=== PATIENT | female | born 1965 | race Asian ===

== ENCOUNTER 2020-03-18 11:39 | Outpatient (REF) | payer OTHER, SELFPAY | END 2020-03-18 11:40 | disposition home or self-care (01) | LOC: HO.LAB 11:39 | PROVIDERS: PCP Internal Medicine; Visit Provider Internal Medicine | DX: Z20.828 Contact with and (suspected) exposure to other viral communicable diseases (principal) | CPT/HCPCS: 87635 ==

== ENCOUNTER 2020-05-28 17:50 | Outpatient (REF) | payer OTHER, SELFPAY | END 2020-05-28 17:51 | disposition home or self-care (01) | LOC: HO.LAB 17:50 | PROVIDERS: Visit Provider Internal Medicine | DX: Z20.828 Contact with and (suspected) exposure to other viral communicable diseases (principal) | CPT/HCPCS: C9803; U0003 ==

== ENCOUNTER → 2020-06-27 08:29 | Outpatient (BNVA) | payer OTHER, SELFPAY | PROVIDERS: PCP Internal Medicine; Visit Provider Nurse Practitioner | DX: Z13.89 Encounter for screening for other disorder (principal) | CPT/HCPCS: Q3014 ==

== ENCOUNTER 2020-09-23 11:42 | Outpatient (REF) | payer OTHER, SELFPAY ==
[2020-09-23 12:28] LABS: MANUAL DIFF FLAG NO
[2020-09-23 12:36] LABS: Basophils Percent Auto 0.6 % (0-2); Eosinophils Absolute Auto 0.2 X10*3/uL (0.0-0.4); Eosinophils Percent Auto 3.4 % (0-4); Hematocrit 44.9 % (37-47); Hemoglobin 14.6 g/dl (12.0-16.0); Imm Gran Abs Auto 0.01 X10*3/uL (0.00-0.03); Imm Gran Pct Auto 0.2 % (0.0-0.4); Lymphocytes Percent Auto 18.4 % (20-40); Mean Corpuscular HGB Conc 32.5 g/dl (31.0-35.0); Mean Corpuscular Hemoglobin 28.2 pg (27.0-33.0); Mean Corpuscular Volume 86.8 fL (80-98); Mean Platelet Volume 10.9 fL (9.4-12.3); Monocytes Absolute Auto 0.4 X10*3/uL (0.1-1.2); Monocytes Percent Auto 6.6 % (2-11); Neutrophils Absolute Auto 3.8 X10*3/uL (2.0-8.3); Neutrophils Percent Auto 70.8 % (45-73); Platelet Count 189 X10*3/uL (160-400); Red Blood Count 5.17 X10*6/uL (4.20-5.50); Red Cell Distribution Width 14.2 % (11.0-16.0); White Blood Count 5.3 X10*3/uL (4.8-10.8)
[2020-09-23 13:28] LABS: Thyroid Stimulating Hormone 1.79 uIU/mL (0.32-4.0)
[2020-09-23 14:08] LABS: Vitamin B12 242 pg/mL (200-900)
== END 2020-09-23 11:43 | disposition home or self-care (01) ==
LOC: HO.LAB 11:42
PROVIDERS: PCP Internal Medicine; Visit Provider Internal Medicine
DX: L65.9 Nonscarring hair loss, unspecified (principal); R53.83 Other fatigue; D64.9 Anemia, unspecified
CPT/HCPCS: 36415; 82607; 82746; 84443; 85025

== ENCOUNTER 2020-09-25 11:13 | Outpatient (REF) | payer OTHER, SELFPAY ==
[2020-09-25 13:47] LABS: Alanine Aminotransferase 19 U/L (0-31); Albumin Level 4.5 g/dL (3.5-5.0); Alkaline Phosphatase 84 U/L (39-117); Anion Gap 16 (12-20); Aspartate Amino Transferase 20 U/L (5-31); Bilirubin Total 0.5 mg/dL (0.0-1.0); Blood Urea Nitrogen 26 mg/dL (9-16); Calcium 10.2 mg/dL (8.4-10.2); Carbon Dioxide 26 mmol/L (22-29); Chloride 105 mmol/L (96-108); Cholesterol 160 mg/dL; Estimated Glomerular Filt Rate 30; Glucose Fasting 127 mg/dL (60-99); HDL Cholesterol 40 mg/dL; LDL Cholesterol Calculated 82 mg/dl; Potassium 4.5 mmol/L (3.3-5.1); Sodium 142 mmol/L (135-145); Total Protein 7.3 g/dL (6.5-8.0); Triglycerides 192 mg/dL
[2020-09-29 13:27] LABS: Vitamin D 25-OH, D2 7 ng/mL; Vitamin D 25-OH, D3 26 ng/mL; Vitamin D 25-OH, Total 33 ng/mL (30-100)
== END 2020-09-25 11:14 | disposition home or self-care (01) ==
LOC: HO.LAB 11:13
PROVIDERS: PCP Internal Medicine; Visit Provider Internal Medicine
DX: E78.5 Hyperlipidemia, unspecified (principal); I10 Essential (primary) hypertension; E55.9 Vitamin D deficiency, unspecified
CPT/HCPCS: 36415; 80053; 80061; 82306

== ENCOUNTER → 2020-10-25 11:02 | Outpatient (BNVA) | payer OTHER, SELFPAY | PROVIDERS: PCP Internal Medicine; Referring Provider Internal Medicine; Visit Provider Internal Medicine Gastroenterology | DX: K86.9 Disease of pancreas, unspecified (principal); Z94.0 Kidney transplant status; Z79.899 Other long term (current) drug therapy | CPT/HCPCS: 99212 ==

== ENCOUNTER 2020-12-09 09:33 | Outpatient (REF) | payer OTHER, SELFPAY ==
--- NOTE | ~2020-12-09 | US_ITS ---
EXAMINATION: US ABDOMEN COMPLETE CLINICAL INFORMATION: History of kidney transplant. Disease of pancreas, unspecified. COMPARISON: CT abdomen and pelvis 11/14/2019. X-ray KUB 11/06/2019. Ultrasound pelvis 10/19/2019. TECHNIQUE: Real-time imaging of the abdominal viscera. FINDINGS: PANCREAS: The pancreas is homogeneous in echotexture. The pancreatic duct measures 0.3 cm. ABDOMINAL AORTA: The proximal, mid, and distal segments are normal in caliber. INFERIOR VENA CAVA: Visualized portions are normal. LIVER: There are multiple anechoic cysts. The largest cyst in the right hepatic lobe measures 1.1 x 1.1 x 1.0 cm. The liver is normal in size. The liver contour is normal. Parenchymal echogenicity is normal. No focal solid mass seen. There is no intrahepatic biliary duct dilatation seen. GALLBLADDER: Gallbladder wall thickness measures 0.1 cm. The gallbladder is physiologically distended without evidence of stones, sludge, polyps, wall thickening or pericholecystic fluid. COMMON BILE DUCT: Normal in caliber measuring 1.0 cm in diameter. RIGHT KIDNEY: There are several anechoic cysts. No hydronephrosis. No renal calculi or focal parenchymal lesions. The kidney measures 21.0 cm in maximum dimension. LEFT KIDNEY: There are several anechoic cysts. No hydronephrosis. No renal calculi or focal parenchymal lesions. The kidney measures 20.2 cm in maximum dimension. SPLEEN: Normal. The spleen measures 11.5 cm in maximum dimension. FREE FLUID: None. GALLBLADDER: There is a transplant kidney in right lower quadrant measuring 10.9 cm. There is an anechoic cyst seen adjacent to the lower pole of right kidney, likely a right adnexal cyst measuring 3.5 x 3.2 x 4.3 cm. US/US abdomen complete IMPRESSION: Bilateral polycystic kidney disease. Transplanted right kidney is unremarkable except for a small cyst visualized. Adjacent to the lower pole of right transplanted kidney in the right adnexa, there is an ovarian cyst measuring 4.3 cm. Multiple hepatic cysts, largest measuring 1.1 cm.
== END 2020-12-09 09:34 | disposition home or self-care (01) ==
LOC: HO.US 09:33
PROVIDERS: Visit Provider Internal Medicine Gastroenterology
DX: K86.9 Disease of pancreas, unspecified (principal); Z94.0 Kidney transplant status
CPT/HCPCS: 76700

== ENCOUNTER 2020-12-25 10:09 | Outpatient (REF) | payer OTHER, SELFPAY ==
--- NOTE | ~2020-12-25 | XR_ITS ---
EXAMINATION: XR ANKLE, BILATERAL CLINICAL INFORMATION: Pain. COMPARISON: 10/22/2015 TECHNIQUE: 3 views of each ankle. FINDINGS: LEFT ANKLE: There is no evidence of acute fracture or dislocation of the left ankle. No significant degenerative changes identified. Ankle mortise intact. Prominent Achilles tendon calcification present. No ankle effusion appreciated. RIGHT ANKLE: Patient status post previous right ankle fracture with sideplate and screws seen within the distal fibula and 2 screws through the medial malleolus. There is loss of the ankle joint space with subchondral cyst formation seen about the talar dome. No effusion appreciated. There is some calcification of the interosseous ligament. XR/XR ankle LT min 3V IMPRESSION: No significant left ankle abnormality appreciated. Severe right ankle degenerative change with hardware in place.
--- NOTE | ~2020-12-25 | XR_ITS ---
EXAMINATION: XR ANKLE, BILATERAL CLINICAL INFORMATION: Pain. COMPARISON: 10/22/2015 TECHNIQUE: 3 views of each ankle. FINDINGS: LEFT ANKLE: There is no evidence of acute fracture or dislocation of the left ankle. No significant degenerative changes identified. Ankle mortise intact. Prominent Achilles tendon calcification present. No ankle effusion appreciated. RIGHT ANKLE: Patient status post previous right ankle fracture with sideplate and screws seen within the distal fibula and 2 screws through the medial malleolus. There is loss of the ankle joint space with subchondral cyst formation seen about the talar dome. No effusion appreciated. There is some calcification of the interosseous ligament. XR/XR ankle RT min 3V IMPRESSION: No significant left ankle abnormality appreciated. Severe right ankle degenerative change with hardware in place.
[2020-12-25 10:58] LABS: MANUAL DIFF FLAG NO
[2020-12-25 11:02] LABS: Basophils Percent Auto 0.4 % (0-2); Eosinophils Absolute Auto 0.2 X10*3/uL (0.0-0.4); Hematocrit 45.5 % (37-47); Hemoglobin 14.8 g/dl (12.0-16.0); Imm Gran Abs Auto 0.01 X10*3/uL (0.00-0.03); Imm Gran Pct Auto 0.2 % (0.0-0.4); Lymphocytes Absolute Auto 0.8 X10*3/uL (1.2-4.9); Lymphocytes Percent Auto 15.3 % (20-40); Mean Corpuscular HGB Conc 32.5 g/dl (31.0-35.0); Mean Corpuscular Hemoglobin 27.7 pg (27.0-33.0); Mean Platelet Volume 10.8 fL (9.4-12.3); Monocytes Absolute Auto 0.4 X10*3/uL (0.1-1.2); Monocytes Percent Auto 6.4 % (2-11); Neutrophils Percent Auto 73.7 % (45-73); Platelet Count 200 X10*3/uL (160-400); Red Blood Count 5.35 X10*6/uL (4.20-5.50); Red Cell Distribution Width 13.5 % (11.0-16.0); White Blood Count 5.5 X10*3/uL (4.8-10.8)
[2020-12-25 11:23] LABS: Alanine Aminotransferase 14 U/L (0-31); Albumin Level 4.3 g/dL (3.5-5.0); Alkaline Phosphatase 86 U/L (39-117); Anion Gap 13 (12-20); Aspartate Amino Transferase 16 U/L (5-31); Bilirubin Total 0.6 mg/dL (0.0-1.0); Blood Urea Nitrogen 22 mg/dL (9-16); Calcium 10.2 mg/dL (8.4-10.2); Carbon Dioxide 28 mmol/L (22-29); Chloride 104 mmol/L (96-108); Cholesterol 165 mg/dL; Estimated Glomerular Filt Rate 34; Glucose Fasting 156 mg/dL (60-99); HDL Cholesterol 40 mg/dL; LDL Cholesterol Calculated 87 mg/dl; Potassium 4.6 mmol/L (3.3-5.1); Sodium 140 mmol/L (135-145); Total Protein 6.9 g/dL (6.5-8.0); Triglycerides 192 mg/dL
[2020-12-29 13:31] LABS: Vitamin D 25-OH, D2 6 ng/mL; Vitamin D 25-OH, D3 23 ng/mL; Vitamin D 25-OH, Total 29 ng/mL (30-100)
== END 2020-12-25 10:10 | disposition home or self-care (01) ==
LOC: HO.XRAY 10:09
PROVIDERS: PCP Internal Medicine; Visit Provider Internal Medicine
DX: M25.571 Pain in right ankle and joints of right foot (principal); M25.572 Pain in left ankle and joints of left foot; D64.9 Anemia, unspecified; E78.5 Hyperlipidemia, unspecified; M54.9 Dorsalgia, unspecified; E55.9 Vitamin D deficiency, unspecified
CPT/HCPCS: 36415; 73610; 80053; 80061; 82306; 85025

== ENCOUNTER → 2021-02-04 10:40 | Outpatient (BNVA) | payer OTHER, SELFPAY | PROVIDERS: PCP Internal Medicine; Visit Provider Internal Medicine Gastroenterology | CPT/HCPCS: Q3014 ==

== ENCOUNTER 2021-03-18 12:08 | Outpatient (REF) | payer OTHER, SELFPAY ==
[2021-03-18 13:02] LABS: Appearance Urine HAZY; Color Urine YELLOW; Glucose Urine UA NEG (NEG); Leukocyte Esterase Urine TRACE (NEG); Nitrite Urine NEG (NEG); Specific Gravity - Urine 1.025 (1.005-1.025); UACC Culture Trigger YES; Urine Blood TRACE (NEG); Urine Ketones NEG (NEG); Urine Protein TRACE MG/DL (NEG-TRACE)
[2021-03-18 13:08] LABS: Bacteria Urine 1+ /LPF; Mucus Urine 1+ /LPF; Renal Epithelial Cells Urine TRACE /LPF; Squamous Epithelial Cell Urine 2+ /LPF; WBC Urine 30-49 /HPF (0-4)
== END 2021-03-18 12:09 | disposition home or self-care (01) ==
LOC: HO.LAB 12:08
PROVIDERS: PCP Internal Medicine; Visit Provider Physician Assistant
DX: R31.9 Hematuria, unspecified (principal)
CPT/HCPCS: 81001; 81003; 87086; 87088; 87186

== ENCOUNTER → 2021-07-14 09:33 | Outpatient (BNVA) | payer MEDICAID, SELFPAY | PROVIDERS: PCP Internal Medicine; Referring Provider Internal Medicine; Visit Provider Internal Medicine Gastroenterology | DX: K59.09 Other constipation (principal) | CPT/HCPCS: 99212 ==

== ENCOUNTER 2021-08-19 12:40 | Outpatient (REF) | payer MEDICAID, SELFPAY ==
--- NOTE | ~2021-08-19 | MM_ITS ---
EXAMINATION: MM SCREENING DIGITAL BREAST TOMOSYNTHESIS, BILATERAL CLINICAL INFORMATION: Screening. Asymptomatic. The lifetime risk of breast cancer based on the Tyrer-Cuzick Model is 6%. COMPARISON: Mammography: December 14, 2018 and studies dating back to January 14, 2015. TECHNIQUE: Digital breast tomosynthesis is performed in both the craniocaudal and mediolateral oblique views along with computer-aided detection (CAD). Synthesized 2D images are generated from the tomosynthesis. Cleavage view also performed. FINDINGS: The breasts are almost entirely fatty (ACR BI-RADS breast composition Category a). There are no significant masses, abnormal calcifications, or other abnormalities. MM/MM tomosynthesis screening BI IMPRESSION: There are no significant changes from prior study. ASSESSMENT: BI-RADS 1: Negative RECOMMENDATION: Routine annual mammography screening. This patient's information was entered into a reminder system with a target due date for their next mammogram.
== END 2021-08-19 12:41 | disposition home or self-care (01) ==
LOC: HO.MAMMO 12:40
PROVIDERS: PCP Internal Medicine; Visit Provider Internal Medicine
DX: Z12.31 Encounter for screening mammogram for malignant neoplasm of breast (principal)
CPT/HCPCS: 77063; 77067

== ENCOUNTER 2021-12-12 07:36 | Outpatient (REF) | payer OTHER, SELFPAY ==
[2021-12-12 08:04] LABS: MANUAL DIFF FLAG NO
[2021-12-12 08:14] LABS: Basophils Percent Auto 0.7 % (0-2); Eosinophils Absolute Auto 0.3 X10*3/uL (0.0-0.4); Hematocrit 43.3 % (37.0-47.0); Hemoglobin 14.2 g/dl (12.0-16.0); Imm Gran Abs Auto 0.01 X10*3/uL (0.00-0.03); Imm Gran Pct Auto 0.2 % (0.0-0.4); Lymphocytes Absolute Auto 1.1 X10*3/uL (1.2-4.9); Lymphocytes Percent Auto 19.5 % (20-40); Mean Corpuscular HGB Conc 32.8 g/dl (31.0-35.0); Mean Corpuscular Hemoglobin 28.2 pg (27.0-33.0); Mean Corpuscular Volume 85.9 fL (80.0-98.0); Mean Platelet Volume 10.6 fL (9.4-12.3); Monocytes Absolute Auto 0.5 X10*3/uL (0.1-1.2); Monocytes Percent Auto 8.6 % (2-11); Neutrophils Absolute Auto 3.6 x10*3/uL (2.0-8.3); Platelet Count 189 X10*3/uL (160-400); Red Blood Count 5.04 X10*6/uL (4.20-5.50); Red Cell Distribution Width 13.3 % (11.0-16.0); White Blood Count 5.4 X10*3/uL (4.8-10.8)
[2021-12-12 09:02] LABS: Alanine Aminotransferase 17 U/L (0-31); Albumin Level 4.5 g/dL (3.5-5.0); Alkaline Phosphatase 90 U/L (39-117); Anion Gap 12 (12-20); Aspartate Amino Transferase 18 U/L (5-31); Bilirubin Total 0.4 mg/dL (0.0-1.0); Blood Urea Nitrogen 19 mg/dL (9-16); Calcium 9.7 mg/dL (8.4-10.2); Carbon Dioxide 26 mmol/L (22-29); Chloride 106 mmol/L (96-108); Cholesterol 194 mg/dL; Estimated Glomerular Filt Rate 34; Glucose Fasting 171 mg/dL (60-99); HDL Cholesterol 36 mg/dL; LDL Cholesterol Calculated 103 mg/dl; Potassium 4.2 mmol/L (3.3-5.1); Sodium 140 mmol/L (135-145); Total Protein 7.3 g/dL (6.5-8.0); Triglycerides 277 mg/dL
[2021-12-12 09:07] LABS: Vitamin D 25-OH Total 26.4 ng/mL (>30)
== END 2021-12-12 07:37 | disposition home or self-care (01) ==
LOC: HO.LAB 07:36
PROVIDERS: PCP Internal Medicine; Visit Provider Internal Medicine
DX: K59.04 Chronic idiopathic constipation (principal); E78.5 Hyperlipidemia, unspecified; E55.9 Vitamin D deficiency, unspecified; I10 Essential (primary) hypertension
CPT/HCPCS: 36415; 80053; 80061; 82306; 85025

== ENCOUNTER 2022-01-26 07:22 | Day surgery (SDC) | payer OTHER, SELFPAY ==
--- NOTE | 2021-10-06 13:24 | HO.ANESPROP2 ---
HPI - Anesthesia Eval Consult details Narrative: 56yo F for Upper Endoscopy s/p renal transplant 2018 [facility] Active Problems Active Problems: All Active Problems (Updated 09/10/21 @ 11:08 by Jessica Dietz MD) Diabetes mellitus (Acute) UTI (urinary tract infection) (Acute) Right ankle pain (Acute) Left ankle pain (Acute) Pedal edema (Acute) Fatigue (Acute) Hair loss (Acute) Back pain (Acute) Pancreatic lesion (Acute) Pneumonia due to COVID-19 virus (Acute) Essential hypertension (Acute) Kidney transplant recipient (Acute) Chronic idiopathic constipation (Acute) Hemorrhoids (Acute) GERD (gastroesophageal reflux disease) (Acute) Irritable bowel syndrome with constipation (Acute) Past Medical History Medical History (Updated 09/10/21 @ 11:08 by Jessica Dietz MD) Back pain Diabetes mellitus Essential hypertension Fatigue Hair loss Left ankle pain Pancreatic lesion Pneumonia due to COVID-19 virus Right ankle pain Family History Family History Father CVD (cardiovascular disease) Prostate cancer Mother No problems noted. Surgical History Surgical History AV fistula History of benign breast tumor History of foot surgery History of lipoma History of tubal ligation Hx of colonoscopy Kidney transplant recipient Kidney transplant status Social History Social History (Updated 09/10/21 @ 10:49 by Jessica Dietz MD) Household Members: Children Housing: Apartment Alcohol intake: never Patient Tobacco Use Status: Former Tobacco user Tobacco use type: Cigarette e-Cigarette/Vaping Use: Never Used Second Hand Smoke Exposure: No service: No Current occupational status: unemployed Cognitive needs: No Hearing needs: No Vision needs: No Meds Allergies Allergy/AdvReac Type Severity Reaction Status Date / Time amlodipine AdvReac Intermediate leg edema Verified 09/10/21 10:44 Home Medications Medication Instructions Recorded Confirmed Last Taken Type dexlansoprazole 60 mg 60 mg PO DAILY 04/01/20 09/10/21 Unknown History capsule,biphase delayed release (Dexilant) docusate sodium 100 mg capsule 100 mg PO DAILY 04/01/20 09/10/21 Unknown History (Colace) lipase 3,000-protease PO 04/01/20 09/10/21 Unknown History 9,500-amylase 15,000 unit capsule, delayed rel (Creon) ferrous sulfate 325 mg (65 mg 325 mg PO DAILY 06/20/20 09/10/21 Unknown History iron) tablet mycophenolate sodium 180 mg 540 mg PO BID tab 06/20/20 09/10/21 Unknown History tablet,delayed release sodium bicarbonate 650 mg tablet 650 mg PO BID 06/20/20 09/10/21 Unknown History polyethylene glycol 3350 17 17 g PO DAILY 06/27/20 09/10/21 Unknown History gram/dose oral powder (Miralax) minoxidil 2 % topical solution 1 ml TOPICAL BID 09/18/20 09/10/21 Unknown History furosemide 40 mg tablet 40 mg PO DAILY 11/19/20 09/10/21 Unknown History atorvastatin 40 mg tablet 40 mg PO BEDTIME 02/04/21 09/10/21 Unknown History calcitriol 0.25 mcg capsule 0.25 mcg PO DAILY 02/04/21 09/10/21 Unknown History labetalol 200 mg tablet 200 mg PO BID 02/04/21 09/10/21 Unknown History nifedipine 90 mg tablet,extended 90 mg PO DAILY 02/04/21 09/10/21 Unknown History release nifedipine 60 mg tablet,extended 60 mg PO DAILY 07/14/21 09/10/21 Unknown History release 24 hr gabapentin 100 mg capsule 100 mg PO BEDTIME 09/10/21 09/10/21 Unknown History Exam Exam Date and Time: October 06, 2021 1324 Pertinent Lab Results Pertinent Lab Results: Laboratory Tests 12/25/20 12/25/20 10:15 10:15 WBC 5.5 Hgb 14.8 Hct 45.5 Plt Count 200 Sodium 140 Potassium 4.6 Chloride 104 Carbon Dioxide 28 BUN 22 H Creatinine 1.58 H Assessment and Plan Assessment Anesthesia Assessment: Chart Reviewed
[2022-01-26 06:51] VITALS: BMI 34.7
[2022-01-26 07:44] VITALS: BP 161/66; PULSE 73; RESP 18; TEMP 36.6; O2SAT 98
[2022-01-26 07:56] LABS: Glucose, Whole Blood 149 mg/dL (60-115)
[2022-01-26] MEDS: Lactated Ringers 1,000 ML 50 ML IVCONT (08:14)
--- NOTE | 2022-01-26 08:48 | MHC.SHP ---
Pre-Procedural Eval Section A Date of Service: 01/26/22 Section B Chief Complaint: epigastric pain Details of Present Illness: also ongoing constipation and small amount of rectal bleeding, blamed on hemorrhoids Relevant Family History (Specify if Yes): No Relevant Social History: None Present Medications: see Short Stay Collaborative assessment Medical History: Significant History (Back pain Essential hypertension Fatigue Hair loss Left ankle pain Pancreatic lesion Pneumonia due to COVID-19 virus Right ankle pain) History of Previous Operations: Relevant previous surgery/procedure and date(s) (AV fistula History of benign breast tumor History of foot surgery History of lipoma History of tubal ligation Hx of colonoscopy Kidney transplant recipient Kidney transplant status) Allergies: Allergies Allergy/AdvReac Type Severity Reaction Status Date / Time amlodipine AdvReac Intermediate leg edema Verified 11/27/21 14:59 Review of Systems Sugical H&P ROS: Negative: Constitution, Cardiovascular, Respiratory, Neurological, Psychiatric, Hem-Onc, Allergic/Immunologic, Gastrointestinal, Genitourinary, Musculoskeletal, Integumentary, Endocrine and Eyes/Ears/Nose/Throat Exam Surgical H&P Exam: Normal: HEENT, Normal: Heart, Normal: Lungs, Normal: Extremities, Normal: Abdomen, Normal: Skin and Normal: Neurological Plan Diagnosis/Plan: Unchanged I have reviewed the history and physical and performed a pertinent physical examination on my patient. No changes have occurred unless specified.
--- NOTE | 2022-01-26 08:58 | HO.ANESPROP2 ---
[facility] Active Problems Active Problems: All Active Problems (Updated 11/27/21 @ 15:07 by HAI Watson) Rash (Acute) Diabetes mellitus (Acute) UTI (urinary tract infection) (Acute) Right ankle pain (Acute) Left ankle pain (Acute) Pedal edema (Acute) Fatigue (Acute) Hair loss (Acute) Back pain (Acute) Pancreatic lesion (Acute) Pneumonia due to COVID-19 virus (Acute) Essential hypertension (Acute) Kidney transplant recipient (Acute) Chronic idiopathic constipation (Acute) Hemorrhoids (Acute) GERD (gastroesophageal reflux disease) (Acute) Irritable bowel syndrome with constipation (Acute) Past Medical History Medical History Back pain Diabetes mellitus Essential hypertension Fatigue Hair loss Left ankle pain Pancreatic lesion Pneumonia due to COVID-19 virus Right ankle pain Family History Family History Father CVD (cardiovascular disease) Prostate cancer Mother No problems noted. Family history of problems with anesthesia: No Surgical History Surgical History AV fistula History of benign breast tumor History of foot surgery History of lipoma History of tubal ligation Hx of colonoscopy Kidney transplant recipient Kidney transplant status History of Problems with Anesthesia: No Social History Social History Household Members: Children Housing: Apartment Alcohol intake: never Patient Tobacco Use Status: Former Tobacco user Tobacco use type: Cigarette e-Cigarette/Vaping Use: Never Used Second Hand Smoke Exposure: No Are you DNR?: No Advance Directives: No Advance Directives Information Provided: Yes service: No Current occupational status: unemployed Cognitive needs: No Hearing needs: No Vision needs: No Meds Allergies Allergy/AdvReac Type Severity Reaction Status Date / Time amlodipine AdvReac Intermediate leg edema Verified 11/27/21 14:59 Active Medications: Current Medications Lactated Ringer's (Lr) 1,000 mls @ 50 mls/hr IVCONT .Q20H ELIDA Last Admin: 01/26/22 08:14 Dose: 50 mls/hr Home Medications Medication Instructions Recorded Confirmed Last Taken Type dexlansoprazole 60 mg 60 mg PO DAILY 04/01/20 11/27/21 Unknown History capsule,biphase delayed release (Dexilant) lipase 3,000-protease PO 04/01/20 11/27/21 Unknown History 9,500-amylase 15,000 unit capsule, delayed rel (Creon) ferrous sulfate 325 mg (65 mg 325 mg PO DAILY 06/20/20 11/27/21 Unknown History iron) tablet mycophenolate sodium 180 mg 540 mg PO BID 06/20/20 11/27/21 Unknown History tablet,delayed release sodium bicarbonate 650 mg tablet 650 mg PO BID 06/20/20 11/27/21 Unknown History minoxidil 2 % topical solution 1 ml topical BID 09/18/20 11/27/21 Unknown History furosemide 40 mg tablet 40 mg PO DAILY 11/19/20 11/27/21 Unknown History atorvastatin 40 mg tablet 40 mg PO BEDTIME 02/04/21 11/27/21 Unknown History labetalol 200 mg tablet 200 mg PO BID 02/04/21 11/27/21 Unknown History nifedipine 90 mg tablet,extended 90 mg PO DAILY 02/04/21 11/27/21 01/26/22 History release gabapentin 100 mg capsule 100 mg PO BEDTIME neuropathic pain 09/10/21 11/27/21 Unknown History dapagliflozin 5 mg tablet (Farxiga) 1 tab PO DAILY 01/26/22 01/26/22 Unknown History Exam Exam Date and Time: January 26, 2022 0858 Height,Weight and Vital Signs: Height 5 ft 1 in Weight 83.461 kg Last Vital Signs Temp 98 F 01/26/22 07:44 Pulse 73 01/26/22 07:44 Resp 18 01/26/22 07:44 BP 161/66 H 01/26/22 07:44 Pulse Ox 98 01/26/22 07:44 O2 Del Method 01/26/22 07:44 Pertinent Lab Results Pertinent Lab Results: Laboratory Tests 01/26/22 07:52 POC Glucose 149 H Airway Mallampati Class: II TM Dist: >3cm Neck ROM: Full Assessment and Plan Assessment Anesthesia Assessment: Anesthesia Plan Discussed and Chart Reviewed Final Anesthetic Review Family History of Problems with Anesthesia: No History of Problems with Anesthesia: No NPO: Yes ASA Class: III Final Preanesthetic Review: No Changes in Pt Med Stat, Meds/Allgs Chart Reviewed, Consent Obtained/Reviewed and Anes Risks/Benef Reviewed Patient Risk: Intermediate Procedure Risk: Low Anesthetic Plan Anesthetic Plan: MAC: Disposition: Standard PACU
--- NOTE | 2022-01-26 09:01 | W.PM.OPN ---
Operative Note Operative Note Date of Service: 01/26/22 Narrative: Procedure Description: EGD Indication: abdominal pain Anesthesia: MAC FLEXIBLE TRANSORAL UPPER GASTROINTESTINAL ENDOSCOPY UPPER ENDOSCOPY Consent: Indications for the procedure and potential complications of bleeding, perforation, reaction to medications and missed diagnosis were discussed with the patient and informed consent was obtained. Instrument: Olympus GIF H 190 J mid size upper endoscope Monitoring: Vital signs and clinical assessment, continuous EKG monitoring, Pulse oximetry, Carbon Dioxide monitoring and blood pressure monitoring were done throughout the procedure. Procedure: The patient was placed in the left lateral decubitis position and pre-procedure medications were administered and a bite block was placed. The endoscope was inserted into the mouth and advanced under direct vision to the third part of duodenum. A careful inspection was made as the upper endoscope was withdrawn including a retroflexed examination of the proximal stomach; Findings and interventions are described below. Findings: Larynx:normal Esophagus: GE junction at 38 cm, diaphragm hiatus at 38 cm, mild inflammation at GEJ bx taken Stomach: Patchy gastric erythema farhana fundus and proximal stomach with granular appearance. Biopsies were obtained. Grade 2 flap valve on retroflexed examination of the cardia. Duodenum: Mild bulbar erythema, normal descending duodenum, bx taken Intervention: Biopsies as noted above Impression/Findings: gastritis duodenitis mild esophagitis PLAN: await bx, if h pylori pos then treat check compliance with PPI give her dose of lactulose and MOM before d/c see if helps her constipation, may need colonoscopy in near future
[2022-01-26 09:31] VITALS: BP 100/41; PULSE 66; RESP 15; TEMP 36.6; O2SAT 97
[2022-01-26 09:46] VITALS: BP 111/59; PULSE 69; RESP 16; TEMP 36.6; O2SAT 99
[2022-01-26] MEDS: Lactulose 20 GM/30 ML SOLUTION PO (09:50)
[2022-01-26] MEDS: Milk of Magnesia 30 ML ORAL.SUSP 15 ML PO (09:51)
== END 2022-01-26 11:00 | disposition home or self-care (01) ==
PROVIDERS: PCP Internal Medicine; Visit Provider Internal Medicine Gastroenterology
PROC: 0DJ08ZZ Inspection of Upper Intestinal Tract, Via Natural or Artificial Opening Endoscopic (ICD-10-PCS; CPT 43235; principal; 2022-01-26 09:20)
DX: K29.80 Duodenitis without bleeding (principal); K29.50 Unspecified chronic gastritis without bleeding; B96.81 Helicobacter pylori [H. pylori] as the cause of diseases classified elsewhere; K20.80 Other esophagitis without bleeding; K44.9 Diaphragmatic hernia without obstruction or gangrene; K59.00 Constipation, unspecified; I10 Essential (primary) hypertension; E11.9 Type 2 diabetes mellitus without complications; K86.9 Disease of pancreas, unspecified; K58.1 Irritable bowel syndrome with constipation; L65.9 Nonscarring hair loss, unspecified; R53.83 Other fatigue; Z86.16 Personal history of COVID-19; Z87.01 Personal history of pneumonia (recurrent); Z94.0 Kidney transplant status; Z79.899 Other long term (current) drug therapy; Z88.8 Allergy status to other drugs, medicaments and biological substances; Z87.891 Personal history of nicotine dependence
CPT/HCPCS: 43239; 82947; 88305; 88342

== ENCOUNTER 2022-03-23 08:33 | Outpatient (REF) | payer OTHER, SELFPAY ==
--- NOTE | ~2022-03-23 | XR_ITS ---
EXAMINATION: XR SHOULDER, LEFT CLINICAL INFORMATION: Pain COMPARISON: None TECHNIQUE: AP external rotation, Grashey, scapular Y, and axillary views of the left shoulder. FINDINGS: Bone alignment is normal. No fracture or dislocation. Normal glenohumeral joint. Mild arthritis at the acromioclavicular joint. Surgical clips adjacent to the proximal lateral humeral shaft. XR/XR shoulder LT min 2V IMPRESSION: Mild arthritis at the acromioclavicular joint. Mild arthritis at the acromioclavicular joint.
[2022-03-23 08:42] LABS: MANUAL DIFF FLAG NO
[2022-03-23 08:58] LABS: INTERNATIONAL NORM RATIO 0.9 (0.9-1.1); Prothrombin Time 10.5 SEC (10.0-13.1)
[2022-03-23 09:00] LABS: Basophils Percent Auto 0.3 % (0-2); Eosinophils Absolute Auto 0.2 X10*3/uL (0.0-0.4); Eosinophils Percent Auto 2.6 % (0-4); Hematocrit 44.3 % (37.0-47.0); Hemoglobin 14.4 g/dl (12.0-16.0); Imm Gran Abs Auto 0.02 X10*3/uL (0.00-0.03); Imm Gran Pct Auto 0.3 % (0.0-0.4); Lymphocytes Absolute Auto 0.9 X10*3/uL (1.2-4.9); Mean Corpuscular HGB Conc 32.5 g/dl (31.0-35.0); Mean Corpuscular Hemoglobin 27.8 pg (27.0-33.0); Mean Corpuscular Volume 85.5 fL (80.0-98.0); Mean Platelet Volume 10.6 fL (9.4-12.3); Monocytes Absolute Auto 0.5 X10*3/uL (0.1-1.2); Monocytes Percent Auto 7.5 % (2-11); Neutrophils Percent Auto 75.3 % (45-73); Platelet Count 184 X10*3/uL (160-400); Red Blood Count 5.18 X10*6/uL (4.20-5.50); Red Cell Distribution Width 13.4 % (11.0-16.0); White Blood Count 6.6 X10*3/uL (4.8-10.8)
[2022-03-23 09:04] LABS: Estimated Average Glucose 137 mg/dL; Hemoglobin A1c % 6.4 %
[2022-03-23 09:23] LABS: Alanine Aminotransferase 16 U/L (0-31); Albumin Level 4.5 g/dL (3.5-5.0); Alkaline Phosphatase 83 U/L (39-117); Anion Gap 17 (12-20); Aspartate Amino Transferase 18 U/L (5-31); Bilirubin Total 0.4 mg/dL (0.0-1.0); Blood Urea Nitrogen 25 mg/dL (9-16); Calcium 10.1 mg/dL (8.4-10.2); Carbon Dioxide 25 mmol/L (22-29); Chloride 105 mmol/L (96-108); Cholesterol 168 mg/dL; Estimated Glomerular Filt Rate 36; Glucose Fasting 150 mg/dL (60-99); HDL Cholesterol 34 mg/dL; LDL Cholesterol Calculated 74 mg/dl; Potassium 4.7 mmol/L (3.3-5.1); Sodium 142 mmol/L (135-145); Total Protein 7.1 g/dL (6.5-8.0); Triglycerides 301 mg/dL
[2022-03-23 09:44] LABS: Vitamin D 25-OH Total 33.3 ng/mL (>30)
[2022-03-23 11:00] LABS: Creatinine Urine 125.72 mg/dL
[2022-03-23 13:53] LABS: Folate 14.7 ng/mL (> or = 4.0); Vitamin B12 312 pg/mL (200-900)
== END 2022-03-23 08:34 | disposition home or self-care (01) ==
LOC: HO.XRAY 08:33
PROVIDERS: PCP Internal Medicine; Visit Provider Nurse Practitioner Family
DX: M25.512 Pain in left shoulder (principal); E11.9 Type 2 diabetes mellitus without complications; R58 Hemorrhage, not elsewhere classified; I10 Essential (primary) hypertension
CPT/HCPCS: 36415; 73030; 80053; 80061; 82043; 82306; 82607; 82746; 83036; 85025; 85610

== ENCOUNTER → 2022-05-04 14:12 | Outpatient (BNVA) | payer OTHER, SELFPAY | PROVIDERS: PCP Internal Medicine; Referring Provider Internal Medicine; Visit Provider Internal Medicine Gastroenterology | DX: K58.1 Irritable bowel syndrome with constipation (principal); K92.1 Melena; K29.70 Gastritis, unspecified, without bleeding; B96.81 Helicobacter pylori [H. pylori] as the cause of diseases classified elsewhere; Z98.890 Other specified postprocedural states; Z94.0 Kidney transplant status | CPT/HCPCS: 99212 ==

== ENCOUNTER 2022-07-16 08:44 | Outpatient (REF) | payer OTHER, SELFPAY ==
[2022-07-16 09:57] LABS: Alanine Aminotransferase 17 U/L (0-31); Albumin Level 4.6 g/dL (3.5-5.0); Alkaline Phosphatase 85 U/L (39-117); Anion Gap 15 (12-20); Aspartate Amino Transferase 17 U/L (5-31); Bilirubin Total 0.6 mg/dL (0.0-1.0); Blood Urea Nitrogen 22 mg/dL (9-16); Calcium 10.2 mg/dL (8.4-10.2); Carbon Dioxide 26 mmol/L (22-29); Chloride 109 mmol/L (96-108); Cholesterol 170 mg/dL; Estimated Glomerular Filt Rate 34; Glucose Fasting 153 mg/dL (60-99); HDL Cholesterol 45 mg/dL; LDL Cholesterol Calculated 93 mg/dl; Potassium 4.8 mmol/L (3.3-5.1); Sodium 145 mmol/L (135-145); Triglycerides 160 mg/dL
[2022-07-16 10:14] LABS: Vitamin D 25-OH Total 33.6 ng/mL (>30)
[2022-07-16 12:45] LABS: Microalbum/Creatinine Ratio Ur 52.9 ug/mg cr
== END 2022-07-16 08:45 | disposition home or self-care (01) ==
LOC: HO.LAB 08:44
PROVIDERS: PCP Internal Medicine; Visit Provider Internal Medicine
DX: E11.9 Type 2 diabetes mellitus without complications (principal); E78.5 Hyperlipidemia, unspecified; E55.9 Vitamin D deficiency, unspecified
CPT/HCPCS: 36415; 80053; 80061; 82043; 82306

== ENCOUNTER 2022-08-06 12:46 | Outpatient (REF) | payer OTHER, SELFPAY ==
[2022-08-06 13:53] LABS: Influenza A PCR NEGATIVE (Negative); Influenza B PCR NEGATIVE (Negative); Resp Syncy Virus RNA Qual PCR NEGATIVE (Negative); SARS COV2 PCR INHOUSE NEGATIVE (Negative)
== END 2022-08-06 12:47 | disposition home or self-care (01) ==
LOC: HO.LNP 12:46
PROVIDERS: Visit Provider Nurse Practitioner Family
DX: R09.89 Other specified symptoms and signs involving the circulatory and respiratory systems (principal); J02.9 Acute pharyngitis, unspecified; Z20.822 Contact with and (suspected) exposure to COVID-19
CPT/HCPCS: 0241U

== ENCOUNTER 2022-09-01 13:36 | Outpatient (REF) | payer OTHER, SELFPAY ==
--- NOTE | ~2022-09-01 | MM_ITS ---
EXAMINATION: MM SCREENING DIGITAL BREAST TOMOSYNTHESIS, BILATERAL CLINICAL INFORMATION: Screening. Asymptomatic. The lifetime risk of breast cancer based on the Tyrer-Cuzick Model is 5%. COMPARISON: Mammography: 08/19/2021, 12/14/2018, 06/08/2018, 11/08/2017, 05/10/2017, 10/16/2016 TECHNIQUE: Digital breast tomosynthesis is performed in both the craniocaudal and mediolateral oblique views along with computer-aided detection (CAD). Synthesized 2D images are generated from the tomosynthesis. FINDINGS: The breasts are almost entirely fatty (ACR BI-RADS breast composition Category a). There are no significant masses, abnormal calcifications, or other abnormalities. Parenchymal pattern is similar to prior studies. There is no developing density or architectural abnormality. The axilla and skin contours are unremarkable. No significant changes. MM/MM tomosynthesis screening BI IMPRESSION: No mammographic evidence of malignancy. ASSESSMENT: BI-RADS 1: Negative RECOMMENDATION: Routine annual mammography screening. This patient's information was entered into a reminder system with a target due date for their next mammogram.
== END 2022-09-01 13:37 | disposition home or self-care (01) ==
LOC: HO.MAMMO 13:36
PROVIDERS: PCP Internal Medicine; Visit Provider Internal Medicine
DX: Z12.31 Encounter for screening mammogram for malignant neoplasm of breast (principal)
CPT/HCPCS: 77063; 77067

== ENCOUNTER 2022-09-08 11:59 | Emergency (ER) | payer OTHER, SELFPAY ==
[2022-09-08 12:06] VITALS: BP 160/64; PULSE 73; RESP 18; TEMP 36.9; O2SAT 98; BMI 33.2
--- NOTE | 2022-09-08 12:06 | ED_ITS ---
HPI - Eye Problem General Chief complaint: Eye Problems <JANINE Darby - Last Filed: 09/08/22 12:16> Stated complaint: L eye infection sent by walkin <JANINE Darby - Last Filed: 09/08/22 12:16> Time Seen by Provider: 09/08/22 12:20 <JANINE Darby - Last Filed: 09/08/22 12:16> History of Present Illness HPI Narrative: Patient complains of itchiness scratchiness and blurriness in the left eye accompanied by copious yellow discharge which crusted her I close this morning, she went to urgent care and they wrote a note expressing concern about orbital cellulitis Patient denies any significant eye pain, no vision loss no vision change no fevers no headaches <JANINE Shine - Last Filed: 09/08/22 14:05> Related Data Home medications: Home Medications Medication Instructions Recorded Confirmed mycophenolate sodium 180 mg 540 mg PO BID 06/20/20 08/06/22 tablet,delayed release atorvastatin 40 mg tablet 40 mg PO BEDTIME 02/04/21 08/06/22 nifedipine 60 mg tablet,extended 60 mg PO DAILY 05/04/22 08/06/22 release 24 hr tacrolimus 1 mg capsule, 0 mg PO 05/04/22 08/06/22 immediate-release dapagliflozin 10 mg tablet 10 mg PO 07/16/22 08/06/22 (Farxiga) Previous Rx's Medication Instructions Recorded blood-glucose meter (FreeStyle #1 ea 09/10/21 Lite Meter kit) blood sugar diagnostic (FreeStyle #100 ea 03/09/22 Lite Strips) lancets 28 gauge (FreeStyle #100 ea 03/09/22 Lancets) lubiprostone 24 mcg capsule 24 mcg PO BID #60 caps 05/04/22 (Amitiza) cholecalciferol (vitamin D3) 25 25 mcg PO DAILY 90 days #90 caps 07/16/22 mcg (1,000 unit) capsule labetalol 200 mg tablet 200 mg PO BID 90 days #180 tabs 07/16/22 doxycycline monohydrate 100 mg 100 mg PO BID 7 days #14 caps 08/06/22 capsule oxycodone 5 mg tablet 5 mg PO BID PRN pain 28 days #56 08/24/22 tabs erythromycin 5 mg/gram (0.5 %) eye 0.5 inch ophthalmic (eye) TID 5 09/08/22 ointment days #3.5 grams <JANINE Darby - Last Filed: 09/08/22 12:16> Allergies/adverse reactions: Allergies Allergy/AdvReac Type Severity Reaction Status Date / Time amlodipine AdvReac Intermediate leg edema Verified 09/08/22 10:54 morphine AdvReac Mild Rash Verified 09/08/22 10:54 <JANINE Darby - Last Filed: 09/08/22 12:16> [facility] Past Medical History Source: nursing notes reviewed <JANINE Shine - Last Filed: 09/08/22 14:05> Medical History: Medical History Back pain Diabetes mellitus Essential hypertension Fatigue Hair loss Left ankle pain Pancreatic lesion Pneumonia due to COVID-19 virus Right ankle pain <JANINE Darby - Last Filed: 09/08/22 12:16> Surgical History: Surgical History AV fistula History of benign breast tumor History of esophagogastroduodenoscopy (EGD) History of foot surgery History of lipoma History of tubal ligation Hx of colonoscopy Kidney transplant recipient Kidney transplant status <JANINE Darby - Last Filed: 09/08/22 12:16> Family History Family History: Family History Father CVD (cardiovascular disease) Prostate cancer Mother No problems noted. <JANINE Darby - Last Filed: 09/08/22 12:16> Social History Social History: Social History Household Members: Children Housing: Apartment Alcohol intake: never Patient Tobacco Use Status: Former Tobacco user Tobacco use type: Cigarette e-Cigarette/Vaping Use: Never Used Second Hand Smoke Exposure: No Advance Directives: No Advance Directives Information Provided: Yes service: No Current occupational status: unemployed Cognitive needs: No Hearing needs: No Vision needs: No <JANINE Darby - Last Filed: 09/08/22 12:16> Physical Exam Vital Signs: Vital Signs: Last Vital Signs Temp 98.5 F 09/08/22 12:06 Pulse 73 09/08/22 12:06 Resp 18 09/08/22 12:06 BP 160/64 H 09/08/22 12:06 Pulse Ox 98 09/08/22 12:06 O2 Del Method Room Air 09/08/22 12:06 BMI result Body Mass Index 33.2 <JANINE Darby - Last Filed: 09/08/22 12:16> Vital Signs: Last Vital Signs Temp 98.5 F 09/08/22 12:06 Pulse 73 09/08/22 12:06 Resp 18 09/08/22 12:06 BP 160/64 H 09/08/22 12:06 Pulse Ox 98 09/08/22 12:06 O2 Del Method Room Air 09/08/22 12:06 BMI result Body Mass Index 33.2 <JANINE Shine Last Filed: 09/08/22 14:05> General appearance is no acute distress comfortable and cooperative Eye exam visual acuity was 20 30 bilateral, it was symmetric this was done with her glasses on The eye exam pupils equal round reactive to light, extraocular motions were intact and full and painless The exam of the conjunctiva on the left eye there was erythema of the conjunctiva and a small quantity of discharge The eye was not bulging, there is no surrounding erythema in the periorbital area Fluorescein staining did not reveal any abrasion or ulceration, no dye uptake The pharynx was clear Neck is supple Respiratory no distress Skin no rashes <JANINE Shine - Last Filed: 09/08/22 14:05> Course Course Course Narrative: RME--57-year-old female with a past medical history diabetes, hypertension, presenting to ED complaining of left eye pain, erythema, yellow discharge, and foreign body sensation s/p walking dog yesterday. Suspect may have got dogs fur in her eye. Sent in from walk in clinic for r/o orbital cellulitis. Mild periorbital erythema noted with eyelid crusting/discharge. EOM intact without entrapment or pain Concern for bacterial conjunctivitis vs corneal abrasion. Low suspicion for orbital cellulitis/periorbital cellulitis <JANINE Darby - Last Filed: 09/08/22 12:16> RME--57-year-old female with a past medical history diabetes, hypertension, presenting to ED complaining of left eye pain, erythema, yellow discharge, and foreign body sensation s/p walking dog yesterday. Suspect may have got dogs fur in her eye. Sent in from walk in clinic for r/o orbital cellulitis. Mild periorbital erythema noted with eyelid crusting/discharge. EOM intact without entrapment or pain Concern for bacterial conjunctivitis vs corneal abrasion. Low suspicion for orbital cellulitis/periorbital cellulitis Patient with pink eye with no vision loss no eye pain no problem with extraocular movements no discomfort with extraocular movements, no bulging eye, very well-appearing, no evidence of periorbital or orbital cellulitis is treated for conjunctivitis <JANINE Shine - Last Filed: 09/08/22 14:05> Medications Administered Discontinued Medications Generic Name Dose Route Start Last Admin Trade Name Freq PRN Reason Stop Dose Admin Erythromycin 1 cm 09/08/22 13:21 09/08/22 13:32 Erythromycin Base 0.5% Oph Oin 1 Gm Tube EYE-LEFT 09/08/22 13:22 1 cm ONCE ONE Administration Fluorescein Sodium 1 strip 09/08/22 12:07 09/08/22 13:32 Fluorescein Sodium Strip EYE-LEFT 09/08/22 12:08 1 strip ONCE ONE Administration Tetracaine HCl 3 drop 09/08/22 12:07 09/08/22 13:32 Tetracaine Hcl/Pf 0.5% Oph Karin 4 Ml Drops EYE-LEFT 09/08/22 12:08 3 drop ONCE ONE Administration <JANINE Darby - Last Filed: 09/08/22 12:16> Medications Administered Discontinued Medications Generic Name Dose Route Start Last Admin Trade Name Freq PRN Reason Stop Dose Admin Erythromycin 1 cm 09/08/22 13:21 09/08/22 13:32 Erythromycin Base 0.5% Oph Oin 1 Gm Tube EYE-LEFT 09/08/22 13:22 1 cm ONCE ONE Administration Fluorescein Sodium 1 strip 09/08/22 12:07 09/08/22 13:32 Fluorescein Sodium Strip EYE-LEFT 09/08/22 12:08 1 strip ONCE ONE Administration Tetracaine HCl 3 drop 09/08/22 12:07 09/08/22 13:32 Tetracaine Hcl/Pf 0.5% Oph Karin 4 Ml Drops EYE-LEFT 09/08/22 12:08 3 drop ONCE ONE Administration <JANINE Shine - Last Filed: 09/08/22 14:05> Discharge Plan Discharge Clinical Impression: Conjunctivitis <JANINE Darby - Last Filed: 09/08/22 12:16> Patient Disposition: Home, Self-Care <JANINE Darby - Last Filed: 09/08/22 12:16> Additional Instructions: use eye ointment 3 times a day for 5 days as directed Return any time for vision loss eye pain any worse condition If not better in 2 or 3 days follow with eye doctor or your doctor <JANINE Darby - Last Filed: 09/08/22 12:16> Prescriptions: New erythromycin 5 mg/gram (0.5 %) ointment 0.5 inch ophthalmic (eye) TID 5 Days Qty: 3.5 0RF No Action (DME) blood-glucose meter [FreeStyle Lite Meter] Kit See Rx Instructions .Route Qty: 1 0RF Rx Instructions: As directed (DME) FreeStyle Lite Strips Strip See Rx Instructions .Route Qty: 100 2RF Rx Instructions: Use 1 test strip once a day (DME) lancets [FreeStyle Lancets] 28 gauge misc See Rx Instructions .Route Qty: 100 2RF Rx Instructions: Use 1 lancet once a day oxycodone 5 mg tablet 5 mg PO BID PRN (Reason: pain) 28 Days Qty: 56 0RF Rx Instructions: Partial Fill upon patient request. mycophenolate sodium 180 mg tablet,delayed release (DR/EC) 540 mg PO BID Rx Instructions: 3 tabs at am and 2 tabs at pm Farxiga 10 mg tablet 10 mg PO cholecalciferol (vitamin D3) 25 mcg (1,000 unit) capsule 25 mcg PO DAILY 90 Days Qty: 90 1RF labetalol 200 mg tablet 200 mg PO BID 90 Days Qty: 180 1RF doxycycline monohydrate 100 mg capsule 100 mg PO BID 7 Days Qty: 14 0RF atorvastatin 40 mg tablet 40 mg PO BEDTIME tacrolimus 1 mg capsule 0 mg PO nifedipine 60 mg tablet extended release 24hr 60 mg PO DAILY lubiprostone [Amitiza] 24 mcg capsule 24 mcg PO BID Qty: 60 3RF <JANINE Darby - Last Filed: 09/08/22 12:16> Referrals: Quinn Mathias [Physician] - <JANINE Darby - Last Filed: 09/08/22 12:16>
[2022-09-08] MEDS: Erythromycin Base 0.5% Oph Oin 1 GM TUBE 1 CM EYE-LEFT (13:32)
[2022-09-08] MEDS: Fluorescein Sodium STRIP 1 STRIP EYE-LEFT (13:32)
[2022-09-08] MEDS: Tetracaine HCl/PF 0.5% Oph Sol 4 ML DROPS 3 DROP EYE-LEFT (13:32)
== END 2022-09-08 13:59 | disposition home or self-care (01) ==
PROVIDERS: Emergency Provider Emergency Medicine; PCP Internal Medicine
DX: H10.32 Unspecified acute conjunctivitis, left eye (principal); H53.8 Other visual disturbances; Z79.899 Other long term (current) drug therapy; Z87.891 Personal history of nicotine dependence
CPT/HCPCS: 99282; 99283

== ENCOUNTER 2022-09-16 08:42 | Day surgery (SDC) | payer OTHER, SELFPAY ==
[2022-06-25 12:20] VITALS: BMI 34.0
--- NOTE | 2022-09-15 14:10 | HO.ANESPROP2 ---
Documented by User: Margarita Salcedo NP 09/15/22 14:15 HPI - Anesthesia Eval Consult details Narrative: 57yo F for Colonoscopy hx renal transplant d/t polycystic kidney disease. Baseline creat 1.4-1.6 per 04/2022 renal office visit s/p EGD 12/2021 with [facility] Active Problems Active Problems: All Active Problems (Updated 06/25/22 @ 12:12 by Kary Ryan RN) URI (upper respiratory infection) (Acute) Hyperlipidemia LDL goal <70 (Acute) Irritable bowel syndrome with constipation (Acute) GERD (gastroesophageal reflux disease) (Acute) Hemorrhoids (Acute) Chronic idiopathic constipation (Acute) Pedal edema (Acute) UTI (urinary tract infection) (Acute) Rash (Acute) Left shoulder pain (Acute) Ecchymosis (Acute) Adult general medical exam (Acute) Diabetes mellitus (Acute) Right ankle pain (Acute) Left ankle pain (Acute) Fatigue (Acute) Hair loss (Acute) Back pain (Acute) Pancreatic lesion (Acute) Pneumonia due to COVID-19 virus (Acute) Essential hypertension (Acute) Kidney transplant recipient (Acute) Past Medical History Medical History Back pain Diabetes mellitus Essential hypertension Fatigue Hair loss Left ankle pain Pancreatic lesion Pneumonia due to COVID-19 virus Right ankle pain Family History Family History Father CVD (cardiovascular disease) Prostate cancer Mother No problems noted. Family history of problems with anesthesia: No Surgical History Surgical History AV fistula History of benign breast tumor History of esophagogastroduodenoscopy (EGD) History of foot surgery History of lipoma History of tubal ligation Hx of colonoscopy Kidney transplant recipient Kidney transplant status History of Problems with Anesthesia: No Social History Social History Household Members: Children Housing: Apartment Alcohol intake: never Patient Tobacco Use Status: Former Tobacco user Tobacco use type: Cigarette e-Cigarette/Vaping Use: Never Used Second Hand Smoke Exposure: No Advance Directives: No Advance Directives Information Provided: Yes service: No Current occupational status: unemployed Cognitive needs: No Hearing needs: No Vision needs: No Meds Allergies Allergy/AdvReac Type Severity Reaction Status Date / Time amlodipine AdvReac Intermediate leg edema Verified 09/08/22 10:54 morphine AdvReac Mild Rash Verified 09/08/22 10:54 Home Medications Medication Instructions Recorded Confirmed Last Taken Type mycophenolate sodium 180 mg 540 mg PO BID 06/20/20 09/11/22 Unknown History tablet,delayed release atorvastatin 40 mg tablet 40 mg PO BEDTIME 02/04/21 09/11/22 Unknown History nifedipine 60 mg tablet,extended 60 mg PO DAILY 05/04/22 09/11/22 Unknown History release 24 hr tacrolimus 1 mg capsule, 0 mg PO 05/04/22 08/06/22 Unknown History immediate-release dapagliflozin 10 mg tablet 10 mg PO 07/16/22 08/06/22 Unknown History ([facility]) Exam Exam Date and Time: September 15, 2022 1410 Height,Weight and Vital Signs: Height 5 ft 1 in Weight 81.647 kg Pertinent Lab Results Pertinent Lab Results: Laboratory Tests 03/23/22 07/16/22 08:40 09:04 WBC 6.6 Hgb 14.4 Hct 44.3 Plt Count 184 Sodium 145 Potassium 4.8 Chloride 109 H Carbon Dioxide 26 BUN 22 H Creatinine 1.57 H Assessment and Plan Assessment Anesthesia Assessment: Chart Reviewed Final Anesthetic Review Family History of Problems with Anesthesia: No History of Problems with Anesthesia: No Documented by User: Renate Peoples MD 09/16/22 09:15 PMFSH Past Medical History Medical History Back pain Diabetes mellitus Essential hypertension Fatigue Hair loss Left ankle pain Pancreatic lesion Pneumonia due to COVID-19 virus Right ankle pain Family History Family History Father CVD (cardiovascular disease) Prostate cancer Mother No problems noted. Surgical History Surgical History AV fistula History of benign breast tumor History of esophagogastroduodenoscopy (EGD) History of foot surgery History of lipoma History of tubal ligation Hx of colonoscopy Kidney transplant recipient Kidney transplant status Social History Social History Household Members: Children Housing: Apartment Alcohol intake: never Patient Tobacco Use Status: Former Tobacco user Tobacco use type: Cigarette e-Cigarette/Vaping Use: Never Used Second Hand Smoke Exposure: No Advance Directives: No Advance Directives Information Provided: Yes service: No Current occupational status: unemployed Cognitive needs: No Hearing needs: No Vision needs: No Meds Allergies Allergy/AdvReac Type Severity Reaction Status Date / Time amlodipine AdvReac Intermediate leg edema Verified 09/08/22 10:54 morphine AdvReac Mild Rash Verified 09/08/22 10:54 Home Medications Medication Instructions Recorded Confirmed Last Taken Type mycophenolate sodium 180 mg 540 mg PO BID 06/20/20 09/11/22 Unknown History tablet,delayed release atorvastatin 40 mg tablet 40 mg PO BEDTIME 02/04/21 09/11/22 Unknown History nifedipine 60 mg tablet,extended 60 mg PO DAILY 05/04/22 09/11/22 Unknown History release 24 hr tacrolimus 1 mg capsule, 0 mg PO 05/04/22 08/06/22 Unknown History immediate-release dapagliflozin 10 mg tablet 10 mg PO 07/16/22 08/06/22 Unknown History ([facility]) Exam Airway Mallampati Class: II TM Dist: >3cm Neck ROM: Full Heart: rrr Lungs: cta Assessment and Plan Assessment Anesthesia Assessment: Anesthesia Plan Discussed Final Anesthetic Review NPO: Yes ASA Class: III Final Preanesthetic Review: No Changes in Pt Med Stat, Meds/Allgs Chart Reviewed, Consent Obtained/Reviewed and Anes Risks/Benef Reviewed Patient Risk: Intermediate Procedure Risk: Low Anesthetic Plan Anesthetic Plan: MAC: Disposition: Standard PACU
[2022-09-16 09:17] VITALS: BP 132/62; PULSE 72; RESP 16; TEMP 36.2; O2SAT 95
[2022-09-16] MEDS: 0.9 % Sodium Chloride 1,000 ML 50 ML IVCONT (09:36)
[2022-09-16 09:41] LABS: Glucose, Whole Blood 143 mg/dL (60-115)
--- NOTE | 2022-09-16 09:44 | MHC.SHP ---
Pre-Procedural Eval Section A Date of Service: 09/16/22 Section B Chief Complaint: Change in bowel habit,rectal bleeding Relevant Family History (Specify if Yes): No Relevant Social History: None Present Medications: see Short Stay Collaborative assessment Medical History: Significant History (Back pain Diabetes mellitus Essential hypertension Fatigue Hair loss Left ankle pain Pancreatic lesion Pneumonia due to COVID-19 virus Right ankle pain) History of Previous Operations: Relevant previous surgery/procedure and date(s) (AV fistula History of benign breast tumor History of esophagogastroduodenoscopy (EGD) History of foot surgery History of lipoma History of tubal ligation Hx of colonoscopy Kidney transplant recipient Kidney transplant status) Allergies: Allergies Allergy/AdvReac Type Severity Reaction Status Date / Time amlodipine AdvReac Intermediate leg edema Verified 09/08/22 10:54 morphine AdvReac Mild Rash Verified 09/08/22 10:54 Review of Systems Sugical H&P ROS: Negative: Constitution, Cardiovascular, Respiratory, Neurological, Psychiatric, Hem-Onc, Allergic/Immunologic, Gastrointestinal, Genitourinary, Musculoskeletal, Integumentary, Endocrine and Eyes/Ears/Nose/Throat Exam Surgical H&P Exam: Normal: HEENT, Normal: Heart, Normal: Lungs, Normal: Extremities, Normal: Abdomen, Normal: Skin and Normal: Neurological Plan Diagnosis/Plan: Unchanged I have reviewed the history and physical and performed a pertinent physical examination on my patient. No changes have occurred unless specified. Time Spent With Patient Time: Total time managing care of this patient today ____ minutes.
--- NOTE | 2022-09-16 10:30 | W.PM.OPN ---
Operative Note Operative Note Date of Service: 09/16/22 Narrative: Operative Information Procedure Description: Colonoscopy Indication: altered bowel habit, rectal bleeding Anesthesia: MAC COLONOSCOPY Instrument: Olympus variable stiffness pediatric scope 190L Colonoscopy Monitoring: Vital signs and clinical assessment, continuous EKG monitoring, Pulse oximetry, Carbon Dioxide monitoring and blood pressure monitoring were done throughout the procedure. Colon withdrawal time was 12 minutes. Procedure: The patient was placed in the left lateral decubitis position and pre-procedure medications were administered. After a digital rectal examination of the ano-rectum, the video colonoscope was inserted into the rectum and advanced through the colon to the cecum/TI. The colonoscope was slowly withdrawn in a retrograde panoramic fashion and the colon mucosa was carefully examined including a retroflexed view of the rectum. Findings and interventions are described below. Procedure Difficulty: moderate due to tortuous colon Findings: Terminal Ileum-normal, random bx taken Random colon bx taken Cecum: 3-4 mm sessile polyp removed with cold forceps Ascending Colon: 6-8 mm sessile polyp removed with cold snare Transverse Colon -normal Descending Colon: 4-7 mm sessile polyp removed with cold snare, not retrieved Sigmoid Colon: normal Rectum: Retroflexion with small protuberant internal hemorrhoids, grade I Anorectum - normal Colon preparation: Zimmerman Bowel Preparation Scale Right colon; 2 Transverse colon: 2 Left colon; 2 (0 = Unprepared colon segment with mucosa not seen due to solid stool that cannot be cleared. 1 = Portion of mucosa of the colon segment seen, but other areas of the colon segment not well seen due to staining, residual stool and/or opaque liquid. 2 = Minor amount of residual staining, small fragments of stool and/or opaque liquid, but mucosa of colon segment seen well. 3 = Entire mucosa of colon segment seen well with no residual staining, small fragments of stool or opaque liquid) Impression and Post Procedure Diagnosis: polyps internal hemorrhoids Plan: High fiber diet leaflet Avoid straining at stool, epsom salts and sitz bath, anusol supps or cream Repeat Colonoscopy in 3-5 years due to polyps or earlier if clinically indicated Her bleeding is probably from hemorrhoids, and the tortuous colon maybe responsible for her bowel habits, fiber should help with healthy fluid intake Above findings were reviewed with the patient and relevant handouts were provided if indicated.
[2022-09-16 10:40] VITALS: BP 108/54; PULSE 60; RESP 20; TEMP 37.4; O2SAT 97
[2022-09-16 10:55] VITALS: BP 112/59; PULSE 68; RESP 18; TEMP 36.6; O2SAT 98
== END 2022-09-16 11:20 | disposition home or self-care (01) ==
PROVIDERS: PCP Internal Medicine; Visit Provider Internal Medicine Gastroenterology
PROC: 0DJD8ZZ Inspection of Lower Intestinal Tract, Via Natural or Artificial Opening Endoscopic (ICD-10-PCS; CPT 45378; principal; 2022-09-16 10:20)
DX: R19.4 Change in bowel habit (principal); K62.5 Hemorrhage of anus and rectum; D12.0 Benign neoplasm of cecum; K63.5 Polyp of colon; K46.0 Unspecified abdominal hernia with obstruction, without gangrene; E11.9 Type 2 diabetes mellitus without complications; I10 Essential (primary) hypertension; R53.83 Other fatigue; K86.9 Disease of pancreas, unspecified; L65.9 Nonscarring hair loss, unspecified; Z94.0 Kidney transplant status; Z79.899 Other long term (current) drug therapy; Z88.8 Allergy status to other drugs, medicaments and biological substances; Z86.16 Personal history of COVID-19; Z87.891 Personal history of nicotine dependence
CPT/HCPCS: 45385; 45380; 82947; 88300; 88305

== ENCOUNTER 2022-09-28 10:53 | Outpatient (REF) | payer OTHER, SELFPAY ==
[2022-09-29 15:28] LABS: H Pylori Breath Test Negative (Negative)
== END 2022-09-28 10:54 | disposition home or self-care (01) ==
LOC: HO.LNP 10:53
PROVIDERS: PCP Internal Medicine; Visit Provider Internal Medicine Gastroenterology
DX: Z11.2 Encounter for screening for other bacterial diseases (principal); R10.9 Unspecified abdominal pain; K59.00 Constipation, unspecified
CPT/HCPCS: 83013; 99212

== ENCOUNTER 2022-12-10 12:36 | Outpatient (AMB) | payer OTHER, SELFPAY ==
[2022-12-10 12:50] VITALS: BP 110/80; BMI 32.5
--- NOTE | 2022-12-10 12:50 | A.OFFPC_ITS ---
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 Accompanied by: Self / Same As Patient Allergies amlodipine Adverse Reaction (Intermediate, Verified 12/10/22 13:07) leg edema morphine Adverse Reaction (Mild, Verified 12/10/22 13:07) Rash Medication List - Last Reconciled 12/10/22 by Jessica Dietz MD atorvastatin 40 mg PO BEDTIME blood sugar diagnostic (FreeStyle Lite Strips) Use 1 test strip once a day blood-glucose meter (FreeStyle Lite Meter kit) As directed cholecalciferol (vitamin D3) 25 mcg PO DAILY 90 days dapagliflozin propanediol (Farxiga) 10 mg PO doxycycline monohydrate 100 mg PO BID 7 days erythromycin 0.5 inches ophthalmic (eye) TID 5 days imiquimod 5% 1 appl topical 5XW labetalol 200 mg PO BID 90 days lancets (FreeStyle Lancets) Use 1 lancet once a day lubiprostone (Amitiza) 24 mcg PO BID mycophenolate sodium 540 mg PO BID nifedipine ER 60 mg PO DAILY 90 days oxycodone 5 mg PO BID PRN 28 days tacrolimus 0 mg PO Tobacco use date assessed: 07/16/22 Dental Screening Dental Screen Date: 12/10/22 Did you have a dental visit in the last 12 months?: Yes Did you have a dental problem in the last 6 months where you did not have access to dental care?: No Was dental information given to patient?: Patient has dentist HPI HPI Comments History of Present Illness Details This is a 57-year-old female with diabetes mellitus type 2, hypertension, hyperlipidemia and history of kidney transplant that comes today for follow-up on her conditions. A1c within goal. Blood pressure stable. Lipid panel will be order and her LDL goal should be less than 70. On medications for her kidney transplant and tolerating it well. Complains of chronic low back pain relieved by opiates and is aware that this medication is as needed. Side effects such as addiction, constipation, respiratory depression and were discussed. [facility] Medical History Back pain Diabetes mellitus Essential hypertension Fatigue Hair loss Left ankle pain Pancreatic lesion Pneumonia due to COVID-19 virus Right ankle pain Surgical History AV fistula History of benign breast tumor History of esophagogastroduodenoscopy (EGD) History of foot surgery History of lipoma History of tubal ligation Hx of colonoscopy Kidney transplant recipient Kidney transplant status Family History Father CVD (cardiovascular disease) Prostate cancer Mother No problems noted. Social History Household Members: Children Housing: Apartment Alcohol intake: never Patient Tobacco Use Status: Former Tobacco user Tobacco use type: Cigarette e-Cigarette/Vaping Use: Never Used Second Hand Smoke Exposure: No service: No Current occupational status: unemployed Cognitive needs: No Hearing needs: No Vision needs: No Questionnaire Thrive Questionnaire Date Thrive assessed: 07/16/22 JONNIE-7 AMB Questionnaire JONNIE-7 Date JONNIE - 7 assessed: 07/16/22 Source: Developed by Drs. Tereso Jones, Marilyn Cedeno, Homer Huston and colleagues, with an educational catrina from [employer]. Review of Systems Const All systems reviewed & are unremarkable except as noted in HPI and below Eyes Reports no additional complaints, Denies change in vision and Denies other visual disturbances Card Denies chest pain at rest, Denies chest pain with activity, Denies edema, Denies irregular heart rhythm, Denies claudication, Denies dyspnea, Denies dyspnea on exertion, Denies orthopnea, Denies paroxysmal nocturnal dyspnea and Denies slow heart rate Resp Denies cough, Denies dyspnea and Denies dyspnea on exertion GI Denies abdominal pain, Denies change in bowel habits, Denies excessive flatus, Denies nausea and Denies vomiting Denies urinary incontinence, Denies urinary hesitancy and Denies urinary urgency Musc Denies abnormal gait, Denies atrophy, Denies deformity and Denies limited range of motion Skin/Breast Denies bleeding lesions, Denies changing lesions and Denies rash Neuro Denies abnormal gait and Denies lack of coordination Physical exam (Primary Care) Vital Signs: Last Vital Signs BP 110/80 12/10/22 12:50 BMI result Body Mass Index 32.5 Tobacco/Smoking Status: Tobacco use Status Tobacco use date assessed 07/16/22 12/10/22 12:57 Patient Tobacco Use Status Former Tobacco user 12/10/22 12:57 Tobacco use type Cigarette 12/10/22 12:57 e-Cigarette/Vaping Use Never Used 12/10/22 12:57 Thrive Assessment: Date of Thrive Assessment Date Thrive assessed 07/16/22 12/10/22 12:57 Eyes General: appearance normal, both eyes and all related structures Eyelids: Yes eyelids normal Conjunctivae: conjunctivae normal Neck Neck: Yes normal visual inspection and Yes supple Resp Effort & Inspection: normal respiratory effort Auscultation: clear to auscultation bilaterally Cardio Jugular venous distension: no JVD Rate: regular rate Rhythm: regular rhythm Heart sounds: S1 normal heart sound present and S2 normal heart sound present Extrem General: Yes full ROM Results AMB Hemoglobin A1c AMB Hemoglobin A1c 6.5 % Last Edit by RENEA Cooper on 12/10/22 12:5 7 Results Reviewed Results Reviewed: Laboratory Last Values Hgb A1c (Clinic) 6.5 % (4.0-6.0) H 12/10/22 12:39 Assessment and Plan Assessment & Plan (1) Diabetes mellitus: Code(s): E11.9 - Type 2 diabetes mellitus without complications Plan: Continue Farxiga. A1c goal is equal or less than 7%. (2) Essential hypertension: Code(s): I10 - Essential (primary) hypertension Plan: Continue nifedipine and labetalol. Blood pressure goal is equal or less than 130/80. (3) Kidney transplant recipient: Code(s): Z94.0 - Kidney transplant status Plan: Continue tacrolimus and mycophenolate. Follow-up with nephrology. (4) Hyperlipidemia LDL goal <70: Code(s): E78.5 - Hyperlipidemia, unspecified Plan: Continue statins. Repeat lipid panel. LDL goal should be less than 70. Orders: Orders Comprehensive [place]. Panel Fast Today E11.9 - Type 2 diabetes mellitus without complications Lipid Panel Today E78.5 - Hyperlipidemia, unspecified Vitamin D 25-OH Total Today E55.9 - Vitamin D deficiency, unspecified Microalbumin, Random (w Creat) Today E11.9 - Type 2 diabetes mellitus without complications AMB Hemoglobin A1c Today E11.9 - Type 2 diabetes mellitus without complications Coding Level of Care Code Est Pt Level 4 (84449) Diagnoses Diabetes mellitus E11.9 Essential hypertension I10 Kidney transplant recipient Z94.0 Hyperlipidemia LDL goal <70 E78.5 Time Spent (min) 22
== END 2022-12-10 13:25 | disposition home or self-care (01) ==
PROVIDERS: PCP Internal Medicine; Visit Provider Internal Medicine
DX: E11.9 Type 2 diabetes mellitus without complications (principal); I10 Essential (primary) hypertension; Z94.0 Kidney transplant status; E78.5 Hyperlipidemia, unspecified
CPT/HCPCS: 83036; 99214

== ENCOUNTER 2022-12-15 08:36 | Outpatient (REF) | payer OTHER, SELFPAY ==
[2022-12-15 09:49] LABS: Alanine Aminotransferase 15 U/L (0-31); Albumin Level 4.4 g/dL (3.5-5.0); Alkaline Phosphatase 89 U/L (39-117); Anion Gap 12 (12-20); Aspartate Amino Transferase 16 U/L (5-31); Bilirubin Total 0.5 mg/dL (0.0-1.0); Blood Urea Nitrogen 27 mg/dL (9-16); Calcium 10.2 mg/dL (8.4-10.2); Carbon Dioxide 27 mmol/L (22-29); Chloride 106 mmol/L (96-108); Cholesterol 160 mg/dL; Estimated Glomerular Filt Rate 36; Glucose Fasting 133 mg/dL (60-99); HDL Cholesterol 37 mg/dL; LDL Cholesterol Calculated 81 mg/dl; Potassium 4.3 mmol/L (3.3-5.1); Sodium 141 mmol/L (135-145); Total Protein 7.4 g/dL (6.5-8.0); Triglycerides 210 mg/dL
[2022-12-15 09:55] LABS: Creatinine Urine 88.68 mg/dL; Microalbum/Creatinine Ratio Ur 47.3 ug/mg cr
[2022-12-15 10:03] LABS: Vitamin D 25-OH Total 40.2 ng/mL (>30)
== END 2022-12-15 08:37 | disposition home or self-care (01) ==
LOC: HO.LAB 08:36
PROVIDERS: PCP Internal Medicine; Visit Provider Internal Medicine
DX: E11.9 Type 2 diabetes mellitus without complications (principal); E55.9 Vitamin D deficiency, unspecified; E78.5 Hyperlipidemia, unspecified
CPT/HCPCS: 36415; 80053; 80061; 82043; 82306

== ENCOUNTER 2023-04-02 10:55 | Outpatient (AMB) | payer OTHER, SELFPAY ==
--- NOTE | 2023-04-02 11:04 | MHC.OFFVIS ---
Intake Vital Signs 04/02/23 11:06 Height 5 ft 1 in Weight 176 lb 5.917 oz BMI 33.3 BP 127/59 L Blood Pressure Location Lt brachial Position Sitting Pulse 79 Intake Visit Reasons: Follow up 6 months Intake Note: Ginette presents in the office as a follow up for 6 months. CC:She was given antibiotics because she was having bronchitis and an ear infection. She is having acid in her stomach. 3 days ago her stomach hurt so much she was vomiting. She would like to be sent some tests to make sure that she does not have a bacteria. She states that she has been also urinating a lot recently. She had some bleeding when she had a BM but she states it was because she was having constipation. 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: Had been seeing August Lambert issues: 1/ IBS-C 2/ GERD 3/constipation--tried linaclotide, amitiza, 2/2 to slow transit, opiates, CCB, and enlarged kidneys, possible pelvic flood dysfucntion 4/ suspected pancreas lesions colonoscopy 2017---diverticulosis, no other lesions I had seen her for left sided abdominal pain and ongoing chronic constipation referred to [facility] for ARM consideration given to gen on days she is taking opiates she has to manually disimpact, can be painful to pass she is on oxycodone for back pain, takes 2-3 times/week the abx I gave her did reduce her bloating and gas US 12/18--polycystic kidneys, hepatic cysts, ovarian cyst 4.3 cm EGD for epigastric pain: 12/2021 gastritis duodenitis esophagitis path: pos H pylori Colonoscopy: 08/2022--- TA, random colo bx neg h pylori breath test was neg on f/u INTERIM: she has ongoing issues with constipation she noted small amount of blood when straining once she had been having nausea and vomiting x 1 time, not now she has been taking lubiprostone prn and it works when she uses it EXAM: GENERAL: The patient is well developed and nontoxic. VITAL SIGNS:see workflow HEENT: Nonicteric sclerae, PERRLA, EOMI. Oropharynx clear. Moist mucous membranes. Conjunctivae appear well perfused. No thyroid mass. CHEST: Chest wall is nontender. HEART: Regular rate and rhythm without murmurs. LUNGS: Clear to auscultation bilaterally. ABDOMEN: Soft, positive bowel sounds, mild tender epigastrium and around transplanted kidney, kidney palpable, no organomegaly.no flank tenderness SKIN: No rash, no excessive bruising, petechiae, or purpura. NEUROLOGIC: Cranial nerves II-XII intact without motor/sensory deficit. a/P; 1/ constipation--on amitiza but not been taking scheduled only prn --also maybe SE of her other meds farhana CCB 2/ H pylori gastritis, cured PLAN: 1/ advised to try amitiza scheduled, M,W, F prevent catch up in term of her constipation 2/ if ongoing sx thenm maybe repeat EGD or GES? ? 3/ check nutrient levels PFSH Medical History Diabetes mellitus Right ankle pain Left ankle pain Fatigue Hair loss Back pain Pancreatic lesion Pneumonia due to COVID-19 virus Essential hypertension Surgical History History of esophagogastroduodenoscopy (EGD) Hx of colonoscopy Kidney transplant recipient AV fistula Kidney transplant status History of tubal ligation History of foot surgery History of lipoma History of benign breast tumor Family History Father CVD (cardiovascular disease) Prostate cancer Mother No problems noted. Social History Household Members: Children Housing: Apartment Alcohol intake: never Patient Tobacco Use Status: Former Tobacco user Tobacco use type: Cigarette e-Cigarette/Vaping Use: Never Used Second Hand Smoke Exposure: No service: No Current occupational status: unemployed Cognitive needs: No Hearing needs: No Vision needs: No Physical Exam Vital Signs: Last Vital Signs Pulse 79 04/02/23 11:06 BP 127/59 L 04/02/23 11:06 BMI result Body Mass Index 33.3 Assessment & Plan Assessment & Plan (1) Chronic idiopathic constipation: Code(s): K59.04 - Chronic idiopathic constipation (2) Malnutrition: Code(s): E46 - Unspecified protein-calorie malnutrition Orders: Orders Complete Blood Count Auto Diff Today E46 - Unspecified protein-calorie malnutrition, K59.04 - Chronic idiopathic constipation Vitamin B1 Today E46 - Unspecified protein-calorie malnutrition, K59.04 - Chronic idiopathic constipation Vitamin A Today E46 - Unspecified protein-calorie malnutrition, K59.04 - Chronic idiopathic constipation Vitamin B12 and Folate Today E46 - Unspecified protein-calorie malnutrition, K59.04 - Chronic idiopathic constipation Vitamin B3 (Niacin) Today E46 - Unspecified protein-calorie malnutrition, K59.04 - Chronic idiopathic constipation Vitamin B6 Today E46 - Unspecified protein-calorie malnutrition, K59.04 - Chronic idiopathic constipation Vitamin D 25-OH Total Today E46 - Unspecified protein-calorie malnutrition, K59.04 - Chronic idiopathic constipation Vitamin K1 Today E46 - Unspecified protein-calorie malnutrition, K59.04 - Chronic idiopathic constipation Comprehensive Met. Panel Today E46 - Unspecified protein-calorie malnutrition, K59.04 - Chronic idiopathic constipation, K75.81 - Nonalcoholic steatohepatitis (LEIGH) Vitamin B5 (Pantothenic Acid) Today E46 - Unspecified protein-calorie malnutrition, K59.04 - Chronic idiopathic constipation Vitamin C Today E46 - Unspecified protein-calorie malnutrition, K59.04 - Chronic idiopathic constipation Vitamin E Today E46 - Unspecified protein-calorie malnutrition, K59.04 - Chronic idiopathic constipation Zinc Today E46 - Unspecified protein-calorie malnutrition, K59.04 - Chronic idiopathic constipation Ferritin Today E46 - Unspecified protein-calorie malnutrition, K59.04 - Chronic idiopathic constipation Coding Level of Care Code Est Pt Level 3 (32659) Diagnoses Chronic idiopathic constipation K59.04 Malnutrition E46
[2023-04-02 11:06] VITALS: BP 127/59; PULSE 79; BMI 33.3
== END 2023-04-02 11:45 | disposition home or self-care (01) ==
PROVIDERS: Visit Provider Internal Medicine Gastroenterology
DX: K59.04 Chronic idiopathic constipation (principal); E46 Unspecified protein-calorie malnutrition
CPT/HCPCS: 99213

== ENCOUNTER 2023-04-02 10:55 | Outpatient (REF) | payer OTHER, SELFPAY ==
[2023-04-02 12:26] LABS: MANUAL DIFF FLAG NO
[2023-04-02 12:38] LABS: Basophils Percent Auto 0.5 % (0-2); Eosinophils Absolute Auto 0.5 X10*3/uL (0.0-0.4); Eosinophils Percent Auto 8.4 % (0-4); Hematocrit 40.6 % (37.0-47.0); Hemoglobin 13.4 g/dl (12.0-16.0); Imm Gran Abs Auto 0.01 X10*3/uL (0.00-0.03); Imm Gran Pct Auto 0.2 % (0.0-0.4); Lymphocytes Percent Auto 17.2 % (20-40); Mean Corpuscular Volume 84.8 fL (80.0-98.0); Mean Platelet Volume 10.5 fL (9.4-12.3); Monocytes Absolute Auto 0.4 X10*3/uL (0.1-1.2); Monocytes Percent Auto 6.6 % (2-11); Neutrophils Percent Auto 67.1 % (45-73); Platelet Count 195 X10*3/uL (160-400); Red Blood Count 4.79 X10*6/uL (4.20-5.50); Red Cell Distribution Width 12.9 % (11.0-16.0); White Blood Count 5.9 X10*3/uL (4.8-10.8)
[2023-04-02 13:13] LABS: Alanine Aminotransferase 13 U/L (0-31); Albumin Level 4.2 g/dL (3.5-5.0); Alkaline Phosphatase 86 U/L (39-117); Anion Gap 13 (12-20); Aspartate Amino Transferase 17 U/L (5-31); Bilirubin Total 0.3 mg/dL (0.0-1.0); Blood Urea Nitrogen 29 mg/dL (9-16); Calcium 9.9 mg/dL (8.4-10.2); Carbon Dioxide 24 mmol/L (22-29); Chloride 108 mmol/L (96-108); Estimated Glomerular Filt Rate 47; Glucose Random 118 mg/dL (60-115); Potassium 4.2 mmol/L (3.3-5.1); Sodium 141 mmol/L (135-145); Total Protein 7.2 g/dL (6.5-8.0)
[2023-04-02 13:27] LABS: Ferritin 125 ng/mL (10-250)
[2023-04-02 13:41] LABS: Folate 10.9 ng/mL (> or = 4.0); Vitamin B12 600 pg/mL (200-900)
[2023-04-06 16:42] LABS: Alpha-Tocopherol 17.7 mg/L (5.7-19.9); Beta-Gamma Tocopherol 1.9 mg/L (<=4.3)
[2023-04-07 11:14] LABS: Vitamin A 81 mcg/dL (38-98)
[2023-04-07 13:08] LABS: Zinc 68 mcg/dL (60-130)
[2023-04-07 13:43] LABS: Vitamin B6 7.1 ng/mL (2.1-21.7)
[2023-04-07 17:49] LABS: Vitamin K1 1150 pg/mL (130-1500)
[2023-04-08 02:08] LABS: Vitamin B5 (Pantothenic Acid) 63 ng/mL (<275)
[2023-04-08 17:23] LABS: Vitamin C 0.6 mg/dL (0.3-2.7)
[2023-04-08 17:38] LABS: Vitamin B1 20 nmol/L (8-30)
[2023-04-08 20:38] LABS: Nicotinamide 28 ng/mL; Vit B3 - Nicotinic Acid <20 ng/mL
== END 2023-04-02 10:56 | disposition home or self-care (01) ==
LOC: HO.LAB 10:55
PROVIDERS: PCP Internal Medicine; Visit Provider Internal Medicine Gastroenterology
DX: K59.04 Chronic idiopathic constipation (principal); K75.81 Nonalcoholic steatohepatitis (NASH); E46 Unspecified protein-calorie malnutrition; J40 Bronchitis, not specified as acute or chronic
CPT/HCPCS: 36415; 80053; 82180; 82607; 82728; 82746; 84207; 84425; 84446; 84590; 84591; 84597; 84630; 85025; 99212

== ENCOUNTER 2023-04-02 18:19 | Emergency (ER) | payer OTHER, SELFPAY ==
--- NOTE | ~2023-04-02 | US_ITS ---
EXAMINATION: ULTRASOUND PELVIC, COMPLETE CLINICAL INFORMATION: Pelvic pain. History of fibroids. COMPARISON: Pelvic ultrasound October 19, 2019 TECHNIQUE: Transvaginal: Used to better visualize pelvic structures Transabdominal: Not adequate for visualization Spectral Doppler and color Doppler exam was utilized. LMP: Postmenopausal FINDINGS: UTERUS: Unremarkable. Uterus measures 6.3 x 3 x 4 cm. The endometrial thickness 0.2 cm. ADNEXA: Ovarian vascularity:Doppler demonstrates both arterial and venous vascular flow in the right and left ovary. No evidence of ovarian torsion. Right Ovary: Anechoic follicle/cyst measuring 1.4 cm. No follow-up imaging recommended. Right ovary measures 2.2 x 1.9 x 2 cm. Volume 4.4 mL Left Ovary: Left ovary measures 2.2 x 0.8 x 0.9 cm. Volume 0.8 mL Cul-de-sac: No Fluid US/US pelvic and transvaginal IMPRESSION: Normal ultrasound of the pelvis.
--- NOTE | 2023-04-02 18:57 | ED.GENADULT ---
HPI - General Adult General Chief complaint: Urogenital-Female Stated complaint: kidney transplant, bladder discomfort Time Seen by Provider: 04/02/23 22:28 Source: patient Mode of arrival: ambulatory Limitations: no limitations History of Present Illness HPI narrative: Patient is post kidney transplant 2017, ovarian cyst in 2020 on doxycycline for bronchitis since 03/25 comes here for lower abdominal discomfort with frequency for last 2-3 weeks patient does urinate a lot not on any diuretic no dysuria or incontinence feels lower abdominal discomfort no fever or chills does have a dry cough Related Data Home Medications Medication Instructions Recorded Confirmed mycophenolate sodium 180 mg 540 mg PO BID 06/20/20 12/10/22 tablet,delayed release atorvastatin 40 mg tablet 40 mg PO BEDTIME 02/04/21 12/10/22 tacrolimus 1 mg capsule, 0 mg PO 05/04/22 12/10/22 immediate-release dapagliflozin propanediol 10 mg 10 mg PO 07/16/22 12/10/22 tablet (Farxiga) imiquimod 5 % topical cream packet 1 appl topical 5XW 12/10/22 12/10/22 albuterol sulfate 90 mcg/actuation inhalation 04/02/23 aerosol inhaler (Ventolin HFA) fluticasone propionate 50 1 spray intranasal BID 04/02/23 mcg/actuation nasal spray,suspension Previous Rx's Medication Instructions Recorded blood-glucose meter (FreeStyle #1 ea 09/10/21 Lite Meter kit) blood sugar diagnostic (FreeStyle #100 ea 03/09/22 Lite Strips) lancets 28 gauge (FreeStyle #100 ea 03/09/22 Lancets) cholecalciferol (vitamin D3) 25 25 mcg PO DAILY 90 days #90 caps 07/16/22 mcg (1,000 unit) capsule erythromycin 5 mg/gram (0.5 %) eye 0.5 inch ophthalmic (eye) TID 5 09/08/22 ointment days #3.5 grams nifedipine 60 mg tablet,extended 60 mg PO DAILY 90 days #90 tabs 10/16/22 release 24 hr lubiprostone 24 mcg capsule 24 mcg PO BID #60 caps 12/15/22 (Amitiza) labetalol 200 mg tablet 200 mg PO BID 90 days #180 tabs 01/07/23 oxycodone 5 mg tablet 5 mg PO BID PRN pain 28 days #56 02/08/23 tabs phenazopyridine 200 mg tablet 200 mg PO TID 2 days #6 tabs 04/03/23 (Pyridium) Allergies Allergy/AdvReac Type Severity Reaction Status Date / Time amlodipine AdvReac Intermediate leg edema Verified 04/02/23 11:06 morphine AdvReac Mild Rash Verified 04/02/23 11:06 Review of Systems Review of Systems: Yes all other systems are reviewed and are negative [facility] Past Medical History Medical History Diabetes mellitus Right ankle pain Left ankle pain Fatigue Hair loss Back pain Pancreatic lesion Pneumonia due to COVID-19 virus Essential hypertension Surgical History History of esophagogastroduodenoscopy (EGD) Hx of colonoscopy Kidney transplant recipient AV fistula Kidney transplant status History of tubal ligation History of foot surgery History of lipoma History of benign breast tumor Family History Family History Father CVD (cardiovascular disease) Prostate cancer Mother No problems noted. Social History Social History Household Members: Children Housing: Apartment Alcohol intake: never Patient Tobacco Use Status: Former Tobacco user Tobacco use type: Cigarette Smoked in Last 30 Days: No e-Cigarette/Vaping Use: Never Used Second Hand Smoke Exposure: No Use of substances other than those prescribed or required for medical reasons: No Advance Directives: No Advance Directives Information Provided: Yes Patient : No service: No Current occupational status: unemployed Cognitive needs: No Hearing needs: No Vision needs: No Physical Exam ED Vital Signs: Vital Signs - 24 hr 04/02/23 18:58 04/02/23 21:48 Temperature 97.6 F 98.0 F Pulse Rate 72 75 Respiratory Rate 17 16 Blood Pressure 144/69 H 132/59 L Pulse Oximetry 97 98 Oxygen Delivery Method Room Air Room Air BMI result Body Mass Index 33.1 Appearance: Alert. Oriented X3. No acute distress. ENT: Pharynx normal. Oral Mucosa moist Neck: Normal inspection. Neck supple. CVS: Normal heart rate and rhythm. Pulses normal. Respiratory: No respiratory distress. Equal air entry bilateral, no wheezing/rales/rhonchi Abdomen: Soft mild suprapubic discomfort Bowel sounds are present, no mass palpable, no CVA tenderness Skin: Skin warm and dry. Normal skin color. Normal skin turgor. Extremities: No lower extremity edema. No calf tenderness Neuro: Oriented X 3. Course Course Course Narrative: This is a rapid medical exam: Additional HPI, ROS, PE not included below will be deferred to primary provider. Patient is a 57-year-old Ukrainian-speaking female with history of DM, HTN, pancreatic lesion, kidney transplant 6 years ago presenting to the ED with 3 weeks of urinary frequency and lower abdominal bloating. Currently taking doxycycline for bronchitis. Reports lower back pain radiating to her lower abdomen as well as nausea and vomiting today. Denies fevers or diarrhea. Denies hematuria. Plan: UA, basic labs as patient saw GI today for a follow up appointment and had labs drawn at that time Medications Administered Discontinued Medications Generic Name Dose Route Start Last Admin Trade Name Freq PRN Reason Stop Dose Admin Phenazopyridine HCl 200 mg 04/03/23 00:24 04/03/23 01:18 Phenazopyridine Hcl 200 Mg Tablet PO 04/03/23 00:25 200 mg ONCE ONE Administration Medical Decision Making Medical Decision Making [facility] Narrative: Patient has suprapubic pain likely dysuria as it is ultrasound was negative for acute Differential Diagnosis Differential Diagnoses: The differential diagnosis associated with the presentation includes UTI/ovarian cyst/diverticular Admission/Observation Consideration of admission/observation: Escalation of care including admission/observation considered Lab Data [facility] Lab Attestation statement: I reviewed the patient's lab results. 04/02/23 20:05 04/02/23 20:05 Labs: Lab Results 04/02/23 04/02/23 Range/Units 19:59 20:05 WBC 6.9 (4.8-10.8) X10*3/uL RBC 4.96 (4.20-5.50) X10*6/uL Hgb 14.0 (12.0-16.0) g/dl Hct 42.0 (37.0-47.0) % MCV 84.7 (80.0-98.0) fL MCH 28.2 (27.0-33.0) pg MCHC 33.3 (31.0-35.0) g/dl RDW 13.0 (11.0-16.0) % Plt Count 197 (160-400) X10*3/uL MPV 10.2 (9.4-12.3) fL Immature Gran % (Auto) 0.1 (0.0-0.4) % Neut % (Auto) 61.8 (45-73) % Lymph % (Auto) 21.9 (20-40) % [place] % (Auto) 5.7 (2-11) % Eos % (Auto) 9.9 H (0-4) % Baso % (Auto) 0.6 (0-2) % Lymph # (Auto) 1.5 (1.2-4.9) X10*3/uL [place] # (Auto) 0.4 (0.1-1.2) X10*3/uL Eos # (Auto) 0.7 H (0.0-0.4) X10*3/uL Baso # (Auto) 0.0 (0.0-0.2) X10*3/uL Abs Immat Gran (auto) 0.01 (0.00-0.03) X10*3/uL Absolute Neuts (auto) 4.2 (2.0-8.3) x10*3/uL Absolute Nucleated RBC 0.000 (0.0-0.012) X10*3/uL Nucleated RBC % (auto) 0.0 (0.0-0.2) /100WBC Sodium 140 (135-145) mmol/L Potassium 4.1 (3.3-5.1) mmol/L Chloride 108 (96-108) mmol/L Carbon Dioxide 22 (22-29) mmol/L Anion Gap 14 (12-20) BUN 30 H (9-16) mg/dL Creatinine 1.08 (0.5-1.4) mg/dL Estim Creat Clear Calc 55.4 Estimated GFR 52 Random Glucose 143 H (60-115) mg/dL Calcium 10.0 (8.4-10.2) mg/dL Total Bilirubin 0.3 (0.0-1.0) mg/dL AST 15 (5-31) U/L ALT 14 (0-31) U/L Alkaline Phosphatase 85 (39-117) U/L Total Protein 7.5 (6.5-8.0) g/dL Albumin 4.3 (3.5-5.0) g/dL Urine Color Yellow Urine Appearance Clear Urine pH 5.5 (5.0-9.0) Ur Specific [place] 1.020 (1.005-1.025) Urine Protein Negative (Neg-Trace) mg/dL Urine Glucose (UA) >=1000 H (Negative) mg/dL Urine Ketones Negative (Negative) mg/dL Urine Blood Trace H (Negative) Urine Nitrite Negative (Negative) Ur Leukocyte Esterase Negative (Negative) Urine RBC 0-2 (0-2) /HPF Urine WBC 0-5 (0-5) /HPF Ur Squamous Epith Cells 0-2 (0-2) /HPF Urine Bacteria None Seen (None Seen) Hyaline Casts 0-2 (0-2) /LPF Independent Interpretation I performed an independent interpretation of an: Ultrasound Radiology Impression Discussion of test interpretation with radiology: I have reviewed the radiologist's reading. Discharge Plan Discharge Clinical Impression: Pelvic pain, Dysuria Patient Disposition: Home, Self-Care Instructions: Dysuria (ED), Pelvic Pain (ED) Additional Instructions: Continue medications Pain medication as prescribed for bladder spasm Follow with PCP Your ultrasound did not show any significant abnormality Prescriptions: New phenazopyridine [Pyridium] 200 mg tablet 200 mg PO TID 2 Days Qty: 6 0RF No Action (DME) blood-glucose meter [FreeStyle Lite Meter] Kit See Rx Instructions .Route Qty: 1 0RF Rx Instructions: As directed (DME) FreeStyle Lite Strips Strip See Rx Instructions .Route Qty: 100 2RF Rx Instructions: Use 1 test strip once a day (DME) lancets [FreeStyle Lancets] 28 gauge misc See Rx Instructions .Route Qty: 100 2RF Rx Instructions: Use 1 lancet once a day nifedipine 60 mg tablet extended release 24hr 60 mg PO DAILY 90 Days Qty: 90 1RF lubiprostone [Amitiza] 24 mcg capsule 24 mcg PO BID Qty: 60 3RF labetalol 200 mg tablet 200 mg PO BID 90 Days Qty: 180 1RF oxycodone 5 mg tablet 5 mg PO BID PRN (Reason: pain) 28 Days Qty: 56 0RF Rx Instructions: Partial Fill upon patient request. erythromycin 5 mg/gram (0.5 %) ointment 0.5 inch ophthalmic (eye) TID 5 Days Qty: 3.5 0RF mycophenolate sodium 180 mg tablet,delayed release (DR/EC) 540 mg PO BID Rx Instructions: 3 tabs at am and 2 tabs at pm Farxiga 10 mg tablet 10 mg PO cholecalciferol (vitamin D3) 25 mcg (1,000 unit) capsule 25 mcg PO DAILY 90 Days Qty: 90 1RF imiquimod 5 % cream in packet 1 appl topical 5XW atorvastatin 40 mg tablet 40 mg PO BEDTIME tacrolimus 1 mg capsule 0 mg PO fluticasone propionate 50 mcg/actuation spray,suspension 1 spray intranasal BID albuterol sulfate [Ventolin HFA] 90 mcg/actuation HFA aerosol inhaler inhalation Interventions: ED Discharge Assessment Last Done: 04/03/23 01:51 Discharge Date/Time: 04/03/23 01:25
[2023-04-02 18:58] VITALS: BP 144/69; PULSE 72; RESP 17; TEMP 36.4; O2SAT 97; BMI 33.1
[2023-04-02 20:13] LABS: MANUAL DIFF FLAG NO
[2023-04-02 20:18] LABS: Basophils Percent Auto 0.6 % (0-2); Eosinophils Absolute Auto 0.7 X10*3/uL (0.0-0.4); Eosinophils Percent Auto 9.9 % (0-4); Imm Gran Abs Auto 0.01 X10*3/uL (0.00-0.03); Imm Gran Pct Auto 0.1 % (0.0-0.4); Lymphocytes Absolute Auto 1.5 X10*3/uL (1.2-4.9); Lymphocytes Percent Auto 21.9 % (20-40); Mean Corpuscular HGB Conc 33.3 g/dl (31.0-35.0); Mean Corpuscular Hemoglobin 28.2 pg (27.0-33.0); Mean Corpuscular Volume 84.7 fL (80.0-98.0); Mean Platelet Volume 10.2 fL (9.4-12.3); Monocytes Absolute Auto 0.4 X10*3/uL (0.1-1.2); Monocytes Percent Auto 5.7 % (2-11); Neutrophils Absolute Auto 4.2 x10*3/uL (2.0-8.3); Neutrophils Percent Auto 61.8 % (45-73); Platelet Count 197 X10*3/uL (160-400); Red Blood Count 4.96 X10*6/uL (4.20-5.50); White Blood Count 6.9 X10*3/uL (4.8-10.8)
[2023-04-02 20:21] LABS: Appearance Urine Clear; Color Urine Yellow; Glucose Urine UA >=1000 mg/dL (Negative); Leukocyte Esterase Urine Negative (Negative); Nitrite Urine Negative (Negative); PH 5.5 (5.0-9.0); UMIC TRIGGER UACC YES; Urine Blood Trace (Negative); Urine Ketones Negative (Negative); Urine Protein Negative (Neg-Trace)
[2023-04-02 20:26] LABS: Bacteria Urine None Seen (None Seen); Hyaline Casts Urine 0-2 /LPF (0-2); RBC Urine 0-2 /HPF (0-2); Squamous Epithelial Cell Urine 0-2 /HPF (0-2); WBC Urine 0-5 /HPF (0-5)
[2023-04-02 20:53] LABS: Alanine Aminotransferase 14 U/L (0-31); Albumin Level 4.3 g/dL (3.5-5.0); Alkaline Phosphatase 85 U/L (39-117); Anion Gap 14 (12-20); Aspartate Amino Transferase 15 U/L (5-31); Bilirubin Total 0.3 mg/dL (0.0-1.0); Blood Urea Nitrogen 30 mg/dL (9-16); Carbon Dioxide 22 mmol/L (22-29); Chloride 108 mmol/L (96-108); Creatinine Clr Calc Pharmacy 55.4; Estimated Glomerular Filt Rate 52; Glucose Random 143 mg/dL (60-115); Potassium 4.1 mmol/L (3.3-5.1); Sodium 140 mmol/L (135-145); Total Protein 7.5 g/dL (6.5-8.0)
[2023-04-02 21:48] VITALS: BP 132/59; PULSE 75; RESP 16; TEMP 36.7; O2SAT 98
[2023-04-03] MEDS: Phenazopyridine HCL 200 MG TABLET PO (01:18)
== END 2023-04-03 01:25 | disposition home or self-care (01) ==
PROVIDERS: Registered Nurse Emergency; Emergency Provider Internal Medicine; PCP Internal Medicine
DX: R39.89 Other symptoms and signs involving the genitourinary system (principal); R10.2 Pelvic and perineal pain; R30.0 Dysuria; R35.0 Frequency of micturition; Z79.899 Other long term (current) drug therapy; Z87.891 Personal history of nicotine dependence
CPT/HCPCS: 36415; 51798; 76830; 76856; 80053; 81001; 85025; 99284

== ENCOUNTER 2023-04-05 14:19 | Outpatient (AMB) | payer OTHER, SELFPAY ==
--- NOTE | 2023-04-05 14:22 | A.OFFPC_ITS ---
Vital Signs 04/05/23 14:28 Height 5 ft 1 in Weight 178 lb BMI 33.6 BP 130/86 Blood Pressure Location Rt brachial Position Sitting Pulse 70 Pulse Source Pulse Oximeter Pulse Oximetry (%) 96 Oxygen Delivery Method Room Air Intake Visit Reasons: PE Intake Note: Pt is here for PE. Eyeglass Lens Generator Required: No Accompanied by: Self / Same As Patient Allergies amlodipine Adverse Reaction (Intermediate, Verified 04/05/23 14:43) leg edema morphine Adverse Reaction (Mild, Verified 04/05/23 14:43) Rash Medication List - Last Reconciled 04/05/23 by Jessica Dietz MD albuterol sulfate 90 mcg/actuation (Ventolin HFA) inhalation atorvastatin 40 mg PO BEDTIME blood sugar diagnostic (FreeStyle Lite Strips) Use 1 test strip once a day blood-glucose meter (FreeStyle Lite Meter kit) As directed cholecalciferol (vitamin D3) 25 mcg PO DAILY 90 days dapagliflozin propanediol (Farxiga) 10 mg PO doxycycline hyclate 100 mg PO BID erythromycin 0.5 inches ophthalmic (eye) TID 5 days fluticasone propionate 50 mcg/actuation 1 spray intranasal BID imiquimod 5% 1 appl topical 5XW labetalol 200 mg PO BID 90 days lancets (FreeStyle Lancets) Use 1 lancet once a day lubiprostone (Amitiza) 24 mcg PO BID mycophenolate sodium 540 mg PO BID nifedipine ER 60 mg PO DAILY 90 days oxycodone 5 mg PO BID PRN 28 days phenazopyridine (Pyridium) 200 mg PO TID 2 days tacrolimus 0 mg PO Tobacco use date assessed: 07/16/22 HPI HPI Comments History of Present Illness Details This is a 57-year-old female with diabetes mellitus type 2 that comes for her physical exam. A1c within goal. Diabetic eye exam as per patient was less than a year ago. Colonoscopy done 2022 showing tubular adenoma. Mammogram done 2022. Pap smear was about 2 years ago at [facility]. No chest pain or shortness of breath. [facility] Medical History (Updated 04/05/23 @ 14:57 by Jessica Dietz MD) Diabetes mellitus Right ankle pain Left ankle pain Fatigue Hair loss Back pain Pancreatic lesion Pneumonia due to COVID-19 virus Essential hypertension Surgical History History of esophagogastroduodenoscopy (EGD) Hx of colonoscopy Kidney transplant recipient AV fistula Kidney transplant status History of tubal ligation History of foot surgery History of lipoma History of benign breast tumor Family History Father CVD (cardiovascular disease) Prostate cancer Mother No problems noted. Social History Household Members: Children Housing: Apartment Alcohol intake: never Patient Tobacco Use Status: Former Tobacco user Tobacco use type: Cigarette e-Cigarette/Vaping Use: Never Used Second Hand Smoke Exposure: No service: No Current occupational status: unemployed Cognitive needs: No Hearing needs: No Vision needs: No Questionnaire Thrive Questionnaire Date Thrive assessed: 07/16/22 JONNIE-7 AMB Questionnaire JONNIE-7 Date JONNIE - 7 assessed: 07/16/22 Source: Developed by Drs. Tereso Jones, Marilyn Cedeno, Homer Huston and colleagues, with an educational catrina from [employer]. Review of Systems Const All systems reviewed & are unremarkable except as noted in HPI and below Eyes Reports no additional complaints, Denies change in vision and Denies other visual disturbances Card Denies chest pain at rest, Denies chest pain with activity, Denies edema, Denies irregular heart rhythm, Denies claudication, Denies dyspnea, Denies dyspnea on exertion, Denies orthopnea, Denies paroxysmal nocturnal dyspnea and Denies slow heart rate Resp Denies cough, Denies dyspnea and Denies dyspnea on exertion GI Denies abdominal pain, Denies change in bowel habits, Denies excessive flatus, Denies nausea and Denies vomiting Denies urinary incontinence, Denies urinary hesitancy and Denies urinary urgency Musc Denies abnormal gait, Denies atrophy, Denies deformity and Denies limited range of motion Skin/Breast Denies bleeding lesions, Denies changing lesions and Denies rash Neuro Denies abnormal gait and Denies lack of coordination Physical exam (Primary Care) Vital Signs: Last Vital Signs Pulse 70 04/05/23 14:28 BP 130/86 04/05/23 14:28 Pulse Ox 96 04/05/23 14:28 Oxygen Delivery Method Room Air 04/05/23 14:28 BMI result Body Mass Index 33.6 Tobacco/Smoking Status: Tobacco use Status Tobacco use date assessed 07/16/22 04/05/23 14:26 Patient Tobacco Use Status Former Tobacco user 04/05/23 14:26 Tobacco use type Cigarette 04/05/23 14:26 e-Cigarette/Vaping Use Never Used 04/05/23 14:26 Thrive Assessment: Date of Thrive Assessment Date Thrive assessed 07/16/22 04/05/23 14:26 Const Orientation/consciousness: patient oriented x3 [facility] Head: Yes normal to inspection, Yes normocephalic and Yes atraumatic Ears: external ears normal Eyes General: appearance normal, both eyes and all related structures Eyelids: Yes eyelids normal Conjunctivae: conjunctivae normal Neck Neck: Yes normal visual inspection and Yes supple Resp Effort & Inspection: normal respiratory effort Auscultation: clear to auscultation bilaterally Cardio Jugular venous distension: no JVD Rate: regular rate Rhythm: regular rhythm Heart sounds: S1 normal heart sound present and S2 normal heart sound present GI Inspection: Yes normal to inspection Palpation (GI): Soft to palpation and nontender Auscultation: normal bowel sounds Skin General skin exam: no rashes or lesions noted Neuro General: patient oriented x3 and no focal motor deficits Extrem General: Yes full ROM Psych Appearance: grossly normal Office Procedures Flu Questionnaire Does the patient have a severe egg allergy?: No Does the patient have severe life threatening allergies?: No Does the patient have a fever or illness today?: No Has the patient ever had Guillain-Gary Syndrome?: No Has the patient ever had any past reaction to a flu shot?: No Results AMB Hemoglobin A1c AMB Hemoglobin A1c 6.2 % Last Edit by ELADIO Mcneal on 04/05/23 14:50 Immunizations flu vacc [id number] 6mos up(PF) 60 mcg(15 mcgx4)/0.5 mL IM syringe Performing Provider: Jessica Dietz MD [facility] Administered by: ELADIO Mcneal on 04/05/23 14:45 Dose Route Admin Location Dispensed Lot Number Expiration Date NDC Shank Cutter 0.5 mL IM Right Deltoid 0.5 mL [id number] 11/28/23 01227-144-42 [employer] VIS Given Date VIS Provided VIS Publication Date 04/05/23 Single Vaccine 21 Eligibility Eligibility Date Funding Source Not [facility] Eligible 04/05/23 Private Assessment and Plan Assessment & Plan (1) Physical exam: Code(s): Z00.00 - Encounter for general adult medical examination without abnormal findings Plan: Repeat in a year (2) Diabetes mellitus: Code(s): E11.9 - Type 2 diabetes mellitus without complications Plan: Continue metformin. A1c goal is equal or less than 7% Orders: Orders Influenza [id number] Immunization Today Z23 - Encounter for immunization Vitamin D 25-OH Total Today E55.9 - Vitamin D deficiency, unspecified Comprehensive [place]. Panel Fast Today K59.04 - Chronic idiopathic constipation SARS-CoV2/FLU/RSV Today R09.89 - Other specified symptoms and signs involving the circulatory and respiratory systems Lipid Panel Today E78.5 - Hyperlipidemia, unspecified AMB Hemoglobin A1c Today E11.9 - Type 2 diabetes mellitus without complications Coding Level of Care Code Est Pt Prev Care 40-64y(75752) Diagnoses Physical exam Z00.00 Diabetes mellitus E11.9 Time Spent (min) 33
[2023-04-05 14:28] VITALS: BP 130/86; PULSE 70; O2SAT 96; BMI 33.6
== END 2023-04-05 14:56 | disposition home or self-care (01) ==
PROVIDERS: Visit Provider Internal Medicine
DX: Z00.00 Encounter for general adult medical examination without abnormal findings (principal); E11.9 Type 2 diabetes mellitus without complications; Z23 Encounter for immunization
CPT/HCPCS: 83036; 90471; 90686; 99396

== ENCOUNTER 2023-04-07 08:10 | Outpatient (REF) | payer OTHER, SELFPAY ==
[2023-04-07 09:23] LABS: Influenza A PCR NEGATIVE (Negative); Influenza B PCR NEGATIVE (Negative); Resp Syncy Virus RNA Qual PCR NEGATIVE (Negative); SARS COV2 PCR INHOUSE NEGATIVE (Negative)
[2023-04-07 09:45] LABS: Alanine Aminotransferase 15 U/L (0-31); Albumin Level 4.2 g/dL (3.5-5.0); Alkaline Phosphatase 79 U/L (39-117); Anion Gap 13 (12-20); Aspartate Amino Transferase 17 U/L (5-31); Bilirubin Total 0.4 mg/dL (0.0-1.0); Blood Urea Nitrogen 22 mg/dL (9-16); Calcium 10.1 mg/dL (8.4-10.2); Carbon Dioxide 29 mmol/L (22-29); Chloride 106 mmol/L (96-108); Cholesterol 169 mg/dL (<200); Estimated Glomerular Filt Rate 42; Glucose Fasting 143 mg/dL (60-99); HDL Cholesterol 39 mg/dL (>40); LDL Cholesterol Calculated 80 mg/dL (<100); Potassium 4.5 mmol/L (3.3-5.1); Sodium 143 mmol/L (135-145); Total Protein 7.1 g/dL (6.5-8.0); Triglycerides 252 mg/dL (<150)
== END 2023-04-07 08:11 | disposition home or self-care (01) ==
LOC: HO.LAB 08:10
PROVIDERS: PCP Internal Medicine; Visit Provider Internal Medicine
DX: E55.9 Vitamin D deficiency, unspecified (principal); R09.89 Other specified symptoms and signs involving the circulatory and respiratory systems; E78.5 Hyperlipidemia, unspecified; K59.04 Chronic idiopathic constipation
CPT/HCPCS: 0241U; 80053; 80061; 82306

== ENCOUNTER 2023-08-06 08:32 | Outpatient (AMB) | payer OTHER, SELFPAY ==
--- NOTE | 2023-08-06 08:43 | A.OFFVIS_ITS ---
Intake Vital Signs 08/06/23 08:44 Height 5 ft 1 in Weight 174 lb 2.643 oz BMI 32.9 BP 132/66 Blood Pressure Location Rt brachial Position Sitting Pulse 60 Intake Visit Reasons: 4 month follow up Intake Note: Ginette presents in the office as a 4 month follow up. CC: She states that she because of the sugars she has pains from the waist down. She states she suffers from depression at times but she has to keep going forward. She states that she has constipation and she has blood when she has a bowel movement. 1 month or so ago it happened and there was not a lot of blood but it still concerned you. 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: Had been seeing Kaye Lambert issues: 1/ IBS-C 2/ GERD 3/constipation--tried linaclotide, amiti za, 2/2 to slow transit, opiates, CCB, and enlarged kidneys, possible pelvic flood dysfucntion 4/ suspected pancreas lesions colonoscopy 2017---diverticulosis, no other lesions I had seen her for left sided abdominal pain and ongoing chronic constipation referred to [facility] for ARM consideration given to gen on days she is taking opiates she has to manually disimpact, can be painful to pass she is on oxycodone for back pain, takes 2-3 times/week the abx I gave her did reduce her bloating and gas US 12/18--polycystic kidneys, hepatic cysts, ovarian cyst 4.3 cm EGD for epigastric pain: 12/2021 gastritis duodenitis esophagitis path: pos H pylori Colonoscopy: 08/2022--- TA, random colo bx neg h pylori breath test was neg on / INTERIM: She has been having constipation she has been taking oxycodone for leg pains from a fall and accident years ago one a day for few years she has noted some blood on wiping she has nausea and occ vomiting no blood she denies abdominal pain, only chronic back pain EXAM: GENERAL: The patient is well developed and nontoxic. VITAL SIGNS:see workflow HEENT: Nonicteric sclerae, PERRLA, EOMI. Oropharynx clear. Moist mucous membranes. Conjunctivae appear well perfused. No thyroid mass. CHEST: Chest wall is nontender. HEART: Regular rate and rhythm without murmurs. LUNGS: Clear to auscultation bilaterally. ABDOMEN: Soft, positive bowel sounds, mild tender epigastrium and around transplanted kidney, kidney palpable, no organomegaly.no flank tenderness SKIN: No rash, no excessive bruising, petechiae, or purpura. NEUROLOGIC: Cranial nerves II-XII intact without motor/sensory deficit. a/P; 1/ constipation--on amitiza but not been taking scheduled only prn --also maybe SE of her other meds farhana CCB 2/ H pylori gastritis, cured PLAN: 1/ taking amitiza scheduled, M,W, F prev ent catch up in term of her constipation, can add one tab on her off day 2/can consider movantik in future [facility] Medical History Diabetes mellitus Right ankle pain Left ankle pain Fatigue Hair loss Back pain Pancreatic lesion Pneumonia due to COVID-19 virus Essential hypertension Surgical History History of esophagogastroduodenoscopy (EGD) Hx of colonoscopy Kidney transplant recipient AV fistula Kidney transplant status History of tubal ligation History of foot surgery History of lipoma History of benign breast tumor Family History Father CVD (cardiovascular disease) Prostate cancer Mother No problems noted. Social History Household Members: Children Housing: Apartment Alcohol intake: never Patient Tobacco Use Status: Former Tobacco user Tobacco use type: Cigarette e-Cigarette/Vaping Use: Never Used Second Hand Smoke Exposure: No service: No Current occupational status: unemployed Cognitive needs: No Hearing needs: No Vision needs: No Physical Exam Vital Signs: Last Vital Signs Pulse 60 08/06/23 08:44 BP 132/66 08/06/23 08:44 BMI result Body Mass Index 32.9 Assessment & Plan Assessment & Plan (1) Irritable bowel syndrome with constipation: Code(s): K58.1 - Irritable bowel syndrome with constipation Plan: see above Medications: Refilled lubiprostone (Amitiza) 24 mcg PO BID 60 caps 3RF Coding Level of Care Code Est Pt Level 3 (41712) Diagnoses Irritable bowel syndrome with constipation K58.1
[2023-08-06 08:44] VITALS: BP 132/66; PULSE 60; BMI 32.9
== END 2023-08-06 09:15 | disposition home or self-care (01) ==
PROVIDERS: PCP Internal Medicine; Visit Provider Internal Medicine Gastroenterology
DX: K58.1 Irritable bowel syndrome with constipation (principal)
CPT/HCPCS: 99213

== ENCOUNTER → 2023-08-06 08:32 | Outpatient (BNVA) | payer OTHER, SELFPAY | PROVIDERS: PCP Internal Medicine; Visit Provider Internal Medicine Gastroenterology | DX: K58.1 Irritable bowel syndrome with constipation (principal) | CPT/HCPCS: 99212 ==

== ENCOUNTER 2023-08-18 11:16 | Outpatient (REF) | payer OTHER, SELFPAY ==
[2023-08-18 11:35] LABS: MANUAL DIFF FLAG NO
[2023-08-18 11:52] LABS: Basophils Percent Auto 0.6 % (0-2); Eosinophils Absolute Auto 0.4 X10*3/uL (0.0-0.4); Eosinophils Percent Auto 5.3 % (0-4); Hematocrit 43.1 % (37.0-47.0); Hemoglobin 14.4 g/dl (12.0-16.0); Imm Gran Abs Auto 0.02 X10*3/uL (0.00-0.03); Imm Gran Pct Auto 0.3 % (0.0-0.4); Lymphocytes Absolute Auto 1.3 X10*3/uL (1.2-4.9); Lymphocytes Percent Auto 19.2 % (20-40); Mean Corpuscular HGB Conc 33.4 g/dl (31.0-35.0); Mean Corpuscular Hemoglobin 28.3 pg (27.0-33.0); Mean Corpuscular Volume 84.8 fL (80.0-98.0); Mean Platelet Volume 10.7 fL (9.4-12.3); Monocytes Absolute Auto 0.4 X10*3/uL (0.1-1.2); Monocytes Percent Auto 5.7 % (2-11); Neutrophils Absolute Auto 4.6 x10*3/uL (2.0-8.3); Neutrophils Percent Auto 68.9 % (45-73); Platelet Count 184 X10*3/uL (160-400); Red Blood Count 5.08 X10*6/uL (4.20-5.50); Red Cell Distribution Width 13.1 % (11.0-16.0); White Blood Count 6.7 X10*3/uL (4.8-10.8)
[2023-08-18 12:39] LABS: Alanine Aminotransferase 19 U/L (0-31); Anion Gap 12 (12-20); Aspartate Amino Transferase 16 U/L (5-31); Blood Urea Nitrogen 23 mg/dL (9-16); Calcium 10.4 mg/dL (8.4-10.2); Carbon Dioxide 27 mmol/L (22-29); Chloride 107 mmol/L (96-108); Estimated Glomerular Filt Rate 36; Potassium 4.5 mmol/L (3.3-5.1); Sodium 141 mmol/L (135-145)
[2023-08-18 13:03] LABS: Appearance Urine Clear; Color Urine Yellow; Glucose Urine UA >=1000 mg/dL (Negative); Leukocyte Esterase Urine Negative (Negative); Nitrite Urine Negative (Negative); PH 5.5 (5.0-9.0); Specific Gravity - Urine >= 1.030 (1.005-1.025); UMIC TRIGGER UACC YES; Urine Blood Negative (Negative); Urine Ketones Negative (Negative); Urine Protein Negative (Neg-Trace)
[2023-08-18 13:08] LABS: Bacteria Urine None Seen (None Seen); Hyaline Casts Urine 0-2 /LPF (0-2); RBC Urine 0-2 /HPF (0-2); Squamous Epithelial Cell Urine 0-2 /HPF (0-2); WBC Urine 0-5 /HPF (0-5)
[2023-08-18 13:23] LABS: Protein/Creatinine Ratio, Ur 0.11 (<0.2); Total Protein Urine Random 12 mg/dL (<12)
== END 2023-08-18 11:17 | disposition home or self-care (01) ==
LOC: HO.LAB 11:16
PROVIDERS: PCP Internal Medicine; Visit Provider Physician Assistant
DX: N18.31 Chronic kidney disease, stage 3a (principal); E11.9 Type 2 diabetes mellitus without complications; E21.1 Secondary hyperparathyroidism, not elsewhere classified; E78.5 Hyperlipidemia, unspecified; Z92.25 Personal history of immunosuppression therapy; Z94.0 Kidney transplant status; Z79.4 Long term (current) use of insulin; Z79.899 Other long term (current) drug therapy
CPT/HCPCS: 36415; 80051; 80197; 81001; 81003; 82310; 82550; 82565; 82570; 84156; 84450; 84460; 84520; 85025

== ENCOUNTER 2023-09-15 12:56 | Outpatient (REF) | payer OTHER, SELFPAY ==
--- NOTE | ~2023-09-15 | MM_ITS ---
EXAMINATION: MM SCREENING DIGITAL BREAST TOMOSYNTHESIS, BILATERAL CLINICAL INFORMATION: Screening. Asymptomatic. The patient is status post benign upper outer quadrant left breast excision the remote past. COMPARISON: Mammography: This study is compared with prior exams dating back to 2019. TECHNIQUE: Digital breast tomosynthesis is performed in both the craniocaudal and mediolateral oblique views along with computer-aided detection (CAD). Synthesized 2D images are generated from the tomosynthesis. FINDINGS: There are scattered areas of fibroglandular density (ACR BI-RADS breast composition Category b). There are no significant masses, abnormal calcifications, or other abnormalities. There are minor architectural changes in the upper outer quadrant of the left breast from prior benign excision. There is a tissue marker in the upper outer quadrant of the right breast from prior benign percutaneous biopsy. MM/MM tomosynthesis screening BI IMPRESSION: No mammographic evidence of malignancy. ASSESSMENT: BI-RADS BI-RADS 2 - Benign Findings RECOMMENDATION: Routine annual mammography screening. 1 year F/U This examination should not preclude the clinical evaluation of a suspicious palpable abnormality. This patient's information was entered into a reminder system with a target due date for their next mammogram.
== END 2023-09-15 12:57 | disposition home or self-care (01) ==
LOC: HO.MAMMO 12:56
PROVIDERS: PCP Internal Medicine; Visit Provider Internal Medicine
DX: Z12.31 Encounter for screening mammogram for malignant neoplasm of breast (principal)
CPT/HCPCS: 77063; 77067

== ENCOUNTER → 2023-09-15 13:15 | Outpatient (BNV) | payer OTHER, SELFPAY | PROVIDERS: PCP Internal Medicine; Visit Provider Radiology Diagnostic Radiology | DX: Z12.31 Encounter for screening mammogram for malignant neoplasm of breast (principal) | CPT/HCPCS: 77063; 77067 ==

== ENCOUNTER 2023-09-20 10:35 | Outpatient (REF) | payer OTHER, SELFPAY ==
[2023-09-20 10:53] LABS: MANUAL DIFF FLAG NO
[2023-09-20 11:14] LABS: Basophils Percent Auto 0.5 % (0-2); Eosinophils Absolute Auto 0.2 X10*3/uL (0.0-0.4); Hematocrit 41.4 % (37.0-47.0); Hemoglobin 13.8 g/dl (12.0-16.0); Imm Gran Abs Auto 0.02 X10*3/uL (0.00-0.03); Imm Gran Pct Auto 0.3 % (0.0-0.4); Lymphocytes Absolute Auto 0.9 X10*3/uL (1.2-4.9); Lymphocytes Percent Auto 15.3 % (20-40); Mean Corpuscular HGB Conc 33.3 g/dl (31.0-35.0); Mean Corpuscular Hemoglobin 28.6 pg (27.0-33.0); Mean Corpuscular Volume 85.7 fL (80.0-98.0); Mean Platelet Volume 10.6 fL (9.4-12.3); Monocytes Absolute Auto 0.3 X10*3/uL (0.1-1.2); Monocytes Percent Auto 5.6 % (2-11); Neutrophils Absolute Auto 4.6 x10*3/uL (2.0-8.3); Neutrophils Percent Auto 75.3 % (45-73); Platelet Count 188 X10*3/uL (160-400); Red Blood Count 4.83 X10*6/uL (4.20-5.50); Red Cell Distribution Width 13.3 % (11.0-16.0); White Blood Count 6.1 X10*3/uL (4.8-10.8)
[2023-09-20 11:14] LABS: Appearance Urine Clear; Color Urine Yellow; Glucose Urine UA >=1000 mg/dL (Negative); Leukocyte Esterase Urine Small (1+) (Negative); Nitrite Urine Negative (Negative); PH 6.5 (5.0-9.0); Specific Gravity - Urine 1.025 (1.005-1.025); UMIC TRIGGER UACC YES; Urine Blood Negative (Negative); Urine Ketones Negative (Negative); Urine Protein Negative (Neg-Trace)
[2023-09-20 11:18] LABS: Bacteria Urine Trace (None Seen); Hyaline Casts Urine 0-2 /LPF (0-2); RBC Urine 0-2 /HPF (0-2); UACC Culture Trigger YES
[2023-09-20 11:26] LABS: Estimated Average Glucose 140 mg/dL; Hemoglobin A1c % 6.5 % (<6.0)
[2023-09-20 11:40] LABS: Creatinine Urine 93.43 mg/dL; Protein/Creatinine Ratio, Ur 0.13 (<0.2); Total Protein Urine Random 12 mg/dL (<12)
[2023-09-20 11:48] LABS: Alanine Aminotransferase 15 U/L (0-31); Anion Gap 11 (12-20); Aspartate Amino Transferase 16 U/L (5-31); Blood Urea Nitrogen 23 mg/dL (9-16); Calcium 10.2 mg/dL (8.4-10.2); Carbon Dioxide 26 mmol/L (22-29); Chloride 108 mmol/L (96-108); Estimated Glomerular Filt Rate 49; Potassium 4.3 mmol/L (3.3-5.1); Sodium 141 mmol/L (135-145)
[2023-09-21 14:34] LABS: Tacrolimus Prograf 7.4 mcg/L
== END 2023-09-20 10:36 | disposition home or self-care (01) ==
LOC: HO.LAB 10:35
PROVIDERS: PCP Internal Medicine; Visit Provider Physician Assistant
DX: E11.9 Type 2 diabetes mellitus without complications (principal); N18.31 Chronic kidney disease, stage 3a; Z92.25 Personal history of immunosuppression therapy; Z94.0 Kidney transplant status
CPT/HCPCS: 36415; 80051; 80197; 81001; 82310; 82550; 82565; 82570; 83036; 84156; 84450; 84460; 84520; 85025; 87086

== ENCOUNTER 2023-10-04 09:47 | Outpatient (AMB) | payer OTHER, SELFPAY ==
--- NOTE | 2023-10-04 09:49 | MHC.PC.OV ---
Vital Signs 10/04/23 09:51 Height 5 ft 1 in Weight 168 lb BMI 31.7 BP 120/82 Blood Pressure Location Lt brachial Position Sitting Intake Visit Reasons: bp Intake Note: Patient here for a follow up BP, DM, c/o abdominal pain, frequent vomiting after eating Overlock Waistline Joiner Required: No Accompanied by: Self / Same As Patient Allergies amlodipine Adverse Reaction (Intermediate, Verified 10/04/23 10:08) leg edema morphine Adverse Reaction (Mild, Verified 10/04/23 10:08) Rash Medication List - Last Reconciled 10/04/23 by Jessica Dietz MD albuterol sulfate 90 mcg/actuation (Ventolin HFA) inhalation alcohol swabs (Alcohol Prep Pads) 1 pad topical BID atorvastatin 40 mg PO BEDTIME 90 days blood sugar diagnostic (FreeStyle Lite Strips) Use 1 test strip once a day blood-glucose meter (FreeStyle Lite Meter kit) As directed cholecalciferol (vitamin D3) 25 mcg PO DAILY 90 days doxycycline hyclate 100 mg PO BID empagliflozin (Jardiance) 10 mg PO DAILY 90 days erythromycin 0.5 inches ophthalmic (eye) TID 5 days fluticasone propionate 50 mcg/actuation 1 spray intranasal BID imiquimod 5% 1 appl topical 5XW labetalol 200 mg PO BID 90 days lancets (FreeStyle Lancets) Use 1 lancet once a day lubiprostone (Amitiza) 24 mcg PO DAILY lubiprostone (Amitiza) 24 mcg PO BID metformin ER 500 mg PO BID 90 days mycophenolate sodium 540 mg PO BID nifedipine ER 60 mg PO DAILY 90 days oxycodone 5 mg PO BID PRN 28 days phenazopyridine (Pyridium) 200 mg PO TID 2 days tacrolimus 0 mg PO trazodone 100 mg PO BEDTIME PRN 90 days Tobacco use date assessed: 10/04/23 Dental Screening Dental Screen Date: 10/04/23 Did you have a dental visit in the last 12 months?: No Did you have a dental problem in the last 6 months where you did not have access to dental care?: No Was dental information given to patient?: Patient has dentist HPI HPI Comments History of Present Illness Details This is a 58-year-old female with hypertension, chronic idiopathic constipation, diabetes mellitus type 2, hyperlipidemia and insomnia that comes today for follow-up on her conditions. Blood pressure stable. Constipation well controlled with Amitiza. Last A1c was within goal but she said her blood glucose can run in the 200s at home. I will increase metformin to 500 mg twice a day. I will replace Farxiga with Jardiance. Lipid panel will be ordered for the next office visit and her LDL goal should be less than 70. Blood pressure follow by Nephrology. On trazodone 50 mg for her insomnia and she still complains. I will increase trazodone to 100 mg. No chest pain or shortness of breath. Complains of abdominal pain more in the epigastrium associated with vomiting that has been present before starting metformin. Will order upper GI series. [facility] Medical History (Updated 10/04/23 @ 10:24 by Jessica Dietz MD) Malnutrition Diabetes mellitus Right ankle pain Left ankle pain Fatigue Hair loss Back pain Pancreatic lesion Pneumonia due to COVID-19 virus Essential hypertension Surgical History History of esophagogastroduodenoscopy (EGD) Hx of colonoscopy Kidney transplant recipient AV fistula Kidney transplant status History of tubal ligation History of foot surgery History of lipoma History of benign breast tumor Family History Father CVD (cardiovascular disease) Prostate cancer Mother No problems noted. Social History Household Members: Children Housing: Apartment Alcohol intake: never Patient Tobacco Use Status: Former Tobacco user Tobacco use type: Cigarette e-Cigarette/Vaping Use: Never Used Second Hand Smoke Exposure: No service: No Current occupational status: unemployed Cognitive needs: No Hearing needs: No Vision needs: Yes Questionnaire PHQ-9 Over the last 2 weeks, how often have you been bothered by any of the following problems? 1. Little interest or pleasure in doing things: not at all 2. Feeling down, depressed, or hopeless: several days 3. Trouble falling or staying asleep, or sleeping too much: several days 4. Feeling tired or having little energy: several days 5. Poor appetite or overeating: several days 6. Feeling bad about yourself - or that you are a failure or have let yourself or your family down: not at all 7. Trouble concentrating on things, such as reading the newspaper or watching television: not at all 8. Moving or speaking so slowly that other people could have noticed. Or the opposite - being so fidgety or restless that you have been moving around a lot more than usual: not at all 9. Thoughts that you would be better off or of hurting yourself in some way: not at all Total score: 4 Depression Screening Interpretation: Positive Depression Screening Follow-up: Existing condition Depression Screening Done: Yes 42104 - PHQ-9 Billing: Yes Source: Developed by Drs. Tereso Jones, Marilyn Cedeno, Homer Huston and colleagues, with an educational catrina from [employer]. Thrive Questionnaire Date Thrive assessed: 10/04/23 I am a: Patient What is your living situation today?: I have a steady place to live Within the past 12 months, did the food you bought not last and you didn't have the money to get more?: Never true Within the past 12 months, did you worry whether your food would run out before you got money to buy more?: Never true Do you have trouble paying for medicines?: No Do you have trouble getting transportation to medical appointments?: No Do you have trouble paying your heating and electricity bill?: No Do you have trouble taking care of your child, family member or friend?: No Do you have trouble with day-to-day activities such as bathing, preparing meals, shopping, managing finances, etc.?: No Are you currently unemployed and looking for a job?: No Are you interested in more education?: No Please select the resources that you would like help with: None Currently or been in a relationship where the following occur: no concerns reported THRIVE Score: 0 AUDIT C Alcohol Use Questionnaire (AUDIT-C) 1. How often do you have a drink containing alcohol?: Never Total Score: 0 Score Reviewed/Action Taken: No JONNIE-7 AMB Questionnaire JONNIE-7 Date JONNIE - 7 assessed: 10/04/23 Feeling nervous, anxious, or on edge: 1 = Several days Not being able to stop or control worryin = Not at all Worrying too much about different things: 1 = Several days Trouble relaxin = Not at all Being so restless that it is hard to sit still: 0 = Not at all Becoming easily annoyed or irritable: 0 = Not at all Feeling afraid as if something awful might happen: 1 = Several days Total JONNIE-7 score (0-4 normal; 5-9 mild; 10-14 moderate; 15-21 severe): 3 Source: Developed by Drs. Tereso Jones, Marilyn Cedeno, Homer Huston and colleagues, with an educational catrina from [employer]. JONNIE-7 Assessment Billing JONNIE-7 Assessment Tool: JONNIE-7 Assessment 43123 Review of Systems Const All systems reviewed & are unremarkable except as noted in HPI and below Eyes Reports no additional complaints, Denies change in vision and Denies other visual disturbances Card Denies chest pain at rest, Denies chest pain with activity, Denies edema, Denies irregular heart rhythm, Denies claudication, Denies dyspnea, Denies dyspnea on exertion, Denies orthopnea, Denies paroxysmal nocturnal dyspnea and Denies slow heart rate Resp Denies cough, Denies dyspnea and Denies dyspnea on exertion GI Reports abdominal pain, Denies change in bowel habits, Denies excessive flatus, Reports nausea and Reports vomiting Denies urinary incontinence, Denies urinary hesitancy and Denies urinary urgency Musc Denies abnormal gait, Denies atrophy, Denies deformity and Denies limited range of motion Skin/Breast Denies bleeding lesions, Denies changing lesions and Denies rash Neuro Denies abnormal gait and Denies lack of coordination Physical exam (Primary Care) Vital Signs: Last Vital Signs BP 120/82 10/04/23 09:51 BMI result Body Mass Index 31.7 Tobacco/Smoking Status: Tobacco use Status Tobacco use date assessed 10/04/23 10/04/23 09:58 Patient Tobacco Use Status Former Tobacco user 10/04/23 09:58 Tobacco use type Cigarette 10/04/23 09:58 e-Cigarette/Vaping Use Never Used 10/04/23 09:58 PHQ-9: PHQ-9 Score PHQ-9: Total score 4 10/04/23 10:01 Depression Screening Interpretation: Positive Depression Screening Follow-up: Existing condition Thrive Assessment: Date of Thrive Assessment Date Thrive assessed 10/04/23 10/04/23 09:58 Currently or been in a relationship where the following occur: no concerns reported Resp Effort & Inspection: normal respiratory effort Auscultation: clear to auscultation bilaterally Cardio Jugular venous distension: no JVD Rate: regular rate Rhythm: regular rhythm Heart sounds: S1 normal heart sound present and S2 normal heart sound present Extrem General: Yes full ROM Assessment and Plan Assessment & Plan (1) Diabetes mellitus: Code(s): E11.9 - Type 2 diabetes mellitus without complications Plan: Increase metformin frequency from 500 mg once a day to twice daily. A1c goal is equal or less than 7%. (2) Essential hypertension: Code(s): I10 - Essential (primary) hypertension Plan: Continue labetalol and nifedipine. Blood pressure goal is equal or less than 130/80. (3) Hyperlipidemia LDL goal <70: Code(s): E78.5 - Hyperlipidemia, unspecified Plan: Continue statins. Repeat lipid panel. LDL goal should be less than 70. (4) Chronic idiopathic constipation: Code(s): K59.04 - Chronic idiopathic constipation Plan: Continue Amitiza. (5) Insomnia: Code(s): G47.00 - Insomnia, unspecified Plan: Increase trazodone to 100 mg. Orders: Orders Vitamin D 25-OH Total 4 Months E55.9 - Vitamin D deficiency, unspecified Microalbumin, Random (w Creat) 4 Months E11.9 - Type 2 diabetes mellitus without complications Comprehensive [place]. Panel Fast 4 Months E11.9 - Type 2 diabetes mellitus without complications [place] upper GI series Today R10.13 - Epigastric pain Lipid Panel 4 Months E78.5 - Hyperlipidemia, unspecified Medications: New empagliflozin (Jardiance) 10 mg PO DAILY 90 tabs 0RF 90 days trazodone 100 mg PO BEDTIME PRN 90 tabs 0RF sleep 90 days metformin ER 500 mg PO BID 180 tabs 1RF 90 days Coding Level of Care Code Est Pt Level 4 (31664) Diagnoses Diabetes mellitus E11.9 Essential hypertension I10 Hyperlipidemia LDL goal <70 E78.5 Chronic idiopathic constipation K59.04 Insomnia G47.00 Additional Codes JONNIE-7 Assessment Billing - JONNIE-7 Assessment Tool: JONNIE-7 Assessment 21328 ([id number]) Time Spent (min) 23
[2023-10-04 09:51] VITALS: BP 120/82; BMI 31.7
== END 2023-10-04 10:21 | disposition home or self-care (01) ==
PROVIDERS: PCP Internal Medicine; Visit Provider Internal Medicine
DX: E11.69 Type 2 diabetes mellitus with other specified complication (principal); I10 Essential (primary) hypertension; E78.5 Hyperlipidemia, unspecified; K59.04 Chronic idiopathic constipation; G47.00 Insomnia, unspecified
CPT/HCPCS: 99214

== ENCOUNTER 2023-10-04 10:33 | Outpatient (REF) | payer OTHER, SELFPAY ==
[2023-10-04 12:22] LABS: Vitamin D 25-OH Total 49.2 ng/mL (>30)
== END 2023-10-04 10:34 | disposition home or self-care (01) ==
LOC: HO.LAB 10:33
PROVIDERS: Internal Medicine Gastroenterology; PCP Internal Medicine; Visit Provider Internal Medicine
DX: K59.04 Chronic idiopathic constipation (principal); E46 Unspecified protein-calorie malnutrition
CPT/HCPCS: 36415; 82306

== ENCOUNTER 2023-10-05 06:58 | Outpatient (REF) | payer OTHER, SELFPAY ==
--- NOTE | ~2023-10-05 | CT_ITS ---
EXAMINATION: CT ABDOMEN AND PELVIS WITHOUT CONTRAST CLINICAL INFORMATION: Right lower quadrant pain. COMPARISON: Pelvic ultrasound 04/02/2023. CT abdomen and pelvis 11/14/2019. TECHNIQUE: Multidetector volumetric imaging was performed from the superior aspect of the liver through the pubic symphysis. Sagittal and coronal reformatted images were obtained on the technologist's workstation. This CT examination was performed using dose optimization techniques as appropriate, variously including the following: *Automated exposure control *Adjustment of mA and/or kV according to patient size (this includes techniques or standardized protocols for targeted exams where dose is matched to indication/reason for exam; i.e. extremities or head) *Use of iterative reconstruction technique DLP: 662 mGy-cm FINDINGS: LUNG BASES: The visualized lung bases are unremarkable. LIVER, GALLBLADDER, AND BILIARY TREE: The liver is normal in size, shape, and attenuation. There is a 1 cm cyst in the subcapsular position in the right lobe of the liver (3:14). No concerning solid focal hepatic lesion or biliary ductal dilatation is present. The gallbladder is unremarkable with no evidence of radiopaque gallstones, gallbladder wall thickening, or obvious pericholecystic inflammatory changes. PANCREAS: Unremarkable. SPLEEN: Unremarkable. ADRENAL GLANDS: Unremarkable. KIDNEYS AND URETERS: The [place] kidneys show extensive changes of autosomal dominant polycystic kidney disease with multiple benign cysts of varying density, some with calcification. No hydronephrosis. A transplant kidney is seen in the right iliac fossa. Extensive vascular calcifications are seen in the transplant main renal artery. No transplant renal masses, pelvocaliectasis or calculi are seen. The ureters are not dilated. BLADDER: Unremarkable. GASTROINTESTINAL TRACT: The small and large bowel are unremarkable. The appendix is unremarkable. ABDOMINAL WALL: No significant hernia is appreciated. LYMPH NODES: Normal. VASCULAR: Unremarkable. PELVIC VISCERA: The uterus and adnexa are unremarkable. OSSEOUS STRUCTURES: Mild degenerative changes are present in the spine. No bony destructive lesions. CT/CT abdomen pelvis wo IV con IMPRESSION: 1. A cause for the patient's right lower quadrant pain has not been found. The appendix is normal. 2. Incidental note made of autosomal dominant polycystic kidney disease with right iliac fossa transplant kidney. Fleischner guidelines were followed.
[2023-10-05] MEDS: Barium Sulfate Oral (Mocha) 450 ML ORAL.SUSP 900 ML PO (09:56)
== END 2023-10-05 06:59 | disposition home or self-care (01) ==
LOC: HO.CT 06:58
PROVIDERS: PCP Internal Medicine; Visit Provider Physician Assistant
DX: R10.31 Right lower quadrant pain (principal); Z94.0 Kidney transplant status
CPT/HCPCS: 74176

== ENCOUNTER 2023-11-18 09:33 | Emergency (ER) | payer OTHER, SELFPAY ==
[2023-11-18] VITALS (7 sets, daily range): BP systolic 102–140; BP diastolic 56–71; PULSE 70–88; RESP 12–18; TEMP -17.7–37; O2SAT 97–99; BMI 33.4
--- NOTE | ~2023-11-18 | CT_ITS ---
EXAMINATION: CT ABDOMEN AND PELVIS WITHOUT CONTRAST CLINICAL INFORMATION: Right flank pain with history of transplant kidney COMPARISON: CT abdomen pelvis 10/05/2023 TECHNIQUE: Multidetector volumetric imaging was performed from the superior aspect of the liver through the pubic symphysis. Sagittal and coronal reformatted images were obtained on the technologist's workstation. This CT examination was performed using dose optimization techniques as appropriate, variously including the following: *Automated exposure control *Adjustment of mA and/or kV according to patient size (this includes techniques or standardized protocols for targeted exams where dose is matched to indication/reason for exam; i.e. extremities or head) *Use of iterative reconstruction technique DLP: 695 is mGy-cm FINDINGS: LUNG BASES: Trace bilateral pleural effusions are present, right greater than left The visualized lung bases are otherwise unremarkable. LIVER, GALLBLADDER, AND BILIARY TREE: The liver is normal in size, shape, and attenuation. A few benign hepatic cysts are present with no suspicious solid focal hepatic lesion or biliary ductal dilatation is present. The gallbladder is unremarkable with no evidence of radiopaque gallstones, gallbladder wall thickening, or obvious pericholecystic inflammatory changes. PANCREAS: Unremarkable. SPLEEN: Unremarkable. ADRENAL GLANDS: Unremarkable. KIDNEYS AND URETERS: [place] kidneys are enlarged with typical features of autosomal dominant polycystic kidneys with multiple Bosniak class I and Bosniak class II cysts. No hydronephrosis or lithiasis seen in the [place] kidneys there is a transplant kidney seen in the right iliac fossa without hydronephrosis, renal masses, nephrolithiasis or peritransplant fluid collections. BLADDER: Unremarkable. GASTROINTESTINAL TRACT: The small and large bowel are unremarkable aside from sigmoid diverticulosis without diverticulitis. The appendix is unremarkable. ABDOMINAL WALL: No significant hernia is appreciated. LYMPH NODES: Normal. VASCULAR: Unremarkable. PELVIC VISCERA: Unremarkable. OSSEOUS STRUCTURES: Unremarkable. CT/CT abdomen pelvis wo IV con IMPRESSION: 1. A cause for the patient's right flank pain has not been found. 2. There is autosomal dominant polycystic kidney disease with right iliac fossa transplant kidney without hydronephrosis, nephrolithiasis or peritransplant fluid collections. 3. Incidental note made of trace bilateral pleural effusions, sigmoid diverticulosis without diverticulitis and benign hepatic cysts. Fleischner guidelines were followed.
--- NOTE | 2023-11-18 10:19 | PC.NURSE ---
Pt presents c/o lower bilat abd pain x2 days. States she has pain with urination and noted and odor and different colors in her urine. She also c/o nausea without vomiting. Pt is A&Ox3 with a steady gait. She is calm, cooperative and pleasant. Pt in process of providing urine spec, will send to testing when ready and blood labs to be drawn. Awaiting further plan of care.
[2023-11-18 10:35] LABS: MANUAL DIFF FLAG NO
[2023-11-18 10:38] LABS: Appearance Urine Cloudy; Basophils Percent Auto 0.4 % (0-2); Color Urine Yellow; Eosinophils Absolute Auto 0.1 X10*3/uL (0.0-0.4); Eosinophils Percent Auto 1.2 % (0-4); Glucose Urine UA >=1000 mg/dL (Negative); Hematocrit 42.8 % (37.0-47.0); Hemoglobin 14.3 g/dl (12.0-16.0); Imm Gran Abs Auto 0.03 X10*3/uL (0.00-0.03); Imm Gran Pct Auto 0.4 % (0.0-0.4); Leukocyte Esterase Urine Small (1+) (Negative); Lymphocytes Absolute Auto 0.8 X10*3/uL (1.2-4.9); Lymphocytes Percent Auto 10.6 % (20-40); Mean Corpuscular HGB Conc 33.4 g/dl (31.0-35.0); Mean Corpuscular Hemoglobin 28.8 pg (27.0-33.0); Mean Corpuscular Volume 86.1 fL (80.0-98.0); Mean Platelet Volume 10.7 fL (9.4-12.3); Monocytes Absolute Auto 0.5 X10*3/uL (0.1-1.2); Monocytes Percent Auto 6.3 % (2-11); Neutrophils Percent Auto 81.1 % (45-73); Nitrite Urine Negative (Negative); PH 5.5 (5.0-9.0); Platelet Count 175 X10*3/uL (160-400); Red Blood Count 4.97 X10*6/uL (4.20-5.50); Specific Gravity - Urine >= 1.030 (1.005-1.025); UMIC TRIGGER UACC YES; Urine Blood Large (3+) (Negative); Urine Ketones Negative (Negative); Urine Protein 30 (1+) mg/dL (Neg-Trace); White Blood Count 7.4 X10*3/uL (4.8-10.8)
[2023-11-18 10:48] LABS: Bacteria Urine None Seen (None Seen); Hyaline Casts Urine 0-2 /LPF (0-2); RBC Urine >20 /HPF (0-2); Squamous Epithelial Cell Urine 0-2 /HPF (0-2); UACC Culture Trigger YES; WBC Clumps Urine Present; WBC Urine >50 /HPF (0-5)
[2023-11-18 10:52] LABS: Alanine Aminotransferase 13 U/L (0-31); Albumin Level 4.4 g/dL (3.5-5.0); Alkaline Phosphatase 82 U/L (39-117); Anion Gap 13 (12-20); Aspartate Amino Transferase 17 U/L (5-31); Bilirubin Total 0.6 mg/dL (0.0-1.0); Blood Urea Nitrogen 22 mg/dL (9-16); Calcium 10.3 mg/dL (8.4-10.2); Carbon Dioxide 25 mmol/L (22-29); Chloride 107 mmol/L (96-108); Creatinine Clr Calc Pharmacy 39.7; Estimated Glomerular Filt Rate 38; Glucose Random 116 mg/dL (60-115); Potassium 3.9 mmol/L (3.3-5.1); Sodium 141 mmol/L (135-145); Total Protein 7.4 g/dL (6.5-8.0)
--- NOTE | 2023-11-18 11:08 | MHC.EDTECH ---
pt has fistula in left arm, no blood pressure/venipuncture left side, sign placed in room
--- NOTE | 2023-11-18 13:17 | ED_ITS ---
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 Patient states that over the last 2 days she has had dysuria, increased frequency and blood in her urine. Patient denies any fevers, chills, chest pain, shortness breath, abdominal pain, nausea, vomiting or diarrhea. MD elicited complaint: dysuria and UTI Onset (ago): day(s) Severity: moderate Consistency: constant Vaginal discharge: none Vaginal bleeding: none Urinary symptoms: Dysuria, Urgency, Frequency and Hematuria Exacerbating factors: none Relieving factors: none Associated symptoms: denies other symptoms Treatment prior to arrival: none Sexual activity: No Related Data Home Medications ?Medication ?Instructions ?Recorded ?Confirmed mycophenolate sodium 180 mg 540 mg PO BID 06/20/20 10/04/23 tablet,delayed release tacrolimus 1 mg capsule, 0 mg PO 05/04/22 10/04/23 immediate-release imiquimod 5 % topical cream packet 1 appl topical 5XW 12/10/22 10/04/23 albuterol sulfate 90 mcg/actuation inhalation 04/02/23 10/04/23 aerosol inhaler (Ventolin HFA) fluticasone propionate 50 1 spray intranasal BID 04/02/23 10/04/23 mcg/actuation nasal spray,suspension doxycycline hyclate 100 mg tablet 100 mg PO BID 04/05/23 10/04/23 lubiprostone 24 mcg capsule 24 mcg PO DAILY 10/04/23 10/04/23 (Amitiza) Previous Rx's ?Medication ?Instructions ?Recorded blood-glucose meter (FreeStyle #1 ea 09/10/21 Lite Meter kit) cholecalciferol (vitamin D3) 25 25 mcg PO DAILY 90 days #90 caps 07/16/22 mcg (1,000 unit) capsule erythromycin 5 mg/gram (0.5 %) eye 0.5 inch ophthalmic (eye) TID 5 09/08/22 ointment days #3.5 grams phenazopyridine 200 mg tablet 200 mg PO TID 2 days #6 tabs 04/03/23 (Pyridium) labetalol 200 mg tablet 200 mg PO BID 90 days #180 tabs 07/05/23 alcohol swabs (Alcohol Prep Pads) 1 pad topical BID #200 ea 07/23/23 lancets 28 gauge (FreeStyle #100 ea 07/23/23 Lancets) blood sugar diagnostic (FreeStyle #100 ea 08/30/23 Lite Strips) oxycodone 5 mg tablet 5 mg PO BID PRN pain 28 days #56 08/30/23 tabs lubiprostone 24 mcg capsule 24 mcg PO BID #60 caps 09/27/23 (Amitiza) empagliflozin 10 mg tablet 10 mg PO DAILY 90 days #90 tabs 10/04/23 (Jardiance) metformin 500 mg tablet,extended 500 mg PO BID 90 days #180 tabs 10/04/23 release 24 hr trazodone 100 mg tablet 100 mg PO BEDTIME PRN sleep 90 10/04/23 days #90 tabs atorvastatin 40 mg tablet 40 mg PO BEDTIME 90 days #90 tabs 10/11/23 nifedipine 60 mg tablet,extended 60 mg PO DAILY 90 days #90 tabs 10/18/23 release 24 hr cefuroxime axetil 250 mg tablet 250 mg PO BID 7 days #13 tabs 11/18/23 Allergies Allergy/AdvReac Type Severity Reaction Status Date / Time amlodipine AdvReac Intermediate leg edema Verified 11/18/23 09:48 morphine AdvReac Mild Rash Verified 11/18/23 09:48 Review of Systems 2 Review of Systems: Yes all other systems are reviewed and are negative Constitutional: Constitutional: Reports as per [facility] Past Medical History Attestation statement: The following information was validated with the patient. Medical History Malnutrition Diabetes mellitus Right ankle pain Left ankle pain Fatigue Hair loss Back pain Pancreatic lesion Pneumonia due to COVID-19 virus Essential hypertension Surgical History History of esophagogastroduodenoscopy (EGD) Hx of colonoscopy Kidney transplant recipient AV fistula Kidney transplant status History of tubal ligation History of foot surgery History of lipoma History of benign breast tumor Family History Family History Father CVD (cardiovascular disease) Prostate cancer Mother No problems noted. Social History Social History Household Members: Children Housing: Apartment Alcohol intake: never Patient Tobacco Use Status: Former Tobacco user Tobacco use type: Cigarette Smoked in Last 30 Days: No e-Cigarette/Vaping Use: Never Used Second Hand Smoke Exposure: No Use of substances other than those prescribed or required for medical reasons: No Advance Directives: No Advance Directives Information Provided: Yes Patient : No service: No Current occupational status: unemployed Cognitive needs: No Hearing needs: No Vision needs: Yes Physical Exam 2 Vital Signs: Vital Signs: Last Vital Signs Temp 98.6 F 11/18/23 16:30 Pulse 86 11/18/23 16:30 Resp 12 11/18/23 16:30 BP 102/62 11/18/23 16:30 Pulse Ox 97 11/18/23 16:30 O2 Del Method Room Air 11/18/23 16:30 BMI result Body Mass Index 33.4 Const: General: cooperative, comfortable and no acute distress O rientation/consciousness: patient oriented x3 Limitations: no limitations HEENT: Head: Yes normal to inspection, Yes normocephalic and Yes atraumatic Ears: hearing grossly normal bilaterally General nose exam: Normal external nose present Face and sinus: Yes normal facial exam Mouth: Normal oral and palatal mucosa present, oropharynx normal and moist mucous membranes Throat: Yes posterior oropharynx normal Eyes: General: appearance normal, both eyes and all related structures E yelids: Yes eyelids normal Conjunctivae: conjunctivae normal Sclerae: s clerae normal Pupils: Equal, round and reactive pupils present EOM: EOMs intact bilaterally Neck: Neck: Yes normal visual inspection, Yes full ROM and Yes no lymphadenopathy Lymphatic: no lymphadenopathy noted Chest: Chest palpation & inspection: normal inspection of the chest Resp: Effort & Inspection: normal respiratory effort and able to speak in complete sentences Auscultation: clear to auscultation bilaterally, no crackles, no rales, no rhonchi and no wheezes Cardio: Rate: regular rate Rhythm: regular rhythm Heart sounds: S1 normal heart sound present and S2 normal heart sound present GI: Other: Tenderness palpation in the suprapubic region, no rebound or guarding. Normoactive bowel sounds present in all 4 quadrants Inspection: Yes normal to inspection Skin: General skin exam: no rashes or lesions noted Trauma: no lacerations or abrasions Wounds: no wounds Neuro: General: patient oriented x3 and moves all extremities Cranial nerves: Yes Equal, round and reactive pupils present Extrem: General: Yes normal to inspection Right upper extremity: normal to inspection Left upper extremity: normal to inspection Right lower extremity: normal to inspection Left lower extremity: normal to inspection Course Reevaluation(s) Reevaluation #1: Blood work returns, patient has slight SAM with a creatinine of 1.44, she has had this level in the past however of recent has had lower creatinine. Will give 1 L of IV fluids as well as 1st dose of antibiotic as she appears to have a urinary tract infection. CT abdomen and pelvis does not show any abnormalities to suggest her pain. No hydronephrosis or obstructive pathology. Patient remains comfortable, speaking in full sentences, and under no acute distress. She has had urinary frequency throughout the visit she has had. I discussed possible treatment with Pyridium however given creatinine clearance and estimated GFR, this is contraindicated. I discussed this with patient who understands and agrees with this plan. 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 Will administer the 1 L fluids, antibiotic. She was given return precautions. Time: 16:27 Medications Administered Generic Name Dose Route Start Last Admin Trade Name Freq PRN Reason Stop Dose Admin Sodium Chloride 1,000 mls @ 999 mls/hr 11/18/23 16:17 11/18/23 16:52 Ns IV 11/18/23 17:17 999 mls/hr .Q1H1M ONE Administration Discontinued Medications Generic Name Dose Route Start Last Admin Trade Name Freq PRN Reason Stop Dose Admin Cefuroxime Axetil 250 mg 11/18/23 16:18 11/18/23 16:53 Cefuroxime Axetil 250 Mg Tablet PO 11/18/23 16:19 250 mg ONCE ONE Administration Medical Decision Making Medical Decision Making [facility] Narrative: This is a 58-year-old Macedonian-speaking female, with a history of a right kidney transplant in 2017 performed by [facility], who presents emergency department with complaints of 2 days of dysuria, hematuria, urinary frequency and urgency. On arrival, vital signs within normal limits. She is nontoxic appearing speaking full sentences. She is afebrile. On examination, she does have suprapubic tenderness on exam, no rebound or guarding. Differential diagnoses include pyelonephritis, hydronephrosis, obstructive uropathy, UTI, SAM. Given history of kidney transplant, will obtain CT to ensure no obstructive pathology. Plan: UA, CT abdomen and pelvis, blood work Differential Diagnosis Differential Diagnoses: The differential diagnosis associated with the presentation includes See above Admission/Observation Consideration of admission/observation: Escalation of care including admission/observation considered Escalation of care including admission/observation considered however given workup today not warranted at this time. Lab Data MDM Lab Attestation statement: I reviewed the patient's lab results. No leukocytosis, stable H&H, creatinine elevated at 1.44 with an elevated BUN. Slight SAM, however patient has had similar creatinine levels in the past. Urine with small leuk esterases, rbc's, wbc's. 11/18/23 10:29 11/18/23 10:29 Labs: Lab Results 11/18/23 Range/Units 10:29 WBC 7.4 (4.8-10.8) X10*3/uL RBC 4.97 (4.20-5.50) X10*6/uL Hgb 14.3 (12.0-16.0) g/dl Hct 42.8 (37.0-47.0) % MCV 86.1 (80.0-98.0) fL MCH 28.8 (27.0-33.0) pg MCHC 33.4 (31.0-35.0) g/dl RDW 13.0 (11.0-16.0) % Plt Count 175 (160-400) X10*3/uL MPV 10.7 (9.4-12.3) fL Immature Gran % (Auto) 0.4 (0.0-0.4) % Neut % (Auto) 81.1 H (45-73) % Lymph % (Auto) 10.6 L (20-40) % [place] % (Auto) 6.3 (2-11) % Eos % (Auto) 1.2 (0-4) % Baso % (Auto) 0.4 (0-2) % Lymph # (Auto) 0.8 L (1.2-4.9) X10*3/uL [place] # (Auto) 0.5 (0.1-1.2) X10*3/uL Eos # (Auto) 0.1 (0.0-0.4) X10*3/uL Baso # (Auto) 0.0 (0.0-0.2) X10*3/uL Abs Immat Gran (auto) 0.03 (0.00-0.03) X10*3/uL Absolute Neuts (auto) 6.0 (2.0-8.3) x10*3/uL Absolute Nucleated RBC 0.000 (0.0-0.012) X10*3/uL Nucleated RBC % (auto) 0.0 (0.0-0.2) /100WBC Sodium 141 (135-145) mmol/L Potassium 3.9 (3.3-5.1) mmol/L Chloride 107 (96-108) mmol/L Carbon Dioxide 25 (22-29) mmol/L Anion Gap 13 (12-20) BUN 22 H (9-16) mg/dL Creatinine 1.44 H (0.5-1.4) mg/dL Estim Creat Clear Calc 39.7 Estimated GFR 38 Random Glucose 116 H (60-115) mg/dL Calcium 10.3 H (8.4-10.2) mg/dL Total Bilirubin 0.6 (0.0-1.0) mg/dL AST 17 (5-31) U/L ALT 13 (0-31) U/L Alkaline Phosphatase 82 (39-117) U/L Total Protein 7.4 (6.5-8.0) g/dL Albumin 4.4 (3.5-5.0) g/dL Urine Color Yellow Urine Appearance Cloudy Urine pH 5.5 (5.0-9.0) Ur Specific [place] >= 1.030 H (1.005-1.025) Urine Protein 30 (1+) H (Neg-Trace) mg/dL Urine Glucose (UA) >=1000 H (Negative) mg/dL Urine Ketones Negative (Negative) mg/dL Urine Blood Large (3+) H (Negative) Urine Nitrite Negative (Negative) Ur Leukocyte Esterase Small (1+) H (Negative) Urine RBC >20 H (0-2) /HPF Urine WBC >50 H (0-5) /HPF Urine WBC Clumps Present Ur Squamous Epith Cells 0-2 (0-2) /HPF Urine Bacteria None Seen (None Seen) Hyaline Casts 0-2 (0-2) /LPF Radiology Impression Discussion of test interpretation with radiology: I have reviewed the radiologist's reading. Radiologist Impression: CT/CT abdomen pelvis wo IV con IMPRESSION: 1. A cause for the patient's right flank pain has not been found. 2. There is autosomal dominant polycystic kidney disease with right iliac fossa transplant kidney without hydronephrosis, nephrolithiasis or peritransplant fluid collections. 3. Incidental note made of trace bilateral pleural effusions, sigmoid diverticulosis without diverticulitis and benign hepatic cysts. Fleischner guidelines were followed. Dictated By: Calos Guillory MD Discharge Plan Discharge Clinical Impression: Urinary tract infection Qualifiers: Urinary tract infection type: acute cystitis Hematuria presence: with hematuria Qualified Code(s): N30.01 - Acute cystitis with hematuria Patient Disposition: Home, Self-Care Instructions: Urinary Tract Infection in Women (ED) Additional Instructions: You were seen in the emergency department due to pain with urination, and urinary frequency. You have a urinary tract infection. Please take prescribed antibiotic as directed. Drink plenty of fluids get plenty of rest. 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 We will call you if we need to switch your antibiotic. If any new or worsening symptoms occur including but not limited to fevers, chills, worsening pain, chest pain, or shortness of breath, please return for re-evaluation. Prescriptions: New cefuroxime axetil 250 mg tablet 250 mg PO BID 7 Days Qty: 13 0RF Rx Instructions: first dose taken in ER at 1700 on 11/18/2023 No Action (DME) blood-glucose meter [FreeStyle Lite Meter] Kit See Rx Instructions .Route Qty: 1 0RF Rx Instructions: As directed labetalol 200 mg tablet 200 mg PO BID 90 Days Qty: 180 1RF (DME) lancets [FreeStyle Lancets] 28 gauge misc See Rx Instructions .Route Qty: 100 2RF Rx Instructions: Use 1 lancet once a day alcohol swabs [Alcohol Prep Pads] Pads, Medicated 1 pad topical BID Qty: 200 0RF (DME) FreeStyle Lite Strips Strip See Rx Instructions .Route Qty: 100 2RF Rx Instructions: Use 1 test strip once a day oxycodone 5 mg tablet 5 mg PO BID PRN (Reason: pain) 28 Days Qty: 56 0RF Rx Instructions: Partial Fill upon patient request. lubiprostone [Amitiza] 24 mcg capsule 24 mcg PO BID Qty: 60 3RF atorvastatin 40 mg tablet 40 mg PO BEDTIME 90 Days Qty: 90 1RF nifedipine 60 mg tablet extended release 24hr 60 mg PO DAILY 90 Days Qty: 90 1RF phenazopyridine [Pyridium] 200 mg tablet 200 mg PO TID 2 Days Qty: 6 0RF erythromycin 5 mg/gram (0.5 %) ointment 0.5 inch ophthalmic (eye) TID 5 Days Qty: 3.5 0RF mycophenolate sodium 180 mg tablet,delayed release (DR/EC) 540 mg PO BID Rx Instructions: 3 tabs at am and 2 tabs at pm cholecalciferol (vitamin D3) 25 mcg (1,000 unit) capsule 25 mcg PO DAILY 90 Days Qty: 90 1RF imiquimod 5 % cream in packet 1 appl topical 5XW metformin 500 mg tablet extended release 24 hr 500 mg PO BID 90 Days Qty: 180 1RF Jardiance 10 mg tablet 10 mg PO DAILY 90 Days Qty: 90 0RF trazodone 100 mg tablet 100 mg PO BEDTIME PRN (Reason: sleep) 90 Days Qty: 90 0RF lubiprostone [Amitiza] 24 mcg capsule 24 mcg PO DAILY doxycycline hyclate 100 mg tablet 100 mg PO BID tacrolimus 1 mg capsule 0 mg PO fluticasone propionate 50 mcg/actuation spray,suspension 1 spray intranasal BID albuterol sulfate [Ventolin HFA] 90 mcg/actuation HFA aerosol inhaler inhalation Print Language: Macedonian
[2023-11-18] MEDS: 0.9 % Sodium Chloride 1,000 ML 999 ML IV (16:52)
[2023-11-18] MEDS: cefuroxime axetiL 250 MG TABLET PO (16:53)
== END 2023-11-18 18:35 | disposition home or self-care (01) ==
PROVIDERS: Emergency Provider Emergency Medicine; PCP Internal Medicine
DX: N30.01 Acute cystitis with hematuria (principal); R30.0 Dysuria; E11.9 Type 2 diabetes mellitus without complications; I10 Essential (primary) hypertension; E78.5 Hyperlipidemia, unspecified; Z94.0 Kidney transplant status; Z79.02 Long term (current) use of antithrombotics/antiplatelets; Z79.84 Long term (current) use of oral hypoglycemic drugs; Z87.891 Personal history of nicotine dependence
CPT/HCPCS: 36415; 74176; 80053; 81001; 85025; 87086; 87088; 87186; 96360; 96361; 99284; 99285

== ENCOUNTER 2023-11-29 08:54 | Outpatient (REF) | payer OTHER, SELFPAY ==
--- NOTE | ~2023-11-29 | FL_ITS ---
EXAMINATION: XR FLUOROSCOPY UPPER GI WITH AIR CLINICAL INFORMATION: Epigastric pain COMPARISON: None TECHNIQUE: Fluoroscopic air contrast upper GI examination was performed utilizing standard techniques with thin and thick barium and effervescent granules. Numerous spot images were obtained. FINDINGS: Dual and single contrast images of the esophagus demonstrate normal caliber, contour, and mucosal pattern. No evidence of stricture, mass, or ulcerations identified. Esophageal peristalsis was normal. A small type I hiatal hernia is present. A small amount gas esophageal reflux is seen in the midesophagus. Dual contrast and single contrast images of the stomach demonstrated normal contour and mucosal pattern without evidence of mass, ulceration, or other abnormality. Contrast freely passed into the gastric antrum and duodenal bulb without delay. Single and air-contrast images of the duodenal bulb demonstrate no abnormality. The duodenal sweep has a normal appearance, course, and mucosal fold appearance. There is a very tiny diverticulum in the second portion the duodenum. The imaged proximal jejunum has a normal fold pattern and caliber. FLUOROSCOPY TIME: 3 minutes 21 second Number of Spot Images: 7 Number of Cine: 19 DOSE AREA PRODUCT: 2630 uGy-m2 (microgray-meter squared) FL/FL upper GI series IMPRESSION: 1. Small type I hiatal hernia. 2. Mild gastroesophageal reflux 3. Very small diverticulum in the second portion of duodenum. This procedure was performed by Oleg Pierson PA-C, and supervised by Dr. Cooper
== END 2023-11-29 08:55 | disposition home or self-care (01) ==
LOC: HO.XRAY 08:54
PROVIDERS: PCP Internal Medicine; Visit Provider Internal Medicine
DX: R10.13 Epigastric pain (principal)
CPT/HCPCS: 74240

== ENCOUNTER → 2023-11-29 08:55 | Outpatient (BNV) | payer OTHER, SELFPAY | PROVIDERS: PCP Internal Medicine; Visit Provider Physician Assistant Surgical | DX: R10.13 Epigastric pain (principal) | CPT/HCPCS: 74246 ==

== ENCOUNTER 2024-02-11 09:42 | Outpatient (AMB) | payer OTHER, SELFPAY ==
--- NOTE | 2024-02-11 09:43 | MHC.OFFVIS ---
Vital Signs 02/11/24 09:47 Weight 165 lb 5.547 oz BP 123/60 Blood Pressure Location Rt brachial Position Sitting Pulse 69 Intake Visit Reasons: 6 month follow up Intake Note: Ginette presents in the office as a 6 month follow up. CC: She states that she was having stomach pains the other day and she states that she has both constipation. She does not have any blood when she has a BM. She had diarrhea a month ago but she feels like it was something that she ate at the time and she feels like she has constipation due to the medication she takes. When she eats she gets the pains in her stomach. New Car Inspector Required: Yes New Car Inspector Name: Brijesh [id number] Allergies amlodipine Adverse Reaction (Intermediate, Verified 11/18/23 09:48) leg edema morphine Adverse Reaction (Mild, Verified 11/18/23 09:48) Rash HPI HPI 6 month follow up: Details: 58 yr old f with hx of renal transplant 2/2 PCKD (on tacrolimus and mycophenolate) being?seen for / park interpreter used RECAP: Had been seeing Kaye Lambert issues: 1/ IBS-C 2/ GERD 3/constipation--tried linaclotide, amitiza, 2/2 to slow transit, opiates, CCB, and enlarged kidneys, possible pelvic flood dysfucntion colonoscopy 2017---diverticulosis, no other lesions 4/ suspected pancreas lesions I had seen her for left sided abdominal pain and ongoing chronic constipation referred to [facility] for ARM consideration given to gen on days she is taking opiates she has to manually disimpact, can be painful to pass she is on oxycodone for back pain, takes 2-3 times/week the abx I gave her did reduce her bloating and gas US 12/18--polycystic kidneys, hepatic cysts, ovarian cyst 4.3 cm EGD for epigastric pain: 12/2021 gastritis duodenitis esophagitis path: pos H pylori Colonoscopy: 08/2022--- TA, random colo bx neg h pylori breath test was neg on / INTERIM: she is still having issues with constipation not taking amitizia as recommended ie scheduled M,W F, she lost 3 family members, feeling stressed and depressed she had one episode of chills and diarrhea, thinks she ate something bad, but this resolved she still takes oxycodone everyday for sciatic pain she has some mild epigastric pain, she thinks passing stool helps it although delayed effect EXAM: GENERAL: The patient is well developed and nontoxic. VITAL SIGNS:see workflow HEENT: Nonicteric sclerae, PERRLA, EOMI. Oropharynx clear. Moist mucous membranes. Conjunctivae appear well perfused. No thyroid mass. CHEST: Chest wall is nontender. HEART: Regular rate and rhythm without murmurs. LUNGS: Clear to auscultation bilaterally. ABDOMEN: Soft, positive bowel sounds, mild tender epigastrium and around transplanted kidney, kidney palpable, no organomegaly.no flank tenderness SKIN: No rash, no excessive bruising, petechiae, or purpura. NEUROLOGIC: Cranial nerves II-XII intact without motor/sensory deficit. a/P; 1/ constipation- --also maybe SE of her other meds farhana CCB and oxycodone 2/ H pylori gastritis, cured PLAN: 1/ commence movantik,can still take amitizia as I told her before M,W,F 2/ if sx persist and has ongoing epigastric tenderness then EGD [facility] Medical History Malnutrition Diabetes mellitus Right ankle pain Left ankle pain Fatigue Hair loss Back pain Pancreatic lesion Pneumonia due to COVID-19 virus Essential hypertension Surgical History History of esophagogastroduodenoscopy (EGD) Hx of colonoscopy Kidney transplant recipient AV fistula Kidney transplant status History of tubal ligation History of foot surgery History of lipoma History of benign breast tumor Family History Father CVD (cardiovascular disease) Prostate cancer Mother No problems noted. Social History Household Members: Children Housing: Apartment Alcohol intake: never Patient Tobacco Use Status: Former Tobacco user Tobacco use type: Cigarette e-Cigarette/Vaping Use: Never Used Second Hand Smoke Exposure: No service: No Current occupational status: unemployed Cognitive needs: No Hearing needs: No Vision needs: Yes Physical Exam Vital Signs: Last Vital Signs Pulse 69 02/11/24 09:47 BP 123/60 02/11/24 09:47 Assessment & Plan Assessment & Plan (1) Epigastric pain: Code(s): R10.13 - Epigastric pain Category: Medical Plan: see above Medications: New naloxegol (Movantik) must be taken on empty stomach; no food 1 hr after or 2-3 hrs before dose 12.5 mg PO QAM 30 tabs 1RF Discontinued cefuroxime axetil first dose taken in ER at 1700 on 11/18/2023 Discontinued Reason: Patient Completed Course 250 mg PO BID 7 days 13 tabs 0RF lubiprostone (Amitiza) Discontinued Reason: Doctor's Order 24 mcg PO BID 60 caps 3RF Coding Level of Care Code Est Pt Level 3 (24267) Diagnoses Epigastric pain R10.13
[2024-02-11 09:47] VITALS: BP 123/60; PULSE 69
== END 2024-02-11 10:20 | disposition home or self-care (01) ==
PROVIDERS: PCP Internal Medicine; Visit Provider Internal Medicine Gastroenterology
DX: R10.13 Epigastric pain (principal)
CPT/HCPCS: 99213

== ENCOUNTER 2024-02-11 09:42 | Outpatient (REF) | payer OTHER, SELFPAY ==
[2024-02-11 10:28] LABS: MANUAL DIFF FLAG NO
[2024-02-11 11:09] LABS: Alanine Aminotransferase 15 U/L (0-31); Anion Gap 13 (12-20); Aspartate Amino Transferase 15 U/L (5-31); Blood Urea Nitrogen 22 mg/dL (9-16); Calcium 10.2 mg/dL (8.4-10.2); Carbon Dioxide 25 mmol/L (22-29); Chloride 108 mmol/L (96-108); Estimated Glomerular Filt Rate 34; Potassium 4.5 mmol/L (3.3-5.1); Sodium 141 mmol/L (135-145)
[2024-02-11 11:12] LABS: Appearance Urine Clear; Color Urine Yellow; Glucose Urine UA >=1000 mg/dL (Negative); Leukocyte Esterase Urine Small (1+) (Negative); Nitrite Urine Negative (Negative); PH 5.5 (5.0-9.0); Specific Gravity - Urine >= 1.030 (1.005-1.025); UMIC TRIGGER UACC YES; Urine Blood Negative (Negative); Urine Ketones Negative (Negative); Urine Protein Negative (Neg-Trace)
[2024-02-11 11:20] LABS: Bacteria Urine Trace (None Seen); Hyaline Casts Urine 0-2 /LPF (0-2); RBC Urine 0-2 /HPF (0-2); UACC Culture Trigger YES
[2024-02-11 11:22] LABS: Basophils Percent Auto 0.8 % (0-2); Eosinophils Absolute Auto 0.2 X10*3/uL (0.0-0.4); Eosinophils Percent Auto 4.6 % (0-4); Hematocrit 43.4 % (37.0-47.0); Hemoglobin 14.3 g/dl (12.0-16.0); Imm Gran Abs Auto 0.01 X10*3/uL (0.00-0.03); Imm Gran Pct Auto 0.2 % (0.0-0.4); Lymphocytes Absolute Auto 1.1 X10*3/uL (1.2-4.9); Lymphocytes Percent Auto 22.3 % (20-40); Mean Corpuscular HGB Conc 32.9 g/dl (31.0-35.0); Mean Corpuscular Hemoglobin 28.1 pg (27.0-33.0); Mean Corpuscular Volume 85.4 fL (80.0-98.0); Mean Platelet Volume 11.1 fL (9.4-12.3); Monocytes Absolute Auto 0.3 X10*3/uL (0.1-1.2); Monocytes Percent Auto 6.9 % (2-11); Neutrophils Absolute Auto 3.1 x10*3/uL (2.0-8.3); Neutrophils Percent Auto 65.2 % (45-73); Platelet Count 183 X10*3/uL (160-400); Red Blood Count 5.08 X10*6/uL (4.20-5.50); Red Cell Distribution Width 13.2 % (11.0-16.0); White Blood Count 4.8 X10*3/uL (4.8-10.8)
[2024-02-13 07:59] LABS: Tacrolimus Prograf 7.1 mcg/L
== END 2024-02-11 09:43 | disposition home or self-care (01) ==
LOC: HO.LAB 09:42
PROVIDERS: Dentist Pediatric Dentistry; PCP Internal Medicine; Referring Provider Physician Assistant; Visit Provider Internal Medicine Gastroenterology
DX: K59.00 Constipation, unspecified (principal); R10.13 Epigastric pain; Z94.0 Kidney transplant status; Z79.899 Other long term (current) drug therapy
CPT/HCPCS: 36415; 80051; 80197; 81001; 81003; 82310; 82550; 82565; 84450; 84460; 84520; 85025; 87086; 99212

== ENCOUNTER 2024-02-17 10:29 | Outpatient (AMB) | payer OTHER, SELFPAY ==
[2024-02-17 10:40] VITALS: BP 118/70; BMI 32.4
--- NOTE | 2024-02-17 10:40 | MHC.PC.OV ---
Vital Signs 02/17/24 10:40 Height 5 ft Weight 166 lb BMI 32.4 BP 118/70 Blood Pressure Location Lt brachial Position Sitting Intake Visit Reasons: dm Intake Note: Patient here for a follow up DM Van Helper Required: No Accompanied by: Self / Same As Patient Allergies amlodipine Adverse Reaction (Intermediate, Verified 02/17/24 11:00) leg edema morphine Adverse Reaction (Mild, Verified 02/17/24 11:00) Rash Medication List - Last Reconciled 02/17/24 by Jessica Dietz MD albuterol sulfate 90 mcg/actuation (Ventolin HFA) inhalation alcohol swabs (Alcohol Prep Pads) 1 pad topical BID atorvastatin 40 mg PO BEDTIME 90 days blood sugar diagnostic (FreeStyle Lite Strips) Use 1 test strip once a day blood-glucose meter (FreeStyle Lite Meter kit) As directed calcitriol mcg PO dapagliflozin propanediol (Farxiga) 10 mg PO DAILY fluticasone propionate 50 mcg/actuation 1 spray intranasal BID labetalol 200 mg PO BID 90 days lancets (FreeStyle Lancets) Use 1 lancet once a day lubiprostone (Amitiza) 24 mcg PO DAILY mycophenolate sodium 540 mg PO BID nifedipine ER 60 mg PO DAILY 90 days oxycodone 5 mg PO BID PRN 28 days tacrolimus 7 mg PO Tobacco use date assessed: 10/04/23 Dental Screening Dental Screen Date: 10/04/23 HPI HPI Comments History of Present Illness Details This is a 58-year-old female with diabetes mellitus type 2, hypertension, hyperlipidemia, GERD and chronic kidney disease stage 3 that comes today for follow-up on her conditions. A1c within goal but still says that blood glucose is in the 200s. I will add Tradjenta. Blood pressure stable. Lipid panel will be order and her LDL goal should be less than 70. Upper GI series shows GERD and is on PPIs and follow with Gastroenterology. Last GFR was 34 and her chronic kidney disease is follow by Nephrology. She had a kidney transplant due to adult polycystic kidney disease. No chest pain or shortness on breath. [facility] Medical History (Updated 02/17/24 @ 12:09 by Jessica Dietz MD) Malnutrition Diabetes mellitus Right ankle pain Left ankle pain Fatigue Hair loss Back pain Pancreatic lesion Pneumonia due to COVID-19 virus Essential hypertension Surgical History History of esophagogastroduodenoscopy (EGD) Hx of colonoscopy Kidney transplant recipient AV fistula Kidney transplant status History of tubal ligation History of foot surgery History of lipoma History of benign breast tumor Family History Father CVD (cardiovascular disease) Prostate cancer Mother No problems noted. Social History Household Members: Children Housing: Apartment Alcohol intake: never Patient Tobacco Use Status: Former Tobacco user Tobacco use type: Cigarette e-Cigarette/Vaping Use: Never Used Second Hand Smoke Exposure: No service: No Current occupational status: unemployed Cognitive needs: No Hearing needs: No Vision needs: Yes Questionnaire Thrive Questionnaire Date Thrive assessed: 10/04/23 Are you currently unemployed and looking for a job?: Yes JONNIE-7 AMB Questionnaire JONNIE-7 Date JONNIE - 7 assessed: 10/04/23 Source: Developed by Drs. Tereso Jones, Marilyn Cedeno, Homer Huston and colleagues, with an educational catrina from [employer]. Review of Systems Const All systems reviewed & are unremarkable except as noted in HPI and below Card Denies chest pain at rest, Denies chest pain with activity, Denies edema, Denies irregular heart rhythm, Denies claudication, Denies dyspnea, Denies dyspnea on exertion, Denies orthopnea, Denies paroxysmal nocturnal dyspnea and Denies slow heart rate Resp Denies cough, Denies dyspnea and Denies dyspnea on exertion Physical exam (Primary Care) Vital Signs: Last Vital Signs BP 118/70 02/17/24 10:40 BMI result Body Mass Index 32.4 BMI Assessment/Plan discussion: High BMI High, discussed plan: lifestyle, weight reduction, dietary and physical activity Tobacco/Smoking Status: Tobacco use Status Tobacco use date assessed 10/04/23 02/17/24 10:54 Patient Tobacco Use Status Former Tobacco user 02/17/24 10:54 Tobacco use type Cigarette 02/17/24 10:54 e-Cigarette/Vaping Use Never Used 02/17/24 10:54 Thrive Assessment: Date of Thrive Assessment Date Thrive assessed 10/04/23 02/17/24 10:54 Resp Effort & Inspection: normal respiratory effort Auscultation: clear to auscultation bilaterally Cardio Jugular venous distension: no JVD Rate: regular rate Rhythm: regular rhythm Heart sounds: S1 normal heart sound present and S2 normal heart sound present Extrem General: Yes full ROM Results AMB Hemoglobin A1c AMB Hemoglobin A1c 6.5 % Last Edit by RENEA Cooper on 02/17/24 11:09 Results Reviewed Results Reviewed: Laboratory Last Values Hgb A1c (Clinic) 6.5 % (4.0-6.0) H 02/17/24 11:05 Assessment and Plan Assessment & Plan (1) Diabetes mellitus: Code(s): E11.9 - Type 2 diabetes mellitus without complications Qualifiers: Diabetes mellitus type: type 2 Diabetes mellitus nursing home insulin use: without keno terminal operator use Diabetes mellitus complication status: with hyperglycemia Qualified Code(s): E11.65 - Type 2 diabetes mellitus with hyperglycemia Plan: Continue Farxiga. Start Tradjenta. A1c goal is equal or less than 7%. (2) Essential hypertension: Code(s): I10 - Essential (primary) hypertension Plan: Continue nifedipine. Blood pressure goal is equal or less than 130/80. (3) Hyperlipidemia LDL goal <70: Code(s): E78.5 - Hyperlipidemia, unspecified (4) GERD (gastroesophageal reflux disease): Code(s): K21.9 - Gastro-esophageal reflux disease without esophagitis Plan: Continue PPIs. (5) CKD (chronic kidney disease) stage 3, GFR 30-59 ml/min: Code(s): N18.30 - Chronic kidney disease, stage 3 unspecified Qualifiers: Chronic kidney disease stage 3 subtype: stage 3b (GFR 30-44) Qualified Code(s): N18.32 - Chronic kidney disease, stage 3b Plan: Keep blood pressure less than 130/80. Follow-up with nephrology. Orders: Orders AMB Hemoglobin A1c Today E11.9 - Type 2 diabetes mellitus without complications Lipid Panel Today E78.5 - Hyperlipidemia, unspecified Microalbumin, Random (w Creat) Today R80.9 - Proteinuria, unspecified Vitamin D 25-OH (D2 and D3) Today E55.9 - Vitamin D deficiency, unspecified Lipid Panel 4 Months E78.5 - Hyperlipidemia, unspecified Microalbumin, Random (w Creat) 4 Months R80.9 - Proteinuria, unspecified Comprehensive [place]. Panel Fast 4 Months E11.9 - Type 2 diabetes mellitus without complications Comprehensive [place]. Panel Fast Today N18.30 - Chronic kidney disease, stage 3 unspecified Medications: New linagliptin (Tradjenta) 5 mg PO DAILY 90 days 90 tabs 0RF Coding Level of Care Code Est Pt Level 4 (25202) Complex EM visit Add On G2211 Diagnoses Type 2 diabetes mellitus with hyperglycemia, without long-term current use of insulin E11.65 Diabetes mellitus type: type 2 Diabetes mellitus nursing home insulin use: without nursing home use Diabetes mellitus complication status: with hyperglycemia Essential hypertension I10 Hyperlipidemia LDL goal <70 E78.5 GERD (gastroesophageal reflux disease) K21.9 Stage 3b chronic kidney disease N18.32 Chronic kidney disease stage 3 subtype: stage 3b (GFR 30-44) Time Spent (min) 23
== END 2024-02-17 11:11 | disposition home or self-care (01) ==
PROVIDERS: PCP Internal Medicine; Visit Provider Internal Medicine
DX: I12.9 Hypertensive chronic kidney disease with stage 1 through stage 4 chronic kidney disease, or unspecified chronic kidney disease (principal); E11.65 Type 2 diabetes mellitus with hyperglycemia; N18.32 Chronic kidney disease, stage 3b; E11.22 Type 2 diabetes mellitus with diabetic chronic kidney disease; E78.5 Hyperlipidemia, unspecified; K21.9 Gastro-esophageal reflux disease without esophagitis

== ENCOUNTER → 2024-02-17 10:29 | Outpatient (BNVA) | payer OTHER, SELFPAY | PROVIDERS: PCP Internal Medicine; Visit Provider Internal Medicine | DX: E11.65 Type 2 diabetes mellitus with hyperglycemia (principal); I12.9 Hypertensive chronic kidney disease with stage 1 through stage 4 chronic kidney disease, or unspecified chronic kidney disease; E11.22 Type 2 diabetes mellitus with diabetic chronic kidney disease; N18.32 Chronic kidney disease, stage 3b; E78.5 Hyperlipidemia, unspecified; K21.9 Gastro-esophageal reflux disease without esophagitis; Z79.899 Other long term (current) drug therapy | CPT/HCPCS: 83036; 99212 ==

== ENCOUNTER 2024-04-10 10:07 | Outpatient (AMB) | payer OTHER, SELFPAY ==
--- NOTE | 2024-04-10 10:11 | A.OFFPC_ITS ---
Vital Signs 04/10/24 10:12 Height 5 ft Weight 165 lb BMI 32.2 BP 128/80 Blood Pressure Location Lt brachial Position Sitting Intake Visit Reasons: Annual Exam Intake Note: Patient here for an annual physical exam Director Of Planning Required: No Accompanied by: Self / Same As Patient Allergies amlodipine Adverse Reaction (Intermediate, Verified 04/10/24 10:25) leg edema morphine Adverse Reaction (Mild, Verified 04/10/24 10:25) Rash Medication List - Last Reconciled 04/10/24 by Jessica Dietz MD albuterol sulfate 90 mcg/actuation (Ventolin HFA) inhalation alcohol swabs (Alcohol Prep Pads) 1 pad topical BID atorvastatin 40 mg PO BEDTIME 90 days blood sugar diagnostic (FreeStyle Lite Strips) Use 1 test strip once a day blood-glucose meter (FreeStyle Lite Meter kit) As directed calcitriol mcg PO dapagliflozin propanediol (Farxiga) 10 mg PO DAILY fluticasone propionate 50 mcg/actuation 1 spray intranasal BID labetalol 200 mg PO BID 90 days lancets (FreeStyle Lancets) Use 1 lancet once a day linagliptin (Tradjenta) 5 mg PO DAILY 90 days lubiprostone (Amitiza) 24 mcg PO DAILY mycophenolate sodium 540 mg PO BID nifedipine ER 60 mg PO DAILY 90 days oxycodone 5 mg PO BID PRN 28 days tacrolimus 7 mg PO Tobacco use date assessed: 10/04/23 Dental Screening Dental Screen Date: 04/10/24 Did you have a dental visit in the last 12 months?: No Did you have a dental problem in the last 6 months where you did not have access to dental care?: No Was dental information given to patient?: Patient has dentist HPI HPI Comments History of Present Illness Details This is a 58-year-old female with diabetes mellitus type 2 on chronic kidney disease stage 3 that comes today for her physical exam. Last A1c was within goal. Diabetic eye exam done this year. Mammogram done 2023. Colonoscopy done 2021. Has an appointment with OBGYN for Pap smear this year. No chest pain or shortness on breath. Complains of muscle cramps in legs that started few weeks ago. DEXA scan was order as her last menses was over 2 years ago. [facility] Medical History Malnutrition Diabetes mellitus Right ankle pain Left ankle pain Fatigue Hair loss Back pain Pancreatic lesion Pneumonia due to COVID-19 virus Essential hypertension Surgical History History of esophagogastroduodenoscopy (EGD) Hx of colonoscopy Kidney transplant recipient AV fistula Kidney transplant status History of tubal ligation History of foot surgery History of lipoma History of benign breast tumor Family History Father CVD (cardiovascular disease) Prostate cancer Mother No problems noted. Social History Household Members: Children Housing: Apartment Alcohol intake: never Patient Tobacco Use Status: Former Tobacco user Tobacco use type: Cigarette e-Cigarette/Vaping Use: Never Used Second Hand Smoke Exposure: No service: No Current occupational status: unemployed Cognitive needs: No Hearing needs: No Vision needs: Yes Questionnaire Thrive Questionnaire Date Thrive assessed: 10/04/23 Are you currently unemployed and looking for a job?: Yes JONNIE-7 AMB Questionnaire JONNIE-7 Date JONNIE - 7 assessed: 10/04/23 Source: Developed by Drs. Tereso Jones, Marilyn Cedeno, Homer Huston and colleagues, with an educational catrina from [employer]. Review of Systems Const All systems reviewed & are unremarkable except as noted in HPI and below Card Denies chest pain at rest, Denies chest pain with activity, Denies edema, Denies irregular heart rhythm, Denies claudication, Denies dyspnea, Denies dyspnea on exertion, Denies orthopnea, Denies paroxysmal nocturnal dyspnea and Denies slow heart rate Resp Denies cough, Denies dyspnea and Denies dyspnea on exertion GI Denies abdominal pain, Denies change in bowel habits, Denies excessive flatus, Denies nausea and Denies vomiting Denies urinary incontinence, Denies urinary hesitancy and Denies urinary urgency Musc Denies abnormal gait, Denies atrophy, Denies deformity, Denies limited range of motion and Reports muscle cramps Skin/Breast Denies bleeding lesions, Denies changing lesions and Denies rash Neuro Denies abnormal gait, Denies behavioral changes and Denies lack of coordination Psych Denies behavioral changes Physical exam (Primary Care) Vital Signs: Last Vital Signs BP 128/80 04/10/24 10:12 BMI result Body Mass Index 32.2 BMI Assessment/Plan discussion: High BMI High, discussed plan: lifestyle, weight reduction, dietary and physical activity Tobacco/Smoking Status: Tobacco use Status Tobacco use date assessed 10/04/23 04/10/24 10:14 Patient Tobacco Use Status Former Tobacco user 04/10/24 10:14 Tobacco use type Cigarette 04/10/24 10:14 e-Cigarette/Vaping Use Never Used 04/10/24 10:14 Thrive Assessment: Date of Thrive Assessment Date Thrive assessed 10/04/23 04/10/24 10:14 HENMT Head: Yes normal to inspection, Yes normocephalic and Yes atraumatic Ears: external ears normal Eyes General: appearance normal, both eyes and all related structures Eyelids: Yes eyelids normal Conjunctivae: conjunctivae normal Neck Neck: Yes normal visual inspection and Yes supple Resp Effort & Inspection: normal respiratory effort Auscultation: clear to auscultation bilaterally Cardio Jugular venous distension: no JVD Rate: regular rate Rhythm: regular rhythm Heart sounds: S1 normal heart sound present and S2 normal heart sound present GI Inspection: Yes normal to inspection Palpation (GI): Soft to palpation and nontender Auscultation: normal bowel sounds Skin General skin exam: no rashes or lesions noted Neuro General: no focal motor deficits Extrem General: Yes full ROM Psych Appearance: grossly normal Office Procedures Flu Questionnaire Does the patient have a severe egg allergy?: No Does the patient have severe life threatening allergies?: No Does the patient have a fever or illness today?: No Has the patient ever had Guillain-Claverack Syndrome?: No Has the patient ever had any past reaction to a flu shot?: No Immunizations Fluarix Triv [id number] (PF) 45 mcg (15 mcg x 3)/0.5 mL IM syringe Performing Provider: Jessica Dietz MD Performing [facility] [place] [facility] Administered by: RENEA Cooper on 04/10/24 10:43 Dose Route Admin Location Dispensed Lot Number Expiration Date [facility] Client Service Representative 0.5 mL IM Right Deltoid 0.5 mL [id number] 11/27/24 05729-907-02 Fair Observer VIS Given Date VIS Provided VIS Publication Date 04/10/24 Single Vaccine 21 Eligibility Eligibility Date Funding Source Not [facility] Eligible 04/10/24 Private Coding Level of Care Code Est Pt Level 3 (43900) Est Pt Prev Care 40-64y(77719) Diagnoses Physical exam Z00.00 Stage 3b chronic kidney disease N18.32 Chronic kidney disease stage 3 subtype: stage 3b (GFR 30-44) Type 2 diabetes mellitus with hyperglycemia, without long-term current use of insulin E11.65 Diabetes mellitus complication status: with hyperglycemia Diabetes mellitus terminal gauger supervisor insulin use: without alf use Diabetes mellitus type: type 2 Muscle cramps R25.2 Time Spent (min) 35 Assessment & Plan Assessment & Plan (1) Physical exam: Code(s): Z00.00 - Encounter for general adult medical examination without abnormal findings Category: Medical Plan: Repeat in a year. (2) CKD (chronic kidney disease) stage 3, GFR 30-59 ml/min: Code(s): N18.30 - Chronic kidney disease, stage 3 unspecified Category: Medical Qualifiers: Chronic kidney disease stage 3 subtype: stage 3b (GFR 30-44) Qualified Code(s): N18.32 - Chronic kidney disease, stage 3b Plan: Follow-up with nephrology. Avoid NSAIDs. Keep blood pressure less than 130/80. (3) Diabetes mellitus: Code(s): E11.9 - Type 2 diabetes mellitus without complications Category: Medical Qualifiers: Diabetes mellitus complication status: with hyperglycemia Diabetes mellitus alf insulin use: without terminal gauger supervisor use Diabetes mellitus type: type 2 Qualified Code(s): E11.65 - Type 2 diabetes mellitus with hyperglycemia Plan: Continue Tradjenta. A1c goal is equal or less than 7%. (4) Muscle cramps: Code(s): R25.2 - Cramp and spasm Category: Medical Plan: Magnesium ordered. Orders: Orders XR DEXA axial skeleton Today Z78.0 - Asymptomatic menopausal state Vitamin D 25-OH Total Today E55.9 - Vitamin D deficiency, unspecified Complete Blood Count Auto Diff Today D64.9 - Anemia, unspecified Vitamin B12 and Folate Today E53.8 - Deficiency of other specified B group vitamins Magnesium Today R25.2 - Cramp and spasm Lipid Panel Today E78.5 - Hyperlipidemia, unspecified Microalbumin, Random (w Creat) Today R80.9 - Proteinuria, unspecified Comprehensive [place]. Panel Fast Today N18.32 - Chronic kidney disease, stage 3b IRON PROFILE Today D64.9 - Anemia, unspecified Influenza [id number] Immunization Today Z23 - Encounter for immunization
[2024-04-10 10:12] VITALS: BP 128/80; BMI 32.2
== END 2024-04-10 11:35 | disposition home or self-care (01) ==
PROVIDERS: PCP Internal Medicine; Visit Provider Internal Medicine
DX: Z00.00 Encounter for general adult medical examination without abnormal findings (principal); N18.32 Chronic kidney disease, stage 3b; E11.65 Type 2 diabetes mellitus with hyperglycemia; R25.2 Cramp and spasm

== ENCOUNTER 2024-04-10 10:07 | Outpatient (REF) | payer OTHER, SELFPAY ==
[2024-04-10 11:06] LABS: MANUAL DIFF FLAG NO
[2024-04-10 11:33] LABS: Basophils Percent Auto 0.6 % (0-2); Eosinophils Absolute Auto 0.2 X10*3/uL (0.0-0.4); Eosinophils Percent Auto 4.5 % (0-4); Hematocrit 42.4 % (37.0-47.0); Imm Gran Abs Auto 0.01 X10*3/uL (0.00-0.03); Imm Gran Pct Auto 0.2 % (0.0-0.4); Lymphocytes Absolute Auto 0.7 X10*3/uL (1.2-4.9); Lymphocytes Percent Auto 14.4 % (20-40); Mean Corpuscular Hemoglobin 27.8 pg (27.0-33.0); Mean Corpuscular Volume 84.3 fL (80.0-98.0); Mean Platelet Volume 10.7 fL (9.4-12.3); Monocytes Absolute Auto 0.3 X10*3/uL (0.1-1.2); Monocytes Percent Auto 5.7 % (2-11); Neutrophils Absolute Auto 3.7 x10*3/uL (2.0-8.3); Neutrophils Percent Auto 74.6 % (45-73); Platelet Count 166 X10*3/uL (160-400); Red Blood Count 5.03 X10*6/uL (4.20-5.50); Red Cell Distribution Width 13.1 % (11.0-16.0); White Blood Count 4.9 X10*3/uL (4.8-10.8)
[2024-04-10 11:58] LABS: Alanine Aminotransferase 22 U/L (0-31); Albumin Level 4.5 g/dL (3.5-5.0); Alkaline Phosphatase 70 U/L (39-117); Anion Gap 13 (12-20); Aspartate Amino Transferase 25 U/L (5-31); Bilirubin Total 0.4 mg/dL (0.0-1.0); Blood Urea Nitrogen 19 mg/dL (9-16); Calcium 9.7 mg/dL (8.4-10.2); Carbon Dioxide 24 mmol/L (22-29); Chloride 108 mmol/L (96-108); Cholesterol 151 mg/dL (<200); Estimated Glomerular Filt Rate 42; Glucose Fasting 126 mg/dL (60-99); HDL Cholesterol 38 mg/dL (>40); Iron 49 mcg/dL (30-160); LDL Cholesterol Calculated 70 mg/dL (<100); Magnesium 1.9 mg/dL (1.6-2.6); Percent Iron Saturation 20 % (15-50); Sodium 141 mmol/L (135-145); Total Iron Binding Capacity 250 mcg/dL (228-428); Total Protein 7.5 g/dL (6.5-8.0); Triglycerides 217 mg/dL (<150); Unsaturated Iron Binding 201 ug/dL
[2024-04-10 12:12] LABS: Vitamin D 25-OH Total 42.9 ng/mL (>30)
[2024-04-10 12:21] LABS: Folate 11.6 ng/mL (> or = 4.0); Vitamin B12 453 pg/mL (200-900)
[2024-04-10 12:53] LABS: Creatinine Urine 92.53 mg/dL; Microalbum/Creatinine Ratio Ur 75.6 ug/mg cr (<30)
[2024-04-14 18:18] LABS: Vitamin D 25-OH, D2 <4 ng/mL; Vitamin D 25-OH, D3 42 ng/mL; Vitamin D 25-OH, Total 42 ng/mL (30-100)
== END 2024-04-10 10:08 | disposition home or self-care (01) ==
LOC: HO.LAB 10:07
PROVIDERS: PCP Internal Medicine; Visit Provider Internal Medicine
DX: Z00.00 Encounter for general adult medical examination without abnormal findings (principal); Z23 Encounter for immunization; E11.65 Type 2 diabetes mellitus with hyperglycemia; E11.22 Type 2 diabetes mellitus with diabetic chronic kidney disease; I12.9 Hypertensive chronic kidney disease with stage 1 through stage 4 chronic kidney disease, or unspecified chronic kidney disease; N18.32 Chronic kidney disease, stage 3b; R25.2 Cramp and spasm; E55.9 Vitamin D deficiency, unspecified; D64.9 Anemia, unspecified; E53.8 Deficiency of other specified B group vitamins; E78.5 Hyperlipidemia, unspecified; R80.9 Proteinuria, unspecified; Z78.0 Asymptomatic menopausal state
CPT/HCPCS: 36415; 80053; 80061; 82043; 82306; 82570; 82607; 82746; 83540; 83735; 85025; 90471; 90656; 99212; 99396

== ENCOUNTER 2024-04-28 09:23 | Outpatient (REF) | payer OTHER, SELFPAY ==
[2024-04-28 09:54] LABS: MANUAL DIFF FLAG NO
[2024-04-28 10:23] LABS: Basophils Percent Auto 0.8 % (0-2); Eosinophils Absolute Auto 0.2 X10*3/uL (0.0-0.4); Eosinophils Percent Auto 2.8 % (0-4); Hematocrit 42.3 % (37.0-47.0); Hemoglobin 14.1 g/dl (12.0-16.0); Imm Gran Abs Auto 0.01 X10*3/uL (0.00-0.03); Imm Gran Pct Auto 0.2 % (0.0-0.4); Lymphocytes Absolute Auto 0.8 X10*3/uL (1.2-4.9); Mean Corpuscular HGB Conc 33.3 g/dl (31.0-35.0); Mean Corpuscular Hemoglobin 28.1 pg (27.0-33.0); Mean Corpuscular Volume 84.4 fL (80.0-98.0); Mean Platelet Volume 10.6 fL (9.4-12.3); Monocytes Absolute Auto 0.3 X10*3/uL (0.1-1.2); Monocytes Percent Auto 6.4 % (2-11); Neutrophils Percent Auto 74.8 % (45-73); Platelet Count 168 X10*3/uL (160-400); Red Blood Count 5.01 X10*6/uL (4.20-5.50); Red Cell Distribution Width 13.2 % (11.0-16.0); White Blood Count 5.3 X10*3/uL (4.8-10.8)
[2024-04-28 10:36] LABS: Appearance Urine Clear; Color Urine Yellow; Glucose Urine UA >=1000 mg/dL (Negative); Leukocyte Esterase Urine Small (1+) (Negative); Nitrite Urine Negative (Negative); PH 5.5 (5.0-9.0); Specific Gravity - Urine 1.025 (1.005-1.025); UMIC TRIGGER UACC YES; Urine Blood Negative (Negative); Urine Ketones Negative (Negative); Urine Protein Negative (Neg-Trace)
[2024-04-28 10:38] LABS: Estimated Average Glucose 128 mg/dL; Hemoglobin A1C 152.8811 umol/L; Hemoglobin A1c % 6.1 % (<6.0)
[2024-04-28 10:42] LABS: Bacteria Urine None Seen (None Seen); Hyaline Casts Urine 0-2 /LPF (0-2); RBC Urine 0-2 /HPF (0-2); Squamous Epithelial Cell Urine 0-2 /HPF (0-2); UACC Culture Trigger YES
[2024-04-28 11:06] LABS: Creatinine Urine 143.35 mg/dL; Protein/Creatinine Ratio, Ur 0.07 (<0.2); Total Protein Urine Random 10 mg/dL (<12)
[2024-04-28 12:25] LABS: Anion Gap 14 (12-20)
[2024-04-28 12:29] LABS: Alanine Aminotransferase 20 U/L (0-31); Aspartate Amino Transferase 24 U/L (5-31); Blood Urea Nitrogen 25 mg/dL (9-16); Calcium 9.8 mg/dL (8.4-10.2); Carbon Dioxide 22 mmol/L (22-29); Chloride 109 mmol/L (96-108); Cholesterol 162 mg/dL (<200); Estimated Glomerular Filt Rate 33; HDL Cholesterol 40 mg/dL (>40); Iron 56 mcg/dL (30-160); LDL Cholesterol Calculated 94 mg/dL (<100); Magnesium 1.8 mg/dL (1.6-2.6); Percent Iron Saturation 23 % (15-50); Potassium 4.1 mmol/L (3.3-5.1); Sodium 141 mmol/L (135-145); Total Iron Binding Capacity 245 mcg/dL (228-428); Triglycerides 144 mg/dL (<150); Unsaturated Iron Binding 189 ug/dL
[2024-04-28 12:40] LABS: Uric Acid 4.9 mg/dL (2.4-5.7)
[2024-04-28 12:49] LABS: Ferritin 156 ng/mL (10-250); Free T4 (Free Thyroxine) 0.99 ng/dL (0.71-1.85); Thyroid Stimulating Hormone 2.74 uIU/mL (0.32-4.0); Vitamin D 25-OH Total 40.6 ng/mL (>30)
== END 2024-04-28 09:24 | disposition home or self-care (01) ==
LOC: HO.LAB 09:23
PROVIDERS: PCP Internal Medicine; Visit Provider Physician Assistant
DX: Z94.0 Kidney transplant status (principal); Z92.25 Personal history of immunosuppression therapy; N18.31 Chronic kidney disease, stage 3a; E11.9 Type 2 diabetes mellitus without complications; D50.8 Other iron deficiency anemias; M1A.30X1 Chronic gout due to renal impairment, unspecified site, with tophus (tophi); E83.42 Hypomagnesemia
CPT/HCPCS: 36415; 80051; 80061; 80197; 81001; 82306; 82310; 82550; 82565; 82570; 82728; 83036; 83540; 83735; 83970; 84156; 84439; 84443; 84450; 84460; 84520; 84550; 85025; 87086

== ENCOUNTER 2024-06-16 11:26 | Outpatient (AMB) | payer OTHER, SELFPAY ==
--- NOTE | 2024-06-16 11:31 | MHC.OFFVIS ---
Vital Signs 06/16/24 11:33 Height 5 ft Weight 158 lb 11.725 oz BMI 31.0 BP 121/63 Blood Pressure Location Lt brachial Position Sitting Pulse 75 Intake Visit Reasons: 4 month follow up Intake Note: Ginette presents in the office as a 4 month follow up. CC: She states that she has pains all over her body. She states has the feeling to go to the bathroom but unable to have a BM. Sometimes she has blood in the stool because she has hard BM and she states it could be due to her medications. 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 used RECAP: Had been seeing August Lambert issues: 1/ IBS-C 2/ GERD 3/constipation--tried linaclotide, amitiza, 2/2 to slow transit, opiates, CCB, and enlarged kidneys, possible pelvic flood dysfucntion colonoscopy 2017---diverticulosis, no other lesions 4/ suspected pancreas lesions I had seen her for left sided abdominal pain and ongoing chronic constipation referred to [facility] for ARM consideration given to movantik on days she is taking opiates she has to manually disimpact, can be painful to pass she is on oxycodone for back pain, takes 2-3 times/week the abx I gave her did reduce her bloating and gas US 12/18--polycystic kidneys, hepatic cysts, ovarian cyst 4.3 cm EGD for epigastric pain: 12/2021 gastritis duodenitis esophagitis path: pos H pylori Colonoscopy: 08/2022--- TA, random colo bx neg h pylori breath test was neg on / INTERIM: she is still having issues with constipation she never got the movantik due to insurance issues she has occ rectal bleeding and nausea EXAM: GENERAL: The patient is well developed and nontoxic. VITAL SIGNS:see workflow HEENT: Nonicteric sclerae, PERRLA, EOMI. Oropharynx clear. Moist mucous membranes. Conjunctivae appear well perfused. No thyroid mass. CHEST: Chest wall is nontender. HEART: Regular rate and rhythm without murmurs. LUNGS: Clear to auscultation bilaterally. ABDOMEN: Soft, positive bowel sounds, mild tender epigastrium and around transplanted kidney, kidney palpable, no organomegaly.no flank tenderness SKIN: No rash, no excessive bruising, petechiae, or purpura. NEUROLOGIC: Cranial nerves II-XII intact without motor/sensory deficit. a/P; 1/ constipation- suspected opioid induced constipation--also maybe SE of her other meds farhana CCB and oxycodone , she never got movantik due to insurance issues PLAN: 1/ reapply for movantik,can still take amitizia as I told her before M,W,F 2/ if sx persist maybe repeat colonoscopy and EGD 3/ [facility]ctomed for hemorrhoids [facility] Medical History Malnutrition Diabetes mellitus Right ankle pain Left ankle pain Fatigue Hair loss Back pain Pancreatic lesion Pneumonia due to COVID-19 virus Essential hypertension Surgical History History of esophagogastroduodenoscopy (EGD) Hx of colonoscopy Kidney transplant recipient AV fistula Kidney transplant status History of tubal ligation History of foot surgery History of lipoma History of benign breast tumor Family History Father CVD (cardiovascular disease) Prostate cancer Mother No problems noted. Social History Household Members: Children Housing: Apartment Alcohol intake: never Patient Tobacco Use Status: Former Tobacco user Tobacco use type: Cigarette e-Cigarette/Vaping Use: Never Used Second Hand Smoke Exposure: No service: No Current occupational status: unemployed Cognitive needs: No Hearing needs: No Vision needs: Yes Physical Exam Vital Signs: Last Vital Signs Pulse 75 06/16/24 11:33 BP 121/63 06/16/24 11:33 BMI result Body Mass Index 31.0 Assessment & Plan Assessment & Plan (1) Opioid-induced constipation: Code(s): K59.03 - Drug induced constipation; T40.2X5A - Adverse effect of other opioids, initial encounter Category: Medical Plan: as above Medications: New naloxegol (Movantik) must be taken on empty stomach; no food 1 hr after or 2-3 hrs before dose 25 mg PO QAM 30 tabs 2RF hydrocortisone 2.5% (Procto-Med HC) 1 appl MS BID-QID PRN 30 grams 1RF hemorrhoids Coding Level of Care Code Est Pt Level 3 (18986) Diagnoses Opioid-induced constipation K59.03; T40.2X5A
[2024-06-16 11:33] VITALS: BP 121/63; PULSE 75; BMI 31.0
== END 2024-06-16 12:07 | disposition home or self-care (01) ==
PROVIDERS: PCP Internal Medicine; Visit Provider Internal Medicine Gastroenterology
DX: K59.03 Drug induced constipation (principal); T40.2X5A Adverse effect of other opioids, initial encounter
CPT/HCPCS: 99213

== ENCOUNTER → 2024-06-16 11:26 | Outpatient (BNVA) | payer OTHER, SELFPAY | PROVIDERS: PCP Internal Medicine; Visit Provider Internal Medicine Gastroenterology | DX: K59.03 Drug induced constipation (principal); T40.2X5D Adverse effect of other opioids, subsequent encounter | CPT/HCPCS: 99212 ==

== ENCOUNTER 2024-06-30 11:00 | Outpatient (REF) | payer OTHER, SELFPAY ==
[2024-06-30 11:19] LABS: MANUAL DIFF FLAG NO
[2024-06-30 11:24] LABS: Basophils Percent Auto 0.6 % (0-2); Eosinophils Absolute Auto 0.2 X10*3/uL (0.0-0.4); Eosinophils Percent Auto 3.2 % (0-4); Hemoglobin 14.1 g/dl (12.0-16.0); Imm Gran Abs Auto 0.01 X10*3/uL (0.00-0.03); Imm Gran Pct Auto 0.2 % (0.0-0.4); Lymphocytes Absolute Auto 0.8 X10*3/uL (1.2-4.9); Lymphocytes Percent Auto 15.3 % (20-40); Mean Corpuscular HGB Conc 33.6 g/dl (31.0-35.0); Mean Corpuscular Hemoglobin 28.1 pg (27.0-33.0); Mean Corpuscular Volume 83.7 fL (80.0-98.0); Mean Platelet Volume 10.9 fL (9.4-12.3); Monocytes Absolute Auto 0.4 X10*3/uL (0.1-1.2); Monocytes Percent Auto 7.6 % (2-11); Neutrophils Absolute Auto 3.8 x10*3/uL (2.0-8.3); Neutrophils Percent Auto 73.1 % (45-73); Platelet Count 158 X10*3/uL (160-400); Red Blood Count 5.02 X10*6/uL (4.20-5.50); Red Cell Distribution Width 13.2 % (11.0-16.0); White Blood Count 5.2 X10*3/uL (4.8-10.8)
[2024-06-30 11:40] LABS: Alanine Aminotransferase 17 U/L (0-31); Anion Gap 13 (12-20); Aspartate Amino Transferase 26 U/L (5-31); Blood Urea Nitrogen 24 mg/dL (9-16); Calcium 9.9 mg/dL (8.4-10.2); Carbon Dioxide 23 mmol/L (22-29); Chloride 112 mmol/L (96-108); Estimated Glomerular Filt Rate 46; Potassium 4.6 mmol/L (3.3-5.1); Sodium 143 mmol/L (135-145)
--- OUTSIDE RECORDS SUMMARY | 2024-06-30 11:53 | XMS_ITS | Encounter Summary ---
Author Organization [facility], Address [address] [place] [address] Phone Care Team Providers Care Raw Mill Operator Name Role Phone Jessica Santamaria MD Primary Care Provider [phone] Reason for Visit * Reason Comments Med Refill Encounter Details Date Type Department Care Team (Late st Contact Info) Description 06/02/2024 [facility]ill [facility] [address] [place] [address] Rony Donato PA [address] [place] [address] Social History Tobacco Use Types Packs/Day Years Used Date Smoking Tobacco: Former Cigarettes Q uit: 03/15/2015 Smokeless Tobacco: Never Comments:Smoking History Inf o:Some days Alcohol Use Standard Drinks/Week Comments No 0 (1 standard drink = 0.6 oz pur e alcohol) Comments Unknown Sex and Gender Information Value Date Recorded Sex Assigned at Not on file Legal Sex Female 4:35 PM EST Gender Identity Not on file Sexual Orientation Not on file documented as of this encounter Plan of Treatment Upcoming Encounters Date Type Department Care Team (Late st Contact Info) Description 07/03/2024 4:15 PM EST Office Visit [facility] [address] [place] [address] Shavon Ng FNP-C [address] [place] [address] documented as of this encounter Visit Diagnoses Not on filedocumented in this encounter Care Teams Raw Mill Operator Relationship Specialty Start Date End Date Jessica Santamaria MD [address] [place], [place] PCP - General 04/04/19 documented as of this encounter
--- OUTSIDE RECORDS SUMMARY | 2024-06-30 11:53 | XMS_ITS | Encounter Summary ---
Author Organization [facility], Address [address] [place] [address] Phone Care Team Providers Care Tool Repairer Name Role Phone Jessica Santamaria MD Primary Care Provider [phone] Reason for Visit * Reason Comments Med Refill Encounter Details Date Type Department Care Team (Late st Contact Info) Description 06/11/2021 [facility]ill [facility] [address] [place] [address] Rony Donato PA [address] [place] [address] Social History Tobacco Use Types [...] Office Visit [facility] [address] [place] [address] Shavon Ng FNP-C [address] [place] [address] documented as of this encounter Visit Diagnoses Not on filedocumented in this encounter Care Teams Tool Repairer Relationship Specialty Start Date End Date Jessica Santamaria MD [address] [place], [place] PCP - General 04/04/19 documented as of this encounter
--- OUTSIDE RECORDS SUMMARY | 2024-06-30 11:53 | XMS_ITS | Encounter Summary ---
Author Organization [facility], Address [address] [place] [address] Phone Care Team Providers Care Press Maintainer Name Role Phone Jessica Santamaria MD Primary Care Provider [phone] Encounter Details Date Type Department Care Team (Late st Contact Info) Description 06/02/2024 1:00 PM EST Office Visit [facility] [address] [place] [address] [place] [phone] Zhang Nazario MD [address] [place] [address] [place] [address] Social History Tobacco Use Types Packs/Day Years [...] on file documented as of this encounter Progress Notes * Zhang Nazario MD - 06/02/2024 1:00 PM EST Images from the original note were not included. HISTORY AND PHYSICAL 06/02/24 Interview and exam performed via Singaporean interpretor #[id number] Chief Complaint: Polycystic kidney disease Patient is s/p DDKT 2018 here at our institution, graft continues to function well with creatinine 1.3 - 1.4, making good urine. She has PCKD for and has been referred to our clinic for potential nephrectomy secondary to abdominal pain. On my interview with the patient she endorses a fall for which she injured her back in [place] - she does see a back specialist for which she receives cortisone injections for lower back pain. She has not seen this specialist in some time as she did not have a good result after the last injection. She endorses mostly sciatica type pain, mostly centered around her lower back in the midline with shooting type pain that radiates down both of her legs, mostly at night. She does endorse some abdominal pain that is intermittent. Pertinent History: Pain: The patient complains of abdominal pain. GI symptoms: The patient complains of nausea. Mass: The patient denies a mass. Myocardial infarction the last 6 months: No Stroke in the last 6 months: No Chest pain/angina: No Shortness of breath: No Circulation problems: No History of easy bleeding and/or bruising: No History of deep venous thrombosis or clotting problems: No Currently taking anticoagulant medications: No In addition to reviewing the medical, surgical, social and family histories from the [facility]) common record, I have also reviewed the [facility] Health History Questionnaire (Includes: Personal Health History, Medications, Allergies and Social History/Habits) which was completed today and will be scanned into this patient's electronic medical record. Further, I reviewed the records in Care Everywhere. Physical Exam: There were no vitals filed for this visit. Physical Exam Benign abdominal exam, well healed RLQ Lan incision. Non palpable right manzanita kidney, slightly palpable left manzanita kidney. Impression: 58 y/o F s/p DDKT 2018 due to polycystic kidney disease. She is referred to our clinic for evaluation for potential bilateral nephrectomy due to increased pain. Patient Active Problem List Diagnosis Stage 3b chronic kidney disease (HCC) History of immunosuppressive therapy History of renal transplant Hyperlipidemia Multiple congenital cysts of kidney Essential hypertension Ovarian cyst of right side Finding related to ability to pass urine <Straining to void> Back pain Irritable bowel syndrome Hyperglycemia Secondary hyperparathyroidism (HCC) Abnormal vaginal bleeding Tinea versicolor Lumbar radiculopathy Insomnia Type 2 diabetes mellitus without complication (HCC) Neuropathy Obese class I Stage 3a chronic kidney disease (HCC) Medical records reviewed. Imaging studies reviewed. Pertinent labs reviewed. Different options for management were explained. The multiple risks inherent to the proposed procedure were discussed. These risks included but were not limited to: Anesthesia Bleeding Transfusion Infection Need for futuretesting and/or operations A cable splicer helper was present for our discussion. Plan: On exam and interview patient's pain is most likely related to her lower back injury, as her symptoms do sound musculoskeletal in nature. However, she does endorse vague abdominal symptoms and her left kidney is palpable on exam. Her most recent imaging was >4 years ago, and as such I recommend that she have a repeat non contrast CT scan to evaluate for any growth of her polycystic kidneys. Inthe mean time I recommend she follow up with her back specialist for follow up appointment. Her graft is functioning nicely and I recommend no changes to her medications at this time. We will follow up after the CT images are obtained and discuss next steps. In the mean time recommend conservative m anagement with tylenol. Disposition: To home, follow up non contrast CT documented in this encounter Plan of Treatment Upcoming Encounters Date Type Department Care Team (Late st Contact Info) Description 07/03/2024 4:15 PM EST Office Visit [facility] [address] [place] [phone] Shavon Ng FNP-Tanesha [address] [place] [phone] documented as of this encounter Visit Diagnoses Not on filedocumented in this encounter Care Teams Press Maintainer Relationship Specialty Start Date End Date Jessica Santamaria MD [address] [place], [place] PCP - General 04/04/19 documented as of this encounter
--- OUTSIDE RECORDS SUMMARY | 2024-06-30 11:53 | XMS_ITS | Encounter Summary ---
Author Organization [facility] Address [address] [place] [address] Phone Care Team Providers Care Cattle Trader Name Role Phone Jessica Santamaria MD Primary Care Provider [phone] Encounter Details Date Type Department Care Team (Late Contact Info) Description 09/28/2023 Documentation Only [facility], [address] [place] [address] [place] [address] [place] [address] Social History Tobacco Use Types Packs/Day Years [...] Visit [facility] [address] [place] [address] Shavon Ng FNP-C [address] [place] [address] documented as of this encounter Visit Diagnoses Not on filedocumented in this encounter Care Teams Cattle Trader Relationship Specialty Start Date End Date Jessica Santamaria MD [address] [place], [place] PCP - General 04/04/19 documented as of this encounter
--- OUTSIDE RECORDS SUMMARY | 2024-06-30 11:53 | XMS_ITS | Encounter Summary ---
Author Organization [facility] Address [address] [place] [address] Phone Care Team Providers Care Sanitary Chemist Name Role Phone Jessica Santamaria MD Primary Care Provider Encounter Details Date Type Department Care Team (Late Contact Info) Description 04/28/2024 Documentation Only [facility], [address] [place] [address] [place], [place] [address] [place] [address] Social History Tobacco Use Types [...] Visit [facility] [address] [place] [address] Shavon Ng FNP-C [address] [place] [place] [address] documented as of this encounter Visit Diagnoses Not on filedocumented in this encounter Care Teams Sanitary Chemist Relationship Specialty Start Date End Date Jessica Santamaria MD [address] [place], [place] PCP - General 04/04/19 documented as of this encounter
--- OUTSIDE RECORDS SUMMARY | 2024-06-30 11:53 | XMS_ITS | Clinical Summary ---
Author Organization [facility], Address [address] [place] [address] [place] [address] Phone Care Team Providers Care Ice Grinder Name Role Phone Jessica Santamaria MD Primary Care Provider [phone] Allergies Active Allergy Reactions Criticality Noted Date Comments Adhesive Tape Other (see comments) Low 05/19/2019 Diphenhydramine Other (see comments) 05/19/2019 Hydralazine Other (see comments) 09/02/2018 Latex Itching 05/19/2019 Levofloxacin 08/16/2020 Morphine Rash High 10/29/2023 Medications Amitiza 24 MCG capsule TAKE 1 CAPSULE BY MOUTH TWICE DAILY WITH FOOD AND WATER 0 Active oxyCODONE (ROXICODONE) 5 MG immediate release tablet Take 5 mg by mouth 2 (two) times a day if needed 1 Active NIFEdipine CC (PROCARDIA XL) 60 MG 24 hr tablet Take 1 tablet (60 mg total) by mouth 1 (one) time each day 30 tablet 11 1 Active labetalol (NORMODYNE) 200 MG tablet TAKE 1 TABLET BY MOUTH TWICE DAILY IN THE MORNING AND IN THE EVENING 60 tablet 11 3 Active atorvastatin (LIPITOR) 40 MG tablet Take 1 tablet (40 mg total) by mouth 1 (one) time each day 90 tablet 3 3 Active FREESTYLE LITE test strip 1 each by Other route 1 (one) time each day 4 Active metFORMIN (Fortamet) 500 MG 24 hr tablet Take 1 tablet (500 mg total) by mouth 1 (one) time each day with dinner Do not crush, chew, or split. 30 tablet 11 4 025 Active Jardiance 10 MG tablet Take by mouth 1 (one) time each day 4 Active traZODone (DESYREL) 100 MG tablet Take 100 mg by mouth at night if needed for sleep 4 Active calcitriol (ROCALTROL) 0.25 MCG capsule TAKE 1 CAPSULE BY MOUTH 3 TIMES A WEEK 36 capsule 3 4 Active Farxiga 10 MG tablet TAKE 1 TABLET BY MOUTH EVERY MORNING 90 tablet 3 4 Active tacrolimus (PROGRAF) 1 MG capsule Take 6 capsules (6 mg total) by mouth in the morning and 6 capsules (6 mg total) in the evening. 360 capsule 11 4 025 Active mycophenolate (MYFORTIC) 180 MG EC tablet Take 3 tablets (540 mg total) by mouth in the morning and 3 tablets (540 mg total) in the evening. 180 tablet 11 5 026 Active mycophenolate (MYFORTIC) 180 MG EC tablet Take 3 tablets (540 mg total) by mouth in the morning and 3 tablets (540 mg total) in the evening. 180 tablet 11 4 025 Discontinued Active Problems Problem Noted Date Diagnosed Date Stage 3a chronic kidney disease 06/16/2023 Obese class I 11/12/2022 Neuropathy 12/16/2021 Type 2 diabetes mellitus without complication Lumbar radiculopathy 07/30/2021 Insomnia 07/30/2021 Tinea versicolor 05/14/2021 Abnormal vaginal bleeding 05/01/2020 Finding related to ability t o pass urine <Straining to void> 04/03/2020 Back pain 04/03/2020 Irritable bowel syndrome 04/03/2020 Hyperglycemia 04/03/2020 Ovarian cyst of right side 08/10/2019 Essential hypertension 06/14/2019 Stage 3b chronic kidney disease 05/19/2019 Overview (06/03/2020): Update for Diagnosis Load History of immunosuppressive therapy 05/19/2019 History of renal transplant 05/19/2019 Hyperlipidemia 05/19/2019 Multiple congenital cysts of kidney 05/19/2019 Secondary hyperparathyroidism Encounters Date Type Department Care Team Description 06/02/2024 1:00 PM EST Office Visit [facility] [address] [place] [address] [place] [id number] Zhang Nazario MD 06/02/2024 Refill [facility] [address] [place] [address] Rony Donato PA 06/01/2024 Telephone [facility] [address] [place] [address] [place] [address] Antonia Jackson 05/09/2024 Telephone [facility] [address] [place] [place] [address] Zoe Vásquez RN 05/08/2024 Refill [facility] [address] [place] [address] Rony Donato PA 05/04/2024 Telephone [facility] Access [address] [place] [address] Antonia Jackson 04/28/2024 11:30 AM EST Office Visit [facility] [address] [place] [address] Rony Donato, JANINE History of renal transplant (Primary Dx); History of immunosuppressive therapy; Stage 3a chronic kidney disease (HCC); Autosomal dominant polycystic kidney disease 04/28/2024 Documentation Only [facility] [address] [place] [address] Hiwot Smith MA 04/18/2024 Telephone [facility] [address] [place] [address] Karyn Ross 03/30/2024 Refill [facility] [address] [place] [address] Alvaro Stratton MD from Last 3 Months Immunizations Name Administration Dates Next Due Influenza Split High Dose Preservative Free IM 0 01/29/2015 Influenza, MDCK, Quadrivalent, with preservative 04/08/2020,04/06/2019 Influenza, Unspecified 06/02/2018 Melvina SARS-COV-2 08/21/2020 Moderna SARS-COV-2 05/14/2021 Family History Medical History Relation Comments Cancer Father prostate Diabetes Father Gout Father Heart disease Father Hypertension Father Stroke Father Autosomal Dominant Polycystic Kidney Disease Mot her Diabetes Mother due to renal failure Hypertension Mother Kidney disease Mother Dementia Sibling 1 Kidney disease Sibling 1 Stroke Sibling 1 Kidney disease Sibling 2 Diabetes Sibling 3 Hypertension Sibling 4 Heart disease Sibling 5 Autosomal Dominant Polycystic Kidney Disease Sib ling 6 Dementia Sibling 7 Relation Status Comments Father Mother Sibling 1 Sibling 2 Sibling 3 Sibling 4 Sibling 5 Sibling 6 Sibling 7 Social History Tobacco Use Types Packs/Day Years [...] on file Sexual Orientation Not on file Last Filed Vital Signs Vital Sign Reading Time Taken Comments Blood Pressure 126/72 04/28/2024 11:50 AM EST Pulse 64 10/29/2023 10:44 AM EDT Temperature 36.3 ??C (97.3 ??F) 10/29/2023 10:44 AM E DT Respiratory Rate 16 04/18/2019 12:00 PM EST Oxygen Saturation 97% 10/29/2023 10:44 AM EDT Inhaled Oxygen Concentration - - Weight 75.3 kg (166 lb) 04/28/2024 11:50 AM EST Height 154.9 cm (5' 1 ) 04/28/2024 11:50 AM EST Body Mass Index 31.37 04/28/2024 11:50 AM EST Plan of Treatment Upcoming Encounters Date Type Department Care Team (Late st Contact Info) Description 07/03/2024 4:15 PM EST Office Visit [facility] [address] [place] [place] [address] AldairShavon galindo, TACTICAL DEBRIEFER-C [address] [place] [address] Health Maintenance Due Date Last Done Comments Breast Cancer Screening 1966 Pneumococcal Vaccine: Pediat rics (0 to 5 Years) and At-Risk Patients (6 to 64 Years) (1 of 2 - PCV) 1972 Hepatitis B Vaccine (1 of 3 - 19+ 3-dose series) 1985 Colonoscopy (Post-Transplant Patient) 01/10/2020 Mammogram (Post-Transplant Patient) 01/10/2020 Pelvic Exam (Post-Transplant Patient) 01/10/2020 Diabetes: Ophthalmology Exam 10/01/2021 Diabetes: Pedal Pulse Checked 10/01/2021 Diabetes: Sensory Foot Exam 10/01/2021 Diabetes: Visual Foot Exam 10/01/2021 Diabetes: Hemoglobin A1C 02/13/2023 023, 09/09/2022, 05/13/2022, Additional history exists Influenza Vaccine (#1) 2024 0, 04/06/2019, 06/02/2018, Additional history exists Procedures Procedure Name Priority Date/Time Associated Diagnosis Comments HEMOGLOBIN A1C Routine 11/13/2022 9:47 AM EDT Stage 3b chronic kidney disease (HCC) History of immunosuppressive therapy History of renal transplant Pure hypercholesterolemia, not otherwise specified Other abnormal glucose Secondary hyperparathyroidism (HCC) Type 2 diabetes mellitus without complication (HCC) Iron deficiency anemia, not otherwise specified Vitamin D deficiency, not otherwise specified Idiopathic gout, not otherwise specified from Last 3 Months or Most Recently Relevant to Health Maintenance Results * (ABNORMAL) Hemoglobin A1c (11/13/2022 9:47 AM EDT) Hemoglobin A1C 6.4(H) (4.0-5.6) % [facility] Comment: MONITORING: In known diabetic patients, hemoglobin A1c targets should be discussed with health care provider. DIAGNOSTIC USE: ??The [place] Diabetes Association (ADA) and the World Health Organization (WHO) recommend the use of HbA1c to diagnose diabetes using a threshold of 6.5%. Patients who have an HbA1c between 5.7% and 6.4% are considered at increased risk for developing diabetes in the future. CAUTION: Falsely low HbA1c results may be observed in patients with hemolytic anemia, homozygous forms of abnormal hemoglobin (e.g. SS, CC, SC), , recent blood loss or hemoglobin F greater than 7%. Fructosamine may be used as an alternate test in these cases. REFERENCE: ADA: Standards of Medical Care in Diabetes 2020, The Journal of Clinical and Applied Research and Education Volume 43, Supplement 1 Testing performed or reported by [facility], a Service of [facility], [address] [place] [id number] Tate Pham MD, Conflicts Analyst [facility]# [id number] Blood (Blood, Venous) 11/13/2022 9:47 AM EDT 11/13/2022 9:48 AM EDT us Rony [facility] BLOOD ORDERABLES Final Re sult [facility] from Last 3 Months or Most Recently Relevant to Health Maintenance Insurance [facility] MEDICAID [place] [id number] [place] [id number] Care Teams Ice Grinder Relationship Specialty Start Date End Date Jessica Santamaria MD [address] [place] [address] [address] [facility] [place] PCP - General 04/04/19
--- OUTSIDE RECORDS SUMMARY | 2024-06-30 11:53 | XMS_ITS | Encounter Summary ---
Author Organization [facility] Address [address] [place] [address] Phone Care Team Providers Care Yarn Spinner Name Role Phone Jessica Santamaria MD Primary Care Provider [phone] Encounter Details Date Type Department Care Team (Late Contact Info) Description 09/20/2023 Documentation Only [facility] [place], [address] [place] [address] Hiwot SmithCHEVY [place], [place] [address] [place] [address] Social History Tobacco Use Types [...] Visit [facility] [place] [address] [place] [address] Shavon Ng FNP-C [address] [place] [address] documented as of this encounter Visit Diagnoses Not on filedocumented in this encounter Care Teams Yarn Spinner Relationship Specialty Start Date End Date Jessica Santamaria MD [address] [place], [place] PCP - General 04/04/19 documented as of this encounter
--- OUTSIDE RECORDS SUMMARY | 2024-06-30 11:53 | XMS_ITS | Encounter Summary ---
Author Organization [facility] [place], Address [address] [place] [address] Phone Care Team Providers Care Foreign Legal Consultant Name Role Phone Jessica Santamaria MD Primary Care Provider [phone] Reason for Visit * Reason Comments Med Refill Encounter Details Date Type Department Care Team (Late st Contact Info) Description 07/20/2023 Refill [facility] [address] [place] [address] Rony Donato PA [address] [place] [address] Social History Tobacco Use Types [...] Office Visit [facility] [address] [address] Shavon Ng FNP-C [address] [facility] [address] documented as of this encounter Visit Diagnoses Not on filedocumented in this encounter Care Teams Foreign Legal Consultant Relationship Specialty Start Date End Date Jessica Santamaria MD [address] [place], [place] PCP - General 04/04/19 documented as of this encounter
--- OUTSIDE RECORDS SUMMARY | 2024-06-30 11:53 | XMS_ITS | Encounter Summary ---
Author Organization [facility] Address [address] [place] [address] Phone Care Team Providers Care Mortgage Assistant Name Role Phone Jessica Santamaria MD Primary Care Provider [phone] Encounter Details Date Type Department Care Team (Late Contact Info) Description 11/18/2023 Documentation Only [facility] [place], [address] [place] [address] Hiwot SmithSAN [place]FA[place], [place] [address] [place] [address] Social History Tobacco Use Types [...] Visit [facility] [place] [address] [place] [address] Shavon Ng FNP-C [address] [place] [address] documented as of this encounter Visit Diagnoses Not on filedocumented in this encounter Care Teams Mortgage Assistant Relationship Specialty Start Date End Date Jessica Santamaria MD [address] [place], [place] PCP - General 04/04/19 documented as of this encounter
--- OUTSIDE RECORDS SUMMARY | 2024-06-30 11:53 | XMS_ITS | Encounter Summary ---
Author Organization [facility] Address [address] [place] [address] Phone Care Team Providers Care Pluck Separator Name Role Phone Jessica Santamaria MD Primary Care Provider [phone] Encounter Details Date Type Department Care Team (Late Contact Info) Description 02/16/2024 Documentation Only [facility] [place], [address] [place] [address] Hiwot SmithRANCHO [place], [place] [address] [place] [address] Social History Tobacco Use Types [...] Visit [facility] [place] [address] [place] [address] Shavon Ng FNP-C [address] [place] [address] documented as of this encounter Visit Diagnoses Not on filedocumented in this encounter Care Teams Pluck Separator Relationship Specialty Start Date End Date Jessica Santamaria MD [address] [place], [place] PCP - General 04/04/19 documented as of this encounter
--- OUTSIDE RECORDS SUMMARY | 2024-06-30 11:53 | XMS_ITS | Encounter Summary ---
Author Organization [facility] Address [address] [place] [address] Phone Care Team Providers Care Cd Reactor Operator Head Name Role Phone Jessica Santamaria MD Primary Care Provider [phone] Encounter Details Date Type Department Care Team (Late Contact Info) Description 08/20/2023 Documentation Only [facility] [place], [address] [place] [address] Hi[place]ot [place]HATTI[place], [place] [address] [place] [address] Social History Tobacco Use Types [...] Visit [facility] [place] [address] [place] [address] Shavon Ng FNP-C [address] [place] [address] documented as of this encounter Visit Diagnoses Not on filedocumented in this encounter Care Teams Cd Reactor Operator Head Relationship Specialty Start Date End Date Jessica Santamaria MD [address] [place], [place] PCP - General 04/04/19 documented as of this encounter
--- OUTSIDE RECORDS SUMMARY | 2024-06-30 11:53 | XMS_ITS | Encounter Summary ---
Author Organization [facility] [place], Address [address] [place] [address] Phone Care Team Providers Care Waste Transportation Technician Name Role Phone Jessica Santamaria MD Primary Care Provider [phone] Reason for Visit * Reason Comments Med Refill Encounter Details Date Type Department Care Team (Late st Contact Info) Description 06/23/2021 Refill [facility] [address] [place] [address] Rony Donato PA [address] [place] [address] Social History Tobacco Use Types [...] Office Visit [facility] [address] [address] Shavon Ng FNP-C [address] [place] [address] documented as of this encounter Visit Diagnoses Not on filedocumented in this encounter Care Teams Waste Transportation Technician Relationship Specialty Start Date End Date Jessica Santamaria MD [address] [place], [place] PCP - General 04/04/19 documented as of this encounter
--- OUTSIDE RECORDS SUMMARY | 2024-06-30 11:53 | XMS_ITS | Encounter Summary ---
Author Organization [facility] Address [address] [place] [address] Phone Care Team Providers Care Clinical Data Research Name Role Phone Jessica Santamaria MD Primary Care Provider [phone] Encounter Details Date Type Department Care Team (Late Contact Info) Description 09/20/2023 Documentation Only [facility] [place], [address] [place] [address] Hi[place]ot [place]BRILLI[place], [place] [address] [place] [address] Social History Tobacco Use Types [...] Visit [facility] [place] [address] [place] [address] Shavon Ng FNP-C [address] [place] [address] documented as of this encounter Visit Diagnoses Not on filedocumented in this encounter Care Teams Clinical Data Research Relationship Specialty Start Date End Date Jessica Santamaria MD [address] [place], [place] PCP - General 04/04/19 documented as of this encounter
--- OUTSIDE RECORDS SUMMARY | 2024-06-30 11:53 | XMS_ITS | Encounter Summary ---
Author Organization [facility] [place], Address [address] [place] [address] Phone Care Team Providers Care Paper Cutter Operator Name Role Phone Jessica Santamaria MD Primary Care Provider [phone] Reason for Visit * Reason Comments Med Refill Encounter Details Date Type Department Care Team (Late st Contact Info) Description 06/20/2021 Refill [facility] [address] [place] [address] Rony Donato PA [address] [facility] [place] [address] Social History Tobacco Use Types [...] Office Visit [facility] [address] [address] Shavon Ng FNP-C [address] [facility] [address] documented as of this encounter Visit Diagnoses Not on filedocumented in this encounter Care Teams Paper Cutter Operator Relationship Specialty Start Date End Date Jessica Santamaria MD [address] [place], [place] PCP - General 04/04/19 documented as of this encounter
--- OUTSIDE RECORDS SUMMARY | 2024-06-30 11:53 | XMS_ITS | Encounter Summary ---
Author Organization [facility] Address [address] [place] [address] Phone Care Team Providers Care Ehs Specialist Name Role Phone Jessica Santamaria MD Primary Care Provider [phone] Encounter Details Date Type Department Care Team (Late Contact Info) Description 10/05/2023 Documentation Only [facility] [place], [address] [place] [address] Hiwot SmithOTTOSEN, [place] [address] [place] [address] Social History Tobacco Use Types [...] Visit [facility] [place] [address] [place] [address] Shavon Ng FNP-C [address] [place] [address] documented as of this encounter Visit Diagnoses Not on filedocumented in this encounter Care Teams Ehs Specialist Relationship Specialty Start Date End Date Jessica Santamaria MD [address] [place], [place] PCP - General 04/04/19 documented as of this encounter
--- OUTSIDE RECORDS SUMMARY | 2024-06-30 11:53 | XMS_ITS | Encounter Summary ---
Author Organization [facility] [place], Address [address] [place] [address] Phone Care Team Providers Care Supervisor Ride Assembly Name Role Phone Jessica Santamaria MD Primary Care Provider [phone] Encounter Details Date Type Department Care Team (Late st Contact Info) Description 06/01/2024 Telephone [facility] [place], - [facility] Center [address] [place] [address] [place] [address] Antonia Jackson [address] [place] [address] Social History Tobacco Use Types Packs/Day [...] on file documented as of this encounter Miscellaneous Notes * Telephone Encounter - Antonia Jackson - 06/01/2024 12:07 PM EST OFFICE VISIT REMINDER COMMUNICATION Spoke to Ginette and confirmed office visit scheduled on 06/02/23. documented in this encounter Plan of Treatment Upcoming Encounters Date Type Department Care Team (Late st Contact Info) Description 07/03/2024 4:15 PM EST Office Visit [facility] [address] [place] [address] Shavon Ng, TURN MACHINE OPERATOR-C [address] [place] [address] documented as of this encounter Visit Diagnoses Not on filedocumented in this encounter Care Teams Supervisor Ride Assembly Relationship Specialty Start Date End Date Jessica Santamaria MD [address] [place], [place] PCP - General 04/04/19 documented as of this encounter
--- OUTSIDE RECORDS SUMMARY | 2024-06-30 11:54 | XMS_ITS | Encounter Summary ---
Author Organization [facility] Address [address] [address] Phone Care Team Providers Care J2Ee Android Developer Name Role Phone Jessica Santamaria MD Primary Care Provider [phone] Reason for Visit * Reason Comments Med Refill Encounter Details Date Type Department Care Team (Late st Contact Info) Description 04/12/2023 Refill [facility] [place], [address] [place] [place] [address] Alvaro Stratton MD [address] [facility] [address] [place] [address] Social History Tobacco Use Types Packs/Day Years [...] Office Visit [facility] [address] [place] [address] Shavon Ng FNP-C [address] [place] [address] documented as of this encounter Visit Diagnoses Not on filedocumented in this encounter Care Teams J2Ee Android Developer Relationship Specialty Start Date End Date Jessica Santamaria MD [address] [place], [place] PCP - General 04/04/19 documented as of this encounter
--- OUTSIDE RECORDS SUMMARY | 2024-06-30 11:54 | XMS_ITS | Encounter Summary ---
Author Organization [facility] [place], Address [address] [place] [address] Phone Care Team Providers Care Inspector Optical Instrument Name Role Phone Jessica Santamaria MD Primary Care Provider [phone] Reason for Visit * Reason Comments Med Refill Encounter Details Date Type Department Care Team (Late st Contact Info) Description 08/24/2022 Refill [facility] [address] [place] [address] Rony Donato PA [address] [address] [place] [address] Social History Tobacco Use Types [...] Office Visit [facility] [address] [place] [address] Shavon Ng FNP-C [address] [place] [address] documented as of this encounter Visit Diagnoses Not on filedocumented in this encounter Care Teams Inspector Optical Instrument Relationship Specialty Start Date End Date Jessica Santamaria MD [address] [place], [place] PCP - General 04/04/19 documented as of this encounter
--- OUTSIDE RECORDS SUMMARY | 2024-06-30 11:54 | XMS_ITS | Encounter Summary ---
Author Organization [facility], Address [address] [place] [address] Phone Care Team Providers Care Ballistics Tester Name Role Phone Jessica Santamaria MD Primary Care Provider [phone] Reason for Visit * Reason Comments Med Refill Encounter Details Date Type Department Care Team (Late st Contact Info) Description 04/16/2022 [facility]ill [facility] [address] [place] [address] Rony Donato PA [address] [place] [address] [place] [address] Social History Tobacco Use Types [...] on file Sexual Orientation Not on file COVID-19 Exposure Response Date Recorded In the last 10 days, have yo u been in contact with someone who was confirmed or suspected to have Coronavirus/COVID-19? No / Unsure 03/17/2022 9:45 AM EDT documented as of this encounter Plan of Treatment Upcoming Encounters Date Type Department Care Team (Late st Contact Info) Description 07/03/2024 4:15 PM EST Office [facility] [address] [place] [phone] Shavon Ng FNP-C [address] [place] [address] [place] [address] documented as of this encounter Visit Diagnoses Not on filedocumented in this encounter Care Teams Ballistics Tester Relationship Specialty Start Date End Date Jessica Santamaria MD [address] [place], [place] PCP - General 04/04/19 documented as of this encounter
--- OUTSIDE RECORDS SUMMARY | 2024-06-30 11:54 | XMS_ITS | Encounter Summary ---
Author Organization [facility], Address [address] [address] Phone Care Team Providers Care Timers Inspector Name Role Phone Jessica Santamaria MD Primary Care Provider [phone] Reason for Visit * Reason Comments Med Refill Encounter Details Date Type Department Care Team (Late st Contact Info) Description 07/13/2022 Refill [facility] [address] [place] [address] Alvaro Stratton MD [address] [place] [address] Social History Tobacco Use Types [...] Office Visit [facility] [address] [place] [address] Shavon Ng FNP-C [address] [place] [address] documented as of this encounter Visit Diagnoses Not on filedocumented in this encounter Care Teams Timers Inspector Relationship Specialty Start Date End Date Jessica Santamaria MD [address] [place], [place] PCP - General 04/04/19 documented as of this encounter
--- OUTSIDE RECORDS SUMMARY | 2024-06-30 11:54 | XMS_ITS | Encounter Summary ---
Author Organization [facility], Address [address] [place] [address] Phone Care Team Providers Care Button Tufter Name Role Phone Jessica Santamaria MD Primary Care Provider Reason for Visit * Reason Comments Med Refill Encounter Details Date Type Department Care Team (Late st Contact Info) Description 06/23/2022 [facility]ill [facility] [address] [place] [address] Rony Donato PA [address] [place] [address] Social History Tobacco Use Types [...] Office Visit [facility] [address] [place] [address] Shavon Ng FNP-C [address] [place] [address] documented as of this encounter Visit Diagnoses Not on filedocumented in this encounter Care Teams Button Tufter Relationship Specialty Start Date End Date Jessica Santamaria MD [address] [place], [place] PCP - General 04/04/19 documented as of this encounter
[2024-06-30 12:07] LABS: Appearance Urine Clear; Color Urine Yellow; Glucose Urine UA >=1000 mg/dL (Negative); Leukocyte Esterase Urine Negative (Negative); Nitrite Urine Negative (Negative); Specific Gravity - Urine 1.025 (1.005-1.025); UMIC TRIGGER UACC YES; Urine Blood Negative (Negative); Urine Ketones Negative (Negative); Urine Protein Negative (Neg-Trace)
[2024-06-30 12:20] LABS: Bacteria Urine None Seen (None Seen); Hyaline Casts Urine 0-2 /LPF (0-2); RBC Urine 0-2 /HPF (0-2); Squamous Epithelial Cell Urine 0-2 /HPF (0-2); WBC Urine 0-5 /HPF (0-5)
[2024-06-30 12:52] LABS: Creatinine Urine 98.49 mg/dL; Protein/Creatinine Ratio, Ur 0.11 (<0.2); Total Protein Urine Random 11 mg/dL (<12)
[2024-07-02 11:39] LABS: Tacrolimus Prograf 6.5 mcg/L
[2024-07-04 23:33] LABS: Mycophenolic Acid 8.3 mcg/mL (1.0-3.5)
== END 2024-06-30 11:01 | disposition home or self-care (01) ==
LOC: HO.LAB 11:00
PROVIDERS: Visit Provider Internal Medicine Nephrology
DX: Z94.0 Kidney transplant status (principal); Z92.25 Personal history of immunosuppression therapy; N18.32 Chronic kidney disease, stage 3b; E11.9 Type 2 diabetes mellitus without complications; R80.8 Other proteinuria
CPT/HCPCS: 36415; 80051; 80180; 80197; 81001; 81003; 82310; 82550; 82565; 82570; 84156; 84450; 84460; 84520; 85025

== ENCOUNTER 2024-08-24 10:42 | Outpatient (AMB) | payer OTHER, SELFPAY ==
--- NOTE | 2024-08-24 10:49 | MHC.PC.OV ---
Vital Signs 08/24/24 11:00 Height 5 ft Weight 159 lb BMI 31.0 BP 118/78 Blood Pressure Location Rt brachial Position Sitting Intake Visit Reasons: LT side pain/cough Shower Doors And Panels Fabricator Required: Yes Shower Doors And Panels Fabricator Language: Bottom Stainer Name: Jessica Dietz MD Information Interpreted: non-clinical & clinical Accompanied by: Self / Same As Patient Allergies amlodipine Adverse Reaction (Intermediate, Verified 08/24/24 10:51) leg edema morphine Adverse Reaction (Mild, Verified 08/24/24 10:51) Rash Medication List - Last Reconciled 08/24/24 by Jessica Dietz MD albuterol sulfate 90 mcg/actuation (Ventolin HFA) inhalation alcohol swabs (Alcohol Prep Pads) 1 pad topical BID atorvastatin 40 mg PO BEDTIME 90 days blood sugar diagnostic (FreeStyle Lite Strips) Use 1 test strip once a day blood-glucose meter (FreeStyle Lite Meter kit) As directed calcitriol mcg PO dapagliflozin propanediol (Farxiga) 10 mg PO DAILY fluticasone propionate 50 mcg/actuation 1 spray intranasal BID hydrocortisone 2.5% (Procto-Med HC) 1 appl SC BID-QID PRN labetalol 200 mg PO BID 90 days lancets (FreeStyle Lancets) Use 1 lancet once a day linagliptin (Tradjenta) 5 mg PO DAILY 90 days lubiprostone (Amitiza) 24 mcg PO DAILY mycophenolate sodium 540 mg PO BID naloxegol (Movantik) 25 mg PO QAM nifedipine ER 60 mg PO DAILY 90 days oxycodone 5 mg PO BID PRN 28 days tacrolimus 7 mg PO Tobacco use date assessed: 08/24/24 Dental Screening Dental Screen Date: 08/24/24 Did you have a dental visit in the last 12 months?: No Did you have a dental problem in the last 6 months where you did not have access to dental care?: No Was dental information given to patient?: Patient has dentist HPI HPI Comments History of Present Illness Details The patient is a 59-year-old female presenting with complaints of congestion and left foot pain. The congestion has been ongoing for a week, resistant to her usual use of TeraFlux tea, and involves some ear discomfort. There is no associated headache but a persistent feeling of irritation and congestion remains, impacting her daily activities. She also experiences pain in the left foot, which has been present for nearly a month. She notes that the pain is interfering with her mobility and daily life. She is under medical treatment for hypertension and has undergone a kidney transplant, requiring medication adherence for transplant maintenance and hypertension management, with reported allergies to amlodipine and morphine. She also has chronic kidney disease and diabetes mellitus type 2 with A1c within goal. She is using opiates for occurred. Head is asking for an increase. She also complains of left leg pain an ultrasound will be done to rule out DVT. REPLACED BY [facility] Medical History (Updated 08/24/24 @ 11:17 by Jessica Dietz MD) Malnutrition Diabetes mellitus Right ankle pain Left ankle pain Fatigue Hair loss Back pain Pancreatic lesion Pneumonia due to COVID-19 virus Essential hypertension Surgical History History of esophagogastroduodenoscopy (EGD) Hx of colonoscopy Kidney transplant recipient AV fistula Kidney transplant status History of tubal ligation History of foot surgery History of lipoma History of benign breast tumor Family History Father CVD (cardiovascular disease) Prostate cancer Mother No problems noted. Social History Household Members: Children Housing: Apartment Alcohol intake: never Patient Tobacco Use Status: Former Tobacco user Tobacco use type: Cigarette e-Cigarette/Vaping Use: Never Used Second Hand Smoke Exposure: No service: No Current occupational status: unemployed Cognitive needs: No Hearing needs: No Vision needs: Yes Questionnaire PHQ-9 Over the last 2 weeks, how often have you been bothered by any of the following problems? 1. Little interest or pleasure in doing things: not at all 2. Feeling down, depressed, or hopeless: not at all 3. Trouble falling or staying asleep, or sleeping too much: not at all 4. Feeling tired or having little energy: not at all 5. Poor appetite or overeating: not at all 6. Feeling bad about yourself - or that you are a failure or have let yourself or your family down: not at all 7. Trouble concentrating on things, such as reading the newspaper or watching television: not at all 8. Moving or speaking so slowly that other people could have noticed. Or the opposite - being so fidgety or restless that you have been moving around a lot more than usual: not at all 9. Thoughts that you would be better off or of hurting yourself in some way: not at all Total score: 0 Depression Screening Interpretation: Negative Depression Screening Done: Yes 98958 - PHQ-9 Billing: Yes Source: Developed by Drs. Tereso Jones, Marilyn Cedeno, Homer Huston and colleagues, with an educational catrina from [employer]. Thrive Questionnaire Date Thrive assessed: 08/24/24 I am a: Patient What is your living situation today?: I have a steady place to live Within the past 12 months, did the food you bought not last and you didn't have the money to get more?: Never true Within the past 12 months, did you worry whether your food would run out before you got money to buy more?: Never true Do you have trouble paying for medicines?: No Do you have trouble getting transportation to medical appointments?: No Do you have trouble paying your heating and electricity bill?: No Do you have trouble taking care of your child, family member or friend?: No Do you have trouble with day-to-day activities such as bathing, preparing meals, shopping, managing finances, etc.?: No Are you currently unemployed and looking for a job?: No Are you interested in more education?: No Please select the resources that you would like help with: None Currently or been in a relationship where the following occur: No concerns reported THRIVE Score: 0 AUDIT C Alcohol Use Questionnaire (AUDIT-C) 1. How often do you have a drink containing alcohol?: Never Total Score: 0 JONNIE-7 AMB Questionnaire JONNIE-7 Date JONNIE - 7 assessed: 08/24/24 Feeling nervous, anxious, or on edge: 0 = Not at all Not being able to stop or control worryin = Not at all Worrying too much about different things: 0 = Not at all Trouble relaxin = Not at all Being so restless that it is hard to sit still: 0 = Not at all Becoming easily annoyed or irritable: 0 = Not at all Feeling afraid as if something awful might happen: 0 = Not at all Total JONNIE-7 score (0-4 normal; 5-9 mild; 10-14 moderate; 15-21 severe): 0 Source: Developed by Drs. Tereso Jones, Marilyn Cedeno, Homer Huston and colleagues, with an educational catrina from [employer]. JONNIE-7 Assessment Billing JONNIE-7 Assessment Tool: JONNIE-7 Assessment 49001 Review of Systems Const All systems reviewed & are unremarkable except as noted in HPI and below Card Denies chest pain at rest, Denies chest pain with activity, Denies edema, Denies irregular heart rhythm, Denies claudication, Denies dyspnea, Denies dyspnea on exertion, Denies orthopnea, Denies paroxysmal nocturnal dyspnea and Denies slow heart rate Resp Denies cough, Denies dyspnea and Denies dyspnea on exertion Musc Denies atrophy, Denies deformity and Denies limited range of motion Skin/Breast Denies bleeding lesions, Denies changing lesions and Denies rash Physical exam (Primary Care) Vital Signs: Last Vital Signs BP 118/78 08/24/24 11:00 BMI result Body Mass Index 31.0 BMI Assessment/Plan discussion: High BMI High, discussed plan: lifestyle, weight reduction, dietary and physical activity Tobacco/Smoking Status: Tobacco use Status Tobacco use date assessed 08/24/24 08/24/24 10:53 Patient Tobacco Use Status Former Tobacco user 08/24/24 10:53 Tobacco use type Cigarette 08/24/24 10:53 e-Cigarette/Vaping Use Never Used 08/24/24 10:53 PHQ-9: PHQ-9 Score PHQ-9: Total score 0 08/24/24 11:14 Depression Screening Interpretation: Negative Thrive Assessment: Date of Thrive Assessment Date Thrive assessed 08/24/24 08/24/24 10:53 Currently or been in a relationship where the following occur: No concerns reported Resp Effort & Inspection: normal respiratory effort Auscultation: clear to auscultation bilaterally Cardio Jugular venous distension: no JVD Rate: regular rate Rhythm: regular rhythm Heart sounds: S1 normal heart sound present and S2 normal heart sound present Extrem General: Yes full ROM Results AMB Hemoglobin A1c AMB Hemoglobin A1c 6.0 % Last Edit by RENEA Cooper on 08/24/24 11:03 Results Reviewed Results Reviewed: Laboratory Last Values Hgb A1c (Clinic) 6.0 % (4.0-6.0) 08/24/24 10:49 Coding Level of Care Code Est Pt Level 4 (78425) Complex EM visit Add On G2211 Diagnoses Left leg pain M79.605 Stage 3b chronic kidney disease N18.32 Chronic kidney disease stage 3 subtype: stage 3b (GFR 30-44) Type 2 diabetes mellitus with hyperglycemia, without long-term current use of insulin E11.65 Diabetes mellitus type: type 2 Diabetes mellitus long wall shear operator insulin use: without long wall shear operator use Diabetes mellitus complication status: with hyperglycemia Essential hypertension I10 Kidney transplant recipient Z94.0 Additional Codes JONNIE-7 Assessment Billing - JONNIE-7 Assessment Tool: JONNIE-7 Assessment 59099 ([id number]) PHQ-9 - 67959 - PHQ-9 Billing: Yes ([id number]) Time Spent (min) 22 Assessment & Plan Assessment & Plan (1) Left leg pain: Code(s): M79.605 - Pain in left leg Category: Medical (2) CKD (chronic kidney disease) stage 3, GFR 30-59 ml/min: Code(s): N18.30 - Chronic kidney disease, stage 3 unspecified Category: Medical Qualifiers: Chronic kidney disease stage 3 subtype: stage 3b (GFR 30-44) Qualified Code(s): N18.32 - Chronic kidney disease, stage 3b (3) Diabetes mellitus: Code(s): E11.9 - Type 2 diabetes mellitus without complications Category: Medical Qualifiers: Diabetes mellitus type: type 2 Diabetes mellitus assisted insulin use: without long wall shear operator use Diabetes mellitus complication status: with hyperglycemia Qualified Code(s): E11.65 - Type 2 diabetes mellitus with hyperglycemia (4) Essential hypertension: Code(s): I10 - Essential (primary) hypertension Category: Medical (5) Kidney transplant recipient: Code(s): Z94.0 - Kidney transplant status Category: Surgical Plan The patient's congestion requires comprehensive evaluation, including tests for flu and COVID-19, to plan appropriate management effectively due to prolonged symptoms. An ultrasound of the left foot is advisable to further examine the mass causing pain. Continued monitoring and medication adherence for hypertension post-kidney transplant are crucial, while maintaining hormone balance using calcitriol and other medications to achieve optimal health. Due to existing allergies, careful prescribing practices must be observed. Patient was informed and verbally consented to the use of an ambient scribe for clinic note documentation during this visit. I discussed the chronicity of the patient's symptoms and the necessity for further diagnostic testing, such as flu and COVID-19 tests and an ultrasound for the painful mass in her left foot. The patient understands the importance of these evaluations to guide treatment options adequately. We reviewed her current medication regimen for hypertension management related to her kidney transplant and noted the allergy restrictions that affect her treatment options. Return precautions are emphasized, particularly if symptoms exacerbate or new symptoms emerge. Orders: Orders Lipid Panel Today E78.5 - Hyperlipidemia, unspecified Microalbumin, Random (w Creat) Today R80.9 - Proteinuria, unspecified SARS-CoV2/FLU/RSV Today R09.89 - Other specified symptoms and signs involving the circulatory and respiratory systems US venous duplex LE LT Today M79.605 - Pain in left leg AMB Hemoglobin A1c Today E11.65 - Type 2 diabetes mellitus with hyperglycemia Vitamin D 25-OH Total Today E55.9 - Vitamin D deficiency, unspecified Comprehensive [place]. Panel Fast Today N18.32 - Chronic kidney disease, stage 3b Medications: Changed From oxycodone Partial Fill upon patient request. 5 mg PO BID 28 days PRN 56 tabs 0RF pain To oxycodone Partial Fill upon patient request. 5 mg PO Q8H PRN 84 tabs 0RF pain 28 days Patient Instructions: - Undergo suggested tests for flu and COVID-19. - Schedule an ultrasound for the left foot. - Continue current medication regimen for hypertension. - Practice safety in avoiding allergens such as amlodipine and morphine. - Monitor symptoms and seek immediate care if conditions worsen. - Follow-up as scheduled for further evaluation and treatment adjustments.
[2024-08-24 11:00] VITALS: BP 118/78; BMI 31.0
--- OUTSIDE RECORDS SUMMARY | 2024-08-24 14:01 | XMS_ITS | Clinical Summary ---
Author Organization [facility], Address [address] [place] [address] [place] [address] Phone Care Team Providers Care Gas Truck Driver Name Role Phone Jessica Santamaria MD Primary Care Provider [phone] Allergies Active Allergy Reactions Criticality Noted Date Comments Adhesive Tape Other (see comments) Low 05/19/2019 Diphenhydramine Other (see comments) 05/19/2019 Hydralazine Other (see comments) 09/02/2018 Latex Itching 05/19/2019 Levofloxacin 08/16/2020 Morphine Rash High 10/29/2023 Medications Amitiza 24 MCG capsule TAKE 1 CAPSULE BY MOUTH TWICE DAILY WITH FOOD AND WATER 02/20/2020 Active oxyCODONE (ROXICODONE) 5 MG immediate release tablet Take 5 mg by mouth 2 (two) times a day if needed 09/06/2020 Active NIFEdipine CC (PROCARDIA XL) 60 MG 24 hr tablet Take 1 tablet (60 mg total) by mouth 1 (one) time each day 30 tablet 11 03/12/2021 Active labetalol (NORMODYNE) 200 MG tablet TAKE 1 TABLET BY MOUTH TWICE DAILY IN THE MORNING AND IN THE EVENING 60 tablet 11 07/13/2022 Active atorvastatin (LIPITOR) 40 MG tablet Take 1 tablet (40 mg total) by mouth 1 (one) time each day 90 tablet 3 04/12/2023 Active FREESTYLE LITE test strip 1 each by Other route 1 (one) time each day 08/30/2023 Active metFORMIN (Fortamet) 500 MG 24 hr tablet Take 1 tablet (500 mg total) by mouth 1 (one) time each day with dinner Do not crush, chew, or split. 30 tablet 11 09/21/2023 09/21/19 25 Active Jardiance 10 MG tablet Take by mouth 1 (one) time each day 10/04/2023 Active traZODone (DESYREL) 100 MG tablet Take 100 mg by mouth at night if needed for sleep 10/04/2023 Active calcitriol (ROCALTROL) 0.25 MCG capsule TAKE 1 CAPSULE BY MOUTH 3 TIMES A WEEK 36 capsule 3 01/24/2024 Active Farxiga 10 MG tablet TAKE 1 TABLET BY MOUTH EVERY MORNING 90 tablet 3 03/30/2024 Active tacrolimus (PROGRAF) 1 MG capsule Take 6 capsules (6 mg total) by mouth in the morning and 6 capsules (6 mg total) in the evening. 360 capsule 11 05/09/2024 05/09/20 25 Active mycophenolate (MYFORTIC) 180 MG EC tablet Take 3 tablets (540 mg total) by mouth in the morning and 3 tablets (540 mg total) in the evening. 180 tablet 11 06/02/2024 06/02/19 26 Active Active Problems Problem Noted Date Diagnosed Date [...] Encounters Date Type Department Care Team Description 07/03/2024 4:15 PM EST Office Visit [facility] [address] [place] [address] Shavon Ng FNP-C History of renal transplant (Primary Dx); History of immunosuppressive therapy; Stage 3a chronic kidney disease (HCC) 06/30/2024 Documentation Only [facility] [address] [place] [address] Hiwot Smith MA 06/30/2024 Documentation Only [facility] [address] [place] [address] Hiwot Smith MA 06/02/2024 1:00 PM EST Office Visit [facility] [facility] [address] [place] [address] Zhang Nazario MD 06/02/2024 Refill [facility] [address] [place] [address] Rony Donato PA 06/01/2024 Telephone [facility] [address] [place] [address] Antonia Jackson from Last 3 Months Immunizations Name Administration [...] Sign Reading Time Taken Comments Blood Pressure 129/59 07/03/2024 6:48 PM EST Pulse 77 07/03/2024 6:48 PM EST Temperature 36.3 ??C (97.3 ??F) 10/29/2023 1 0:44 AM EDT Respiratory Rate 16 04/18/2019 12:0 0 PM EST Oxygen Saturation 97% 10/29/2023 10: 44 AM EDT Inhaled Oxygen Concentration - - Weight 72.9 kg (160 lb 12.8 oz) 07/03/2024 6:48 PM EST Height 154.9 cm (5' 1 ) 04/28/2024 11:5 0 AM EST Body Mass Index 30.38 04/28/2024 11:50 AM EST Plan of Treatment Upcoming Encounters Date Type Department Care Team (Late st Contact Info) Description 09/04/2024 3:00 PM EDT Clinical Support [facility] [address] [place] [address] Shavon Ng, REPAIRER EVAPORATOR-C [address] [place] [address] Health Maintenance Due Date Last Done Comments [...] Visual Foot Exam 10/01/2021 Diabetes: Hemoglobin A1C 02/13/202311/13/2 023, 09/09/2022, 05/13/2022, Additional history exists Influenza [...] AM EDT) Hemoglobin A1C 6.4(H) (4.0-5.6) % [facility] Comment: MONITORING: In known diabetic patients, hemoglobin A1c targets should be discussed with health care provider. DIAGNOSTIC USE: ??The [place] Diabetes Association (ADA) and the World Health [...] Supplement 1 Testing performed or reported by [facility], a Service of [facility], [address] [place] [id number] Tate Pham MD, Cisco Network Engineer [facility]# [id number] Blood (Blood, Venous) 11/13/2022 9:47 AM EDT 11/13/2022 9:48 AM EDT Rony [facility] BLOOD ORDERABLES Final Re sult [facility] from Last 3 Months or Most Recently Relevant to Health Maintenance Insurance MICHELLE FUENTES [id number] [facility] MEDICAID MICHELLE FUENTES [id number] MICHELLE FUENTES [id number] Care Teams Gas Truck Driver Relationship Specialty Start Date End Date Jessica Santamaria MD [address] [place] PCP - General 04/04/19
--- OUTSIDE RECORDS SUMMARY | 2024-08-24 14:01 | XMS_ITS | Encounter Summary ---
Author Organization [facility], Address [address] [facility] [address] [place] [address] Phone Care Team Providers Care Interior Design Coordinator Name Role Phone Jessica Santamaria MD Primary Care Provider [phone] Reason for Visit * Reason Comments Med Refill Encounter Details Date Type Department Care Team (Late st Contact Info) Description 06/20/2021 [facility]ill [facility] [address] [place] [address] Rony Donato PA Social History Tobacco Use Types Packs/Day Years [...] Support [facility] [address] [place] [address] Shavon Ng FNP-C [address] [address] documented as of this encounter Visit Diagnoses Not on filedocumented in this encounter Care Teams Interior Design Coordinator Relationship Specialty Start Date End Date Jessica Santamaria MD [address] [place] [address] PCP - General 04/04/19 documented as of this encounter
--- OUTSIDE RECORDS SUMMARY | 2024-08-24 14:01 | XMS_ITS | Encounter Summary ---
Author Organization [facility], Address PO [facility] [address] [place] [address] Phone Care Team Providers Care Application Chemist Name Role Phone Jessica Santamaria MD Primary Care Provider [phone] Reason for Visit * Reason Comments Med Refill Encounter Details Date Type Department Care Team (Late st Contact Info) Description 07/20/2023 Refill [facility] [address] [place] [address] Rony Donato PA Social History Tobacco [...] Support [facility] Of [address] [place] [address] Shavon Ng FNP-C [address] [place] [address] [place] [address] documented as of this encounter Visit Diagnoses Not on filedocumented in this encounter Care Teams Application Chemist Relationship Specialty Start Date End Date Jessica Santamaria MD [address] [place] [address] PCP - General 04/04/19 documented as of this encounter
--- OUTSIDE RECORDS SUMMARY | 2024-08-24 14:01 | XMS_ITS | Encounter Summary ---
Author Organization [facility] Of [facility] Address [address] [place] [address] Phone Care Team Providers Care Oil Field Equipment Mechanic Name Role Phone Jessica Santamaria MD Primary Care Provider [phone] Encounter Details Date Type Department Care Team (Late Contact Info) Description 09/20/2023 Documentation Only [facility] Of [place], [address] [facility] [place] [address] [place]ot [place]UN[place], [place] [address] [place] [address] Social History Tobacco Use Types [...] Support [facility] [place] [address] [facility] [address] Shavon Ng FNP-C [address] [place] [address] documented as of this encounter Visit Diagnoses Not on filedocumented in this encounter Care Teams Oil Field Equipment Mechanic Relationship Specialty Start Date End Date Jessica Santamaria MD [address] [place], [place] PCP - General 04/04/19 documented as of this encounter
--- OUTSIDE RECORDS SUMMARY | 2024-08-24 14:01 | XMS_ITS | Encounter Summary ---
Author Organization [facility], Address PO [facility] [address] [place] [address] Phone Care Team Providers Care Nurse Midwife/Clinical Instructor Name Role Phone Jessica Santamaria MD Primary Care Provider [phone] Reason for Visit * Reason Comments Med Refill Encounter Details Date Type Department Care Team (Late st Contact Info) Description 06/23/2021 Refill [facility] [address] [place] [address] Rony Donato PA Social History Tobacco [...] Support [facility] Of [address] [place] [address] Shavon Ng FNP-C [address] [facility] [place] [address] documented as of this encounter Visit Diagnoses Not on filedocumented in this encounter Care Teams Nurse Midwife/Clinical Instructor Relationship Specialty Start Date End Date Jessica Santamaria MD [address] [place] [address] PCP - General 04/04/19 documented as of this encounter
--- OUTSIDE RECORDS SUMMARY | 2024-08-24 14:01 | XMS_ITS | Encounter Summary ---
Author Organization [facility] Of [facility] Address [address] [place] [address] Phone Care Team Providers Care Loss Control Representative Name Role Phone Jessica Santamaria MD Primary Care Provider [phone] Encounter Details Date Type Department Care Team (Late Contact Info) Description 02/16/2024 Documentation Only [facility] Of [place], [address] [address] Hiwot Smith[place], [place] [address] [place] [address] Social History Tobacco Use Types [...] Support [facility] [place] [address] [address] Shavon Ng FNP-C [address] [place] [address] documented as of this encounter Visit Diagnoses Not on filedocumented in this encounter Care Teams Loss Control Representative Relationship Specialty Start Date End Date Jessica Santamaria MD [address] [place], [place] PCP - General 04/04/19 documented as of this encounter
--- OUTSIDE RECORDS SUMMARY | 2024-08-24 14:01 | XMS_ITS | Encounter Summary ---
Author Organization [facility] Of [facility] Address [address] [place] [address] Phone Care Team Providers Care Instrument Assembler Name Role Phone Jessica Santamaria MD Primary Care Provider Encounter Details Date Type Department Care Team (Late Contact Info) Description 06/30/2024 Documentation Only [facility] Of [place], [address] [facility] [address] [address] [place], [place] [address] [place] [address] Social History Tobacco Use Types [...] Support [facility] [place] [address] [address] Shavon Ng FNP-C [address] [place] [address] documented as of this encounter Visit Diagnoses Not on filedocumented in this encounter Care Teams Instrument Assembler Relationship Specialty Start Date End Date Jessica Santamaria MD [address] [place], [place] PCP - General 04/04/19 documented as of this encounter
--- OUTSIDE RECORDS SUMMARY | 2024-08-24 14:01 | XMS_ITS | Encounter Summary ---
Author Organization [facility], Address PO [facility] [address] [place] [address] Phone Care Team Providers Care Financial Accountant Name Role Phone Jessica Santamaria MD Primary Care Provider [phone] Reason for Visit * Reason Comments Med Refill Encounter Details Date Type Department Care Team (Late st Contact Info) Description 06/11/2021 Refill [facility] [address] [place] [address] Rony Donato PA Social History Tobacco [...] Support [facility] Of [address] [place] [address] Shavon Ng FNP-C [address] [facility] [place] [address] documented as of this encounter Visit Diagnoses Not on filedocumented in this encounter Care Teams Financial Accountant Relationship Specialty Start Date End Date Jessica Santamaria MD [address] [place] [address] PCP - General 04/04/19 documented as of this encounter
--- OUTSIDE RECORDS SUMMARY | 2024-08-24 14:01 | XMS_ITS | Encounter Summary ---
Author Organization [facility] Of [facility] Address [address] [place] [address] Phone Care Team Providers Care Boat Tender Name Role Phone Jessica Santamaria MD Primary Care Provider [phone] Encounter Details Date Type Department Care Team (Late Contact Info) Description 10/05/2023 Documentation Only [facility] Of [place], [address] [place] [address] [place], [place] [address] [place] [address] Social History Tobacco Use Types [...] Support [facility] [place] [address] [place] [address] Shavon Ng FNP-C [address] [place] [address] documented as of this encounter Visit Diagnoses Not on filedocumented in this encounter Care Teams Boat Tender Relationship Specialty Start Date End Date Jessica Santamaria MD [address] [place], [place] PCP - General 04/04/19 documented as of this encounter
--- OUTSIDE RECORDS SUMMARY | 2024-08-24 14:01 | XMS_ITS | Encounter Summary ---
Author Organization [facility] Of [facility] Address [address] [place] [address] Phone Care Team Providers Care Powertrain Control Systems Engineer Name Role Phone Jessica Santamaria MD Primary Care Provider [phone] Encounter Details Date Type Department Care Team (Late Contact Info) Description 11/18/2023 Documentation Only [facility] Of [place], [address] [facility] [place] [address] Hi[place]ot [place]OOK[place], [place] [address] [place] [address] Social History Tobacco Use Types [...] Support [facility] [place] [address] [place] [address] Shavon Ng FNP-C [address] [place] [address] documented as of this encounter Visit Diagnoses Not on filedocumented in this encounter Care Teams Powertrain Control Systems Engineer Relationship Specialty Start Date End Date Jessica Santamaria MD [address] [place], [place] PCP - General 04/04/19 documented as of this encounter
--- OUTSIDE RECORDS SUMMARY | 2024-08-24 14:01 | XMS_ITS | Encounter Summary ---
Author Organization [facility] Of [facility] Address [address] [place] [address] Phone Care Team Providers Care Oncology Physician Name Role Phone Jessica Santamaria MD Primary Care Provider [phone] Encounter Details Date Type Department Care Team (Late Contact Info) Description 09/20/2023 Documentation Only [facility] Of [place], [address] [facility] [address] [address] [place]ot [place], [place] [address] [place] [address] Social History Tobacco Use Types [...] Support [facility] [place] [address] [place] [address] Shavon Ng FNP-C [address] [place] [address] documented as of this encounter Visit Diagnoses Not on filedocumented in this encounter Care Teams Oncology Physician Relationship Specialty Start Date End Date Jessica Santamaria MD [address] [place], [place] PCP - General 04/04/19 documented as of this encounter
--- OUTSIDE RECORDS SUMMARY | 2024-08-24 14:01 | XMS_ITS | Encounter Summary ---
Author Organization [facility] Of [facility] Address [address] [place] [address] Phone Care Team Providers Care Anime Designer Name Role Phone Jessica Santamaria MD Primary Care Provider [phone] Encounter Details Date Type Department Care Team (Late Contact Info) Description 09/28/2023 Documentation Only [facility] Of [place], [address] [facility] [place] [address] [place], [place] [address] [place] [address] Social History Tobacco Use Types [...] Support [facility] [place] [address] [facility] [address] [place] [address] Shavon Ng FNP-C [address] [place] [address] documented as of this encounter Visit Diagnoses Not on filedocumented in this encounter Care Teams Anime Designer Relationship Specialty Start Date End Date Jessica Santamaria MD [address] [place], [place] PCP - General 04/04/19 documented as of this encounter
--- OUTSIDE RECORDS SUMMARY | 2024-08-24 14:01 | XMS_ITS | Encounter Summary ---
Author Organization [facility] Of [facility] Address [address] [place] [address] Phone Care Team Providers Care Employment Consultant Name Role Phone Jessica Santamaria MD Primary Care Provider [phone] Encounter Details Date Type Department Care Team (Late Contact Info) Description 04/28/2024 Documentation Only [facility] [place], [address] [place] [address] [place], [place] [address] [place] [address] Social History Tobacco Use Types [...] Support [facility] [place] [address] [place] [address] Shavon Ng FNP-C [address] [place] [address] documented as of this encounter Visit Diagnoses Not on filedocumented in this encounter Care Teams Employment Consultant Relationship Specialty Start Date End Date Jessica Santamaria MD [address] [place], [place] PCP - General 04/04/19 documented as of this encounter
--- OUTSIDE RECORDS SUMMARY | 2024-08-24 14:01 | XMS_ITS | Encounter Summary ---
Author Organization [facility] Of [facility] Address [address] [place] [address] Phone Care Team Providers Care Paid Search Marketing Analyst Name Role Phone Jessica Santamaria MD Primary Care Provider [phone] Encounter Details Date Type Department Care Team (Late Contact Info) Description 06/30/2024 Documentation Only [facility] [place], [address] [facility] [place] [address] [place], [place] [address] [place] [address] Social History Tobacco Use Types [...] Support [facility] [place] [address] [place] [address] Shavon Ng FNP-C [address] [place] [address] documented as of this encounter Visit Diagnoses Not on filedocumented in this encounter Care Teams Paid Search Marketing Analyst Relationship Specialty Start Date End Date Jessica Santamaria MD [address] [place], [place] PCP - General 04/04/19 documented as of this encounter
--- OUTSIDE RECORDS SUMMARY | 2024-08-24 14:01 | XMS_ITS | Encounter Summary ---
Author Organization [facility] Of [facility] Address [address] [place] [address] Phone Care Team Providers Care Montessori Preschool Teacher Name Role Phone Jessica Santamaria MD Primary Care Provider [phone] Encounter Details Date Type Department Care Team (Late Contact Info) Description 08/20/2023 Documentation Only [facility] Of [place], [address] [place] [address] [place]ot [place], [place] [address] [place] [address] Social History Tobacco Use Types [...] Support [facility] [place] [address] [place] [address] Shavon Ng FNP-C [address] [place] [address] documented as of this encounter Visit Diagnoses Not on filedocumented in this encounter Care Teams Montessori Preschool Teacher Relationship Specialty Start Date End Date Jessica Santamaria MD [address] [place], [place] PCP - General 04/04/19 documented as of this encounter
--- OUTSIDE RECORDS SUMMARY | 2024-08-24 14:01 | XMS_ITS | Encounter Summary ---
Author Organization [facility] Address [address] [address] Phone Care Team Providers Care Interstate Planner Name Role Phone Jessica Santamaria MD Primary Care Provider [phone] Reason for Visit * Reason Comments Med Refill Encounter Details Date Type Department Care Team (Late st Contact Info) Description 04/12/2023 Refill [facility], [address] [place] [address] Alvaro Stratton MD [address] [facility] [address] [place] [address] Social History Tobacco Use Types [...] Clinical Support [facility] [address] [place] [address] Shavon Ng FNP-C [address] [place] [address] documented as of this encounter Visit Diagnoses Not on filedocumented in this encounter Care Teams Interstate Planner Relationship Specialty Start Date End Date Jessica Santamaria MD [address] [place], [place] PCP - General 04/04/19 documented as of this encounter
--- OUTSIDE RECORDS SUMMARY | 2024-08-24 14:02 | XMS_ITS | Encounter Summary ---
Author Organization [facility] Of [place], Address [address] [place] [address] Phone Care Team Providers Care Brick Cleaner Name Role Phone Jessica Santamaria MD Primary Care Provider [phone] Reason for Visit * Reason Comments Med Refill Encounter Details Date Type Department Care Team (Late st Contact Info) Description 04/16/2022 Refill [facility] [address] [place] [address] Rony Donato PA Social History Tobacco [...] Clinical Support [facility] [address] [facility] [address] Shavon Ng FNP-C [address] [facility] [address] documented as of this encounter Visit Diagnoses Not on filedocumented in this encounter Care Teams Brick Cleaner Relationship Specialty Start Date End Date Jessica Santamaria MD [address] [place], [place] PCP - General 04/04/19 documented as of this encounter
--- OUTSIDE RECORDS SUMMARY | 2024-08-24 14:02 | XMS_ITS | Encounter Summary ---
Author Organization [facility], Address PO [facility] [address] [place] [address] Phone Care Team Providers Care Barrel Endshaker Adjuster Name Role Phone Jessica Santamaria MD Primary Care Provider [phone] Reason for Visit * Reason Comments Med Refill Encounter Details Date Type Department Care Team (Late st Contact Info) Description 06/23/2022 Refill [facility] [address] [place] [address] Rony Donato PA Social History Tobacco [...] Support [facility] Of [address] [place] [address] Shavon Ng FNP-C [address] [facility] [address] documented as of this encounter Visit Diagnoses Not on filedocumented in this encounter Care Teams Barrel Endshaker Adjuster Relationship Specialty Start Date End Date Jessica Santamaria MD [address] [place] [address] PCP - General 04/04/19 documented as of this encounter
--- OUTSIDE RECORDS SUMMARY | 2024-08-24 14:02 | XMS_ITS | Encounter Summary ---
Author Organization [facility], Address PO [facility] [address] [place] [address] Phone Care Team Providers Care Station Jailer Name Role Phone Jessica Santamaria MD Primary Care Provider [phone] Reason for Visit * Reason Comments Med Refill Encounter Details Date Type Department Care Team (Late st Contact Info) Description 08/24/2022 Refill [facility] [address] [place] [address] Rony Donato PA Social History Tobacco [...] Support [facility] Of [address] [place] [address] Shavon Ng FNP-C [address] [facility] [place] [address] documented as of this encounter Visit Diagnoses Not on filedocumented in this encounter Care Teams Station Jailer Relationship Specialty Start Date End Date Jessica Santamaria MD [address] [place] [address] PCP - General 04/04/19 documented as of this encounter
--- OUTSIDE RECORDS SUMMARY | 2024-08-24 14:02 | XMS_ITS | Encounter Summary ---
Author Organization [facility] Of [place], Address [address] [address] Phone Care Team Providers Care Hcc Coders Name Role Phone Jessica Santamaria MD Primary Care Provider [phone] Reason for Visit * Reason Comments Med Refill Encounter Details Date Type Department Care Team (Late st Contact Info) Description 07/13/2022 Refill [facility] [address] [place] [address] Alvaro Stratton MD [address] [place] [address] [place] [address] Social History Tobacco Use Types [...] Clinical Support [facility] [address] [facility] [place] [address] Shavon Ng FNP-C [address] [place] [address] documented as of this encounter Visit Diagnoses Not on filedocumented in this encounter Care Teams Hcc Coders Relationship Specialty Start Date End Date Jessica Santamaria MD [address] [place], [place] PCP - General 04/04/19 documented as of this encounter
== END 2024-08-24 11:28 | disposition home or self-care (01) ==
LOC: HO.HMCH 10:43
PROVIDERS: PCP Internal Medicine; Visit Provider Internal Medicine
DX: M79.605 Pain in left leg (principal); N18.32 Chronic kidney disease, stage 3b; E11.65 Type 2 diabetes mellitus with hyperglycemia; I10 Essential (primary) hypertension; Z94.0 Kidney transplant status

== ENCOUNTER → 2024-08-24 10:42 | Outpatient (BNVA) | payer OTHER, SELFPAY | LOC: CF 11:44 | PROVIDERS: PCP Internal Medicine; Visit Provider Internal Medicine | DX: R09.89 Other specified symptoms and signs involving the circulatory and respiratory systems (principal); M79.672 Pain in left foot; I12.9 Hypertensive chronic kidney disease with stage 1 through stage 4 chronic kidney disease, or unspecified chronic kidney disease; E11.22 Type 2 diabetes mellitus with diabetic chronic kidney disease; E11.65 Type 2 diabetes mellitus with hyperglycemia; M79.605 Pain in left leg; N18.32 Chronic kidney disease, stage 3b; E55.9 Vitamin D deficiency, unspecified; R80.9 Proteinuria, unspecified; E78.5 Hyperlipidemia, unspecified; Z94.0 Kidney transplant status; Z79.891 Long term (current) use of opiate analgesic | CPT/HCPCS: 83036; 96127; 99212 ==

== ENCOUNTER 2024-08-24 11:45 | Outpatient (REF) | payer OTHER, SELFPAY ==
--- NOTE | ~2024-08-24 | US_ITS ---
EXAMINATION: US TRIPLEX LOWER EXTREMITY, LEFT CLINICAL INFORMATION: Pain in left leg. COMPARISON: 11/10/2017. TECHNIQUE: Color-flow triplex imaging with spectral analysis and compression Doppler were performed on the left lower extremity. FINDINGS: Respiratory variation, normal compression and augmented flow are noted throughout the left lower extremity. The visualized common femoral vein, superficial femoral vein, profunda femoral vein, popliteal vein and midcalf peroneal and posterior tibial venous segments show no evidence of deep venous thrombosis. There is no Patel's cyst. No abnormality is evident in the left mid to lateral calf in the region of acute pain. US/US venous duplex LE LT IMPRESSION: No evidence of deep venous thrombosis involving the left lower extremity. Electronically signed by: Mack Cooper MD 08/24/2024 12:50 PM EDT
[2024-08-24 12:49] LABS: Influenza A PCR NEGATIVE (Negative); Influenza B PCR NEGATIVE (Negative); Resp Syncy Virus RNA Qual PCR NEGATIVE (Negative); SARS COV2 PCR INHOUSE NEGATIVE (Negative)
== END 2024-08-24 11:46 | disposition home or self-care (01) ==
LOC: HO.US 11:45
PROVIDERS: PCP Internal Medicine; Visit Provider Internal Medicine
DX: M79.605 Pain in left leg (principal); R09.89 Other specified symptoms and signs involving the circulatory and respiratory systems
CPT/HCPCS: 0241U; 93971

== ENCOUNTER → 2024-08-24 12:06 | Outpatient (BNV) | payer OTHER, SELFPAY | PROVIDERS: PCP Internal Medicine; Visit Provider Radiology Diagnostic Radiology | DX: M79.605 Pain in left leg (principal) | CPT/HCPCS: 93971 ==

== ENCOUNTER 2024-08-25 08:49 | Outpatient (REF) | payer OTHER, SELFPAY ==
[2024-08-25 11:34] LABS: Alanine Aminotransferase 22 U/L (0-31); Albumin Level 4.5 g/dL (3.5-5.0); Alkaline Phosphatase 75 U/L (39-117); Anion Gap 11 (12-20); Aspartate Amino Transferase 23 U/L (5-31); Bilirubin Total 0.4 mg/dL (0.0-1.0); Blood Urea Nitrogen 22 mg/dL (9-16); Calcium 10.1 mg/dL (8.4-10.2); Carbon Dioxide 26 mmol/L (22-29); Chloride 110 mmol/L (96-108); Cholesterol 115 mg/dL (<200); Estimated Glomerular Filt Rate 40; Glucose Fasting 117 mg/dL (60-99); HDL Cholesterol 30 mg/dL (>40); LDL Cholesterol Calculated 56 mg/dL (<100); Potassium 4.6 mmol/L (3.3-5.1); Sodium 142 mmol/L (135-145); Total Protein 7.2 g/dL (6.5-8.0); Triglycerides 146 mg/dL (<150); Vitamin D 25-OH Total 42.2 ng/mL (>30)
[2024-08-25 12:03] LABS: Creatinine Urine 200.95 mg/dL; Microalbum/Creatinine Ratio Ur 21.3 ug/mg cr (<30)
== END 2024-08-25 08:50 | disposition home or self-care (01) ==
LOC: HO.LAB 08:49
PROVIDERS: PCP Internal Medicine; Visit Provider Internal Medicine
DX: E11.9 Type 2 diabetes mellitus without complications (principal); E78.5 Hyperlipidemia, unspecified; E55.9 Vitamin D deficiency, unspecified
CPT/HCPCS: 36415; 80053; 80061; 82043; 82306; 82570

== ENCOUNTER 2024-09-18 10:03 | Outpatient (REF) | payer OTHER, SELFPAY ==
--- OUTSIDE RECORDS SUMMARY | 2024-09-18 10:08 | XMS_ITS | Encounter Summary ---
Author Organization [facility] Of [place], Address [address] [place] [address] Phone Care Team Providers Care Commercial Account Manager Name Role Phone Jessica Santamaria MD Primary Care Provider [phone] Encounter Details Date Type Department Care Team (Late st Contact Info) Description 06/30/2024 Documentation Only [facility] [place], [address] [place] [place] [address] [place], [place] [address] [place] [address] Social History Tobacco Use Types [...] as of this encounter Plan of Treatment Not on file documented as of this encounter Visit Diagnoses Not on filedocumented in this encounter Care Teams Commercial Account Manager Relationship Specialty Start Date End Date Jessica Santamaria MD [address] [place], [place] PCP - General 04/04/19 documented as of this encounter
--- OUTSIDE RECORDS SUMMARY | 2024-09-18 10:08 | XMS_ITS | Encounter Summary ---
Author Organization [facility] Of [place], Address [address] [place] [address] Phone Care Team Providers Care Ct Mri Technologist Name Role Phone Jessica Santamaria MD Primary Care Provider [phone] Reason for Visit * Reason Comments Med Refill Encounter Details Date Type Department Care Team (Late st Contact Info) Description 06/11/2021 Refill [facility] [address] [facility] [address] [address] [place] [place] [address] Rony Donato PA Social History Tobacco [...] on filedocumented in this encounter Care Teams Ct Mri Technologist Relationship Specialty Start Date End Date Jessica Santamaria MD [address] [place], [place] PCP - General 04/04/19 documented as of this encounter
--- OUTSIDE RECORDS SUMMARY | 2024-09-18 10:08 | XMS_ITS | Encounter Summary ---
Author Organization [facility] Of [place], Address [address] [place] [address] Phone Care Team Providers Care Cone Chocolate Dipper Name Role Phone Jessica Santamaria MD Primary Care Provider [phone] Encounter Details Date Type Department Care Team (Late st Contact Info) Description 02/16/2024 Documentation Only [facility] [place], [address] [place] [address] [place], [place] [address] [place] [address] Social History Tobacco Use Types [...] on filedocumented in this encounter Care Teams Cone Chocolate Dipper Relationship Specialty Start Date End Date Jessica Santamaria MD [address] [place], [place] PCP - General 04/04/19 documented as of this encounter
--- OUTSIDE RECORDS SUMMARY | 2024-09-18 10:08 | XMS_ITS | Encounter Summary ---
Author Organization [facility] [place], Address [address] [place] [address] Phone Care Team Providers Care Unemployment Claims Adjudicator Name Role Phone Jessica Santamaria MD Primary Care Provider [phone] Reason for Visit * Reason Comments Med Refill Encounter Details Date Type Department Care Team (Late st Contact Info) Description 06/23/2021 Refill [facility] [address] [place] [address] Rony Donato PA Social History [...] on filedocumented in this encounter Care Teams Unemployment Claims Adjudicator Relationship Specialty Start Date End Date Jessica Santamaria MD [address] [place], [place] PCP - General 04/04/19 documented as of this encounter
--- OUTSIDE RECORDS SUMMARY | 2024-09-18 10:08 | XMS_ITS | Encounter Summary ---
Author Organization [facility] [place], Address [address] [place] [address] Phone Care Team Providers Care Donor Services Coordinator Name Role Phone Jessica Santamaria MD Primary Care Provider Encounter Details Date Type Department Care Team (Late st Contact Info) Description 04/28/2024 Documentation Only [facility] [place], [address] [place] [address] [place], [place] [address] [place] [address] Social History Tobacco Use Types [...] on filedocumented in this encounter Care Teams Donor Services Coordinator Relationship Specialty Start Date End Date Jessica Santamaria MD [address] [place], [place] PCP - General 04/04/19 documented as of this encounter
--- OUTSIDE RECORDS SUMMARY | 2024-09-18 10:08 | XMS_ITS | Clinical Summary ---
Author Organization [facility] [place], Address [address] [place] [address] [place] [address] Phone Care Team Providers Care Applied Researcher Name Role Phone Jessica Santamaria MD Primary Care Provider [phone] Allergies Active Allergy Reactions Criticality Noted Date [...] Encounters Date Type Department Care Team Description 09/15/2024 Orders Only [facility] [place] [address] [place] [address] Zoe Vásquez, RN Stage 3b chronic kidney disease (HCC) (Primary Dx); History of renal transplant; History of immunosuppressive therapy; Type 2 diabetes mellitus without complication (HCC); Secondary hyperparathyroidism (HCC); Hyperglycemia, not otherwise specified; Hypomagnesemia; Iron deficiency anemia, not otherwise specified 09/15/2024 Telephone [facility] [address] [place] [address] RossKaryn 07/03/2024 4:15 PM EST Office Visit [facility] [address] [place] [address] Shavon Ng FNP-C History of renal transplant (Primary Dx); History of immunosuppressive therapy; Stage 3a chronic kidney disease (HCC) 06/30/2024 Documentation Only [facility] [address] [place] [address] Hiwot Smith MA 06/30/2024 Documentation Only [facility] [address] [place] [address] Hiwot Smith MA from Last 3 Months Immunizations Immunization Administration Dates Next Due Influenza Split High [...] 04/28/2024 11:50 AM EST Plan of Treatment Health Maintenance Due Date Last Done Comments Breast Cancer Screening 1965 Hepatitis B Vaccine (1 of 3 - 19+ 3-dose series) 1985 Pneumococcal Vaccine: 50+ Ye ars (1 of 2 - PCV) 1985 Colonoscopy (Post-Transplant Patient) 01/10/2020 Mammogram (Post-Transplant Patient) 01/10/2020 Pelvic Exam (Post-Transplant Patient) 01/10/2020 Diabetes: Ophthalmology Exam 10/01/2021 Diabetes: Pedal Pulse Checked 10/01/2021 Diabetes: Sensory Foot Exam 10/01/2021 Diabetes: Visual Foot Exam 10/01/2021 Diabetes: Hemoglobin A1C 02/13/202311/13/2 023, 09/09/2022, 05/13/2022, Additional history exists Influenza Vaccine (Season Ended) 2025 04/08/2020, 04/06/2019, 06/02/2018, Additional history exists Procedures Procedure [...] AM EDT) Hemoglobin A1C 6.4(H) (4.0-5.6) % [facility] Comment: MONITORING: In known diabetic patients, hemoglobin A1c targets should be discussed with health care provider. DIAGNOSTIC USE: ??The [place] Diabetes Association (ADA) and the World Health [...] Supplement 1 Testing performed or reported by [facility], a Service of [facility], [address] [place] [address] Tate Pham MD, Integration Analyst [facility]# [id number] Blood (Blood, Venous) 11/13/2022 9:47 AM EDT 11/13/2022 9:48 AM EDT Rony [facility] BLOOD ORDERABLES Final Re sult [facility] from Last 3 Months or Most Recently Relevant to Health Maintenance Insurance [facility] Medicaid Care Teams Applied Researcher Relationship Specialty Start Date End Date Jessica Santamaria MD [address] [place], [place] PCP - General 04/04/19
--- OUTSIDE RECORDS SUMMARY | 2024-09-18 10:08 | XMS_ITS | Encounter Summary ---
Author Organization [facility] [place], Address [address] [place] [address] Phone Care Team Providers Care Credit Card Analyst Name Role Phone Jessica Santamaria MD Primary Care Provider [phone] Reason for Visit * Reason Comments Med Refill Encounter Details Date Type Department Care Team (Late st Contact Info) Description 06/20/2021 Refill [facility] [address] [place] [address] Rony Donato PA Social History [...] on filedocumented in this encounter Care Teams Credit Card Analyst Relationship Specialty Start Date End Date Jessica Santamaria MD [address] [place], [place] PCP - General 04/04/19 documented as of this encounter
--- OUTSIDE RECORDS SUMMARY | 2024-09-18 10:08 | XMS_ITS | Encounter Summary ---
Author Organization [facility] [place], Address [address] [place] [address] Phone Care Team Providers Care Telephone Service Representative Name Role Phone Jessica Santamaria MD Primary Care Provider [phone] Encounter Details Date Type Department Care Team (Late st Contact Info) Description 06/30/2024 Documentation Only [facility] [place], [address] [place] [place] [address] [place], [place] [address] [place] [address] Social History Tobacco Use Types [...] on filedocumented in this encounter Care Teams Telephone Service Representative Relationship Specialty Start Date End Date Jessica Santamaria MD [address] [place], [place] PCP - General 04/04/19 documented as of this encounter
--- OUTSIDE RECORDS SUMMARY | 2024-09-18 10:08 | XMS_ITS | Encounter Summary ---
Author Organization [facility] [place], Address [address] [place] [address] Phone Care Team Providers Care Subscription Crew Leader Name Role Phone Jessica Santamaria MD Primary Care Provider [phone] Encounter Details Date Type Department Care Team (Late st Contact Info) Description 09/15/2024 Telephone [facility] [place], [address] [place] [address] Karyn Ross [address] [place] [address] Social History Tobacco Use Types Packs/Day [...] encounter Miscellaneous Notes * Telephone Encounter - Karyn Ross - 09/15/2024 1:15 PM EDT Call from [place] to report she's been experiencing nausea, vomiting, diarrhea for the past week andfistula site is very tender and painful. Please return the call [phone] - thank you documented in this encounter Plan of Treatment Not on file documented as of this encounter Visit Diagnoses Not on filedocumented in this encounter Care Teams Subscription Crew Leader Relationship Specialty Start Date End Date Jessica Santamaria MD [address] [place], [place] PCP - General 04/04/19 documented as of this encounter
--- OUTSIDE RECORDS SUMMARY | 2024-09-18 10:08 | XMS_ITS | Encounter Summary ---
Author Organization [facility], Address [address] [place] [address] Phone Care Team Providers Care Medical Record Assistant Name Role Phone Jessica Santamaria MD Primary Care Provider [phone] Encounter Details Date Type Department Care Team (Latest Contact Info) Description 09/15/2024 Orders Only [facility] [address] [place] [address] Zoe Vásquez, ANABELL [address] [place] [address] [place] [address] Stage 3b chronic kidney disease (HCC) (Primary Dx); History of renal transplant; History of immunosuppressive therapy; Type 2 diabetes mellitus without complication (HCC); Secondary hyperparathyroidism (HCC); Hyperglycemia, not otherwise specified; Hypomagnesemia; Iron deficiency anemia, not otherwise specified Social History Tobacco Use Types Packs/Day Years [...] as of this encounter Plan of Treatment Scheduled Orders Name Type Priority Associated Diagnoses Orde r Schedule Tacrolimus, Highly Sensitive, LC/MS/MS Lab Routine Stage 3b chronic kidney disease (HCC) History of renal transplant History of immunosuppressive therapy Type 2 diabetes mellitus without complication (HCC) Secondary hyperparathyroidism (HCC) Hyperglycemia, not otherwise specified Hypomagnesemia Iron deficiency anemia, not otherwise specified Expected: 09/15/2024, Expires: 10/15/2025 Mycophenolic Acid and Metabo. Lab Routine Stage 3b chronic kidney disease (HCC) History of renal transplant History of immunosuppressive therapy Type 2 diabetes mellitus without complication (HCC) Secondary hyperparathyroidism (HCC) Hyperglycemia, not otherwise specified Hypomagnesemia Iron deficiency anemia, not otherwise specified Expected: 09/15/2024, Expires: 10/15/2025 Renal Function Panel Lab Routine Stage 3b chronic kidney disease (HCC) History of renal transplant History of immunosuppressive therapy Type 2 diabetes mellitus without complication (HCC) Secondary hyperparathyroidism (HCC) Hyperglycemia, not otherwise specified Hypomagnesemia Iron deficiency anemia, not otherwise specified Expected: 09/15/2024, Expires: 10/15/2025 CBC and Differential Lab Routine Stage 3b chronic kidney disease (HCC) History of renal transplant History of immunosuppressive therapy Type 2 diabetes mellitus without complication (HCC) Secondary hyperparathyroidism (HCC) Hyperglycemia, not otherwise specified Hypomagnesemia Iron deficiency anemia, not otherwise specified Expected: 09/15/2024, Expires: 10/15/2025 Magnesium Lab Routine Stage 3b chronic kidney disease (HCC) History of renal transplant History of immunosuppressive therapy Type 2 diabetes mellitus without complication (HCC) Secondary hyperparathyroidism (HCC) Hyperglycemia, not otherwise specified Hypomagnesemia Iron deficiency anemia, not otherwise specified Expected: 09/15/2024, Expires: 10/15/2025 Hemoglobin A1c Lab Routine Stage 3b chronic kidney disease (HCC) History of renal transplant History of immunosuppressive therapy Type 2 diabetes mellitus without complication (HCC) Secondary hyperparathyroidism (HCC) Hyperglycemia, not otherwise specified Hypomagnesemia Iron deficiency anemia, not otherwise specified Expected: 09/15/2024, Expires: 10/15/2025 AST Lab Routine Stage 3b chronic kidney disease (HCC) History of renal transplant History of immunosuppressive therapy Type 2 diabetes mellitus without complication (HCC) Secondary hyperparathyroidism (HCC) Hyperglycemia, not otherwise specified Hypomagnesemia Iron deficiency anemia, not otherwise specified Expected: 09/15/2024, Expires: 10/15/2025 ALT Lab Routine Stage 3b chronic kidney disease (HCC) History of renal transplant History of immunosuppressive therapy Type 2 diabetes mellitus without complication (HCC) Secondary hyperparathyroidism (HCC) Hyperglycemia, not otherwise specified Hypomagnesemia Iron deficiency anemia, not otherwise specified Expected: 09/15/2024, Expires: 10/15/2025 CK Lab Routine Stage 3b chronic kidney disease (HCC) History of renal transplant History of immunosuppressive therapy Type 2 diabetes mellitus without complication (HCC) Secondary hyperparathyroidism (HCC) Hyperglycemia, not otherwise specified Hypomagnesemia Iron deficiency anemia, not otherwise specified Expected: 09/15/2024, Expires: 10/15/2025 Ferritin Lab Routine Stage 3b chronic kidney disease (HCC) History of renal transplant History of immunosuppressive therapy Type 2 diabetes mellitus without complication (HCC) Secondary hyperparathyroidism (HCC) Hyperglycemia, not otherwise specified Hypomagnesemia Iron deficiency anemia, not otherwise specified Expected: 09/15/2024, Expires: 10/15/2025 Iron Panel (Fe, TIBC, TSAT) Lab Routine Stage 3b chronic kidney disease (HCC) History of renal transplant History of immunosuppressive therapy Type 2 diabetes mellitus without complication (HCC) Secondary hyperparathyroidism (HCC) Hyperglycemia, not otherwise specified Hypomagnesemia Iron deficiency anemia, not otherwise specified Expected: 09/15/2024, Expires: 10/15/2025 PTH, Intact Lab Routine Stage 3b chronic kidney disease (HCC) History of renal transplant History of immunosuppressive therapy Type 2 diabetes mellitus without complication (HCC) Secondary hyperparathyroidism (HCC) Hyperglycemia, not otherwise specified Hypomagnesemia Iron deficiency anemia, not otherwise specified Expected: 09/15/2024, Expires: 10/15/2025 Urine Albumin / Creatinine Ratio Lab Routine Stage 3b chronic kidney disease (HCC) History of renal transplant History of immunosuppressive therapy Type 2 diabetes mellitus without complication (HCC) Secondary hyperparathyroidism (HCC) Hyperglycemia, not otherwise specified Hypomagnesemia Iron deficiency anemia, not otherwise specified Expected: 09/15/2024, Expires: 10/15/2025 Urinalysis, Complete w/reflex to Culture Lab Routine Stage 3b chronic kidney disease (HCC) History of renal transplant History of immunosuppressive therapy Type 2 diabetes mellitus without complication (HCC) Secondary hyperparathyroidism (HCC) Hyperglycemia, not otherwise specified Hypomagnesemia Iron deficiency anemia, not otherwise specified Expected: 09/15/2024, Expires: 10/15/2025 CMV PCR Quantitative Lab Routine Stage 3b chronic kidney disease (HCC) History of renal transplant History of immunosuppressive therapy Type 2 diabetes mellitus without complication (HCC) Secondary hyperparathyroidism (HCC) Hyperglycemia, not otherwise specified Hypomagnesemia Iron deficiency anemia, not otherwise specified Expected: 09/15/2024, Expires: 10/15/2025 documented as of this encounter Visit Diagnoses Diagnosis Stage 3b chronic kidney disease (HCC)- Primary History of renal transplant History of immunosuppressive therapy Type 2 diabetes mellitus without complication (HCC) Secondary hyperparathyroidism (HCC) Hyperglycemia, not otherwise specified Hypomagnesemia Iron deficiency anemia, not otherwise specified documented in this encounter Care Teams Medical Record Assistant Relationship Specialty Start Date End Date Jessica Santamaria MD [address] [place], [place] PCP - General 04/04/19 documented as of this encounter
--- OUTSIDE RECORDS SUMMARY | 2024-09-18 10:09 | XMS_ITS | Encounter Summary ---
Author Organization [facility] [place], Address [address] [place] [address] Phone Care Team Providers Care Welding Manager Name Role Phone Jessica Santamaria MD Primary Care Provider Encounter Details Date Type Department Care Team (Late st Contact Info) Description 11/18/2023 Documentation Only [facility] [place], [address] [place] [address] [place], [place] [address] [place] [address] Social History Tobacco Use Types [...] on filedocumented in this encounter Care Teams Welding Manager Relationship Specialty Start Date End Date Jessica Santamaria MD [address] [place], [place] PCP - General 04/04/19 documented as of this encounter
--- OUTSIDE RECORDS SUMMARY | 2024-09-18 10:09 | XMS_ITS | Encounter Summary ---
Author Organization [facility] [place], Address [address] [address] Phone Care Team Providers Care Corporate Health Consultant Name Role Phone Jessica Santamaria MD Primary Care Provider [phone] Reason for Visit * Reason Comments Med Refill Encounter Details Date Type Department Care Team (Late st Contact Info) Description 04/12/2023 Refill [facility] [place], [address] [place] [address] Alvaro Stratton MD [address] [place] [address] [place] [address] Social History Tobacco Use Types Packs/Day Years [...] on filedocumented in this encounter Care Teams Corporate Health Consultant Relationship Specialty Start Date End Date Jessica Santamaria MD [address] [place] [address] PCP - General 04/04/19 documented as of this encounter
--- OUTSIDE RECORDS SUMMARY | 2024-09-18 10:09 | XMS_ITS | Encounter Summary ---
Author Organization [facility] [place], Address [address] [place] [address] Phone Care Team Providers Care Fourth Grade Teacher Name Role Phone Jessica Santamaria MD Primary Care Provider [phone] Reason for Visit * Reason Comments Med Refill Encounter Details Date Type Department Care Team (Late st Contact Info) Description 04/16/2022 Refill [facility] [address] [place] [address] Rony Donato PA Social History [...] on filedocumented in this encounter Care Teams Fourth Grade Teacher Relationship Specialty Start Date End Date Jessica Santamaria MD [address] [place], [place] PCP - General 04/04/19 documented as of this encounter
--- OUTSIDE RECORDS SUMMARY | 2024-09-18 10:09 | XMS_ITS | Encounter Summary ---
Author Organization [facility] [place], Address [address] [place] [address] Phone Care Team Providers Care Smoking Pipe Coater Name Role Phone Jessica Santamaria MD Primary Care Provider [phone] Encounter Details Date Type Department Care Team (Late st Contact Info) Description 09/20/2023 Documentation Only [facility] [place], [address] [place] [place] [address] [place], [place] [address] [place] [address] Social History Tobacco Use Types [...] on filedocumented in this encounter Care Teams Smoking Pipe Coater Relationship Specialty Start Date End Date Jessica Santamaria MD [address] [place], [place] PCP - General 04/04/19 documented as of this encounter
--- OUTSIDE RECORDS SUMMARY | 2024-09-18 10:09 | XMS_ITS | Encounter Summary ---
Author Organization [facility] [place], Address [address] [place] [address] Phone Care Team Providers Care Transportation Clerk Name Role Phone Jessica Santamaria MD Primary Care Provider [phone] Encounter Details Date Type Department Care Team (Late st Contact Info) Description 09/20/2023 Documentation Only [facility] [place], [address] [place] [address] [place], [place] [address] [place] [address] Social History Tobacco Use Types [...] on filedocumented in this encounter Care Teams Transportation Clerk Relationship Specialty Start Date End Date Jessica Santamaria MD [address] [place], [place] PCP - General 04/04/19 documented as of this encounter
--- OUTSIDE RECORDS SUMMARY | 2024-09-18 10:09 | XMS_ITS | Encounter Summary ---
Author Organization [facility] [place], Address [address] [place] [address] Phone Care Team Providers Care Wood Tile Installer Name Role Phone Jessica Santamaria MD Primary Care Provider [phone] Reason for Visit * Reason Comments Med Refill Encounter Details Date Type Department Care Team (Late st Contact Info) Description 07/20/2023 Refill [facility] [address] [place] [address] Rony Donato PA Social History [...] on filedocumented in this encounter Care Teams Wood Tile Installer Relationship Specialty Start Date End Date Jessica Santamaria MD [address] [place], [place] PCP - General 04/04/19 documented as of this encounter
--- OUTSIDE RECORDS SUMMARY | 2024-09-18 10:09 | XMS_ITS | Encounter Summary ---
Author Organization [facility] [place], Address [address] [address] Phone Care Team Providers Care Quill Collector Name Role Phone Jessica Santamaria MD Primary Care Provider [phone] Reason for Visit * Reason Comments Med Refill Encounter Details Date Type Department Care Team (Late st Contact Info) Description 07/13/2022 Refill [facility] [address] [place] [address] Alvaro Stratton MD [address] [place] [address] [place] [address] [place] [id number] Social History Tobacco Use Types Packs/Day Years [...] on filedocumented in this encounter Care Teams Quill Collector Relationship Specialty Start Date End Date Jessica Santamaria MD [address] [place] [address] PCP - General 04/04/19 documented as of this encounter
--- OUTSIDE RECORDS SUMMARY | 2024-09-18 10:09 | XMS_ITS | Encounter Summary ---
Author Organization [facility] [place], Address [address] [place] [address] Phone Care Team Providers Care Press Officer Name Role Phone Jessica Santamaria MD Primary Care Provider [phone] Reason for Visit * Reason Comments Med Refill Encounter Details Date Type Department Care Team (Late st Contact Info) Description 06/23/2022 Refill [facility] [address] [place] [address] Rony Donato PA Social History [...] filedocumented in this encounter Care Teams Press Officer Relationship Specialty Start Date End Date Jessica Santamaria MD [address] [place], [place] PCP - General 04/04/19 documented as of this encounter
--- OUTSIDE RECORDS SUMMARY | 2024-09-18 10:09 | XMS_ITS | Encounter Summary ---
Author Organization [facility] [place], Address [address] [place] [address] Phone Care Team Providers Care Driving Teacher Name Role Phone Jessica Santamaria MD Primary Care Provider [phone] Encounter Details Date Type Department Care Team (Late st Contact Info) Description 10/05/2023 Documentation Only [facility] [place], [address] [place] [address] [place], [place] [address] [place] [address] Social History Tobacco Use Types [...] on filedocumented in this encounter Care Teams Driving Teacher Relationship Specialty Start Date End Date Jessica Santamaria MD [address] [place], [place] PCP - General 04/04/19 documented as of this encounter
--- OUTSIDE RECORDS SUMMARY | 2024-09-18 10:09 | XMS_ITS | Encounter Summary ---
Author Organization [facility] [place], Address [address] [place] [address] Phone Care Team Providers Care Labeling Machine Operator Name Role Phone Jessica Santamaria MD Primary Care Provider [phone] Reason for Visit * Reason Comments Med Refill Encounter Details Date Type Department Care Team (Late st Contact Info) Description 08/24/2022 Refill [facility] [address] [place] [address] Rony Donato PA Social History [...] on filedocumented in this encounter Care Teams Labeling Machine Operator Relationship Specialty Start Date End Date Jessica Santamaria MD [address] [place], [place] PCP - General 04/04/19 documented as of this encounter
--- OUTSIDE RECORDS SUMMARY | 2024-09-18 10:09 | XMS_ITS | Encounter Summary ---
Author Organization [facility] [place], Address [address] [place] [address] Phone Care Team Providers Care Applications Development Consultant Name Role Phone Jessica Santamaria MD Primary Care Provider [phone] Encounter Details Date Type Department Care Team (Late st Contact Info) Description 08/20/2023 Documentation Only [facility] [place], [address] [place] [place] [address] [place], [place] [address] [place] [address] Social History Tobacco Use Types [...] on filedocumented in this encounter Care Teams Applications Development Consultant Relationship Specialty Start Date End Date Jessica Santamaria MD [address] [place], [place] PCP - General 04/04/19 documented as of this encounter
--- OUTSIDE RECORDS SUMMARY | 2024-09-18 10:09 | XMS_ITS | Encounter Summary ---
Author Organization [facility] [place], Address [address] [place] [address] Phone Care Team Providers Care Laboratory Technician Name Role Phone Jessica Santamaria MD Primary Care Provider Encounter Details Date Type Department Care Team (Late st Contact Info) Description 09/28/2023 Documentation Only [facility] [place], [address] [place] [address] [place], [place] [address] [place] [address] Social History Tobacco Use Types [...] on filedocumented in this encounter Care Teams Laboratory Technician Relationship Specialty Start Date End Date Jessica Santamaria MD [address] [place], [place] PCP - General 04/04/19 documented as of this encounter
[2024-09-18 10:36] LABS: MANUAL DIFF FLAG NO
[2024-09-18 10:43] LABS: Appearance Urine Clear; Color Urine Yellow; Glucose Urine UA >=1000 mg/dL (Negative); Leukocyte Esterase Urine Negative (Negative); Nitrite Urine Negative (Negative); PH 5.5 (5.0-9.0); Specific Gravity - Urine >= 1.030 (1.005-1.025); UMIC TRIGGER UACC YES; Urine Blood Negative (Negative); Urine Ketones Trace mg/dL (Negative); Urine Protein Negative (Neg-Trace)
[2024-09-18 10:48] LABS: Bacteria Urine None Seen (None Seen); Hyaline Casts Urine 0-2 /LPF (0-2); RBC Urine 0-2 /HPF (0-2); Squamous Epithelial Cell Urine 0-2 /HPF (0-2); WBC Urine 0-5 /HPF (0-5)
[2024-09-18 11:01] LABS: Creatinine Urine 194.17 mg/dL
[2024-09-18 11:02] LABS: Microalbum/Creatinine Ratio Ur 12.3 ug/mg cr (<30)
[2024-09-18 11:06] LABS: Basophils Percent Auto 0.7 % (0-2); Eosinophils Absolute Auto 0.2 X10*3/uL (0.0-0.4); Eosinophils Percent Auto 4.2 % (0-4); Hematocrit 40.6 % (37.0-47.0); Hemoglobin 13.4 g/dl (12.0-16.0); Lymphocytes Absolute Auto 0.8 X10*3/uL (1.2-4.9); Lymphocytes Percent Auto 17.2 % (20-40); Mean Corpuscular Hemoglobin 27.9 pg (27.0-33.0); Mean Corpuscular Volume 84.4 fL (80.0-98.0); Mean Platelet Volume 11.2 fL (9.4-12.3); Monocytes Absolute Auto 0.4 X10*3/uL (0.1-1.2); Monocytes Percent Auto 8.2 % (2-11); Neutrophils Absolute Auto 3.2 x10*3/uL (2.0-8.3); Neutrophils Percent Auto 69.7 % (45-73); Platelet Count 160 X10*3/uL (160-400); Red Blood Count 4.81 X10*6/uL (4.20-5.50); White Blood Count 4.5 X10*3/uL (4.8-10.8)
[2024-09-18 11:36] LABS: Alanine Aminotransferase 20 U/L (0-31); Anion Gap 15 (12-20); Aspartate Amino Transferase 24 U/L (5-31); Blood Urea Nitrogen 20 mg/dL (9-16); Calcium 9.9 mg/dL (8.4-10.2); Carbon Dioxide 22 mmol/L (22-29); Chloride 110 mmol/L (96-108); Estimated Glomerular Filt Rate 44; Iron 58 mcg/dL (30-160); Magnesium 1.6 mg/dL (1.6-2.6); Percent Iron Saturation 25 % (15-50); Potassium 4.6 mmol/L (3.3-5.1); Sodium 142 mmol/L (135-145); Total Iron Binding Capacity 233 mcg/dL (228-428); Unsaturated Iron Binding 175 ug/dL
[2024-09-18 11:37] LABS: Parathyroid Hormone Intact 130.6 pg/mL (8.7-77.1)
[2024-09-18 11:49] LABS: Estimated Average Glucose 120 mg/dL; Hemoglobin A1c % 5.8 % (<6.0); Total Hemoglobin (HGBA1C) 3518.9202 umol/L
[2024-09-18 11:50] LABS: Ferritin 157 ng/mL (10-250)
[2024-09-19 16:18] LABS: Tacrolimus Prograf 6.3 mcg/L
[2024-09-21 09:44] LABS: Mycophenolic Acid 4.6 mcg/mL (1.0-3.5); Mycophenolic Acid Glucuronide 63.4 mcg/mL (35.0-100.0)
[2024-10-03 12:33] LABS: CMV DNA PCR Qn Source PLASMA; CMV DNA Qn PCR NOT DETECTED; CMV DNA Qn Real Time PCR NOT DETECTED
== END 2024-09-18 10:04 | disposition home or self-care (01) ==
LOC: HO.LAB 10:03
PROVIDERS: PCP Internal Medicine; Visit Provider Internal Medicine Nephrology
DX: N18.32 Chronic kidney disease, stage 3b (principal); Z94.0 Kidney transplant status; Z92.25 Personal history of immunosuppression therapy; E11.9 Type 2 diabetes mellitus without complications; D50.9 Iron deficiency anemia, unspecified; E83.42 Hypomagnesemia
CPT/HCPCS: 36415; 80051; 80180; 80197; 81001; 82043; 82310; 82550; 82565; 82570; 82728; 83036; 83540; 83735; 83970; 84450; 84460; 84520; 85025; 87497

== ENCOUNTER 2024-09-20 13:03 | Outpatient (REF) | payer OTHER, SELFPAY ==
--- NOTE | ~2024-09-20 | MM_ITS ---
EXAMINATION: DXA BONE DENSITY AXIAL HISTORY: Z78.0 - Asymptomatic menopausal state TECHNIQUE: [employer] Dual energy absorptiometry (DEXA) of the lumbar spine, total left hip, and femoral neck was performed. COMPARISON: There are no prior studies for comparison. FINDINGS: The bone mineral density of the lumbar spine is 1.080 with a T-score of -0.8, and a Z-score of 0.0. This is indicative of normal bone mineral density. The bone mineral density of the left total hip is 0.984 with a T-score of -0.2, and a Z-score of 0.5. This is indicative of normal bone mineral density. The bone mineral density of the left femoral neck is 0.890 with a T-score of -1.1, and a Z-score of -0.1. This is indicative of osteopenia. FRACTURE RISK: The FRAX index suggests a risk of major osteoporotic fracture of 7.3%, and of hip fracture 0.2%. MM/XR DEXA axial skeleton IMPRESSION: Based on bone mineral density, and according to World Health Organization (WHO) criteria, the diagnosis is consistent with osteopenia. All bone density values are in grams per centimeter squared (g/cm2). Statistically, 68% of repeat scans fall within 1 SD (+/- 0.010 g/cm2 for AP spine L1-L4) and 1 SD (+/- 0.012 g/cm2 for femur total) FRAX is a trademark of the [employer] [facility] Metabolic Bone Disease, a World Health Organization (WHO) Collaborating Center. Electronically signed by: Tereso Emmanuel MD 09/22/2024 07:45 AM EDT
--- OUTSIDE RECORDS SUMMARY | 2024-09-20 15:27 | XMS_ITS | Encounter Summary ---
Author Organization [facility] [place], Address [address] [place] [address] Phone Care Team Providers Care Renal Dialysis Rn Name Role Phone Jessica Santamaria MD Primary Care Provider [phone] Encounter Details Date Type Department Care Team (Late st Contact Info) Description 06/30/2024 Documentation Only [facility] [place], [address] [place] [address] [place], [place] [address] [place] [address] Social History Tobacco Use Types [...] on filedocumented in this encounter Care Teams Renal Dialysis Rn Relationship Specialty Start Date End Date Jessica Santamaria MD [address] [place], [place] PCP - General 04/04/19 documented as of this encounter
--- OUTSIDE RECORDS SUMMARY | 2024-09-20 15:27 | XMS_ITS | Encounter Summary ---
Author Organization [facility] [place], Address [address] [place] [address] Phone Care Team Providers Care Customs Consultant Name Role Phone Jessica Santamaria MD Primary Care Provider [phone] Encounter Details Date Type Department Care Team (Late st Contact Info) Description 06/30/2024 Documentation Only [facility] [place], [address] [place] [address] [place], [place] [address] [place] [address] Social History Tobacco Use Types [...] on filedocumented in this encounter Care Teams Customs Consultant Relationship Specialty Start Date End Date Jessica Santamaria MD [address] [place], [place] PCP - General 04/04/19 documented as of this encounter
--- OUTSIDE RECORDS SUMMARY | 2024-09-20 15:28 | XMS_ITS | Encounter Summary ---
Author Organization [facility] [place], Address [address] [place] [address] Phone Care Team Providers Care Marketing Content Manager Name Role Phone Jessica Santamaria MD Primary Care Provider [phone] Encounter Details Date Type Department Care Team (Late st Contact Info) Description 11/18/2023 Documentation Only [facility] [place], [address] [place] [address] [place], [place] [address] [place] [address] Social History Tobacco Use Types [...] on filedocumented in this encounter Care Teams Marketing Content Manager Relationship Specialty Start Date End Date Jessica Santamaria MD [address] [place], [place] PCP - General 04/04/19 documented as of this encounter
--- OUTSIDE RECORDS SUMMARY | 2024-09-20 15:28 | XMS_ITS | Encounter Summary ---
Author Organization [facility] [place], Address [address] [place] [address] Phone Care Team Providers Care Career Development Counselor Name Role Phone Jessica Santamaria MD Primary Care Provider [phone] Reason for Visit * Reason Comments Med Refill Encounter Details Date Type Department Care Team (Late st Contact Info) Description 06/23/2022 Refill [facility] [address] [place] [place] [address] Rony Donato PA Social History [...] on filedocumented in this encounter Care Teams Career Development Counselor Relationship Specialty Start Date End Date Jessica Santamaria MD [address] [place], [place] PCP - General 04/04/19 documented as of this encounter
--- OUTSIDE RECORDS SUMMARY | 2024-09-20 15:28 | XMS_ITS | Encounter Summary ---
Author Organization [facility] [place], Address [address] [place] [address] Phone Care Team Providers Care Editor Managing Director Name Role Phone Jessica Santamaria MD Primary Care Provider [phone] Encounter Details Date Type Department Care Team (Late st Contact Info) Description 09/20/2023 Documentation Only [facility] [place], [address] [place] [address] [place], [place] [address] [place] [address] Social History Tobacco Use Types [...] on filedocumented in this encounter Care Teams Editor Managing Director Relationship Specialty Start Date End Date Jessica Santamaria MD [address] [place], [place] PCP - General 04/04/19 documented as of this encounter
--- OUTSIDE RECORDS SUMMARY | 2024-09-20 15:28 | XMS_ITS | Encounter Summary ---
Author Organization [facility] [place], Address [address] [place] [address] Phone Care Team Providers Care Onshore Diver Name Role Phone Jessica Santamaria MD Primary Care Provider [phone] Encounter Details Date Type Department Care Team (Late st Contact Info) Description 09/15/2024 Telephone [facility] [place], [address] [place] [address] Karyn Ross [address] [place] [address] Social History Tobacco Use Types Packs/Day [...] tender and painful. Please return the call [phone] - thank you documented in this encounter Plan of Treatment Not on file documented as of this encounter Visit Diagnoses Not on filedocumented in this encounter Care Teams Onshore Diver Relationship Specialty Start Date End Date Jessica Santamaria MD [address] [place], [place] PCP - General 04/04/19 documented as of this encounter
--- OUTSIDE RECORDS SUMMARY | 2024-09-20 15:28 | XMS_ITS | Encounter Summary ---
Author Organization [facility] [place], Address [address] [place] [address] Phone Care Team Providers Care Tire And Lube Technician Name Role Phone Jessica Santamaria MD Primary Care Provider [phone] Reason for Visit * Reason Comments Med Refill Encounter Details Date Type Department Care Team (Late st Contact Info) Description 07/20/2023 Refill [facility] [address] [place] [address] Rony Donato PA Social History [...] on filedocumented in this encounter Care Teams Tire And Lube Technician Relationship Specialty Start Date End Date Jessica Santamaria MD [address] [place], [place] PCP - General 04/04/19 documented as of this encounter
--- OUTSIDE RECORDS SUMMARY | 2024-09-20 15:28 | XMS_ITS | Encounter Summary ---
Author Organization [facility] [place], Address [address] [place] [address] Phone Care Team Providers Care Activities Volunteer Name Role Phone Jessica Santamaria MD Primary Care Provider [phone] Reason for Visit * Reason Comments Med Refill Encounter Details Date Type Department Care Team (Late st Contact Info) Description 06/23/2021 Refill [facility] [address] [place] [address] Rony Donato PA Social History [...] on filedocumented in this encounter Care Teams Activities Volunteer Relationship Specialty Start Date End Date Jessica Santamaria MD [address] [place], [place] PCP - General 04/04/19 documented as of this encounter
--- OUTSIDE RECORDS SUMMARY | 2024-09-20 15:28 | XMS_ITS | Encounter Summary ---
Author Organization [facility] [place], Address [address] [place] [address] Phone Care Team Providers Care Director Specialty Name Role Phone Jessica Santamaria MD Primary Care Provider [phone] Reason for Visit * Reason Comments Med Refill Encounter Details Date Type Department Care Team (Late st Contact Info) Description 06/20/2021 Refill [facility] [address] [place] [address] Rony Donato PA Social History [...] on filedocumented in this encounter Care Teams Director Specialty Relationship Specialty Start Date End Date Jessica Santamaria MD [address] [place], [place] PCP - General 04/04/19 documented as of this encounter
--- OUTSIDE RECORDS SUMMARY | 2024-09-20 15:28 | XMS_ITS | Clinical Summary ---
Author Organization [facility] [place], Address [address] [place] [address] [place] [address] Phone Care Team Providers Care Rotating Equipment Specialist Name Role Phone Jessica Santamaria MD Primary Care Provider [phone] Allergies Active Allergy Reactions Criticality Noted Date [...] chew, or split. 30 tablet 11 09/21/2023 Active Jardiance 10 MG tablet Take by [...] Only [facility] [place] [address] [place] [address] Zoe Vásquez, RN Stage 3b chronic kidney disease (HCC) (Primary Dx); History of renal transplant; History of immunosuppressive therapy; Type 2 diabetes mellitus without complication (HCC); Secondary hyperparathyroidism (HCC); Hyperglycemia, not otherwise specified; Hypomagnesemia; Iron deficiency anemia, not otherwise specified 09/15/2024 Telephone [facility] [address] [place] [address] RossKaryn barrow 07/03/2024 4:15 PM EST Office Visit [facility] [address] [place] [address] Shavon Ng FNP-C History of renal transplant (Primary Dx); History of immunosuppressive therapy; Stage 3a chronic kidney disease (HCC) 06/30/2024 Documentation Only [facility] [address] [place] [address] Hiwot Smith MA 06/30/2024 Documentation Only [facility] [address] [place] [address] Hiwot Smith MA from Last 3 Months [...] AM EDT) Hemoglobin A1C 6.4(H) (4.0-5.6) % [facility] Comment: MONITORING: In known diabetic patients, hemoglobin A1c targets should be discussed with health care provider. DIAGNOSTIC USE: ??The [place] Diabetes Association (ADA) and the World Health [...] Supplement 1 Testing performed or reported by [facility], a Service of [facility], [address] [place] [address] Tate Pham MD, Presser [facility]# [id number] Blood (Blood, Venous) 11/13/2022 9:47 AM EDT 11/13/2022 9:48 AM EDT Rnoy [facility] BLOOD ORDERABLES Final Re sult [facility] from Last 3 Months or Most Recently Relevant to Health Maintenance [place] [address] Medicaid MICHELLE F[place] [id number] [address] [place] [id number] Care Teams Rotating Equipment Specialist Relationship Specialty Start Date End Date Jessica Santamaria MD [address] [place], [place] PCP - General 04/04/19
--- OUTSIDE RECORDS SUMMARY | 2024-09-20 15:28 | XMS_ITS | Encounter Summary ---
Author Organization [facility] [place], Address [address] [address] Phone Care Team Providers Care Waterproofer Helper Name Role Phone Jessica Santamaria MD Primary Care Provider [phone] Reason for Visit * Reason Comments Med Refill Encounter Details Date Type Department Care Team (Late st Contact Info) Description 04/12/2023 Refill [facility] [place], [address] [place] [address] Alvaro Stratton MD [address] [place] [address] [place] [address] Social History Tobacco Use Types Packs/Day Years [...] on filedocumented in this encounter Care Teams Waterproofer Helper Relationship Specialty Start Date End Date Jessica Santamaria MD [address] [place] [address] PCP - General 04/04/19 documented as of this encounter
--- OUTSIDE RECORDS SUMMARY | 2024-09-20 15:28 | XMS_ITS | Encounter Summary ---
Author Organization [facility] [place], Address [address] [address] Phone Care Team Providers Care Paint Maker Name Role Phone Jessica Santamaria MD Primary Care Provider [phone] Reason for Visit * Reason Comments Med Refill Encounter Details Date Type Department Care Team (Late st Contact Info) Description 07/13/2022 Refill [facility] [address] [place] [address] Alvaro Stratton MD [address] [place] [address] [place] [address] [place] [id number] Social History Tobacco Use Types Packs/Day Years [...] on filedocumented in this encounter Care Teams Paint Maker Relationship Specialty Start Date End Date Jessica Santamaria MD [address] [place] [address] PCP - General 04/04/19 documented as of this encounter
--- OUTSIDE RECORDS SUMMARY | 2024-09-20 15:28 | XMS_ITS | Encounter Summary ---
Author Organization [facility] [place], Address [address] [place] [address] Phone Care Team Providers Care Coding Manager Name Role Phone Jessica Santamaria MD Primary Care Provider [phone] Encounter Details Date Type Department Care Team (Late st Contact Info) Description 08/20/2023 Documentation Only [facility] [place], [address] [place] [address] [place], [place] [address] [place] [address] Social History Tobacco Use Types [...] on filedocumented in this encounter Care Teams Coding Manager Relationship Specialty Start Date End Date Jessica Santamaria MD [address] [place], [place] PCP - General 04/04/19 documented as of this encounter
--- OUTSIDE RECORDS SUMMARY | 2024-09-20 15:28 | XMS_ITS | Encounter Summary ---
Author Organization [facility] [place], Address [address] [place] [address] Phone Care Team Providers Care Esthetics Instructor Name Role Phone Jessica Santamaria MD Primary Care Provider [phone] Encounter Details Date Type Department Care Team (Late st Contact Info) Description 10/05/2023 Documentation Only [facility] [place], [address] [place] [address] [place], [place] [address] [place] [address] Social History Tobacco Use Types [...] on filedocumented in this encounter Care Teams Esthetics Instructor Relationship Specialty Start Date End Date Jessica Santamaria MD [address] [place], [place] PCP - General 04/04/19 documented as of this encounter
--- OUTSIDE RECORDS SUMMARY | 2024-09-20 15:28 | XMS_ITS | Encounter Summary ---
Author Organization [facility] [place], Address [address] [place] [address] Phone Care Team Providers Care Floor Finisher Helper Name Role Phone Jessica Santamaria MD Primary Care Provider Encounter Details Date Type Department Care Team (Late st Contact Info) Description 09/28/2023 Documentation Only [facility] [place], [address] [place] [address] [place], [place] [address] [place] [address] Social History Tobacco Use Types [...] on filedocumented in this encounter Care Teams Floor Finisher Helper Relationship Specialty Start Date End Date Jessica Santamaria MD [address] [place], [place] PCP - General 04/04/19 documented as of this encounter
--- OUTSIDE RECORDS SUMMARY | 2024-09-20 15:28 | XMS_ITS | Encounter Summary ---
Author Organization [facility] [place], Address [address] [place] [address] Phone Care Team Providers Care Supervisor Toy Parts Former Name Role Phone Jessica Santamaria MD Primary Care Provider [phone] Encounter Details Date Type Department Care Team (Late st Contact Info) Description 02/16/2024 Documentation Only [facility] [place], [address] [place] [address] [place], [place] [address] [place] [address] Social History [...] filedocumented in this encounter Care Teams Supervisor Toy Parts Former Relationship Specialty Start Date End Date Jessica Santamaria MD [address] [place], [place] PCP - General 04/04/19 documented as of this encounter
--- OUTSIDE RECORDS SUMMARY | 2024-09-20 15:28 | XMS_ITS | Encounter Summary ---
Author Organization [facility] [place], Address [address] [place] [address] Phone Care Team Providers Care Rotary Driller Name Role Phone Jessica Santamaria MD Primary Care Provider [phone] Reason for Visit * Reason Comments Med Refill Encounter Details Date Type Department Care Team (Late st Contact Info) Description 06/11/2021 Refill [facility] [address] [place] [address] Rony Donato PA Social History [...] on filedocumented in this encounter Care Teams Rotary Driller Relationship Specialty Start Date End Date Jessica Santamaria MD [address] [place], [place] PCP - General 04/04/19 documented as of this encounter
--- OUTSIDE RECORDS SUMMARY | 2024-09-20 15:28 | XMS_ITS | Encounter Summary ---
Author Organization [facility] [place], Address [address] [place] [address] Phone Care Team Providers Care Chicken Buyer Name Role Phone Jessica Santamaria MD Primary Care Provider [phone] Reason for Visit * Reason Comments Med Refill Encounter Details Date Type Department Care Team (Late st Contact Info) Description 04/16/2022 Refill [facility] [address] [place] [address] Rony Donato PA Social History [...] on filedocumented in this encounter Care Teams Chicken Buyer Relationship Specialty Start Date End Date Jessica Santamaria MD [address] [place], [place] PCP - General 04/04/19 documented as of this encounter
--- OUTSIDE RECORDS SUMMARY | 2024-09-20 15:28 | XMS_ITS | Encounter Summary ---
Author Organization [facility] [place], Address [address] [place] [address] Phone Care Team Providers Care Tester Semiconductor Packages Name Role Phone Jessica Santamaria MD Primary Care Provider [phone] Reason for Visit * Reason Comments Med Refill Encounter Details Date Type Department Care Team (Late st Contact Info) Description 08/24/2022 Refill [facility] [address] [place] [address] Rony Donato PA Social History [...] on filedocumented in this encounter Care Teams Tester Semiconductor Packages Relationship Specialty Start Date End Date Jessica Santamaria MD [address] [place], [place] PCP - General 04/04/19 documented as of this encounter
--- OUTSIDE RECORDS SUMMARY | 2024-09-20 15:28 | XMS_ITS | Encounter Summary ---
Author Organization [facility] [place], Address [address] [place] [address] Phone Care Team Providers Care Library Technician Name Role Phone Jessica Santamaria MD Primary Care Provider [phone] Encounter Details Date Type Department Care Team (Late st Contact Info) Description 04/28/2024 Documentation Only [facility] [place], [address] [place] [address] [place], [place] [address] [place] [address] Social History Tobacco Use Types [...] on filedocumented in this encounter Care Teams Library Technician Relationship Specialty Start Date End Date Jessica Santamaria MD [address] [place], [place] PCP - General 04/04/19 documented as of this encounter
--- OUTSIDE RECORDS SUMMARY | 2024-09-20 15:28 | XMS_ITS | Encounter Summary ---
Author Organization [facility] [place], Address [address] [place] [address] Phone Care Team Providers Care Labview Programmer Name Role Phone Jessica Santamaria MD Primary Care Provider [phone] Encounter Details Date Type Department Care Team (Late st Contact Info) Description 09/20/2023 Documentation Only [facility] [place], [address] [place] [address] [place], [place] [address] [place] [address] Social History Tobacco Use Types [...] on filedocumented in this encounter Care Teams Labview Programmer Relationship Specialty Start Date End Date Jessica Santamaria MD [address] [place], [place] PCP - General 04/04/19 documented as of this encounter
--- OUTSIDE RECORDS SUMMARY | 2024-09-20 15:28 | XMS_ITS | Encounter Summary ---
Author Organization [facility], Address [address] [place] [address] Phone Care Team Providers Care Plc Programmer Name Role Phone Jessica Santamaria MD Primary Care Provider [phone] Encounter Details Date Type Department Care Team (Latest Contact Info) Description 09/15/2024 Orders Only [facility] [address] [place] [address] Zoe Vásquez, ANABELL [address] [place] [address] [place] [address] Stage 3b chronic kidney disease [...] specified documented in this encounter Care Teams Plc Programmer Relationship Specialty Start Date End Date Jessica Santamaria MD [address] [place], [place] PCP - General 04/04/19 documented as of this encounter
== END 2024-09-20 13:04 | disposition home or self-care (01) ==
LOC: HO.MAMMO 13:03
PROVIDERS: PCP Internal Medicine; Visit Provider Internal Medicine
DX: Z12.31 Encounter for screening mammogram for malignant neoplasm of breast (principal); Z13.820 Encounter for screening for osteoporosis; Z78.0 Asymptomatic menopausal state
CPT/HCPCS: 77063; 77067; 77080

== ENCOUNTER → 2024-09-20 13:30 | Outpatient (BNV) | payer OTHER, SELFPAY | PROVIDERS: PCP Internal Medicine; Visit Provider Radiology Diagnostic Radiology | DX: E28.39 Other primary ovarian failure (principal) | CPT/HCPCS: 77080 ==

== ENCOUNTER 2024-09-27 14:13 | Outpatient (AMB) | payer OTHER, SELFPAY ==
--- NOTE | 2024-09-27 14:15 | A.OFFPC_ITS ---
Vital Signs 09/27/24 14:16 Height 5 ft Weight 156 lb BMI 30.5 BP 118/72 Blood Pressure Location Lt brachial Position Sitting Intake Visit Reasons: dm Intake Note: Patient here for a follow up DM It Compliance Manager Required: No Accompanied by: Self / Same As Patient Allergies amlodipine Adverse Reaction (Intermediate, Verified 09/27/24 14:31) leg edema morphine Adverse Reaction (Mild, Verified 09/27/24 14:31) Rash Medication List - Last Reconciled 09/27/24 by Jessica Dietz MD albuterol sulfate 90 mcg/actuation (Ventolin HFA) inhalation alcohol swabs (Alcohol Prep Pads) 1 pad topical BID atorvastatin 40 mg PO BEDTIME 90 days blood sugar diagnostic (FreeStyle Lite Strips) Use 1 test strip once a day blood-glucose meter (FreeStyle Lite Meter kit) As directed calcitriol mcg PO dapagliflozin propanediol (Farxiga) 10 mg PO DAILY fluticasone propionate 50 mcg/actuation 1 spray intranasal BID hydrocortisone 2.5% (Procto-Med HC) 1 appl OR BID-QID PRN labetalol 200 mg PO BID 90 days lancets (FreeStyle Lancets) Use 1 lancet once a day linagliptin (Tradjenta) 5 mg PO DAILY 90 days lubiprostone (Amitiza) 24 mcg PO DAILY mycophenolate sodium 540 mg PO BID naloxegol (Movantik) 25 mg PO QAM nifedipine ER 60 mg PO DAILY 90 days oxycodone 5 mg PO Q8H PRN 28 days tacrolimus 7 mg PO Tobacco use date assessed: 08/24/24 Dental Screening Dental Screen Date: 08/24/24 HPI HPI Comments History of Present Illness Details The patient is a 59-year-old female presenting with concerns for managing her chronic conditions, including diabetes, hypertension, and osteopenia. She has a history of renal transplant from 2018 and is being followed up for Chronic Kidney Disease Stage 3, with improved renal function noted recently. Her bone density revealed osteopenia, for which she is receiving calcium and vitamin D supplementation. Her LDL goal should be less than 70. Hypertension well controlled with medications. Diabetes management is ongoing, with a target of maintaining stable blood glucose levels; her recent tests have shown reasonable control. The patient's blood pressure is managed with medications. Hyperparathyroidism, secondary to kidney disease, is present due to elevated parathyroid hormone levels. The patient reports weight fluctuations, from 159 to 156 pounds recently. She has experienced an episode of diarrhea of unknown etiology, which resolved without medical intervention. Depression symptoms are present but not currently addressed with therapy or intervention. Although she reports leg cramps, these are potentially medication-related and are not accompanied by vascular issues based on imaging. Her mammogram was benign, and recent labs were mostly within normal range. [facility] Medical History (Updated 09/27/24 @ 14:47 by Jessica Dietz MD) Malnutrition Diabetes mellitus Right ankle pain Left ankle pain Fatigue Hair loss Back pain Pancreatic lesion Pneumonia due to COVID-19 virus Essential hypertension Surgical History History of esophagogastroduodenoscopy (EGD) Hx of colonoscopy Kidney transplant recipient AV fistula Kidney transplant status History of tubal ligation History of foot surgery History of lipoma History of benign breast tumor Family History Father CVD (cardiovascular disease) Prostate cancer Mother No problems noted. Social History Household Members: Children Housing: Apartment Alcohol intake: never Patient Tobacco Use Status: Former Tobacco user Tobacco use type: Cigarette e-Cigarette/Vaping Use: Never Used Second Hand Smoke Exposure: No service: No Current occupational status: unemployed Cognitive needs: No Hearing needs: No Vision needs: Yes Questionnaire PHQ-9 Over the last 2 weeks, how often have you been bothered by any of the following problems? 1. Little interest or pleasure in doing things: several days 2. Feeling down, depressed, or hopeless: several days 3. Trouble falling or staying asleep, or sleeping too much: nearly every day 4. Feeling tired or having little energy: nearly every day 5. Poor appetite or overeating: more than half the days 6. Feeling bad about yourself - or that you are a failure or have let yourself or your family down: not at all 7. Trouble concentrating on things, such as reading the newspaper or watching television: more than half the days 8. Moving or speaking so slowly that other people could have noticed. Or the opposite - being so fidgety or restless that you have been moving around a lot more than usual: several days 9. Thoughts that you would be better off or of hurting yourself in some way: not at all Total score: 13 Depression Screening Interpretation: Positive Depression Screening Follow-up: Existing condition, Follow-up Visit Requested and Declines treatment Depression Screening Done: Yes 09993 - PHQ-9 Billing: Yes Source: Developed by Drs. Tereso Jones, Marilyn Cedeno, Homer zavala nd colleagues, with an educational catrina from [employer]. Thrive Questionnaire Date Thrive assessed: 08/24/24 I am a: Patient What is your living situation today?: I have a steady place to live Within the past 12 months, did the food you bought not last and you didn't have the money to get more?: Sometimes True Within the past 12 months, did you worry whether your food would run out before you got money to buy more?: Often true Do you have trouble paying for medicines?: No Do you have trouble getting transportation to medical appointments?: No Do you have trouble paying your heating and electricity bill?: Yes Do you have trouble taking care of your child, family member or friend?: I choose not to answer this question Do you have trouble with day-to-day activities such as bathing, preparing meals, shopping, managing finances, etc.?: No Are you currently unemployed and looking for a job?: No Are you interested in more education?: No Please select the resources that you would like help with: Food Currently or been in a relationship where the following occur: No concerns reported THRIVE Score: 3 AUDIT C Alcohol Use Questionnaire (AUDIT-C) 1. How often do you have a drink containing alcohol?: Never Total Score: 0 Score Reviewed/Action Taken: No JONNIE-7 AMB Questionnaire JONNIE-7 Date JONNIE - 7 assessed: 08/24/24 Feeling nervous, anxious, or on edge: 1 = Several days Not being able to stop or control worryin = Several days Worrying too much about different things: 2 = More than half the days Trouble relaxin = Not at all Being so restless that it is hard to sit still: 1 = Several days Becoming easily annoyed or irritable: 1 = Several days Feeling afraid as if something awful might happen: 1 = Several days Total JONNIE-7 score (0-4 normal; 5-9 mild; 10-14 moderate; 15-21 severe): 7 Source: Developed by Drs. Tereso Jones, Marilyn Cedeno, Homer Huston and colleagues, with an educational catrina from [employer]. JONNIE-7 Assessment Billing JONNIE-7 Assessment Tool: JONNIE-7 Assessment 42795 Review of Systems Const All systems reviewed & are unremarkable except as noted in HPI and below Card Denies chest pain at rest, Denies chest pain with activity, Denies edema, Denies irregular heart rhythm, Denies claudication, Denies dyspnea, Denies dyspnea on exertion, Denies orthopnea, Denies paroxysmal nocturnal dyspnea and Denies slow heart rate Resp Denies cough, Denies dyspnea and Denies dyspnea on exertion GI Denies abdominal pain, Denies change in bowel habits, Denies excessive flatus, Denies nausea and Denies vomiting Physical exam (Primary Care) Vital Signs: Last Vital Signs BP 118/72 09/27/24 14:16 BMI result Body Mass Index 30.5 Tobacco/Smoking Status: Tobacco use Status Tobacco use date assessed 08/24/24 09/27/24 14:21 Patient Tobacco Use Status Former Tobacco user 09/27/24 14:21 Tobacco use type Cigarette 09/27/24 14:21 e-Cigarette/Vaping Use Never Used 09/27/24 14:21 PHQ-9: PHQ-9 Score PHQ-9: Total score 13 09/27/24 15:13 Depression Screening Interpretation: Positive Depression Screening Follow-up: Existing condition, Follow-up Visit Requested and Declines treatment Thrive Assessment: Date of Thrive Assessment Date Thrive assessed 08/24/24 09/27/24 14:21 Currently or been in a relationship where the following occur: No concerns reported Resp Effort & Inspection: normal respiratory effort Auscultation: clear to auscultation bilaterally Cardio Jugular venous distension: no JVD Rate: regular rate Rhythm: regular rhythm Heart sounds: S1 normal heart sound present and S2 normal heart sound present Extrem General: Yes full ROM Coding Level of Care Code Est Pt Level 4 (36489) Complex EM visit Add On G2211 Diagnoses Stage 3b chronic kidney disease N18.32 Chronic kidney disease stage 3 subtype: stage 3b (GFR 30-44) Secondary hyperparathyroidism N25.81 Hyperlipidemia LDL goal <70 E78.5 Type 2 diabetes mellitus with hyperglycemia, without long-term current use of insulin E11.65 Diabetes mellitus type: type 2 Diabetes mellitus mcfp insulin use: without continuous churn buttermaker use Diabetes mellitus complication status: with hyperglycemia Essential hypertension I10 Additional Codes JONNIE-7 Assessment Billing - JONNIE-7 Assessment Tool: JONNIE-7 Assessment 12139 ([id number]) PHQ-9 - 59234 - PHQ-9 Billing: Yes ([id number]) Time Spent (min) 24 Assessment & Plan Assessment & Plan (1) CKD (chronic kidney disease) stage 3, GFR 30-59 ml/min: Code(s): N18.30 - Chronic kidney disease, stage 3 unspecified Category: Medical Qualifiers: Chronic kidney disease stage 3 subtype: stage 3b (GFR 30-44) Qualified Code(s): N18.32 - Chronic kidney disease, stage 3b (2) Secondary hyperparathyroidism: Code(s): N25.81 - Secondary hyperparathyroidism of renal origin Category: Medical (3) Hyperlipidemia LDL goal <70: Code(s): E78.5 - Hyperlipidemia, unspecified Category: Medical (4) Diabetes mellitus: Code(s): E11.9 - Type 2 diabetes mellitus without complications Category: Medical Qualifiers: Diabetes mellitus type: type 2 Diabetes mellitus mcfp insulin use: without mcfp use Diabetes mellitus complication status: with hyperglycemia Qualified Code(s): E11.65 - Type 2 diabetes mellitus with hyperglycemia (5) Essential hypertension: Code(s): I10 - Essential (primary) hypertension Category: Medical Plan Management of diabetes will focus on maintaining a stable glucose range, currently controlled with her medication. Hypertension treatment appears effective; continued adherence to her prescribed regimen is essential. Chronic Kidney Disease should be monitored by nephrology to adjust medication as needed. Elevated parathyroid hormone levels will be addressed by nephrology, keeping in mind her renal history. Depression is acknowledged; however, no intervention was accepted by the patient at this time. A four-month lab re-evaluation will assess chronic condition management. Normal liver enzymes suggest no immediate action, but future monitoring will continue.: Patient was informed and verbally consented to the use of an ambient scribe for clinic note documentation during this visit. During our discussion, I informed her about the current management strategies for her osteopenia, diabetes, hypertension, and chronic kidney disease. We discussed the importance of maintaining calcium and vitamin D supplementation a nd regular monitoring of her bone health. For diabetes, I provided reassurance regarding her A1c levels and the effectiveness of her current regimen. I emphasized continued adherence to her antihypertensive medications. We spoke about the elevated parathyroid hormone as secondary to her kidney condition, and the role nephrology will play in monitoring this. Depression was discussed, and although recommendations for counseling or therapy were mentioned, she chose not to pursue this at present. It was agreed that lab assessments would be repeated in four months to evaluate the control of her conditions further. She seemed aware of her health status and understood the recommendations presented during the visit. Orders: Orders Parathyroid Hormone Intact 4 Months N25.81 - Secondary hyperparathyroidism of renal origin Vitamin D 25-OH Total 4 Months E55.9 - Vitamin D deficiency, unspecified, N25.81 - Secondary hyperparathyroidism of renal origin Phosphorus 4 Months N25.81 - Secondary hyperparathyroidism of renal origin Calcium, Ionized 4 Months N25.81 - Secondary hyperparathyroidism of renal origin Calcium, 24 Hr Ur 4 Months N25.81 - Secondary hyperparathyroidism of renal origin Lipid Panel 4 Months E78.5 - Hyperlipidemia, unspecified Microalbumin, Random (w Creat) 4 Months R80.9 - Proteinuria, unspecified Comprehensive [place]. Panel Fast 4 Months N18.32 - Chronic kidney disease, stage 3b Referrals Nephrology Referral N18.32 - Chronic kidney disease, stage 3b, N25.81 - Secondary hyperparathyroidism of renal origin Patient Instructions: - Continue taking calcium and vitamin D supplements daily. - Monitor blood sugar levels regularly and aim to keep levels below 120 mg/dL. - Take blood pressure medication as prescribed. - Follow up with nephrology as scheduled for kidney and parathyroid management. - Return in four months for lab re-evaluation. - Consider psychological support if depression symptoms persist or worsen. - Speak with your doctor if you experience any new symptoms or changes in your health.
[2024-09-27 14:16] VITALS: BP 118/72; BMI 30.5
--- OUTSIDE RECORDS SUMMARY | 2024-09-27 15:35 | XMS_ITS | Encounter Summary ---
Author Organization [facility], Address [address] [place] [address] Phone Care Team Providers Care Banquet Cook Name Role Phone Jessica Santamaria MD Primary Care Provider [phone] Reason for Visit * Reason Comments Med Refill Encounter Details Date Type Department Care Team (Late st Contact Info) Description 07/20/2023 Refill [facility] [address] [place] [address] Rony Donato PA Social History [...] on filedocumented in this encounter Care Teams Banquet Cook Relationship Specialty Start Date End Date Jessica Santamaria MD [address] [place], [place] PCP - General 04/04/19 documented as of this encounter
--- OUTSIDE RECORDS SUMMARY | 2024-09-27 15:35 | XMS_ITS | Encounter Summary ---
Author Organization [facility], Address [address] [place] [address] Phone Care Team Providers Care Business Information Analyst Name Role Phone Jessica Santamaria MD Primary Care Provider [phone] Encounter Details Date Type Department Care Team (Late st Contact Info) Description 09/20/2023 Documentation Only [facility], [address] [place] [address] [place], [place] [address] [place] [address] Social History Tobacco Use Types [...] on filedocumented in this encounter Care Teams Business Information Analyst Relationship Specialty Start Date End Date Jessica Santamaria MD [address] [place], [place] PCP - General 04/04/19 documented as of this encounter
--- OUTSIDE RECORDS SUMMARY | 2024-09-27 15:35 | XMS_ITS | Encounter Summary ---
Author Organization [facility], Address [address] [address] Phone Care Team Providers Care Rotor Coil Taper Name Role Phone Jessica Santamaria MD Primary Care Provider [phone] Reason for Visit * Reason Comments Med Refill Encounter Details Date Type Department Care Team (Late st Contact Info) Description 07/13/2022 Refill [facility] [address] [place] [address] Alvaro Stratton MD [address] [place] [address] [place] [address] [place] [id number] Social History Tobacco Use Types Packs/Day Years [...] on filedocumented in this encounter Care Teams Rotor Coil Taper Relationship Specialty Start Date End Date Jessica Santamaria MD [address] [place] [address] PCP - General 04/04/19 documented as of this encounter
--- OUTSIDE RECORDS SUMMARY | 2024-09-27 15:35 | XMS_ITS | Encounter Summary ---
Author Organization [facility], Address [address] [place] [address] Phone Care Team Providers Care Pay Station Collector Name Role Phone Jessica Santamaria MD Primary Care Provider [phone] Encounter Details Date Type Department Care Team (Late st Contact Info) Description 11/18/2023 Documentation Only [facility], [address] [place] [place] [address] [place], [place] [address] [place] [address] Social History Tobacco Use Types [...] on filedocumented in this encounter Care Teams Pay Station Collector Relationship Specialty Start Date End Date Jessica Santamaria MD [address] [place], [place] PCP - General 04/04/19 documented as of this encounter
--- OUTSIDE RECORDS SUMMARY | 2024-09-27 15:35 | XMS_ITS | Encounter Summary ---
Author Organization [facility], Address [address] [place] [address] Phone Care Team Providers Care Operations Welder Name Role Phone Jesisca Santamaria MD Primary Care Provider [phone] Reason for Visit * Reason Comments Med Refill Encounter Details Date Type Department Care Team (Late st Contact Info) Description 06/20/2021 Refill [facility] [address] [place] [address] Rony Donato PA Social [...] on filedocumented in this encounter Care Teams Operations Welder Relationship Specialty Start Date End Date Jessica Santamaria MD [address] [place], [place] PCP - General 04/04/19 documented as of this encounter
--- OUTSIDE RECORDS SUMMARY | 2024-09-27 15:35 | XMS_ITS | Encounter Summary ---
Author Organization [facility], Address [address] [place] [address] Phone Care Team Providers Care Medical Management Trainer Name Role Phone Jessica Santamaria MD Primary Care Provider [phone] Reason for Visit * Reason Comments Med Refill Encounter Details Date Type Department Care Team (Late st Contact Info) Description 08/24/2022 Refill [facility] [address] [place] [address] Rony Donato PA Social History [...] on filedocumented in this encounter Care Teams Medical Management Trainer Relationship Specialty Start Date End Date Jessica Santamaria MD [address] [place] [employer], [place] PCP - General 04/04/19 documented as of this encounter
--- OUTSIDE RECORDS SUMMARY | 2024-09-27 15:35 | XMS_ITS | Encounter Summary ---
Author Organization [facility] [place], Address [address] [place] [address] Phone Care Team Providers Care Clinical Staff Pharmacist Name Role Phone Jessica Santamaria MD Primary Care Provider [phone] Encounter Details Date Type Department Care Team (Late st Contact Info) Description 09/18/2024 Documentation Only [facility], [address] [place] [address] [place], [place] [address] [place] [address] Social History Tobacco Use Types [...] filedocumented in this encounter Care Teams Clinical Staff Pharmacist Relationship Specialty Start Date End Date Jessica Santamaria MD [address] [place], [place] PCP - General 04/04/19 documented as of this encounter
--- OUTSIDE RECORDS SUMMARY | 2024-09-27 15:35 | XMS_ITS | Encounter Summary ---
Author Organization [facility], Address [address] [place] [address] Phone Care Team Providers Care Distance Learning Technician Name Role Phone Jessica Santamaria MD Primary Care Provider [phone] Encounter Details Date Type Department Care Team (Late st Contact Info) Description 06/30/2024 Documentation Only [facility], [address] [place] [address] [place], [place] [address] [place] [address] Social History Tobacco Use Types [...] on filedocumented in this encounter Care Teams Distance Learning Technician Relationship Specialty Start Date End Date Jessica Santamaria MD [address] [place], [place] PCP - General 04/04/19 documented as of this encounter
--- OUTSIDE RECORDS SUMMARY | 2024-09-27 15:35 | XMS_ITS | Encounter Summary ---
Author Organization [facility] [place] [facility], Address [address] [place] [address] Phone Care Team Providers Care Human Resources Clerk Name Role Phone Jessica Santamaria MD Primary Care Provider [phone] Reason for Visit * Reason Comments Med Refill Encounter Details Date Type Department Care Team (Late st Contact Info) Description 06/11/2021 Refill [facility] [address] [place] [address] Rony Donato PA Social History [...] on filedocumented in this encounter Care Teams Human Resources Clerk Relationship Specialty Start Date End Date Jessica Santamaria MD [address] [place], [place] PCP - General 04/04/19 documented as of this encounter
--- OUTSIDE RECORDS SUMMARY | 2024-09-27 15:35 | XMS_ITS | Encounter Summary ---
Author Organization [facility] [place], Address [address] [place] [address] Phone Care Team Providers Care Ip Network Architect Name Role Phone Jessica Santamaria MD Primary Care Provider [phone] Encounter Details Date Type Department Care Team (Late st Contact Info) Description 08/20/2023 Documentation Only [facility], [address] [place] [address] [place], [place] [address] [place] [address] Social History Tobacco Use Types [...] on filedocumented in this encounter Care Teams Ip Network Architect Relationship Specialty Start Date End Date Jessica Santamaria MD [address] [place], [place] PCP - General 04/04/19 documented as of this encounter
--- OUTSIDE RECORDS SUMMARY | 2024-09-27 15:35 | XMS_ITS | Clinical Summary ---
Author Organization [facility] [place], Address [address] [place] [address] [place] [address] Phone Care Team Providers Care Safety Risk Lead Name Role Phone Jessica Santamaria MD Primary Care Provider [phone] Allergies Active Allergy Reactions Criticality Noted Date [...] Encounters Date Type Department Care Team Description 09/18/2024 Documentation Only [facility], [address] [place] [address] Hiwot Smith MA 09/15/2024 Orders Only [facility] [address] [place] [address] Zoe Vásquez RN Stage 3b chronic kidney disease (HCC) (Primary Dx); History of renal transplant; History of immunosuppressive therapy; Type 2 diabetes mellitus without complication (HCC); Secondary hyperparathyroidism (HCC); Hyperglycemia, not otherwise specified; Hypomagnesemia; Iron deficiency anemia, not otherwise specified 09/15/2024 Telephone [facility] [address] [place] [place] [address] Karyn Ross 07/03/2024 4:15 PM EST Office Visit [facility] [address] [place] [address] Shavon Ng FNP-C History of renal transplant (Primary Dx); History of immunosuppressive therapy; Stage 3a chronic kidney disease (HCC) 06/30/2024 Documentation Only [facility] [address] [place] [address] Hiwot Smith [place] 06/30/2024 Documentation Only [facility] [address] [place] [address] Hiwot Smith MA from Last 3 Months [...] AM EDT) Hemoglobin A1C 6.4(H) (4.0-5.6) % [facility] Comment: MONITORING: In known diabetic patients, hemoglobin A1c targets should be discussed with health care provider. DIAGNOSTIC USE: ??The [place] Diabetes Association (ADA) and the World Health [...] Supplement 1 Testing performed or reported by [facility], a Service of [facility], [address] [place] [address] Tate Pham MD, Network Support Specialist [facility]# [id number] Blood (Blood, Venous) 11/13/2022 9:47 AM EDT 11/13/2022 9:48 AM EDT us Rony [facility] BLOOD ORDERABLES Final Re sult [facility] from Last 3 Months or Most Recently Relevant to Health Maintenance [place] [address] Medicaid Care Teams Safety Risk Lead Relationship Specialty Start Date End Date Jessica Santamaria MD [address] [place], [place] PCP - General 04/04/19
--- OUTSIDE RECORDS SUMMARY | 2024-09-27 15:35 | XMS_ITS | Encounter Summary ---
Author Organization [facility], Address [address] [place] [address] Phone Care Team Providers Care Gravity Meter Observer Name Role Phone Jessica Santamaria MD Primary Care Provider Reason for Visit * Reason Comments Med Refill Encounter Details Date Type Department Care Team (Late st Contact Info) Description 06/23/2022 Refill [facility] [address] [place] [address] Rony Donato PA Social History [...] on filedocumented in this encounter Care Teams Gravity Meter Observer Relationship Specialty Start Date End Date Jessica Santamaria MD [address] [place], [place] PCP - General 04/04/19 documented as of this encounter
--- OUTSIDE RECORDS SUMMARY | 2024-09-27 15:35 | XMS_ITS | Encounter Summary ---
Author Organization [facility], Address [address] [place] [address] Phone Care Team Providers Care Bale Sewer Name Role Phone Jessica Santamaria MD Primary Care Provider [phone] Encounter Details Date Type Department Care Team (Late st Contact Info) Description 10/05/2023 Documentation Only [facility] [place], [address] [place] [place] [address] [place], [place] [address] [place] [address] Social History Tobacco Use Types [...] on filedocumented in this encounter Care Teams Bale Sewer Relationship Specialty Start Date End Date Jessica Santamaria MD [address] [place], [place] PCP - General 04/04/19 documented as of this encounter
--- OUTSIDE RECORDS SUMMARY | 2024-09-27 15:35 | XMS_ITS | Encounter Summary ---
Author Organization [facility] [place], Address [address] [place] [address] Phone Care Team Providers Care Bicycle Courier Name Role Phone Jessica Santamaria MD Primary Care Provider Encounter Details Date Type Department Care Team (Late st Contact Info) Description 04/28/2024 Documentation Only [facility] [place], [address] [place] [place] [address] [place], [place] [address] [place] [address] Social History Tobacco Use Types [...] on filedocumented in this encounter Care Teams Bicycle Courier Relationship Specialty Start Date End Date Jessica Santamaria MD [address] [place], [place] PCP - General 04/04/19 documented as of this encounter
--- OUTSIDE RECORDS SUMMARY | 2024-09-27 15:35 | XMS_ITS | Encounter Summary ---
Author Organization [facility], Address [address] [address] Phone Care Team Providers Care Filter Changer Name Role Phone Jessica Santamaria MD Primary Care Provider [phone] Reason for Visit * Reason Comments Med Refill Encounter Details Date Type Department Care Team (Late st Contact Info) Description 04/12/2023 Refill [facility] [place], [address] [address] Alvaro Stratton MD [address] [place] [address] [place] [address] Social History Tobacco Use Types Packs/Day Years [...] on filedocumented in this encounter Care Teams Filter Changer Relationship Specialty Start Date End Date Jessica Santamaria MD [address] [place] [address] PCP - General 04/04/19 documented as of this encounter
--- OUTSIDE RECORDS SUMMARY | 2024-09-27 15:35 | XMS_ITS | Encounter Summary ---
Author Organization [facility] [place], Address [address] [place] [address] Phone Care Team Providers Care Body Component Engineer Name Role Phone Jessica Santamaria MD Primary Care Provider Reason for Visit * Reason Comments Med Refill Encounter Details Date Type Department Care Team (Late st Contact Info) Description 04/16/2022 Refill [facility] [address] [place] [address] Rony Donato PA Social History [...] on filedocumented in this encounter Care Teams Body Component Engineer Relationship Specialty Start Date End Date Jessica Santamaria MD [address] [place], [place] PCP - General 04/04/19 documented as of this encounter
--- OUTSIDE RECORDS SUMMARY | 2024-09-27 15:35 | XMS_ITS | Encounter Summary ---
Author Organization [facility] [place], Address [address] [place] [address] Phone Care Team Providers Care Quality Manager Name Role Phone Jessica Santamaria MD Primary Care Provider [phone] Reason for Visit * Reason Comments Med Refill Encounter Details Date Type Department Care Team (Late st Contact Info) Description 06/23/2021 Refill [facility] [address] [place] [address] Rony Donato PA Social History [...] on filedocumented in this encounter Care Teams Quality Manager Relationship Specialty Start Date End Date Jessica Santamaria MD [address] [place], [place] PCP - General 04/04/19 documented as of this encounter
--- OUTSIDE RECORDS SUMMARY | 2024-09-27 15:35 | XMS_ITS | Encounter Summary ---
Author Organization [facility] [place], Address [address] [place] [address] Phone Care Team Providers Care Business Systems Consultant Name Role Phone Jessica Santamaria MD Primary Care Provider [phone] Encounter Details Date Type Department Care Team (Late st Contact Info) Description 06/30/2024 Documentation Only [facility] [place], [address] [place] [address] [place], [place] [address] [place] [address] Social History Tobacco Use Types [...] filedocumented in this encounter Care Teams Business Systems Consultant Relationship Specialty Start Date End Date Jessica Santamaria MD [address] [place], [place] PCP - General 04/04/19 documented as of this encounter
--- OUTSIDE RECORDS SUMMARY | 2024-09-27 15:35 | XMS_ITS | Encounter Summary ---
Author Organization [facility] [place], Address [address] [place] [address] Phone Care Team Providers Care Tilt Wall Supervisor Name Role Phone Jessica Santamaria MD Primary Care Provider [phone] Encounter Details Date Type Department Care Team (Late st Contact Info) Description 09/15/2024 Telephone [facility] [place], [address] [place] [address] Karyn Ross [address] [place] [address] Social History Tobacco Use Types Packs/Day [...] tender and painful. Please return the call [phone] - thank you documented in this encounter Plan of Treatment Not on file documented as of this encounter Visit Diagnoses Not on filedocumented in this encounter Care Teams Tilt Wall Supervisor Relationship Specialty Start Date End Date Jessica Santamaria MD [address] [place], [place] PCP - General 04/04/19 documented as of this encounter
--- OUTSIDE RECORDS SUMMARY | 2024-09-27 15:35 | XMS_ITS | Encounter Summary ---
Author Organization [facility] [place], Address [address] [place] [address] Phone Care Team Providers Care Editor Farm Journal Name Role Phone Jessica Santamaria MD Primary Care Provider [phone] Encounter Details Date Type Department Care Team (Late st Contact Info) Description 02/16/2024 Documentation Only [facility] [place], [address] [place] [address] [place], [place] [address] [place] [address] Social History Tobacco Use Types [...] filedocumented in this encounter Care Teams Editor Farm Journal Relationship Specialty Start Date End Date Jessica Santamaria MD [address] [place], [place] PCP - General 04/04/19 documented as of this encounter
--- OUTSIDE RECORDS SUMMARY | 2024-09-27 15:35 | XMS_ITS | Encounter Summary ---
Author Organization [facility] [place], Address [address] [place] [address] Phone Care Team Providers Care Office Mover Name Role Phone Jessica Santamaria MD Primary Care Provider [phone] Encounter Details Date Type Department Care Team (Late st Contact Info) Description 09/20/2023 Documentation Only [facility] [place], [address] [place] [place] [address] [place], [place] [address] [place] [address] Social History Tobacco Use Types [...] on filedocumented in this encounter Care Teams Office Mover Relationship Specialty Start Date End Date Jessica Santamaria MD [address] [place], [place] PCP - General 04/04/19 documented as of this encounter
--- OUTSIDE RECORDS SUMMARY | 2024-09-27 15:35 | XMS_ITS | Encounter Summary ---
Author Organization [facility] [place], Address [address] [place] [address] Phone Care Team Providers Care Sand Cutting Machine Operator Name Role Phone Jessica Santamaria MD Primary Care Provider [phone] Encounter Details Date Type Department Care Team (Late st Contact Info) Description 09/28/2023 Documentation Only [facility] [place], [address] [place] [place] [address] [place], [place] [address] [place] [address] Social History Tobacco Use Types [...] on filedocumented in this encounter Care Teams Sand Cutting Machine Operator Relationship Specialty Start Date End Date Jessica Santamaria MD [address] [place], [place] PCP - General 04/04/19 documented as of this encounter
== END 2024-09-27 14:52 | disposition home or self-care (01) ==
LOC: HO.HMCH 14:14
PROVIDERS: PCP Internal Medicine; Visit Provider Internal Medicine
DX: N18.32 Chronic kidney disease, stage 3b (principal); N25.81 Secondary hyperparathyroidism of renal origin; E78.5 Hyperlipidemia, unspecified; E11.65 Type 2 diabetes mellitus with hyperglycemia; I10 Essential (primary) hypertension

== ENCOUNTER → 2024-09-27 14:13 | Outpatient (BNVA) | payer OTHER, SELFPAY | PROVIDERS: PCP Internal Medicine; Visit Provider Internal Medicine | DX: E11.65 Type 2 diabetes mellitus with hyperglycemia (principal); E11.22 Type 2 diabetes mellitus with diabetic chronic kidney disease; I12.9 Hypertensive chronic kidney disease with stage 1 through stage 4 chronic kidney disease, or unspecified chronic kidney disease; N18.32 Chronic kidney disease, stage 3b; M85.80 Other specified disorders of bone density and structure, unspecified site; N25.81 Secondary hyperparathyroidism of renal origin; E78.5 Hyperlipidemia, unspecified | CPT/HCPCS: 96127; 99212 ==

== ENCOUNTER 2024-10-09 10:14 | Outpatient (AMB) | payer OTHER, SELFPAY ==
[2024-10-09 10:19] VITALS: BP 131/59; PULSE 75; BMI 29.7
--- NOTE | 2024-10-09 10:19 | MHC.OFFVIS ---
Vital Signs 10/09/24 10:19 Height 5 ft Weight 152 lb 1.903 oz BMI 29.7 BP 131/59 L Blood Pressure Location Lt brachial Position Sitting Pulse 75 Intake Visit Reasons: 4 mo f/u Intake Note: Ginette presents in the office as a 4 month follow uo CC: She states that she states that she is not having pains in the stomach but she is having vomiting when she eats. She states that she gets some constipation at times. 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 (on tacrolimus and mycophenolate) being seen for f/u manager valuation used RECAP: Had been seeing Kaye Lambert issues: 1/ IBS-C 2/ GERD 3/constipation--tried linaclotide, amitiza, 2/2 to slow transit, opiates, CCB, and enlarged kidneys, possible pelvic flood dysfucntion colonoscopy 2017---diverticulosis, no other lesions 4/ suspected pancreas lesions I had seen her for left sided abdominal pain and ongoing chronic constipation referred to [facility] for ARM consideration given to movantik on days she is taking opiates she has to manually disimpact, can be painful to pass she is on oxycodone for back pain, takes 2-3 times/week the abx I gave her did reduce her bloating and gas US 12/18--polycystic kidneys, hepatic cysts, ovarian cyst 4.3 cm EGD for epigastric pain: 12/2021 gastritis duodenitis esophagitis path: pos H pylori Colonoscopy: 08/2022--- TA, random colo bx neg h pylori breath test was neg on f/u INTERIM: there was confusion regarding timing of movantik so I reviewed this with her constipation not that bad, denies abdominal pain seh had one day of n./v improved she is worried about her bowle habits still having blood in stool occasionally EXAM: GENERAL: The patient is well developed and nontoxic. VITAL SIGNS:see workflow HEENT: Nonicteric sclerae, PERRLA, EOMI. Oropharynx clear. Moist mucous membranes. Conjunctivae appear well perfused. No thyroid mass. CHEST: Chest wall is nontender. HEART: Regular rate and rhythm without murmurs. LUNGS: Clear to auscultation bilaterally. ABDOMEN: Soft, positive bowel sounds, mild tender epigastrium and around transplanted kidney, kidney palpable, no organomegaly.no flank tenderness SKIN: No rash, no excessive bruising, petechiae, or purpura. NEUROLOGIC: Cranial nerves II-XII intact without motor/sensory deficit. a/P; 1/ constipation- suspected opioid induced constipation--also maybe SE of her other meds farhana CCB and oxycodone , will get EGD and colo to r/o other causes 2/ reviewed movantik timing and use PLAN: 1/ retry movantik 2/ EGD and colo due to bowle habit and blood in stool, maybe hemorrhoidal PFSH Medical History Malnutrition Diabetes mellitus Right ankle pain Left ankle pain Fatigue Hair loss Back pain Pancreatic lesion Pneumonia due to COVID-19 virus Essential hypertension Surgical History History of esophagogastroduodenoscopy (EGD) Hx of colonoscopy Kidney transplant recipient AV fistula Kidney transplant status History of tubal ligation History of foot surgery History of lipoma History of benign breast tumor Family History Father CVD (cardiovascular disease) Prostate cancer Mother No problems noted. Social History Household Members: Children Housing: Apartment Alcohol intake: never Patient Tobacco Use Status: Former Tobacco user Tobacco use type: Cigarette e-Cigarette/Vaping Use: Never Used Second Hand Smoke Exposure: No service: No Current occupational status: unemployed Cognitive needs: No Hearing needs: No Vision needs: Yes Physical Exam Vital Signs: Last Vital Signs Pulse 75 10/09/24 10:19 BP 131/59 L 10/09/24 10:19 BMI result Body Mass Index 29.7 Assessment & Plan Assessment & Plan (1) Opioid-induced constipation: Code(s): K59.03 - Drug induced constipation; T40.2X5A - Adverse effect of other opioids, initial encounter Category: Medical Plan: as above Coding Level of Care Code Est Pt Level 3 (98993) Diagnoses Opioid-induced constipation K59.03; T40.2X5A
--- OUTSIDE RECORDS SUMMARY | 2024-10-09 10:44 | XMS_ITS | Encounter Summary ---
Author Organization [facility] Address [address] [place] [address] Phone Care Team Providers Care Contract Admin Name Role Phone Jessica Santamaria MD Primary Care Provider [phone] Encounter Details Date Type Department Care Team (Late Contact Info) Description 09/18/2024 Documentation Only [facility] [place], [address] [place] [address] [place], [place] [address] [place] [address] Social History Tobacco Use Types [...] Care Team (Late st Contact Info) Description 10/16/2024 3:00 PM EDT Clinical Support [facility] [place] [address] [place] [place] [address] Shavon Ng FNP-C [address] [place] [address] documented as of this encounter Visit Diagnoses Not on filedocumented in this encounter Care Teams Contract Admin Relationship Specialty Start Date End Date Jessica Santamaria MD [address] [place], [place] PCP - General 04/04/19 documented as of this encounter
--- OUTSIDE RECORDS SUMMARY | 2024-10-09 10:44 | XMS_ITS | Encounter Summary ---
Author Organization [facility] Address [address] [place] [address] Phone Care Team Providers Care Flight Crew Scheduler Name Role Phone Jessica Santamaria MD Primary Care Provider [phone] Encounter Details Date Type Department Care Team (Late Contact Info) Description 06/30/2024 Documentation Only [facility] [place], [address] [place] [address] [place], [place] [address] [place] [address] Social History Tobacco Use Types [...] Support [facility] [place] [address] [place] [address] Shavon Ng FNP-C [address] [place] [address] documented as of this encounter Visit Diagnoses Not on filedocumented in this encounter Care Teams Flight Crew Scheduler Relationship Specialty Start Date End Date Jessica Santamaria MD [address] [place], [place] PCP - General 04/04/19 documented as of this encounter
--- OUTSIDE RECORDS SUMMARY | 2024-10-09 10:44 | XMS_ITS | Clinical Summary ---
Author Organization [facility] [place], Address [address] [place] [address] [place] [address] Phone Care Team Providers Care Vice President Process Name Role Phone Jessica Santamaria MD Primary Care Provider [phone] Allergies Active Allergy Reactions Criticality Noted Date [...] Encounters Date Type Department Care Team Description 10/05/2024 Telephone [facility] [place], [address] [place] [address] Karyn Ross 09/27/2024 Documentation Only [facility] [address] [place] [address] Hiwot Smith MA 09/18/2024 Documentation Only [facility] [address] [place] [address] Hiwot Smith MA 09/18/2024 Documentation Only [facility] [address] [place] [address] Hiwot Smith MA 09/15/2024 Orders Only [facility] [address] [place] [address] Zoe Vásquez RN Stage 3b chronic kidney disease (HCC) (Primary Dx); History of renal transplant; History of immunosuppressive therapy; Type 2 diabetes mellitus without complication (HCC); Secondary hyperparathyroidism (HCC); Hyperglycemia, not otherwise specified; Hypomagnesemia; Iron deficiency anemia, not otherwise specified 09/15/2024 Telephone [facility] [address] [place] [address] Karyn Ross from Last 3 Months Immunizations Immunization Administration [...] Support [facility] [place] [address] [address] Shavon Ng FNP-C [address] [address] Health Maintenance Due Date Last Done Comments [...] Visual Foot Exam 10/01/2021 Diabetes: Hemoglobin A1C 02/13/202311/13/ 023, 09/09/2022, 05/13/2022, Additional history exists Influenza [...] AM EDT) Hemoglobin A1C 6.4(H) (4.0-5.6) % [facility] Comment: MONITORING: In known diabetic patients, hemoglobin A1c targets should be discussed with health care provider. DIAGNOSTIC USE: ??The [place] Diabetes Association (ADA) and the World Health [...] Supplement 1 Testing performed or reported by [facility], a Service of [facility], [address] [place] [id number] Tate Pham MD, Yard Spotter [facility]# [id number] Blood (Blood, Venous) 11/13/2022 9:47 AM EDT 11/13/2022 9:48 AM EDT us Rony MEHTA LAB BLOOD ORDERABLES Final Re sult [facility] from Last 3 Months or Most Recently [place] [id number] [facility] [place] [id number] [place] [id number] Care Teams Vice President Process Relationship Specialty Start Date End Date Jessica Santamaria MD [address] [place], [place] PCP - General 04/04/19
--- OUTSIDE RECORDS SUMMARY | 2024-10-09 10:44 | XMS_ITS | Encounter Summary ---
Author Organization [facility] Address [address] [place] [address] Phone Care Team Providers Care Travel Sales Consultant Name Role Phone Jessica Santamaria MD Primary Care Provider [phone] Encounter Details Date Type Department Care Team (Late Contact Info) Description 09/18/2024 Documentation Only [facility] [place], [address] [place] [address] [place], [place] [address] [place] [address] Social History Tobacco Use Types [...] Support [facility] [place] [address] [place] [address] Shavon Ng FNP-C [address] [place] [address] documented as of this encounter Visit Diagnoses Not on filedocumented in this encounter Care Teams Travel Sales Consultant Relationship Specialty Start Date End Date Jessica Santamaria MD [address] [place], [place] PCP - General 04/04/19 documented as of this encounter
--- OUTSIDE RECORDS SUMMARY | 2024-10-09 10:44 | XMS_ITS | Encounter Summary ---
Author Organization [facility] Address [address] [place] [address] Phone Care Team Providers Care Material Control Specialist Name Role Phone Jessica Santamaria MD Primary Care Provider [phone] Encounter Details Date Type Department Care Team (Late Contact Info) Description 11/18/2023 Documentation Only [facility] [place], [address] [place] [address] Hiwot SmithCRIVITZ, [place] [address] [place] [address] Social History Tobacco Use Types [...] Support [facility] [place] [address] [place] [address] Shavon Ng FNP-C [address] [place] [address] documented as of this encounter Visit Diagnoses Not on filedocumented in this encounter Care Teams Material Control Specialist Relationship Specialty Start Date End Date Jessica Santamaria MD [address] [place], [place] PCP - General 04/04/19 documented as of this encounter
--- OUTSIDE RECORDS SUMMARY | 2024-10-09 10:44 | XMS_ITS | Encounter Summary ---
Author Organization [facility], Address [address] [facility] [address] [place] [address] Phone Care Team Providers Care Sales Representative Business Courses Name Role Phone Jessica Santamaria MD Primary Care Provider [phone] Reason for Visit * Reason Comments Med Refill Encounter Details Date Type Department Care Team (Late st Contact Info) Description 08/24/2022 Refill [facility] [address] [place] [address] Rony Donato PA Social History Tobacco [...] Support [facility] Of [address] [place] [address] Shavon Ng FNP-C [address] [facility] [place] [address] documented as of this encounter Visit Diagnoses Not on filedocumented in this encounter Care Teams Sales Representative Business Courses Relationship Specialty Start Date End Date Jessica Santamaria MD [address] [place] [address] PCP - General 04/04/19 documented as of this encounter
--- OUTSIDE RECORDS SUMMARY | 2024-10-09 10:44 | XMS_ITS | Encounter Summary ---
Author Organization [facility], Address [address] [facility] [address] [place] [address] Phone Care Team Providers Care Reaming Press Operator Name Role Phone Jessica Santamaria MD Primary Care Provider [phone] Reason for Visit * Reason Comments Med Refill Encounter Details Date Type Department Care Team (Late st Contact Info) Description 06/20/2021 Refill [facility] [address] [place] [address] Rony Donato PA Social History Tobacco [...] Support [facility] Of [address] [place] [address] Shavon Ng FNP-C [address] [place] [address] documented as of this encounter Visit Diagnoses Not on filedocumented in this encounter Care Teams Reaming Press Operator Relationship Specialty Start Date End Date Jessica Santamaria MD [address] [place] [address] PCP - General 04/04/19 documented as of this encounter
--- OUTSIDE RECORDS SUMMARY | 2024-10-09 10:44 | XMS_ITS | Encounter Summary ---
Author Organization [facility] Address [address] [place] [address] Phone Care Team Providers Care Toolroom Checker Name Role Phone Jessica Santamaria MD Primary Care Provider [phone] Encounter Details Date Type Department Care Team (Late Contact Info) Description 10/05/2023 Documentation Only [facility] [place], [address] [place] [address] Hiwot SmithJBSA [place], [place] [address] [place] [address] Social History Tobacco Use Types [...] Support [facility] [place] [address] [place] [address] Shavon Ng FNP-C [address] [place] [address] documented as of this encounter Visit Diagnoses Not on filedocumented in this encounter Care Teams Toolroom Checker Relationship Specialty Start Date End Date Jessica Santamaria MD [address] [place], [place] PCP - General 04/04/19 documented as of this encounter
--- OUTSIDE RECORDS SUMMARY | 2024-10-09 10:44 | XMS_ITS | Encounter Summary ---
Author Organization [facility] Address [address] [place] [address] Phone Care Team Providers Care Premium Service Representative Name Role Phone Jessica Santamaria MD Primary Care Provider [phone] Encounter Details Date Type Department Care Team (Late Contact Info) Description 10/05/2024 Telephone [facility], [address] [place] [address] K[address] Ross [address] [place] [address] Social History Tobacco Use Types Packs/Day [...] * Telephone Encounter - Karyn Ross - 10/05/2024 1:02 PM EDT Hi. Peng called to make an appt, missed her 09/04 appt. Thank you documented in this encounter Plan of Treatment Upcoming Encounters Date Type Department Care Team (Late Contact Info) Description 10/16/2024 3:00 PM EDT Clinical Support [facility] [address] [place] [address] Shavon Ng, HELP DESK ASSISTANT-C [address] [place] [address] documented as of this encounter Visit Diagnoses Not on filedocumented in this encounter Care Teams Premium Service Representative Relationship Specialty Start Date End Date Jessica Santamaria MD [address] [place], [place] PCP - General 04/04/19 documented as of this encounter
--- OUTSIDE RECORDS SUMMARY | 2024-10-09 10:44 | XMS_ITS | Encounter Summary ---
Author Organization [facility] Address [address] [place] [address] Phone Care Team Providers Care Manager Cost Name Role Phone Jessica Santamaria MD Primary Care Provider [phone] Encounter Details Date Type Department Care Team (Late Contact Info) Description 09/28/2023 Documentation Only [facility] [place], [address] [place] [address] Hiwot [place]MILL[place], [place] [address] [place] [address] Social History Tobacco Use Types [...] Support [facility] [place] [address] [place] [address] Shavon Ng FNP-C [address] [place] [address] documented as of this encounter Visit Diagnoses Not on filedocumented in this encounter Care Teams Manager Cost Relationship Specialty Start Date End Date Jessica Santamaria MD [address] [place], [place] PCP - General 04/04/19 documented as of this encounter
--- OUTSIDE RECORDS SUMMARY | 2024-10-09 10:44 | XMS_ITS | Encounter Summary ---
Author Organization [facility] Address [address] [place] [address] Phone Care Team Providers Care Santa'S Helper Name Role Phone Jessica Santamaria MD Primary Care Provider [phone] Encounter Details Date Type Department Care Team (Late Contact Info) Description 02/16/2024 Documentation Only [facility] [place], [address] [place] [address] Hiwot [place], [place] [address] [place] [address] Social History Tobacco Use Types [...] Support [facility] [place] [address] [place] [address] Shavon Ng FNP-C [address] [place] [address] documented as of this encounter Visit Diagnoses Not on filedocumented in this encounter Care Teams Santa'S Helper Relationship Specialty Start Date End Date Jessica Santamaria MD [address] [place], [place] PCP - General 04/04/19 documented as of this encounter
--- OUTSIDE RECORDS SUMMARY | 2024-10-09 10:44 | XMS_ITS | Encounter Summary ---
Author Organization [facility] [place], Address [address] [address] Phone Care Team Providers Care Center Mgr Name Role Phone Jessica Santamaria MD Primary Care Provider [phone] Reason for Visit * Reason Comments Med Refill Encounter Details Date Type Department Care Team (Late st Contact Info) Description 07/13/2022 Refill [facility] [address] [place] [address] Alvaro Stratton MD [address] [place] [address] [place] [address] Social History Tobacco Use Types [...] Clinical Support [facility] [address] [place] [address] Shavon Ng FNP-C [address] [place] [place] [address] documented as of this encounter Visit Diagnoses Not on filedocumented in this encounter Care Teams Center Mgr Relationship Specialty Start Date End Date Jessica Santamaria MD [address] [place], [place] PCP - General 04/04/19 documented as of this encounter
--- OUTSIDE RECORDS SUMMARY | 2024-10-09 10:44 | XMS_ITS | Encounter Summary ---
Author Organization [facility] Address [address] [place] [address] Phone Care Team Providers Care Billet Bed Operator Name Role Phone Jessica Santamaria MD Primary Care Provider [phone] Encounter Details Date Type Department Care Team (Late Contact Info) Description 04/28/2024 Documentation Only [facility] [place], [address] [place] [address] Hi[place]ot [place], [place] [address] [place] [address] Social History Tobacco Use Types [...] Support [facility] [place] [address] [place] [address] Shavon Ng FNP-C [address] [place] [address] documented as of this encounter Visit Diagnoses Not on filedocumented in this encounter Care Teams Billet Bed Operator Relationship Specialty Start Date End Date Jessica Santamaria MD [address] [place], [place] PCP - General 04/04/19 documented as of this encounter
--- OUTSIDE RECORDS SUMMARY | 2024-10-09 10:44 | XMS_ITS | Encounter Summary ---
Author Organization [facility] Address [address] [place] [address] Phone Care Team Providers Care Corporate Strategy Analyst Name Role Phone Jessica Santamaria MD Primary Care Provider [phone] Encounter Details Date Type Department Care Team (Late Contact Info) Description 09/20/2023 Documentation Only [facility] [place], [address] [facility] [place] [address] [place]ot [place], [place] [address] [place] [address] Social History Tobacco Use Types [...] Support [facility] [place] [address] [place] [address] Shavon Ng FNP-C [address] [place] [address] documented as of this encounter Visit Diagnoses Not on filedocumented in this encounter Care Teams Corporate Strategy Analyst Relationship Specialty Start Date End Date Jessica Santamaria MD [address] [place], [place] PCP - General 04/04/19 documented as of this encounter
--- OUTSIDE RECORDS SUMMARY | 2024-10-09 10:44 | XMS_ITS | Encounter Summary ---
Author Organization [facility] Address [address] [place] [address] Phone Care Team Providers Care Mortgage Funder Name Role Phone Jessica Santamaria MD Primary Care Provider [phone] Encounter Details Date Type Department Care Team (Late Contact Info) Description 06/30/2024 Documentation Only [facility] [place], [address] [place] [address] Hiwot SmithSAN [place], [place] [address] [place] [address] Social History Tobacco Use Types [...] Support [facility] [place] [address] [place] [address] Shavon Ng FNP-C [address] [place] [address] documented as of this encounter Visit Diagnoses Not on filedocumented in this encounter Care Teams Mortgage Funder Relationship Specialty Start Date End Date Jessica Santamaria MD [address] [place], [place] PCP - General 04/04/19 documented as of this encounter
--- OUTSIDE RECORDS SUMMARY | 2024-10-09 10:44 | XMS_ITS | Encounter Summary ---
Author Organization [facility] Address [address] [place] [address] Phone Care Team Providers Care Museum Informatics Specialist Name Role Phone Jessica Santamaria MD Primary Care Provider [phone] Encounter Details Date Type Department Care Team (Late Contact Info) Description 09/15/2024 Telephone [facility] [place], [address] [place] [place] [address] Karyn Ross [address] [place] [address] Social History Tobacco Use Types Packs/Day [...] tender and painful. Please return the call [phone] - thank you documented in this encounter Plan of Treatment Upcoming Encounters Date Type Department Care Team (Late st Contact Info) Description 10/16/2024 3:00 PM EDT Clinical Support [facility] [place] [address] [place] [address] Shavon Ng, MUCK HAULER-Tanesha [address] [place] [address] documented as of this encounter Visit Diagnoses Not on filedocumented in this encounter Care Teams Museum Informatics Specialist Relationship Specialty Start Date End Date Jessiac Santamaria MD [address] [place], [place] PCP - General 04/04/19 documented as of this encounter
--- OUTSIDE RECORDS SUMMARY | 2024-10-09 10:44 | XMS_ITS | Encounter Summary ---
Author Organization [facility], Address PO [facility] [address] [place] [address] Phone Care Team Providers Care Electron Beam Machine Welder Setter Name Role Phone Jessica Santamaria MD Primary Care Provider [phone] Reason for Visit * Reason Comments Med Refill Encounter Details Date Type Department Care Team (Late st Contact Info) Description 06/23/2022 Refill [facility] [address] [place] [address] Rony Donato PA Social History Tobacco [...] Support [facility] Of [address] [place] [address] Shavon Ng FNP-C [address] [place] [address] [place] [address] documented as of this encounter Visit Diagnoses Not on filedocumented in this encounter Care Teams Electron Beam Machine Welder Setter Relationship Specialty Start Date End Date Jessica Santamaria MD [address] [place] [address] PCP - General 04/04/19 documented as of this encounter
--- OUTSIDE RECORDS SUMMARY | 2024-10-09 10:44 | XMS_ITS | Encounter Summary ---
Author Organization [facility] Address [address] [place] [address] Phone Care Team Providers Care Food Production Worker Name Role Phone Jessica Santamaria MD Primary Care Provider [phone] Encounter Details Date Type Department Care Team (Late Contact Info) Description 09/27/2024 Documentation Only [facility] [place], [address] [place] [address] Hiwot SmithHILLI[place], [place] [address] [place] [address] Social History Tobacco Use Types [...] Support [facility] [place] [address] [place] [address] Shavon Ng FNP-C [address] [place] [address] documented as of this encounter Visit Diagnoses Not on filedocumented in this encounter Care Teams Food Production Worker Relationship Specialty Start Date End Date Jessica Santamaria MD [address] [place], [place] PCP - General 04/04/19 documented as of this encounter
--- OUTSIDE RECORDS SUMMARY | 2024-10-09 10:44 | XMS_ITS | Encounter Summary ---
Author Organization [facility], Address [address] [facility] [address] [place] [address] Phone Care Team Providers Care Department Store General Manager Name Role Phone Jessica Santamaria MD Primary Care Provider [phone] Reason for Visit * Reason Comments Med Refill Encounter Details Date Type Department Care Team (Late st Contact Info) Description 06/11/2021 Refill [facility] [address] [place] [address] Rony Donato [...] Support [facility] Of [address] [place] [address] Shavon Ng FNP-C [address] [place] [address] documented as of this encounter Visit Diagnoses Not on filedocumented in this encounter Care Teams Department Store General Manager Relationship Specialty Start Date End Date Jessica Santamaria MD [address] [place] [address] PCP - General 04/04/19 documented as of this encounter
--- OUTSIDE RECORDS SUMMARY | 2024-10-09 10:44 | XMS_ITS | Encounter Summary ---
Author Organization [facility], Address PO [facility] [address] [place] [address] Phone Care Team Providers Care Metal Machine Setter Name Role Phone Jessica Santamaria MD Primary Care Provider [phone] Reason for Visit * Reason Comments Med Refill Encounter Details Date Type Department Care Team (Late st Contact Info) Description 07/20/2023 Refill [facility] [address] [place] [address] Rony Donato PA Social History Tobacco [...] Support [facility] Of [address] [place] [address] Shavon Ng FNP-C [address] [place] [address] [place] [address] documented as of this encounter Visit Diagnoses Not on filedocumented in this encounter Care Teams Metal Machine Setter Relationship Specialty Start Date End Date Jessica Santamaria MD [address] [place] [address] PCP - General 04/04/19 documented as of this encounter
--- OUTSIDE RECORDS SUMMARY | 2024-10-09 10:44 | XMS_ITS | Encounter Summary ---
Author Organization [facility], Address PO [facility] [address] [place] [address] Phone Care Team Providers Care Feeder Tender Name Role Phone Jessica Santamaria MD Primary Care Provider [phone] Reason for Visit * Reason Comments Med Refill Encounter Details Date Type Department Care Team (Late st Contact Info) Description 06/23/2021 Refill [facility] [address] [place] [address] Rony Donato PA Social History Tobacco [...] [facility] Of [address] [place] [address] Shavon Ng FNP-C [address] [facility] [place] [address] documented as of this encounter Visit Diagnoses Not on filedocumented in this encounter Care Teams Feeder Tender Relationship Specialty Start Date End Date Jessica Santamaria MD [address] [place] [address] PCP - General 04/04/19 documented as of this encounter
--- OUTSIDE RECORDS SUMMARY | 2024-10-09 10:44 | XMS_ITS | Encounter Summary ---
Author Organization [facility] Address [address] [place] [address] Phone Care Team Providers Care Respiratory Therapy Manager Name Role Phone Jessica Santamaria MD Primary Care Provider [phone] Encounter Details Date Type Department Care Team (Late Contact Info) Description 08/20/2023 Documentation Only [facility] [place], [address] [facility] [address] [place] [address] [place]ot [place], [place] [address] [place] [address] Social History Tobacco Use Types [...] Support [facility] [place] [address] [facility] [place] [address] Shavon Ng FNP-C [address] [place] [address] documented as of this encounter Visit Diagnoses Not on filedocumented in this encounter Care Teams Respiratory Therapy Manager Relationship Specialty Start Date End Date Jessica Santamaria MD [address] [place], [place] PCP - General 04/04/19 documented as of this encounter
--- OUTSIDE RECORDS SUMMARY | 2024-10-09 10:44 | XMS_ITS | Encounter Summary ---
Author Organization [facility] [place], Address [address] [place] [address] Phone Care Team Providers Care Horse Shoer Name Role Phone Jessica Santamaria MD Primary Care Provider [phone] Reason for Visit * Reason Comments Med Refill Encounter Details Date Type Department Care Team (Late st Contact Info) Description 04/16/2022 Refill [facility] [address] [place] [address] Rony Donato PA Social History Tobacco [...] Clinical Support [facility] [address] [place] [address] Shavon Ng FNP-C [address] [place] [address] documented as of this encounter Visit Diagnoses Not on filedocumented in this encounter Care Teams Horse Shoer Relationship Specialty Start Date End Date Jessica Santamaria MD [address] [place], [place] PCP - General 04/04/19 documented as of this encounter
--- OUTSIDE RECORDS SUMMARY | 2024-10-09 10:44 | XMS_ITS | Encounter Summary ---
Author Organization [facility] Address [address] [address] Phone Care Team Providers Care Drapery Inspector Name Role Phone Jessica Santamaria MD Primary Care Provider [phone] Reason for Visit * Reason Comments Med Refill Encounter Details Date Type Department Care Team (Late st Contact Info) Description 04/12/2023 Refill [facility], [address] [address] [place] [address] Alvaro Stratton MD [address] [facility] [place] [address] Social History Tobacco Use Types [...] Clinical Support [facility] [address] [address] [place] [address] Shavon Ng FNP-C [address] [place] [address] documented as of this encounter Visit Diagnoses Not on filedocumented in this encounter Care Teams Drapery Inspector Relationship Specialty Start Date End Date Jessica Santamaria MD [address] [place], [place] PCP - General 04/04/19 documented as of this encounter
--- OUTSIDE RECORDS SUMMARY | 2024-10-09 10:44 | XMS_ITS | Encounter Summary ---
Author Organization [facility] Address [address] [place] [address] Phone Care Team Providers Care Engineering Group Manager Name Role Phone Jessica Santamaria MD Primary Care Provider [phone] Encounter Details Date Type Department Care Team (Late Contact Info) Description 09/20/2023 Documentation Only [facility] [place], [address] [place] [address] [place], [place] [address] [place] [address] Social History Tobacco Use Types [...] Support [facility] [place] [address] [place] [address] Shavon Ng FNP-C [address] [place] [address] documented as of this encounter Visit Diagnoses Not on filedocumented in this encounter Care Teams Engineering Group Manager Relationship Specialty Start Date End Date Jessica Santamaria MD [address] [place], [place] PCP - General 04/04/19 documented as of this encounter
== END 2024-10-09 11:00 | disposition home or self-care (01) ==
LOC: HO.HGI 10:14
PROVIDERS: PCP Internal Medicine; Visit Provider Internal Medicine Gastroenterology
DX: K59.03 Drug induced constipation (principal); T40.2X5A Adverse effect of other opioids, initial encounter
CPT/HCPCS: 99213

== ENCOUNTER → 2024-10-09 10:14 | Outpatient (BNVA) | payer OTHER, SELFPAY | PROVIDERS: PCP Internal Medicine; Visit Provider Internal Medicine Gastroenterology | DX: K59.03 Drug induced constipation (principal); T40.2X5A Adverse effect of other opioids, initial encounter; Y92.9 Unspecified place or not applicable | CPT/HCPCS: 99212 ==

== ENCOUNTER 2024-10-19 10:31 | Outpatient (REF) | payer OTHER, SELFPAY ==
--- OUTSIDE RECORDS SUMMARY | 2024-10-19 11:07 | XMS_ITS | Encounter Summary ---
Author Organization [facility] Address [address] [place] [address] Phone Care Team Providers Care Automotive Electrician Name Role Phone Jessica Santamaria MD Primary Care Provider [phone] Encounter Details Date Type Department Care Team (Late Contact Info) Description 02/16/2024 Documentation Only [facility] [place], [address] [place] [address] [place], [place] [address] [place] [address] Social History Tobacco Use Types [...] Care Team (Late st Contact Info) Description 12/21/2024 1:30 PM EDT Clinical Support [facility] [place] [address] [place] [address] Shavon Ng FNP-C [address] [place] [address] documented as of this encounter Visit Diagnoses Not on filedocumented in this encounter Care Teams Automotive Electrician Relationship Specialty Start Date End Date Jessica Santamaria MD [address] [place], [place] PCP - General 04/04/19 documented as of this encounter
--- OUTSIDE RECORDS SUMMARY | 2024-10-19 11:07 | XMS_ITS | Encounter Summary ---
Author Organization [facility], Address PO [facility] [address] [place] [address] Phone Care Team Providers Care Document Preparation Specialist Name Role Phone Jessica Santamaria MD Primary Care Provider [phone] Reason for Visit * Reason Comments Med Refill Encounter Details Date Type Department Care Team (Late st Contact Info) Description 06/20/2021 Refill [facility] [address] [place] [address] Rony Donato PA Social History Tobacco [...] Support [facility] Of [address] [place] [address] Shavon Ng FNP-C [address] [place] [address] documented as of this encounter Visit Diagnoses Not on filedocumented in this encounter Care Teams Document Preparation Specialist Relationship Specialty Start Date End Date Jessica Santamaria MD [address] [place] [address] PCP - General 04/04/19 documented as of this encounter
--- OUTSIDE RECORDS SUMMARY | 2024-10-19 11:07 | XMS_ITS | Encounter Summary ---
Author Organization [facility], Address PO [facility] [address] [place] [address] Phone Care Team Providers Care Film Sound Coordinator Name Role Phone Jessica Santamaria MD Primary Care Provider [phone] Reason for Visit * Reason Comments Med Refill Encounter Details Date Type Department Care Team (Late st Contact Info) Description 06/23/2021 Refill [facility] [address] [place] [address] Rony Donato PA Social History Tobacco [...] Support [facility] Of [address] [place] [address] Shavon Ng FNP-C [address] [place] [address] documented as of this encounter Visit Diagnoses Not on filedocumented in this encounter Care Teams Film Sound Coordinator Relationship Specialty Start Date End Date Jessica Santamaria MD [address] [place] [address] PCP - General 04/04/19 documented as of this encounter
--- OUTSIDE RECORDS SUMMARY | 2024-10-19 11:07 | XMS_ITS | Encounter Summary ---
Author Organization [facility] Address [address] [place] [address] Phone Care Team Providers Care Electric Mule Operator Name Role Phone Jessica Santamaria MD Primary Care Provider Encounter Details Date Type Department Care Team (Late Contact Info) Description 09/20/2023 Documentation Only [facility] [place], [address] [place] [address] [place] [address] [place] [address] Social History Tobacco Use Types [...] Support [facility] [place] [address] [place] [address] Shavon Ng FNP-C [address] [place] [address] documented as of this encounter Visit Diagnoses Not on filedocumented in this encounter Care Teams Electric Mule Operator Relationship Specialty Start Date End Date Jessica Santamaria MD [address] [place], [place] PCP - General 04/04/19 documented as of this encounter
--- OUTSIDE RECORDS SUMMARY | 2024-10-19 11:07 | XMS_ITS | Encounter Summary ---
Author Organization [facility] Address [address] [place] [address] Phone Care Team Providers Care Hospice Team Lead Name Role Phone Jessica Santamaria MD Primary Care Provider [phone] Encounter Details Date Type Department Care Team (Late Contact Info) Description 11/18/2023 Documentation Only [facility] [place], [address] [place] [address] [place], [place] [address] [place] [address] Social History Tobacco Use Types [...] Support [facility] [place] [address] [place] [address] Shavon Ng FNP-C [address] [place] [address] documented as of this encounter Visit Diagnoses Not on filedocumented in this encounter Care Teams Hospice Team Lead Relationship Specialty Start Date End Date Jessica Santamaria MD [address] [place], [place] PCP - General 04/04/19 documented as of this encounter
--- OUTSIDE RECORDS SUMMARY | 2024-10-19 11:07 | XMS_ITS | Encounter Summary ---
Author Organization [facility] Address [address] [place] [address] Phone Care Team Providers Care Robotics Technician Name Role Phone Jessica Santamaria MD Primary Care Provider [phone] Encounter Details Date Type Department Care Team (Late Contact Info) Description 06/30/2024 Documentation Only [facility] [place], [address] [place] [place] [address] [place] [address] [place] [address] Social History Tobacco Use Types [...] Support [facility] [place] [address] [place] [place] [address] Shavon Ng FNP-C [address] [place] [place] [address] documented as of this encounter Visit Diagnoses Not on filedocumented in this encounter Care Teams Robotics Technician Relationship Specialty Start Date End Date Jessica Santamaria MD [address] [place], [place] PCP - General 04/04/19 documented as of this encounter
--- OUTSIDE RECORDS SUMMARY | 2024-10-19 11:07 | XMS_ITS | Encounter Summary ---
Author Organization [facility], Address PO [facility] [address] [place] [address] Phone Care Team Providers Care Field Broomer Name Role Phone Jessica Santamaria MD Primary Care Provider Reason for Visit * Reason Comments Med Refill Encounter Details Date Type Department Care Team (Late st Contact Info) Description 06/11/2021 Refill [facility] [address] [place] [address] Rony Donato PA Social History Tobacco [...] Support [facility] Of [address] [place] [address] Shavon Ng FNP-C [address] [place] [address] documented as of this encounter Visit Diagnoses Not on filedocumented in this encounter Care Teams Field Broomer Relationship Specialty Start Date End Date Jessica Santamaria MD [address] [place] [address] PCP - General 04/04/19 documented as of this encounter
--- OUTSIDE RECORDS SUMMARY | 2024-10-19 11:07 | XMS_ITS | Encounter Summary ---
Author Organization [facility] Address [address] [place] [address] Phone Care Team Providers Care Emergency Care Attendant Name Role Phone Jessica Santamaria MD Primary Care Provider [phone] Encounter Details Date Type Department Care Team (Late st Contact Info) Description 09/15/2024 Telephone [facility] [address] [address] Karyn Ross Social History Tobacco Use Types Packs/Day Years [...] tender and painful. Please return the call [phone] - thank you documented in this encounter Plan of Treatment Upcoming Encounters Date Type Department Care Team (Late st Contact Info) Description 12/21/2024 1:30 PM EDT Clinical Support [facility] [address] [place] [address] Shavon Ng, HAI-C [address] [place] [address] documented as of this encounter Visit Diagnoses Not on filedocumented in this encounter Care Teams Emergency Care Attendant Relationship Specialty Start Date End Date Jessica Santamaria MD [address] [place] [address] PCP - General 04/04/19 documented as of this encounter
--- OUTSIDE RECORDS SUMMARY | 2024-10-19 11:07 | XMS_ITS | Encounter Summary ---
Author Organization [facility] Address [address] [place] [address] Phone Care Team Providers Care Nephrologist Name Role Phone Jessica Santamaria MD Primary Care Provider [phone] Encounter Details Date Type Department Care Team (Late Contact Info) Description 09/27/2024 Documentation Only [facility] [place], [address] [place] [address] [place] [address] [place] [address] Social History Tobacco Use Types [...] Support [facility] [place] [address] [place] [address] Shavon Ng FNP-C [address] [place] [place] [address] documented as of this encounter Visit Diagnoses Not on filedocumented in this encounter Care Teams Nephrologist Relationship Specialty Start Date End Date Jessica Santamaria MD [address] [place], [place] PCP - General 04/04/19 documented as of this encounter
--- OUTSIDE RECORDS SUMMARY | 2024-10-19 11:07 | XMS_ITS | Clinical Summary ---
Author Organization [facility] [place], Address [address] [place] [address] [place] [address] Phone Care Team Providers Care Bonderite Operator Name Role Phone Jessica Santamaria MD Primary Care Provider Allergies Active Allergy Reactions Criticality Noted Date [...] Encounters Date Type Department Care Team Description 10/19/2024 Telephone [facility] [place] [address] [place] [address] Felicity Babcock 10/16/2024 3:15 PM EDT Office Visit [facility] [address] [place] [address] Alvaro [place] MD History of renal transplant (Primary Dx); History of immunosuppressive therapy; Stage 3a chronic kidney disease (HCC); Hyperlipidemia, not otherwise specified 10/16/2024 Orders Only [facility] [address] [place] [address] Caitlin Gomez Stage 3b chronic kidney disease (HCC) (Primary Dx); Urinary tract infectious disease 10/05/2024 Telephone [facility] [address] [place] [address] Karyn Ross 09/27/2024 Documentation Only [facility] [address] [place] [address] Hiwot Smith [place] 09/18/2024 Documentation Only [facility] [address] [place] [address] Hiwot Smith [place] 09/18/2024 Documentation Only [facility] [address] [place] [address] Hiwot Smith [place] 09/15/2024 Orders Only [facility] [address] [place] [address] Zoe Vásquez RN Stage 3b chronic kidney disease (HCC) (Primary Dx); History of renal transplant; History of immunosuppressive therapy; Type 2 diabetes mellitus without complication (HCC); Secondary hyperparathyroidism (HCC); Hyperglycemia, not otherwise specified; Hypomagnesemia; Iron deficiency anemia, not otherwise specified 09/15/2024 Telephone [facility] [address] [place] [address] Karyn Ross from Last 3 Months Immunizations [...] Sign Reading Time Taken Comments Blood Pressure 100/60 10/16/2024 3:13 PM EDT Pulse 77 07/03/2024 6:48 PM EST Temperature [...] Support [facility] [place] [address] [place] [address] Shavon Ng FNP-C [address] [place] [address] Health Maintenance Due Date Last Done Comments [...] AM EDT) Hemoglobin A1C 6.4(H) (4.0-5.6) % [facility] Comment: MONITORING: In known diabetic patients, hemoglobin A1c targets should be discussed with health care provider. DIAGNOSTIC USE: ??The [place] Diabetes [employer] (ADA) and the World Health [...] Supplement 1 Testing performed or reported by [facility], a Service of [facility], [address] [place] [id number] Tate Pham MD, Battery Assembler Dry Cell [facility]# [id number] Blood specimen (specimen) Venous blood / Unknown 11/13/2022 9:47 AM EDT 11/13/2022 9:48 AM EDT us Rony MEHT[facility] BLOOD ORDERABLES Final Re sult [facility] from Last 3 Months or Most Recently Relevant to Health Maintenance Insurance [facility] Medicaid Care Teams Bonderite Operator Relationship Specialty Start Date End Date Jessica Santamaria MD [address] [place], [place] PCP - General 04/04/19
--- OUTSIDE RECORDS SUMMARY | 2024-10-19 11:07 | XMS_ITS | Encounter Summary ---
Author Organization [facility], Address [address] [address] Phone Care Team Providers Care Social Secretary Name Role Phone Jessica Santamaria MD Primary Care Provider [phone] Reason for Referral * Procedures (Routine) - Pending Review Specialty Diagnoses / Procedures Referred By Cristiana guillory Referred To Contact Vascular Access Surgery Diagnoses History of renal transplant History of immunosuppressive therapy Stage 3a chronic kidney disease (HCC) Hyperlipidemia, not otherwise specified Alvaro Stratton MD [address] [place] [address] [place] [address] Phone: tel: fax: Referral ID Status Reason Start Date Expiration Date V isits Requested Visits Authorized [id number] Pending Review 10/16/2024 10/16/2025 1 1 Encounter Details Date Type Department Care Team (Latest Contact Info) Description 10/16/2024 3:15 PM EDT Office Visit [facility] [address] [place] [address] Alvaro Stratton MD [address] [place] [address] [place] [address] History of renal transplant (Primary Dx); History of immunosuppressive therapy; Stage 3a chronic kidney disease (HCC); Hyperlipidemia, not otherwise specified Social History Tobacco Use [...] on file documented as of this encounter Last Filed Vital Signs Vital Sign Reading Time Taken Comments Blood Pressure 100/60 10/16/2024 3:13 PM EDT Pulse - - Temperature - - Respiratory Rate - - Oxygen Saturation - - Inhaled Oxygen Concentration - - Weight - - Height - - Body Mass Index - - documented in this encounter Progress Notes * Alvaro Stratton MD - 10/16/2024 3:00 PM EDT . documented in this encounter H&P Notes * Alvaro Stratton MD - 10/16/2024 3:15 PM EDT Images from the original note were not included. PATIENT: Ginette Sanchez : 1965 ENCOUNTER: 10/16/2024 PCP: Jessica Santamaria MD Ginette Sanchez is a 59 y.o. year old patient with a history of ESRD and is s/p kidney transplantation presenting for routine transplant follow up. Donor Kidney Transplant Date of Transplant: March 03, 2018 [facility] Immunosuppression: Tacrolimus and mycophenolate Creatinine 1.2-1.4 In the interval since our last visit I have had the opportunity to review the following, if available: -laboratory data, imaging studies, and cardiovascular data -current medications from the patient; any changes from previous (including information from the patient's pharmacy, [facility], and Care Everywhere) -Transplant Data Sheet During this visit I had the opportunity for a full review of systems and limited physical exam as outlined below, with the pertinent findings noted and others found to be negative or noncontributory to the current assessment of this patient. HPI and recent/active issues include: Ginette came in today with a complaint about everything. She also complains about discomfort in her fistula. The fistula looks fine with no redness; it is patent. ROS: Multiple somatic complaints GENERAL MEDICAL HISTORY: Patient Active Problem List Diagnosis Date Noted ??? Stage 3a chronic kidney disease (HCC) 06/16/2023 ??? Obese class I 11/12/2022 ??? Neuropathy 12/16/2021 ??? Type 2 diabetes mellitus without complication (HCC) 10/01/2021 ??? Lumbar radiculopathy 07/30/2021 ??? Insomnia 07/30/2021 ??? Tinea versicolor 05/14/2021 ??? Abnormal vaginal bleeding 05/01/2020 ? ? Finding related to ability to pass urine <Straining to void> 04/03/2020 ??? Back pain 04/03/2020 ??? Irritable bowel syndrome 04/03/2020 ??? Hyperglycemia 04/03/2020 ??? Secondary hyperparathyroidism (HCC) ??? Ovarian cyst of right side 08/10/2019 ??? Essential hypertension 06/14/2019 ??? Stage 3b chronic kidney disease (HCC) 05/19/2019 ??? History of immunosuppressive therapy 05/19/2019 ??? History of renal transplant 05/19/2019 ??? Hyperlipidemia 05/19/2019 ??? 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 Amitiza 24 MCG capsule TAKE 1 CAPSULE BY MOUTH TWICE DAILY WITH FOOD AND WATER ??? atorvastatin (LIPITOR) 40 MG tablet Take 1 tablet (40 mg total) by mouth 1 (one) time each day 90 tablet 3 ??? calcitriol (ROCALTROL) 0.25 MCG capsule TAKE 1 CAPSULE BY MOUTH 3 TIMES A WEEK 36 capsule 3 ??? Farxiga 10 MG tablet TAKE 1 TABLET BY MOUTH EVERY MORNING 90 tablet 3 ??? FREESTYLE LITE test strip 1 each by Other route 1 (one) time each day ??? Jardiance 10 MG tablet Take by mouth 1 (one) time each day ??? labetalol (NORMODYNE) 200 MG tablet TAKE 1 TABLET BY MOUTH TWICE DAILY IN THE MORNING AND IN THE EVENING 60 tablet 11 ??? metFORMIN (Fortamet) 500 MG 24 hr tablet Take 1 tablet (500 mg total) by mouth 1 (one) time each day with dinner Do not crush, chew, or split. 30 tablet 11 ??? mycophenolate (MYFORTIC) 180 MG EC tablet Take 3 tablets (540 mg total) by mouth in the morningand 3 tablets (540 mg total) in the evening. 180 tablet 11 ??? NIFEdipine CC (PROCARDIA XL) 60 MG 24 hr tablet Take 1 tablet (60 mg total) by mouth 1 (one) time each day 30 tablet 11 ??? oxyCODONE (ROXICODONE) 5 MG immediate release tablet Take 5 mg by mouth 2 (two) times a day if needed ??? tacrolimus (PROGRAF) 1 MG capsule Take 6 capsules (6 mg total) by mouth in the morning and 6 capsules (6 mg total) in the evening. 360 capsule 11 ??? traZODone (DESYREL) 100 MG tablet Take 100 mg by mouth at night if needed for sleep No facility-administered encounter medications on file as of 10/16/2024. PHYSICAL EXAM: BP 100/60 Constitutional: No apparent distress Cardiovascular: No friction rub or obvious JVD elevatin Pulmonary/Chest: No rales or wheezing. Abdominal: Soft and non-tender over the allograft. Extremities: Edema None; fistula patent without redness. LABS: Chemistry Lab Units 06/16/23 0859 04/14/23 1038 04/01/23 1101 01/06/23 0958 11/13/22 0947 CREATININE MG/DL 1.3* 1.2* 1.3* 1.7* 1.3* BUN MG/DL 24* 17 24* 26* 25* POTASSIUM MMOL/L 4.6 4.6 4.7 4.8 4.3 SODIUM MMOL/L 141 141 141 143 141 CO2 MMOL/L 27 27 26 22 21* CHLORIDE MMOL/L 105 105 106 106 107 ALBUMIN GM/DL 4.6 4.4 4.4 4.5 4.6 EGFRNAFR ML/MIN/1.73 M2 49 55 47 36 47 HEMOGLOBIN A1C % -- -- -- -- 6.4* WBC AUTO K/MM3 6.2 5.1 5.9 5.2 5.8 HEMATOCRIT % 47.3* 42.2 43.8 43.9 44.3 HEMOGLOBIN GM/DL 14.9 13.3 13.8 14.0 14.0 PLATELETS AUTO K/MM3 179 189 219 178 205 Bone Mineral Lab Units 06/16/23 0859 04/14/23 1038 04/01/23 1101 01/06/23 0958 11/13/22 0947 CALCIUM MG/DL 10.1 9.9 10.0 10.3 9.7 PHOSPHORUS MG/DL 3.5 3.3 3.2 3.5 3.1 PTH PG/ML -- -- -- -- 76* VITAMIN D NG/ML -- -- -- -- 37.8 Visit Diagnoses and Active Issues: 1. History of renal transplant 2. History of immunosuppressive therapy 3. Stage 3a chronic kidney disease (HCC) 4. Hyperlipidemia, not otherwise specified SUMMARY: Based on the above findings and my interpretation of the available data and medication review, the following changes and/or recommendations for further testing, monitoring, treatment options, and follow-up are provided for your review: ASSESSMENT AND PLAN 1. Allograft function: Allograft function is excellent and stable. We will continue to monitor. 2. Immunosuppression: She is compliant with and tolerating her regimen. We will continue to monitorand adjust according to levels. 3. Blood pressure/volume status: Blood pressure is excellent and she is euvolemic. No changes were made. 4. Hematology: Things have been stable and we will continue to monitor her CBC. 5. Metabolic: No active issues. She has secondary hyperparathyroidism without actionable levels. 6. Healthcare maintenance/Other active issues: She has pain all over. There is nothing specific on her xrays except degenerative changes consistent with OA. Continue with conservative management; no NSAIDS. Orders Placed This Encounter ??? Ambulatory referral to [facility] documented in this encounter Plan of Treatment Upcoming Encounters Date Type Department Care Team (Late st Contact Info) Description 12/21/2024 1:30 PM EDT Clinical Support [facility] [place] [address] [place] [id number] Shavon Ng FNP-C [address] [place] [id number] Scheduled Referrals Name Type Priority Associated Diagnoses Orde r Schedule Ambulatory referral to Access Center Outpatient Referral Routine History of renal transplant History of immunosuppressive therapy Stage 3a chronic kidney disease (HCC) Hyperlipidemia, not otherwise specified Expected: 10/16/2024, Expires: 11/16/2025 documented as of this encounter Visit Diagnoses Diagnosis History of renal transplant- Primary History of immunosuppressive therapy Stage 3a chronic kidney disease (HCC) Hyperlipidemia, not otherwise specified documented in this encounter Care Teams Social Secretary Relationship Specialty Start Date End Date Jessica Santamaria MD [address] [place], [place] PCP - General 04/04/19 documented as of this encounter
--- OUTSIDE RECORDS SUMMARY | 2024-10-19 11:07 | XMS_ITS | Encounter Summary ---
Author Organization [facility] Address [address] [place] [address] Phone Care Team Providers Care Field Installer Name Role Phone Jessica Santamaria MD Primary Care Provider [phone] Encounter Details Date Type Department Care Team (Late Contact Info) Description 09/20/2023 Documentation Only [facility] [place], [address] [place] [address] [place], [place] [address] [place] [address] Social History Tobacco Use Types [...] Support [facility] [place] [address] [place] [address] Shavon Ng FNP-C [address] [place] [address] documented as of this encounter Visit Diagnoses Not on filedocumented in this encounter Care Teams Field Installer Relationship Specialty Start Date End Date Jessica Santamaria MD [address] [place], [place] PCP - General 04/04/19 documented as of this encounter
--- OUTSIDE RECORDS SUMMARY | 2024-10-19 11:07 | XMS_ITS | Encounter Summary ---
Author Organization [facility] Address [address] [place] [address] Phone Care Team Providers Care Consumer Affairs Manager Name Role Phone Jessica Santamaria MD Primary Care Provider [phone] Encounter Details Date Type Department Care Team (Late Contact Info) Description 06/30/2024 Documentation Only [facility] [place], [address] [place] [address] [place] [address] [place] [address] Social History Tobacco Use Types [...] Support [facility] [place] [address] [place] [address] Shavon Ng FNP-C [address] [place] [address] documented as of this encounter Visit Diagnoses Not on filedocumented in this encounter Care Teams Consumer Affairs Manager Relationship Specialty Start Date End Date Jessica Santamaria MD [address] [place], [place] PCP - General 04/04/19 documented as of this encounter
--- OUTSIDE RECORDS SUMMARY | 2024-10-19 11:07 | XMS_ITS | Encounter Summary ---
Author Organization [facility] Address [address] [place] [address] Phone Care Team Providers Care Telegraphic Service Dispatcher Name Role Phone Jessica Santamaria MD Primary Care Provider [phone] Encounter Details Date Type Department Care Team (Late Contact Info) Description 10/05/2023 Documentation Only [facility] [place], [address] [place] [address] [place] [address] [place] [address] Social History Tobacco Use Types [...] Support [facility] [place] [address] [place] [address] Shavon Ng FNP-C [address] [place] [address] documented as of this encounter Visit Diagnoses Not on filedocumented in this encounter Care Teams Telegraphic Service Dispatcher Relationship Specialty Start Date End Date Jessica Santamaria MD [address] [place], [place] PCP - General 04/04/19 documented as of this encounter
--- OUTSIDE RECORDS SUMMARY | 2024-10-19 11:07 | XMS_ITS | Encounter Summary ---
Author Organization [facility] [place], Address [address] [place] [address] Phone Care Team Providers Care Woodworking Shop Hand Name Role Phone Jessica Santamaria MD Primary Care Provider [phone] Encounter Details Date Type Department Care Team (Late Contact Info) Description 10/19/2024 Telephone [facility] [place] - [facility] [address] [place] [address] Felicity Babcock [address] [place] [address] Social History Tobacco Use Types Packs/Day [...] encounter Miscellaneous Notes * Telephone Encounter - Felicity Babcock - 10/19/2024 9:56 AM EDT MICHELLE Patton called pt on 10/17/24 to schedule office visit due to pain on fistula, Per [facility] Pt stated she would call back when she can look at her calendar. documented in this encounter Plan of Treatment Upcoming Encounters Date Type Department Care Team (Late st Contact Info) Description 12/21/2024 1:30 PM EDT Clinical Support [facility] [place] [address] [place] [phone] Shavon Ng FNP-Tanesha [address] [place] [phone] documented as of this encounter Visit Diagnoses Not on filedocumented in this encounter Care Teams Woodworking Shop Hand Relationship Specialty Start Date End Date Jessica Santamaria MD [address] [place], [place] PCP - General 04/04/19 documented as of this encounter
--- OUTSIDE RECORDS SUMMARY | 2024-10-19 11:07 | XMS_ITS | Encounter Summary ---
Author Organization [facility] Address [address] [place] [address] Phone Care Team Providers Care Manager Hotel Name Role Phone Jessica Santamaria MD Primary Care Provider [phone] Encounter Details Date Type Department Care Team (Late Contact Info) Description 04/28/2024 Documentation Only [facility] [place], [address] [place] [address] [place], [place] [address] [place] [address] Social History Tobacco Use Types [...] Support [facility] [place] [address] [place] [address] Shavon Ng FNP-C [address] [place] [address] documented as of this encounter Visit Diagnoses Not on filedocumented in this encounter Care Teams Manager Hotel Relationship Specialty Start Date End Date Jessica Santamaria MD [address] [place], [place] PCP - General 04/04/19 documented as of this encounter
--- OUTSIDE RECORDS SUMMARY | 2024-10-19 11:07 | XMS_ITS | Encounter Summary ---
Author Organization [facility] Address [address] [place] [address] Phone Care Team Providers Care Commercial Energy Rater Name Role Phone Jessica Santamaria MD Primary Care Provider Encounter Details Date Type Department Care Team (Late Contact Info) Description 08/20/2023 Documentation Only [facility] [place], [address] [place] [address] [place] [address] [place] [address] Social History Tobacco Use Types [...] Support [facility] [place] [address] [place] [address] Shavon Ng FNP-C [address] [place] [address] documented as of this encounter Visit Diagnoses Not on filedocumented in this encounter Care Teams Commercial Energy Rater Relationship Specialty Start Date End Date Jessica Santamaria MD [address] [place], [place] PCP - General 04/04/19 documented as of this encounter
--- OUTSIDE RECORDS SUMMARY | 2024-10-19 11:07 | XMS_ITS | Encounter Summary ---
Author Organization [facility] Address [address] [place] [address] Phone Care Team Providers Care Cellar Supervisor Name Role Phone Jessica Santamaria MD Primary Care Provider [phone] Encounter Details Date Type Department Care Team (Late Contact Info) Description 09/28/2023 Documentation Only [facility] [place], [address] [address] [place] [address] [place] [address] Social History Tobacco Use Types [...] Support [facility] [place] [address] [place] [address] Shavon Ng FNP-C [address] [place] [address] documented as of this encounter Visit Diagnoses Not on filedocumented in this encounter Care Teams Cellar Supervisor Relationship Specialty Start Date End Date Jessica Santamaria MD [address] [place], [place] PCP - General 04/04/19 documented as of this encounter
--- OUTSIDE RECORDS SUMMARY | 2024-10-19 11:07 | XMS_ITS | Encounter Summary ---
Author Organization [facility] Address [address] [place] [address] Phone Care Team Providers Care Soil Science Teacher Name Role Phone Jessica Santamaria MD Primary Care Provider [phone] Encounter Details Date Type Department Care Team (Late Contact Info) Description 09/18/2024 Documentation Only [facility] [place], [address] [place] [place] [address] [place] [address] [place] [address] Social History Tobacco Use Types [...] Support [facility] [place] [address] [place] [address] Shavon Ng FNP-C [address] [place] [address] documented as of this encounter Visit Diagnoses Not on filedocumented in this encounter Care Teams Soil Science Teacher Relationship Specialty Start Date End Date Jessica Santamaria MD [address] [place], [place] PCP - General 04/04/19 documented as of this encounter
--- OUTSIDE RECORDS SUMMARY | 2024-10-19 11:07 | XMS_ITS | Encounter Summary ---
Author Organization [facility] Address [address] [place] [address] Phone Care Team Providers Care Radiologic Electronic Specialist Name Role Phone Jessica Santamaria MD Primary Care Provider [phone] Encounter Details Date Type Department Care Team (Late Contact Info) Description 10/16/2024 Orders Only [facility] [place], [address] [place] [address] Caitlin Gomez [address] [place] [address] Stage 3b chronic kidney disease (HCC) (Primary Dx); Urinary tract infectious disease Social History Tobacco Use Types Packs/Day Years [...] Support [facility] [place] [address] [place] [address] Shavon Ng FNP-C [address] [place] [address] Scheduled Orders Name Type Priority Associated Diagnoses Orde r Schedule Urinalysis, Complete w/reflex to Culture Lab Routine Stage 3b chronic kidney disease (HCC) Urinary tract infectious disease Expected: 10/16/2024, Expires: 11/16/2025 documented as of this encounter Visit Diagnoses Diagnosis Stage 3b chronic kidney disease (HCC)- Primary Urinary tract infectious disease documented in this encounter Care Teams Radiologic Electronic Specialist Relationship Specialty Start Date End Date Jessica Santamaria MD [address] [place] [address] PCP - General 04/04/19 documented as of this encounter
--- OUTSIDE RECORDS SUMMARY | 2024-10-19 11:08 | XMS_ITS | Encounter Summary ---
Author Organization [facility] Address [address] [place] [address] Phone Care Team Providers Care Wire Lather Name Role Phone Jessica Santamaria MD Primary Care Provider [phone] Encounter Details Date Type Department Care Team (Late Contact Info) Description 09/18/2024 Documentation Only [facility] [place], [address] [place] [address] [place] [address] [place] [address] Social History Tobacco Use Types [...] Support [facility] [place] [address] [place] [address] Shavon Ng FNP-C [address] [place] [address] documented as of this encounter Visit Diagnoses Not on filedocumented in this encounter Care Teams Wire Lather Relationship Specialty Start Date End Date Jessica Santamaria MD [address] [place], [place] PCP - General 04/04/19 documented as of this encounter
--- OUTSIDE RECORDS SUMMARY | 2024-10-19 11:08 | XMS_ITS | Encounter Summary ---
Author Organization [facility] [place], Address [address] [address] Phone Care Team Providers Care Setter Molding And Coremaking Machines Name Role Phone Jessica Santamaria MD Primary Care Provider [phone] Reason for Visit * Reason Comments Med Refill Encounter Details Date Type Department Care Team (Late st Contact Info) Description 07/13/2022 Refill [facility] [address] [place] [address] Alvaro Stratton MD [address] [place] [address] [place] [address] Social History Tobacco Use Types [...] Clinical Support [facility] [address] [place] [address] Shavon Ng FNP-C [address] [place] [address] documented as of this encounter Visit Diagnoses Not on filedocumented in this encounter Care Teams Setter Molding And Coremaking Machines Relationship Specialty Start Date End Date Jessica Santamaria MD [address] [place], [place] PCP - General 04/04/19 documented as of this encounter
--- OUTSIDE RECORDS SUMMARY | 2024-10-19 11:08 | XMS_ITS | Encounter Summary ---
Author Organization [facility], Address [address] [place] [address] Phone Care Team Providers Care Industrial Aerial Installer Name Role Phone Jessica Santamaria MD Primary Care Provider [phone] Reason for Visit * Reason Comments Med Refill Encounter Details Date Type Department Care Team (Late st Contact Info) Description 06/23/2022 Refill [facility] [address] [place] [address] Rony Donato PA Social History Tobacco [...] [facility] Of [address] [place] [address] Shavon Ng FNP-C [address] [place] [address] [place] [address] documented as of this encounter Visit Diagnoses Not on filedocumented in this encounter Care Teams Industrial Aerial Installer Relationship Specialty Start Date End Date Jessica Santamaria MD [address] [place] [address] PCP - General 04/04/19 documented as of this encounter
--- OUTSIDE RECORDS SUMMARY | 2024-10-19 11:08 | XMS_ITS | Encounter Summary ---
Author Organization [facility], Address [address] [facility] [address] [place] [address] Phone Care Team Providers Care Bias Machine Operator Helper Name Role Phone Jessica Santamaria MD Primary Care Provider [phone] Reason for Visit * Reason Comments Med Refill Encounter Details Date Type Department Care Team (Late st Contact Info) Description 07/20/2023 Refill [facility] [address] [place] [address] Rony Donato PA Social History Tobacco [...] Support [facility] Of [address] [place] [address] Shavon Ng FNP-C [address] [place] [address] [place] [address] documented as of this encounter Visit Diagnoses Not on filedocumented in this encounter Care Teams Bias Machine Operator Helper Relationship Specialty Start Date End Date Jessica Santamaria MD [address] [place] [address] PCP - General 04/04/19 documented as of this encounter
--- OUTSIDE RECORDS SUMMARY | 2024-10-19 11:08 | XMS_ITS | Encounter Summary ---
Author Organization [facility], Address [address] [facility] [address] [place] [address] Phone Care Team Providers Care Key Punch Operator Name Role Phone Jessica Santamaria MD Primary Care Provider [phone] Reason for Visit * Reason Comments Med Refill Encounter Details Date Type Department Care Team (Late st Contact Info) Description 08/24/2022 Refill [facility] [address] [place] [address] Rony Donato PA Social History Tobacco [...] Support [facility] [address] [place] [address] Shavon Ng FNP-C [address] [facility] [place] [address] documented as of this encounter Visit Diagnoses Not on filedocumented in this encounter Care Teams Key Punch Operator Relationship Specialty Start Date End Date Jessica Santamaria MD [address] [place] [address] PCP - General 04/04/19 documented as of this encounter
--- OUTSIDE RECORDS SUMMARY | 2024-10-19 11:08 | XMS_ITS | Encounter Summary ---
Author Organization [facility] Address [address] [address] Phone Care Team Providers Care Electrical Checkout Mechanic Name Role Phone Jessica Santamaria MD Primary Care Provider [phone] Reason for Visit * Reason Comments Med Refill Encounter Details Date Type Department Care Team (Late st Contact Info) Description 04/12/2023 Refill [facility], [address] [place] [address] Alvaro Stratton MD [address] [place] [address] [place] [address] Social History Tobacco Use Types [...] Clinical Support [facility] [address] [place] [address] Shavon Ng FNP-C [address] [place] [address] documented as of this encounter Visit Diagnoses Not on filedocumented in this encounter Care Teams Electrical Checkout Mechanic Relationship Specialty Start Date End Date Jessica Santamaria MD [address] [place], [place] PCP - General 04/04/19 documented as of this encounter
--- OUTSIDE RECORDS SUMMARY | 2024-10-19 11:08 | XMS_ITS | Encounter Summary ---
Author Organization [facility] [place], Address [address] [place] [address] Phone Care Team Providers Care Director Apparel Name Role Phone Jessica Santamaria MD Primary Care Provider [phone] Reason for Visit * Reason Comments Med Refill Encounter Details Date Type Department Care Team (Late st Contact Info) Description 04/16/2022 Refill [facility] [address] [place] [address] Rony Donato PA Social History Tobacco [...] Clinical Support [facility] [address] [place] [address] Shavon Ng FNP-C [address] [place] [address] documented as of this encounter Visit Diagnoses Not on filedocumented in this encounter Care Teams Director Apparel Relationship Specialty Start Date End Date Jessica Santamaria MD [address] [place], [place] PCP - General 04/04/19 documented as of this encounter
[2024-10-19 12:14] LABS: Appearance Urine Clear; Color Urine Yellow; Glucose Urine UA >=1000 mg/dL (Negative); Leukocyte Esterase Urine Negative (Negative); Nitrite Urine Negative (Negative); PH 5.5 (5.0-9.0); Specific Gravity - Urine >= 1.030 (1.005-1.025); UMIC TRIGGER UACC YES; Urine Blood Negative (Negative); Urine Ketones Trace mg/dL (Negative); Urine Protein Negative (Neg-Trace)
[2024-10-19 12:20] LABS: Bacteria Urine None Seen (None Seen); Hyaline Casts Urine 0-2 /LPF (0-2); RBC Urine 0-2 /HPF (0-2); Squamous Epithelial Cell Urine 0-2 /HPF (0-2); WBC Urine 0-5 /HPF (0-5)
== END 2024-10-19 10:32 | disposition home or self-care (01) ==
LOC: HO.LAB 10:31
PROVIDERS: PCP Internal Medicine; Visit Provider Internal Medicine Nephrology
DX: N18.32 Chronic kidney disease, stage 3b (principal)
CPT/HCPCS: 81001; 81003

== ENCOUNTER 2025-01-23 08:25 | Outpatient (AMB) | payer OTHER, SELFPAY ==
[2025-01-23 08:28] VITALS: BP 110/78; PULSE 71; O2SAT 98; BMI 29.0
--- NOTE | 2025-01-23 08:28 | A.OFFPC_ITS ---
Vital Signs 01/23/25 08:28 Height 5 ft Weight 148 lb 6 oz BMI 29.0 BP 110/78 Blood Pressure Location Lt brachial Position Sitting Pulse 71 Pulse Source Pulse Oximeter Pulse Oximetry (%) 98 Oxygen Delivery Method Room Air Intake Visit Reasons: alyshay priya Corporate Logistics Manager Required: No Accompanied by: Self / Same As Patient Allergies amlodipine Adverse Reaction (Intermediate, Verified 01/23/25 09:01) leg edema morphine Adverse Reaction (Mild, Verified 01/23/25 09:01) Rash Medication List - Last Reconciled 01/23/25 by Jessica Dietz MD albuterol sulfate 90 mcg/actuation (Ventolin HFA) inhalation alcohol swabs (Alcohol Prep Pads) 1 pad topical BID atorvastatin 40 mg PO BEDTIME 90 days blood sugar diagnostic (FreeStyle Lite Strips) Use 1 test strip once a day blood-glucose meter (FreeStyle Lite Meter kit) As directed calcitriol mcg PO dapagliflozin propanediol (Farxiga) 10 mg PO DAILY fluticasone propionate 50 mcg/actuation 1 spray intranasal BID hydrocortisone 2.5% (Procto-Med HC) 1 appl OR BID-QID PRN labetalol 200 mg PO BID 90 days lancets (FreeStyle Lancets) Use 1 lancet once a day linagliptin (Tradjenta) 5 mg PO DAILY 90 days lubiprostone (Amitiza) 24 mcg PO DAILY mycophenolate sodium 540 mg PO BID naloxegol (Movantik) 25 mg PO QAM nifedipine ER 60 mg PO DAILY 90 days oxycodone 5 mg PO Q8H PRN 28 days sodium,potassium,mag sulfates 17.5-3.13-1.6 gram (Suprep Bowel Prep Kit) DILUTE; drink 1/2 at 6-8 pm and half at 11 PM- 1AM tacrolimus 7 mg PO Tobacco use date assessed: 01/23/25 Dental Screening Dental Screen Date: 01/23/25 Did you have a dental visit in the last 12 months?: No Did you have a dental problem in the last 6 months where you did not have access to dental care?: No Was dental information given to patient?: No HPI HPI Comments History of Present Illness Details The patient is a 59-year-old female presenting for a routine follow-up and management of chronic conditions. She has diabetes mellitus and her A1c today is 5.6%. Diabetic eye exam done in March. Last LDL was within goal being less than 70. She has noticed a decrease in weight loss. Complains of diffuse joint pain and will be referred to rheumatology. Has mild major depression but declines any treatment. She has a history of osteopenia, diagnosed following a bone density scan conducted earlier this year, with treatment involving calcium and vitamin D supplementation. Her parathyroid hormone levels are elevated, and she is currently under the care of an naval aircrewman tactical helicopter for this condition. The patient has a history of hypertension, which is currently being managed with medication. She also has a history of allergic reactions to amlodipine, which caused swelling, and morphine, which resulted in a rash. She underwent a kidney transplant and is on mycophenolate for immunosuppression. She is regularly monitored by her crystal mounter every three months for her chronic kidney disease stage 3. The patient reports constipation, for which she is taking medication. She denies smoking and alcohol use. Preventative care measures include a recent mammogram and a bone density scan, both conducted this year. She is due for a colonoscopy, as the last one was performed in 2022. [facility] Medical History (Updated 01/23/25 @ 09:21 by Jessica Dietz MD) Malnutrition Diabetes mellitus Right ankle pain Left ankle pain Fatigue Hair loss Back pain Pancreatic lesion Pneumonia due to COVID-19 virus Essential hypertension Surgical History History of esophagogastroduodenoscopy (EGD) Hx of colonoscopy Kidney transplant recipient AV fistula Kidney transplant status History of tubal ligation History of foot surgery History of lipoma History of benign breast tumor Family History Father CVD (cardiovascular disease) Prostate cancer Mother No problems noted. Social History Household Members: Children Housing: Apartment Alcohol intake: never Patient Tobacco Use Status: Former Tobacco user Tobacco use type: Cigarette e-Cigarette/Vaping Use: Never Used Second Hand Smoke Exposure: No service: No Current occupational status: unemployed Cognitive needs: No Hearing needs: No Vision needs: Yes Questionnaire PHQ-9 Over the last 2 weeks, how often have you been bothered by any of the following problems? 1. Little interest or pleasure in doing things: several days 2. Feeling down, depressed, or hopeless: several days 3. Trouble falling or staying asleep, or sleeping too much: nearly every day 4. Feeling tired or having little energy: nearly every day 5. Poor appetite or overeating: more than half the days 6. Feeling bad about yourself - or that you are a failure or have let yourself or your family down: not at all 7. Trouble concentrating on things, such as reading the newspaper or watching television: more than half the days 8. Moving or speaking so slowly that other people could have noticed. Or the opposite - being so fidgety or restless that you have been moving around a lot more than usual: several days 9. Thoughts that you would be better off or of hurting yourself in some way: not at all Total score: 13 Depression Screening Interpretation: Positive Depression Screening Follow-up: Existing condition, Follow-up Visit Requested and Declines treatment Depression Screening Done: Yes 44821 - PHQ-9 Billing: Yes Source: Developed by Drs. Tereso Jones, Marilyn Cedeno, Homer Huston and colleagues, with an educational catrina from [employer]. Thrive Questionnaire Date Thrive assessed: 01/23/25 I am a: Patient What is your living situation today?: I have a steady place to live Within the past 12 months, did the food you bought not last and you didn't have the money to get more?: Sometimes True Within the past 12 months, did you worry whether your food would run out before you got money to buy more?: Often true Do you have trouble paying for medicines?: No Do you have trouble getting transportation to medical appointments?: No Do you have trouble paying your heating and electricity bill?: Yes Do you have trouble taking care of your child, family member or friend?: I choose not to answer this question Do you have trouble with day-to-day activities such as bathing, preparing meals, shopping, managing finances, etc.?: No Are you currently unemployed and looking for a job?: No Are you interested in more education?: No Please select the resources that you would like help with: Food Currently or been in a relationship where the following occur: No concerns reported THRIVE Score: 3 AUDIT C Alcohol Use Questionnaire (AUDIT-C) 1. How often do you have a drink containing alcohol?: Never 3. How often do you have six or more drinks on one occasion?: Never Total Score: 0 Score Reviewed/Action Taken: No JONNIE-7 AMB Questionnaire JONNIE-7 Date JONNIE - 7 assessed: 01/23/25 Feeling nervous, anxious, or on edge: 1 = Several days Not being able to stop or control worryin = Several days Worrying too much about different things: 2 = More than half the days Trouble relaxin = Not at all Being so restless that it is hard to sit still: 1 = Several days Becoming easily annoyed or irritable: 1 = Several days Feeling afraid as if something awful might happen: 1 = Several days Total JONNIE-7 score (0-4 normal; 5-9 mild; 10-14 moderate; 15-21 severe): 7 Source: Developed by Drs. Tereso Jones, Marilyn Cedeno, Homer Huston and colleagues, with an educational catrina from [employer]. JONNIE-7 Assessment Billing JONNIE-7 Assessment Tool: JONNIE-7 Assessment 12712 Review of Systems Const All systems reviewed & are unremarkable except as noted in HPI and below Card Denies chest pain at rest, Denies chest pain with activity, Denies edema, Denies irregular heart rhythm, Denies claudication, Denies dyspnea, Denies dyspnea on exertion, Denies orthopnea, Denies paroxysmal nocturnal dyspnea and Denies slow heart rate Resp Denies cough, Denies dyspnea and Denies dyspnea on exertion GI Denies abdominal pain, Denies change in bowel habits, Denies excessive flatus, Denies nausea and Denies vomiting Physical exam (Primary Care) Vital Signs: Last Vital Signs Pulse 71 01/23/25 08:28 BP 110/78 01/23/25 08:28 Pulse Ox 98 01/23/25 08:28 Oxygen Delivery Method Room Air 01/23/25 08:28 BMI result Body Mass Index 29.0 Tobacco/Smoking Status: Tobacco use Status Tobacco use date assessed 01/23/25 01/23/25 08:30 Patient Tobacco Use Status Former Tobacco user 01/23/25 08:30 Tobacco use type Cigarette 01/23/25 08:30 e-Cigarette/Vaping Use Never Used 01/23/25 08:30 PHQ-9: PHQ-9 Score PHQ-9: Total score 13 01/23/25 09:07 Depression Screening Interpretation: Positive Depression Screening Follow-up: Existing condition, Follow-up Visit Requested and Declines treatment Thrive Assessment: Date of Thrive Assessment Date Thrive assessed 01/23/25 01/23/25 08:30 Currently or been in a relationship where the following occur: No concerns reported Resp Effort & Inspection: normal respiratory effort Auscultation: clear to auscultation bilaterally Cardio Jugular venous distension: no JVD Rate: regular rate Rhythm: regular rhythm Heart sounds: S1 normal heart sound present and S2 normal heart sound present Extrem General: Yes full ROM Results AMB Hemoglobin A1c AMB Hemoglobin A1c 5.7 % Last Edit by RENEA Abreu on 01/23/25 09 :17 Coding Level of Care Code Est Pt Level 4 (12033) Complex EM visit Add On G2211 Diagnoses Essential hypertension I10 Hyperlipidemia LDL goal <70 E78.5 Type 2 diabetes mellitus with hyperglycemia, without long-term current use of insulin E11.65 Diabetes mellitus complication status: with hyperglycemia Diabetes mellitus long-term insulin use: without engine head repairer use Diabetes mellitus type: type 2 Secondary hyperparathyroidism N25.81 Weight loss R63.4 Stage 3b chronic kidney disease N18.32 Chronic kidney disease stage 3 subtype: stage 3b (GFR 30-44) Polyarthralgia M25.50 Mild recurrent major depression F33.0 Additional Codes JONNIE-7 Assessment Billing - JONNIE-7 Assessment Tool: JONNIE-7 Assessment 07289 ([id number]) PHQ-9 - 28049 - PHQ-9 Billing: Yes ([id number]) Time Spent (min) 24 Assessment & Plan Assessment & Plan (1) Essential hypertension: Code(s): I10 - Essential (primary) hypertension Category: Medical (2) Hyperlipidemia LDL goal <70: Code(s): E78.5 - Hyperlipidemia, unspecified Category: Medical (3) Diabetes mellitus: Code(s): E11.9 - Type 2 diabetes mellitus without complications Category: Medical Qualifiers: Diabetes mellitus complication status: with hyperglycemia Diabetes mellitus long-term insulin use: without long-term use Diabetes mellitus type: type 2 Qualified Code(s): E11.65 - Type 2 diabetes mellitus with hyperglycemia (4) Secondary hyperparathyroidism: Code(s): N25.81 - Secondary hyperparathyroidism of renal origin Category: Medical (5) Weight loss: Code(s): R63.4 - Abnormal weight loss Category: Medical (6) CKD (chronic kidney disease) stage 3, GFR 30-59 ml/min: Code(s): N18.30 - Chronic kidney disease, stage 3 unspecified Category: Medical Qualifiers: Chronic kidney disease stage 3 subtype: stage 3b (GFR 30-44) Qualified Code(s): N18.32 - Chronic kidney disease, stage 3b (7) Polyarthralgia: Code(s): M25.50 - Pain in unspecified joint Category: Medical (8) Mild recurrent major depression: Code(s): F33.0 - Major depressive disorder, recurrent, mild Category: Medical Plan Plan Patient was informed and verbally consented to the use of an ambient scribe for clinic note documentation during this visit. 1. Other specified disorders of bone density and structure, unspecified site M85.80 The patient has been diagnosed with osteopenia following a bone density scan conducted earlier this year. The treatment plan includes supplementation with calcium and vitamin D. 2. Essential (primary) hypertension I10 The patient's hypertension is being managed with medication, and her blood pressure is reported to be stable. 3. Kidney transplant status Z94.0 The patient is post-kidney transplant and is currently on mycophenolate for immunosuppression. She is under regular follow-up with her crystal mounter every three months. 4. Other specified abnormal findings of blood chemistry R79.89 The patient has elevated parathyroid hormone levels and is under the care of an naval aircrewman tactical helicopter. 5. Constipation, unspecified K59.00 The patient reports constipation and is currently taking medication to manage this condition. 6. Type 2 diabetes mellitus without complications E11.9 HCC 19 7. Chronic kidney disease, stage 3a N18.31 HCC 138 Orders: Orders AMB Hemoglobin A1c Today Z13.9 - Encounter for screening, unspecified Lipid Panel Today E78.5 - Hyperlipidemia, unspecified Phosphorus Today N25.81 - Secondary hyperparathyroidism of renal origin Complete Blood Count Auto Diff Today D64.9 - Anemia, unspecified Vitamin B12 and Folate Today E53.8 - Deficiency of other specified B group vitamins Vitamin D 25-OH Total Today E55.9 - Vitamin D deficiency, unspecified IRON PROFILE Today D64.9 - Anemia, unspecified HIV Ab/Ag Today Z11.4 - Encounter for screening for human immunodeficiency virus [HIV] Comprehensive [place]. Panel Fast Today E11.65 - Type 2 diabetes mellitus with hyperglycemia Thyroid Stimulating Hormone Today R63.4 - Abnormal weight loss Referrals Rheumatology Referral M25.50 - Pain in unspecified joint Medications: New sulfamethoxazole-trimethoprim 800-160 mg (Bactrim DS) 1 tab PO BID 20 tabs 0RF 10 days
--- OUTSIDE RECORDS SUMMARY | 2025-01-23 08:37 | XMS_ITS | Encounter Summary ---
Author Organization [facility] Address [address] [place] [address] Phone Care Team Providers Care Software Qa Manager Name Role Phone Jessica Santamaria MD Primary Care Provider [phone] Encounter Details Date Type Department Care Team (Late st Contact Info) Description 06/30/2024 Documentation Only [facility] [address] [place] [address] [place] [address] [place] [address] Social History Tobacco Use Types [...] Care Team (Late st Contact Info) Description 01/23/2025 11:15 AM EDT Office Visit [facility] [address] [place] [address] Damian Norris MD [address] [place] [address] [place] [phone] 01/30/2025 10:30 AM EDT Office Visit [facility] [place] [address] [place] [place] [address] 02/08/2025 4:15 PM EDT Clinical Support [facility] [place] [address] [place] [address] Shavon Ng, DIRECTOR CORPORATE COMMUNICATIONS-C [address] [place] [address] documented as of this encounter Visit Diagnoses Not on filedocumented in this encounter Care Teams Software Qa Manager Relationship Specialty Start Date End Date Jessica Santamaria MD [address] [place], [place] PCP - General 04/04/19 documented as of this encounter
--- OUTSIDE RECORDS SUMMARY | 2025-01-23 08:37 | XMS_ITS | Encounter Summary ---
Author Organization [facility] Address [address] [place] [address] Phone Care Team Providers Care Portable Trackman Name Role Phone Jessica Santamaria MD Primary Care Provider [phone] Encounter Details Date Type Department Care Team (Late st Contact Info) Description 09/18/2024 Documentation Only [facility] [address] [place] [place] [address] [place] [address] [place] [address] Social History Tobacco Use Types [...] Visit [facility] [address] [place] [address] Damian Norris MD [address] [place] [address] [place] [address] 01/30/2025 10:30 AM EDT Office Visit [facility] [place] [address] [place] [address] 02/08/2025 4:15 PM EDT Clinical Support [facility] [place] [address] [place] [phone] Shavon Ng, ENGRAVER TENDER-C [address] [place] [address] documented as of this encounter Visit Diagnoses Not on filedocumented in this encounter Care Teams Portable Trackman Relationship Specialty Start Date End Date Jessica Santamaria MD [address] [place], [place] PCP - General 04/04/19 documented as of this encounter
--- OUTSIDE RECORDS SUMMARY | 2025-01-23 08:38 | XMS_ITS | Encounter Summary ---
Author Organization [facility] Address [address] [place] [address] Phone Care Team Providers Care Coal Deliverer Name Role Phone Jessica Santamaria MD Primary Care Provider [phone] Encounter Details Date Type Department Care Team (Late st Contact Info) Description 09/15/2024 Telephone [facility] [address] [place] [address] Karyn Ross Social History Tobacco [...] tender and painful. Please return the call [phone] - thank you documented in this encounter Plan of Treatment Upcoming Encounters Date Type Department Care Team (Late st Contact Info) Description 01/23/2025 11:15 AM EDT Office Visit [facility] [address] [place] [address] Damian Norris MD [address] [place] [phone] 01/30/2025 10:30 AM EDT Office Visit [facility] [place] [address] [place] [place] [phone] 02/08/2025 4:15 PM EDT Clinical Support [facility] [place] [address] [place] [phone] Shavon Ng, PLANNING INTERN-C [address] [place] [address] documented as of this encounter Visit Diagnoses Not on filedocumented in this encounter Care Teams Coal Deliverer Relationship Specialty Start Date End Date Jessica Santamaria MD [address] [place] [address] PCP - General 04/04/19 documented as of this encounter
--- OUTSIDE RECORDS SUMMARY | 2025-01-23 08:38 | XMS_ITS | Encounter Summary ---
Author Organization [facility], Address [address] [place] [address] Phone Care Team Providers Care Clerk General Name Role Phone Jessica Santamaria MD Primary Care Provider Reason for Visit * Reason Comments Med Refill Encounter Details Date Type Department Care Team (Late st Contact Info) Description 06/23/2021 Refill [facility] [address] [place] [address] Rony Donato PA [address] [place] [address] Social History Tobacco Use Types Packs/Day Years [...] Visit [facility], - V[facility] Access Center [address] [place] [address] Damian Norris MD [facility] [place] [address] 01/30/2025 10:30 AM EDT Office Visit [facility] - [facility] Center [address] [place] [address] 02/08/2025 4:15 PM EDT Clinical Support [facility] [address] [place] [address] Shavon gN, HYDRANT SETTER-C [address] [place] [place] [address] documented as of this encounter Visit Diagnoses Not on filedocumented in this encounter Care Teams Clerk General Relationship Specialty Start Date End Date Jessica Santamaria MD [address] [place] [address] PCP - General 04/04/19 documented as of this encounter
--- OUTSIDE RECORDS SUMMARY | 2025-01-23 08:38 | XMS_ITS | Encounter Summary ---
Author Organization [facility] [place], Address [address] [place] [address] Phone Care Team Providers Care Chemical Worker Name Role Phone Jessica Santamaria MD Primary Care Provider [phone] Reason for Visit * Reason Comments Med Refill Encounter Details Date Type Department Care Team (Late st Contact Info) Description 04/16/2022 Refill [facility] [address] [place] [address] Rony Donato PA [address] [place] [address] Social History Tobacco Use Types Packs/Day Years [...] Office Visit [facility], - Vascular Access Center [address] [place] [address] Damian Norris MD [address] [place] [address] 01/30/2025 10:30 AM EDT Office Visit [facility] [place] - V[facility] Access Center [address] [place] [address] 02/08/2025 4:15 PM EDT Clinical Support [facility] [place] [address] [place] [address] Shavon Ng, REHAB RN-C [address] [place] [address] documented as of this encounter Visit Diagnoses Not on filedocumented in this encounter Care Teams Chemical Worker Relationship Specialty Start Date End Date Jessica Santamaria MD [address] [place] [address] PCP - General 04/04/19 documented as of this encounter
--- OUTSIDE RECORDS SUMMARY | 2025-01-23 08:38 | XMS_ITS | Encounter Summary ---
Author Organization [facility] Address [address] [place] [address] Phone Care Team Providers Care Home Health Care Coordinator Name Role Phone Jessica Santamaria MD Primary Care Provider Encounter Details Date Type Department Care Team (Late st Contact Info) Description 09/28/2023 Documentation Only [facility] [address] [place] [address] [place], [place] [address] [place] [address] Social History Tobacco Use Types [...] Visit [facility] Vascular Access Center [address] [place] [address] Damian Norris MD [address] [place] [address] [place] [address] 01/30/2025 10:30 AM EDT Office Visit [facility] [place] - Vascular Access Center [address] [place] [address] 02/08/2025 4:15 PM EDT Clinical Support [facility] [place] [address] [place] [address] Shavon Ng, MECHANICAL SHOVEL OPERATOR-C [address] [place] [address] documented as of this encounter Visit Diagnoses Not on filedocumented in this encounter Care Teams Home Health Care Coordinator Relationship Specialty Start Date End Date Jessica Santamaria MD [address] [place], [place] PCP - General 04/04/19 documented as of this encounter
--- OUTSIDE RECORDS SUMMARY | 2025-01-23 08:38 | XMS_ITS | Encounter Summary ---
Author Organization [facility] Address [address] [place] [address] Phone Care Team Providers Care Director Of Assessing Name Role Phone Jessica Santamaria MD Primary Care Provider [phone] Encounter Details Date Type Department Care Team (Late st Contact Info) Description 06/30/2024 Documentation Only [facility] [address] [place] [address] [place], [place] [address] [place] [address] Social History Tobacco Use Types [...] Visit [facility] Vascular Access Center [address] [place] [address] Damian Norris MD [address] [place] [address] [place] [phone] 01/30/2025 10:30 AM EDT Office Visit [facility] [place] - Vascular Access Center [address] [place] [address] 02/08/2025 4:15 PM EDT Clinical Support [facility] [place] [address] [place] [address] Shavon Ng, FABRIC LAY OUT WORKER-C [address] [place] [address] documented as of this encounter Visit Diagnoses Not on filedocumented in this encounter Care Teams Director Of Assessing Relationship Specialty Start Date End Date Jessica Santamaria MD [address] [place], [place] PCP - General 04/04/19 documented as of this encounter
--- OUTSIDE RECORDS SUMMARY | 2025-01-23 08:38 | XMS_ITS | Clinical Summary ---
Author Organization [facility] [place], Address [address] [place] [address] [place] [address] Phone Care Team Providers Care Fork Assembler Name Role Phone Jessica Santamaria MD Primary Care Provider [phone] Allergies Active Allergy Reactions Criticality Noted Date Comments Adhesive Tape Other (see comments) Low 05/19/2019 Pt unsure Diphenhydramine Itching 05/19/2019 Had itching but unsure if it was from the diphenhydramine. She doesn't take it anymore. Hydralazine Other (see comments) 09/02/2018 Pt unsure Latex Itching 05/19/2019 Levofloxacin 08/16/2020 Pt unsure Morphine Rash High 10/29/2023 Pollen Extract 01/15/2025 Medications Amitiza 24 MCG capsule TAKE 1 CAPSULE BY MOUTH TWICE DAILY WITH FOOD AND WATER 02/20/20 20 Active oxyCODONE (ROXICODONE) 5 MG immediate release tablet Take 5 mg by mouth 2 (two) times a day if needed 09/07/19 21 Active NIFEdipine CC (PROCARDIA XL) 60 MG 24 hr tablet Take 1 tablet (60 mg total) by mouth 1 (one) time each day 30 tablet 11 03/12/20 21 Active labetalol (NORMODYNE) 200 MG tablet TAKE 1 TABLET BY MOUTH TWICE DAILY IN THE MORNING AND IN THE EVENING 60 tablet 11 07/13/19 23 Active atorvastatin (LIPITOR) 40 MG tablet Take 1 tablet (40 mg total) by mouth 1 (one) time each day 90 tablet 3 04/12/20 23 Active FREESTYLE LITE test strip 1 each by Other route 1 (one) time each day 08/30/19 24 Active metFORMIN (Fortamet) 500 MG 24 hr tablet Take 1 tablet (500 mg total) by mouth 1 (one) time each day with dinner Do not crush, chew, or split. 30 tablet 11 09/21/19 24 Active Farxiga 10 MG tablet TAKE 1 TABLET BY MOUTH EVERY MORNING 90 tablet 3 03/30/20 24 Active tacrolimus (PROGRAF) 1 MG capsule Take 6 capsules (6 mg total) by mouth in the morning and 6 capsules (6 mg total) in the evening. 360 capsule 11 05/09/20 24 025 Active mycophenolate (MYFORTIC) 180 MG EC tablet Take 3 tablets (540 mg total) by mouth in the morning and 3 tablets (540 mg total) in the evening. 180 tablet 11 06/02/19 25 026 Active calcitriol (ROCALTROL) 0.25 MCG capsule TAKE 1 CAPSULE BY MOUTH 3 TIMES PER WEEK 36 capsule 3 10/26/19 25 Active acetaminophen (Tylenol) 325 MG tablet Take 650 mg by mouth every 4 (four) hours if needed 03/21/20 18 Active bisacodyl (DULCOLAX) 10 MG suppository Insert 10 mg into the rectum if needed for constipation 03/21/20 18 Active Ferrous Fumarate 325 (106 Fe) MG tablet Take 325 mg by mouth 1 (one) time each day 09/15/19 20 Active fluticasone (Flonase Allergy Relief) 50 MCG/ACT nasal spray Daily, 0 Refills, Maintenance, 08/10/18 9:55:03 AM EDT 08/11/19 19 Active Tradjenta 5 MG tablet Take 1 tablet by mouth 1 (one) time each day 12/06/19 25 Active Pancrelipase, Noe-Vnys-Xndi, (CREON PO) Take by mouth in the morning and at noon and in the evening. Take with meals. 01/22/20 20 Active sodium bicarbonate 650 MG tablet Take 650 mg by mouth in the morning and 650 mg in the evening. 08/11/19 19 Active Jardiance 10 MG tablet Take by mouth 1 (one) time each day 10/04/19 24 025 Discontin ued(Med List Maintenan ce) traZODone (DESYREL) 100 MG tablet Take 100 mg by mouth at night if needed for sleep 10/04/19 24 025 Discontin ued(Med List Maintenan ce) Active Problems Problem Noted Date Diagnosed Date [...] Encounters Date Type Department Care Team Description 01/16/2025 Telephone [facility] [address] [place] [address] Antonia Jackson 01/15/2025 10:00 AM EDT Procedure visit [facility] Vascular Access [address] [place] [address] Tereso Arrieta MD End stage renal disease (HCC) (Primary Dx); Other mechanical complication of surgically created arteriovenous fistula, initial encounter (HCC) 01/15/2025 Telephone [facility] Vascular Access [address] [place] [phone] Katharnia Butt 01/12/2025 Telephone [facility] Vascular Access [address] [place] [address] Antonia Jackson 12/11/2024 Orders Only [facility] [address] [place] [address] Hiwot [place] Kidney replaced by transplant (Primary Dx); History of renal transplant; History of immunosuppressive therapy; Stage 3a chronic kidney disease (HCC); Hyperlipidemia, not otherwise specified; Type 2 diabetes mellitus without complication (HCC); Other iron deficiency anemia; Other specified hypoparathyroidism (HCC); Albuminuria, not otherwise specified 12/07/2024 Office Communication [facility] [address] [place] [address] Arleen Kingston 12/07/2024 Telephone [facility] [address] [place] [address] Hiwot [place] 11/22/2024 2:30 PM EDT Office Visit [facility] Vascular [address] [place] [address] Zhang Nazario MD Kidney replaced by transplant (Primary Dx) 11/20/2024 Telephone [facility] Vascular Access [address] [place] [address] Antonia Jackson from Last 3 Months Immunizations Immunization Administration [...] Sign Reading Time Taken Comments Blood Pressure 115/69 01/15/2025 9:49 AM EDT Pulse 68 01/15/2025 9:49 AM EDT Temperature 36.3 C (97.3 F) 01/15/2025 9:49 AM EDT Respiratory Rate 16 01/15/2025 9:49 AM EDT Oxygen Saturation 94% 01/15/2025 9:49 AM EDT Inhaled Oxygen Concentration - - Weight 75.3 kg (166 lb) 01/15/2025 9:49 AM EDT Height 152.4 cm (5') 01/15/2025 9:49 AM EDT Body Mass Index 32.42 01/15/2025 9:49 AM EDT Plan of Treatment Upcoming Encounters Date Type Department Care Team (Late st Contact Info) Description 01/23/2025 11:15 AM EDT Office Visit [facility] Vascular Access Center [address] [place] [address] [place] [phone] Damian Norris MD [address] [place] [phone] 01/30/2025 10:30 AM EDT Office Visit [facility] Vascular Access Center [address] [place] [phone] 02/08/2025 4:15 PM EDT Clinical Support [facility] [address] [place] [address] Shavon Ng FNP-C [address] [place] [phone] Health Maintenance Due Date Last Done Comments [...] 05/13/2022, Additional history exists Influenza Vaccine (#1) 2025 0, 04/06/2019, 06/02/2018, Additional history exists Procedures [...] AM EDT) Hemoglobin A1C 6.4(H) (4.0-5.6) % [facility] Comment: MONITORING: In known diabetic patients, hemoglobin A1c targets should be discussed with health care provider. DIAGNOSTIC USE: The [place] Diabetes Association (ADA) and the World Health [...] Supplement 1 Testing performed or reported by [facility], a Service of [facility], [address] [place] [address] Tate Pham MD, Fish Farmer [facility]# [id number] Blood specimen (specimen) Venous blood / Unknown 11/13/2022 9:47 AM EDT 11/13/2022 9:48 AM EDT Rony MEHTA LAB BLOOD ORDERABLES Final Re sult [facility] from Last 3 Months or Most Recently Relevant to Health Maintenance Insurance [facility] Medicaid Care Teams Fork Assembler Relationship Specialty Start Date End Date Jessica Santamaria MD [address] [place], [place] PCP - General 04/04/19
--- OUTSIDE RECORDS SUMMARY | 2025-01-23 08:38 | XMS_ITS | Encounter Summary ---
Author Organization [facility] Address [address] [place] [address] Phone Care Team Providers Care Tool Or Die Drawing Checker Name Role Phone Jessica Santamaria MD Primary Care Provider [phone] Encounter Details Date Type Department Care Team (Late st Contact Info) Description 10/05/2023 Documentation Only [facility] [address] [place] [address] [place], [place] [address] [place] [address] Social History Tobacco Use Types [...] Visit [facility] Vascular Access Center [address] [place] [address] Damian Norris MD [address] [place] [address] [place] [phone] 01/30/2025 10:30 AM EDT Office Visit [facility] [place] - Vascular Access Center [address] [place] [address] 02/08/2025 4:15 PM EDT Clinical Support [facility] [place] [address] [place] [address] Shavon Ng, SHEARING SUPERVISOR-C [address] [place] [address] documented as of this encounter Visit Diagnoses Not on filedocumented in this encounter Care Teams Tool Or Die Drawing Checker Relationship Specialty Start Date End Date Jessica Santamaria MD [address] [place], [place] PCP - General 04/04/19 documented as of this encounter
--- OUTSIDE RECORDS SUMMARY | 2025-01-23 08:38 | XMS_ITS | Encounter Summary ---
Author Organization [facility] Address [address] [place] [address] Phone Care Team Providers Care Mri Technician Name Role Phone Jessica Santamaria MD Primary Care Provider Encounter Details Date Type Department Care Team (Late st Contact Info) Description 09/20/2023 Documentation Only [facility] [address] [place] [address] [place], [place] [address] [place] [address] Social History Tobacco Use Types [...] Visit [facility] Vascular Access Center [address] [place] [address] Damian Norris MD [address] [place] [address] [place] [address] 01/30/2025 10:30 AM EDT Office Visit [facility] [place] - Vascular Access Center [address] [place] [address] 02/08/2025 4:15 PM EDT Clinical Support [facility] [place] [address] [place] [phone] Shavon Ng, ASSISTANT CITY ATTORNEY-C [address] [place] [address] documented as of this encounter Visit Diagnoses Not on filedocumented in this encounter Care Teams Mri Technician Relationship Specialty Start Date End Date Jessica Santamaria MD [address] [place], [place] PCP - General 04/04/19 documented as of this encounter
--- OUTSIDE RECORDS SUMMARY | 2025-01-23 08:38 | XMS_ITS | Encounter Summary ---
Author Organization [facility] Address [address] [place] [address] Phone Care Team Providers Care Clay Preparation Supervisor Name Role Phone Jessica Santamaria MD Primary Care Provider [phone] Encounter Details Date Type Department Care Team (Late st Contact Info) Description 02/16/2024 Documentation Only [facility] [address] [place] [address] [place], [place] [address] [place] [address] Social History Tobacco Use Types [...] Visit [facility] Vascular Access Center [address] [place] [address] Damian Norris MD [address] [place] [address] [place] [address] 01/30/2025 10:30 AM EDT Office Visit [facility] [place] - Vascular Access Center [address] [place] [address] 02/08/2025 4:15 PM EDT Clinical Support [facility] [place] [address] [place] [address] Shavon Ng, JAVA SQL DEVELOPER-C [address] [place] [address] documented as of this encounter Visit Diagnoses Not on filedocumented in this encounter Care Teams Clay Preparation Supervisor Relationship Specialty Start Date End Date Jessica Santamaria MD [address] [place], [place] PCP - General 04/04/19 documented as of this encounter
--- OUTSIDE RECORDS SUMMARY | 2025-01-23 08:38 | XMS_ITS | Encounter Summary ---
Author Organization [facility] [place], Address [address] [address] Phone Care Team Providers Care Food Specialist Name Role Phone Jessica Santamaria MD Primary Care Provider [phone] Reason for Visit * Reason Comments Med Refill Encounter Details Date Type Department Care Team (Late st Contact Info) Description 07/13/2022 Refill [facility] [address] [place] [address] Alvaro Stratton MD [address] [place] [address] [place] [address] Social History Tobacco Use Types [...] Visit [facility] [place], - Vascular Access Center [address] [place] [place] [address] Damian Norris MD [address] [place] [address] 01/30/2025 10:30 AM EDT Office Visit [facility] [place] - Vascular Access Center [address] [place] [address] 02/08/2025 4:15 PM EDT Clinical Support [facility] [place] [address] [place] [address] Shavon Ng, DENTAL APPLIANCE FIXER-C [address] [place] [address] documented as of this encounter Visit Diagnoses Not on filedocumented in this encounter Care Teams Food Specialist Relationship Specialty Start Date End Date Jessica Santamaria MD [address] [place] [address] PCP - General 04/04/19 documented as of this encounter
--- OUTSIDE RECORDS SUMMARY | 2025-01-23 08:38 | XMS_ITS | Encounter Summary ---
Author Organization [facility] [place], Address [address] [place] [address] Phone Care Team Providers Care Proposal Consultant Name Role Phone Jessica Santamaria MD Primary Care Provider [phone] Reason for Visit * Reason Comments Med Refill Encounter Details Date Type Department Care Team (Late st Contact Info) Description 07/20/2023 Refill [facility] [place] [address] [place] [address] Rony Donato PA [address] [address] Social History Tobacco Use Types Packs/Day Years [...] Visit [facility] [place], - Vascular Access Center [address] [place] [address] Damian Norris MD [address] [place] [address] [place] [address] 01/30/2025 10:30 AM EDT Office Visit [facility] [place] - Vascular Access Center [address] [place] [address] 02/08/2025 4:15 PM EDT Clinical Support [facility] [address] [place] [address] Shavon Ng, WOODWIND INSTRUMENTS INSPECTOR-C [address] [place] [address] documented as of this encounter Visit Diagnoses Not on filedocumented in this encounter Care Teams Proposal Consultant Relationship Specialty Start Date End Date Jessica Santamaria MD [address] [place] [address] PCP - General 04/04/19 documented as of this encounter
--- OUTSIDE RECORDS SUMMARY | 2025-01-23 08:38 | XMS_ITS | Encounter Summary ---
Author Organization [facility] Address [address] [place] [address] Phone Care Team Providers Care Hospital Unit Clerk Name Role Phone Jessica Santamaria MD Primary Care Provider [phone] Encounter Details Date Type Department Care Team (Late st Contact Info) Description 09/27/2024 Documentation Only [facility] [address] [place] [address] [place], [place] [address] [place] [address] Social History Tobacco Use Types [...] Visit [facility] Vascular Access Center [address] [place] [address] Damian Norris MD [address] [place] [address] [place] [address] 01/30/2025 10:30 AM EDT Office Visit [facility] [place] - Vascular Access Center [address] [place] [address] 02/08/2025 4:15 PM EDT Clinical Support [facility] [place] [address] [place] [phone] Shavon Ng, TUBER MACHINE OPERATOR-C [address] [place] [place] [address] documented as of this encounter Visit Diagnoses Not on filedocumented in this encounter Care Teams Hospital Unit Clerk Relationship Specialty Start Date End Date Jessica Santamaria MD [address] [place], [place] PCP - General 04/04/19 documented as of this encounter
--- OUTSIDE RECORDS SUMMARY | 2025-01-23 08:38 | XMS_ITS | Encounter Summary ---
Author Organization [facility] Address [address] [place] [address] Phone Care Team Providers Care Aoc Operations Intelligence Chief Name Role Phone Jessica Santamaria MD Primary Care Provider [phone] Encounter Details Date Type Department Care Team (Late st Contact Info) Description 09/20/2023 Documentation Only [facility] [address] [place] [address] [place], [place] [address] [place] [address] Social History Tobacco Use Types [...] Visit [facility] [address] [place] [address] Damian Norris MD [address] [place] [address] [place] [address] 01/30/2025 10:30 AM EDT Office Visit [facility] [place] [address] [place] [address] 02/08/2025 4:15 PM EDT Clinical Support [facility] [place] [address] [place] [address] Shavon Ng, CONDUCTOR SLEEPING CAR-C [address] [place] [address] documented as of this encounter Visit Diagnoses Not on filedocumented in this encounter Care Teams Aoc Operations Intelligence Chief Relationship Specialty Start Date End Date Jessica Santamaria MD [address] [place], [place] PCP - General 04/04/19 documented as of this encounter
--- OUTSIDE RECORDS SUMMARY | 2025-01-23 08:38 | XMS_ITS | Encounter Summary ---
Author Organization [facility] Address [address] [place] [address] Phone Care Team Providers Care Curriculum Development Specialist Name Role Phone Jessica Santamaria MD Primary Care Provider [phone] Encounter Details Date Type Department Care Team (Late st Contact Info) Description 08/20/2023 Documentation Only [facility] [address] [place] [place] [address] [place], [place] [address] [place] [address] Social History Tobacco Use Types [...] Visit [facility] V[facility] Access Center [address] [place] [address] Damian Norris MD [address] [place] [address] [place] [address] 01/30/2025 10:30 AM EDT Office Visit [facility] [place] - V[facility] Access Center [address] [place] [address] 02/08/2025 4:15 PM EDT Clinical Support [facility] [place] [address] [place] [address] Shavon Ng, PROFESSIONAL VOLLEYBALL PLAYER-C [address] [place] [address] documented as of this encounter Visit Diagnoses Not on filedocumented in this encounter Care Teams Curriculum Development Specialist Relationship Specialty Start Date End Date Jessica Santamaria MD [address] [place], [place] PCP - General 04/04/19 documented as of this encounter
--- OUTSIDE RECORDS SUMMARY | 2025-01-23 08:38 | XMS_ITS | Encounter Summary ---
Author Organization [facility] [address] [address] Phone Care Team Providers Care Forging Press Lever Tender Name Role Phone Jessica Santamaria MD Primary Care Provider [phone] Reason for Visit * Reason Comments Med Refill Encounter Details Date Type Department Care Team (Late st Contact Info) Description 04/12/2023 Refill [facility] [address] [place] [address] Alvaro Stratton MD [address] [place] [address] Social History Tobacco Use Types [...] Visit [facility] Vascular Access Center [address] [place] [address] Damian Norris MD [facility] [place] [address] 01/30/2025 10:30 AM EDT Office Visit [facility] [place] - [facility] Center [address] [place] [address] 02/08/2025 4:15 PM EDT Clinical Support [facility] [place] [address] [place] [address] Shavon Ng, ROLLER SKATE REPAIRER-C [address] [place] [address] documented as of this encounter Visit Diagnoses Not on filedocumented in this encounter Care Teams Forging Press Lever Tender Relationship Specialty Start Date End Date Jessica Santamaria MD [address] [place] [address] PCP - General 04/04/19 documented as of this encounter
--- OUTSIDE RECORDS SUMMARY | 2025-01-23 08:38 | XMS_ITS | Encounter Summary ---
Author Organization [facility] [place], Address [address] [place] [address] Phone Care Team Providers Care Chef Broiler Or Fry Name Role Phone Jessica Santamaria MD Primary Care Provider [phone] Reason for Visit * Reason Comments Med Refill Encounter Details Date Type Department Care Team (Late st Contact Info) Description 06/20/2021 Refill [facility] [place] [address] [place] [address] Rony Donato PA [address] [place] [address] Social History Tobacco Use Types Packs/Day Years [...] Visit [facility] [place], - Vascular Access Center [address] [place] [address] Damian Norris MD [facility] [place] [address] 01/30/2025 10:30 AM EDT Office Visit [facility] [place] - [facility] [address] [place] [address] 02/08/2025 4:15 PM EDT Clinical Support [facility] [place] [address] [place] [address] Shavon Ng, ALLEY WORKER-C [address] [place] [address] documented as of this encounter Visit Diagnoses Not on filedocumented in this encounter Care Teams Chef Broiler Or Fry Relationship Specialty Start Date End Date Jessica Santamaria MD [address] [place] [address] PCP - General 04/04/19 documented as of this encounter
--- OUTSIDE RECORDS SUMMARY | 2025-01-23 08:38 | XMS_ITS | Encounter Summary ---
Author Organization [facility] [place], Address [address] [place] [address] Phone Care Team Providers Care Manager Cardiovascular Name Role Phone Jessica Santamaria MD Primary Care Provider [phone] Reason for Visit * Reason Comments Med Refill Encounter Details Date Type Department Care Team (Late st Contact Info) Description 08/24/2022 Refill [facility] [place] [address] [place] [address] Rony Donato PA [address] [place] [address] Social History Tobacco Use Types Packs/Day Years [...] Visit [facility] [place], - Vascular Access Center [address] [place] [address] Damian Norris MD [facility] [place] [address] 01/30/2025 10:30 AM EDT Office Visit [facility] [place] - [facility] [address] [place] [place] [address] 02/08/2025 4:15 PM EDT Clinical Support [facility] [place] [address] [place] [address] Shavon Ng, SHIFT ENGINEER-C [address] [place] [address] documented as of this encounter Visit Diagnoses Not on filedocumented in this encounter Care Teams Manager Cardiovascular Relationship Specialty Start Date End Date Jessica Santamaria MD [address] [place] [address] PCP - General 04/04/19 documented as of this encounter
--- OUTSIDE RECORDS SUMMARY | 2025-01-23 08:38 | XMS_ITS | Encounter Summary ---
Author Organization [facility] [place], Address [address] [place] [address] Phone Care Team Providers Care Him Director Name Role Phone Jessica Santamaria MD Primary Care Provider [phone] Reason for Visit * Reason Comments Med Refill Encounter Details Date Type Department Care Team (Late st Contact Info) Description 06/11/2021 Refill [facility] [place] [address] [place] [address] Rony Donato PA [address] [place] [address] Social History Tobacco Use Types Packs/Day Years [...] Visit [facility] [place], - Vascular Access Center [address] [place] [address] Damian Norris MD [facility] [place] [address] 01/30/2025 10:30 AM EDT Office Visit [facility] [place] - V[facility] Access Center [address] [address] 02/08/2025 4:15 PM EDT Clinical Support [facility] [place] [address] [place] [address] Shavon Ng, HOTEL MANAGER-C [address] [place] [address] documented as of this encounter Visit Diagnoses Not on filedocumented in this encounter Care Teams Him Director Relationship Specialty Start Date End Date Jessica Santamaria MD [address] [place] [address] PCP - General 04/04/19 documented as of this encounter
--- OUTSIDE RECORDS SUMMARY | 2025-01-23 08:38 | XMS_ITS | Encounter Summary ---
Author Organization [facility] Address [address] [place] [address] Phone Care Team Providers Care Childcare Aide Name Role Phone Jessica Santamaria MD Primary Care Provider [phone] Encounter Details Date Type Department Care Team (Late st Contact Info) Description 04/28/2024 Documentation Only [facility] [address] [place] [address] [place] [address] [place] [address] Social History Tobacco Use Types Packs/Day [...] Visit [facility] Vascular Access Center [address] [place] [address] Damian Norris MD [address] [place] [address] [place] [address] 01/30/2025 10:30 AM EDT Office Visit [facility] [place] - Vascular Access Center [address] [place] [address] 02/08/2025 4:15 PM EDT Clinical Support [facility] [place] [address] [place] [address] Shavon Ng, MATERIAL REQUIREMENTS WORKER-C [address] [place] [address] documented as of this encounter Visit Diagnoses Not on filedocumented in this encounter Care Teams Childcare Aide Relationship Specialty Start Date End Date Jessica Santamaria MD [address] [place], [place] PCP - General 04/04/19 documented as of this encounter
--- OUTSIDE RECORDS SUMMARY | 2025-01-23 08:38 | XMS_ITS | Encounter Summary ---
Author Organization [facility] Address [address] [place] [address] Phone Care Team Providers Care Art Handler Name Role Phone Jessica Santamaria MD Primary Care Provider [phone] Encounter Details Date Type Department Care Team (Late st Contact Info) Description 11/18/2023 Documentation Only [facility] [address] [place] [address] [place], [place] [address] [place] [address] Social History Tobacco Use Types [...] Visit [facility] Vascular Access Center [address] [place] [address] Damian Norris MD [address] [place] [address] [place] [address] 01/30/2025 10:30 AM EDT Office Visit [facility] [place] - V[facility] Access Center [address] [place] [address] 02/08/2025 4:15 PM EDT Clinical Support [facility] [place] [address] [address] Shavon Ng, SAW SHARPENER-C [address] [address] documented as of this encounter Visit Diagnoses Not on filedocumented in this encounter Care Teams Art Handler Relationship Specialty Start Date End Date Jessica Santamaria MD [address] [place], [place] PCP - General 04/04/19 documented as of this encounter
--- OUTSIDE RECORDS SUMMARY | 2025-01-23 08:38 | XMS_ITS | Encounter Summary ---
Author Organization [facility] [place], Address [address] [place] [address] Phone Care Team Providers Care Family Medicine Chair Name Role Phone Jessica Santamaria MD Primary Care Provider [phone] Reason for Visit * Reason Comments Med Refill Encounter Details Date Type Department Care Team (Late st Contact Info) Description 06/23/2022 Refill [facility] [place] [address] [place] [place] [address] Rony Donato PA [address] [place] [place] [address] Social History Tobacco Use Types Packs/Day Years [...] Visit [facility] [place], - Vascular Access Center [address] [place] [address] Damian Norris MD [address] [place] [address] [place] [address] 01/30/2025 10:30 AM EDT Office Visit [facility] [place] - V[facility] Center [address] [place] [address] 02/08/2025 4:15 PM EDT Clinical Support [facility] [place] [address] [place] [address] Shavon Ng, BRICK MAKER-C [address] [place] [address] documented as of this encounter Visit Diagnoses Not on filedocumented in this encounter Care Teams Family Medicine Chair Relationship Specialty Start Date End Date Jessica Santamaria MD [address] [place] [address] PCP - General 04/04/19 documented as of this encounter
--- OUTSIDE RECORDS SUMMARY | 2025-01-23 08:38 | XMS_ITS | Encounter Summary ---
Author Organization [facility] Address [address] [place] [address] Phone Care Team Providers Care Waste Reclaimer Name Role Phone Jessica Santamaria MD Primary Care Provider [phone] Encounter Details Date Type Department Care Team (Late st Contact Info) Description 09/18/2024 Documentation Only [facility] [address] [place] [address] [place], [place] [address] [place] [address] Social History Tobacco Use Types [...] Visit [facility] Vascular Access Center [address] [place] [address] Damian Norris MD [address] [place] [address] [place] [address] 01/30/2025 10:30 AM EDT Office Visit [facility] [place] - Vascular Access Center [address] [place] [address] 02/08/2025 4:15 PM EDT Clinical Support [facility] [place] [address] [place] [address] Shavon Ng, RESTUARANT CREW WORKER-C [address] [address] documented as of this encounter Visit Diagnoses Not on filedocumented in this encounter Care Teams Waste Reclaimer Relationship Specialty Start Date End Date Jessica Santamaria MD [address] [place], [place] PCP - General 04/04/19 documented as of this encounter
== END 2025-01-23 09:18 | disposition home or self-care (01) ==
PROVIDERS: PCP Internal Medicine; Visit Provider Internal Medicine
DX: I12.9 Hypertensive chronic kidney disease with stage 1 through stage 4 chronic kidney disease, or unspecified chronic kidney disease (principal); E11.65 Type 2 diabetes mellitus with hyperglycemia; N18.32 Chronic kidney disease, stage 3b; E78.5 Hyperlipidemia, unspecified; N25.81 Secondary hyperparathyroidism of renal origin; R63.4 Abnormal weight loss; M25.50 Pain in unspecified joint; F33.0 Major depressive disorder, recurrent, mild

== ENCOUNTER 2025-01-23 08:25 | Outpatient (REF) | payer OTHER, SELFPAY ==
[2025-01-23 09:53] LABS: MANUAL DIFF FLAG NO
[2025-01-23 10:03] LABS: Hematocrit 41.4 % (37.0-47.0); Hemoglobin 13.6 g/dl (12.0-16.0); Imm Gran Abs Auto 0.04 X10*3/uL (0.00-0.03); Imm Gran Pct Auto 0.7 % (0.0-0.4); Lymphocytes Absolute Auto 0.7 X10*3/uL (1.2-4.9); Mean Corpuscular HGB Conc 32.9 g/dl (31.0-35.0); Mean Corpuscular Hemoglobin 28.0 pg (27.0-33.0); Mean Corpuscular Volume 85.2 fL (80.0-98.0); NRBC Abs Auto 0.000 X10*3/uL (0.0-0.012); NRBC Pct Auto 0.0 /100WBC (0.0-0.2); Platelet Count 168 X10*3/uL (160-400); Red Blood Count 4.86 X10*6/uL (4.20-5.50); White Blood Count 5.7 X10*3/uL (4.8-10.8)
[2025-01-23 10:51] LABS: Parathyroid Hormone Intact 114.4 pg/mL (8.7-77.1)
[2025-01-23 11:01] LABS: Alanine Aminotransferase 24 U/L (0-31); Albumin Level 4.8 g/dL (3.5-5.0); Alkaline Phosphatase 81 U/L (39-117); Anion Gap 14 (12-20); Aspartate Amino Transferase 34 U/L (5-31); Blood Urea Nitrogen 29 mg/dL (9-16); Calcium 10.2 mg/dL (8.4-10.2); Carbon Dioxide 24 mmol/L (22-29); Chloride 109 mmol/L (96-108); Cholesterol 113 mg/dL (<200); Estimated Glomerular Filt Rate 31; HDL Cholesterol 28 mg/dL (>40); Iron 53 mcg/dL (30-160); Percent Iron Saturation 23 % (15-50); Potassium 4.9 mmol/L (3.3-5.1); Sodium 142 mmol/L (135-145); Thyroid Stimulating Hormone 4.60 uIU/mL (0.32-4.0); Total Iron Binding Capacity 234 mcg/dL (228-428); Total Protein 7.3 g/dL (6.5-8.0); Triglycerides 183 mg/dL (<150); Unsaturated Iron Binding 181 ug/dL
[2025-01-23 11:02] LABS: HIV Num 1 0.07 S/CO (0.00-0.99)
[2025-01-23 11:21] LABS: Folate 8.1 ng/mL (> or = 4.0); Vitamin B12 358 pg/mL (200-900)
[2025-01-23 11:40] LABS: Microalbum/Creatinine Ratio Ur 9.2 ug/mg cr (<30)
[2025-01-24 16:49] LABS: Calcium, Ionized 5.5 mg/dL (4.7-5.5)
== END 2025-01-23 08:26 | disposition home or self-care (01) ==
LOC: HO.LAB 08:25
PROVIDERS: PCP Internal Medicine; Visit Provider Internal Medicine
DX: Z11.4 Encounter for screening for human immunodeficiency virus [HIV] (principal); E78.5 Hyperlipidemia, unspecified; E11.65 Type 2 diabetes mellitus with hyperglycemia; E11.22 Type 2 diabetes mellitus with diabetic chronic kidney disease; I12.9 Hypertensive chronic kidney disease with stage 1 through stage 4 chronic kidney disease, or unspecified chronic kidney disease; N18.32 Chronic kidney disease, stage 3b; E53.8 Deficiency of other specified B group vitamins; D64.9 Anemia, unspecified; R63.4 Abnormal weight loss; E55.9 Vitamin D deficiency, unspecified; N25.81 Secondary hyperparathyroidism of renal origin; R80.9 Proteinuria, unspecified; M25.50 Pain in unspecified joint; F33.0 Major depressive disorder, recurrent, mild; Z79.891 Long term (current) use of opiate analgesic; Z79.899 Other long term (current) drug therapy
CPT/HCPCS: 36415; 80053; 80061; 82043; 82306; 82330; 82570; 82607; 82746; 83036; 83540; 83970; 84100; 84443; 85025; 87389; 96127; 99212

== ENCOUNTER 2025-01-24 12:10 | Outpatient (REF) | payer OTHER, SELFPAY ==
--- OUTSIDE RECORDS SUMMARY | 2025-01-23 11:15 | XMS_ITS | Encounter Summary ---
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 Hemodialysis Access Note Date: 01/23/25 Access: left arm fistula not being used for dialysis yet. Patient reports: Pain in left arm, not better after the last procedure. Kidney function is still good, Tx in 2018 There were no vitals filed for this visit. Physical Exam: Extremity: left arm Access: pulsatile access Incision: intact Distal extremity: normal Distal pulse: radial palpable . 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 If she decides to keep it may consider distal stent Notes: documented in this encounter Plan of Treatment Upcoming Encounters Date Type Department Care Team (Late st Contact Info) Description 01/30/2025 10:30 AM EDT Office Visit [facility] - Vascular Access Center [address] [place] [address] 02/08/2025 4:15 PM EDT Clinical Support [facility] [place] [address] [place] [address] Shavon Ng, COLLEGE RECRUITER-C [address] [place] [address] documented as of this encounter Visit Diagnoses Diagnosis 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
--- OUTSIDE RECORDS SUMMARY | 2025-01-25 13:09 | XMS_ITS | Clinical Summary ---
Author Organization [facility] [place], Address [address] [place] [address] [place] [address] Phone Care Team Providers Care Health Services Administrator Name Role Phone Jessica Santamaria MD Primary Care Provider [phone] Allergies Active Allergy Reactions Criticality Noted Date [...] time each day 12/06/19 25 Active Pancrelipase, Uyz-Zhnq-Eplr, (CREON PO) Take by mouth in the [...] Encounters Date Type Department Care Team Description 01/23/2025 11:15 AM EDT Office Visit [facility] Vascular Access [address] [place] [address] Damian Norris MD 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) 01/16/2025 [facility] [address] [place] [address] Antonia Jackson 01/15/2025 10:00 AM EDT Procedure visit [facility] Vascular Access [address] [place] [address] Tereso Arrieta MD End stage renal disease (HCC) (Primary Dx); Other mechanical complication of surgically created arteriovenous fistula, initial encounter (HCC) 01/15/2025 Telephone [facility] Vascular Access [address] [place] [address] Katharina Butt 01/12/2025 Telephone [facility] Vascular Access Center [address] [place] [address] [place] [address] Antonia Jakcson 12/11/2024 Orders Only [facility] Of [address] [place] [address] Hiwot Smith [place] Kidney replaced by transplant (Primary Dx); History of renal transplant; History of immunosuppressive therapy; Stage 3a chronic kidney disease (HCC); Hyperlipidemia, not otherwise specified; Type 2 diabetes mellitus without complication (HCC); Other iron deficiency anemia; Other specified hypoparathyroidism (HCC); Albuminuria, not otherwise specified 12/07/2024 Office Communication [facility] [address] [place] [address] Arleen Kingston 12/07/2024 Telephone [facility] [address] [place] [address] Hiwot Smith MA 11/22/2024 2:30 PM EDT Office Visit [facility] Vascular Access [address] [place] [address] Zhang Nazario MD Kidney replaced by transplant (Primary Dx) 11/20/2024 Telephone [facility] Vascular Access [address] [place] [address] Antonia Jackson from Last 3 Months Immunizations [...] Visit [facility] [place] - Vascular Access Center [address] [place] [address] [place] [address] 02/08/2025 4:15 PM EDT Clinical Support [facility] [place] [address] [place] [address] Shavon Ng FNP-C [address] [place] [address] Health Maintenance Due Date Last Done Comments [...] AM EDT) Hemoglobin A1C 6.4(H) (4.0-5.6) % [facility] Comment: MONITORING: In known diabetic patients, hemoglobin A1c targets should be discussed with health care provider. DIAGNOSTIC USE: The [place] Diabetes [employer] (ADA) and the World Health [...] Supplement 1 Testing performed or reported by [facility], a Service of [facility], [address] [place] [address] Tate Pham MD, Molding Process Technician [facility]# [id number] Blood specimen (specimen) Venous blood / Unknown 11/13/2022 9:47 AM EDT 11/13/2022 9:48 AM EDT Royn [facility] BLOOD ORDERABLES Final Re sult [facility] from Last 3 Months or Most Recently Relevant to Health Maintenance Insurance [facility] [place] [address] Care Teams Health Services Administrator Relationship Specialty Start Date End Date Jessica Santamaria MD [address] [place], [place] PCP - General 04/04/19
--- OUTSIDE RECORDS SUMMARY | 2025-01-25 13:09 | XMS_ITS | Encounter Summary ---
Author Organization [facility] [place], Address [address] [place] [address] Phone Care Team Providers Care Supply Chain Vice President Name Role Phone Jessica Santamaria MD Primary Care Provider [phone] Reason for Visit * Reason Comments Med Refill Encounter Details Date Type Department Care Team (Late st Contact Info) Description 06/20/2021 Refill [facility] [address] [place] [address] Rony Donato PA [address] [place] [address] [place] [phone] Social History Tobacco Use Types Packs/Day Years [...] Visit [facility] [place] [address] [place] [address] [place] [phone] 02/08/2025 4:15 PM EDT Clinical Support [facility] [address] [place] [address] Shavon Ng FNP-C [address] [place] [address] [place] [address] documented as of this encounter Visit Diagnoses Not on filedocumented in this encounter Care Teams Supply Chain Vice President Relationship Specialty Start Date End Date Jessica Santamaria MD [address] [place], [place] PCP - General 04/04/19 documented as of this encounter
--- OUTSIDE RECORDS SUMMARY | 2025-01-25 13:09 | XMS_ITS | Encounter Summary ---
Author Organization [facility] [place], Address [address] [place] [address] Phone Care Team Providers Care Building Illuminating Engineer Name Role Phone Jessica Santamaria MD Primary Care Provider [phone] Reason for Visit * Reason Comments Med Refill Encounter Details Date Type Department Care Team (Late st Contact Info) Description 06/11/2021 Refill [facility] [address] [place] [address] Rony Donato PA [address] [place] [address] [place] [phone] Social History Tobacco Use Types Packs/Day Years [...] Visit [facility] [place], - [facility] [address] [place] [address] [place] [phone] 02/08/2025 4:15 PM EDT Clinical Support [facility] [address] [place] [address] Shavon Ng FNP-C [address] [place] [address] [place] [address] documented as of this encounter Visit Diagnoses Not on filedocumented in this encounter Care Teams Building Illuminating Engineer Relationship Specialty Start Date End Date Jessica Santamaria MD [address] [place], [place] PCP - General 04/04/19 documented as of this encounter
--- OUTSIDE RECORDS SUMMARY | 2025-01-25 13:09 | XMS_ITS | Encounter Summary ---
Author Organization [facility] [place], Address [address] [place] [address] Phone Care Team Providers Care Blocker And Sewer Name Role Phone Jessica Santamaria MD Primary Care Provider [phone] Encounter Details Date Type Department Care Team (Late st Contact Info) Description 06/30/2024 Documentation Only [facility] [address] [place] [address] [place] [address] [place] [phone] Social History Tobacco Use Types Packs/Day [...] Visit [facility] [place], - [facility] [address] [place] [address] 02/08/2025 4:15 PM EDT Clinical Support [facility] [place] [address] [place] [address] Shavon Ng FNP-C [address] [place] [address] documented as of this encounter Visit Diagnoses Not on filedocumented in this encounter Care Teams Blocker And Sewer Relationship Specialty Start Date End Date Jessica Santamaria MD [address] [place], [place] PCP - General 04/04/19 documented as of this encounter
--- OUTSIDE RECORDS SUMMARY | 2025-01-25 13:09 | XMS_ITS | Encounter Summary ---
Author Organization [facility] Address [address] [address] Phone Care Team Providers Care Measurement Department Chief Clerk Name Role Phone Jessica Santamaria MD Primary Care Provider [phone] Reason for Visit * Reason Comments Med Refill Encounter Details Date Type Department Care Team (Late st Contact Info) Description 04/12/2023 Refill [facility] [address] [place] [address] Alvaro Stratton MD [address] [place] [address] [place] [address] Social History Tobacco Use Types [...] Visit [facility] V[facility] Access Center [address] [place] [address] 02/08/2025 4:15 PM EDT Clinical Support [facility] [address] [place] [address] Shavon Ng FNP-C [address] [place] [address] [place] [address] documented as of this encounter Visit Diagnoses Not on filedocumented in this encounter Care Teams Measurement Department Chief Clerk Relationship Specialty Start Date End Date Jessica Santamaria MD [address] [place], [place] PCP - General 04/04/19 documented as of this encounter
--- OUTSIDE RECORDS SUMMARY | 2025-01-25 13:09 | XMS_ITS | Encounter Summary ---
Author Organization [facility] [place], Address [address] [place] [address] Phone Care Team Providers Care Child Psychology Teacher Name Role Phone Jessica Santamaria MD Primary Care Provider [phone] Encounter Details Date Type Department Care Team (Late st Contact Info) Description 04/28/2024 Documentation Only [facility] [address] [place] [address] [place] [address] [place] [phone] Social History Tobacco Use Types Packs/Day [...] Visit [facility] [place], - [facility] [address] [place] [address] 02/08/2025 4:15 PM EDT Clinical Support [facility] [place] [address] [place] [address] Shavon Ng FNP-C [address] [place] [address] documented as of this encounter Visit Diagnoses Not on filedocumented in this encounter Care Teams Child Psychology Teacher Relationship Specialty Start Date End Date Jessica Santamaria MD [address] [place], [place] PCP - General 04/04/19 documented as of this encounter
--- OUTSIDE RECORDS SUMMARY | 2025-01-25 13:09 | XMS_ITS | Encounter Summary ---
Author Organization [facility] [place], Address [address] [place] [address] Phone Care Team Providers Care Management Scientist Name Role Phone Jessica Santamaria MD Primary Care Provider [phone] Encounter Details Date Type Department Care Team (Late st Contact Info) Description 11/18/2023 Documentation Only [facility] [address] [place] [address] [place] [address] [place] [phone] Social History Tobacco Use Types Packs/Day [...] Visit [facility] [place], - [facility] [address] [place] [place] [address] 02/08/2025 4:15 PM EDT Clinical Support [facility] [place] [address] [place] [address] Shavon Ng FNP-C [address] [place] [address] documented as of this encounter Visit Diagnoses Not on filedocumented in this encounter Care Teams Management Scientist Relationship Specialty Start Date End Date Jessica Santamaria MD [address] [place], [place] PCP - General 04/04/19 documented as of this encounter
--- OUTSIDE RECORDS SUMMARY | 2025-01-25 13:09 | XMS_ITS | Encounter Summary ---
Author Organization [facility] [place], Address [address] [place] [address] Phone Care Team Providers Care Child And Adolescent Psychologist Name Role Phone Jessica Santamaria MD Primary Care Provider [phone] Encounter Details Date Type Department Care Team (Late st Contact Info) Description 09/20/2023 Documentation Only [facility] [address] [place] [address] [place] [address] [place] [phone] Social History Tobacco Use Types Packs/Day [...] Visit [facility] [place], - [facility] [address] [place] [address] 02/08/2025 4:15 PM EDT Clinical Support [facility] [place] [address] [place] [address] Shavon Ng FNP-C [address] [place] [address] documented as of this encounter Visit Diagnoses Not on filedocumented in this encounter Care Teams Child And Adolescent Psychologist Relationship Specialty Start Date End Date Jessica Santamaria MD [address] [place], [place] PCP - General 04/04/19 documented as of this encounter
--- OUTSIDE RECORDS SUMMARY | 2025-01-25 13:09 | XMS_ITS | Encounter Summary ---
Author Organization [facility] [place], Address [address] [place] [address] Phone Care Team Providers Care Patient Liaison Name Role Phone Jessica Santamaria MD Primary Care Provider [phone] Encounter Details Date Type Department Care Team (Late st Contact Info) Description 09/20/2023 Documentation Only [facility] [address] [place] [address] [place] [address] [place] [phone] Social History Tobacco Use Types Packs/Day [...] Visit [facility] [place], - [facility] Center [address] [place] [address] 02/08/2025 4:15 PM EDT Clinical Support [facility] [place] [address] [place] [address] Shavon Ng FNP-C [address] [place] [address] documented as of this encounter Visit Diagnoses Not on filedocumented in this encounter Care Teams Patient Liaison Relationship Specialty Start Date End Date Jessica Santamaria MD [address] [place], [place] PCP - General 04/04/19 documented as of this encounter
--- OUTSIDE RECORDS SUMMARY | 2025-01-25 13:09 | XMS_ITS | Encounter Summary ---
Author Organization [facility] [place], Address [address] [place] [address] Phone Care Team Providers Care Real Estate Photographer Name Role Phone Jessica Santamaria MD Primary Care Provider [phone] Encounter Details Date Type Department Care Team (Late st Contact Info) Description 06/30/2024 Documentation Only [facility] [address] [place] [address] [place] [address] [place] [address] Social History Tobacco Use Types Packs/Day [...] Visit [facility] [place], - [facility] Center [address] [place] [address] 02/08/2025 4:15 PM EDT Clinical Support [facility] [place] [address] [place] [address] Shavon Ng FNP-C [address] [place] [address] documented as of this encounter Visit Diagnoses Not on filedocumented in this encounter Care Teams Real Estate Photographer Relationship Specialty Start Date End Date Jessica Santamaria MD [address] [place], [place] PCP - General 04/04/19 documented as of this encounter
--- OUTSIDE RECORDS SUMMARY | 2025-01-25 13:09 | XMS_ITS | Encounter Summary ---
Author Organization [facility] [place], Address [address] [place] [address] Phone Care Team Providers Care Rollway Worker Name Role Phone Jessica Santamaria MD Primary Care Provider [phone] Encounter Details Date Type Department Care Team (Late st Contact Info) Description 09/18/2024 Documentation Only [facility] [address] [place] [address] [place] [address] [place] [phone] Social History Tobacco Use Types Packs/Day [...] Visit [facility] [place], - [facility] Center [address] [place] [address] 02/08/2025 4:15 PM EDT Clinical Support [facility] [place] [address] [address] Shavon Ng FNP-C [address] [place] [address] documented as of this encounter Visit Diagnoses Not on filedocumented in this encounter Care Teams Rollway Worker Relationship Specialty Start Date End Date Jsesica Santamaria MD [address] [place], [place] PCP - General 04/04/19 documented as of this encounter
--- OUTSIDE RECORDS SUMMARY | 2025-01-25 13:09 | XMS_ITS | Encounter Summary ---
Author Organization [facility] [place], Address [address] [place] [address] Phone Care Team Providers Care Senior Chemist Name Role Phone Jessica Santamaria MD Primary Care Provider [phone] Reason for Visit * Reason Comments Med Refill Encounter Details Date Type Department Care Team (Late st Contact Info) Description 07/20/2023 Refill [facility] [address] [place] [address] Rony Donato PA [address] [place] [address] [place] [phone] Social History Tobacco Use Types Packs/Day Years [...] Visit [facility] [place], - V[facility] Access Center [address] [place] [address] [place] [address] 02/08/2025 4:15 PM EDT Clinical Support [facility] [address] [place] [address] Shavon Ng FNP-C [address] [place] [address] [place] [address] documented as of this encounter Visit Diagnoses Not on filedocumented in this encounter Care Teams Senior Chemist Relationship Specialty Start Date End Date Jessica Santamaria MD [address] [place], [place] PCP - General 04/04/19 documented as of this encounter
--- OUTSIDE RECORDS SUMMARY | 2025-01-25 13:09 | XMS_ITS | Encounter Summary ---
Author Organization [facility] [place], Address [address] [place] [address] Phone Care Team Providers Care Cupboard Builder Name Role Phone Jessica Santamaria MD Primary Care Provider [phone] Reason for Visit * Reason Comments Med Refill Encounter Details Date Type Department Care Team (Late st Contact Info) Description 08/24/2022 Refill [facility] [address] [place] [address] Rony Donato PA [address] [place] [address] [place] [phone] Social History Tobacco Use Types Packs/Day Years [...] Visit [facility] [place], - V[facility] Access Center [address] [place] [address] [place] [address] 02/08/2025 4:15 PM EDT Clinical Support [facility] [address] [place] [address] Shavon Ng FNP-C [address] [place] [address] [place] [address] documented as of this encounter Visit Diagnoses Not on filedocumented in this encounter Care Teams Cupboard Builder Relationship Specialty Start Date End Date Jessica Santamaria MD [address] [place], [place] PCP - General 04/04/19 documented as of this encounter
--- OUTSIDE RECORDS SUMMARY | 2025-01-25 13:09 | XMS_ITS | Encounter Summary ---
Author Organization [facility] [place], Address [address] [place] [address] Phone Care Team Providers Care Chemical Process Project Engineer Name Role Phone Jessica Santamaria MD Primary Care Provider [phone] Encounter Details Date Type Department Care Team (Late st Contact Info) Description 09/28/2023 Documentation Only [facility] [address] [place] [place] [address] [place] [address] [place] [phone] Social History Tobacco Use Types Packs/Day [...] Visit [facility] [place], - V[facility] Access Center [address] [place] [address] 02/08/2025 4:15 PM EDT Clinical Support [facility] [place] [address] [place] [address] Shavon Ng FNP-C [address] [place] [address] documented as of this encounter Visit Diagnoses Not on filedocumented in this encounter Care Teams Chemical Process Project Engineer Relationship Specialty Start Date End Date Jessica Santamaria MD [address] [address] [place], [place] PCP - General 04/04/19 documented as of this encounter
--- OUTSIDE RECORDS SUMMARY | 2025-01-25 13:09 | XMS_ITS | Encounter Summary ---
Author Organization [facility] [place], Address [address] [place] [address] Phone Care Team Providers Care Hand Slitter Name Role Phone Jessica Santamaria MD Primary Care Provider [phone] Reason for Visit * Reason Comments Med Refill Encounter Details Date Type Department Care Team (Late st Contact Info) Description 04/16/2022 Refill [facility] [address] [place] [address] Rony Donato PA [address] [place] [address] [place] [address] Social History Tobacco Use Types Packs/Day Years [...] Office Visit [facility], - V[facility] Access Center [address] [place] [address] [place] [address] 02/08/2025 4:15 PM EDT Clinical Support [facility] [place] [address] [place] [address] Shavon Ng FNP-Tanesha [address] [place] [address] documented as of this encounter Visit Diagnoses Not on filedocumented in this encounter Care Teams Hand Slitter Relationship Specialty Start Date End Date Jessica Santamaria MD [address] [place] [address] PCP - General 04/04/19 documented as of this encounter
--- OUTSIDE RECORDS SUMMARY | 2025-01-25 13:09 | XMS_ITS | Encounter Summary ---
Author Organization [facility] Address [address] [place] [address] Phone Care Team Providers Care Prop And Effects Designer Name Role Phone Jessica Santamaria MD Primary Care Provider Encounter Details Date Type Department Care Team (Late st Contact Info) Description 09/15/2024 Telephone [facility] [address] [place] [address] Karyn Ross Social History Tobacco [...] tender and painful. Please return the call [phone] - thank you documented in this encounter Plan of Treatment Upcoming Encounters Date Type Department Care Team (Late st Contact Info) Description 01/30/2025 10:30 AM EDT Office Visit [facility] [address] [facility] [place] [address] 02/08/2025 4:15 PM EDT Clinical Support [facility] [place] [address] [place] [address] Shavon Ng, BONDING AND COMPOSITE FABRICATOR-C [address] [place] [address] documented as of this encounter Visit Diagnoses Not on filedocumented in this encounter Care Teams Prop And Effects Designer Relationship Specialty Start Date End Date Jessica Santamaria MD [address] [place] [address] PCP - General 04/04/19 documented as of this encounter
--- OUTSIDE RECORDS SUMMARY | 2025-01-25 13:09 | XMS_ITS | Encounter Summary ---
Author Organization [facility] [place], Address [address] [place] [address] Phone Care Team Providers Care Performance Improvement Manager Name Role Phone Jessica Santamaria MD Primary Care Provider Encounter Details Date Type Department Care Team (Late st Contact Info) Description 09/27/2024 Documentation Only [facility] [address] [place] [address] [place] [address] [place] [phone] Social History Tobacco Use Types Packs/Day [...] Visit [facility] [place], - V[facility] Access Center [address] [place] [address] 02/08/2025 4:15 PM EDT Clinical Support [facility] [place] [address] [place] [address] Shavon Ng FNP-C [address] [place] [address] documented as of this encounter Visit Diagnoses Not on filedocumented in this encounter Care Teams Performance Improvement Manager Relationship Specialty Start Date End Date Jessica Santamaria MD [address] [place], [place] PCP - General 04/04/19 documented as of this encounter
--- OUTSIDE RECORDS SUMMARY | 2025-01-25 13:09 | XMS_ITS | Encounter Summary ---
Author Organization [facility] [place], Address [address] [place] [address] Phone Care Team Providers Care Manager Procurement Name Role Phone Jessica Santamaria MD Primary Care Provider [phone] Reason for Visit * Reason Comments Med Refill Encounter Details Date Type Department Care Team (Late st Contact Info) Description 06/23/2021 Refill [facility] Of [address] [place] [address] Rony Donato PA [address] [place] [address] [place] [phone] Social History Tobacco Use Types Packs/Day Years [...] Visit [facility] [place], - V[facility] Access Center [address] [place] [address] [place] [address] 02/08/2025 4:15 PM EDT Clinical Support [facility] Of [address] [place] [address] Shavon Ng FNP-C [address] [place] [address] [place] [address] documented as of this encounter Visit Diagnoses Not on filedocumented in this encounter Care Teams Manager Procurement Relationship Specialty Start Date End Date Jessica Santamaria MD [address] [place], [place] PCP - General 04/04/19 documented as of this encounter
--- OUTSIDE RECORDS SUMMARY | 2025-01-25 13:09 | XMS_ITS | Encounter Summary ---
Author Organization [facility], Address [address] [address] Phone Care Team Providers Care Director Title Name Role Phone Jessica Santamaria MD Primary Care Provider [phone] Reason for Visit * Reason Comments Med Refill Encounter Details Date Type Department Care Team (Late st Contact Info) Description 07/13/2022 Refill [facility] [address] [place] [address] Alvaro Stratton MD [address] [place] [address] [place] [address] Social History Tobacco Use Types Packs/Day Years [...] Visit [facility] - [facility] [address] [place] [address] [place] [address] 02/08/2025 4:15 PM EDT Clinical Support [facility] [place] [address] [place] [place] [address] Shavon Ng FNP-C [address] [place] [address] [place] [address] documented as of this encounter Visit Diagnoses Not on filedocumented in this encounter Care Teams Director Title Relationship Specialty Start Date End Date Jessica Santamaria MD [address] [place], [place] PCP - General 04/04/19 documented as of this encounter
--- OUTSIDE RECORDS SUMMARY | 2025-01-25 13:09 | XMS_ITS | Encounter Summary ---
Author Organization [facility] [place], Address [address] [place] [address] Phone Care Team Providers Care Back Padder Name Role Phone Jessica Santamaria MD Primary Care Provider [phone] Encounter Details Date Type Department Care Team (Late st Contact Info) Description 10/05/2023 Documentation Only [facility] [address] [place] [address] [place] [address] [place] [address] Social History Tobacco Use Types Packs/Day [...] Visit [facility] [place], - [facility] Center [address] [place] [phone] 02/08/2025 4:15 PM EDT Clinical Support [facility] [place] [address] [place] [address] Shavon Ng FNP-C [address] [address] documented as of this encounter Visit Diagnoses Not on filedocumented in this encounter Care Teams Back Padder Relationship Specialty Start Date End Date Jessica Santamaria MD [address] [place], [place] PCP - General 04/04/19 documented as of this encounter
--- OUTSIDE RECORDS SUMMARY | 2025-01-25 13:09 | XMS_ITS | Encounter Summary ---
Author Organization [facility] [place], Address [address] [place] [address] Phone Care Team Providers Care Shipping Lead Name Role Phone Jessica Santamaria MD Primary Care Provider [phone] Encounter Details Date Type Department Care Team (Late st Contact Info) Description 08/20/2023 Documentation Only [facility] [address] [place] [place] [address] [place] [address] [place] [address] Social History Tobacco Use Types Packs/Day [...] Visit [facility] [place], - V[facility] Access Center [address] [place] [address] 02/08/2025 4:15 PM EDT Clinical Support [facility] [place] [address] [place] [phone] Shavon Ng FNP-C [address] [place] [address] documented as of this encounter Visit Diagnoses Not on filedocumented in this encounter Care Teams Shipping Lead Relationship Specialty Start Date End Date Jessica Santamaria MD [address] [place], [place] PCP - General 04/04/19 documented as of this encounter
--- OUTSIDE RECORDS SUMMARY | 2025-01-25 13:09 | XMS_ITS | Encounter Summary ---
Author Organization [facility] [place], Address [address] [place] [address] Phone Care Team Providers Care Legal Associate Name Role Phone Jessica Santamaria MD Primary Care Provider [phone] Encounter Details Date Type Department Care Team (Late st Contact Info) Description 09/18/2024 Documentation Only [facility] [address] [place] [place] [address] [place] [address] [place] [address] Social History Tobacco Use Types Packs/Day [...] Visit [facility] [place], - [facility] Center [address] [place] [address] 02/08/2025 4:15 PM EDT Clinical Support [facility] [place] [address] [place] [address] Shavon Ng FNP-C [address] [place] [address] documented as of this encounter Visit Diagnoses Not on filedocumented in this encounter Care Teams Legal Associate Relationship Specialty Start Date End Date Jessica Santamaria MD [address] [place], [place] PCP - General 04/04/19 documented as of this encounter
--- OUTSIDE RECORDS SUMMARY | 2025-01-25 13:09 | XMS_ITS | Encounter Summary ---
Author Organization [facility] [place], Address [address] [place] [address] Phone Care Team Providers Care Television Picture Tube Rebuilder Name Role Phone Jessica Santamaria MD Primary Care Provider [phone] Reason for Visit * Reason Comments Med Refill Encounter Details Date Type Department Care Team (Late st Contact Info) Description 06/23/2022 Refill [facility] [address] [place] [address] Rony Donato PA [address] [place] [address] [place] [phone] Social History Tobacco Use Types Packs/Day Years [...] Visit [facility] [place], - V[facility] Access Center [address] [place] [address] [place] [address] 02/08/2025 4:15 PM EDT Clinical Support [facility] [address] [place] [phone] Shavon Ng FNP-C [address] [place] [address] [place] [address] documented as of this encounter Visit Diagnoses Not on filedocumented in this encounter Care Teams Television Picture Tube Rebuilder Relationship Specialty Start Date End Date Jessica Santamaria MD [address] [place], [place] PCP - General 04/04/19 documented as of this encounter
--- OUTSIDE RECORDS SUMMARY | 2025-01-25 13:09 | XMS_ITS | Encounter Summary ---
Author Organization [facility] [place], Address [address] [place] [address] Phone Care Team Providers Care Potato Peeling Machine Operator Name Role Phone Jessica Santamaria MD Primary Care Provider [phone] Encounter Details Date Type Department Care Team (Late st Contact Info) Description 02/16/2024 Documentation Only [facility] [address] [place] [address] [place] [address] [place] [address] Social History Tobacco Use Types Packs/Day [...] Visit [facility] [place], - Vascular Access Center [address] [place] [address] 02/08/2025 4:15 PM EDT Clinical Support [facility] [place] [address] [place] [phone] Shavon Ng FNP-C [address] [address] documented as of this encounter Visit Diagnoses Not on filedocumented in this encounter Care Teams Potato Peeling Machine Operator Relationship Specialty Start Date End Date Jessica Santamaria MD [address] [place], [place] PCP - General 04/04/19 documented as of this encounter
[2025-01-29 20:38] LABS: Calcium/Creatinine Ratio 136 mg/g creat (30-275); Creatinine 24Hr Urine 1.11 g/24 h (0.50-2.15)
== END 2025-01-24 12:11 | disposition home or self-care (01) ==
LOC: HO.LNP 12:10
PROVIDERS: Visit Provider Internal Medicine
DX: N25.81 Secondary hyperparathyroidism of renal origin (principal)
CPT/HCPCS: 82340

== ENCOUNTER 2025-02-19 11:14 | Outpatient (REF) | payer OTHER, SELFPAY ==
--- OUTSIDE RECORDS SUMMARY | 2025-02-08 16:15 | XMS_ITS | Encounter Summary ---
Author Organization [facility] [place], Address [address] [place] [address] Phone Care Team Providers Care Test Carrier Name Role Phone Jessica Santamaria MD Primary Care Provider [phone] Encounter Details Date Type Department Care Team (Latest Contact Info) Description 02/08/2025 4:15 PM EDT Clinical Support [facility] [place] [address] [place] [phone] Shavon Ng FNP-C [address] [place] [address] Essential hypertension (Primary Dx); History of renal transplant; History of immunosuppressive therapy; Stage 3a chronic kidney disease (HCC) Social History Tobacco Use Types Packs/Day Years [...] Sign Reading Time Taken Comments Blood Pressure 98/57 02/08/2025 4:36 PM EDT Pulse 68 02/08/2025 4:36 PM EDT Temperature - - Respiratory Rate - - Oxygen Saturation - - Inhaled Oxygen Concentration - - Weight 67.1 kg (148 lb) 02/08/2025 4:36 PM EDT Height - - Body Mass Index 28.9 01/15/2025 9:49 AM EDT documented in this encounter Plan of Treatment Upcoming Encounters Date Type Department Care Team (Late st Contact Info) Description 04/05/2025 2:00 PM EST Clinical Support [facility] [place] [address] [place] [address] Shavon Ng FNP-Tanesha [address] [place] [address] documented as of this encounter Visit Diagnoses Diagnosis Essential hypertension- Primary History of renal transplant History of immunosuppressive therapy Stage 3a chronic kidney disease (HCC) documented in this encounter Care Teams Test Carrier Relationship Specialty Start Date End Date Jessica Santamaria MD [address] [address] [place] [address] PCP - General 04/04/19 documented as of this encounter
[2025-02-19 11:45] LABS: MANUAL DIFF FLAG NO
[2025-02-19 12:15] LABS: Hematocrit 38.6 % (37.0-47.0); Hemoglobin 13.1 g/dl (12.0-16.0); Imm Gran Abs Auto 0.02 X10*3/uL (0.00-0.03); Imm Gran Pct Auto 0.4 % (0.0-0.4); Lymphocytes Absolute Auto 0.9 X10*3/uL (1.2-4.9); Mean Corpuscular HGB Conc 33.9 g/dl (31.0-35.0); Mean Corpuscular Hemoglobin 28.4 pg (27.0-33.0); Mean Corpuscular Volume 83.7 fL (80.0-98.0); NRBC Abs Auto 0.000 X10*3/uL (0.0-0.012); NRBC Pct Auto 0.0 /100WBC (0.0-0.2); Platelet Count 163 X10*3/uL (160-400); Red Blood Count 4.61 X10*6/uL (4.20-5.50); White Blood Count 5.1 X10*3/uL (4.8-10.8)
[2025-02-19 12:48] LABS: Alanine Aminotransferase 21 U/L (0-31); Albumin Level 4.5 g/dL (3.5-5.0); Alkaline Phosphatase 80 U/L (39-117); Anion Gap 13 (12-20); Aspartate Amino Transferase 29 U/L (5-31); Blood Urea Nitrogen 26 mg/dL (9-16); Calcium 9.8 mg/dL (8.4-10.2); Carbon Dioxide 21 mmol/L (22-29); Chloride 110 mmol/L (96-108); Cholesterol 96 mg/dL (<200); Estimated Glomerular Filt Rate 31; HDL Cholesterol 27 mg/dL (>40); Potassium 4.2 mmol/L (3.3-5.1); Sodium 140 mmol/L (135-145); Total Protein 6.9 g/dL (6.5-8.0); Triglycerides 149 mg/dL (<150)
[2025-02-19 13:04] LABS: Thyroid Stimulating Hormone 2.19 uIU/mL (0.32-4.0)
--- OUTSIDE RECORDS SUMMARY | 2025-02-19 13:55 | XMS_ITS | Encounter Summary ---
Author Organization [facility] Address [address] [place] [address] Phone Care Team Providers Care Instructional Coach Name Role Phone Jessica Santamaria MD Primary Care Provider [phone] Encounter Details Date Type Department Care Team (Late st Contact Info) Description 09/15/2024 Telephone [facility] [address] [place] [address] Karyn Ross Social History Tobacco [...] tender and painful. Please return the call [phone] - thank you documented in this encounter Plan of Treatment Upcoming Encounters Date Type Department Care Team (Late st Contact Info) Description 04/05/2025 2:00 PM EST Clinical Support [facility] [address] [place] [address] Shavon Ng, TANK PUMPER-C [address] [place] [address] documented as of this encounter Visit Diagnoses Not on filedocumented in this encounter Care Teams Instructional Coach Relationship Specialty Start Date End Date Jessica Santamaria MD [address] [place] [address] PCP - General 04/04/19 documented as of this encounter
--- OUTSIDE RECORDS SUMMARY | 2025-02-19 13:55 | XMS_ITS | Encounter Summary ---
Author Organization [facility] [place], Address [address] [place] [address] Phone Care Team Providers Care Breast Surgeon Name Role Phone Jessica Santamaria MD Primary Care Provider [phone] Reason for Visit * Reason Onset Date Comments rpt creatinine 02/14/2025 Encounter Details Date Type Department Care Team (Late st Contact Info) Description 02/14/2025 Telephone [facility] [address] [place] [address] Zoe Vásquez RN [address] [place] [address] [place] [address] Social History Tobacco Use Types Packs/Day Years [...] Miscellaneous Notes * Telephone Encounter - Zoe Vásquez RN - 02/14/2025 5:00 PM EDT Received [...] Support [facility] [address] [place] [address] Berenice Shavon, TWENTY ONE DEALER-C [address] [place] [address] Scheduled Orders Name Type Priority Associated Diagnoses Orde r Schedule Renal function panel Lab Routine Stage 3b chronic kidney disease (HCC) History of renal transplant Expected: 02/14/2025, Expires: 03/16/2026 documented as of this encounter Visit Diagnoses Diagnosis Stage 3b chronic kidney disease (HCC)- Primary History of renal transplant documented in this encounter Care Teams Breast Surgeon Relationship Specialty Start Date End Date Jessica Santamaria MD [address] [place], [place] PCP - General 04/04/19 documented as of this encounter
--- OUTSIDE RECORDS SUMMARY | 2025-02-19 13:55 | XMS_ITS | Encounter Summary ---
Author Organization [facility] [place], Address [address] [place] [address] Phone Care Team Providers Care Grease Press Helper Name Role Phone Jessica Santamaria MD Primary Care Provider [phone] Encounter Details Date Type Department Care Team (Latest Contact Info) Description 02/14/2025 Orders Only [facility] [address] [place] [address] Zoe Vásquez, RN [address] [place] [address] History of renal transplant (Primary [...] Clinical Support [facility] [address] [place] [address] Shavon Ng FNP-C [address] [place] [address] Scheduled Orders Name Type Priority [...] (HCC) documented in this encounter Care Teams Grease Press Helper Relationship Specialty Start Date End Date Jessica Santamaria MD [address] [place] [address] PCP - General 04/04/19 documented as of this encounter
--- OUTSIDE RECORDS SUMMARY | 2025-02-19 13:55 | XMS_ITS | Encounter Summary ---
Author Organization [facility] Address [address] [place] [address] Phone Care Team Providers Care Winding Operator Name Role Phone Jessica Santamaria MD Primary Care Provider [phone] Encounter Details Date Type Department Care Team (Late Contact Info) Description 06/30/2024 Documentation Only [facility] [place], [address] [place] [address] [place], [place] [address] [place] [address] Social History Tobacco Use Types [...] Support [facility] [place] [address] [place] [address] Shavon Ng FNP-C [address] [place] [address] documented as of this encounter Visit Diagnoses Not on filedocumented in this encounter Care Teams Winding Operator Relationship Specialty Start Date End Date Jessica Santamaria MD [address] [place], [place] PCP - General 04/04/19 documented as of this encounter
--- OUTSIDE RECORDS SUMMARY | 2025-02-19 13:55 | XMS_ITS | Encounter Summary ---
Author Organization [facility] Address [address] [place] [address] Phone Care Team Providers Care Environmental Advisor Name Role Phone Jessica Santamaria MD Primary Care Provider [phone] Encounter Details Date Type Department Care Team (Late Contact Info) Description 09/27/2024 Documentation Only [facility] [place], [address] [place] [address] [place], [place] [address] [place] [address] Social History Tobacco Use Types [...] Support [facility] [place] [address] [place] [address] Shavon Ng FNP-C [address] [place] [address] documented as of this encounter Visit Diagnoses Not on filedocumented in this encounter Care Teams Environmental Advisor Relationship Specialty Start Date End Date Jessica Santamaria MD [address] [place], [place] PCP - General 04/04/19 documented as of this encounter
--- OUTSIDE RECORDS SUMMARY | 2025-02-19 13:55 | XMS_ITS | Encounter Summary ---
Author Organization [facility] Address [address] [place] [address] Phone Care Team Providers Care Supervisor Finishing Department Name Role Phone Jessica Santamaria MD Primary Care Provider [phone] Encounter Details Date Type Department Care Team (Late Contact Info) Description 01/23/2025 Documentation Only [facility] [place], [address] [place] [address] [place], [place] [address] [place] [address] Social History Tobacco Use Types [...] Support [facility] [place] [address] [place] [address] Shavon Ng FNP-C [address] [place] [address] documented as of this encounter Visit Diagnoses Not on filedocumented in this encounter Care Teams Supervisor Finishing Department Relationship Specialty Start Date End Date Jessica Santamaria MD [address] [place], [place] PCP - General 04/04/19 documented as of this encounter
--- OUTSIDE RECORDS SUMMARY | 2025-02-19 13:55 | XMS_ITS | Encounter Summary ---
Author Organization [facility] Address [address] [place] [address] Phone Care Team Providers Care Dowel Machine Operator Name Role Phone Jessica Santamaria MD Primary Care Provider Encounter Details Date Type Department Care Team (Late Contact Info) Description 09/18/2024 Documentation Only [facility] [place], [address] [place] [address] [place], [place] [address] [place] [address] Social History Tobacco Use Types [...] Support [facility] [place] [address] [place] [address] Shavon Ng FNP-C [address] [place] [address] documented as of this encounter Visit Diagnoses Not on filedocumented in this encounter Care Teams Dowel Machine Operator Relationship Specialty Start Date End Date Jessica Santamaria MD [address] [place], [place] PCP - General 04/04/19 documented as of this encounter
--- OUTSIDE RECORDS SUMMARY | 2025-02-19 13:55 | XMS_ITS | Encounter Summary ---
Author Organization [facility] Address [address] [place] [address] Phone Care Team Providers Care Switchbox Assembler Name Role Phone Jessica Santamaria MD Primary Care Provider [phone] Encounter Details Date Type Department Care Team (Late Contact Info) Description 06/30/2024 Documentation Only [facility] [place], [address] [place] [address] [place], [place] [address] [place] [address] Social [...] Support [facility] [place] [address] [place] [address] Shavon Ng FNP-C [address] [place] [place] [address] documented as of this encounter Visit Diagnoses Not on filedocumented in this encounter Care Teams Switchbox Assembler Relationship Specialty Start Date End Date Jessica Santamaria MD [address] [place], [place] PCP - General 04/04/19 documented as of this encounter
--- OUTSIDE RECORDS SUMMARY | 2025-02-19 13:56 | XMS_ITS | Encounter Summary ---
Author Organization [facility] Address [address] [place] [address] Phone Care Team Providers Care Swaging Machine Adjuster Name Role Phone Jessica Santamaria MD Primary Care Provider [phone] Encounter Details Date Type Department Care Team (Late Contact Info) Description 08/20/2023 Documentation Only [facility] [place], [address] [place] [address] [place], [place] [address] [place] [address] Social History Tobacco Use Types [...] Support [facility] [place] [address] [place] [address] Shavon Ng FNP-C [address] [place] [address] documented as of this encounter Visit Diagnoses Not on filedocumented in this encounter Care Teams Swaging Machine Adjuster Relationship Specialty Start Date End Date Jessica Santamaria MD [address] [place], [place] PCP - General 04/04/19 documented as of this encounter
--- OUTSIDE RECORDS SUMMARY | 2025-02-19 13:56 | XMS_ITS | Encounter Summary ---
Author Organization [facility] Address [address] [place] [address] Phone Care Team Providers Care Sheep Boner Name Role Phone Jessica Santamaria MD Primary Care Provider [phone] Encounter Details Date Type Department Care Team (Late Contact Info) Description 09/20/2023 Documentation Only [facility] [place], [address] [address] [place], [place] [address] [place] [address] Social History Tobacco Use Types [...] Support [facility] [place] [address] [place] [address] Shavon Ng FNP-C [address] [place] [place] [address] documented as of this encounter Visit Diagnoses Not on filedocumented in this encounter Care Teams Sheep Boner Relationship Specialty Start Date End Date Jessica Santamaria MD [address] [place], [place] PCP - General 04/04/19 documented as of this encounter
--- OUTSIDE RECORDS SUMMARY | 2025-02-19 13:56 | XMS_ITS | Encounter Summary ---
Author Organization [facility] [place], Address [address] [place] [address] Phone Care Team Providers Care Oral Pathologist Name Role Phone Jessica Santamaria MD Primary Care Provider [phone] Reason for Visit * Reason Comments Med Refill Encounter Details Date Type Department Care Team (Late st Contact Info) Description 06/23/2021 Refill [facility] [address] [place] [address] Rony Donato PA [address] [place] [address] [place] [address] Social History Tobacco Use Types [...] Support [facility] [address] [address] Shavon Ng FNP-C [address] [address] documented as of this encounter Visit Diagnoses Not on filedocumented in this encounter Care Teams Oral Pathologist Relationship Specialty Start Date End Date Jessica Santamaria MD [address] [place], [place] PCP - General 04/04/19 documented as of this encounter
--- OUTSIDE RECORDS SUMMARY | 2025-02-19 13:56 | XMS_ITS | Encounter Summary ---
Author Organization [facility] [place], Address [address] [address] Phone Care Team Providers Care Education Consultant Name Role Phone Jessica Santamaria MD Primary Care Provider [phone] Reason for Visit * Reason Comments Med Refill Encounter Details Date Type Department Care Team (Late st Contact Info) Description 07/13/2022 Refill [facility] [address] [place] [address] Alvaro Stratton MD [address] [place] [address] [place] [address] Social History Tobacco Use Types [...] Services [facility] [address] [place] [address] Shavon Ng FNP-C [address] [place] [address] documented as of this encounter Visit Diagnoses Not on filedocumented in this encounter Care Teams Education Consultant Relationship Specialty Start Date End Date Jessica Santamaria MD [address] [place], [place] PCP - General 04/04/19 documented as of this encounter
--- OUTSIDE RECORDS SUMMARY | 2025-02-19 13:56 | XMS_ITS | Encounter Summary ---
Author Organization [facility] Address [address] [place] [address] Phone Care Team Providers Care Route Delivery Manager Name Role Phone Jessica Santamaria MD Primary Care Provider [phone] Encounter Details Date Type Department Care Team (Late Contact Info) Description 02/16/2024 Documentation Only [facility] [place], [address] [place] [place] [address] [place], [place] [address] [place] [address] Social History Tobacco Use Types [...] Support [facility] [place] [address] [place] [address] Shavon Ng FNP-C [address] [place] [address] documented as of this encounter Visit Diagnoses Not on filedocumented in this encounter Care Teams Route Delivery Manager Relationship Specialty Start Date End Date Jessica Santamaria MD [address] [place], [place] PCP - General 04/04/19 documented as of this encounter
--- OUTSIDE RECORDS SUMMARY | 2025-02-19 13:56 | XMS_ITS | Encounter Summary ---
Author Organization [facility] Address [address] [place] [address] Phone Care Team Providers Care Counsel Name Role Phone Jessica Santamaria MD Primary Care Provider [phone] Encounter Details Date Type Department Care Team (Late Contact Info) Description 10/05/2023 Documentation Only [facility] [place], [address] [place] [address] [place], [place] [address] [place] [address] Social History Tobacco Use Types [...] Support [facility] [place] [address] [place] [address] Shavon Ng FNP-C [address] [place] [address] documented as of this encounter Visit Diagnoses Not on filedocumented in this encounter Care Teams Counsel Relationship Specialty Start Date End Date Jessica Santamaria MD [address] [place], [place] PCP - General 04/04/19 documented as of this encounter
--- OUTSIDE RECORDS SUMMARY | 2025-02-19 13:56 | XMS_ITS | Encounter Summary ---
Author Organization [facility] [place], Address [address] [place] [address] Phone Care Team Providers Care Harbor Engineer Name Role Phone Jessica Santamaria MD Primary Care Provider Reason for Visit * Reason Comments Med Refill Encounter Details Date Type Department Care Team (Late st Contact Info) Description 07/20/2023 Refill [facility] [address] [place] [address] Rony Donato PA [address] [place] [address] [place] [address] Social History Tobacco Use Types Packs/Day [...] Services [facility] [address] [place] [address] Shavon Ng FNP-C [address] [address] documented as of this encounter Visit Diagnoses Not on filedocumented in this encounter Care Teams Harbor Engineer Relationship Specialty Start Date End Date Jessica Santamaria MD [address] [place], [place] PCP - General 04/04/19 documented as of this encounter
--- OUTSIDE RECORDS SUMMARY | 2025-02-19 13:56 | XMS_ITS | Encounter Summary ---
Author Organization [facility] Address [address] [place] [address] Phone Care Team Providers Care Nitrating Acid Mixer Name Role Phone Jessica Santamaria MD Primary Care Provider [phone] Encounter Details Date Type Department Care Team (Late Contact Info) Description 09/28/2023 Documentation Only [facility] [place], [address] [place] [address] [place], [place] [address] [place] [address] Social History Tobacco Use Types [...] Support [facility] [place] [address] [place] [address] Shavon Ng FNP-C [address] [place] [address] documented as of this encounter Visit Diagnoses Not on filedocumented in this encounter Care Teams Nitrating Acid Mixer Relationship Specialty Start Date End Date Jessica Santamaria MD [address] [place], [place] PCP - General 04/04/19 documented as of this encounter
--- OUTSIDE RECORDS SUMMARY | 2025-02-19 13:56 | XMS_ITS | Encounter Summary ---
Author Organization [facility] [place], Address [address] [place] [address] Phone Care Team Providers Care Hot Dog Vendor Name Role Phone Jessica Santamaria MD Primary Care Provider [phone] Reason for Visit * Reason Comments Med Refill Encounter Details Date Type Department Care Team (Late st Contact Info) Description 06/20/2021 Refill [facility] [address] [place] [address] Rony Donato PA [address] [place] [address] [place] [address] Social History Tobacco Use Types [...] Transplant Services [facility] [address] [place] [address] Shavon Ng FNP-C [address] [place] [address] documented as of this encounter Visit Diagnoses Not on filedocumented in this encounter Care Teams Hot Dog Vendor Relationship Specialty Start Date End Date Jessica Santamaria MD [address] [place], [place] PCP - General 04/04/19 documented as of this encounter
--- OUTSIDE RECORDS SUMMARY | 2025-02-19 13:56 | XMS_ITS | Encounter Summary ---
Author Organization [facility] [place], Address [address] [place] [address] Phone Care Team Providers Care Supercalender Operator Name Role Phone Jessica Santamaria MD Primary Care Provider [phone] Reason for Visit * Reason Comments Med Refill Encounter Details Date Type Department Care Team (Late st Contact Info) Description 08/24/2022 Refill [facility] [address] [place] [address] Rony Donato PA [address] [place] [address] [place] [address] Social History Tobacco Use Types Packs/Day [...] Clinical Support [facility] [address] [address] Shavon Ng FNP-C [address] [address] documented as of this encounter Visit Diagnoses Not on filedocumented in this encounter Care Teams Supercalender Operator Relationship Specialty Start Date End Date Jessica Santamaria MD [address] [place], [place] PCP - General 04/04/19 documented as of this encounter
--- OUTSIDE RECORDS SUMMARY | 2025-02-19 13:56 | XMS_ITS | Encounter Summary ---
Author Organization [facility] [place], Address [address] [place] [address] Phone Care Team Providers Care Hydraulic Technician Name Role Phone Jessica Santamaria MD Primary Care Provider [phone] Reason for Visit * Reason Comments Med Refill Encounter Details Date Type Department Care Team (Late st Contact Info) Description 06/11/2021 Refill [facility] [address] [place] [address] Rony Donato PA [address] [place] [address] [place] [address] Social History Tobacco Use Types [...] Clinical Support [facility] [address] [place] [address] Shavon Ng FNP-C [address] [place] [address] documented as of this encounter Visit Diagnoses Not on filedocumented in this encounter Care Teams Hydraulic Technician Relationship Specialty Start Date End Date Jessica Santamaria MD [address] [place], [place] PCP - General 04/04/19 documented as of this encounter
--- OUTSIDE RECORDS SUMMARY | 2025-02-19 13:56 | XMS_ITS | Encounter Summary ---
Author Organization [facility] Address [address] [address] Phone Care Team Providers Care Cell Maker Name Role Phone Jessica Santamaria MD Primary Care Provider [phone] Reason for Visit * Reason Comments Med Refill Encounter Details Date Type Department Care Team (Late st Contact Info) Description 04/12/2023 Refill [facility], [address] [place] [address] Alvaro Stratton MD [address] [place] [address] Social History Tobacco Use Types [...] Support [facility] [place] [address] [place] [address] Shavon Ng FNP-C [address] [place] [address] documented as of this encounter Visit Diagnoses Not on filedocumented in this encounter Care Teams Cell Maker Relationship Specialty Start Date End Date Jessica Santamaria MD [address] [place], [place] PCP - General 04/04/19 documented as of this encounter
--- OUTSIDE RECORDS SUMMARY | 2025-02-19 13:56 | XMS_ITS | Encounter Summary ---
Author Organization [facility] [place], Address [address] [place] [address] Phone Care Team Providers Care College Admissions Counselor Name Role Phone Jessica Santamaria MD Primary Care Provider [phone] Reason for Visit * Reason Comments Med Refill Encounter Details Date Type Department Care Team (Late st Contact Info) Description 06/23/2022 Refill [facility] [address] [place] [address] Rony Donato PA [address] [place] [address] [place] [address] Social History Tobacco Use Types Packs/Day [...] Clinical Support [facility] [address] [place] [address] Shavon Ng FNP-C [address] [place] [address] documented as of this encounter Visit Diagnoses Not on filedocumented in this encounter Care Teams College Admissions Counselor Relationship Specialty Start Date End Date Jessica Santamaria MD [address] [place], [place] PCP - General 04/04/19 documented as of this encounter
--- OUTSIDE RECORDS SUMMARY | 2025-02-19 13:56 | XMS_ITS | Encounter Summary ---
Author Organization [facility] Address [address] [place] [address] Phone Care Team Providers Care Senior Clinical Data Analyst Name Role Phone Jessica Santamaria MD Primary Care Provider [phone] Encounter Details Date Type Department Care Team (Late Contact Info) Description 11/18/2023 Documentation Only [facility] [place], [address] [place] [address] [place], [place] [address] [place] [address] Social History Tobacco Use Types [...] Support [facility] [place] [address] [place] [address] Shavon Ng FNP-C [address] [place] [address] documented as of this encounter Visit Diagnoses Not on filedocumented in this encounter Care Teams Senior Clinical Data Analyst Relationship Specialty Start Date End Date Jessica Santamaria MD [address] [place], [place] PCP - General 04/04/19 documented as of this encounter
--- OUTSIDE RECORDS SUMMARY | 2025-02-19 13:56 | XMS_ITS | Clinical Summary ---
Author Organization [facility] [place], Address [address] [place] [address] [place] [address] Phone Care Team Providers Care Interior Decorator Name Role Phone Jessica Santamaria MD Primary Care Provider [phone] Allergies Active Allergy Reactions Criticality Noted Date [...] (one) time each day 12/06/19 Active Pancrelipase, Gir-[id number], (CREON PO) Take by mouth in the [...] Orders Only [facility] [address] [place] [address] Zoe Vásquez, RN History of renal transplant (Primary Dx); History of immunosuppressive therapy; Stage 3b chronic kidney disease (HCC) 02/14/2025 Telephone [facility] [place] [address] [place] [address] Zoe Vásquez, RN 02/09/2025 Telephone [facility] [address] [place] [address] Zoe Vásquez, RN 02/08/2025 4:15 PM EDT Clinical Support [facility] [address] [place] [address] Shavon Ng FNP-C Essential hypertension (Primary Dx); History of renal transplant; History of immunosuppressive therapy; Stage 3a chronic kidney disease (HCC) 02/01/2025 Orders Only [facility] [address] [place] [address] Hiwot Smith MA Kidney replaced by transplant [...] Visit [facility] Access [address] [place] [address] Damian Norris MD 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) 01/23/2025 Documentation Only [facility] [address] [place] [address] Hiwot Smith MA 01/16/2025 Telephone [facility] [address] [place] [address] Antonia Jackson 01/15/2025 10:00 AM EDT Procedure visit [facility] Access [address] [place] [address] Tereso Arrieta MD End stage renal disease (HCC) (Primary Dx); Other mechanical complication of surgically created arteriovenous fistula, initial encounter (HCC) 01/15/2025 Telephone [facility] [address] [place] [address] Katharina Butt 01/12/2025 Telephone [facility] [address] [place] [address] Antonia Jackson 12/11/2024 Orders Only [facility] [address] [place] [address] Hiwot Smith MA Kidney replaced by transplant (Primary Dx); History of renal transplant; History of immunosuppressive therapy; Stage 3a chronic kidney disease (HCC); Hyperlipidemia, not otherwise specified; Type 2 diabetes mellitus without complication (HCC); Other iron deficiency anemia; Other specified hypoparathyroidism (HCC); Albuminuria, not otherwise specified 12/07/2024 Office Communication [facility] [address] [place] [address] Arleen Kingston 12/07/2024 Telephone [facility] [address] [place] [address] Hiwot Smith MA 11/22/2024 2:30 PM EDT Office Visit [facility] Access [address] [place] [address] Zhang Nazario MD Kidney replaced by transplant (Primary Dx) 11/20/2024 Telephone [facility] Access [address] [place] [address] Antonia Jackson from Last 3 Months Immunizations [...] [facility] [place] [address] [place] [address] Shavon Ng, TATTOO AND BODY ARTIST-C [address] [place] [address] Health Maintenance Due Date Last Done Comments [...] AM EDT) Hemoglobin A1C 6.4(H) (4.0-5.6) % [facility] Comment: MONITORING: In known diabetic patients, hemoglobin A1c targets should be discussed with health care provider. DIAGNOSTIC USE: The [place] Diabetes [employer] (ADA) and the World Health [...] Supplement 1 Testing performed or reported by [facility], a Service of [facility], [address] [place] [address] Tate Pham MD, English Drawer [facility]# [id number] Blood specimen (specimen) Venous blood / Unknown 11/13/2022 9:47 AM EDT 11/13/2022 9:48 AM EDT us Rony [facility] BLOOD ORDERABLES Final Re sult [facility] from Last 3 Months or Most Recently Relevant [place] [id number] [facility] [place] [address] [place] [id number] [facility] [place] [address] Care Teams Interior Decorator Relationship Specialty Start Date End Date Jessica Santamaria MD [address] [place], [place] PCP - General 04/04/19
--- OUTSIDE RECORDS SUMMARY | 2025-02-19 13:56 | XMS_ITS | Encounter Summary ---
Author Organization [facility] Address [address] [place] [address] Phone Care Team Providers Care Chief Substation Operator Name Role Phone Jessica Santamaria MD Primary Care Provider [phone] Encounter Details Date Type Department Care Team (Late Contact Info) Description 09/20/2023 Documentation Only [facility] [place], [address] [place] [address] [place] [address] [place] [address] Social History Tobacco Use Types [...] Support [facility] [place] [address] [place] [address] Shavon Ng FNP-C [address] [place] [address] documented as of this encounter Visit Diagnoses Not on filedocumented in this encounter Care Teams Chief Substation Operator Relationship Specialty Start Date End Date Jessica Santamaria MD [address] [place], [place] PCP - General 04/04/19 documented as of this encounter
--- OUTSIDE RECORDS SUMMARY | 2025-02-19 13:56 | XMS_ITS | Encounter Summary ---
Author Organization [facility] [place], Address [address] [place] [address] Phone Care Team Providers Care Child And Adolescent Psychiatrist Name Role Phone Jessica Santamaria MD Primary Care Provider [phone] Reason for Visit * Reason Comments Med Refill Encounter Details Date Type Department Care Team (Late st Contact Info) Description 04/16/2022 Refill [facility] [address] [place] [address] Rony Donato PA [address] [place] [address] [place] [address] Social History Tobacco Use Types [...] Support [facility] [address] [place] [address] Shavon Ng FNP-C [address] [place] [address] [place] [address] documented as of this encounter Visit Diagnoses Not on filedocumented in this encounter Care Teams Child And Adolescent Psychiatrist Relationship Specialty Start Date End Date Jessica Santamaria MD [address] [place], [place] PCP - General 04/04/19 documented as of this encounter
--- OUTSIDE RECORDS SUMMARY | 2025-02-19 13:56 | XMS_ITS | Encounter Summary ---
Author Organization [facility] Address [address] [place] [address] Phone Care Team Providers Care Ophthalmologist Name Role Phone Jessica Santamaria MD Primary Care Provider [phone] Encounter Details Date Type Department Care Team (Late Contact Info) Description 04/28/2024 Documentation Only [facility] [place], [address] [place] [address] [place] [address] [place] [address] Social History Tobacco Use Types [...] [facility] [place] [address] [place] [place] [address] Shavon Ng FNP-C [address] [place] [place] [address] documented as of this encounter Visit Diagnoses Not on filedocumented in this encounter Care Teams Ophthalmologist Relationship Specialty Start Date End Date Jessica Santamaria MD [address] [place], [place] PCP - General 04/04/19 documented as of this encounter
--- OUTSIDE RECORDS SUMMARY | 2025-02-19 13:56 | XMS_ITS | Encounter Summary ---
Author Organization [facility] Address [address] [place] [address] Phone Care Team Providers Care Carrier Packer Name Role Phone Jessica Santamaria MD Primary Care Provider [phone] Encounter Details Date Type Department Care Team (Late Contact Info) Description 09/18/2024 Documentation Only [facility] [place], [address] [place] [address] [place], [place] [address] [place] [address] Social History Tobacco Use Types [...] Support [facility] [place] [address] [place] [address] Shavon Ng FNP-C [address] [place] [address] documented as of this encounter Visit Diagnoses Not on filedocumented in this encounter Care Teams Carrier Packer Relationship Specialty Start Date End Date Jessica Santamaria MD [address] [place], [place] PCP - General 04/04/19 documented as of this encounter
== END 2025-02-19 11:15 | disposition home or self-care (01) ==
LOC: HO.LAB 11:14
PROVIDERS: Visit Provider Internal Medicine
DX: E11.65 Type 2 diabetes mellitus with hyperglycemia (principal); E03.9 Hypothyroidism, unspecified; E78.5 Hyperlipidemia, unspecified; E55.9 Vitamin D deficiency, unspecified; N25.81 Secondary hyperparathyroidism of renal origin; D64.9 Anemia, unspecified
CPT/HCPCS: 36415; 80053; 80061; 82306; 84100; 84443; 85025

== ENCOUNTER 2025-02-27 09:41 | Day surgery (SDC) | payer OTHER, SELFPAY ==
--- OUTSIDE RECORDS SUMMARY | 2025-02-15 07:33 | XMS_ITS | Clinical Summary ---
Author Organization [facility] [place], Address [address] [place] [address] [place] [address] Phone Care Team Providers Care Education Spec Name Role Phone Jessica Santamaria MD Primary Care Provider [phone] Allergies Active Allergy Reactions Criticality Noted Date [...] a day if needed 09/07/19 21 Active labetalol (NORMODYNE) 200 MG tablet [...] the evening. 360 capsule 11 05/09/20 24 2024 Active mycophenolate (MYFORTIC) 180 MG EC tablet Take 3 tablets (540 mg total) by mouth in the morning and 3 tablets (540 mg total) in the evening. 180 tablet 11 06/02/19 25 2025 Active calcitriol (ROCALTROL) 0.25 MCG capsule TAKE 1 CAPSULE BY MOUTH 3 TIMES PER WEEK 36 capsule 3 10/26/19 25 Active acetaminophen (Tylenol) 325 MG tablet Take 650 mg by mouth every 4 (four) hours if needed 03/21/20 Active bisacodyl (DULCOLAX) 10 MG suppository Insert 10 mg into the rectum if needed for constipation 03/21/20 Active Ferrous Fumarate 325 (106 Fe) MG tablet Take 325 mg by mouth 1 (one) time each day 09/15/19 Active fluticasone (Flonase Allergy Relief) 50 MCG/ACT nasal spray Daily, 0 Refills, Maintenance, 08/10/18 9:55:03 AM EDT 08/11/19 Active Tradjenta 5 MG tablet Take 1 tablet by mouth 1 (one) time each day 12/06/19 Active Pancrelipase, Dpr-Ypor-Zjuc, (CREON PO) Take by mouth in the morning and at noon and in the evening. Take with meals. 01/22/20 20 Active sodium bicarbonate 650 MG tablet Take 650 mg by mouth in the morning and 650 mg in the evening. 08/11/19 19 Active NIFEdipine XL (PROCARDIA XL) 30 MG 24 hr tabletIndicatio ns:Essential hypertension Take 1 tablet (30 mg total) by mouth 1 (one) time each day Do not crush, chew, or split. 30 tablet 02/09/20 25 2025 Active NIFEdipine CC (PROCARDIA XL) 60 MG 24 hr tablet Take 1 tablet (60 mg total) by mouth 1 (one) time each day 30 tablet 03/12/20 21 09/11/ 2025 Discontinued Active Problems Problem Noted Date Diagnosed [...] Encounters Date Type Department Care Team Description 02/14/2025 Orders Only [facility] [address] [place] [address] Zoe Vásquez, RN History of renal transplant (Primary Dx); History of immunosuppressive therapy; Stage 3b chronic kidney disease (HCC) 02/14/2025 Telephone [facility] [address] [place] [address] Zoe Vásquez, RN 02/09/2025 Telephone [facility] [address] [place] [address] Zoe Vásquez, RN 02/08/2025 4:15 PM EDT Clinical Support [facility] [address] [place] [address] Shavon Ng FNP-C Essential hypertension (Primary Dx); History of renal transplant; History of immunosuppressive therapy; Stage 3a chronic kidney disease (HCC) 02/01/2025 Orders Only [facility] [address] [place] [address] Hiwot Smith [place] Kidney replaced by transplant (Primary Dx); History of renal transplant; History of immunosuppressive therapy; Stage 3a chronic kidney disease (HCC); Hyperlipidemia, not otherwise specified; Type 2 diabetes mellitus without complication (HCC); Vitamin D deficiency, not otherwise specified; Idiopathic gout, not otherwise specified; Hypomagnesemia; Other iron deficiency anemia; Albuminuria, not otherwise specified; Other specified hypoparathyroidism (HCC); Poor glycemic control 01/23/2025 11:15 AM EDT Office Visit [facility] Vascular Access [address] [place] [address] Damian Norris MD 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) 01/23/2025 Documentation Only [facility] [address] [place] [address] Hiwot Smith [place] 01/16/2025 Telephone [facility] [address] [place] [address] Antonia Jackson 01/15/2025 10:00 AM EDT Procedure visit [facility] Access [address] [place] [address] Tereso Arrieta MD End stage renal disease (HCC) (Primary Dx); Other mechanical complication of surgically created arteriovenous fistula, initial encounter (HCC) 01/15/2025 Telephone [facility] Vascular Access [address] [place] [address] Katharina Butt 01/12/2025 Telephone [facility] Vascular Access [address] [place] [address] Antonia Jackson 12/11/2024 Orders Only [facility] [address] [place] [address] Hiwot Smith [place] Kidney replaced by transplant (Primary Dx); History of renal transplant; History of immunosuppressive therapy; Stage 3a chronic kidney disease (HCC); Hyperlipidemia, not otherwise specified; Type 2 diabetes mellitus without complication (HCC); Other iron deficiency anemia; Other specified hypoparathyroidism (HCC); Albuminuria, not otherwise specified 12/07/2024 Office Communication [facility] [address] [place] [address] Arleen Kingston 12/07/2024 Telephone [facility] [address] [place] [address] Hiwot Smith [place] 11/22/2024 2:30 PM EDT Office Visit [facility] Vascular Access [address] [place] [address] Zhang Nazario MD Kidney replaced by transplant (Primary Dx) 11/20/2024 Telephone [facility] Vascular Access [address] [place] [address] Antonia Jackson from Last 3 Months Immunizations [...] Pulse 68 02/08/2025 4:36 PM EDT Temperature 36.3 C (97.3 F) 01/15/2025 9:49 AM EDT Respiratory Rate 16 01/15/2025 9:49 AM EDT Oxygen Saturation 94% 01/15/2025 9:49 AM EDT Inhaled Oxygen Concentration - - Weight 67.1 kg (148 lb) 02/08/2025 4:36 PM EDT Height 152.4 cm (5') 01/15/2025 9:49 AM EDT Body Mass Index 28.9 01/15/2025 9:49 AM EDT Plan of Treatment Health Maintenance Due Date [...] AM EDT) Hemoglobin A1C 6.4(H) (4.0-5.6) % [facility] Comment: MONITORING: In known diabetic patients, hemoglobin A1c targets should be discussed with health care provider. DIAGNOSTIC USE: The [place] Diabetes Association (ADA) and the World Health [...] Supplement 1 Testing performed or reported by [facility], a Service of [facility], [address] [place] [place] [address] Tate Pham MD, Chemotherapist [facility]# [id number] Blood specimen (specimen) Venous blood / Unknown 11/13/2022 9:47 AM EDT 11/13/2022 9:48 AM EDT Rony MEHT[facility] BLOOD ORDERABLES Final Re sult [facility] from Last 3 Months or Most Recently Relevant to Health Maintenance Insurance [id number] [place] [id number] [facility] [place] [address] MICHELLE FUENTES [id number] [place] [id number] Care Teams Education Spec Relationship Specialty Start Date End Date Jessica Santamaria MD [address] [place], [place] PCP - General 04/04/19
--- OUTSIDE RECORDS SUMMARY | 2025-02-15 07:33 | XMS_ITS | Encounter Summary ---
Author Organization [facility] [place], Address [address] [address] Phone Care Team Providers Care Aircraft Sales Representative Name Role Phone Jessica Santamaria MD Primary Care Provider [phone] Reason for Visit * Reason Comments Med Refill Encounter Details Date Type Department Care Team (Late st Contact Info) Description 07/13/2022 Refill [facility] [address] [place] [address] Alvaro Stratton MD [address] [place] [address] [place] [address] [place] [phone] Social History Tobacco Use Types Packs/Day Years [...] on filedocumented in this encounter Care Teams Aircraft Sales Representative Relationship Specialty Start Date End Date Jessica Santamaria MD [address] [place] [address] PCP - General 04/04/19 documented as of this encounter
--- OUTSIDE RECORDS SUMMARY | 2025-02-15 07:33 | XMS_ITS | Encounter Summary ---
Author Organization [facility] Address [address] [place] [address] Phone Care Team Providers Care Grain Unloader Name Role Phone Jessica Santamaria MD Primary Care Provider [phone] Encounter Details Date Type Department Care Team (Late st Contact Info) Description 09/15/2024 Telephone [facility] [place], [address] [place] [address] Karyn Ross Social History Tobacco [...] tender and painful. Please return the call [phone] - thank you documented in this encounter Plan of Treatment Not on file documented as of this encounter Visit Diagnoses Not on filedocumented in this encounter Care Teams Grain Unloader Relationship Specialty Start Date End Date Jessica Santamaria MD [address] [place] [address] PCP - General 04/04/19 documented as of this encounter
--- OUTSIDE RECORDS SUMMARY | 2025-02-15 07:33 | XMS_ITS | Encounter Summary ---
Author Organization [facility] [place], Address [address] [place] [address] Phone Care Team Providers Care Lidding Machine Operator Name Role Phone Jessica Santamaria MD Primary Care Provider [phone] Encounter Details Date Type Department Care Team (Late st Contact Info) Description 01/23/2025 Documentation Only [facility] [place], [address] [place] [address] [place], [place] [address] [place] [address] Social History Tobacco Use Types [...] on filedocumented in this encounter Care Teams Lidding Machine Operator Relationship Specialty Start Date End Date Jessica Santamaria MD [address] [place], [place] PCP - General 04/04/19 documented as of this encounter
--- OUTSIDE RECORDS SUMMARY | 2025-02-15 07:33 | XMS_ITS | Encounter Summary ---
Author Organization [facility] [place], Address [address] [place] [address] Phone Care Team Providers Care Track Laying Equipment Operator Name Role Phone Jessica Santamaria MD Primary Care Provider [phone] Encounter Details Date Type Department Care Team (Late st Contact Info) Description 04/28/2024 Documentation Only [facility] [place], [address] [place] [place] [address] [place], [place] [address] [place] [address] Social History Tobacco Use Types [...] on filedocumented in this encounter Care Teams Track Laying Equipment Operator Relationship Specialty Start Date End Date Jessica Santamaria MD [address] [place], [place] PCP - General 04/04/19 documented as of this encounter
--- OUTSIDE RECORDS SUMMARY | 2025-02-15 07:33 | XMS_ITS | Encounter Summary ---
Author Organization [facility] [place], Address [address] [place] [address] Phone Care Team Providers Care Route Agent Name Role Phone Jessica Santamaria MD Primary Care Provider [phone] Reason for Visit * Reason Comments Med Refill Encounter Details Date Type Department Care Team (Late st Contact Info) Description 07/20/2023 Refill [facility] [place] [address] [place] [address] Rony Donato PA [address] [place] [place] [address] Social History Tobacco Use Types Packs/Day Years [...] on filedocumented in this encounter Care Teams Route Agent Relationship Specialty Start Date End Date Jessica Santamaria MD [address] [place] [address] PCP - General 04/04/19 documented as of this encounter
--- OUTSIDE RECORDS SUMMARY | 2025-02-15 07:33 | XMS_ITS | Encounter Summary ---
Author Organization [facility] [place], Address [address] [place] [address] Phone Care Team Providers Care Pharmaceutical Representative Name Role Phone Jessica Santamaria MD Primary Care Provider [phone] Encounter Details Date Type Department Care Team (Late st Contact Info) Description 09/28/2023 Documentation Only [facility] [place], [address] [place] [address] [place], [place] [address] [place] [address] Social History Tobacco Use Types [...] on filedocumented in this encounter Care Teams Pharmaceutical Representative Relationship Specialty Start Date End Date Jessica Santamaria MD [address] [place], [place] PCP - General 04/04/19 documented as of this encounter
--- OUTSIDE RECORDS SUMMARY | 2025-02-15 07:33 | XMS_ITS | Encounter Summary ---
Author Organization [facility] [place], Address [address] [place] [address] Phone Care Team Providers Care Welder Oxyhydrogen Name Role Phone Jessica Santamaria MD Primary Care Provider [phone] Reason for Visit * Reason Comments Med Refill Encounter Details Date Type Department Care Team (Late st Contact Info) Description 06/11/2021 Refill [facility] [place] [address] [place] [address] Rony Donato PA [address] [place] [address] Social History Tobacco Use Types Packs/Day Years [...] on filedocumented in this encounter Care Teams Welder Oxyhydrogen Relationship Specialty Start Date End Date Jessica Santamaria MD [address] [place] [address] PCP - General 04/04/19 documented as of this encounter
--- OUTSIDE RECORDS SUMMARY | 2025-02-15 07:33 | XMS_ITS | Encounter Summary ---
Author Organization [facility], Address [address] [place] [address] Phone Care Team Providers Care Registered Respiratory Technician Name Role Phone Jessica Santamaria MD Primary Care Provider Encounter Details Date Type Department Care Team (Late st Contact Info) Description 10/05/2023 Documentation Only [facility], [address] [place] [address] [place], [place] [address] [place] [address] Social History Tobacco Use Types [...] on filedocumented in this encounter Care Teams Registered Respiratory Technician Relationship Specialty Start Date End Date Jessica Santamaria MD [address] [place], [place] PCP - General 04/04/19 documented as of this encounter
--- OUTSIDE RECORDS SUMMARY | 2025-02-15 07:33 | XMS_ITS | Encounter Summary ---
Author Organization [facility] [place], Address [address] [place] [address] Phone Care Team Providers Care Domestic Technician Name Role Phone Jessica Santamaria MD Primary Care Provider [phone] Encounter Details Date Type Department Care Team (Late st Contact Info) Description 09/20/2023 Documentation Only [facility] [place], [address] [place] [address] [place], [place] [address] [place] [address] Social History Tobacco Use Types [...] on filedocumented in this encounter Care Teams Domestic Technician Relationship Specialty Start Date End Date Jessica Santamaria MD [address] [place], [place] PCP - General 04/04/19 documented as of this encounter
--- OUTSIDE RECORDS SUMMARY | 2025-02-15 07:33 | XMS_ITS | Encounter Summary ---
Author Organization [facility] [place], Address [address] [place] [address] Phone Care Team Providers Care It Intern Name Role Phone Jessica Santamaria MD Primary Care Provider [phone] Encounter Details Date Type Department Care Team (Late st Contact Info) Description 08/20/2023 Documentation Only [facility] [place], [address] [place] [address] [place], [place] [address] [place] [address] Social History Tobacco Use Types [...] on filedocumented in this encounter Care Teams It Intern Relationship Specialty Start Date End Date Jessica Santamaria MD [address] [place], [place] PCP - General 04/04/19 documented as of this encounter
--- OUTSIDE RECORDS SUMMARY | 2025-02-15 07:33 | XMS_ITS | Encounter Summary ---
Author Organization [facility] [place], Address [address] [place] [address] Phone Care Team Providers Care Wind Farm Designer Name Role Phone Jessica Santamaria MD Primary Care Provider [phone] Encounter Details Date Type Department Care Team (Late st Contact Info) Description 09/27/2024 Documentation Only [facility] [place], [address] [place] [address] [place], [place] [address] [place] [address] Social History Tobacco Use Types [...] on filedocumented in this encounter Care Teams Wind Farm Designer Relationship Specialty Start Date End Date Jessica Santamaria MD [address] [place], [place] PCP - General 04/04/19 documented as of this encounter
--- OUTSIDE RECORDS SUMMARY | 2025-02-15 07:33 | XMS_ITS | Encounter Summary ---
Author Organization [facility] [place], Address [address] [place] [address] Phone Care Team Providers Care Assembler Handbags Name Role Phone Jessica Santamaria MD Primary Care Provider [phone] Reason for Visit * Reason Comments Med Refill Encounter Details Date Type Department Care Team (Late st Contact Info) Description 04/16/2022 Refill [facility] [address] [place] [address] Rony Donato PA [address] [place] [address] [place] [address] Social History Tobacco Use Types Packs/Day Years [...] on filedocumented in this encounter Care Teams Assembler Handbags Relationship Specialty Start Date End Date Jessica Santamaria MD [address] [place], [place] PCP - General 04/04/19 documented as of this encounter
--- OUTSIDE RECORDS SUMMARY | 2025-02-15 07:33 | XMS_ITS | Encounter Summary ---
Author Organization [facility] [place], Address [address] [place] [address] Phone Care Team Providers Care Anthropologist Physical Name Role Phone Jessica Santamaria MD Primary Care Provider [phone] Reason for Visit * Reason Comments Med Refill Encounter Details Date Type Department Care Team (Late st Contact Info) Description 06/20/2021 Refill [facility] [place] [address] [place] [address] Rony Donato PA [address] [place] [address] Social History Tobacco Use Types Packs/Day Years [...] on filedocumented in this encounter Care Teams Anthropologist Physical Relationship Specialty Start Date End Date Jessica Santamaria MD [address] [place] [address] PCP - General 04/04/19 documented as of this encounter
--- OUTSIDE RECORDS SUMMARY | 2025-02-15 07:33 | XMS_ITS | Encounter Summary ---
Author Organization [facility] [place], Address [address] [place] [address] Phone Care Team Providers Care Physician Scientist Name Role Phone Jessica Santamaria MD Primary Care Provider [phone] Encounter Details Date Type Department Care Team (Late st Contact Info) Description 09/20/2023 Documentation Only [facility] [place], [address] [place] [address] [place], [place] [address] [place] [address] Social History Tobacco Use Types [...] on filedocumented in this encounter Care Teams Physician Scientist Relationship Specialty Start Date End Date Jessica Santamaria MD [address] [place], [place] PCP - General 04/04/19 documented as of this encounter
--- OUTSIDE RECORDS SUMMARY | 2025-02-15 07:33 | XMS_ITS | Encounter Summary ---
Author Organization [facility] [place], Address [address] [place] [address] Phone Care Team Providers Care Grooming Salon Manager Name Role Phone Jessica Santamaria MD Primary Care Provider [phone] Reason for Visit * Reason Onset Date Comments rpt creatinine 02/14/2025 Encounter Details Date Type Department Care Team (Late st Contact Info) Description 02/14/2025 Telephone [facility] [address] [place] [address] Zoe Vásquez RN [address] [place] [address] [place] [address] Social History Tobacco Use Types Packs/Day Years [...] encounter Miscellaneous Notes * Telephone Encounter - Zoe Vásquze RN - 02/14/2025 5:00 PM EDT Received labs from 01/23 showing creat higher than previous levels at 1.7 (baseline has been anywhere from 1.2 -1.6). Pt instructed to increase hydration and will rpt renal panel on 02/19. documented in this encounter Plan of Treatment Scheduled Orders Name Type Priority Associated Diagnoses Orde r Schedule Renal function panel Lab Routine Stage 3b chronic kidney disease (HCC) History of renal transplant Expected: 02/14/2025, Expires: 03/16/2026 documented as of this encounter Visit Diagnoses Diagnosis Stage 3b chronic kidney disease (HCC)- Primary History of renal transplant documented in this encounter Care Teams Grooming Salon Manager Relationship Specialty Start Date End Date Jessica Santamaria MD [address] [place], [place] PCP - General 04/04/19 documented as of this encounter
--- OUTSIDE RECORDS SUMMARY | 2025-02-15 07:33 | XMS_ITS | Encounter Summary ---
Author Organization [facility] [place], Address [address] [place] [address] Phone Care Team Providers Care Csr Technician Name Role Phone Jessica Santamaria MD Primary Care Provider [phone] Encounter Details Date Type Department Care Team (Late st Contact Info) Description 06/30/2024 Documentation Only [facility], [address] [place] [address] [place], [place] [address] [place] [address] Social History Tobacco Use Types [...] on filedocumented in this encounter Care Teams Csr Technician Relationship Specialty Start Date End Date Jessica Santamaria MD [address] [place], [place] PCP - General 04/04/19 documented as of this encounter
--- OUTSIDE RECORDS SUMMARY | 2025-02-15 07:33 | XMS_ITS | Encounter Summary ---
Author Organization [facility] [place], Address [address] [place] [address] Phone Care Team Providers Care Undercover Agent Name Role Phone Jessica Santamaria MD Primary Care Provider [phone] Reason for Visit * Reason Comments Med Refill Encounter Details Date Type Department Care Team (Late st Contact Info) Description 06/23/2021 Refill [facility] [address] [place] [address] Rony Donato PA [address] [place] [address] Social History Tobacco Use Types Packs/Day Years [...] on filedocumented in this encounter Care Teams Undercover Agent Relationship Specialty Start Date End Date Jessica Santamaria MD [address] [place] [address] PCP - General 04/04/19 documented as of this encounter
--- OUTSIDE RECORDS SUMMARY | 2025-02-15 07:33 | XMS_ITS | Encounter Summary ---
Author Organization [facility] [place], Address [address] [place] [address] Phone Care Team Providers Care Rn Concurrent Review Name Role Phone Jessica Santamaria MD Primary Care Provider [phone] Encounter Details Date Type Department Care Team (Late st Contact Info) Description 09/18/2024 Documentation Only [facility] [place], [address] [place] [address] [place], [place] [address] [place] [address] Social History Tobacco Use [...] on filedocumented in this encounter Care Teams Rn Concurrent Review Relationship Specialty Start Date End Date Jesisca Santamaria MD [address] [place], [place] PCP - General 04/04/19 documented as of this encounter
--- OUTSIDE RECORDS SUMMARY | 2025-02-15 07:33 | XMS_ITS | Encounter Summary ---
Author Organization [facility], Address [address] [place] [address] Phone Care Team Providers Care Realtime Reporter Name Role Phone Jessica Santamaria MD Primary Care Provider [phone] Encounter Details Date Type Department Care Team (Late st Contact Info) Description 02/16/2024 Documentation Only [facility] [place], [address] [place] [address] [place], [place] [address] [place] [address] Social History Tobacco Use Types [...] on filedocumented in this encounter Care Teams Realtime Reporter Relationship Specialty Start Date End Date Jessica Santamaria MD [address] [place], [place] PCP - General 04/04/19 documented as of this encounter
--- OUTSIDE RECORDS SUMMARY | 2025-02-15 07:33 | XMS_ITS | Encounter Summary ---
Author Organization [facility] [place], Address [address] [place] [address] Phone Care Team Providers Care Risk Modeler Name Role Phone Jessica Santamaria MD Primary Care Provider [phone] Encounter Details Date Type Department Care Team (Late st Contact Info) Description 06/30/2024 Documentation Only [facility] [place], [address] [place] [address] [place], [place] [address] [place] [address] Social History Tobacco Use Types [...] on filedocumented in this encounter Care Teams Risk Modeler Relationship Specialty Start Date End Date Jessica Santamaria MD [address] [place], [place] PCP - General 04/04/19 documented as of this encounter
--- OUTSIDE RECORDS SUMMARY | 2025-02-15 07:33 | XMS_ITS | Encounter Summary ---
Author Organization [facility], Address [address] [place] [address] Phone Care Team Providers Care Flight Engineer Helicopter Name Role Phone Jessica Santamaria MD Primary Care Provider [phone] Encounter Details Date Type Department Care Team (Late st Contact Info) Description 11/18/2023 Documentation Only [facility] [place], [address] [place] [address] [place], [place] [address] [place] [address] Social History Tobacco Use Types [...] filedocumented in this encounter Care Teams Flight Engineer Helicopter Relationship Specialty Start Date End Date Jessica Santamaria MD [address] [place], [place] PCP - General 04/04/19 documented as of this encounter
--- OUTSIDE RECORDS SUMMARY | 2025-02-15 07:33 | XMS_ITS | Encounter Summary ---
Author Organization [facility] [place], Address [address] [place] [address] Phone Care Team Providers Care Inside B2B Sales Name Role Phone Jessica Santamaria MD Primary Care Provider [phone] Encounter Details Date Type Department Care Team (Late st Contact Info) Description 09/18/2024 Documentation Only [facility] [place], [address] [place] [place] [address] [place], [place] [address] [place] [address] Social History Tobacco Use [...] on filedocumented in this encounter Care Teams Inside B2B Sales Relationship Specialty Start Date End Date Jessica Santamaria MD [address] [place], [place] PCP - General 04/04/19 documented as of this encounter
--- OUTSIDE RECORDS SUMMARY | 2025-02-15 07:33 | XMS_ITS | Encounter Summary ---
Author Organization [facility] [place], Address [address] [address] Phone Care Team Providers Care Senior Architectural Designer Name Role Phone Jessica Santamaria MD Primary Care Provider [phone] Reason for Visit * Reason Comments Med Refill Encounter Details Date Type Department Care Team (Late st Contact Info) Description 04/12/2023 Refill [facility] [place], [address] [place] [address] Alvaro Stratton MD [address] [place] [address] [place] [address] Social History Tobacco Use Types Packs/Day Years [...] filedocumented in this encounter Care Teams Senior Architectural Designer Relationship Specialty Start Date End Date Jessica Santamaria MD [address] [place] [address] PCP - General 04/04/19 documented as of this encounter
--- OUTSIDE RECORDS SUMMARY | 2025-02-15 07:33 | XMS_ITS | Encounter Summary ---
Author Organization [facility], Address [address] [place] [address] Phone Care Team Providers Care Marking Devices Assembler Name Role Phone Jessica Santamaria MD Primary Care Provider [phone] Reason for Visit * Reason Comments Med Refill Encounter Details Date Type Department Care Team (Late st Contact Info) Description 08/24/2022 Refill [facility] [address] [place] [address] Rony Donato PA [address] [place] [address] Social History Tobacco Use Types Packs/Day Years [...] on filedocumented in this encounter Care Teams Marking Devices Assembler Relationship Specialty Start Date End Date Jessica Santamaria MD [address] [place] [address] PCP - General 04/04/19 documented as of this encounter
--- OUTSIDE RECORDS SUMMARY | 2025-02-15 07:33 | XMS_ITS | Encounter Summary ---
Author Organization [facility], Address [address] [place] [address] Phone Care Team Providers Care Director Appointment Name Role Phone Jessica Santamaria MD Primary Care Provider [phone] Encounter Details Date Type Department Care Team (Latest Contact Info) Description 02/14/2025 Orders Only [facility] [address] [place] [address] Zoe Vásquez, ANABELL [address] [place] [address] [place] [address] History of renal transplant (Primary Dx); History of immunosuppressive therapy; Stage 3b chronic kidney disease (HCC) Social History Tobacco [...] Schedule Tacrolimus, Highly Sensitive, LC/MS/MS Lab Routine History of renal transplant History of immunosuppressive therapy Stage 3b chronic kidney disease (HCC) Expected: 02/14/2025, Expires: 03/16/2026 documented as of this encounter Visit Diagnoses Diagnosis History of renal transplant- Primary History of immunosuppressive therapy Stage 3b chronic kidney disease (HCC) documented in this encounter Care Teams Director Appointment Relationship Specialty Start Date End Date Jessica Santamaria MD [address] [place] PCP - General 04/04/19 documented as of this encounter
--- OUTSIDE RECORDS SUMMARY | 2025-02-15 07:33 | XMS_ITS | Encounter Summary ---
Author Organization [facility] [place], Address [address] [place] [address] Phone Care Team Providers Care Parts Lister Name Role Phone Jessica Santamaria MD Primary Care Provider [phone] Reason for Visit * Reason Comments Med Refill Encounter Details Date Type Department Care Team (Late st Contact Info) Description 06/23/2022 Refill [facility] [place] [address] [place] [address] Rony Donato PA [address] [place] [address] Social History Tobacco Use Types Packs/Day Years [...] on filedocumented in this encounter Care Teams Parts Lister Relationship Specialty Start Date End Date Jessica Santamaria MD [address] [place] [address] PCP - General 04/04/19 documented as of this encounter
--- NOTE | 2025-02-26 10:44 | HO.ANESPROP2 ---
Documented by User: Margaux Bond NP 02/26/25 10:52 HPI - Anesthesia Eval Consult details Narrative: 59 yr old female for Upper Endoscopy and Colonoscopy H/O kidney transplant Anesthesia Pre-Procedure Meds Is the patient on any of the following meds?: SGLT2 Inhib PMFSH Active Problems Active Problems: All Active Problems (Updated 06/25/22 @ 12:12 by Kary Ryan RN) Lumbar degenerative disc disease (Acute) Hypothyroidism (Acute) Mild recurrent major depression (Acute) Weight loss (Acute) Polyarthralgia (Acute) Secondary hyperparathyroidism (Acute) Left leg pain (Acute) Opioid-induced constipation (Acute) Muscle cramps (Acute) CKD (chronic kidney disease) stage 3, GFR 30-59 ml/min (Acute) Insomnia (Acute) Epigastric pain (Acute) Physical exam (Acute) URI (upper respiratory infection) (Acute) Hyperlipidemia LDL goal <70 (Acute) Irritable bowel syndrome with constipation (Acute) GERD (gastroesophageal reflux disease) (Acute) Hemorrhoids (Acute) Chronic idiopathic constipation (Acute) Pedal edema (Acute) UTI (urinary tract infection) (Acute) Rash (Acute) Left shoulder pain (Acute) Ecchymosis (Acute) Adult general medical exam (Acute) Diabetes mellitus (Acute) Right ankle pain (Acute) Left ankle pain (Acute) Fatigue (Acute) Hair loss (Acute) Back pain (Acute) Pancreatic lesion (Acute) Pneumonia due to COVID-19 virus (Acute) Essential hypertension (Acute) Kidney transplant recipient (Acute) Past Medical History Medical History (Updated 02/27/25 @ 11:12 by Caitlin Suarez RN) Hx of sciatica CVA (cerebral vascular accident) Malnutrition Diabetes mellitus Right ankle pain Left ankle pain Fatigue Hair loss Back pain Pancreatic lesion Pneumonia due to COVID-19 virus Essential hypertension Family History Family History Father CVD (cardiovascular disease) Prostate cancer Mother No problems noted. Family history of problems with anesthesia: No Surgical History Surgical History History of esophagogastroduodenoscopy (EGD) Hx of colonoscopy Kidney transplant recipient AV fistula Kidney transplant status History of tubal ligation History of foot surgery History of lipoma History of benign breast tumor History of Problems with Anesthesia: No Social History Social History Household Members: Children Housing: Apartment Alcohol intake: never Patient Tobacco Use Status: Former Tobacco user Tobacco use type: Cigarette e-Cigarette/Vaping Use: Never Used Second Hand Smoke Exposure: No Use of substances other than those prescribed or required for medical reasons: No Are you DNR?: No Advance Directives: No Advance Directives Information Provided: Yes service: No Current occupational status: unemployed Cognitive needs: No Hearing needs: No Vision needs: Yes Meds Allergies Allergy/AdvReac Type Severity Reaction Status Date / Time amlodipine AdvReac Intermediate leg edema Verified 02/27/25 11:12 morphine AdvReac Mild Rash Verified 02/27/25 11:12 Home Medications ?Medication ?Instructions ?Recorded ?Confirmed ?Last Taken ?Type albuterol sulfate 90 mcg/actuation 1 inh inhalation Q4-6H PRN 04/02/23 02/27/25 Unknown History aerosol inhaler (Ventolin HFA) Shortness Of Breath Or Wheezing fluticasone propionate 50 1 spray intranasal BID 04/02/23 02/27/25 Unknown History mcg/actuation nasal spray,suspension lubiprostone 24 mcg capsule 24 mcg PO DAILY 10/04/23 02/27/25 Unknown History (Amitiza) calcitriol 0.25 mcg capsule 0.25 mcg PO DAILY 02/11/24 02/27/25 Unknown History dapagliflozin propanediol 10 mg 10 mg PO DAILY 02/17/24 02/27/25 02/23/25 History tablet (Farxiga) mycophenolate sodium 180 mg 540 mg PO BID 02/17/24 02/27/25 Unknown History tablet,delayed release tacrolimus 1 mg capsule, 7 mg PO DAILY 02/17/24 02/27/25 Unknown History immediate-release Exam Pertinent Lab Results Pertinent Lab Results: Laboratory Tests 02/19/25 11:44 WBC 5.1 RBC 4.61 Hgb 13.1 Hct 38.6 Plt Count 163 Sodium 140 Potassium 4.2 BUN 26 H Creatinine 1.69 H Assessment and Plan Final Anesthetic Review Family History of Problems with Anesthesia: No History of Problems with Anesthesia: No Documented by User: Malachi Alvarez MD 02/27/25 12:51 PMF Past Medical History Medical History (Updated 02/27/25 @ 11:12 by Caitlin Suarez, RN) Hx of sciatica CVA (cerebral vascular accident) Malnutrition Diabetes mellitus Right ankle pain Left ankle pain Fatigue Hair loss Back pain Pancreatic lesion Pneumonia due to COVID-19 virus Essential hypertension Family History Family History Father CVD (cardiovascular disease) Prostate cancer Mother No problems noted. Surgical History Surgical History History of esophagogastroduodenoscopy (EGD) Hx of colonoscopy Kidney transplant recipient AV fistula Kidney transplant status History of tubal ligation History of foot surgery History of lipoma History of benign breast tumor Social History Social History Household Members: Children Housing: Apartment Alcohol intake: never Patient Tobacco Use Status: Former Tobacco user Tobacco use type: Cigarette e-Cigarette/Vaping Use: Never Used Second Hand Smoke Exposure: No Use of substances other than those prescribed or required for medical reasons: No Are you DNR?: No Advance Directives: No Advance Directives Information Provided: Yes service: No Current occupational status: unemployed Cognitive needs: No Hearing needs: No Vision needs: Yes Meds Allergies Allergy/AdvReac Type Severity Reaction Status Date / Time amlodipine AdvReac Intermediate leg edema Verified 02/27/25 11:12 morphine AdvReac Mild Rash Verified 02/27/25 11:12 Home Medications ?Medication ?Instructions ?Recorded ?Confirmed ?Last Taken ?Type albuterol sulfate 90 mcg/actuation 1 inh inhalation Q4-6H PRN 04/02/23 02/27/25 Unknown History aerosol inhaler (Ventolin HFA) Shortness Of Breath Or Wheezing fluticasone propionate 50 1 spray intranasal BID 04/02/23 02/27/25 Unknown History mcg/actuation nasal spray,suspension lubiprostone 24 mcg capsule 24 mcg PO DAILY 10/04/23 02/27/25 Unknown History (Amitiza) calcitriol 0.25 mcg capsule 0.25 mcg PO DAILY 02/11/24 02/27/25 Unknown History dapagliflozin propanediol 10 mg 10 mg PO DAILY 02/17/24 02/27/25 02/23/25 History tablet (Farxiga) mycophenolate sodium 180 mg 540 mg PO BID 02/17/24 02/27/25 Unknown History tablet,delayed release tacrolimus 1 mg capsule, 7 mg PO DAILY 02/17/24 02/27/25 Unknown History immediate-release Exam Airway Mallampati Class: II TM Dist: <=3cm Neck ROM: Full Loose/Missing/Broken Teeth: No Heart: ok Lungs: ok Assessment and Plan Assessment Anesthesia Assessment: Anesthesia Plan Discussed and Chart Reviewed Final Anesthetic Review NPO: Yes ASA Class: III Final Preanesthetic Review: No Changes in Pt Med Stat, Meds/Allgs Chart Reviewed, Consent Obtained/Reviewed and Anes Risks/Benef Reviewed Patient Risk: Intermediate Procedure Risk: Intermediate Anesthetic Plan Anesthetic Plan: Agree w/ Assess. and Plan and TIVA Disposition: Standard PACU
[2025-02-27 11:19] VITALS: BMI 27.4
[2025-02-27 11:38] VITALS: BP 98/48; PULSE 73; RESP 15; TEMP 36.3; O2SAT 96
[2025-02-27] MEDS: Lactated Ringers 1,000 ML 100 ML IVCONT (11:51)
[2025-02-27 12:22] LABS: Glucose, Whole Blood 120 mg/dL (60-115)
--- NOTE | 2025-02-27 12:24 | MHC.SHP ---
Pre-Procedural Eval Section A - 24 Hr Update-Section A only Date of Service: 02/27/25 Section B - Complete if H&P > 30 days Chief Complaint: Change in bowel habit Relevant Family History (Specify if Yes): No Relevant Social History: None Present Medications: see Short Stay Collaborative assessment Medical History: Significant History (Malnutrition Diabetes mellitus Right ankle pain Left ankle pain Fatigue Hair loss Back pain Pancreatic lesion Pneumonia due to COVID-19 virus Essential hypertension) History of Previous Operations: Relevant previous surgery/procedure and date(s) ( History of esophagogastroduodenoscopy (EGD) Hx of colonoscopy Kidney transplant recipient AV fistula Kidney transplant status History of tubal ligation History of foot surgery History of lipoma History of benign breast tumor) Allergies: Allergies Allergy/AdvReac Type Severity Reaction Status Date / Time amlodipine AdvReac Intermediate leg edema Verified 02/27/25 11:12 morphine AdvReac Mild Rash Verified 02/27/25 11:12 Review of Systems Sugical H&P ROS: Negative: Constitution, Cardiovascular, Respiratory, Neurological, Psychiatric, Hem-Onc, Allergic/Immunologic, Gastrointestinal, Genitourinary, Musculoskeletal, Integumentary, Endocrine and Eyes/Ears/Nose/Throat Exam Surgical H&P Exam: Normal: HEENT, Normal: Heart, Normal: Lungs, Normal: Extremities, Normal: Abdomen, Normal: Skin and Normal: Neurological Plan Diagnosis/Plan: Unchanged I have reviewed the history and physical and performed a pertinent physical examination on my patient. No changes have occurred unless specified. Time Spent With Patient Time: Total time managing care of this patient today ____ minutes.
--- NOTE | 2025-02-27 13:10 | P.OPN-COLO_ITS ---
Colonoscopy Operative Note Operative Note Date of Service: 02/27/25 Narrative: Operative Information Procedure Description: EGD, Colonoscopy Indication: abn bowel habits Anesthesia: MAC FLEXIBLE TRANSORAL UPPER GASTROINTESTINAL ENDOSCOPY AND COLONOSCOPY PROCEDURE NOTE UPPER ENDOSCOPY Consent: Indications for the procedure and potential complications of bleeding, perforation, reaction to medications and missed diagnosis were discussed with the patient and informed consent was obtained. Instrument: Olympus GIF H 190 J mid size upper endoscope Monitoring: Vital signs and clinical assessment, continuous EKG monitoring, Pulse oximetry, Carbon Dioxide monitoring and blood pressure monitoring were done throughout the procedure. Procedure: The patient was placed in the left lateral decubitis position and pre-procedure medications were administered and a bite block was placed. The endoscope was inserted into the mouth and advanced under direct vision to the third part of duodenum. A careful inspection was made as the upper endoscope was withdrawn including a retroflexed examination of the proximal stomach; Findings and interventions are described below. Findings: Larynx:normal Esophagus: GE junction at 35 cm, diaphragm hiatus at 38 cm, consistent with 3 cm fixed hiatal hernia, mild esophagitis noted around a schatzki ring --LES is v lax Stomach: Patchy erythema and granular mucosa noted. Biopsies were obtained. Grade 2 flap valve on retroflexed examination of the cardia. erosions noted in antrum Duodenum: mild bulbar duodenitis, bx taken Intervention: Biopsies as noted above, COLONOSCOPY Instrument: Olympus variable stiffness pediatric scope 190L Colonoscopy Monitoring: Vital signs and clinical assessment, continuous EKG monitoring, Pulse oximetry, Carbon Dioxide monitoring and blood pressure monitoring were done throughout the procedure. Colon withdrawal time was 10 minutes. Procedure: The patient was placed in the left lateral decubitis position and pre-procedure medications were administered. After a digital rectal examination of the ano-rectum, the video colonoscope was inserted into the rectum and advanced through the colon to the cecum/TI. The colonoscope was slowly withdrawn in a retrograde panoramic fashion and the colon mucosa was carefully examined including a retroflexed view of the rectum. Findings and interventions are described below. Procedure Difficulty:moderate Findings: Terminal Ileum-normal, bx taken random bx taken from right and left colon, rectum in separate jars. Cecum:normal Ascending Colon: normal Transverse Colon -normal Descending Colon:normal Sigmoid Colon: normal Rectum: Retroflexion with small internal hemorrhoids, grade I Anorectum - normal Colon preparation: [place] Bowel Preparation Scale Right colon; 1-2 Transverse colon: 2 Left colon; 1-2 (0 = Unprepared colon segment with mucosa not seen due to solid stool that cannot be cleared. 1 = Portion of mucosa of the colon segment seen, but other areas of the colon segment not well seen due to staining, residual stool and/or opaque liquid. 2 = Minor amount of residual staining, small fragments of stool and/or opaque liquid, but mucosa of colon segment seen well. 3 = Entire mucosa of colon segment seen well with no residual staining, small fragments of stool or opaque liquid) Impression and Post Procedure Diagnosis: Endoscopy Findings: lax LES schatzki ring hiatal hernia erosive gastritis duodenitis Colonoscopy Findings: internal hemorrhoids Plan: Await Pathology results Repeat Colonoscopy in 5 years due to fair prep or earlier if clinically indicated High fiber diet leaflet avoid straining at stool, epsom salts and sitz bath, anusol supps or cream GERD precautions, check if taking PPI Above findings were reviewed with the patient and relevant handouts were provided if indicated.
[2025-02-27 13:17] VITALS: BP 96/44; PULSE 82; RESP 20; TEMP 36.3; O2SAT 97
[2025-02-27 13:28] VITALS: BP 117/52; PULSE 70; RESP 20; TEMP 36.2; O2SAT 97
== END 2025-02-27 14:03 | disposition home or self-care (01) ==
PROVIDERS: PCP Internal Medicine; Visit Provider Internal Medicine Gastroenterology
PROC: (CPT 45380; principal; 2025-02-27 13:20)
DX: K59.03 Drug induced constipation (principal); T40.2X5A Adverse effect of other opioids, initial encounter; K57.30 Diverticulosis of large intestine without perforation or abscess without bleeding; K64.0 First degree hemorrhoids; K58.1 Irritable bowel syndrome with constipation; K21.9 Gastro-esophageal reflux disease without esophagitis; K22.2 Esophageal obstruction; K29.50 Unspecified chronic gastritis without bleeding; K20.80 Other esophagitis without bleeding; K29.80 Duodenitis without bleeding; K44.9 Diaphragmatic hernia without obstruction or gangrene; K86.89 Other specified diseases of pancreas; I10 Essential (primary) hypertension; E11.9 Type 2 diabetes mellitus without complications; R53.83 Other fatigue; E46 Unspecified protein-calorie malnutrition; Z68.29 Body mass index [BMI] 29.0-29.9, adult; Z94.0 Kidney transplant status; L65.9 Nonscarring hair loss, unspecified; Z79.84 Long term (current) use of oral hypoglycemic drugs; Z79.899 Other long term (current) drug therapy; Z79.891 Long term (current) use of opiate analgesic; Z88.5 Allergy status to narcotic agent; Z88.8 Allergy status to other drugs, medicaments and biological substances; Z98.890 Other specified postprocedural states; Z87.891 Personal history of nicotine dependence; Z56.0 Unemployment, unspecified
CPT/HCPCS: 45380; 43239; 82947; 88305; 88313; 88342; J2003; J2704

== ENCOUNTER → 2025-02-27 09:41 | Outpatient (BNV) | payer OTHER, SELFPAY | PROVIDERS: PCP Internal Medicine; Visit Provider Internal Medicine Gastroenterology | DX: R19.4 Change in bowel habit (principal); K64.0 First degree hemorrhoids; K22.4 Dyskinesia of esophagus; K20.90 Esophagitis, unspecified without bleeding; K22.2 Esophageal obstruction; K29.00 Acute gastritis without bleeding; K29.80 Duodenitis without bleeding | CPT/HCPCS: 43239; 45380 ==

== ENCOUNTER 2025-03-06 13:58 | Emergency (ER) | payer OTHER, SELFPAY ==
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
[2025-03-06 14:10] VITALS: BP 138/70; PULSE 70; O2SAT 99
[2025-03-06 14:16] VITALS: BP 158/72; PULSE 67; RESP 24; TEMP 37; O2SAT 97; BMI 23.6
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
--- OUTSIDE RECORDS SUMMARY | 2025-03-06 20:58 | XMS_ITS | Clinical Summary ---
Author Organization [facility], Address [address] [place] [address] [place] [address] Phone Care Team Providers Care Bung Dropper Name Role Phone Jessica Santamaria MD Primary Care Provider [phone] Allergies Active Allergy Reactions Criticality Noted Date [...] (one) time each day 12/06/19 Active Pancrelipase, [id number], (CREON PO) Take by mouth in the [...] Orders Only [facility] [address] [place] [address] Zoe Vásquez, RN History of renal transplant (Primary Dx); History of immunosuppressive therapy; Stage 3b chronic kidney disease (HCC) 02/14/2025 Telephone [facility] [place] [address] [place] [address] Zoe Vásquez, RN 02/09/2025 Telephone [facility] [place] [address] [place] [address] Zoe Vásquez, RN 02/08/2025 4:15 PM EDT Clinical Support [facility] [place] [address] [place] [address] Shavon Ng FNP-C Essential hypertension (Primary Dx); History of renal transplant; History of immunosuppressive therapy; Stage 3a chronic kidney disease (HCC) 02/01/2025 Orders Only [facility] [address] [place] [address] Hiwot Smith MA Kidney replaced by transplant [...] Visit [facility] Access [address] [place] [address] Damian Norris MD 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) 01/23/2025 Documentation Only [facility] [place] [address] [place] [address] Hiwot Smith MA 01/16/2025 Telephone [facility] [address] [place] [address] Antonia Jackson 01/15/2025 10:00 AM EDT Procedure visit [facility] Access [address] [place] [address] Tereso Arrieta MD End stage renal disease (HCC) (Primary Dx); Other mechanical complication of surgically created arteriovenous fistula, initial encounter (HCC) 01/15/2025 Telephone [facility] [address] [place] [address] Katharina Butt 01/12/2025 Telephone [facility] [address] [place] [address] Antonia Jackson 12/11/2024 Orders Only [facility] [address] [place] [address] Hiwot Smith MA Kidney replaced by transplant (Primary Dx); History of renal transplant; History of immunosuppressive therapy; Stage 3a chronic kidney disease (HCC); Hyperlipidemia, not otherwise specified; Type 2 diabetes mellitus without complication (HCC); Other iron deficiency anemia; Other specified hypoparathyroidism (HCC); Albuminuria, not otherwise specified 12/07/2024 Office Communication [facility] [address] [place] [address] Arleen Kingston 12/07/2024 Telephone [facility] [address] [place] [address] Hiwot Smith MA from Last 3 Months [...] Support [facility] [address] [place] [id number] Shavon Ng, VIOLENT CRIMES DETECTIVE-C [address] [place] [address] Health Maintenance Due Date Last Done [...] AM EDT) Hemoglobin A1C 6.4(H) (4.0-5.6) % [facility] Comment: MONITORING: In known diabetic patients, hemoglobin A1c targets should be discussed with health care provider. DIAGNOSTIC USE: The [place] Diabetes Association (ADA) and the World Health [...] Supplement 1 Testing performed or reported by [facility], [place] [address] Tate Pham MD, Ocean Export Coordinator [facility]# [id number] Blood specimen (specimen) Venous blood / Unknown 11/13/2022 9:47 AM EDT 11/13/2022 9:48 AM EDT us Rony [facility] BLOOD ORDERABLES Final Re sult [facility] from Last 3 Months or Most Recently Relevant to Health Maintenance Insurance [id number] [place] [id number] [facility] Medicaid MICHELLE FUENTES [id number] [address] [place] [id number] Care Teams Bung Dropper Relationship Specialty Start Date End Date Jessica Santamaria MD [address] [place], [place] PCP - General 04/04/19
--- OUTSIDE RECORDS SUMMARY | 2025-03-06 20:58 | XMS_ITS | Encounter Summary ---
Author Organization [facility] Address [address] [address] Phone Care Team Providers Care Guide Delegate Name Role Phone Jessica Santamaria MD Primary Care Provider [phone] Reason for Visit * Reason Comments Med Refill Encounter Details Date Type Department Care Team (Late st Contact Info) Description 04/12/2023 Refill [facility], [address] [place] [address] Alvaro Stratton MD [address] [place] [address] Social History Tobacco Use Types [...] Support [facility] [place] [address] [place] [address] hSavon Ng FNP-C [address] [place] [address] documented as of this encounter Visit Diagnoses Not on filedocumented in this encounter Care Teams Guide Delegate Relationship Specialty Start Date End Date Jessica Santamaria MD [address] [place], [place] PCP - General 04/04/19 documented as of this encounter
--- OUTSIDE RECORDS SUMMARY | 2025-03-06 20:58 | XMS_ITS | Encounter Summary ---
Author Organization [facility] [place], Address [address] [place] [address] Phone Care Team Providers Care Carpenter Bridge Name Role Phone Jessica Santamaria MD Primary Care Provider [phone] Reason for Visit * Reason Comments Med Refill Encounter Details Date Type Department Care Team (Late st Contact Info) Description 06/11/2021 Refill [facility] [address] [place] [address] Rony Donato PA [address] [place] [address] [place] [address] Social History Tobacco Use Types [...] Clinical Support [facility] [address] [place] [address] Shavon Ng FNP-C [address] [place] [address] documented as of this encounter Visit Diagnoses Not on filedocumented in this encounter Care Teams Carpenter Bridge Relationship Specialty Start Date End Date Jessica Santamaria MD [address] [place], [place] PCP - General 04/04/19 documented as of this encounter
--- OUTSIDE RECORDS SUMMARY | 2025-03-06 20:58 | XMS_ITS | Encounter Summary ---
Author Organization [facility] Address [address] [place] [address] Phone Care Team Providers Care Tension Worker Name Role Phone Jesscia Santamaria MD Primary Care Provider [phone] Encounter Details Date Type Department Care Team (Late Contact Info) Description 06/30/2024 Documentation Only [facility] [place], [address] [place] [address] Hiwot Smith[place]ON[place], [place] [address] [place] [address] Social History Tobacco Use Types [...] Support [facility] [place] [address] [place] [address] Shavon Ng FNP-C [address] [place] [address] documented as of this encounter Visit Diagnoses Not on filedocumented in this encounter Care Teams Tension Worker Relationship Specialty Start Date End Date Jessica Santamaria MD [address] [place], [place] PCP - General 04/04/19 documented as of this encounter
--- OUTSIDE RECORDS SUMMARY | 2025-03-06 20:58 | XMS_ITS | Encounter Summary ---
Author Organization [facility] [place], Address [address] [address] Phone Care Team Providers Care Geopolitics Teacher Name Role Phone Jessica Santamaria MD Primary Care Provider Reason for Visit * Reason Comments Med Refill Encounter Details Date Type Department Care Team (Late st Contact Info) Description 07/13/2022 Refill [facility] [address] [place] [address] Alvaro Stratton MD [address] [place] [address] [place] [address] Social History Tobacco Use Types [...] Support [facility] [address] [place] [address] Shavon Ng FNP-C [address] [place] [address] documented as of this encounter Visit Diagnoses Not on filedocumented in this encounter Care Teams Geopolitics Teacher Relationship Specialty Start Date End Date Jessica Santamaria MD [address] [place], [place] PCP - General 04/04/19 documented as of this encounter
--- OUTSIDE RECORDS SUMMARY | 2025-03-06 20:58 | XMS_ITS | Encounter Summary ---
Author Organization [facility] Address [address] [place] [address] Phone Care Team Providers Care Billboard Installer Name Role Phone Jessica Santamaria MD Primary Care Provider [phone] Encounter Details Date Type Department Care Team (Late Contact Info) Description 09/20/2023 Documentation Only [facility] [place], [address] [place] [address] [place], [place] [address] [place] [address] Social History Tobacco Use Types [...] Support [facility] [place] [address] [place] [address] Shavon Ng FNP-C [address] [place] [address] documented as of this encounter Visit Diagnoses Not on filedocumented in this encounter Care Teams Billboard Installer Relationship Specialty Start Date End Date Jessica Santamaria MD [address] [place], [place] PCP - General 04/04/19 documented as of this encounter
--- OUTSIDE RECORDS SUMMARY | 2025-03-06 20:58 | XMS_ITS | Encounter Summary ---
Author Organization [facility] Address [address] [place] [address] Phone Care Team Providers Care Assembler Knife Name Role Phone Jessica Santamaria MD Primary Care Provider [phone] Encounter Details Date Type Department Care Team (Late st Contact Info) Description 09/15/2024 Telephone [facility] [address] [place] [place] [address] Karyn Ross Social History Tobacco [...] tender and painful. Please return the call [phone] - thank you documented in this encounter Plan of Treatment Upcoming Encounters Date Type Department Care Team (Late st Contact Info) Description 04/05/2025 2:00 PM EST Clinical Support [facility] [address] [place] [address] Shavon Ng, VISUAL ASSOCIATE-C [address] [address] documented as of this encounter Visit Diagnoses Not on filedocumented in this encounter Care Teams Assembler Knife Relationship Specialty Start Date End Date Jessica Santamaria MD [address] [place] [address] PCP - General 04/04/19 documented as of this encounter
--- OUTSIDE RECORDS SUMMARY | 2025-03-06 20:58 | XMS_ITS | Encounter Summary ---
Author Organization [facility] Address [address] [place] [address] Phone Care Team Providers Care Dramatic Coach Name Role Phone Jessica Santamaria MD Primary Care Provider [phone] Encounter Details Date Type Department Care Team (Late Contact Info) Description 06/30/2024 Documentation Only [facility] [place], [address] [place] [address] [place] [address] [place] [address] Social History Tobacco Use Types [...] Support [facility] [place] [address] [place] [address] Shavon Ng FNP-C [address] [place] [address] documented as of this encounter Visit Diagnoses Not on filedocumented in this encounter Care Teams Dramatic Coach Relationship Specialty Start Date End Date Jessica Santamaria MD [address] [place], [place] PCP - General 04/04/19 documented as of this encounter
--- OUTSIDE RECORDS SUMMARY | 2025-03-06 20:58 | XMS_ITS | Encounter Summary ---
Author Organization [facility] Address [address] [place] [address] Phone Care Team Providers Care Radio Personality Name Role Phone Jessica Santamaria MD Primary Care Provider [phone] Encounter Details Date Type Department Care Team (Late Contact Info) Description 09/28/2023 Documentation Only [facility] [place], [address] [place] [address] [place], [place] [address] [place] [address] Social History Tobacco Use Types [...] Support [facility] [place] [address] [place] [address] Shavon Ng FNP-C [address] [place] [address] documented as of this encounter Visit Diagnoses Not on filedocumented in this encounter Care Teams Radio Personality Relationship Specialty Start Date End Date Jessica Santamaria MD [address] [place], [place] PCP - General 04/04/19 documented as of this encounter
--- OUTSIDE RECORDS SUMMARY | 2025-03-06 20:58 | XMS_ITS | Encounter Summary ---
Author Organization [facility] [place], Address [address] [place] [address] Phone Care Team Providers Care Deboner Name Role Phone Jessica Santamaria MD Primary Care Provider [phone] Reason for Visit * Reason Comments Med Refill Encounter Details Date Type Department Care Team (Late st Contact Info) Description 07/20/2023 Refill [facility] [address] [place] [address] Rony Donato PA [address] [place] [address] [place] [address] Social History Tobacco Use Types Packs/Day [...] & Transplant Services [facility] [address] [place] [address] Shavon Ng FNP-C [address] [place] [address] documented as of this encounter Visit Diagnoses Not on filedocumented in this encounter Care Teams Deboner Relationship Specialty Start Date End Date Jessica Santamaria MD [address] [place], [place] PCP - General 04/04/19 documented as of this encounter
--- OUTSIDE RECORDS SUMMARY | 2025-03-06 20:58 | XMS_ITS | Encounter Summary ---
Author Organization [facility] Address [address] [place] [address] Phone Care Team Providers Care Prizer Hand Name Role Phone Jessica Santamaria MD Primary Care Provider Encounter Details Date Type Department Care Team (Late Contact Info) Description 09/20/2023 Documentation Only [facility] [place], [address] [place] [address] [place], [place] [address] [place] [address] Social History Tobacco Use Types [...] [facility] [place] [address] [place] [address] Shavon Ng FNP-C [address] [place] [address] documented as of this encounter Visit Diagnoses Not on filedocumented in this encounter Care Teams Prizer Hand Relationship Specialty Start Date End Date Jessica Santamaria MD [address] [place], [place] PCP - General 04/04/19 documented as of this encounter
--- OUTSIDE RECORDS SUMMARY | 2025-03-06 20:58 | XMS_ITS | Encounter Summary ---
Author Organization [facility] [place], Address [address] [place] [address] Phone Care Team Providers Care Engineering Analyst Name Role Phone Jessica Santamaria MD Primary Care Provider [phone] Reason for Visit * Reason Comments Med Refill Encounter Details Date Type Department Care Team (Late st Contact Info) Description 06/23/2021 Refill [facility] [address] [place] [address] Rony Donato PA [address] [place] [address] [place] [address] Social History Tobacco Use Types [...] Clinical Support [facility] [address] [place] [address] Shavon Ng FNP-C [address] [place] [address] documented as of this encounter Visit Diagnoses Not on filedocumented in this encounter Care Teams Engineering Analyst Relationship Specialty Start Date End Date Jessica Santamaria MD [address] [place], [place] PCP - General 04/04/19 documented as of this encounter
--- OUTSIDE RECORDS SUMMARY | 2025-03-06 20:58 | XMS_ITS | Encounter Summary ---
Author Organization [facility] [place], Address [address] [place] [address] Phone Care Team Providers Care Social Organization Professor Name Role Phone Jessica Santamaria MD Primary Care Provider [phone] Reason for Visit * Reason Comments Med Refill Encounter Details Date Type Department Care Team (Late st Contact Info) Description 06/23/2022 Refill [facility] [address] [place] [address] Rony Donato PA [address] [place] [address] [place] [address] Social History Tobacco Use Types [...] Clinical Support [facility] [address] [place] [address] Shavon Ng FNP-C [address] [place] [address] documented as of this encounter Visit Diagnoses Not on filedocumented in this encounter Care Teams Social Organization Professor Relationship Specialty Start Date End Date Jessica Santamaria MD [address] [place], [place] PCP - General 04/04/19 documented as of this encounter
--- OUTSIDE RECORDS SUMMARY | 2025-03-06 20:58 | XMS_ITS | Encounter Summary ---
Author Organization [facility] Address [address] [place] [address] Phone Care Team Providers Care Dietary Services Manager Name Role Phone Jessica Santamaria MD Primary Care Provider [phone] Encounter Details Date Type Department Care Team (Late Contact Info) Description 08/20/2023 Documentation Only [facility] [place], [address] [place] [address] [place], [place] [address] [place] [address] Social History Tobacco Use Types [...] Support [facility] [place] [address] [place] [address] Shavon Ng FNP-C [address] [place] [place] [address] documented as of this encounter Visit Diagnoses Not on filedocumented in this encounter Care Teams Dietary Services Manager Relationship Specialty Start Date End Date Jessica Santamaria MD [address] [place], [place] PCP - General 04/04/19 documented as of this encounter
--- OUTSIDE RECORDS SUMMARY | 2025-03-06 20:58 | XMS_ITS | Encounter Summary ---
Author Organization [facility] Address [address] [place] [address] Phone Care Team Providers Care Utility Gelatin Maker Name Role Phone Jessica Santamaria MD Primary Care Provider [phone] Encounter Details Date Type Department Care Team (Late Contact Info) Description 01/23/2025 Documentation Only [facility] [place], [address] [place] [address] [place], [place] [address] [place] [address] Social History Tobacco Use Types [...] Support [facility] [place] [address] [place] [address] Shavon Ng FNP-C [address] [place] [address] documented as of this encounter Visit Diagnoses Not on filedocumented in this encounter Care Teams Utility Gelatin Maker Relationship Specialty Start Date End Date Jessica Santamaria MD [address] [place], [place] PCP - General 04/04/19 documented as of this encounter
--- OUTSIDE RECORDS SUMMARY | 2025-03-06 20:58 | XMS_ITS | Encounter Summary ---
Author Organization [facility] Address [address] [place] [address] Phone Care Team Providers Care Manufacture Specialist Name Role Phone Jessica Santamaria MD Primary Care Provider Encounter Details Date Type Department Care Team (Late Contact Info) Description 02/16/2024 Documentation Only [facility] [place], [address] [place] [address] [place], [place] [address] [place] [address] Social History Tobacco Use Types [...] Support [facility] [place] [address] [place] [address] Shavon Ng FNP-C [address] [place] [address] documented as of this encounter Visit Diagnoses Not on filedocumented in this encounter Care Teams Manufacture Specialist Relationship Specialty Start Date End Date Jessica Santamaria MD [address] [place], [place] PCP - General 04/04/19 documented as of this encounter
--- OUTSIDE RECORDS SUMMARY | 2025-03-06 20:58 | XMS_ITS | Encounter Summary ---
Author Organization [facility] Address [address] [place] [address] Phone Care Team Providers Care Java Analyst Name Role Phone Jessica Santamaria MD Primary Care Provider [phone] Encounter Details Date Type Department Care Team (Late Contact Info) Description 09/18/2024 Documentation Only [facility] [place], [address] [place] [address] [place], [place] [address] [place] [address] Social History [...] Support [facility] [place] [address] [place] [address] Shavon Ng FNP-C [address] [place] [address] documented as of this encounter Visit Diagnoses Not on filedocumented in this encounter Care Teams Java Analyst Relationship Specialty Start Date End Date Jessica Santamaria MD [address] [place], [place] PCP - General 04/04/19 documented as of this encounter
--- OUTSIDE RECORDS SUMMARY | 2025-03-06 20:58 | XMS_ITS | Encounter Summary ---
Author Organization [facility] [place], Address [address] [place] [address] Phone Care Team Providers Care Equity Manager Name Role Phone Jessica Santamaria MD Primary Care Provider [phone] Reason for Visit * Reason Comments Med Refill Encounter Details Date Type Department Care Team (Late st Contact Info) Description 08/24/2022 Refill [facility] [address] [place] [address] Rony Donato PA [address] [place] [address] [place] [address] Social History Tobacco Use Types Packs/Day [...] Clinical Support [facility] [address] [address] Shavon Ng FNP-C [address] [address] documented as of this encounter Visit Diagnoses Not on filedocumented in this encounter Care Teams Equity Manager Relationship Specialty Start Date End Date Jessica Santamaria MD [address] [place], [place] PCP - General 04/04/19 documented as of this encounter
--- OUTSIDE RECORDS SUMMARY | 2025-03-06 20:58 | XMS_ITS | Encounter Summary ---
Author Organization [facility] Address [address] [place] [address] Phone Care Team Providers Care Field Staff Name Role Phone Jessica Santamaria MD Primary Care Provider [phone] Encounter Details Date Type Department Care Team (Late Contact Info) Description 11/18/2023 Documentation Only [facility] [place], [address] [place] [address] [place], [place] [address] [place] [address] Social History Tobacco Use Types [...] Support [facility] [place] [address] [place] [address] Shavon Ng FNP-C [address] [place] [address] documented as of this encounter Visit Diagnoses Not on filedocumented in this encounter Care Teams Field Staff Relationship Specialty Start Date End Date Jessica Santamaria MD [address] [place], [place] PCP - General 04/04/19 documented as of this encounter
--- OUTSIDE RECORDS SUMMARY | 2025-03-06 20:58 | XMS_ITS | Encounter Summary ---
Author Organization [facility] Address [address] [place] [address] Phone Care Team Providers Care Double End Chucking Machine Operator Name Role Phone Jessica Santamaria MD Primary Care Provider [phone] Encounter Details Date Type Department Care Team (Late Contact Info) Description 09/27/2024 Documentation Only [facility] [place], [address] [place] [address] [place], [place] [address] [place] [address] Social History Tobacco Use Types [...] Support [facility] [place] [address] [place] [address] Shavon Ng FNP-C [address] [place] [address] documented as of this encounter Visit Diagnoses Not on filedocumented in this encounter Care Teams Double End Chucking Machine Operator Relationship Specialty Start Date End Date Jessica Santamaria MD [address] [place], [place] PCP - General 04/04/19 documented as of this encounter
--- OUTSIDE RECORDS SUMMARY | 2025-03-06 20:58 | XMS_ITS | Encounter Summary ---
Author Organization [facility] [place], Address [address] [place] [address] Phone Care Team Providers Care Gas Maker Name Role Phone Jessica Santamaria MD Primary Care Provider [phone] Reason for Visit * Reason Comments Med Refill Encounter Details Date Type Department Care Team (Late st Contact Info) Description 04/16/2022 Refill [facility] [address] [place] [address] Rony Donato PA [address] [place] [address] [place] [address] Social History Tobacco Use Types [...] [facility] Of [address] [place] [address] Shavon Ng FNP-C [address] [place] [address] [place] [address] documented as of this encounter Visit Diagnoses Not on filedocumented in this encounter Care Teams Gas Maker Relationship Specialty Start Date End Date Jessica Santamaria MD [address] [place], [place] PCP - General 04/04/19 documented as of this encounter
--- OUTSIDE RECORDS SUMMARY | 2025-03-06 20:58 | XMS_ITS | Encounter Summary ---
Author Organization [facility] Address [address] [address] Phone Care Team Providers Care Park Ranger Name Role Phone Jessica Santamaria MD Primary Care Provider [phone] Encounter Details Date Type Department Care Team (Late Contact Info) Description 04/28/2024 Documentation Only [facility] [place], [address] [place] [address] [place], [place] [address] [place] [address] Social History Tobacco Use Types [...] Support [facility] [place] [address] [place] [address] Shavon Ng FNP-C [address] [place] [address] documented as of this encounter Visit Diagnoses Not on filedocumented in this encounter Care Teams Park Ranger Relationship Specialty Start Date End Date Jessica Santamaria MD [address] [place], [place] PCP - General 04/04/19 documented as of this encounter
--- OUTSIDE RECORDS SUMMARY | 2025-03-06 20:58 | XMS_ITS | Encounter Summary ---
Author Organization [facility] Address [address] [place] [address] Phone Care Team Providers Care Superintendent Menagerie Name Role Phone Jessica Santamaria MD Primary Care Provider Encounter Details Date Type Department Care Team (Late Contact Info) Description 10/05/2023 Documentation Only [facility] [place], [address] [place] [place] [address] [place], [place] [address] [place] [address] Social History Tobacco Use Types [...] [facility] [place] [address] [place] [address] Shavon Ng FNP-C [address] [address] documented as of this encounter Visit Diagnoses Not on filedocumented in this encounter Care Teams Superintendent Menagerie Relationship Specialty Start Date End Date Jessica Santamaria MD [address] [place], [place] PCP - General 04/04/19 documented as of this encounter
--- OUTSIDE RECORDS SUMMARY | 2025-03-06 20:58 | XMS_ITS | Encounter Summary ---
Author Organization [facility] [place], Address [address] [place] [address] Phone Care Team Providers Care Fuse Coiler Name Role Phone Jessica Santamaria MD Primary Care Provider Reason for Visit * Reason Comments Med Refill Encounter Details Date Type Department Care Team (Late st Contact Info) Description 06/20/2021 Refill [facility] [address] [place] [address] Rony Donato PA [address] [place] [address] [place] [address] Social History Tobacco Use Types [...] Clinical Support [facility] [address] [place] [address] Shavon Ng FNP-C [address] [place] [address] documented as of this encounter Visit Diagnoses Not on filedocumented in this encounter Care Teams Fuse Coiler Relationship Specialty Start Date End Date Jessica Santamaria MD [address] [place], [place] PCP - General 04/04/19 documented as of this encounter
--- OUTSIDE RECORDS SUMMARY | 2025-03-06 20:58 | XMS_ITS | Encounter Summary ---
Author Organization [facility] Address [address] [place] [address] Phone Care Team Providers Care Doll Dresser Name Role Phone Jessica Santamaria MD Primary Care Provider [phone] Encounter Details Date Type Department Care Team (Late Contact Info) Description 09/18/2024 Documentation Only [facility] [place], [address] [place] [address] [place], [place] [address] [place] [address] Social History Tobacco Use Types [...] Support [facility] [place] [address] [place] [address] Shavon Ng FNP-C [address] [place] [address] documented as of this encounter Visit Diagnoses Not on filedocumented in this encounter Care Teams Doll Dresser Relationship Specialty Start Date End Date Jessica Santamaria MD [address] [place], [place] PCP - General 04/04/19 documented as of this encounter
[2025-03-06 21:09] VITALS: BP 129/57; PULSE 74; RESP 20; TEMP 37.3; O2SAT 98
[2025-03-06] MEDS: oxyCODONE HCl Immed Release 5 MG TABLET PO (21:13)
[2025-03-06 22:30] VITALS: BP 152/68; PULSE 74; RESP 16; TEMP 37.4; O2SAT 99
== END 2025-03-06 22:30 | disposition home or self-care (01) ==
PROVIDERS: Emergency Provider Emergency Medicine; PCP Internal Medicine
DX: S92.351A Displaced fracture of fifth metatarsal bone, right foot, initial encounter for closed fracture (principal); S50.812A Abrasion of left forearm, initial encounter; S90.414A Abrasion, right lesser toe(s), initial encounter; M79.671 Pain in right foot; M25.512 Pain in left shoulder; M25.511 Pain in right shoulder; R07.89 Other chest pain; V13.4XXA Pedal cycle driver injured in collision with car, pick-up truck or van in traffic accident, initial encounter; Y93.55 Activity, bike riding; Y92.410 Unspecified street and highway as the place of occurrence of the external cause; Y99.8 Other external cause status; Z87.891 Personal history of nicotine dependence; Z79.899 Other long term (current) drug therapy
CPT/HCPCS: 71045; 73030; 73090; 73610; 73630; 99283

== ENCOUNTER → 2025-03-06 14:45 | Outpatient (BNV) | payer OTHER, SELFPAY | PROVIDERS: Visit Provider Radiology Diagnostic Radiology | DX: M25.511 Pain in right shoulder (principal); M25.512 Pain in left shoulder; R07.89 Other chest pain; S92.352A Displaced fracture of fifth metatarsal bone, left foot, initial encounter for closed fracture; S50.812A Abrasion of left forearm, initial encounter; V01.90XA Pedestrian on foot injured in collision with pedal cycle, unspecified whether traffic or nontraffic accident, initial encounter | CPT/HCPCS: 71045; 73030; 73090; 73610; 73630 ==

== ENCOUNTER 2025-03-12 11:01 | Outpatient (REF) | payer OTHER, SELFPAY ==
--- OUTSIDE RECORDS SUMMARY | 2025-03-12 11:09 | XMS_ITS | Encounter Summary ---
Author Organization [facility] Address [address] [place] [address] Phone Care Team Providers Care Protection Chief Industrial Plant Name Role Phone Jessica Santamaria MD Primary Care Provider [phone] Encounter Details Date Type Department Care Team (Late Contact Info) Description 06/30/2024 Documentation Only [facility] [place], [address] [place] [address] [place], [place] [address] [place] [address] Social History Tobacco Use Types [...] Support [facility] [place] [address] [place] [address] Shavon Ng FNP-C [address] [place] [place] [address] documented as of this encounter Visit Diagnoses Not on filedocumented in this encounter Care Teams Protection Chief Industrial Plant Relationship Specialty Start Date End Date Jessica Santamaria MD [address] [place], [place] PCP - General 04/04/19 documented as of this encounter
--- OUTSIDE RECORDS SUMMARY | 2025-03-12 11:09 | XMS_ITS | Encounter Summary ---
Author Organization [facility] Address [address] [place] [address] Phone Care Team Providers Care Plumbing Mechanic Name Role Phone Jessica Santamaria MD Primary Care Provider [phone] Encounter Details Date Type Department Care Team (Late Contact Info) Description 09/18/2024 Documentation Only [facility] [place], [address] [place] [address] [place], [place] [address] [place] [address] Social History Tobacco Use Types [...] Support [facility] [place] [address] [place] [address] Shavon Ng FNP-C [address] [place] [place] [address] documented as of this encounter Visit Diagnoses Not on filedocumented in this encounter Care Teams Plumbing Mechanic Relationship Specialty Start Date End Date Jessica Santamaria MD [address] [place], [place] PCP - General 04/04/19 documented as of this encounter
--- OUTSIDE RECORDS SUMMARY | 2025-03-12 11:09 | XMS_ITS | Encounter Summary ---
Author Organization [facility] Address [address] [place] [address] Phone Care Team Providers Care Zinc Chloride Operator Name Role Phone Jessica Santamaria MD Primary Care Provider [phone] Encounter Details Date Type Department Care Team (Late Contact Info) Description 06/30/2024 Documentation Only [facility] [place], [address] [place] [address] [place], [place] [address] [place] [address] Social History Tobacco Use Types [...] Support [facility] [place] [address] [place] [address] Shavon Ng FNP-C [address] [place] [address] documented as of this encounter Visit Diagnoses Not on filedocumented in this encounter Care Teams Zinc Chloride Operator Relationship Specialty Start Date End Date Jessica Santamaria MD [address] [place], [place] PCP - General 04/04/19 documented as of this encounter
--- OUTSIDE RECORDS SUMMARY | 2025-03-12 11:10 | XMS_ITS | Encounter Summary ---
Author Organization [facility] [place], Address [address] [place] [address] Phone Care Team Providers Care Glove Turner And Former Automatic Name Role Phone Jessica Santamaria MD Primary Care Provider [phone] Reason for Visit * Reason Comments Med Refill Encounter Details Date Type Department Care Team (Late st Contact Info) Description 04/16/2022 Refill [facility] [address] [place] [address] Rony Donato PA [address] [place] [address] [place] [address] Social History Tobacco Use Types [...] Support [facility] Of [address] [place] [address] Shavon Ng FNP-C [address] [place] [address] [place] [address] documented as of this encounter Visit Diagnoses Not on filedocumented in this encounter Care Teams Glove Turner And Former Automatic Relationship Specialty Start Date End Date Jessica Santamaria MD [address] [place], [place] PCP - General 04/04/19 documented as of this encounter
--- OUTSIDE RECORDS SUMMARY | 2025-03-12 11:10 | XMS_ITS | Encounter Summary ---
Author Organization [facility] [place], Address [address] [place] [address] Phone Care Team Providers Care Earthmoving Plant Operator Name Role Phone Jessica Santamaria MD Primary Care Provider [phone] Reason for Visit * Reason Comments Med Refill Encounter Details Date Type Department Care Team (Late st Contact Info) Description 06/23/2021 Refill [facility] [address] [place] [address] Rony Donato PA [address] [place] [address] [place] [address] Social History Tobacco Use Types [...] Services [facility] [address] [place] [place] [address] Shavon Ng FNP-C [address] [place] [place] [address] documented as of this encounter Visit Diagnoses Not on filedocumented in this encounter Care Teams Earthmoving Plant Operator Relationship Specialty Start Date End Date Jessica Santamaria MD [address] [place], [place] PCP - General 04/04/19 documented as of this encounter
--- OUTSIDE RECORDS SUMMARY | 2025-03-12 11:10 | XMS_ITS | Encounter Summary ---
Author Organization [facility] Address [address] [place] [address] Phone Care Team Providers Care Safety Investigator/Cause Analyst Name Role Phone Jessica Santamaria MD Primary Care Provider [phone] Encounter Details Date Type Department Care Team (Late Contact Info) Description 01/23/2025 Documentation Only [facility] [place], [address] [place] [address] [place], [place] [address] [place] [address] Social History Tobacco Use Types [...] Support [facility] [place] [address] [place] [address] Shavon Ng FNP-C [address] [place] [address] documented as of this encounter Visit Diagnoses Not on filedocumented in this encounter Care Teams Safety Investigator/Cause Analyst Relationship Specialty Start Date End Date Jessica Santamaria MD [address] [place], [place] PCP - General 04/04/19 documented as of this encounter
--- OUTSIDE RECORDS SUMMARY | 2025-03-12 11:10 | XMS_ITS | Encounter Summary ---
Author Organization [facility], Address [address] [address] Phone Care Team Providers Care Teletypesetter Operator Name Role Phone Jessica Santamaria MD Primary Care Provider [phone] Reason for Visit * Reason Comments Med Refill Encounter Details Date Type Department Care Team (Late st Contact Info) Description 07/13/2022 Refill [facility] [address] [place] [address] Alvaro Stratton MD [address] [place] [address] [place] [address] Social History Tobacco Use Types [...] Clinical Support [facility] [address] [place] [address] Shavon Ng FNP-C [address] [place] [address] documented as of this encounter Visit Diagnoses Not on filedocumented in this encounter Care Teams Teletypesetter Operator Relationship Specialty Start Date End Date Jessica Santamaria MD [address] [place], [place] PCP - General 04/04/19 documented as of this encounter
--- OUTSIDE RECORDS SUMMARY | 2025-03-12 11:10 | XMS_ITS | Encounter Summary ---
Author Organization [facility] Address [address] [place] [address] Phone Care Team Providers Care Rail Layer Name Role Phone Jessica Santamaria MD Primary Care Provider [phone] Encounter Details Date Type Department Care Team (Late Contact Info) Description 11/18/2023 Documentation Only [facility] [place], [address] [place] [place] [address] [place], [place] [address] [place] [address] Social History Tobacco Use Types [...] [facility] [place] [address] [place] [address] Shavon Ng FNP-C [address] [place] [address] documented as of this encounter Visit Diagnoses Not on filedocumented in this encounter Care Teams Rail Layer Relationship Specialty Start Date End Date Jessica Santamaria MD [address] [place], [place] PCP - General 04/04/19 documented as of this encounter
--- OUTSIDE RECORDS SUMMARY | 2025-03-12 11:10 | XMS_ITS | Encounter Summary ---
Author Organization [facility] Address [address] [place] [address] Phone Care Team Providers Care Freight Brake Operator Name Role Phone Jessica Santamaria MD Primary Care Provider [phone] Encounter Details Date Type Department Care Team (Late Contact Info) Description 09/27/2024 Documentation Only [facility] [place], [address] [place] [address] [place], [place] [address] [place] [address] Social History Tobacco Use Types [...] Support [facility] [place] [address] [place] [address] Shavon Ng FNP-C [address] [place] [place] [address] documented as of this encounter Visit Diagnoses Not on filedocumented in this encounter Care Teams Freight Brake Operator Relationship Specialty Start Date End Date Jessica Santamaria MD [address] [place], [place] PCP - General 04/04/19 documented as of this encounter
--- OUTSIDE RECORDS SUMMARY | 2025-03-12 11:10 | XMS_ITS | Encounter Summary ---
Author Organization [facility] Address [address] [place] [address] Phone Care Team Providers Care Hydroponics Worker Name Role Phone Jessica Santamaria MD Primary Care Provider [phone] Encounter Details Date Type Department Care Team (Late Contact Info) Description 09/18/2024 Documentation Only [facility] [place], [address] [place] [address] [place], [place] [address] [place] [address] Social History Tobacco Use Types [...] Support [facility] [place] [address] [place] [address] Shavon Ng FNP-C [address] [place] [address] documented as of this encounter Visit Diagnoses Not on filedocumented in this encounter Care Teams Hydroponics Worker Relationship Specialty Start Date End Date Jessica Santamaria MD [address] [place], [place] PCP - General 04/04/19 documented as of this encounter
--- OUTSIDE RECORDS SUMMARY | 2025-03-12 11:10 | XMS_ITS | Encounter Summary ---
Author Organization [facility] Address [address] [place] [address] Phone Care Team Providers Care Riveter Portable Machine Name Role Phone Jessica Santamaria MD Primary Care Provider [phone] Encounter Details Date Type Department Care Team (Late Contact Info) Description 10/05/2023 Documentation Only [facility] [place], [address] [address] [place], [place] [address] [place] [address] Social History Tobacco Use Types [...] Support [facility] [place] [address] [place] [address] Shavon Ng FNP-C [address] [place] [address] documented as of this encounter Visit Diagnoses Not on filedocumented in this encounter Care Teams Riveter Portable Machine Relationship Specialty Start Date End Date Jessica Santamaria MD [address] [place], [place] PCP - General 04/04/19 documented as of this encounter
--- OUTSIDE RECORDS SUMMARY | 2025-03-12 11:10 | XMS_ITS | Encounter Summary ---
Author Organization [facility] Address [address] [place] [address] Phone Care Team Providers Care Crystalizer Operator Name Role Phone Jessica Santamaria MD Primary Care Provider [phone] Encounter Details Date Type Department Care Team (Late Contact Info) Description 09/28/2023 Documentation Only [facility] [place], [address] [place] [address] [place], [place] [address] [place] [address] Social History Tobacco Use Types [...] Support [facility] [place] [address] [place] [address] Shavon Ng FNP-C [address] [place] [address] documented as of this encounter Visit Diagnoses Not on filedocumented in this encounter Care Teams Crystalizer Operator Relationship Specialty Start Date End Date Jessica Santamaria MD [address] [place], [place] PCP - General 04/04/19 documented as of this encounter
--- OUTSIDE RECORDS SUMMARY | 2025-03-12 11:10 | XMS_ITS | Encounter Summary ---
Author Organization [facility] Address [address] [place] [address] Phone Care Team Providers Care Cleat Blanker Name Role Phone Jessica Santamaria MD Primary Care Provider [phone] Encounter Details Date Type Department Care Team (Late Contact Info) Description 09/20/2023 Documentation Only [facility] [place], [address] [place] [address] [place], [place] [address] [place] [address] Social History Tobacco Use Types [...] [facility] [place] [address] [place] [address] Shavon Ng FNP-C [address] [place] [address] documented as of this encounter Visit Diagnoses Not on filedocumented in this encounter Care Teams Cleat Blanker Relationship Specialty Start Date End Date Jessica Santamaria MD [address] [place], [place] PCP - General 04/04/19 documented as of this encounter
--- OUTSIDE RECORDS SUMMARY | 2025-03-12 11:10 | XMS_ITS | Encounter Summary ---
Author Organization [facility] Address [address] [place] [address] Phone Care Team Providers Care Pin Sticker Name Role Phone Jessica Santamaria MD Primary Care Provider [phone] Encounter Details Date Type Department Care Team (Late Contact Info) Description 04/28/2024 Documentation Only [facility] [place], [address] [place] [address] [place], [place] [address] [place] [address] Social History Tobacco Use Types [...] Support [facility] [place] [address] [place] [address] Shavon Ng FNP-C [address] [place] [place] [address] documented as of this encounter Visit Diagnoses Not on filedocumented in this encounter Care Teams Pin Sticker Relationship Specialty Start Date End Date Jessica Santamaria MD [address] [place], [place] PCP - General 04/04/19 documented as of this encounter
--- OUTSIDE RECORDS SUMMARY | 2025-03-12 11:10 | XMS_ITS | Encounter Summary ---
Author Organization [facility] [place], Address [address] [place] [address] Phone Care Team Providers Care Clerk Analyst Name Role Phone Jessica Santamaria MD Primary Care Provider [phone] Reason for Visit * Reason Comments Med Refill Encounter Details Date Type Department Care Team (Late st Contact Info) Description 06/11/2021 Refill [facility] [address] [place] [address] Rony Donato PA [address] [place] [address] [place] [address] Social History Tobacco Use Types [...] [facility] [address] [place] [address] Shavon Ng FNP-C [address] [place] [address] documented as of this encounter Visit Diagnoses Not on filedocumented in this encounter Care Teams Clerk Analyst Relationship Specialty Start Date End Date Jessica Santamaria MD [address] [place], [place] PCP - General 04/04/19 documented as of this encounter
--- OUTSIDE RECORDS SUMMARY | 2025-03-12 11:10 | XMS_ITS | Clinical Summary ---
Author Organization [facility] [place], Address [address] [place] [address] [place] [address] Phone Care Team Providers Care Stuntman Name Role Phone Jessica Santamaria MD Primary Care Provider [phone] Allergies Active Allergy Reactions Criticality Noted Date [...] times a day if needed 1 Active labetalol (NORMODYNE) 200 MG tablet [...] chew, or split. 30 tablet 11 4 Active Farxiga 10 MG tablet TAKE [...] evening. 180 tablet 11 5 026 Active calcitriol (ROCALTROL) 0.25 MCG capsule TAKE 1 CAPSULE BY MOUTH 3 TIMES PER WEEK 36 capsule 3 5 Active acetaminophen (Tylenol) 325 MG tablet Take 650 mg by mouth every 4 (four) hours if needed 8 Active bisacodyl (DULCOLAX) 10 MG suppository Insert 10 mg into the rectum if needed for constipation 8 Active Ferrous Fumarate 325 (106 Fe) MG tablet Take 325 mg by mouth 1 (one) time each day 0 Active fluticasone (Flonase Allergy Relief) 50 MCG/ACT nasal spray Daily, 0 Refills, Maintenance, 08/10/18 9:55:03 AM EDT 9 Active Tradjenta 5 MG tablet Take 1 tablet by mouth 1 (one) time each day 5 Active Pancrelipase, Bqi-Ajpw-Nvwa, (CREON PO) Take by mouth in the morning and at noon and in the evening. Take with meals. 0 Active sodium bicarbonate 650 MG tablet Take 650 mg by mouth in the morning and 650 mg in the evening. 9 Active NIFEdipine XL (PROCARDIA XL) 30 MG 24 hr tabletIndication s:Essential hypertension Take 1 tablet (30 mg total) by mouth 1 (one) time each day Do not crush, chew, or split. 30 tablet 11 5 026 Active Active Problems Problem Noted Date Diagnosed Date Stage 3a chronic kidney disease 06/16/2023 Obese class I 11/12/2022 Neuropathy 12/16/2021 Type 2 diabetes mellitus without complication 05 /08/2021 Lumbar radiculopathy 07/30/2021 Insomnia 07/30/2021 Tinea versicolor [...] Orders Only [facility] [address] [place] [address] Zoe Vásquez, RN History of renal transplant (Primary Dx); History of immunosuppressive therapy; Stage 3b chronic kidney disease (HCC) 02/14/2025 Telephone [facility] [address] [place] [address] Zoe Vásquez, ANABELL 02/09/2025 Telephone [facility] [address] [place] [address] Zoe Vásquez, ANABELL 02/08/2025 4:15 PM EDT Clinical Support [facility] [address] [place] [address] Shavon Ng FNP-C Essential hypertension (Primary Dx); History of renal transplant; History of immunosuppressive therapy; Stage 3a chronic kidney disease (HCC) 02/01/2025 Orders Only [facility] [address] [place] [address] Hiwot Smith [place] Kidney replaced by transplant [...] Services Of [facility] [address] [place] [address] Damian Norris MD 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) 01/23/2025 Documentation Only [facility] Of [address] [place] [address] Hiwot Smith [place] 01/16/2025 Telephone [facility] Of [address] [place] [address] Antonia Jackson 01/15/2025 10:00 AM EDT Procedure visit [facility] Of [address] [place] [place] [address] Tereso Arrieta MD End stage renal disease (HCC) (Primary Dx); Other mechanical complication of surgically created arteriovenous fistula, initial encounter (HCC) 01/15/2025 Telephone [facility] Of [address] [place] [address] Katharina Butt 01/12/2025 Telephone [facility] Of [address] [place] [place] [address] Antonia Jackson 12/11/2024 Orders Only [facility] Of [address] [place] [address] Hiwot Smith [place] Kidney replaced by transplant (Primary Dx); History of renal transplant; History of immunosuppressive therapy; Stage 3a chronic kidney disease (HCC); Hyperlipidemia, not otherwise specified; Type 2 diabetes mellitus without complication (HCC); Other iron deficiency anemia; Other specified hypoparathyroidism (HCC); Albuminuria, not otherwise specified from Last 3 Months Immunizations Immunization Administration [...] [facility] Of [address] [place] [address] Lucy Ngissa, ASPHALT HEATER OPERATOR-C [address] [place] [address] Health Maintenance Due Date Last Done [...] AM EDT) Hemoglobin A1C 6.4(H) (4.0-5.6) % [facility] Comment: MONITORING: In known diabetic patients, hemoglobin A1c targets should be discussed with health care provider. DIAGNOSTIC USE: The [place] Diabetes [employer] (ADA) and the World Health [...] [facility], a Service of [facility], [address] [place] [address] Tate Pham MD, Neuropsychology Division Chief [facility]# [id number] Blood specimen (specimen) Venous blood / Unknown 11/13/2022 9:47 AM EDT 11/13/2022 9:48 AM EDT Rony MEHTA LAB BLOOD ORDERABLES Final Re sult [facility] from Last 3 Months or Most Recently Relevant to Health Maintenance Insurance [facility] [id number] Care Teams Stuntman Relationship Specialty Start Date End Date Jessica Santamaria MD [address] [place] [address] PCP - General 04/04/19
--- OUTSIDE RECORDS SUMMARY | 2025-03-12 11:10 | XMS_ITS | Encounter Summary ---
Author Organization [facility] [place], Address [address] [place] [address] Phone Care Team Providers Care Sleep Medicine Physician Name Role Phone Jessica Santamaria MD Primary Care Provider [phone] Reason for Visit * Reason Comments Med Refill Encounter Details Date Type Department Care Team (Late st Contact Info) Description 06/23/2022 Refill [facility] [address] [place] [address] Rony Donato PA [address] [place] [address] [place] [address] Social History Tobacco Use Types [...] Support [facility] [address] [address] Shavon Ng FNP-C [address] [place] [address] documented as of this encounter Visit Diagnoses Not on filedocumented in this encounter Care Teams Sleep Medicine Physician Relationship Specialty Start Date End Date Jessica Santamaria MD [address] [place], [place] PCP - General 04/04/19 documented as of this encounter
--- OUTSIDE RECORDS SUMMARY | 2025-03-12 11:10 | XMS_ITS | Encounter Summary ---
Author Organization [facility] Address [address] [address] Phone Care Team Providers Care Hook And Eye Machine Operator Name Role Phone Jessica Santamaria MD Primary Care Provider [phone] Reason for Visit * Reason Comments Med Refill Encounter Details Date Type Department Care Team (Late st Contact Info) Description 04/12/2023 Refill [facility], [address] [place] [address] Alvaro Stratton MD [address] [place] [address] Social History Tobacco Use Types [...] Support [facility] [place] [address] [place] [address] Shavon Ng FNP-C [address] [place] [address] documented as of this encounter Visit Diagnoses Not on filedocumented in this encounter Care Teams Hook And Eye Machine Operator Relationship Specialty Start Date End Date Jessica Santamaria MD [address] [place], [place] PCP - General 04/04/19 documented as of this encounter
--- OUTSIDE RECORDS SUMMARY | 2025-03-12 11:10 | XMS_ITS | Encounter Summary ---
Author Organization [facility] Address [address] [place] [address] Phone Care Team Providers Care Emergency Department Coordinator Name Role Phone Jessica Santamaria MD Primary Care Provider [phone] Encounter Details Date Type Department Care Team (Late Contact Info) Description 08/20/2023 Documentation Only [facility] [place], [address] [place] [address] [place] [address] [place] [address] Social History Tobacco Use Types [...] Support [facility] [place] [address] [place] [address] Shavon Ng FNP-C [address] [place] [address] documented as of this encounter Visit Diagnoses Not on filedocumented in this encounter Care Teams Emergency Department Coordinator Relationship Specialty Start Date End Date Jessica Santamaria MD [address] [place], [place] PCP - General 04/04/19 documented as of this encounter
--- OUTSIDE RECORDS SUMMARY | 2025-03-12 11:10 | XMS_ITS | Encounter Summary ---
Author Organization [facility] [place], Address [address] [place] [address] Phone Care Team Providers Care Justowriter Operator Name Role Phone Jessica Santamaria MD Primary Care Provider [phone] Reason for Visit * Reason Comments Med Refill Encounter Details Date Type Department Care Team (Late st Contact Info) Description 08/24/2022 Refill [facility] [address] [place] [address] Rony Donato PA [address] [place] [address] [place] [address] Social History Tobacco Use Types Packs/Day [...] Clinical Support [facility] [address] [place] [address] Shavon Ng FNP-C [address] [place] [address] documented as of this encounter Visit Diagnoses Not on filedocumented in this encounter Care Teams Justowriter Operator Relationship Specialty Start Date End Date Jessica Santamaria MD [address] [place], [place] PCP - General 04/04/19 documented as of this encounter
--- OUTSIDE RECORDS SUMMARY | 2025-03-12 11:10 | XMS_ITS | Encounter Summary ---
Author Organization [facility] Of [facility] Address [address] [place] [address] Phone Care Team Providers Care Bit Gatherer Name Role Phone Jessica Santamaria MD Primary Care Provider [phone] Encounter Details Date Type Department Care Team (Late Contact Info) Description 09/20/2023 Documentation Only [facility] [place], [address] [place] [address] [place], [place] [address] [place] [address] Social History Tobacco Use Types [...] Support [facility] [place] [address] [place] [address] Shavon Ng FNP-C [address] [place] [address] documented as of this encounter Visit Diagnoses Not on filedocumented in this encounter Care Teams Bit Gatherer Relationship Specialty Start Date End Date Jessica Santamaria MD [address] [place], [place] PCP - General 04/04/19 documented as of this encounter
--- OUTSIDE RECORDS SUMMARY | 2025-03-12 11:10 | XMS_ITS | Encounter Summary ---
Author Organization [facility] [place], Address [address] [place] [address] Phone Care Team Providers Care Bean Picker Name Role Phone Jessica Santamaria MD Primary Care Provider [phone] Reason for Visit * Reason Comments Med Refill Encounter Details Date Type Department Care Team (Late st Contact Info) Description 07/20/2023 Refill [facility] [address] [place] [address] Rony Donato PA [address] [place] [address] [place] [address] Social History Tobacco Use Types Packs/Day [...] Clinical Support [facility] [address] [place] [address] Shavon Ng FNP-C [address] [place] [address] documented as of this encounter Visit Diagnoses Not on filedocumented in this encounter Care Teams Bean Picker Relationship Specialty Start Date End Date Jessica Santamaria MD [address] [place], [place] PCP - General 04/04/19 documented as of this encounter
--- OUTSIDE RECORDS SUMMARY | 2025-03-12 11:10 | XMS_ITS | Encounter Summary ---
Author Organization [facility] Address [address] [place] [address] Phone Care Team Providers Care Mechanical Test Technician Name Role Phone Jessica Santamaria MD Primary Care Provider [phone] Encounter Details Date Type Department Care Team (Late st Contact Info) Description 09/15/2024 Telephone [facility] [address] [place] [place] [address] Karyn Ross Social History Tobacco [...] tender and painful. Please return the call [phone] - thank you documented in this encounter Plan of Treatment Upcoming Encounters Date Type Department Care Team (Late st Contact Info) Description 04/05/2025 2:00 PM EST Clinical Support [facility] [place] [address] [place] [place] [address] Shavon Ng, [employer] ENTERPRISE PORTAL CONSULTANT-C [address] [place] [address] documented as of this encounter Visit Diagnoses Not on filedocumented in this encounter Care Teams Mechanical Test Technician Relationship Specialty Start Date End Date Jessica Santamaria MD [address] [place] [address] PCP - General 04/04/19 documented as of this encounter
--- OUTSIDE RECORDS SUMMARY | 2025-03-12 11:10 | XMS_ITS | Encounter Summary ---
Author Organization [facility] [place], Address [address] [place] [address] Phone Care Team Providers Care Crown Ironer Operator Name Role Phone Jessica Santamaria MD Primary Care Provider [phone] Reason for Visit * Reason Comments Med Refill Encounter Details Date Type Department Care Team (Late st Contact Info) Description 06/20/2021 Refill [facility] [address] [place] [address] Rony Donato PA [address] [place] [address] [place] [address] Social History Tobacco Use Types [...] Clinical Support [facility] [address] [place] [address] Shavon Ng FNP-C [address] [place] [address] documented as of this encounter Visit Diagnoses Not on filedocumented in this encounter Care Teams Crown Ironer Operator Relationship Specialty Start Date End Date Jessica Santamaria MD [address] [place], [place] PCP - General 04/04/19 documented as of this encounter
--- OUTSIDE RECORDS SUMMARY | 2025-03-12 11:10 | XMS_ITS | Encounter Summary ---
Author Organization [facility] Of [facility] Address [address] [place] [address] Phone Care Team Providers Care Hair Or Beauty Salon Assistant Name Role Phone Jessica Santamaria MD Primary Care Provider [phone] Encounter Details Date Type Department Care Team (Late Contact Info) Description 02/16/2024 Documentation Only [facility] [place], [address] [place] [address] [place], [place] [address] [place] [address] Social History Tobacco Use Types [...] Support [facility] [place] [address] [place] [address] Shavon Ng FNP-C [address] [place] [address] documented as of this encounter Visit Diagnoses Not on filedocumented in this encounter Care Teams Hair Or Beauty Salon Assistant Relationship Specialty Start Date End Date Jessica Santamaria MD [address] [place], [place] PCP - General 04/04/19 documented as of this encounter
[2025-03-12 12:12] LABS: Anion Gap 12 (12-20); Blood Urea Nitrogen 24 mg/dL (9-16); Calcium 9.8 mg/dL (8.4-10.2); Carbon Dioxide 25 mmol/L (22-29); Chloride 108 mmol/L (96-108); Estimated Glomerular Filt Rate 39; Potassium 4.3 mmol/L (3.3-5.1); Sodium 141 mmol/L (135-145)
[2025-03-13 05:59] LABS: Tacrolimus Prograf 8.5 mcg/L
== END 2025-03-12 11:02 | disposition home or self-care (01) ==
LOC: HO.LAB 11:01
PROVIDERS: PCP Internal Medicine; Visit Provider Internal Medicine Nephrology
DX: N18.32 Chronic kidney disease, stage 3b (principal); Z94.0 Kidney transplant status; Z92.25 Personal history of immunosuppression therapy
CPT/HCPCS: 36415; 80051; 80197; 82310; 82565; 84520

== ENCOUNTER 2025-03-16 11:30 | Outpatient (AMB) | payer OTHER, SELFPAY ==
[2025-03-16 11:33] VITALS: BP 110/68; PULSE 76; RESP 18; TEMP 36.3; O2SAT 98; BMI 23.6
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
--- OUTSIDE RECORDS SUMMARY | 2025-03-16 14:16 | XMS_ITS | Encounter Summary ---
Author Organization [facility] Address [address] [place] [address] Phone Care Team Providers Care Insole Stiffener Name Role Phone Jessica Santamaria MD Primary Care Provider [phone] Encounter Details Date Type Department Care Team (Late Contact Info) Description 06/30/2024 Documentation Only [facility] [place], [address] [place] [address] [place], [place] [address] [place] [address] Social History Tobacco Use Types [...] Support [facility] [place] [address] [place] [address] Shavon Ng FNP-C [address] [place] [address] documented as of this encounter Visit Diagnoses Not on filedocumented in this encounter Care Teams Insole Stiffener Relationship Specialty Start Date End Date Jessica Santamaria MD [address] [place], [place] PCP - General 04/04/19 documented as of this encounter
--- OUTSIDE RECORDS SUMMARY | 2025-03-16 14:16 | XMS_ITS | Encounter Summary ---
Author Organization [facility] Of [facility] Address [address] [place] [address] Phone Care Team Providers Care Timber Harvester Operator Name Role Phone Jessica Santamaria MD Primary Care Provider [phone] Encounter Details Date Type Department Care Team (Late Contact Info) Description 06/30/2024 Documentation Only [facility] [place], [address] [place] [address] [place], [place] [address] [place] [address] Social History Tobacco Use Types [...] Support [facility] [place] [address] [place] [address] Shavon Ng FNP-C [address] [place] [address] documented as of this encounter Visit Diagnoses Not on filedocumented in this encounter Care Teams Timber Harvester Operator Relationship Specialty Start Date End Date Jessica Santamaria MD [address] [place], [place] PCP - General 04/04/19 documented as of this encounter
--- OUTSIDE RECORDS SUMMARY | 2025-03-16 14:16 | XMS_ITS | Encounter Summary ---
Author Organization [facility] Of [facility] Address [address] [place] [address] Phone Care Team Providers Care Machine Buffer Name Role Phone Jessica Santamaria MD Primary Care Provider [phone] Encounter Details Date Type Department Care Team (Late Contact Info) Description 09/18/2024 Documentation Only [facility] [place], [address] [place] [address] [place], [place] [address] [place] [address] Social History [...] Support [facility] [place] [address] [place] [address] Shavon Ng FNP-C [address] [place] [address] documented as of this encounter Visit Diagnoses Not on filedocumented in this encounter Care Teams Machine Buffer Relationship Specialty Start Date End Date Jessica Santamaria MD [address] [place], [place] PCP - General 04/04/19 documented as of this encounter
--- OUTSIDE RECORDS SUMMARY | 2025-03-16 14:17 | XMS_ITS | Encounter Summary ---
Author Organization [facility] Of [facility] Address [address] [place] [address] Phone Care Team Providers Care Menu Planner Name Role Phone Jessica Santamaria MD Primary Care Provider [phone] Encounter Details Date Type Department Care Team (Late Contact Info) Description 01/23/2025 Documentation Only [facility] [place], [address] [place] [address] [place], [place] [address] [place] [address] Social History Tobacco Use [...] Support [facility] [place] [address] [place] [address] Shavon Ng FNP-C [address] [place] [address] documented as of this encounter Visit Diagnoses Not on filedocumented in this encounter Care Teams Menu Planner Relationship Specialty Start Date End Date Jessica Santamaria MD [address] [place], [place] PCP - General 04/04/19 documented as of this encounter
--- OUTSIDE RECORDS SUMMARY | 2025-03-16 14:17 | XMS_ITS | Encounter Summary ---
Author Organization [facility] Of [facility] Address [address] [place] [address] Phone Care Team Providers Care Levers Lace Machine Operator Name Role Phone Jessica Santamaria MD Primary Care Provider [phone] Encounter Details Date Type Department Care Team (Late Contact Info) Description 09/27/2024 Documentation Only [facility] [place], [address] [place] [address] [place], [place] [address] [place] [address] Social History Tobacco Use Types [...] Support [facility] [place] [address] [place] [address] Shavon Ng FNP-C [address] [place] [address] documented as of this encounter Visit Diagnoses Not on filedocumented in this encounter Care Teams Levers Lace Machine Operator Relationship Specialty Start Date End Date Jessica Santamaria MD [address] [place], [place] PCP - General 04/04/19 documented as of this encounter
--- OUTSIDE RECORDS SUMMARY | 2025-03-16 14:17 | XMS_ITS | Encounter Summary ---
Author Organization [facility] Of [place], Address [address] [place] [address] Phone Care Team Providers Care Internal Control Consultant Name Role Phone Jessica Santamaria MD Primary Care Provider [phone] Reason for Visit * Reason Comments Med Refill Encounter Details Date Type Department Care Team (Late st Contact Info) Description 06/20/2021 Refill [facility] [address] [place] [address] Rony Donato PA [address] [place] [address] [place] [address] Social History Tobacco Use Types [...] Clinical Support [facility] [address] [place] [address] Shavon Ng FNP-C [address] [place] [address] documented as of this encounter Visit Diagnoses Not on filedocumented in this encounter Care Teams Internal Control Consultant Relationship Specialty Start Date End Date Jessica Santamaria MD [address] [place], [place] PCP - General 04/04/19 documented as of this encounter
--- OUTSIDE RECORDS SUMMARY | 2025-03-16 14:17 | XMS_ITS | Encounter Summary ---
Author Organization [facility] [place], Address [address] [place] [address] Phone Care Team Providers Care Scratcher Tender Name Role Phone Jessica Santamaria MD Primary Care Provider [phone] Reason for Visit * Reason Comments Med Refill Encounter Details Date Type Department Care Team (Late st Contact Info) Description 06/11/2021 Refill [facility] [address] [place] [address] Rony Donato PA [address] [place] [address] [place] [address] Social History Tobacco Use Types [...] & Transplant Services [facility] [address] [place] [address] Shavon Ng FNP-C [address] [place] [address] documented as of this encounter Visit Diagnoses Not on filedocumented in this encounter Care Teams Scratcher Tender Relationship Specialty Start Date End Date Jessica Santamaria MD [address] [place], [place] PCP - General 04/04/19 documented as of this encounter
--- OUTSIDE RECORDS SUMMARY | 2025-03-16 14:17 | XMS_ITS | Encounter Summary ---
Author Organization [facility] Address [address] [place] [address] Phone Care Team Providers Care Top Distribution Executive Name Role Phone Jessica Santamaria MD Primary Care Provider [phone] Encounter Details Date Type Department Care Team (Late Contact Info) Description 09/28/2023 Documentation Only [facility] [place], [address] [facility] [place] [address] [place], [place] [address] [place] [address] Social History Tobacco Use Types [...] Services [facility] [place] [address] [place] [address] Shavon Ng FNP-C [address] [place] [address] documented as of this encounter Visit Diagnoses Not on filedocumented in this encounter Care Teams Top Distribution Executive Relationship Specialty Start Date End Date Jessica Santamaria MD [address] [place], [place] PCP - General 04/04/19 documented as of this encounter
--- OUTSIDE RECORDS SUMMARY | 2025-03-16 14:17 | XMS_ITS | Encounter Summary ---
Author Organization [facility] Address [address] [place] [address] Phone Care Team Providers Care Vice President Supply Chain Name Role Phone Jessica Santamaria MD Primary Care Provider [phone] Encounter Details Date Type Department Care Team (Late Contact Info) Description 08/20/2023 Documentation Only [facility] [place], [address] [facility] [place] [address] [place], [place] [address] [place] [address] Social History Tobacco Use Types [...] Support [facility] [place] [address] [place] [address] Shavon Ng FNP-C [address] [place] [address] documented as of this encounter Visit Diagnoses Not on filedocumented in this encounter Care Teams Vice President Supply Chain Relationship Specialty Start Date End Date Jessica Santamaria MD [address] [place], [place] PCP - General 04/04/19 documented as of this encounter
--- OUTSIDE RECORDS SUMMARY | 2025-03-16 14:17 | XMS_ITS | Encounter Summary ---
Author Organization [facility] Address [address] [place] [address] Phone Care Team Providers Care Wood Ski Maker Name Role Phone Jessica Santamaria MD Primary Care Provider [phone] Encounter Details Date Type Department Care Team (Late Contact Info) Description 09/20/2023 Documentation Only [facility] [place], [address] [facility] [place] [address] [place], [place] [address] [place] [address] Social History Tobacco Use Types [...] Support [facility] [place] [address] [place] [address] Shavon Ng FNP-C [address] [place] [address] documented as of this encounter Visit Diagnoses Not on filedocumented in this encounter Care Teams Wood Ski Maker Relationship Specialty Start Date End Date Jessica Santamaria MD [address] [place], [place] PCP - General 04/04/19 documented as of this encounter
--- OUTSIDE RECORDS SUMMARY | 2025-03-16 14:17 | XMS_ITS | Encounter Summary ---
Author Organization [facility] Address [address] [place] [address] Phone Care Team Providers Care Aviation Electronic Warfare Operator Name Role Phone Jessica Santamaria MD Primary Care Provider [phone] Encounter Details Date Type Department Care Team (Late Contact Info) Description 02/16/2024 Documentation Only [facility] [place], [address] [facility] [place] [address] [place], [place] [address] [place] [address] Social History Tobacco Use Types [...] Support [facility] [place] [address] [place] [address] Shavon Ng FNP-C [address] [place] [address] documented as of this encounter Visit Diagnoses Not on filedocumented in this encounter Care Teams Aviation Electronic Warfare Operator Relationship Specialty Start Date End Date Jessica Santamaria MD [address] [place], [place] PCP - General 04/04/19 documented as of this encounter
--- OUTSIDE RECORDS SUMMARY | 2025-03-16 14:17 | XMS_ITS | Encounter Summary ---
Author Organization [facility] Address [address] [address] Phone Care Team Providers Care Channeler Name Role Phone Jessica Santamaria MD Primary Care Provider [phone] Reason for Visit * Reason Comments Med Refill Encounter Details Date Type Department Care Team (Late st Contact Info) Description 04/12/2023 Refill [facility], [address] [place] [address] Alvaro Stratton MD [address] [facility] [place] [address] Social History Tobacco Use Types [...] Support [facility] [place] [address] [place] [address] Shavon Ng FNP-C [address] [place] [address] documented as of this encounter Visit Diagnoses Not on filedocumented in this encounter Care Teams Channeler Relationship Specialty Start Date End Date Jessica Santamaria MD [address] [place], [place] PCP - General 04/04/19 documented as of this encounter
--- OUTSIDE RECORDS SUMMARY | 2025-03-16 14:17 | XMS_ITS | Encounter Summary ---
Author Organization [facility] [place], Address [address] [place] [address] Phone Care Team Providers Care Auriculotherapist Name Role Phone Jessica Santamaria MD Primary Care Provider [phone] Reason for Visit * Reason Comments Med Refill Encounter Details Date Type Department Care Team (Late st Contact Info) Description 06/23/2021 Refill [facility] [address] [place] [address] Rony Donato PA [address] [place] [address] [place] [address] Social History Tobacco Use Types [...] Care & Transplant Services [facility] [address] [place] [address] Shavon Ng FNP-C [address] [place] [address] documented as of this encounter Visit Diagnoses Not on filedocumented in this encounter Care Teams Auriculotherapist Relationship Specialty Start Date End Date Jessica Santamaria MD [address] [place], [place] PCP - General 04/04/19 documented as of this encounter
--- OUTSIDE RECORDS SUMMARY | 2025-03-16 14:17 | XMS_ITS | Encounter Summary ---
Author Organization [facility] Address [address] [place] [address] Phone Care Team Providers Care Low Heel Builder Name Role Phone Jessica Santamaria MD Primary Care Provider [phone] Encounter Details Date Type Department Care Team (Late Contact Info) Description 03/12/2025 Documentation Only [facility] [place], [address] [facility] [place] [address] [place], [place] [address] [place] [address] Social History Tobacco Use Types [...] Support [facility] [place] [address] [place] [address] Shavon Ng FNP-C [address] [place] [address] documented as of this encounter Visit Diagnoses Not on filedocumented in this encounter Care Teams Low Heel Builder Relationship Specialty Start Date End Date Jessica Santamaria MD [address] [place], [place] PCP - General 04/04/19 documented as of this encounter
--- OUTSIDE RECORDS SUMMARY | 2025-03-16 14:17 | XMS_ITS | Encounter Summary ---
Author Organization [facility] Address [address] [place] [address] Phone Care Team Providers Care Marketing Copywriter Name Role Phone Jessica Santamaria MD Primary Care Provider [phone] Encounter Details Date Type Department Care Team (Late st Contact Info) Description 09/15/2024 Telephone [facility] [address] [place] [place] [address] Karyn Ross Social History Tobacco [...] tender and painful. Please return the call [phone] - thank you documented in this encounter Plan of Treatment Upcoming Encounters Date Type Department Care Team (Late st Contact Info) Description 04/05/2025 2:00 PM EST Clinical Support [facility] [address] [place] [address] Shavon Ng, CAE ENGINEER-C [address] [place] [address] documented as of this encounter Visit Diagnoses Not on filedocumented in this encounter Care Teams Marketing Copywriter Relationship Specialty Start Date End Date Jessica Santamaria MD [address] [place] [address] PCP - General 04/04/19 documented as of this encounter
--- OUTSIDE RECORDS SUMMARY | 2025-03-16 14:17 | XMS_ITS | Encounter Summary ---
Author Organization [facility] [place], Address [address] [place] [address] Phone Care Team Providers Care Certified Anesthesiologist Assistant Name Role Phone Jessica Santamaria MD Primary Care Provider [phone] Reason for Visit * Reason Comments Med Refill Encounter Details Date Type Department Care Team (Late st Contact Info) Description 06/23/2022 Refill [facility] [address] [place] [address] Rony Donato PA [address] [place] [address] [place] [address] Social History Tobacco Use Types Packs/Day [...] Clinical Support [facility] [address] [place] [address] Shavon Ng FNP-C [address] [place] [address] documented as of this encounter Visit Diagnoses Not on filedocumented in this encounter Care Teams Certified Anesthesiologist Assistant Relationship Specialty Start Date End Date Jessica Santamaria MD [address] [place], [place] PCP - General 04/04/19 documented as of this encounter
--- OUTSIDE RECORDS SUMMARY | 2025-03-16 14:17 | XMS_ITS | Encounter Summary ---
Author Organization [facility] Address [address] [place] [address] Phone Care Team Providers Care Blasting Entryman Name Role Phone Jessica Santamaria MD Primary Care Provider [phone] Encounter Details Date Type Department Care Team (Late Contact Info) Description 10/05/2023 Documentation Only [facility] [place], [address] [facility] [place] [address] [place], [place] [address] [place] [address] Social History Tobacco Use Types [...] Support [facility] [place] [address] [place] [address] Shavon Ng FNP-C [address] [place] [address] documented as of this encounter Visit Diagnoses Not on filedocumented in this encounter Care Teams Blasting Entryman Relationship Specialty Start Date End Date Jessica Santamaria MD [address] [place], [place] PCP - General 04/04/19 documented as of this encounter
--- OUTSIDE RECORDS SUMMARY | 2025-03-16 14:17 | XMS_ITS | Encounter Summary ---
Author Organization [facility] Address [address] [place] [address] Phone Care Team Providers Care Planishing Press Operator Name Role Phone Jessica Santamaria MD Primary Care Provider [phone] Encounter Details Date Type Department Care Team (Late Contact Info) Description 04/28/2024 Documentation Only [facility] [place], [address] [facility] [place] [address] [place], [place] [address] [place] [address] Social History Tobacco Use Types [...] Care & [facility] [place] [address] [place] [address] Shavon Ng FNP-C [address] [place] [address] documented as of this encounter Visit Diagnoses Not on filedocumented in this encounter Care Teams Planishing Press Operator Relationship Specialty Start Date End Date Jessica Santamaria MD [address] [place], [place] PCP - General 04/04/19 documented as of this encounter
--- OUTSIDE RECORDS SUMMARY | 2025-03-16 14:17 | XMS_ITS | Encounter Summary ---
Author Organization [facility] [place], Address [address] [address] Phone Care Team Providers Care Chief Relay Tester Name Role Phone Jessica Santamaria MD Primary Care Provider Reason for Visit * Reason Comments Med Refill Encounter Details Date Type Department Care Team (Late st Contact Info) Description 07/13/2022 Refill [facility] [address] [place] [address] Alvaro Stratton MD [address] [place] [address] [place] [address] Social History Tobacco Use Types [...] Support [facility] [address] [facility] [place] [place] [address] Shavon Ng FNP-C [address] [place] [place] [address] documented as of this encounter Visit Diagnoses Not on filedocumented in this encounter Care Teams Chief Relay Tester Relationship Specialty Start Date End Date Jessica Santamaria MD [address] [place], [place] PCP - General 04/04/19 documented as of this encounter
--- OUTSIDE RECORDS SUMMARY | 2025-03-16 14:17 | XMS_ITS | Encounter Summary ---
Author Organization [facility] [place], Address [address] [place] [address] Phone Care Team Providers Care Billposter Name Role Phone Jessica Santamaria MD Primary Care Provider [phone] Reason for Visit * Reason Comments Med Refill Encounter Details Date Type Department Care Team (Late st Contact Info) Description 07/20/2023 Refill [facility] [address] [place] [address] Rony Donato PA [address] [place] [address] [place] [address] Social History Tobacco Use Types Packs/Day [...] [facility] [address] [address] Shavon Ng FNP-C [address] [address] documented as of this encounter Visit Diagnoses Not on filedocumented in this encounter Care Teams Billposter Relationship Specialty Start Date End Date Jessica Santamaria MD [address] [place], [place] PCP - General 04/04/19 documented as of this encounter
--- OUTSIDE RECORDS SUMMARY | 2025-03-16 14:17 | XMS_ITS | Encounter Summary ---
Author Organization [facility] Address [address] [place] [address] Phone Care Team Providers Care Group Rooms Coordinator Name Role Phone Jessica Santamaria MD Primary Care Provider [phone] Encounter Details Date Type Department Care Team (Late Contact Info) Description 09/18/2024 Documentation Only [facility] [place], [address] [place] [address] [place], [place] [address] [place] [address] Social History Tobacco Use Types [...] Support [facility] [place] [address] [place] [address] Shavon Ng FNP-C [address] [place] [address] documented as of this encounter Visit Diagnoses Not on filedocumented in this encounter Care Teams Group Rooms Coordinator Relationship Specialty Start Date End Date Jessica Santamaria MD [address] [place], [place] PCP - General 04/04/19 documented as of this encounter
--- OUTSIDE RECORDS SUMMARY | 2025-03-16 14:17 | XMS_ITS | Encounter Summary ---
Author Organization [facility] Address [address] [place] [address] Phone Care Team Providers Care Workers Compensation Claims Adjuster Name Role Phone Jessica Santamaria MD Primary Care Provider [phone] Encounter Details Date Type Department Care Team (Late Contact Info) Description 11/18/2023 Documentation Only [facility] [place], [address] [facility] [place] [address] [place], [place] [address] [place] [address] Social History Tobacco Use Types [...] Support [facility] [place] [address] [place] [address] Shavon Ng FNP-C [address] [place] [address] documented as of this encounter Visit Diagnoses Not on filedocumented in this encounter Care Teams Workers Compensation Claims Adjuster Relationship Specialty Start Date End Date Jessica Santamaria MD [address] [place], [place] PCP - General 04/04/19 documented as of this encounter
--- OUTSIDE RECORDS SUMMARY | 2025-03-16 14:17 | XMS_ITS | Clinical Summary ---
Author Organization [facility] [place], Address [address] [place] [address] [place] [address] Phone Care Team Providers Care Switch Box Installer Name Role Phone Jessica Santamaria MD Primary Care Provider [phone] Allergies Active Allergy Reactions Criticality Noted Date [...] (one) time each day 5 Active Pancrelipase, Dcg-Vtuk-Tmkd, (CREON PO) Take by mouth in the [...] Encounters Date Type Department Care Team Description 03/12/2025 Documentation Only [facility] Of [address] [place] [address] Hiwot Smith [place] 02/14/2025 Orders Only [facility] [address] [place] [address] Zoe Vásquez, RN History of renal transplant (Primary Dx); History of immunosuppressive therapy; Stage 3b chronic kidney disease (HCC) 02/14/2025 Telephone [facility] [address] [place] [address] Zoe Vásquez, ANABELL 02/09/2025 Telephone [facility] [address] [place] [address] Zoe Vásquez, ANABELL 02/08/2025 4:15 PM EDT Clinical Support [facility] [address] [place] [address] Shavon Ng FNP-C Essential hypertension (Primary Dx); History of renal transplant; History of immunosuppressive therapy; Stage 3a chronic kidney disease (HCC) 02/01/2025 Orders Only [facility] [address] [place] [address] Hiwot Smith [place] Kidney replaced by transplant [...] [facility] [address] [place] [address] Damian Norris MD 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) 01/23/2025 Documentation Only [facility] Of [address] [place] [address] Hiwot Smith [place] 01/16/2025 Telephone [facility] Of [address] [place] [address] Antonia Jackson 01/15/2025 10:00 AM EDT Procedure visit [facility] Of [address] [place] [address] Tereso Arrieta MD End stage renal disease (HCC) (Primary Dx); Other mechanical complication of surgically created arteriovenous fistula, initial encounter (HCC) 01/15/2025 Telephone [facility] Of [address] [place] [address] Katharina Butt 01/12/2025 Telephone [facility] Of [address] [place] [address] Antonia Jackson from Last 3 Months Immunizations [...] Support [facility] [place] [address] [place] [address] Shavon Ng FNP-C [address] [place] [id number] Health Maintenance Due Date Last Done Comments [...] AM EDT) Hemoglobin A1C 6.4(H) (4.0-5.6) % [facility] Comment: MONITORING: In known diabetic patients, hemoglobin [...] Supplement 1 Testing performed or reported by [facility], a Service of [facility], [address] [place] [address] Tate Pham MD, Abstract Writer [facility]# [id number] Blood specimen (specimen) Venous blood / Unknown 11/13/2022 9:47 AM EDT 11/13/2022 9:48 AM EDT Rony MEHTA LAB BLOOD ORDERABLES Final Re sult [facility] from Last 3 Months or Most Recently Relevant to Health Maintenance Insurance [facility] Medicaid Care Teams Switch Box Installer Relationship Specialty Start Date End Date Jessica Santamaria MD [address] [place], [place] PCP - General 04/04/19
--- OUTSIDE RECORDS SUMMARY | 2025-03-16 14:17 | XMS_ITS | Encounter Summary ---
Author Organization [facility] [place], Address [address] [place] [address] Phone Care Team Providers Care Welcome Center Attendant Name Role Phone Jessica Santamaria MD Primary Care Provider [phone] Reason for Visit * Reason Comments Med Refill Encounter Details Date Type Department Care Team (Late st Contact Info) Description 08/24/2022 Refill [facility] [address] [place] [address] Rony Donato PA [address] [place] [address] [place] [address] Social History Tobacco Use Types Packs/Day [...] Clinical Support [facility] [address] [place] [address] Shavon Ng FNP-C [address] [facility] [place] [place] [address] documented as of this encounter Visit Diagnoses Not on filedocumented in this encounter Care Teams Welcome Center Attendant Relationship Specialty Start Date End Date Jessica Santamaria MD [address] [place], [place] PCP - General 04/04/19 documented as of this encounter
--- OUTSIDE RECORDS SUMMARY | 2025-03-16 14:17 | XMS_ITS | Encounter Summary ---
Author Organization [facility] Address [address] [place] [address] Phone Care Team Providers Care Chocolate Finisher Operator Name Role Phone Jessica Santamaria MD Primary Care Provider [phone] Encounter Details Date Type Department Care Team (Late Contact Info) Description 09/20/2023 Documentation Only [facility] [place], [address] [place] [address] [place], [place] [address] [place] [address] Social History Tobacco Use [...] Support [facility] [place] [address] [place] [address] Shavon Ng FNP-C [address] [place] [address] documented as of this encounter Visit Diagnoses Not on filedocumented in this encounter Care Teams Chocolate Finisher Operator Relationship Specialty Start Date End Date Jessica Santamaria MD [address] [place], [place] PCP - General 04/04/19 documented as of this encounter
--- OUTSIDE RECORDS SUMMARY | 2025-03-16 14:17 | XMS_ITS | Encounter Summary ---
Author Organization [facility] [place], Address [address] [place] [address] Phone Care Team Providers Care Lamina Searcher Name Role Phone Jessica Santamaria MD Primary Care Provider [phone] Reason for Visit * Reason Comments Med Refill Encounter Details Date Type Department Care Team (Late st Contact Info) Description 04/16/2022 Refill [facility] [address] [place] [address] Rony Donato PA [address] [place] [address] [place] [address] Social History Tobacco Use Types [...] Support [facility] Of [address] [place] [address] Shavon Ng FNP-C [address] [place] [address] [place] [address] documented as of this encounter Visit Diagnoses Not on filedocumented in this encounter Care Teams Lamina Searcher Relationship Specialty Start Date End Date Jessica Santamaria MD [address] [place], [place] PCP - General 04/04/19 documented as of this encounter
== END 2025-03-16 12:23 | disposition home or self-care (01) ==
LOC: HO.HMCH 11:31
PROVIDERS: PCP Internal Medicine; Visit Provider Nurse Practitioner Family
DX: S92.355A Nondisplaced fracture of fifth metatarsal bone, left foot, initial encounter for closed fracture (principal)

== ENCOUNTER → 2025-03-16 11:30 | Outpatient (BNVA) | payer OTHER, SELFPAY | PROVIDERS: PCP Internal Medicine; Visit Provider Nurse Practitioner Family | DX: S92.355A Nondisplaced fracture of fifth metatarsal bone, left foot, initial encounter for closed fracture (principal); X58.XXXA Exposure to other specified factors, initial encounter; Y93.9 Activity, unspecified; Y92.9 Unspecified place or not applicable; Y99.9 Unspecified external cause status | CPT/HCPCS: 99212 ==

== ENCOUNTER 2025-03-19 07:40 | Outpatient (REF) | payer OTHER, SELFPAY ==
[2025-03-19 10:22] LABS: Alanine Aminotransferase 22 U/L (0-31); Albumin Level 4.7 g/dL (3.5-5.0); Alkaline Phosphatase 83 U/L (39-117); Anion Gap 13 (12-20); Aspartate Amino Transferase 29 U/L (5-31); Blood Urea Nitrogen 22 mg/dL (9-16); Calcium 9.9 mg/dL (8.4-10.2); Carbon Dioxide 26 mmol/L (22-29); Chloride 105 mmol/L (96-108); Cholesterol 113 mg/dL (<200); Estimated Glomerular Filt Rate 42; HDL Cholesterol 30 mg/dL (>40); Potassium 4.4 mmol/L (3.3-5.1); Sodium 140 mmol/L (135-145); Total Protein 7.1 g/dL (6.5-8.0); Triglycerides 183 mg/dL (<150)
[2025-03-19 10:29] LABS: Free T4 (Free Thyroxine) 1.00 ng/dL (0.71-1.85); Thyroid Stimulating Hormone 2.12 uIU/mL (0.32-4.0)
[2025-03-19 10:43] LABS: Folate 8.8 ng/mL (> or = 4.0); Vitamin B12 248 pg/mL (200-900)
[2025-03-19 10:53] LABS: Microalbum/Creatinine Ratio Ur 18.0 ug/mg cr (<30)
== END 2025-03-19 07:41 | disposition home or self-care (01) ==
LOC: HO.LAB 07:40
PROVIDERS: PCP Internal Medicine; Visit Provider Internal Medicine
DX: E11.65 Type 2 diabetes mellitus with hyperglycemia (principal); E03.9 Hypothyroidism, unspecified; E78.5 Hyperlipidemia, unspecified; R80.9 Proteinuria, unspecified; E55.9 Vitamin D deficiency, unspecified; E53.8 Deficiency of other specified B group vitamins; E11.22 Type 2 diabetes mellitus with diabetic chronic kidney disease; I12.9 Hypertensive chronic kidney disease with stage 1 through stage 4 chronic kidney disease, or unspecified chronic kidney disease; N18.32 Chronic kidney disease, stage 3b; M54.16 Radiculopathy, lumbar region; S92.355A Nondisplaced fracture of fifth metatarsal bone, left foot, initial encounter for closed fracture; Z79.890 Hormone replacement therapy; Z79.891 Long term (current) use of opiate analgesic; Z79.899 Other long term (current) drug therapy
CPT/HCPCS: 36415; 80053; 80061; 82043; 82306; 82570; 82607; 82746; 83036; 84439; 84443; 96127; 99212

== ENCOUNTER 2025-03-19 07:40 | Outpatient (AMB) | payer OTHER, SELFPAY ==
--- OUTSIDE RECORDS SUMMARY | 2025-03-19 07:45 | XMS_ITS | Encounter Summary ---
Author Organization [facility] Address [address] [place] [address] Phone Care Team Providers Care Is Analyst Name Role Phone Jessica Santamaria MD Primary Care Provider [phone] Encounter Details Date Type Department Care Team (Late Contact Info) Description 01/23/2025 Documentation Only [facility] [place], [address] [place] [address] [place], [place] [address] [place] [address] Social History Tobacco Use Types [...] Support [facility] [place] [address] [place] [address] Shavon Ng FNP-C [address] [place] [address] documented as of this encounter Visit Diagnoses Not on filedocumented in this encounter Care Teams Is Analyst Relationship Specialty Start Date End Date Jessica Santamaria MD [address] [place], [place] PCP - General 04/04/19 documented as of this encounter
--- OUTSIDE RECORDS SUMMARY | 2025-03-19 07:45 | XMS_ITS | Encounter Summary ---
Author Organization [facility] Address [address] [place] [address] Phone Care Team Providers Care Business Development Representative Name Role Phone Jessica Santamaria MD Primary Care Provider [phone] Encounter Details Date Type Department Care Team (Late Contact Info) Description 06/30/2024 Documentation Only [facility] [place], [address] [place] [address] [place], [place] [address] [place] [address] Social History Tobacco Use Types [...] Support [facility] [place] [address] [place] [address] Shavon Ng FNP-C [address] [place] [place] [address] documented as of this encounter Visit Diagnoses Not on filedocumented in this encounter Care Teams Business Development Representative Relationship Specialty Start Date End Date Jessica Santamaria MD [address] [place], [place] PCP - General 04/04/19 documented as of this encounter
--- OUTSIDE RECORDS SUMMARY | 2025-03-19 07:45 | XMS_ITS | Encounter Summary ---
Author Organization [facility] Address [address] [place] [address] Phone Care Team Providers Care Staple Shear Operator Name Role Phone Jessica Santamaria MD Primary Care Provider Encounter Details Date Type Department Care Team (Late Contact Info) Description 09/18/2024 Documentation Only [facility] [place], [address] [place] [address] [place], [place] [address] [place] [address] Social History Tobacco Use Types [...] Support [facility] [place] [address] [place] [address] Shavon Ng FNP-C [address] [place] [address] documented as of this encounter Visit Diagnoses Not on filedocumented in this encounter Care Teams Staple Shear Operator Relationship Specialty Start Date End Date Jessica Santamaria MD [address] [place], [place] PCP - General 04/04/19 documented as of this encounter
--- OUTSIDE RECORDS SUMMARY | 2025-03-19 07:45 | XMS_ITS | Encounter Summary ---
Author Organization [facility] Address [address] [place] [address] Phone Care Team Providers Care Gear Finisher Name Role Phone Jessica Santamaria MD Primary Care Provider [phone] Encounter Details Date Type Department Care Team (Late Contact Info) Description 09/27/2024 Documentation Only [facility] [place], [address] [place] [address] [place], [place] [address] [place] [address] Social History Tobacco Use Types [...] Support [facility] [place] [address] [place] [address] Shavon Ng FNP-C [address] [place] [address] documented as of this encounter Visit Diagnoses Not on filedocumented in this encounter Care Teams Gear Finisher Relationship Specialty Start Date End Date Jessica Santamaria MD [address] [place], [place] PCP - General 04/04/19 documented as of this encounter
--- OUTSIDE RECORDS SUMMARY | 2025-03-19 07:45 | XMS_ITS | Encounter Summary ---
Author Organization [facility] Address [address] [place] [address] Phone Care Team Providers Care Phy Therapist Name Role Phone Jessica Santamaria MD Primary Care Provider Encounter Details Date Type Department Care Team (Late st Contact Info) Description 09/15/2024 Telephone [facility] [address] [place] [address] Karyn Ross Social History Tobacco [...] tender and painful. Please return the call [phone] - thank you documented in this encounter Plan of Treatment Upcoming Encounters Date Type Department Care Team (Late st Contact Info) Description 04/05/2025 2:00 PM EST Clinical Support [facility] [address] [place] [address] Shavon Ng, NATURAL RESOURCES SPECIALIST-C [address] [place] [address] documented as of this encounter Visit Diagnoses Not on filedocumented in this encounter Care Teams Phy Therapist Relationship Specialty Start Date End Date Jessica Santamaria MD [address] [place] [address] PCP - General 04/04/19 documented as of this encounter
--- OUTSIDE RECORDS SUMMARY | 2025-03-19 07:45 | XMS_ITS | Encounter Summary ---
Author Organization [facility] Address [address] [place] [address] Phone Care Team Providers Care Baggage Handling Supervisor Name Role Phone Jessica Santamaria MD Primary Care Provider [phone] Encounter Details Date Type Department Care Team (Late Contact Info) Description 06/30/2024 Documentation Only [facility] [place], [address] [place] [place] [address] [place], [place] [address] [place] [address] Social History [...] Support [facility] [place] [address] [place] [address] Shavon Ng FNP-C [address] [place] [address] documented as of this encounter Visit Diagnoses Not on filedocumented in this encounter Care Teams Baggage Handling Supervisor Relationship Specialty Start Date End Date Jessica Santamaria MD [address] [place], [place] PCP - General 04/04/19 documented as of this encounter
--- OUTSIDE RECORDS SUMMARY | 2025-03-19 07:45 | XMS_ITS | Encounter Summary ---
Author Organization [facility] [place], Address [address] [place] [address] Phone Care Team Providers Care Claims Clerk Name Role Phone Jessica Santamaria MD Primary Care Provider [phone] Reason for Visit * Reason Comments Med Refill Encounter Details Date Type Department Care Team (Late st Contact Info) Description 06/11/2021 Refill [facility] [address] [place] [address] Rony Doanto PA [address] [place] [address] [place] [address] Social History Tobacco Use Types [...] Clinical Support [facility] [address] [place] [address] Shavon Ng FNP-C [address] [place] [address] documented as of this encounter Visit Diagnoses Not on filedocumented in this encounter Care Teams Claims Clerk Relationship Specialty Start Date End Date Jessica Santamaria MD [address] [place], [place] PCP - General 04/04/19 documented as of this encounter
--- OUTSIDE RECORDS SUMMARY | 2025-03-19 07:46 | XMS_ITS | Encounter Summary ---
Author Organization [facility] Address [address] [place] [address] Phone Care Team Providers Care Marionette Performer Name Role Phone Jessica Santamaria MD Primary Care Provider [phone] Encounter Details Date Type Department Care Team (Late Contact Info) Description 08/20/2023 Documentation Only [facility] [place], [address] [place] [address] [place], [place] [address] [place] [address] Social History Tobacco Use Types [...] Support [facility] [place] [address] [place] [address] Shavon Ng FNP-C [address] [place] [address] documented as of this encounter Visit Diagnoses Not on filedocumented in this encounter Care Teams Marionette Performer Relationship Specialty Start Date End Date Jessica Santamaria MD [address] [place], [place] PCP - General 04/04/19 documented as of this encounter
--- OUTSIDE RECORDS SUMMARY | 2025-03-19 07:46 | XMS_ITS | Encounter Summary ---
Author Organization [facility] [place], Address [address] [place] [address] Phone Care Team Providers Care Industrial Economics Professor Name Role Phone Jessica Santamaria MD Primary Care Provider [phone] Reason for Visit * Reason Comments Med Refill Encounter Details Date Type Department Care Team (Late st Contact Info) Description 06/23/2021 Refill [facility] [address] [place] [address] Rony Donato PA [address] [place] [address] [place] [address] Social History Tobacco Use Types [...] Transplant Services [facility] [address] [facility] [address] Shavon Ng FNP-C [address] [facility] [address] documented as of this encounter Visit Diagnoses Not on filedocumented in this encounter Care Teams Industrial Economics Professor Relationship Specialty Start Date End Date Jessica Santamaria MD [address] [place], [place] PCP - General 04/04/19 documented as of this encounter
--- OUTSIDE RECORDS SUMMARY | 2025-03-19 07:46 | XMS_ITS | Encounter Summary ---
Author Organization [facility] Address [address] [place] [address] Phone Care Team Providers Care Out Of School Hours Care Worker Name Role Phone Jessica Santamaria MD Primary Care Provider [phone] Encounter Details Date Type Department Care Team (Late Contact Info) Description 11/18/2023 Documentation Only [facility] [place], [address] [place] [address] [place], [place] [address] [place] [address] Social History Tobacco Use Types [...] Support [facility] [place] [address] [place] [address] Shavon Ng FNP-C [address] [place] [address] documented as of this encounter Visit Diagnoses Not on filedocumented in this encounter Care Teams Out Of School Hours Care Worker Relationship Specialty Start Date End Date Jessica Santamaria MD [address] [place], [place] PCP - General 04/04/19 documented as of this encounter
--- OUTSIDE RECORDS SUMMARY | 2025-03-19 07:46 | XMS_ITS | Encounter Summary ---
Author Organization [facility] [place], Address [address] [place] [address] Phone Care Team Providers Care Radiology Manager Name Role Phone Jessica Santamaria MD Primary Care Provider [phone] Reason for Visit * Reason Comments Med Refill Encounter Details Date Type Department Care Team (Late st Contact Info) Description 08/24/2022 Refill [facility] [address] [place] [address] Rony Donato PA [address] [place] [address] [place] [address] Social History Tobacco Use Types Packs/Day [...] Support [facility] [address] [place] [address] Shavon Ng FNP-C [address] [place] [place] [address] documented as of this encounter Visit Diagnoses Not on filedocumented in this encounter Care Teams Radiology Manager Relationship Specialty Start Date End Date Jessica Santamaria MD [address] [place], [place] PCP - General 04/04/19 documented as of this encounter
--- OUTSIDE RECORDS SUMMARY | 2025-03-19 07:46 | XMS_ITS | Encounter Summary ---
Author Organization [facility] [place], Address [address] [place] [address] Phone Care Team Providers Care Refinery Superintendent Name Role Phone Jessica Santamaria MD Primary Care Provider [phone] Reason for Visit * Reason Comments Med Refill Encounter Details Date Type Department Care Team (Late st Contact Info) Description 04/16/2022 Refill [facility] [address] [place] [address] Rony Donato PA [address] [place] [address] [place] [address] Social History Tobacco Use Types [...] [facility] Of [address] [place] [address] Shavon Ng FNP-C [address] [place] [address] [place] [address] documented as of this encounter Visit Diagnoses Not on filedocumented in this encounter Care Teams Refinery Superintendent Relationship Specialty Start Date End Date Jessica Santamaria MD [address] [place], [place] PCP - General 04/04/19 documented as of this encounter
--- OUTSIDE RECORDS SUMMARY | 2025-03-19 07:46 | XMS_ITS | Encounter Summary ---
Author Organization [facility] Address [address] [place] [address] Phone Care Team Providers Care Customer Loyalty Representative Name Role Phone Jessica Santamaria MD Primary Care Provider [phone] Encounter Details Date Type Department Care Team (Late Contact Info) Description 10/05/2023 Documentation Only [facility] [place], [address] [place] [address] [place], [place] [address] [place] [address] Social History Tobacco Use Types [...] Services Of [place] [address] [place] [address] Shavon Ng FNP-C [address] [place] [address] documented as of this encounter Visit Diagnoses Not on filedocumented in this encounter Care Teams Customer Loyalty Representative Relationship Specialty Start Date End Date Jessica Santamaria MD [address] [place], [place] PCP - General 04/04/19 documented as of this encounter
--- OUTSIDE RECORDS SUMMARY | 2025-03-19 07:46 | XMS_ITS | Encounter Summary ---
Author Organization [facility] Address [address] [address] Phone Care Team Providers Care Patrol Judge Name Role Phone Jessica Santamaria MD Primary Care Provider [phone] Reason for Visit * Reason Comments Med Refill Encounter Details Date Type Department Care Team (Late st Contact Info) Description 04/12/2023 Refill [facility], [address] [place] [address] Alvaro Stratton MD [address] [place] [address] Social History Tobacco Use Types [...] Support [facility] [place] [address] [place] [address] Shavon Ng FNP-C [address] [place] [address] documented as of this encounter Visit Diagnoses Not on filedocumented in this encounter Care Teams Patrol Judge Relationship Specialty Start Date End Date Jessica Santamaria MD [address] [place], [place] PCP - General 04/04/19 documented as of this encounter
--- OUTSIDE RECORDS SUMMARY | 2025-03-19 07:46 | XMS_ITS | Encounter Summary ---
Author Organization [facility] Address [address] [place] [address] Phone Care Team Providers Care Tumbling Barrel Painter Name Role Phone Jessica Santamaria MD Primary Care Provider [phone] Encounter Details Date Type Department Care Team (Late Contact Info) Description 09/28/2023 Documentation Only [facility] [place], [address] [address] [place] [address] [place], [place] [address] [place] [address] Social History Tobacco Use Types [...] Support [facility] [place] [address] [place] [address] Shavon Ng FNP-C [address] [place] [address] documented as of this encounter Visit Diagnoses Not on filedocumented in this encounter Care Teams Tumbling Barrel Painter Relationship Specialty Start Date End Date Jessica Santamaria MD [address] [place], [place] PCP - General 04/04/19 documented as of this encounter
--- OUTSIDE RECORDS SUMMARY | 2025-03-19 07:46 | XMS_ITS | Encounter Summary ---
Author Organization [facility] [place], Address [address] [place] [address] Phone Care Team Providers Care Accident Report Clerk Name Role Phone Jessica Santamaria MD Primary Care Provider [phone] Reason for Visit * Reason Comments Med Refill Encounter Details Date Type Department Care Team (Late st Contact Info) Description 07/20/2023 Refill [facility] [address] [place] [address] Rony Donato PA [address] [place] [address] [place] [address] Social History Tobacco Use Types Packs/Day [...] & Transplant Services [facility] [address] [place] [address] Shavon Ng FNP-C [address] [place] [address] documented as of this encounter Visit Diagnoses Not on filedocumented in this encounter Care Teams Accident Report Clerk Relationship Specialty Start Date End Date Jessica Santamaria MD [address] [place], [place] PCP - General 04/04/19 documented as of this encounter
--- OUTSIDE RECORDS SUMMARY | 2025-03-19 07:46 | XMS_ITS | Encounter Summary ---
Author Organization [facility] [place], Address [address] [place] [address] Phone Care Team Providers Care Purchasing Clerk Name Role Phone Jessica Santamaria MD Primary Care Provider [phone] Reason for Visit * Reason Comments Med Refill Encounter Details Date Type Department Care Team (Late st Contact Info) Description 06/20/2021 Refill [facility] [address] [place] [address] Rony Donato PA [address] [place] [address] [place] [address] Social History Tobacco Use Types [...] Clinical Support [facility] Services [facility] [address] [place] [address] Shavon Ng FNP-C [address] [place] [address] documented as of this encounter Visit Diagnoses Not on filedocumented in this encounter Care Teams Purchasing Clerk Relationship Specialty Start Date End Date Jessica Santamaria MD [address] [place], [place] PCP - General 04/04/19 documented as of this encounter
--- OUTSIDE RECORDS SUMMARY | 2025-03-19 07:46 | XMS_ITS | Encounter Summary ---
Author Organization [facility] Address [address] [place] [address] Phone Care Team Providers Care Floor Covering Printer Name Role Phone Jessica Santamaria MD Primary Care Provider [phone] Encounter Details Date Type Department Care Team (Late Contact Info) Description 09/20/2023 Documentation Only [facility] [place], [address] [place] [address] [place], [place] [address] [place] [address] Social History Tobacco Use Types [...] Support [facility] [place] [address] [place] [address] Shavon Ng FNP-C [address] [place] [address] documented as of this encounter Visit Diagnoses Not on filedocumented in this encounter Care Teams Floor Covering Printer Relationship Specialty Start Date End Date Jessica Santamaria MD [address] [place], [place] PCP - General 04/04/19 documented as of this encounter
--- OUTSIDE RECORDS SUMMARY | 2025-03-19 07:46 | XMS_ITS | Encounter Summary ---
Author Organization [facility] Of [facility] Address [address] [place] [address] Phone Care Team Providers Care Tilesetter Name Role Phone Jessica Santamaria MD Primary Care Provider [phone] Encounter Details Date Type Department Care Team (Late Contact Info) Description 02/16/2024 Documentation Only [facility] [place], [address] [place] [address] [place], [place] [address] [place] [address] Social History Tobacco Use Types [...] Support [facility] [place] [address] [place] [address] Shavon Ng FNP-C [address] [place] [address] documented as of this encounter Visit Diagnoses Not on filedocumented in this encounter Care Teams Tilesetter Relationship Specialty Start Date End Date Jessica Santamaria MD [address] [place], [place] PCP - General 04/04/19 documented as of this encounter
--- OUTSIDE RECORDS SUMMARY | 2025-03-19 07:46 | XMS_ITS | Encounter Summary ---
Author Organization [facility] Address [address] [place] [address] Phone Care Team Providers Care Shellfish Checker Name Role Phone Jessica Santamaria MD Primary Care Provider [phone] Encounter Details Date Type Department Care Team (Late Contact Info) Description 09/20/2023 Documentation Only [facility] [place], [address] [address] [place], [place] [address] [place] [address] Social History Tobacco Use Types [...] Support [facility] [place] [address] [place] [place] [address] Shavon Ng FNP-C [address] [place] [place] [address] documented as of this encounter Visit Diagnoses Not on filedocumented in this encounter Care Teams Shellfish Checker Relationship Specialty Start Date End Date Jessica Santamaria MD [address] [place], [place] PCP - General 04/04/19 documented as of this encounter
--- OUTSIDE RECORDS SUMMARY | 2025-03-19 07:46 | XMS_ITS | Encounter Summary ---
Author Organization [facility] [place], Address [address] [place] [address] Phone Care Team Providers Care Fence Post Driver Name Role Phone Jessica Santamaria MD Primary Care Provider [phone] Reason for Visit * Reason Comments Med Refill Encounter Details Date Type Department Care Team (Late st Contact Info) Description 06/23/2022 Refill [facility] [address] [place] [address] Rony Donato PA [address] [place] [address] [place] [address] Social History Tobacco Use Types Packs/Day [...] Clinical Support [facility] [address] [place] [address] Shavon Ng FNP-C [address] [place] [address] documented as of this encounter Visit Diagnoses Not on filedocumented in this encounter Care Teams Fence Post Driver Relationship Specialty Start Date End Date Jessica Santamaria MD [address] [place], [place] PCP - General 04/04/19 documented as of this encounter
--- OUTSIDE RECORDS SUMMARY | 2025-03-19 07:46 | XMS_ITS | Encounter Summary ---
Author Organization [facility] Address [address] [place] [address] Phone Care Team Providers Care Weed Burner Name Role Phone Jessica Santamaria MD Primary Care Provider [phone] Encounter Details Date Type Department Care Team (Late Contact Info) Description 03/12/2025 Documentation Only [facility] [place], [address] [place] [address] [place], [place] [address] [place] [address] Social History Tobacco Use Types [...] Support [facility] [place] [address] [place] [address] Shavon Ng FNP-C [address] [place] [address] documented as of this encounter Visit Diagnoses Not on filedocumented in this encounter Care Teams Weed Burner Relationship Specialty Start Date End Date Jessica Santamaria MD [address] [place], [place] PCP - General 04/04/19 documented as of this encounter
--- OUTSIDE RECORDS SUMMARY | 2025-03-19 07:46 | XMS_ITS | Encounter Summary ---
Author Organization [facility] Address [address] [place] [address] Phone Care Team Providers Care Geophysical Laboratory Supervisor Name Role Phone Jessica Santamaria MD Primary Care Provider [phone] Encounter Details Date Type Department Care Team (Late Contact Info) Description 04/28/2024 Documentation Only [facility] [place], [address] [place] [address] [place], [place] [address] [place] [address] Social History Tobacco Use Types [...] Support [facility] [place] [address] [place] [address] Shavon Ng FNP-C [address] [place] [address] documented as of this encounter Visit Diagnoses Not on filedocumented in this encounter Care Teams Geophysical Laboratory Supervisor Relationship Specialty Start Date End Date Jessica Santamaria MD [address] [place], [place] PCP - General 04/04/19 documented as of this encounter
--- OUTSIDE RECORDS SUMMARY | 2025-03-19 07:46 | XMS_ITS | Clinical Summary ---
Author Organization [facility] [place], Address [address] [place] [address] [place] [address] Phone Care Team Providers Care It Corporate Recruiter Name Role Phone Jessica Santamaria MD Primary Care Provider [phone] Allergies Active Allergy Reactions Criticality Noted Date [...] (one) time each day 5 Active Pancrelipase, Yga-Kzrx-Ivtb, (CREON PO) Take by mouth in the [...] Only [facility] [address] [place] [address] Hiwot Smith [place] 02/14/2025 Orders Only [facility] [address] [place] [address] Zoe Vásquez, RN History of renal transplant (Primary Dx); History of immunosuppressive therapy; Stage 3b chronic kidney disease (HCC) 02/14/2025 Telephone [facility] [address] [place] [address] Zoe Vásquez, ANABELL 02/09/2025 Telephone [facility] [address] [place] [address] Zoe Vásquez, ANABELL 02/08/2025 4:15 PM EDT Clinical Support [facility] [address] [place] [address] Shavon Ng FNP-C Essential hypertension (Primary Dx); History of renal transplant; History of immunosuppressive therapy; Stage 3a chronic kidney disease (HCC) 02/01/2025 Orders Only [facility] [address] [place] [address] Hiwot Smith [place] Kidney replaced by transplant [...] 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) 01/23/2025 Documentation Only [facility] [address] [place] [address] Hiwot Smith [place] 01/16/2025 Telephone [facility] [address] [place] [address] Antonia Jackson 01/15/2025 10:00 AM EDT Procedure visit [facility] [address] [place] [address] Tereso Arrieta MD End stage renal disease (HCC) (Primary Dx); Other mechanical complication of surgically created arteriovenous fistula, initial encounter (HCC) 01/15/2025 Telephone [facility] [address] [place] [address] Katharina Butt 01/12/2025 Telephone [facility] [address] [place] [address] Antonia Jackson from Last 3 Months Immunizations [...] Support [facility] [place] [address] [place] [address] Shavon Ng FNP-C [address] [place] [id number] Health Maintenance Due Date Last Done Comments [...] AM EDT) Hemoglobin A1C 6.4(H) (4.0-5.6) % [facility] Comment: MONITORING: In known diabetic patients, hemoglobin [...] Supplement 1 Testing performed or reported by [facility], a Service of [facility], [address] [place] [address] Tate Pham MD, Dietary Manager [facility]# [id number] Blood specimen (specimen) Venous blood / Unknown 11/13/2022 9:47 AM EDT 11/13/2022 9:48 AM EDT Rony MEHTA [facility] BLOOD ORDERABLES Final Re sult [facility] from Last 3 Months or Most Recently Relevant to Health Maintenance Insurance [facility] Medicaid Care Teams It Corporate Recruiter Relationship Specialty Start Date End Date Jessica Santamaria MD [address] [place], [place] PCP - General 04/04/19
--- OUTSIDE RECORDS SUMMARY | 2025-03-19 07:46 | XMS_ITS | Encounter Summary ---
Author Organization [facility] [place], Address [address] [address] Phone Care Team Providers Care Brine Plant Operator Name Role Phone Jessica Santamarai MD Primary Care Provider [phone] Reason for Visit * Reason Comments Med Refill Encounter Details Date Type Department Care Team (Late st Contact Info) Description 07/13/2022 Refill [facility] [address] [place] [address] Alvaro Stratton MD [address] [place] [address] [place] [address] Social History Tobacco Use Types [...] & Transplant Services [facility] [address] [place] [address] Shavon Ng FNP-C [address] [place] [place] [address] documented as of this encounter Visit Diagnoses Not on filedocumented in this encounter Care Teams Brine Plant Operator Relationship Specialty Start Date End Date Jessica Santamaria MD [address] [place], [place] PCP - General 04/04/19 documented as of this encounter
--- OUTSIDE RECORDS SUMMARY | 2025-03-19 07:46 | XMS_ITS | Encounter Summary ---
Author Organization [facility] Address [address] [place] [address] Phone Care Team Providers Care English Tutor Name Role Phone Jessica Santamaria MD Primary Care Provider Encounter Details Date Type Department Care Team (Late Contact Info) Description 09/18/2024 Documentation Only [facility] [place], [address] [place] [address] [place], [place] [address] [place] [address] Social History Tobacco Use [...] Support [facility] [place] [address] [place] [address] Shavon Ng FNP-C [address] [place] [address] documented as of this encounter Visit Diagnoses Not on filedocumented in this encounter Care Teams English Tutor Relationship Specialty Start Date End Date Jessica Santamaria MD [address] [place], [place] PCP - General 04/04/19 documented as of this encounter
--- NOTE | 2025-03-19 08:04 | A.OFFPC_ITS ---
Vital Signs 03/19/25 08:05 Height 5 ft Weight 148 lb 6 oz BMI 29.0 BP 124/62 Blood Pressure Location Rt brachial Position Sitting Pulse 75 Pulse Source Pulse Oximeter Temp 98.4 F Temp Source Temporal Artery Scan Pulse Oximetry (%) 97 Oxygen Delivery Method Room Air Intake Visit Reasons: Thyroid referral request Optics Test Technician Required: No Accompanied by: Self / Same As Patient Allergies amlodipine Adverse Reaction (Intermediate, Verified 03/19/25 08:12) leg edema morphine Adverse Reaction (Mild, Verified 03/19/25 08:12) Rash Medication List - Last Reconciled 03/19/25 by Jessica Dietz MD acetaminophen 1,000 mg (2 x 500 mg) PO Q6H albuterol sulfate 90 mcg/actuation (Ventolin HFA) 1 inh inhalation Q4-6H PRN alcohol swabs (Alcohol Prep Pads) 1 pad topical BID atorvastatin 40 mg PO BEDTIME 90 days blood sugar diagnostic (FreeStyle Lite Strips) Use 1 test strip once a day blood-glucose meter (FreeStyle Lite Meter kit) As directed calcitriol 0.25 mcg PO DAILY dapagliflozin propanediol (Farxiga) 10 mg PO DAILY fluticasone propionate 50 mcg/actuation 1 spray intranasal BID labetalol 200 mg PO BID 90 days lancets (FreeStyle Lancets) Use 1 lancet once a day levothyroxine (Levoxyl) 25 mcg PO DAILY 90 days linagliptin (Tradjenta) 5 mg PO DAILY 90 days lubiprostone (Amitiza) 24 mcg PO DAILY mycophenolate sodium 540 mg PO BID naloxegol (Movantik) 25 mg PO QAM nifedipine ER 60 mg PO DAILY 90 days oxycodone 5 mg PO Q8H PRN 28 days tacrolimus 7 mg PO DAILY Tobacco use date assessed: 03/19/25 Dental Screening Dental Screen Date: 03/19/25 Did you have a dental visit in the last 12 months?: Yes Did you have a dental problem in the last 6 months where you did not have access to dental care?: No Was dental information given to patient?: Patient has dentist HPI HPI Comments History of Present Illness Details The patient is a 59-year-old female presenting with a foot injury and chronic condition management. The patient has a history of hypothyroidism, managed with levothyroxine 25 mcg daily. She also has diabetes mellitus, with a recent A1c not available, and is on multiple medications including Farxiga and Trajenta. The patient has chronic kidney disease with a recent GFR of 39, improved from a previous value of 31. She underwent blood tests on March 12 to monitor kidney function, which showed normal sodium, potassium, and chloride levels. The patient sustained a nondisplaced fracture of the base of the fifth metatarsal on the left foot. She reports using a boot for immobilization and experiences pain when ambulating. The patient has lumbar radiculopathy, for which physical therapy has been recommended. The patient reports a history of gastritis and a hernia, with ongoing management. Hypertension is noted, with a history of amlodipine causing leg swelling, and current management includes nifedipine. [facility] Medical History (Updated 03/19/25 @ 08:31 by Jessica Dietz MD) Nondisplaced fracture of fifth metatarsal bone, left foot, initial encounter for closed fracture Nondisplaced fracture of base of fifth metacarpal bone Hx of sciatica CVA (cerebral vascular accident) Malnutrition Diabetes mellitus Right ankle pain Left ankle pain Fatigue Hair loss Back pain Pancreatic lesion Pneumonia due to COVID-19 virus Essential hypertension Surgical History History of esophagogastroduodenoscopy (EGD) Hx of colonoscopy Kidney transplant recipient AV fistula Kidney transplant status History of tubal ligation History of foot surgery History of lipoma History of benign breast tumor Family History Father CVD (cardiovascular disease) Prostate cancer Mother No problems noted. Social History Household Members: Children Housing: Apartment Alcohol intake: never Patient Tobacco Use Status: Former Tobacco user Tobacco use type: Cigarette e-Cigarette/Vaping Use: Never Used Second Hand Smoke Exposure: No service: No Current occupational status: unemployed Cognitive needs: No Hearing needs: No Vision needs: Yes Questionnaire PHQ-9 Over the last 2 weeks, how often have you been bothered by any of the following problems? 1. Little interest or pleasure in doing things: several days 2. Feeling down, depressed, or hopeless: several days 3. Trouble falling or staying asleep, or sleeping too much: nearly every day 4. Feeling tired or having little energy: nearly every day 5. Poor appetite or overeating: more than half the days 6. Feeling bad about yourself - or that you are a failure or have let yourself or your family down: not at all 7. Trouble concentrating on things, such as reading the newspaper or watching television: more than half the days 8. Moving or speaking so slowly that other people could have noticed. Or the opposite - being so fidgety or restless that you have been moving around a lot more than usual: several days 9. Thoughts that you would be better off or of hurting yourself in some way: not at all Total score: 13 Depression Screening Interpretation: Positive Depression Screening Follow-up: Existing condition, Follow-up Visit Requested and Declines treatment Depression Screening Done: Yes 97048 - PHQ-9 Billing: Yes Source: Developed by Drs. Tereso Jones, Marilyn Cedeno, oHmer Huston and colleagues, with an educational catrina from [employer]. Thrive Questionnaire Date Thrive assessed: 09/27/24 I am a: Patient What is your living situation today?: I have a steady place to live Within the past 12 months, did the food you bought not last and you didn't have the money to get more?: Sometimes True Within the past 12 months, did you worry whether your food would run out before you got money to buy more?: Often true Do you have trouble paying for medicines?: No Do you have trouble getting transportation to medical appointments?: No Do you have trouble paying your heating and electricity bill?: Yes Do you have trouble taking care of your child, family member or friend?: I choose not to answer this question Do you have trouble with day-to-day activities such as bathing, preparing meals, shopping, managing finances, etc.?: No Are you currently unemployed and looking for a job?: No Are you interested in more education?: No Please select the resources that you would like help with: Food Currently or been in a relationship where the following occur: No concerns reported THRIVE Score: 3 AUDIT C Alcohol Use Questionnaire (AUDIT-C) 1. How often do you have a drink containing alcohol?: Never 3. How often do you have six or more drinks on one occasion?: Never Total Score: 0 Score Reviewed/Action Taken: No JONNIE-7 AMB Questionnaire JONNIE-7 Date JONNIE - 7 assessed: 01/23/25 Feeling nervous, anxious, or on edge: 1 = Several days Not being able to stop or control worryin = Several days Worrying too much about different things: 2 = More than half the days Trouble relaxin = Not at all Being so restless that it is hard to sit still: 1 = Several days Becoming easily annoyed or irritable: 1 = Several days Feeling afraid as if something awful might happen: 1 = Several days Total JONNIE-7 score (0-4 normal; 5-9 mild; 10-14 moderate; 15-21 severe): 7 Source: Developed by Drs. Tereso Jones, Marilyn Cedeno, Homer Huston and colleagues, with an educational catrina from [employer]. JONNIE-7 Assessment Billing JONNIE-7 Assessment Tool: JONNIE-7 Assessment 87633 Review of Systems Const All systems reviewed & are unremarkable except as noted in HPI and below Card Denies chest pain at rest, Denies chest pain with activity, Denies edema, Denies irregular heart rhythm, Denies claudication, Denies dyspnea, Denies dyspnea on exertion, Denies orthopnea, Denies paroxysmal nocturnal dyspnea and Denies slow heart rate Resp Denies cough, Denies dyspnea and Denies dyspnea on exertion GI Denies abdominal pain, Denies change in bowel habits, Denies excessive flatus, Denies nausea and Denies vomiting Physical exam (Primary Care) Vital Signs: Last Vital Signs Temp 98.4 F 03/19/25 08:05 Pulse 75 03/19/25 08:05 BP 124/62 03/19/25 08:05 Pulse Ox 97 03/19/25 08:05 Oxygen Delivery Method Room Air 03/19/25 08:05 BMI result Body Mass Index 23.9 Tobacco/Smoking Status: Tobacco use Status Tobacco use date assessed 03/19/25 03/19/25 08:08 Patient Tobacco Use Status Former Tobacco user 03/19/25 08:08 Tobacco use type Cigarette 03/19/25 08:08 e-Cigarette/Vaping Use Never Used 03/19/25 08:08 PHQ-9: PHQ-9 Score PHQ-9: Total score 13 03/19/25 08:08 Depression Screening Interpretation: Positive Depression Screening Follow-up: Existing condition, Follow-up Visit Requested and Declines treatment Thrive Assessment: Date of Thrive Assessment Date Thrive assessed 09/27/24 03/19/25 08:08 Currently or been in a relationship where the following occur: No concerns reported Resp Effort & Inspection: normal respiratory effort Auscultation: clear to auscultation bilaterally Cardio Jugular venous distension: no JVD Rate: regular rate Rhythm: regular rhythm Heart sounds: S1 normal heart sound present and S2 normal heart sound present Extrem General: Yes full ROM Coding Level of Care Code Est Pt Level 4 (38154) Complex EM visit Add On G2211 Diagnoses Essential hypertension I10 Hyperlipidemia LDL goal <70 E78.5 Type 2 diabetes mellitus with hyperglycemia, without long-term current use of insulin E11.65 Diabetes mellitus type: type 2 Diabetes mellitus 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 insulin use: without 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 use Diabetes mellitus complication status: with hyperglycemia Hypothyroidism E03.9 Stage 3b chronic kidney disease N18.32 Chronic kidney disease stage 3 subtype: stage 3b (GFR 30-44) Nondisplaced fracture of fifth metatarsal bone, left foot, initial encounter for closed fracture S92.355A Lumbar radiculopathy M54.16 Additional Codes PHQ-9 - 97346 - PHQ-9 Billing: Yes ([id number]) JONNIE-7 Assessment Billing - JONNIE-7 Assessment Tool: JONNIE-7 Assessment 26443 ([id number]) Time Spent (min) 22 Assessment & Plan Assessment & Plan (1) Essential hypertension: Code(s): I10 - Essential (primary) hypertension Category: Medical (2) Hyperlipidemia LDL goal <70: Code(s): E78.5 - Hyperlipidemia, unspecified Category: Medical (3) Diabetes mellitus: Code(s): E11.9 - Type 2 diabetes mellitus without complications Category: Medical Qualifiers: Diabetes mellitus type: type 2 Diabetes mellitus 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 insulin use: without long-term use Diabetes mellitus complication status: with hyperglycemia Qualified Code(s): E11.65 - Type 2 diabetes mellitus with hyperglycemia (4) Hypothyroidism: Code(s): E03.9 - Hypothyroidism, unspecified Category: Medical (5) CKD (chronic kidney disease) stage 3, GFR 30-59 ml/min: Code(s): N18.30 - Chronic kidney disease, stage 3 unspecified Category: Medical Qualifiers: Chronic kidney disease stage 3 subtype: stage 3b (GFR 30-44) Qualified Code(s): N18.32 - Chronic kidney disease, stage 3b (6) Nondisplaced fracture of fifth metatarsal bone, left foot, initial encounter for closed fracture: Code(s): S92.355A - Nondisplaced fracture of fifth metatarsal bone, left foot, initial encounter for closed fracture Category: Medical (7) Lumbar radiculopathy: Code(s): M54.16 - Radiculopathy, lumbar region Category: Medical Plan Plan Patient was informed and verbally consented to the use of an ambient scribe for clinic note documentation during this visit. 1. Hypothyroidism The patient will be referred for a thyroid ultrasound to evaluate the slight goiter noted during the visit. 2. Diabetes Mellitus The patient requires an updated A1c test to assess current glycemic control. 3. Chronic Kidney Disease The patient will continue monitoring kidney function with regular blood tests, as recent labs showed improvement in GFR. 4. Fracture Of The Fifth Metatarsal The patient is advised to continue using a boot for immobilization and will be referred to podiatry for further management. 5. Lumbar Radiculopathy Physical therapy has been recommended to manage symptoms of lumbar radiculopathy. 6. Hypertension The patient is currently managed with nifedipine, and no changes to the regimen were discussed. Orders: Orders Microalbumin, Random (w Creat) Today R80.9 - Proteinuria, unspecified Comprehensive [place]. Panel Fast Today E11.65 - Type 2 diabetes mellitus with hyperglycemia Thyroid Stimulating Hormone Today E03.9 - Hypothyroidism, unspecified PT Evaluation and Treatment Today M54.16 - Radiculopathy, lumbar region Lipid Panel Today E78.5 - Hyperlipidemia, unspecified Vitamin D 25-OH Total Today E55.9 - Vitamin D deficiency, unspecified Vitamin B12 and Folate Today E53.8 - Deficiency of other specified B group vitamins Hemoglobin A1c Today E11.9 - Type 2 diabetes mellitus without complications Free T4 (Free Thyroxine) Today E03.9 - Hypothyroidism, unspecified US thyroid Today E04.9 - Nontoxic goiter, unspecified Referrals Podiatry Referral S92.353A - Displaced fracture of fifth metatarsal bone, unspecified foot, initial encounter for closed fracture
[2025-03-19 08:05] VITALS: BP 124/62; PULSE 75; TEMP 36.9; O2SAT 97; BMI 29.0
== END 2025-03-19 08:32 | disposition home or self-care (01) ==
LOC: HO.HMCH 07:41
PROVIDERS: PCP Internal Medicine; Visit Provider Internal Medicine
DX: I10 Essential (primary) hypertension (principal); E78.5 Hyperlipidemia, unspecified; E11.65 Type 2 diabetes mellitus with hyperglycemia; E03.9 Hypothyroidism, unspecified; N18.32 Chronic kidney disease, stage 3b; S92.355A Nondisplaced fracture of fifth metatarsal bone, left foot, initial encounter for closed fracture; M54.16 Radiculopathy, lumbar region

== ENCOUNTER 2025-03-23 08:23 | Outpatient (REF) | payer OTHER, SELFPAY ==
--- NOTE | ~2025-03-23 | XR_ITS ---
EXAMINATION: XR FOOT, LEFT CLINICAL INFORMATION: S99.922A - Unspecified injury of left foot, initial encounter COMPARISON: March 06, 2025 TECHNIQUE: AP, lateral, and oblique views of the left foot. FINDINGS: Again seen is a transverse fracture through the proximal metaphysis of the fifth metatarsal extending into the intermetatarsal joint. No other fractures are identified. No changes are noted. An os trigonum is incidentally noted. Also, there is ossification in the distal Achilles tendon near the calcaneal enthesophytes. XR/XR foot LT min 3V IMPRESSION: Stable Alfred fracture. Electronically signed by: Severiano Hannah MD 03/23/2025 10:19 AM EDT
--- OUTSIDE RECORDS SUMMARY | 2025-03-23 10:38 | XMS_ITS | Encounter Summary ---
Author Organization [facility] Address [address] [place] [address] Phone Care Team Providers Care Vp Compliance Name Role Phone Jessica Santamaria MD Primary Care Provider [phone] Encounter Details Date Type Department Care Team (Late Contact Info) Description 11/18/2023 Documentation Only [facility] [place], [address] [place] [address] [place], [place] [address] [place] [address] Social History Tobacco Use Types [...] Support [facility] [place] [address] [place] [address] Shavon Ng FNP-C [address] [place] [address] documented as of this encounter Visit Diagnoses Not on filedocumented in this encounter Care Teams Vp Compliance Relationship Specialty Start Date End Date Jessica Santamaria MD [address] [place], [place] PCP - General 04/04/19 documented as of this encounter
--- OUTSIDE RECORDS SUMMARY | 2025-03-23 10:38 | XMS_ITS | Encounter Summary ---
Author Organization [facility] Address [address] [place] [address] Phone Care Team Providers Care Chief Science Officer Name Role Phone Jessica Santamaria MD Primary Care Provider [phone] Encounter Details Date Type Department Care Team (Late Contact Info) Description 09/27/2024 Documentation Only [facility] [place], [address] [place] [address] [place], [place] [address] [place] [address] Social History Tobacco Use Types [...] [facility] [place] [address] [place] [address] Shavon Ng FNP-C [address] [place] [address] documented as of this encounter Visit Diagnoses Not on filedocumented in this encounter Care Teams Chief Science Officer Relationship Specialty Start Date End Date Jessica Santamaria MD [address] [place], [place] PCP - General 04/04/19 documented as of this encounter
--- OUTSIDE RECORDS SUMMARY | 2025-03-23 10:38 | XMS_ITS | Encounter Summary ---
Author Organization [facility] [place], Address [address] [place] [address] Phone Care Team Providers Care Rfid Engineer Name Role Phone Jessica Santamaria MD Primary Care Provider [phone] Reason for Visit * Reason Comments Med Refill Encounter Details Date Type Department Care Team (Late st Contact Info) Description 06/11/2021 Refill [facility] [address] [place] [address] Rony Donato PA [address] [place] [address] [place] [address] Social History Tobacco Use Types [...] Clinical Support [facility] [address] [place] [place] [address] Shavon Ng FNP-C [address] [place] [address] documented as of this encounter Visit Diagnoses Not on filedocumented in this encounter Care Teams Rfid Engineer Relationship Specialty Start Date End Date Jessica Santamaria MD [address] [place], [place] PCP - General 04/04/19 documented as of this encounter
--- OUTSIDE RECORDS SUMMARY | 2025-03-23 10:38 | XMS_ITS | Encounter Summary ---
Author Organization [facility] Address [address] [place] [address] Phone Care Team Providers Care Plaster Die Maker Name Role Phone Jessica Santamaria MD Primary Care Provider [phone] Encounter Details Date Type Department Care Team (Late Contact Info) Description 09/28/2023 Documentation Only [facility] [place], [address] [place] [address] [place], [place] [address] [place] [address] Social History Tobacco Use Types [...] [facility] [place] [address] [place] [address] Shavon Ng FNP-C [address] [place] [address] documented as of this encounter Visit Diagnoses Not on filedocumented in this encounter Care Teams Plaster Die Maker Relationship Specialty Start Date End Date Jessica Santamaria MD [address] [place], [place] PCP - General 04/04/19 documented as of this encounter
--- OUTSIDE RECORDS SUMMARY | 2025-03-23 10:38 | XMS_ITS | Clinical Summary ---
Author Organization [facility] [place], Address [address] [place] [address] [place] [address] Phone Care Team Providers Care Longwall Shearer Operator Name Role Phone Jessica Santamaria MD Primary Care Provider [phone] Allergies Active Allergy Reactions Criticality Noted Date [...] (one) time each day 5 Active Pancrelipase, Prt-Ljdw-Gylb, (CREON PO) Take by mouth in the [...] [facility] [address] [place] [address] Hiwot Smith [place] 02/14/2025 Orders Only [facility] [address] [place] [address] Zoe Vásquez, RN History of renal transplant (Primary Dx); History of immunosuppressive therapy; Stage 3b chronic kidney disease (HCC) 02/14/2025 Telephone [facility] [address] [place] [address] Zoe Vásquez, ANABELL 02/09/2025 Telephone [facility] [address] [place] [address] Zoe Vásquez, ANABELL 02/08/2025 4:15 PM EDT Clinical Support [facility] [address] [place] [address] Shavon Ng FNP-C Essential hypertension (Primary Dx); History of renal transplant; History of immunosuppressive therapy; Stage 3a chronic kidney disease (HCC) 02/01/2025 Orders Only [facility] [address] [place] [address] Hiwot Smith [place] Kidney replaced by transplant [...] [facility] Access [address] [place] [address] Damian Norris MD 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) 01/23/2025 Documentation Only [facility] [address] [place] [address] Hiwot Smith [place] 01/16/2025 Telephone [facility] [address] [place] [address] Antonia Jackson 01/15/2025 10:00 AM EDT Procedure visit [facility] [address] [place] [address] Tereso Arrieta MD End stage renal disease (HCC) (Primary Dx); Other mechanical complication of surgically created arteriovenous fistula, initial encounter (HCC) 01/15/2025 Telephone [facility] [address] [place] [address] Katharina Butt 01/12/2025 Telephone [facility] [address] [place] [address] Antonia Jackson from Last 3 Months Immunizations [...] Support [facility] [place] [address] [place] [address] Shavon Ng FNP-C [address] [place] [id number] Health Maintenance Due Date Last Done Comments [...] EDT) Hemoglobin A1C 6.4(H) (4.0-5.6) % [facility] Comment: MONITORING: In known diabetic patients, hemoglobin A1c targets should be discussed with health care provider. DIAGNOSTIC USE: The [place] Diabetes Association (ADA) and the World [...] Supplement 1 Testing performed or reported by [facility], a Service of [facility], [address] [place] [address] Tate Pham MD, Exploration Engineer [facility]# [id number] Blood specimen (specimen) Venous blood / Unknown 11/13/2022 9:47 AM EDT 11/13/2022 9:48 AM EDT Rony [facility] BLOOD ORDERABLES Final Re sult [facility] from Last 3 Months or Most Recently Relevant to Health Maintenance Insurance [facility] Medicaid Care Teams Longwall Shearer Operator Relationship Specialty Start Date End Date Jessica Santamaria MD [address] [place], [place] PCP - General 04/04/19
--- OUTSIDE RECORDS SUMMARY | 2025-03-23 10:38 | XMS_ITS | Encounter Summary ---
Author Organization [facility] [place], Address [address] [place] [address] Phone Care Team Providers Care Automobile Detailer Name Role Phone Jessica Santamaria MD Primary Care Provider [phone] Reason for Visit * Reason Comments Med Refill Encounter Details Date Type Department Care Team (Late st Contact Info) Description 06/20/2021 Refill [facility] [address] [place] [address] Rony Donato PA [address] [place] [address] [place] [address] Social History Tobacco Use Types [...] Clinical Support [facility] [address] [place] [address] Shavon Ng FNP-C [address] [place] [place] [address] documented as of this encounter Visit Diagnoses Not on filedocumented in this encounter Care Teams Automobile Detailer Relationship Specialty Start Date End Date Jessica Santamaria MD [address] [place], [place] PCP - General 04/04/19 documented as of this encounter
--- OUTSIDE RECORDS SUMMARY | 2025-03-23 10:38 | XMS_ITS | Encounter Summary ---
Author Organization [facility] Address [address] [place] [address] Phone Care Team Providers Care Eyelet Cutter Name Role Phone Jessica Santamaria MD Primary Care Provider [phone] Encounter Details Date Type Department Care Team (Late Contact Info) Description 01/23/2025 Documentation Only [facility] [place], [address] [place] [address] [place], [place] [address] [place] [address] Social History Tobacco Use Types [...] Support [facility] [place] [address] [place] [address] Shavon Ng FNP-C [address] [place] [address] documented as of this encounter Visit Diagnoses Not on filedocumented in this encounter Care Teams Eyelet Cutter Relationship Specialty Start Date End Date Jessica Santamaria MD [address] [place], [place] PCP - General 04/04/19 documented as of this encounter
--- OUTSIDE RECORDS SUMMARY | 2025-03-23 10:38 | XMS_ITS | Encounter Summary ---
Author Organization [facility] Address [address] [place] [address] Phone Care Team Providers Care Lead Machinist Name Role Phone Jessica Santamaria MD Primary Care Provider [phone] Encounter Details Date Type Department Care Team (Late Contact Info) Description 02/16/2024 Documentation Only [facility] [place], [address] [place] [address] [place], [place] [address] [place] [address] Social History Tobacco Use Types [...] Support [facility] [place] [address] [place] [address] Shavon Ng FNP-C [address] [place] [address] documented as of this encounter Visit Diagnoses Not on filedocumented in this encounter Care Teams Lead Machinist Relationship Specialty Start Date End Date Jessica Santamaria MD [address] [place], [place] PCP - General 04/04/19 documented as of this encounter
--- OUTSIDE RECORDS SUMMARY | 2025-03-23 10:38 | XMS_ITS | Encounter Summary ---
Author Organization [facility] Address [address] [place] [address] Phone Care Team Providers Care Marine Welder Name Role Phone Jessica Santamaria MD Primary Care Provider [phone] Encounter Details Date Type Department Care Team (Late Contact Info) Description 09/18/2024 Documentation Only [facility] [place], [address] [place] [address] [place], [place] [address] [place] [address] Social History Tobacco Use Types [...] Support [facility] [place] [address] [place] [address] Shavon Ng FNP-C [address] [place] [address] documented as of this encounter Visit Diagnoses Not on filedocumented in this encounter Care Teams Marine Welder Relationship Specialty Start Date End Date Jessica Santamaria MD [address] [place], [place] PCP - General 04/04/19 documented as of this encounter
--- OUTSIDE RECORDS SUMMARY | 2025-03-23 10:38 | XMS_ITS | Encounter Summary ---
Author Organization [facility] Address [address] [place] [address] Phone Care Team Providers Care Continuous Improvement Coordinator Name Role Phone Jessica Santamaria MD Primary Care Provider Encounter Details Date Type Department Care Team (Late Contact Info) Description 06/30/2024 Documentation Only [facility] [place], [address] [place] [address] [place], [place] [address] [place] [address] Social History Tobacco Use Types [...] Services Of [place] [address] [place] [address] Shavon Ng FNP-C [address] [place] [address] documented as of this encounter Visit Diagnoses Not on filedocumented in this encounter Care Teams Continuous Improvement Coordinator Relationship Specialty Start Date End Date Jessica Santamaria MD [address] [place], [place] PCP - General 04/04/19 documented as of this encounter
--- OUTSIDE RECORDS SUMMARY | 2025-03-23 10:38 | XMS_ITS | Encounter Summary ---
Author Organization [facility] [place], Address [address] [place] [address] Phone Care Team Providers Care Budget Analyst Name Role Phone Jessica Santamaria MD Primary Care Provider [phone] Reason for Visit * Reason Comments Med Refill Encounter Details Date Type Department Care Team (Late st Contact Info) Description 06/23/2021 Refill [facility] [address] [place] [address] Rony Donato PA [address] [place] [address] [place] [address] Social History Tobacco Use Types [...] Services [facility] [address] [place] [address] Shavon Ng FNP-C [address] [place] [address] documented as of this encounter Visit Diagnoses Not on filedocumented in this encounter Care Teams Budget Analyst Relationship Specialty Start Date End Date Jessica Santamaria MD [address] [place], [place] PCP - General 04/04/19 documented as of this encounter
--- OUTSIDE RECORDS SUMMARY | 2025-03-23 10:38 | XMS_ITS | Encounter Summary ---
Author Organization [facility] Address [address] [place] [address] Phone Care Team Providers Care Non Garment Sewing Machine Operator Name Role Phone Jessica Santamaria MD Primary Care Provider [phone] Encounter Details Date Type Department Care Team (Late Contact Info) Description 06/30/2024 Documentation Only [facility] [place], [address] [place] [address] [place], [place] [address] [place] [address] Social History Tobacco Use [...] Support [facility] [place] [address] [place] [address] Shavon Ng FNP-C [address] [place] [address] documented as of this encounter Visit Diagnoses Not on filedocumented in this encounter Care Teams Non Garment Sewing Machine Operator Relationship Specialty Start Date End Date Jessica Santamaria MD [address] [place], [place] PCP - General 04/04/19 documented as of this encounter
--- OUTSIDE RECORDS SUMMARY | 2025-03-23 10:38 | XMS_ITS | Encounter Summary ---
Author Organization [facility] Address [address] [place] [address] Phone Care Team Providers Care Farm Owner Operator Name Role Phone Jessica Santamaria MD Primary Care Provider [phone] Encounter Details Date Type Department Care Team (Late Contact Info) Description 04/28/2024 Documentation Only [facility] [place], [address] [place] [address] [place], [place] [address] [place] [address] Social History Tobacco Use Types [...] Support [facility] [place] [address] [place] [address] Shavon Ng FNP-C [address] [place] [place] [address] documented as of this encounter Visit Diagnoses Not on filedocumented in this encounter Care Teams Farm Owner Operator Relationship Specialty Start Date End Date Jessica Santamaria MD [address] [place], [place] PCP - General 04/04/19 documented as of this encounter
--- OUTSIDE RECORDS SUMMARY | 2025-03-23 10:38 | XMS_ITS | Encounter Summary ---
Author Organization [facility] Address [address] [place] [address] Phone Care Team Providers Care Health Occupations Instructor Name Role Phone Jessica Santamaria MD Primary Care Provider [phone] Encounter Details Date Type Department Care Team (Late st Contact Info) Description 09/15/2024 Telephone [facility] [address] [place] [address] Karyn Ross Social History Tobacco [...] tender and painful. Please return the call [phone] - thank you documented in this encounter Plan of Treatment Upcoming Encounters Date Type Department Care Team (Late st Contact Info) Description 04/05/2025 2:00 PM EST Clinical Support [facility] [address] [place] [address] Shavon Ng, WEIGHT SHIFTER-C [address] [place] [address] documented as of this encounter Visit Diagnoses Not on filedocumented in this encounter Care Teams Health Occupations Instructor Relationship Specialty Start Date End Date Jessica Santamaria MD [address] [place] [address] PCP - General 04/04/19 documented as of this encounter
--- OUTSIDE RECORDS SUMMARY | 2025-03-23 10:39 | XMS_ITS | Encounter Summary ---
Author Organization [facility] Address [address] [address] Phone Care Team Providers Care Elementary School Principal Name Role Phone Jessica Santamaria MD Primary Care Provider [phone] Reason for Visit * Reason Comments Med Refill Encounter Details Date Type Department Care Team (Late st Contact Info) Description 04/12/2023 Refill [facility], [address] [address] Alvaro Stratton MD [address] [facility] [address] [facility] [place] [address] Social History Tobacco Use Types [...] Support [facility] [place] [address] [address] Shavon Ng FNP-C [address] [address] documented as of this encounter Visit Diagnoses Not on filedocumented in this encounter Care Teams Elementary School Principal Relationship Specialty Start Date End Date Jessica Santamaria MD [address] [place], [place] PCP - General 04/04/19 documented as of this encounter
--- OUTSIDE RECORDS SUMMARY | 2025-03-23 10:39 | XMS_ITS | Encounter Summary ---
Author Organization [facility] Address [address] [place] [address] Phone Care Team Providers Care Double Needle Operator Name Role Phone Jessica Santamaria MD Primary Care Provider [phone] Encounter Details Date Type Department Care Team (Late Contact Info) Description 09/20/2023 Documentation Only [facility] [place], [address] [place] [address] [place], [place] [address] [place] [address] Social History Tobacco Use Types [...] Support [facility] [place] [address] [place] [address] Shavon Ng FNP-C [address] [place] [address] documented as of this encounter Visit Diagnoses Not on filedocumented in this encounter Care Teams Double Needle Operator Relationship Specialty Start Date End Date Jessica Santamaria MD [address] [place], [place] PCP - General 04/04/19 documented as of this encounter
--- OUTSIDE RECORDS SUMMARY | 2025-03-23 10:39 | XMS_ITS | Encounter Summary ---
Author Organization [facility] [place], Address [address] [place] [address] Phone Care Team Providers Care Tub Rider Name Role Phone Jessica Santamaria MD Primary Care Provider [phone] Reason for Visit * Reason Comments Med Refill Encounter Details Date Type Department Care Team (Late st Contact Info) Description 06/23/2022 Refill [facility] [address] [place] [address] Rony Donato PA [address] [place] [address] [place] [address] Social History Tobacco Use Types Packs/Day [...] Support [facility] [address] [place] [address] Shavon Ng FNP-C [address] [place] [address] documented as of this encounter Visit Diagnoses Not on filedocumented in this encounter Care Teams Tub Rider Relationship Specialty Start Date End Date Jessica Santamaria MD [address] [place], [place] PCP - General 04/04/19 documented as of this encounter
--- OUTSIDE RECORDS SUMMARY | 2025-03-23 10:39 | XMS_ITS | Encounter Summary ---
Author Organization [facility], Address [address] [place] [address] Phone Care Team Providers Care Compress Engineer Name Role Phone Jessica Santamaria MD Primary Care Provider [phone] Reason for Visit * Reason Comments Med Refill Encounter Details Date Type Department Care Team (Late st Contact Info) Description 07/20/2023 Refill [facility] [address] [place] [address] Rony Donato PA [address] [place] [address] [place] [address] Social History Tobacco Use Types Packs/Day [...] Services [facility] [address] [place] [address] Shavon Ng FNP-C [address] [place] [address] documented as of this encounter Visit Diagnoses Not on filedocumented in this encounter Care Teams Compress Engineer Relationship Specialty Start Date End Date Jessica Santamaria MD [address] [place], [place] PCP - General 04/04/19 documented as of this encounter
--- OUTSIDE RECORDS SUMMARY | 2025-03-23 10:39 | XMS_ITS | Encounter Summary ---
Author Organization [facility] Address [address] [place] [address] Phone Care Team Providers Care Tennis Player Name Role Phone Jessica Santamaria MD Primary Care Provider [phone] Encounter Details Date Type Department Care Team (Late Contact Info) Description 08/20/2023 Documentation Only [facility] [place], [address] [place] [address] [place], [place] [address] [place] [address] Social History Tobacco Use Types [...] [facility] [place] [address] [place] [address] Shavon Ng FNP-C [address] [place] [address] documented as of this encounter Visit Diagnoses Not on filedocumented in this encounter Care Teams Tennis Player Relationship Specialty Start Date End Date Jessica Santamaria MD [address] [place], [place] PCP - General 04/04/19 documented as of this encounter
--- OUTSIDE RECORDS SUMMARY | 2025-03-23 10:39 | XMS_ITS | Encounter Summary ---
Author Organization [facility] Address [address] [place] [address] Phone Care Team Providers Care Dobby Loom Fixer Name Role Phone Jessica Santamaria MD Primary Care Provider [phone] Encounter Details Date Type Department Care Team (Late Contact Info) Description 03/12/2025 Documentation Only [facility] [place], [address] [place] [address] Hiwot SmithPRAIRIE [place], [place] [address] [place] [address] Social History Tobacco Use Types [...] Support [facility] [place] [address] [place] [address] Shavon Ng FNP-C [address] [place] [address] documented as of this encounter Visit Diagnoses Not on filedocumented in this encounter Care Teams Dobby Loom Fixer Relationship Specialty Start Date End Date Jessica Santamaria MD [address] [place], [place] PCP - General 04/04/19 documented as of this encounter
--- OUTSIDE RECORDS SUMMARY | 2025-03-23 10:39 | XMS_ITS | Encounter Summary ---
Author Organization [facility] Address [address] [place] [address] Phone Care Team Providers Care Investment Counselor Name Role Phone Jessica Santamaria MD Primary Care Provider [phone] Encounter Details Date Type Department Care Team (Late Contact Info) Description 09/20/2023 Documentation Only [facility] [place], [address] [place] [address] [place]ot [place]MC[place], [place] [address] [place] [address] Social History Tobacco Use Types [...] Support [facility] [place] [address] [place] [address] Shavon Ng FNP-C [address] [place] [address] documented as of this encounter Visit Diagnoses Not on filedocumented in this encounter Care Teams Investment Counselor Relationship Specialty Start Date End Date Jessica Santamaria MD [address] [place], [place] PCP - General 04/04/19 documented as of this encounter
--- OUTSIDE RECORDS SUMMARY | 2025-03-23 10:39 | XMS_ITS | Encounter Summary ---
Author Organization [facility] [place], Address [address] [address] Phone Care Team Providers Care Physical Science Professor Name Role Phone Jessica Santamaria MD Primary Care Provider [phone] Reason for Visit * Reason Comments Med Refill Encounter Details Date Type Department Care Team (Late st Contact Info) Description 07/13/2022 Refill [facility] [address] [place] [address] Alvaro Stratton MD [address] [place] [address] [place] [address] Social History Tobacco Use Types [...] Support [facility] [address] [place] [address] Shavon Ng FNP-C [address] [place] [place] [address] documented as of this encounter Visit Diagnoses Not on filedocumented in this encounter Care Teams Physical Science Professor Relationship Specialty Start Date End Date Jessica Santamaria MD [address] [place], [place] PCP - General 04/04/19 documented as of this encounter
--- OUTSIDE RECORDS SUMMARY | 2025-03-23 10:39 | XMS_ITS | Encounter Summary ---
Author Organization [facility] [place], Address [address] [place] [address] Phone Care Team Providers Care Nail Technician Teacher Name Role Phone Jessica Santamaria MD Primary Care Provider [phone] Reason for Visit * Reason Comments Med Refill Encounter Details Date Type Department Care Team (Late st Contact Info) Description 08/24/2022 Refill [facility] [address] [place] [address] Rony Donato PA [address] [place] [address] [place] [address] Social History Tobacco [...] Clinical Support [facility] [address] [place] [address] Shavon Ng FNP-C [address] [place] [address] documented as of this encounter Visit Diagnoses Not on filedocumented in this encounter Care Teams Nail Technician Teacher Relationship Specialty Start Date End Date Jessica Santamaria MD [address] [place], [place] PCP - General 04/04/19 documented as of this encounter
--- OUTSIDE RECORDS SUMMARY | 2025-03-23 10:39 | XMS_ITS | Encounter Summary ---
Author Organization [facility] [place], Address [address] [place] [address] Phone Care Team Providers Care Shirt Ironer Name Role Phone Jessica Santamaria MD Primary Care Provider [phone] Reason for Visit * Reason Comments Med Refill Encounter Details Date Type Department Care Team (Late st Contact Info) Description 04/16/2022 Refill [facility] [address] [place] [address] Rony Donato PA [address] [place] [address] [place] [address] Social History Tobacco Use Types [...] Support [facility] Of [address] [place] [address] Shavon Ng FNP-C [address] [place] [address] [place] [address] documented as of this encounter Visit Diagnoses Not on filedocumented in this encounter Care Teams Shirt Ironer Relationship Specialty Start Date End Date Jessica Santamaria MD [address] [place], [place] PCP - General 04/04/19 documented as of this encounter
--- OUTSIDE RECORDS SUMMARY | 2025-03-23 10:39 | XMS_ITS | Encounter Summary ---
Author Organization [facility] Address [address] [place] [address] Phone Care Team Providers Care Boiler Attendant Name Role Phone Jessica Santamaria MD Primary Care Provider [phone] Encounter Details Date Type Department Care Team (Late Contact Info) Description 10/05/2023 Documentation Only [facility] [place], [address] [place] [address] Hiwot [place]INT [place], [place] [address] [place] [address] Social History Tobacco Use Types [...] Support [facility] [place] [address] [place] [address] Shavon Ng FNP-C [address] [place] [address] documented as of this encounter Visit Diagnoses Not on filedocumented in this encounter Care Teams Boiler Attendant Relationship Specialty Start Date End Date Jessica Santamaria MD [address] [place], [place] PCP - General 04/04/19 documented as of this encounter
--- OUTSIDE RECORDS SUMMARY | 2025-03-23 10:39 | XMS_ITS | Encounter Summary ---
Author Organization [facility] Address [address] [place] [address] Phone Care Team Providers Care Drafter Geological Name Role Phone Jessica Santamaria MD Primary Care Provider [phone] Encounter Details Date Type Department Care Team (Late Contact Info) Description 09/18/2024 Documentation Only [facility] [place], [address] [facility] [address] [facility] [place] [address] [place], [place] [address] [place] [address] Social History Tobacco Use Types [...] Support [facility] [place] [address] [place] [address] Shavon Ng FNP-C [address] [place] [address] documented as of this encounter Visit Diagnoses Not on filedocumented in this encounter Care Teams Drafter Geological Relationship Specialty Start Date End Date Jessica Santamaria MD [address] [place], [place] PCP - General 04/04/19 documented as of this encounter
== END 2025-03-23 08:24 | disposition home or self-care (01) ==
LOC: HO.XRAY 08:23
PROVIDERS: PCP Internal Medicine; Visit Provider Student in an Organized Health Care Education/Training Program
DX: S92.355A Nondisplaced fracture of fifth metatarsal bone, left foot, initial encounter for closed fracture (principal); W01.0XXA Fall on same level from slipping, tripping and stumbling without subsequent striking against object, initial encounter
CPT/HCPCS: 29515; 73630

== ENCOUNTER 2025-03-23 08:23 | Outpatient (AMB) | payer OTHER, SELFPAY ==
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
[2025-03-23 08:36] VITALS: BMI 27.6
== END 2025-03-23 09:06 | disposition home or self-care (01) ==
LOC: HO.HPODS 08:24
PROVIDERS: PCP Internal Medicine; Visit Provider Student in an Organized Health Care Education/Training Program
DX: S92.355A Nondisplaced fracture of fifth metatarsal bone, left foot, initial encounter for closed fracture (principal); M25.572 Pain in left ankle and joints of left foot; M79.672 Pain in left foot
CPT/HCPCS: 29515; 99204

== ENCOUNTER → 2025-03-23 09:44 | Outpatient (BNV) | payer OTHER, SELFPAY | PROVIDERS: PCP Internal Medicine; Visit Provider Radiology Diagnostic Radiology | DX: S92.352A Displaced fracture of fifth metatarsal bone, left foot, initial encounter for closed fracture (principal) | CPT/HCPCS: 73630 ==

== ENCOUNTER 2025-04-09 11:33 | Outpatient (AMB) | payer OTHER, SELFPAY ==
--- OUTSIDE RECORDS SUMMARY | 2025-04-05 14:00 | XMS_ITS | Encounter Summary ---
Author Organization [facility], Address [address] [place] [address] Phone Care Team Providers Care Mechanic And Welder Name Role Phone Jessica Santamaria MD Primary Care Provider [phone] Encounter Details Date Type Department Care Team (Latest Contact Info) Description 04/05/2025 2:00 PM EST Clinical Support [facility] [place] [address] [place] [address] Shavon Ng FNP-C [address] [place] [address] Stage 3a chronic kidney disease (HCC) (Primary Dx); History of renal transplant; History of immunosuppressive therapy Social History Tobacco Use Types Packs/Day Years [...] Sign Reading Time Taken Comments Blood Pressure 121/69 04/05/2025 1:52 PM EST Pulse - - Temperature - - Respiratory Rate - - Oxygen Saturation - - Inhaled Oxygen Concentration - - Weight 65.8 kg (145 lb) 04/05/2025 1:52 PM EST Height - - Body Mass Index 28.32 01/15/2025 9:49 AM EDT documented in this encounter Plan of Treatment Upcoming Encounters Date Type Department Care Team (Late Contact Info) Description 06/14/2025 1:00 PM EST Clinical Support [facility] [place] [address] [place] [address] Shavon Ng, CREDENTIALER-C [address] [place] [address] documented as of this encounter Visit Diagnoses Diagnosis Stage 3a chronic kidney disease (HCC)- Primary History of renal transplant History of immunosuppressive therapy documented in this encounter Care Teams Mechanic And Welder Relationship Specialty Start Date End Date Jessica Santamaria MD [address] [place], [place] PCP - General 04/04/19 documented as of this encounter
[2025-04-09 11:45] VITALS: BMI 27.6
--- NOTE | 2025-04-09 11:45 | MHC.OFFVIS ---
Vital Signs 04/09/25 11:45 Height 5 ft 1 in Weight 146 lb BMI 27.6 Intake Visit Reasons: f/u xrays left 5th met fx Intake Note: nguyễn is a 59 year old female who presents today for a follow up on her left 5th toe fracture. During her last visit she was advised to continue taking ibuprofen as needed for her pain and she was provided with a surgical shoe and crutches. Patient reports she is doing well, she has tried to walk without the boot. She does reports a small pain in the medial aspect of her foot. Imaging in patients chart Dairy Chemist Required: Yes Dairy Chemist Services: Dairy Chemist Present Dairy Chemist Name: [id number] Allergies amlodipine Adverse Reaction (Intermediate, Verified 03/23/25 08:38) leg edema morphine Adverse Reaction (Mild, Verified 03/23/25 08:38) Rash HPI Comments Details: The patient is a 59-year-old female presenting for follow-up of the left 5th met fracture. Patient states her symptoms have continued to improve and she experiences less pain in comparison to last visit. Patient states she has been bearing weight to the left lower extremity. She states there was a moment where she was walking around without the cam boots and without the use of crutches and experienced pain at the end of the day. Patient then continues to ambulate at this time with a Cam boot and states it helps to relieve the pain. She denies any new pedal injuries. She denies any other pedal concerns at this time. [facility] Medical History (Updated 03/26/25 @ 10:05 by Samantha Zepeda DPM) Left foot pain Nondisplaced fracture of fifth left metatarsal bone Injury of left foot Nondisplaced fracture of fifth metatarsal bone, left foot, initial encounter for closed fracture Nondisplaced fracture of base of fifth metacarpal bone Hx of sciatica CVA (cerebral vascular accident) Malnutrition Diabetes mellitus Right ankle pain Left ankle pain Fatigue Hair loss Back pain Pancreatic lesion Pneumonia due to COVID-19 virus Essential hypertension Surgical History History of esophagogastroduodenoscopy (EGD) Hx of colonoscopy Kidney transplant recipient AV fistula Kidney transplant status History of tubal ligation History of foot surgery History of lipoma History of benign breast tumor Family History Father CVD (cardiovascular disease) Prostate cancer Mother No problems noted. Social History Household Members: Children Housing: Apartment Alcohol intake: never Patient Tobacco Use Status: Former Tobacco user Tobacco use type: Cigarette e-Cigarette/Vaping Use: Never Used Second Hand Smoke Exposure: No service: No Current occupational status: unemployed Cognitive needs: No Hearing needs: No Vision needs: Yes Review of Systems Const Details: - Musculoskeletal: Reports intermittent swelling and pain to the left foot. - Endocrine: Reports blood sugar levels between 135 and 175 mg/dL. All systems reviewed & are unremarkable except as noted in HPI and below Physical Exam Vital Signs: BMI result Body Mass Index 27.6 Extrem Other: LLE Focused Physical Exam: Derm: Mild swelling noted to the dorsolateral aspect of the foot. No open lesions, abrasion or wounds noted. No ecchymois or discoloration noted. No maceration noted. Skin supple and turgor WNL. Vasc: DP/PT pulses palpable. CFT < 3 secs. Temp gradient warm to warm. Pedal hair diminished. No varicosities noted. Neuro: Protective sensations slightly diminished. MSK: Mild pain on palpation to the lateral aspect of the foot at the base of the 5th metatarsal. No pain on palpation to the lateral aspect of the left ankle. No crepitus noted. ROM of the forefoot WNL except for the 5th toe which is reduced. ROM of the hindfoot and ankle WNL. Antalgic gait noted with the use of 1 crutch and the cam boot. Office Procedures AMB Podiatry Dressing Details of Procedure: Applied a stockinette, cast padding, an Kolby bandage with the use of a cam boot to the left lower extremity. 49960 - Short leg splint Procedure code (CPT) selection complete Results Reviewed Results Reviewed: Laboratory Tests 03/19/25 09:00 Fasting Glucose 113 H Estimat Average Glucose 123 Hemoglobin A1c % 5.9 Ordered left foot xray weightbearing three-views to be performed prior to next visit. Podiatry read of left foot xray (03/23/25): Noted healing to the nondisplaced Alfred fracture 5th met base. Increase bone consolidation and bone callus formation noted. No other acute fractures or dislocations noted. Left foot xray (03/23/25): FINDINGS: Again seen is a transverse fracture through the proximal metaphysis of the fifth metatarsal extending into the intermetatarsal joint. No other fractures are identified. No changes are noted. An os trigonum is incidentally noted. Also, there is ossification in the distal Achilles tendon near the calcaneal enthesophytes. IMPRESSION: Stable Alfred fracture. Podiatry read of left foot xray (03/06/25): Non-displaced Alfred fracture to the 5th met noted. Joint spacing WNL. Left foot xray (03/06/25): FINDINGS: Six views of the left foot and ankle are submitted. Osseous mineralization is normal. There is a nondisplaced fracture of the base of the 5th metatarsal which is not intra-articular. No additional fracture is seen. There is no dislocation. The joint spaces are preserved. The soft tissues are unremarkable. IMPRESSION: Nondisplaced fracture of the base of the 5th metatarsal. Podiatry read of left ankle xray (03/06/25): No acute fractures or dislocations noted. Joint spacing of the ankle WNL. Os trigonus noted. Mild calcification of the Achilles tendon at the insertion point noted. Left ankle xray (03/06/25): FINDINGS: Six views of the left foot and ankle are submitted. Osseous mineralization is normal. There is a nondisplaced fracture of the base of the 5th metatarsal which is not intra-articular. No additional fracture is seen. There is no dislocation. The joint spaces are preserved. The soft tissues are unremarkable. IMPRESSION: Nondisplaced fracture of the base of the 5th metatarsal. Assessment & Plan Assessment & Plan (1) Nondisplaced fracture of fifth left metatarsal bone: Code(s): S92.355A - Nondisplaced fracture of fifth metatarsal bone, left foot, initial encounter for closed fracture Category: Medical Qualifiers: Encounter type: initial encounter Fracture type: closed Qualified Code(s): S92.355A - Nondisplaced fracture of fifth metatarsal bone, left foot, initial encounter for closed fracture (2) Injury of left foot: Code(s): S99.922A - Unspecified injury of left foot, initial encounter Category: Medical Qualifiers: Encounter type: initial encounter Qualified Code(s): S99.922A - Unspecified injury of left foot, initial encounter (3) Left ankle pain: Code(s): M25.572 - Pain in left ankle and joints of left foot Category: Medical Qualifiers: Chronicity: acute Qualified Code(s): M25.572 - Pain in left ankle and joints of left foot (4) Nondisplaced fracture of fifth metatarsal bone, left foot, initial encounter for closed fracture: Code(s): S92.355A - Nondisplaced fracture of fifth metatarsal bone, left foot, initial encounter for closed fracture Category: Medical (5) Left foot pain: Code(s): M79.672 - Pain in left foot Category: Medical (6) Diabetes mellitus: Code(s): E11.9 - Type 2 diabetes mellitus without complications Category: Medical Qualifiers: Diabetes mellitus type: type 2 Diabetes mellitus terminal makeup operator insulin use: without correction use Diabetes mellitus complication status: with hyperglycemia Qualified Code(s): E11.65 - Type 2 diabetes mellitus with hyperglycemia Plan Patient was informed and verbally consented to the use of an ambient scribe for clinic note documentation during this visit. I discussed with the patient the positive progress of the fracture healing as evidenced by the x-rays. We talked about the plan to continue using the boot and to transition to weight-bearing as tolerated to the left lower extremity without the use of an assistive device at this time. I advised scheduling a follow-up x-ray in three weeks and discussed the potential for physical therapy if pain persists after transitioning to regular shoes. - applied a stockinette, cast padding, Kolby bandage to the left lower extremity with the use of the cam boot. - patient is to keep the dressing clean dry and intact a may remove the cam boot when resting. - ordered left foot x-rays three views weight-bearing to be performed prior to next visit. - continue taking Tylenol or ibuprofen PRN for pain. - avoid barefoot walking. - Will consider transition to sneakers if continued positive healing is noted at next appointment. - If pain persists, physical therapy may be considered after transitioning to regular shoes. - Monitor blood sugar levels regularly and continue diabetes management with current medication as per PCP. RTC in 3 weeks. Orders: Orders AMB Podiatry Dressing Today E11.65 - Type 2 diabetes mellitus with hyperglycemia, M25.572 - Pain in left ankle and joints of left foot, M79.672 - Pain in left foot, S92.355A - Nondisplaced fracture of fifth metatarsal bone, left foot, initial encounter for closed fracture, S99.922A - Unspecified injury of left foot, initial encounter Coding Level of Care Code Est Pt Level 4 (21391) Diagnoses Closed nondisplaced fracture of fifth metatarsal bone of left foot, initial encounter S92.355A Encounter type: initial encounter Fracture type: closed Injury of left foot, initial encounter S99.922A Encounter type: initial encounter Acute left ankle pain M25.572 Chronicity: acute Nondisplaced fracture of fifth metatarsal bone, left foot, initial encounter for closed fracture S92.355A Left foot pain M79.672 Type 2 diabetes mellitus with hyperglycemia, without long-term current use of insulin E11.65 Diabetes mellitus type: type 2 Diabetes mellitus terminal makeup operator insulin use: without terminal makeup operator use Diabetes mellitus complication status: with hyperglycemia CPT Codes Podiatry Dressing - CPT: 15144 - Short leg splint ([id number]) Time Spent (min) 36
--- OUTSIDE RECORDS SUMMARY | 2025-04-09 13:57 | XMS_ITS | Encounter Summary ---
Author Organization [facility] Address [address] [place] [address] Phone Care Team Providers Care Food Beverage Supervisor Name Role Phone Jessica Santamaria MD Primary Care Provider [phone] Encounter Details Date Type Department Care Team (Late st Contact Info) Description 09/15/2024 Telephone [facility] [address] [place] [address] Karyn Ross Social History Tobacco [...] tender and painful. Please return the call [phone] - thank you documented in this encounter Plan of Treatment Upcoming Encounters Date Type Department Care Team (Late st Contact Info) Description 06/14/2025 1:00 PM EST Clinical Support [facility] [address] [address] Shavon Ng, LOOM FIXER-C [address] [place] [address] documented as of this encounter Visit Diagnoses Not on filedocumented in this encounter Care Teams Food Beverage Supervisor Relationship Specialty Start Date End Date Jessica Santamaria MD [address] [place] [address] PCP - General 04/04/19 documented as of this encounter
--- OUTSIDE RECORDS SUMMARY | 2025-04-09 13:57 | XMS_ITS | Encounter Summary ---
Author Organization [facility] Address [address] [place] [address] Phone Care Team Providers Care Director Emergency Name Role Phone Jessica Santamaria MD Primary Care Provider [phone] Encounter Details Date Type Department Care Team (Late Contact Info) Description 06/30/2024 Documentation Only [facility] [place], [address] [place] [address] [place], [place] [address] [place] [address] Social History Tobacco Use Types [...] Support [facility] [place] [address] [place] [address] Shavon Ng FNP-C [address] [place] [address] documented as of this encounter Visit Diagnoses Not on filedocumented in this encounter Care Teams Director Emergency Relationship Specialty Start Date End Date Jessica Santamaria MD [address] [place], [place] PCP - General 04/04/19 documented as of this encounter
--- OUTSIDE RECORDS SUMMARY | 2025-04-09 13:57 | XMS_ITS | Encounter Summary ---
Author Organization [facility] Address [address] [place] [address] Phone Care Team Providers Care Diesel Technician Mechanic Name Role Phone Jessica Santamaria MD Primary Care Provider [phone] Encounter Details Date Type Department Care Team (Late Contact Info) Description 09/27/2024 Documentation Only [facility] [place], [address] [place] [address] [place], [place] [address] [place] [address] Social History Tobacco Use Types [...] Support [facility] [place] [address] [place] [address] Shavon Ng FNP-C [address] [place] [address] documented as of this encounter Visit Diagnoses Not on filedocumented in this encounter Care Teams Diesel Technician Mechanic Relationship Specialty Start Date End Date Jessica Santamaria MD [address] [place], [place] PCP - General 04/04/19 documented as of this encounter
--- OUTSIDE RECORDS SUMMARY | 2025-04-09 13:57 | XMS_ITS | Encounter Summary ---
Author Organization [facility] Address [address] [place] [address] Phone Care Team Providers Care Interventional Physician Name Role Phone Jessica Santamaria MD Primary Care Provider [phone] Encounter Details Date Type Department Care Team (Late Contact Info) Description 03/19/2025 Documentation Only [facility] [place], [address] [place] [address] [place], [place] [address] [place] [address] Social History Tobacco Use Types [...] Support [facility] [place] [address] [place] [address] Shavon Ng FNP-C [address] [place] [place] [address] documented as of this encounter Visit Diagnoses Not on filedocumented in this encounter Care Teams Interventional Physician Relationship Specialty Start Date End Date Jessica Santamaria MD [address] [place], [place] PCP - General 04/04/19 documented as of this encounter
--- OUTSIDE RECORDS SUMMARY | 2025-04-09 13:57 | XMS_ITS | Encounter Summary ---
Author Organization [facility] [place], Address [address] [place] [address] Phone Care Team Providers Care Operations Trainer Name Role Phone Jessica Santamaria MD Primary Care Provider [phone] Reason for Visit * Reason Comments Med Refill Encounter Details Date Type Department Care Team (Late st Contact Info) Description 06/20/2021 Refill [facility] [address] [place] [address] Rony Donato PA [address] [place] [address] [place] [address] Social History Tobacco Use Types [...] & Transplant Services [facility] [address] [place] [address] Shavon Ng FNP-C [address] [place] [address] documented as of this encounter Visit Diagnoses Not on filedocumented in this encounter Care Teams Operations Trainer Relationship Specialty Start Date End Date Jessica Santamaria MD [address] [place], [place] PCP - General 04/04/19 documented as of this encounter
--- OUTSIDE RECORDS SUMMARY | 2025-04-09 13:57 | XMS_ITS | Encounter Summary ---
Author Organization [facility] [place], Address [address] [place] [address] Phone Care Team Providers Care Senior Datastage Developer Name Role Phone Jessica Santamaria MD Primary Care Provider [phone] Reason for Visit * Reason Comments Med Refill Encounter Details Date Type Department Care Team (Late st Contact Info) Description 06/11/2021 Refill [facility] [address] [place] [address] Rony Donato PA [address] [place] [address] [place] [address] Social History Tobacco Use Types [...] Services [facility] [address] [place] [address] Shavon Ng FNP-C [address] [place] [address] documented as of this encounter Visit Diagnoses Not on filedocumented in this encounter Care Teams Senior Datastage Developer Relationship Specialty Start Date End Date Jessica Santamaria MD [address] [place], [place] PCP - General 04/04/19 documented as of this encounter
--- OUTSIDE RECORDS SUMMARY | 2025-04-09 13:57 | XMS_ITS | Encounter Summary ---
Author Organization [facility] Address [address] [place] [address] Phone Care Team Providers Care Mend Worker Name Role Phone Jessica Santamaria MD Primary Care Provider [phone] Encounter Details Date Type Department Care Team (Late Contact Info) Description 06/30/2024 Documentation Only [facility] [place], [address] [place] [address] [place], [place] [address] [place] [address] Social History Tobacco Use Types [...] Support [facility] [place] [address] [address] Shavon Ng FNP-C [address] [place] [address] documented as of this encounter Visit Diagnoses Not on filedocumented in this encounter Care Teams Mend Worker Relationship Specialty Start Date End Date Jessica Santamaria MD [address] [place], [place] PCP - General 04/04/19 documented as of this encounter
--- OUTSIDE RECORDS SUMMARY | 2025-04-09 13:57 | XMS_ITS | Encounter Summary ---
Author Organization [facility] Address [address] [place] [address] Phone Care Team Providers Care Fan Mail Clerk Name Role Phone Jessica Santamaria MD Primary Care Provider [phone] Encounter Details Date Type Department Care Team (Late Contact Info) Description 01/23/2025 Documentation Only [facility] [place], [address] [place] [address] [place], [place] [address] [place] [address] Social History Tobacco Use Types [...] Support [facility] [place] [address] [place] [address] Shavon Ng FNP-C [address] [place] [address] documented as of this encounter Visit Diagnoses Not on filedocumented in this encounter Care Teams Fan Mail Clerk Relationship Specialty Start Date End Date Jessica Santamaria MD [address] [place], [place] PCP - General 04/04/19 documented as of this encounter
--- OUTSIDE RECORDS SUMMARY | 2025-04-09 13:57 | XMS_ITS | Encounter Summary ---
Author Organization [facility] Address [address] [place] [address] Phone Care Team Providers Care Digital Marketing Associate Name Role Phone Jessica Santamaria MD Primary Care Provider [phone] Encounter Details Date Type Department Care Team (Late Contact Info) Description 09/18/2024 Documentation Only [facility] [place], [address] [place] [address] [place], [place] [address] [place] [address] Social History Tobacco Use Types [...] Support [facility] [place] [address] [place] [address] Shavon Ng FNP-C [address] [place] [address] documented as of this encounter Visit Diagnoses Not on filedocumented in this encounter Care Teams Digital Marketing Associate Relationship Specialty Start Date End Date Jessica Santamaria MD [address] [place], [place] PCP - General 04/04/19 documented as of this encounter
--- OUTSIDE RECORDS SUMMARY | 2025-04-09 13:57 | XMS_ITS | Encounter Summary ---
Author Organization [facility] [place], Address [address] [place] [address] Phone Care Team Providers Care Cold Saw Operator Name Role Phone Jessica Santamaria MD Primary Care Provider [phone] Reason for Visit * Reason Comments Med Refill Encounter Details Date Type Department Care Team (Late st Contact Info) Description 06/23/2021 Refill [facility] [address] [place] [address] Rony Donato PA [address] [place] [address] [place] [address] Social History Tobacco Use Types [...] Clinical Support [facility] [address] [place] [address] Shavon Ng FNP-C [address] [place] [place] [address] documented as of this encounter Visit Diagnoses Not on filedocumented in this encounter Care Teams Cold Saw Operator Relationship Specialty Start Date End Date Jessica Santamaria MD [address] [place], [place] PCP - General 04/04/19 documented as of this encounter
--- OUTSIDE RECORDS SUMMARY | 2025-04-09 13:58 | XMS_ITS | Encounter Summary ---
Author Organization [facility] Address [address] [place] [address] Phone Care Team Providers Care Journeyman Painter Name Role Phone Jessica Santamaria MD Primary Care Provider [phone] Encounter Details Date Type Department Care Team (Late Contact Info) Description 03/12/2025 Documentation Only [facility] [place], [address] [place] [address] [place], [place] [address] [place] [address] Social History Tobacco Use Types [...] Support [facility] [place] [address] [place] [address] Shavon Ng FNP-C [address] [place] [address] documented as of this encounter Visit Diagnoses Not on filedocumented in this encounter Care Teams Journeyman Painter Relationship Specialty Start Date End Date Jessica Santamaria MD [address] [place], [place] PCP - General 04/04/19 documented as of this encounter
--- OUTSIDE RECORDS SUMMARY | 2025-04-09 13:58 | XMS_ITS | Encounter Summary ---
Author Organization [facility] Address [address] [place] [address] Phone Care Team Providers Care Kid Club Attendant Name Role Phone Jessica Santamaria MD Primary Care Provider [phone] Encounter Details Date Type Department Care Team (Late Contact Info) Description 08/20/2023 Documentation Only [facility] [place], [address] [place] [address] [place], [place] [address] [place] [address] Social History Tobacco Use Types [...] Support [facility] [place] [address] [place] [address] Shavon Ng FNP-C [address] [place] [address] documented as of this encounter Visit Diagnoses Not on filedocumented in this encounter Care Teams Kid Club Attendant Relationship Specialty Start Date End Date Jessica Santamaria MD [address] [place], [place] PCP - General 04/04/19 documented as of this encounter
--- OUTSIDE RECORDS SUMMARY | 2025-04-09 13:58 | XMS_ITS | Encounter Summary ---
Author Organization [facility] Address [address] [place] [address] Phone Care Team Providers Care Computer Numerical Control Operator Name Role Phone Jessica Santamaria MD Primary Care Provider Encounter Details Date Type Department Care Team (Late Contact Info) Description 04/28/2024 Documentation Only [facility] [place], [address] [place] [address] [place], [place] [address] [place] [address] Social History Tobacco Use Types [...] Care & Transplant [facility] [place] [address] [place] [address] Shavon Ng FNP-C [address] [place] [address] documented as of this encounter Visit Diagnoses Not on filedocumented in this encounter Care Teams Computer Numerical Control Operator Relationship Specialty Start Date End Date Jessica Santamaria MD [address] [place], [place] PCP - General 04/04/19 documented as of this encounter
--- OUTSIDE RECORDS SUMMARY | 2025-04-09 13:58 | XMS_ITS | Encounter Summary ---
Author Organization [facility] Address [address] [place] [address] Phone Care Team Providers Care Cytogenetics Technologist Name Role Phone Jessica Santamaria MD Primary Care Provider [phone] Encounter Details Date Type Department Care Team (Late Contact Info) Description 10/05/2023 Documentation Only [facility] [place], [address] [place] [address] [place], [place] [address] [place] [address] Social History Tobacco Use Types [...] [facility] [place] [address] [place] [address] Shavon Ng FNP-C [address] [place] [address] documented as of this encounter Visit Diagnoses Not on filedocumented in this encounter Care Teams Cytogenetics Technologist Relationship Specialty Start Date End Date Jessica Santamaria MD [address] [place], [place] PCP - General 04/04/19 documented as of this encounter
--- OUTSIDE RECORDS SUMMARY | 2025-04-09 13:58 | XMS_ITS | Encounter Summary ---
Author Organization [facility] [place], Address [address] [address] Phone Care Team Providers Care Automobile Dealer Name Role Phone Jessica Santamaria MD Primary Care Provider [phone] Reason for Visit * Reason Comments Med Refill Encounter Details Date Type Department Care Team (Late st Contact Info) Description 07/13/2022 Refill [facility] [address] [place] [address] Alvaro Stratton MD [address] [place] [address] [place] [address] Social History Tobacco Use Types [...] Clinical Support [facility] [address] [place] [address] Shavon Ng FNP-C [address] [place] [place] [address] documented as of this encounter Visit Diagnoses Not on filedocumented in this encounter Care Teams Automobile Dealer Relationship Specialty Start Date End Date Jessica Santamaria MD [address] [place], [place] PCP - General 04/04/19 documented as of this encounter
--- OUTSIDE RECORDS SUMMARY | 2025-04-09 13:58 | XMS_ITS | Encounter Summary ---
Author Organization [facility] [place], Address [address] [place] [address] Phone Care Team Providers Care Sewer Separation Designer Name Role Phone Jessica Santamaria MD Primary Care Provider [phone] Reason for Visit * Reason Comments Med Refill Encounter Details Date Type Department Care Team (Late st Contact Info) Description 08/24/2022 Refill [facility] [address] [place] [address] Rony Donato PA [address] [place] [address] [place] [address] Social History Tobacco Use Types [...] & Transplant Services [facility] [address] [place] [address] Shavon Ng FNP-C [address] [place] [address] documented as of this encounter Visit Diagnoses Not on filedocumented in this encounter Care Teams Sewer Separation Designer Relationship Specialty Start Date End Date Jessica Santamaria MD [address] [place], [place] PCP - General 04/04/19 documented as of this encounter
--- OUTSIDE RECORDS SUMMARY | 2025-04-09 13:58 | XMS_ITS | Encounter Summary ---
Author Organization [facility] Address [address] [place] [address] Phone Care Team Providers Care Nurse Auditor Name Role Phone Jessica Santamaria MD Primary Care Provider [phone] Encounter Details Date Type Department Care Team (Late Contact Info) Description 09/20/2023 Documentation Only [facility] [place], [address] [place] [address] [place], [place] [address] [place] [address] Social History Tobacco Use [...] [facility] [place] [address] [place] [address] Shavon Ng FNP-C [address] [place] [address] documented as of this encounter Visit Diagnoses Not on filedocumented in this encounter Care Teams Nurse Auditor Relationship Specialty Start Date End Date Jessica Santamaria MD [address] [place], [place] PCP - General 04/04/19 documented as of this encounter
--- OUTSIDE RECORDS SUMMARY | 2025-04-09 13:58 | XMS_ITS | Encounter Summary ---
Author Organization [facility] Address [address] [place] [address] Phone Care Team Providers Care Account Services Associate Name Role Phone Jessica Santamaria MD Primary Care Provider [phone] Encounter Details Date Type Department Care Team (Late Contact Info) Description 09/28/2023 Documentation Only [facility] [place], [address] [place] [address] [place], [place] [address] [place] [address] Social History Tobacco Use Types [...] Support [facility] [place] [address] [place] [address] Shavon Ng FNP-C [address] [place] [address] documented as of this encounter Visit Diagnoses Not on filedocumented in this encounter Care Teams Account Services Associate Relationship Specialty Start Date End Date Jessica Santamaria MD [address] [place], [place] PCP - General 04/04/19 documented as of this encounter
--- OUTSIDE RECORDS SUMMARY | 2025-04-09 13:58 | XMS_ITS | Encounter Summary ---
Author Organization [facility] [place], Address [address] [place] [address] Phone Care Team Providers Care Sports Betting Manager Name Role Phone Jessica Santamaria MD Primary Care Provider Reason for Visit * Reason Comments Med Refill Encounter Details Date Type Department Care Team (Late st Contact Info) Description 06/23/2022 Refill [facility] [address] [place] [address] Rony Donato PA [address] [place] [address] [place] [address] Social History Tobacco Use Types [...] Clinical Support [facility] [address] [address] Shavon Ng FNP-C [address] [address] documented as of this encounter Visit Diagnoses Not on filedocumented in this encounter Care Teams Sports Betting Manager Relationship Specialty Start Date End Date Jessica Santamaria MD [address] [place], [place] PCP - General 04/04/19 documented as of this encounter
--- OUTSIDE RECORDS SUMMARY | 2025-04-09 13:58 | XMS_ITS | Encounter Summary ---
Author Organization [facility] [place], Address [address] [place] [address] Phone Care Team Providers Care Can Filling And Closing Machine Tender Name Role Phone Jessica Santamaria MD Primary Care Provider [phone] Reason for Visit * Reason Comments Med Refill Encounter Details Date Type Department Care Team (Late st Contact Info) Description 07/20/2023 Refill [facility] [address] [place] [address] Rony Donato PA [address] [place] [address] [place] [address] Social History Tobacco Use Types [...] Support [facility] [address] [place] [address] Shavon Ng FNP-C [address] [place] [address] documented as of this encounter Visit Diagnoses Not on filedocumented in this encounter Care Teams Can Filling And Closing Machine Tender Relationship Specialty Start Date End Date Jessica Santamaria MD [address] [place], [place] PCP - General 04/04/19 documented as of this encounter
--- OUTSIDE RECORDS SUMMARY | 2025-04-09 13:58 | XMS_ITS | Encounter Summary ---
Author Organization [facility] Address [address] [address] Phone Care Team Providers Care Soda Tester Name Role Phone Jessica Santamaria MD Primary Care Provider [phone] Reason for Visit * Reason Comments Med Refill Encounter Details Date Type Department Care Team (Late st Contact Info) Description 04/12/2023 Refill [facility], [address] [address] Alvaro Stratton MD [address] [place] [address] Social History Tobacco Use Types [...] Support [facility] [place] [address] [address] Shavon Ng FNP-C [address] [address] documented as of this encounter Visit Diagnoses Not on filedocumented in this encounter Care Teams Soda Tester Relationship Specialty Start Date End Date Jessica Santamaria MD [address] [place], [place] PCP - General 04/04/19 documented as of this encounter
--- OUTSIDE RECORDS SUMMARY | 2025-04-09 13:58 | XMS_ITS | Encounter Summary ---
Author Organization [facility] Address [address] [place] [address] Phone Care Team Providers Care Lead Material Handler Name Role Phone Jessica Santamaria MD Primary Care Provider [phone] Encounter Details Date Type Department Care Team (Late Contact Info) Description 02/16/2024 Documentation Only [facility] [place], [address] [place] [address] [place], [place] [address] [place] [address] Social History Tobacco Use Types [...] Services Of [place] [address] [place] [address] Shavon Ng FNP-C [address] [place] [address] documented as of this encounter Visit Diagnoses Not on filedocumented in this encounter Care Teams Lead Material Handler Relationship Specialty Start Date End Date Jessica Santamaria MD [address] [place], [place] PCP - General 04/04/19 documented as of this encounter
--- OUTSIDE RECORDS SUMMARY | 2025-04-09 13:58 | XMS_ITS | Encounter Summary ---
Author Organization [facility] Address [address] [place] [address] Phone Care Team Providers Care Network Intern Name Role Phone Jessica Santamaria MD Primary Care Provider [phone] Encounter Details Date Type Department Care Team (Late Contact Info) Description 09/20/2023 Documentation Only [facility] [place], [address] [place] [address] [place], [place] [address] [place] [address] Social History Tobacco Use Types [...] Support [facility] [place] [address] [place] [address] Shavon Ng FNP-C [address] [place] [address] documented as of this encounter Visit Diagnoses Not on filedocumented in this encounter Care Teams Network Intern Relationship Specialty Start Date End Date Jessica Santamaria MD [address] [place], [place] PCP - General 04/04/19 documented as of this encounter
--- OUTSIDE RECORDS SUMMARY | 2025-04-09 13:58 | XMS_ITS | Encounter Summary ---
Author Organization [facility] [place], Address [address] [place] [address] Phone Care Team Providers Care Editing Internship Name Role Phone Jessica Santamaria MD Primary Care Provider [phone] Reason for Visit * Reason Comments Med Refill Encounter Details Date Type Department Care Team (Late st Contact Info) Description 04/16/2022 Refill [facility] [address] [place] [address] Rony Donato PA [address] [place] [address] [place] [address] Social History Tobacco Use Types [...] Support [facility] Of [address] [place] [address] Shavon Ng FNP-C [address] [place] [address] [place] [address] documented as of this encounter Visit Diagnoses Not on filedocumented in this encounter Care Teams Editing Internship Relationship Specialty Start Date End Date Jessica Santamaria MD [address] [place], [place] PCP - General 04/04/19 documented as of this encounter
--- OUTSIDE RECORDS SUMMARY | 2025-04-09 13:58 | XMS_ITS | Encounter Summary ---
Author Organization [facility] Address [address] [place] [address] Phone Care Team Providers Care Remote Sensing Program Manager Name Role Phone Jessica Santamaria MD Primary Care Provider [phone] Encounter Details Date Type Department Care Team (Late Contact Info) Description 09/18/2024 Documentation Only [facility] [place], [address] [place] [address] [place], [place] [address] [place] [address] Social History Tobacco Use Types [...] Support [facility] [place] [address] [place] [address] Shavon Ng FNP-C [address] [place] [address] documented as of this encounter Visit Diagnoses Not on filedocumented in this encounter Care Teams Remote Sensing Program Manager Relationship Specialty Start Date End Date Jessica Santamaria MD [address] [place], [place] PCP - General 04/04/19 documented as of this encounter
--- OUTSIDE RECORDS SUMMARY | 2025-04-09 13:58 | XMS_ITS | Encounter Summary ---
Author Organization [facility] Address [address] [place] [address] Phone Care Team Providers Care Hardboard Coating Machine Operator Name Role Phone Jessica Santamaria MD Primary Care Provider [phone] Encounter Details Date Type Department Care Team (Late Contact Info) Description 11/18/2023 Documentation Only [facility] [place], [address] [place] [address] [place], [place] [address] [place] [address] Social History Tobacco Use Types [...] Support [facility] [place] [address] [place] [address] Shavon Ng FNP-C [address] [place] [address] documented as of this encounter Visit Diagnoses Not on filedocumented in this encounter Care Teams Hardboard Coating Machine Operator Relationship Specialty Start Date End Date Jessica Santamaria MD [address] [place], [place] PCP - General 04/04/19 documented as of this encounter
--- OUTSIDE RECORDS SUMMARY | 2025-04-09 13:58 | XMS_ITS | Clinical Summary ---
Author Organization [facility] [place], Address [address] [place] [address] [place] [address] Phone Care Team Providers Care It Operations Specialist Name Role Phone Jessica Santamaria MD Primary Care Provider [phone] Allergies Active Allergy Reactions Criticality Noted Date [...] (one) time each day 5 Active Pancrelipase, Ngf-Jhgd-Caau, (CREON PO) Take by mouth in the [...] Encounters Date Type Department Care Team Description 04/05/2025 2:00 PM EST Clinical Support [facility] [place] [address] [place] [address] Shavon Ng FNP-C Stage 3a chronic kidney disease (HCC) (Primary Dx); History of renal transplant; History of immunosuppressive therapy 03/27/2025 Orders Only [facility] [address] [place] [address] Hiwot Smith [place] Stage 3b chronic kidney disease (HCC) (Primary Dx); History of renal transplant; Essential hypertension; History of immunosuppressive therapy; Kidney replaced by transplant; Hyperlipidemia, not otherwise specified; Type 2 diabetes mellitus without complication, not otherwise specified (HCC); Vitamin D deficiency, not otherwise specified; Hypomagnesemia; Other iron deficiency anemia; Other specified hypoparathyroidism (HCC); Albuminuria, not otherwise specified; Poor glycemic control 03/19/2025 Documentation Only [facility] [address] [place] [address] Hiwot Smith [place] 03/12/2025 Documentation Only [facility] [address] [place] [address] Hiwot Smith [place] 02/14/2025 Orders Only [facility] Of [address] [place] [address] Zoe Vásquez, RN History of renal transplant (Primary Dx); History of immunosuppressive therapy; Stage 3b chronic kidney disease (HCC) 02/14/2025 Telephone [facility] [address] [place] [address] Zoe Vásquez, ANABELL 02/09/2025 Telephone [facility] Of [address] [place] [address] Zoe Vásquez RN 02/08/2025 4:15 PM EDT Clinical Support [facility] [address] [place] [address] Shavon Ng FNP-C Essential hypertension (Primary Dx); History of renal transplant; History of immunosuppressive therapy; Stage 3a chronic kidney disease (HCC) 02/01/2025 Orders Only [facility] Of [address] [place] [address] Hiwot Smith [place] Kidney replaced by transplant [...] Visit [facility] [address] [place] [address] [place] [address] Damian Norris MD 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) 01/23/2025 Documentation Only [facility] Of [address] [place] [address] Hiwot Smith [place] 01/16/2025 Telephone [facility] Of [address] [place] [address] Antonia Jackson 01/15/2025 10:00 AM EDT Procedure visit [facility] Access [address] [place] [address] Tereso Arrieta MD End stage renal disease (HCC) (Primary Dx); Other mechanical complication of surgically created arteriovenous fistula, initial encounter (HCC) 01/15/2025 Telephone [facility] [address] [place] [address] Katharina Butt 01/12/2025 Telephone [facility] [address] [place] [address] Antonia Jackson from Last 3 Months Immunizations [...] Pressure 121/69 04/05/2025 1:52 PM EST Pulse 68 02/08/2025 4:36 PM EDT Temperature 36.3 C (97.3 F) 01/15/2025 9:49 AM EDT Respiratory Rate 16 01/15/2025 9:49 AM EDT Oxygen Saturation 94% 01/15/2025 9:49 AM EDT Inhaled Oxygen Concentration - - Weight 65.8 kg (145 lb) 04/05/2025 1:52 PM EST Height 152.4 cm (5') 01/15/2025 9:49 AM EDT Body Mass Index 28.32 01/15/2025 9:49 AM EDT Plan of Treatment Upcoming Encounters Date Type Department Care Team (Late st Contact Info) Description 06/14/2025 1:00 PM EST Clinical Support [facility] [place] [address] [place] [address] Shavon Ng, CARDING DOUBLER-C [address] [place] [address] Health Maintenance Due Date Last Done Comments [...] EDT) Hemoglobin A1C 6.4(H) (4.0-5.6) % [facility] Comment: MONITORING: In known diabetic patients, hemoglobin A1c targets should be discussed with health care provider. DIAGNOSTIC USE: The [place] [employer] (ADA) and the World Health [...] Supplement 1 Testing performed or reported by [facility], a Service of [facility], [address] [place] [address] Tate Pham MD, Computer Tester [facility]# [id number] Blood specimen (specimen) Venous blood / Unknown 11/13/2022 9:47 AM EDT 11/13/2022 9:48 AM EDT us Rony [facility] BLOOD ORDERABLES Final Re sult [facility] from Last 3 Months or Most Recently Relevant to Health Maintenance [place] [address] Medicaid Care Teams It Operations Specialist Relationship Specialty Start Date End Date Jessica Santamaria MD [address] [place], [place] PCP - General 04/04/19
== END 2025-04-09 12:12 | disposition home or self-care (01) ==
LOC: HO.HPODS 11:34
PROVIDERS: PCP Internal Medicine; Visit Provider Student in an Organized Health Care Education/Training Program
DX: S92.355A Nondisplaced fracture of fifth metatarsal bone, left foot, initial encounter for closed fracture (principal); S99.922A Unspecified injury of left foot, initial encounter; M25.572 Pain in left ankle and joints of left foot; M79.672 Pain in left foot; E11.65 Type 2 diabetes mellitus with hyperglycemia
CPT/HCPCS: 29515; 99214

== ENCOUNTER → 2025-04-09 11:33 | Outpatient (BNVA) | payer OTHER, SELFPAY | PROVIDERS: PCP Internal Medicine; Visit Provider Student in an Organized Health Care Education/Training Program | DX: Z47.89 Encounter for other orthopedic aftercare (principal); S92.355A Nondisplaced fracture of fifth metatarsal bone, left foot, initial encounter for closed fracture; E11.65 Type 2 diabetes mellitus with hyperglycemia; X58.XXXA Exposure to other specified factors, initial encounter; Y93.9 Activity, unspecified; Y92.9 Unspecified place or not applicable; Y99.9 Unspecified external cause status | CPT/HCPCS: 29515; 99212 ==

== ENCOUNTER 2025-04-10 11:13 | Outpatient (REF) | payer OTHER, SELFPAY ==
--- OUTSIDE RECORDS SUMMARY | 2025-04-05 14:00 | XMS_ITS | Encounter Summary ---
Author Organization [facility], Address [address] [place] [address] Phone Care Team Providers Care Sales And Management Trainee Name Role Phone Jessica Santamaria MD Primary Care Provider [phone] Encounter Details Date Type Department Care Team (Latest Contact Info) Description 04/05/2025 2:00 PM EST Clinical Support [facility] [place] [address] [place] [address] Shavon Ng FNP-C [address] [place] [address] Stage 3a chronic kidney disease (HCC) (Primary Dx); History of renal transplant; History of immunosuppressive therapy Social History Tobacco Use Types Packs/Day Years Used Date Smoking Tobacco: Former Cigarettes 0 Q uit: 03/15/2015 Smokeless Tobacco: Never Comments:Smoking [...] 9:49 AM EDT documented in this encounter Functional Status * BP Answer Date of Assessment Author 121/69 04/05/2025 1:52 PM EST Erikbeau QASIM SandsP-C * Weight Answer Date of Assessment Author 2320 04/05/2025 1:52 PM EST ErikbeauShavon FNP-C * BP Answer Date of Assessment Author 121/69 04/05/2025 1:52 PM EST Shavon Ng FNP-C * Weight Answer Date of Assessment Author 2320 04/05/2025 1:52 PM EST ErikbeauShavon FNP-C documented as of this encounter Plan of Treatment Upcoming Encounters Date Type Department Care Team (Late st Contact Info) Description 06/14/2025 1:00 PM EST Clinical Support [facility] [place] [address] [place] [address] Shavon Ng FNP-C [address] [place] [address] documented as of this encounter Visit Diagnoses Diagnosis Stage 3a chronic kidney disease (HCC)- Primary History of renal transplant History of immunosuppressive therapy documented in this encounter Care Teams Sales And Management Trainee Relationship Specialty Start Date End Date Jessica Santamaria MD [address] [place], [place] PCP - General 04/04/19 documented as of this encounter
--- NOTE | ~2025-04-10 | XR_ITS ---
EXAMINATION: XR FOOT, LEFT CLINICAL INFORMATION: S99.922A - Unspecified injury of left foot, initial encounter COMPARISON: March 23, 2025 TECHNIQUE: AP, lateral, and oblique views of the left foot. Weight-bearing images. FINDINGS: Callus formation within the fracture distal fourth metatarsal. No callus formation at the base of the fifth metatarsal. Loss of plantar arch. No subcutaneous emphysema. No metallic or radiopaque foreign body. No lytic or blastic lesions. XR/XR foot LT min 3V IMPRESSION: Healing fracture, fourth metatarsal. No healing fracture, base of the fifth metatarsal. Pes planus. Electronically signed by: Gurwinder Mcgovern MD 04/10/2025 11:47 AM [place]
--- OUTSIDE RECORDS SUMMARY | 2025-04-10 13:24 | XMS_ITS | Encounter Summary ---
Author Organization [facility] [place], Address [address] [place] [address] Phone Care Team Providers Care Mounter Name Role Phone Jessica Santamaria MD Primary Care Provider [phone] Reason for Visit * Reason Comments Med Refill Encounter Details Date Type Department Care Team (Late st Contact Info) Description 06/20/2021 Refill [facility] [address] [place] [address] Rony Donato PA [address] [place] [address] [place] [address] Social History Tobacco Use Types [...] Clinical Support [facility] [address] [place] [address] Shavon Ng FNP-C [address] [place] [address] documented as of this encounter Visit Diagnoses Not on filedocumented in this encounter Care Teams Mounter Relationship Specialty Start Date End Date Jessica Santamaria MD [address] [place], [place] PCP - General 04/04/19 documented as of this encounter
--- OUTSIDE RECORDS SUMMARY | 2025-04-10 13:24 | XMS_ITS | Encounter Summary ---
Author Organization [facility] [place], Address [address] [place] [address] Phone Care Team Providers Care Christmas Tree Grader Name Role Phone Jessica Santamaria MD Primary Care Provider [phone] Reason for Visit * Reason Comments Med Refill Encounter Details Date Type Department Care Team (Late st Contact Info) Description 04/16/2022 Refill [facility] Of [address] [place] [address] Rony Donato PA [address] [place] [address] [place] [address] Social History Tobacco Use Types Packs/Day Years [...] Support [facility] Of [address] [place] [address] Shavon Ng FNP-C [address] [place] [address] [place] [address] documented as of this encounter Visit Diagnoses Not on filedocumented in this encounter Care Teams Christmas Tree Grader Relationship Specialty Start Date End Date Jessica Santamaria MD [address] [place], [place] PCP - General 04/04/19 documented as of this encounter
--- OUTSIDE RECORDS SUMMARY | 2025-04-10 13:24 | XMS_ITS | Encounter Summary ---
Author Organization [facility] Address [address] [place] [address] Phone Care Team Providers Care Dehydrator Name Role Phone Jessica Santamaria MD Primary Care Provider [phone] Encounter Details Date Type Department Care Team (Late st Contact Info) Description 09/20/2023 Documentation Only [facility] [place], [address] [place] [address] [place], [place] [address] [place] [address] Social History Tobacco Use Types [...] on file documented as of this encounter Functional Status * Question Answer Date of Assessment Author BP 110/60 09/21/2023 1:44 PM EDT Rony Spears PA Height 61 09/21/2023 1:44 PM EDT Rony Spears PA Weight 2739.2 09/21/2023 1:44 PM EDT Rony Spears PA * BMI (Calculated) Answer Date of Assessment Author 32.4 09/21/2023 1:44 PM SHAUNT Rony Donato PA * BP Location Answer Date of Assessment Author Right upper arm 09/21/2023 1:44 PM EDT Rony Donato PA * Question Answer Date of Assessment Author BP 110/60 09/21/2023 1:44 PM EDT Rony Spears PA Height 61 09/21/2023 1:44 PM EDT Rony Spears PA Weight 2739.2 09/21/2023 1:44 PM EDT Rony Spears PA * BMI (Calculated) Answer Date of Assessment Author 32.4 09/21/2023 1:44 PM EDT Rony Donato PA * BP Location Answer Date of Assessment Author Right upper arm 09/21/2023 1:44 PM Rony Pugh PA documented as of this encounter Plan of Treatment Upcoming Encounters Date Type Department Care Team (Late st Contact Info) Description 06/14/2025 1:00 PM EST Clinical Support [facility] [place] [address] [place] [address] Shavon Ng FNP-C [address] [place] [address] documented as of this encounter Visit Diagnoses Not on filedocumented in this encounter Care Teams Dehydrator Relationship Specialty Start Date End Date Jessica Santamaria MD [address] [place], [place] PCP - General 04/04/19 documented as of this encounter
--- OUTSIDE RECORDS SUMMARY | 2025-04-10 13:24 | XMS_ITS | Encounter Summary ---
Author Organization [facility] Address [address] [place] [address] Phone Care Team Providers Care Assistant Dean Name Role Phone Jessica Santamaria MD Primary Care Provider [phone] Encounter Details Date Type Department Care Team (Late Contact Info) Description 09/28/2023 Documentation Only [facility] [place], [address] [place] [address] [place], [place] [address] [place] [address] Social History Tobacco Use Types [...] Support [facility] [place] [address] [place] [address] Shavon Ng FNP-C [address] [place] [address] documented as of this encounter Visit Diagnoses Not on filedocumented in this encounter Care Teams Assistant Dean Relationship Specialty Start Date End Date Jessica Santamaria MD [address] [place], [place] PCP - General 04/04/19 documented as of this encounter
--- OUTSIDE RECORDS SUMMARY | 2025-04-10 13:24 | XMS_ITS | Encounter Summary ---
Author Organization [facility] Address [address] [place] [address] Phone Care Team Providers Care Isotope Hydrologist Name Role Phone Jessica Santamaria MD Primary Care Provider [phone] Encounter Details Date Type Department Care Team (Late Contact Info) Description 09/18/2024 Documentation Only [facility] [place], [address] [place] [address] [place], [place] [address] [place] [address] Social History Tobacco Use Types [...] [facility] [place] [address] [place] [address] Shavon Ng FNP-C [address] [place] [address] documented as of this encounter Visit Diagnoses Not on filedocumented in this encounter Care Teams Isotope Hydrologist Relationship Specialty Start Date End Date Jessica Santamaria MD [address] [place], [place] PCP - General 04/04/19 documented as of this encounter
--- OUTSIDE RECORDS SUMMARY | 2025-04-10 13:24 | XMS_ITS | Encounter Summary ---
Author Organization [facility] [place], Address [address] [place] [address] Phone Care Team Providers Care Teaching Specialists Name Role Phone Jessica Santamaria MD Primary Care Provider [phone] Reason for Visit * Reason Comments Med Refill Encounter Details Date Type Department Care Team (Late st Contact Info) Description 06/23/2021 Refill [facility] [address] [place] [address] Rony Donato PA [address] [place] [address] [place] [address] Social History Tobacco Use Types [...] Services [facility] [address] [place] [address] Shavon Ng FNP-C [address] [place] [address] documented as of this encounter Visit Diagnoses Not on filedocumented in this encounter Care Teams Teaching Specialists Relationship Specialty Start Date End Date Jessica Santamaria MD [address] [place], [place] PCP - General 04/04/19 documented as of this encounter
--- OUTSIDE RECORDS SUMMARY | 2025-04-10 13:24 | XMS_ITS | Encounter Summary ---
Author Organization [facility] [place], Address [address] [place] [address] Phone Care Team Providers Care Petrographer Name Role Phone Jessica Santamaria MD Primary Care Provider [phone] Reason for Visit * Reason Comments Med Refill Encounter Details Date Type Department Care Team (Late st Contact Info) Description 07/20/2023 Refill [facility] [address] [place] [address] Rony Donato PA [address] [place] [address] [place] [address] Social History Tobacco Use Types [...] & Transplant Services [facility] [address] [place] [address] Shavon Ng FNP-C [address] [place] [address] documented as of this encounter Visit Diagnoses Not on filedocumented in this encounter Care Teams Petrographer Relationship Specialty Start Date End Date Jessica Santamaria MD [address] [place], [place] PCP - General 04/04/19 documented as of this encounter
--- OUTSIDE RECORDS SUMMARY | 2025-04-10 13:24 | XMS_ITS | Encounter Summary ---
Author Organization [facility] Address [address] [place] [address] Phone Care Team Providers Care Gun Fertilizer Name Role Phone Jessica Santamaria MD Primary Care Provider [phone] Encounter Details Date Type Department Care Team (Late st Contact Info) Description 09/15/2024 Telephone [facility] [address] [place] [address] Karyn Ross Social History Tobacco [...] tender and painful. Please return the call [phone] - thank you documented in this encounter Plan of Treatment Upcoming Encounters Date Type Department Care Team (Late st Contact Info) Description 06/14/2025 1:00 PM EST Clinical Support [facility] [address] [place] [address] Shavon Ng, HAI-C [address] [place] [address] documented as of this encounter Visit Diagnoses Not on filedocumented in this encounter Care Teams Gun Fertilizer Relationship Specialty Start Date End Date Jessica Santamaria MD [address] [place] [address] PCP - General 04/04/19 documented as of this encounter
--- OUTSIDE RECORDS SUMMARY | 2025-04-10 13:24 | XMS_ITS | Encounter Summary ---
Author Organization [facility] [place], Address [address] [place] [address] Phone Care Team Providers Care Cherry Pitter Name Role Phone Jessica Santamaria MD Primary Care Provider [phone] Reason for Visit * Reason Comments Med Refill Encounter Details Date Type Department Care Team (Late st Contact Info) Description 08/24/2022 Refill [facility] [address] [place] [address] Rony Donato PA [address] [place] [address] [place] [address] Social History Tobacco Use Types [...] Clinical Support [facility] [address] [place] [address] Shavon Ng FNP-C [address] [place] [address] documented as of this encounter Visit Diagnoses Not on filedocumented in this encounter Care Teams Cherry Pitter Relationship Specialty Start Date End Date Jessica Santamaria MD [address] [place], [place] PCP - General 04/04/19 documented as of this encounter
--- OUTSIDE RECORDS SUMMARY | 2025-04-10 13:24 | XMS_ITS | Encounter Summary ---
Author Organization [facility] Address [address] [place] [address] Phone Care Team Providers Care Partner Marketing Manager Name Role Phone Jessica Santamaria MD Primary Care Provider [phone] Encounter Details Date Type Department Care Team (Late Contact Info) Description 01/23/2025 Documentation Only [facility] [place], [address] [place] [address] [place]ot [place], [place] [address] [place] [address] Social History Tobacco Use Types [...] Support [facility] [place] [address] [place] [address] Shavon Ng FNP-C [address] [place] [address] documented as of this encounter Visit Diagnoses Not on filedocumented in this encounter Care Teams Partner Marketing Manager Relationship Specialty Start Date End Date Jessica Santamaria MD [address] [place], [place] PCP - General 04/04/19 documented as of this encounter
--- OUTSIDE RECORDS SUMMARY | 2025-04-10 13:24 | XMS_ITS | Encounter Summary ---
Author Organization [facility] [place], Address [address] [address] Phone Care Team Providers Care Folding Machine Setter Name Role Phone Jessica Santamaria MD Primary Care Provider Reason for Visit * Reason Comments Med Refill Encounter Details Date Type Department Care Team (Late st Contact Info) Description 07/13/2022 Refill [facility] [address] [place] [address] Alvaro Stratton MD [address] [place] [address] [place] [address] Social History Tobacco Use Types Packs/Day Years [...] Question Answer Date of Assessment Author BP 110/68 07/15/2022 10:11 AM Rony Oconnor PA Height 61 07/15/2022 10:11 AM Rony Oconnor PA Weight 2854.4 07/15/2022 10:11 AM Rony Oconnor PA * BMI (Calculated) Answer Date of Assessment Author 33.7 07/15/2022 10:11 AM Rony Haro PA * BP Location Answer Date of Assessment Author Right upper arm 07/15/2022 10:11 AM Rony Haro PA * Question Answer Date of Assessment Author BP 110/68 07/15/2022 10:11 AM Rony Oconnor PA Height 61 07/15/2022 10:11 AM Rony Oconnor PA Weight 2854.4 07/15/2022 10:11 AM Rony Oconnor PA * BMI (Calculated) Answer Date of Assessment Author 33.7 07/15/2022 10:11 AM Rony Haro PA * BP Location Answer Date of Assessment Author Right upper arm 07/15/2022 10:11 AM Rony Haro PA documented as of this encounter Plan of Treatment Upcoming Encounters Date Type Department Care Team (Late st Contact Info) Description 06/14/2025 1:00 PM EST Clinical Support [facility] [place] [address] [place] [address] Shavon Ng SHIFT NURSE MANAGER-C [address] [place] [address] documented as of this encounter Visit Diagnoses Not on filedocumented in this encounter Care Teams Folding Machine Setter Relationship Specialty Start Date End Date Jessica Santamaria MD [address] [place], [place] PCP - General 04/04/19 documented as of this encounter
--- OUTSIDE RECORDS SUMMARY | 2025-04-10 13:24 | XMS_ITS | Encounter Summary ---
Author Organization [facility] Address [address] [place] [address] Phone Care Team Providers Care Mold Bunch Trimmer Name Role Phone Jessica Santamaria MD Primary Care Provider [phone] Encounter Details Date Type Department Care Team (Late Contact Info) Description 03/19/2025 Documentation Only [facility] [place], [address] [place] [address] [place], [place] [address] [place] [address] Social History Tobacco Use Types [...] Support [facility] [place] [address] [place] [address] Shavon Ng FNP-C [address] [place] [address] documented as of this encounter Visit Diagnoses Not on filedocumented in this encounter Care Teams Mold Bunch Trimmer Relationship Specialty Start Date End Date Jessica Santamaria MD [address] [place], [place] PCP - General 04/04/19 documented as of this encounter
--- OUTSIDE RECORDS SUMMARY | 2025-04-10 13:24 | XMS_ITS | Encounter Summary ---
Author Organization [facility] Address [address] [place] [address] Phone Care Team Providers Care Air Conditioning Coil Assembler Name Role Phone Jessica Santamaria MD Primary Care Provider [phone] Encounter Details Date Type Department Care Team (Late Contact Info) Description 11/18/2023 Documentation Only [facility] [place], [address] [place] [address] [place], [place] [address] [place] [address] Social History Tobacco Use Types [...] Support [facility] [place] [address] [place] [address] Shavon Ng FNP-C [address] [place] [address] documented as of this encounter Visit Diagnoses Not on filedocumented in this encounter Care Teams Air Conditioning Coil Assembler Relationship Specialty Start Date End Date Jessica Santamaria MD [address] [place], [place] PCP - General 04/04/19 documented as of this encounter
--- OUTSIDE RECORDS SUMMARY | 2025-04-10 13:24 | XMS_ITS | Encounter Summary ---
Author Organization [facility] Address [address] [place] [address] Phone Care Team Providers Care Home Teaching Grades 7 And 8 Teacher Name Role Phone Jessica Santamaria MD Primary Care Provider [phone] Encounter Details Date Type Department Care Team (Late Contact Info) Description 09/18/2024 Documentation Only [facility] [place], [address] [place] [address] [place], [place] [address] [place] [address] Social History Tobacco Use Types [...] Support [facility] [place] [address] [place] [address] Shavon Ng FNP-C [address] [place] [address] documented as of this encounter Visit Diagnoses Not on filedocumented in this encounter Care Teams Home Teaching Grades 7 And 8 Teacher Relationship Specialty Start Date End Date Jessica Santamaria MD [address] [place], [place] PCP - General 04/04/19 documented as of this encounter
--- OUTSIDE RECORDS SUMMARY | 2025-04-10 13:24 | XMS_ITS | Encounter Summary ---
Author Organization [facility] Address [address] [place] [address] Phone Care Team Providers Care Datacap Developer Name Role Phone Jessica Santamaria MD Primary Care Provider [phone] Encounter Details Date Type Department Care Team (Late st Contact Info) Description 09/20/2023 Documentation Only [facility] [place], [address] [place] [place] [address] [place], [place] [address] [place] [address] Social History Tobacco Use Types [...] Support [facility] [place] [address] [place] [address] Shavon Ng FNP-C [address] [place] [address] documented as of this encounter Visit Diagnoses Not on filedocumented in this encounter Care Teams Datacap Developer Relationship Specialty Start Date End Date Jessica Santamaria MD [address] [place], [place] PCP - General 04/04/19 documented as of this encounter
--- OUTSIDE RECORDS SUMMARY | 2025-04-10 13:24 | XMS_ITS | Encounter Summary ---
Author Organization [facility] Address [address] [place] [address] Phone Care Team Providers Care Manufacturing Operations Manager Name Role Phone Jessica Santamaria MD Primary Care Provider [phone] Encounter Details Date Type Department Care Team (Late st Contact Info) Description 04/28/2024 Documentation Only [facility] [place], [address] [place] [address] [place], [place] [address] [place] [address] Social History Tobacco Use Types [...] as of this encounter Functional Status * BP Answer Date of Assessment Author 126/72 04/28/2024 11:50 AM Rony Haro PA * Height Answer Date of Assessment Author 61 04/28/2024 11:50 AM Rony Haro PA * Weight Answer Date of Assessment Author 2656 04/28/2024 11:50 AM Rony Haro PA * BMI (Calculated) Answer Date of Assessment Author 31.4 04/28/2024 11:50 AM EST Kinga, Jyovani, PA * BP Location Answer Date of Assessment Author Right upper arm 04/28/2024 11:50 AM Rony Haro PA * BP Answer Date of Assessment Author 126/72 04/28/2024 11:50 AM Rony Haro PA * Height Answer Date of Assessment Author 61 04/28/2024 11:50 AM Rony Haro PA * Weight Answer Date of Assessment Author 2656 04/28/2024 11:50 AM Rony Haro PA * BMI (Calculated) Answer Date of Assessment Author 31.4 04/28/2024 11:50 AM Rony Haro PA * BP Location Answer Date of Assessment Author Right upper arm 04/28/2024 11:50 AM Rony Haro PA documented as of this encounter Plan of Treatment Upcoming Encounters Date Type Department Care Team (Late st Contact Info) Description 06/14/2025 1:00 PM EST Clinical Support [facility] [place] [address] [place] [address] Shavon Ng FNP-Tanesha [address] [place] [address] documented as of this encounter Visit Diagnoses Not on filedocumented in this encounter Care Teams Manufacturing Operations Manager Relationship Specialty Start Date End Date Jessica Santamaria MD [address] [place], [place] PCP - General 04/04/19 documented as of this encounter
--- OUTSIDE RECORDS SUMMARY | 2025-04-10 13:24 | XMS_ITS | Encounter Summary ---
Author Organization [facility] [place], Address [address] [place] [address] Phone Care Team Providers Care Blindstitch Machine Operator Name Role Phone Jessica Santamaria MD Primary Care Provider [phone] Reason for Visit * Reason Comments Med Refill Encounter Details Date Type Department Care Team (Late st Contact Info) Description 06/23/2022 Refill [facility] [address] [place] [address] Rony Donato PA [address] [place] [address] [place] [address] Social History Tobacco Use Types [...] Clinical Support [facility] [address] [place] [address] Shavon Ng FNP-C [address] [place] [address] documented as of this encounter Visit Diagnoses Not on filedocumented in this encounter Care Teams Blindstitch Machine Operator Relationship Specialty Start Date End Date Jessica Santamaria MD [address] [place], [place] PCP - General 04/04/19 documented as of this encounter
--- OUTSIDE RECORDS SUMMARY | 2025-04-10 13:24 | XMS_ITS | Encounter Summary ---
Author Organization [facility] Address [address] [place] [address] Phone Care Team Providers Care Senior Scheduler Name Role Phone Jessica Santamaria MD Primary Care Provider [phone] Encounter Details Date Type Department Care Team (Late Contact Info) Description 09/27/2024 Documentation Only [facility] [place], [address] [place] [address] [place]OME[place], [place] [address] [place] [address] Social History Tobacco Use [...] Support [facility] [place] [address] [place] [address] Shavon Ng FNP-C [address] [place] [address] documented as of this encounter Visit Diagnoses Not on filedocumented in this encounter Care Teams Senior Scheduler Relationship Specialty Start Date End Date Jessica Santamaria MD [address] [place], [place] PCP - General 04/04/19 documented as of this encounter
--- OUTSIDE RECORDS SUMMARY | 2025-04-10 13:24 | XMS_ITS | Encounter Summary ---
Author Organization [facility] [place], Address [address] [place] [address] Phone Care Team Providers Care Rotary Soil Stabilizer Name Role Phone Jessica Santamaria MD Primary Care Provider Reason for Visit * Reason Comments Med Refill Encounter Details Date Type Department Care Team (Late st Contact Info) Description 06/11/2021 Refill [facility] [address] [place] [address] Rony Donato PA [address] [place] [address] [place] [address] Social History Tobacco Use Types [...] Support [facility] [address] [place] [address] Shavon Ng FNP-C [address] [place] [address] documented as of this encounter Visit Diagnoses Not on filedocumented in this encounter Care Teams Rotary Soil Stabilizer Relationship Specialty Start Date End Date Jessica Santamaria MD [address] [place], [place] PCP - General 04/04/19 documented as of this encounter
--- OUTSIDE RECORDS SUMMARY | 2025-04-10 13:24 | XMS_ITS | Encounter Summary ---
Author Organization [facility] Address [address] [address] Phone Care Team Providers Care Improvement Intern Name Role Phone Jessica Santamaria MD Primary Care Provider [phone] Reason for Visit * Reason Comments Med Refill Encounter Details Date Type Department Care Team (Late st Contact Info) Description 04/12/2023 Refill [facility] [place], [address] [place] [address] Alvaro Stratton MD [address] [place] [address] Social History Tobacco Use Types [...] documented as of this encounter Functional Status documented as of this encounter Plan of Treatment Upcoming Encounters Date Type Department Care Team (Late st Contact Info) Description 06/14/2025 1:00 PM EST Clinical Support [facility] [place] [address] [place] [address] Shavon Ng FNP-C [address] [place] [address] documented as of this encounter Visit Diagnoses Not on filedocumented in this encounter Care Teams Improvement Intern Relationship Specialty Start Date End Date Jessica Santamaria MD [address] [place], [place] PCP - General 04/04/19 documented as of this encounter
--- OUTSIDE RECORDS SUMMARY | 2025-04-10 13:24 | XMS_ITS | Encounter Summary ---
Author Organization [facility] Address [address] [place] [address] Phone Care Team Providers Care Rubber Goods Tester Name Role Phone Jessica Santamaria MD Primary Care Provider [phone] Encounter Details Date Type Department Care Team (Late Contact Info) Description 08/20/2023 Documentation Only [facility] [place], [address] [address] [place], [place] [address] [place] [address] Social History Tobacco Use [...] Support [facility] [place] [address] [address] Shavon Ng FNP-C [address] [place] [address] documented as of this encounter Visit Diagnoses Not on filedocumented in this encounter Care Teams Rubber Goods Tester Relationship Specialty Start Date End Date Jessica Santamaria MD [address] [place], [place] PCP - General 04/04/19 documented as of this encounter
--- OUTSIDE RECORDS SUMMARY | 2025-04-10 13:24 | XMS_ITS | Encounter Summary ---
Author Organization [facility] [place], Address [address] [place] [address] Phone Care Team Providers Care Real Estate Closer Name Role Phone Jessica Santamaria MD Primary Care Provider [phone] Encounter Details Date Type Department Care Team (Late st Contact Info) Description 06/30/2024 Documentation Only [facility] [place], [address] [place] [place] [address] [place], [place] [address] [place] [address] Social History Tobacco Use Types [...] * BP Answer Date of Assessment Author [id number] 07/03/2024 6:48 PM EST Shavon Ng FNP-C * Pulse Answer Date of Assessment Author 77 07/03/2024 6:48 PM EST Shavon Ng FNP-Tanesha * Weight Answer Date of Assessment Author 2572.8 07/03/2024 6:48 PM EST Shavon Ng FNP-C * BP Answer Date of Assessment Author 129/59 07/03/2024 6:48 PM EST Shavon Ng FNP-C * Weight Answer Date of Assessment Author 2572.8 07/03/2024 6:48 PM EST Shavon Ng FNP-C documented as of this encounter Plan of Treatment Upcoming Encounters Date Type Department Care Team (Late st Contact Info) Description 06/14/2025 1:00 PM EST Clinical Support [facility] [place] [address] [place] [address] Shavon Ng FNP-C [address] [place] [address] documented as of this encounter Visit Diagnoses Not on filedocumented in this encounter Care Teams Real Estate Closer Relationship Specialty Start Date End Date Jessica Santamaria MD [address] [place], [place] PCP - General 04/04/19 documented as of this encounter
--- OUTSIDE RECORDS SUMMARY | 2025-04-10 13:24 | XMS_ITS | Encounter Summary ---
Author Organization [facility] Address [address] [place] [address] Phone Care Team Providers Care Advertising Assistant Manager Name Role Phone Jessica Santamaria MD Primary Care Provider [phone] Encounter Details Date Type Department Care Team (Late Contact Info) Description 02/16/2024 Documentation Only [facility] [place], [address] [place] [address] [place], [place] [address] [place] [address] Social History Tobacco Use Types [...] Support [facility] [place] [address] [place] [address] Shavon Ng FNP-C [address] [place] [address] documented as of this encounter Visit Diagnoses Not on filedocumented in this encounter Care Teams Advertising Assistant Manager Relationship Specialty Start Date End Date Jessica Santamaria MD [address] [place], [place] PCP - General 04/04/19 documented as of this encounter
--- OUTSIDE RECORDS SUMMARY | 2025-04-10 13:24 | XMS_ITS | Encounter Summary ---
Author Organization [facility] [place], Address [address] [place] [address] Phone Care Team Providers Care Fire Control Technician B Name Role Phone Jessica Santamaria MD Primary Care Provider [phone] Encounter Details Date Type Department Care Team (Late st Contact Info) Description 06/30/2024 Documentation Only [facility] [place], [address] [place] [address] [place], [place] [address] [place] [address] Social History Tobacco Use Types [...] 77 07/03/2024 6:48 PM EST Shavon Ng FNP-aTnesha * Weight Answer Date of Assessment Author [...] Support [facility] [place] [address] [place] [address] Shavon Ng FNP-C [address] [place] [address] documented as of this encounter Visit Diagnoses Not on filedocumented in this encounter Care Teams Fire Control Technician B Relationship Specialty Start Date End Date Jessica Santamaria MD [address] [place], [place] PCP - General 04/04/19 documented as of this encounter
--- OUTSIDE RECORDS SUMMARY | 2025-04-10 13:24 | XMS_ITS | Clinical Summary ---
Author Organization [facility] [place], Address [address] [place] [address] [place] [address] Phone Care Team Providers Care Sexual Assault Social Worker Name Role Phone Jessica Santamaria MD Primary Care Provider [phone] Allergies Active Allergy Reactions Criticality Noted Date [...] (one) time each day 5 Active Pancrelipase, Lzo-Tjgt-Lkvs, (CREON PO) Take by mouth in the [...] Support [facility] [place] [address] [place] [address] Shavon Ng FNP-C Stage 3a chronic kidney disease (HCC) (Primary Dx); History of renal transplant; History of immunosuppressive therapy 03/27/2025 Orders Only [facility] [address] [address] Hiwot Smith [place] Stage 3b chronic kidney [...] Only [facility] [address] [place] [address] Hiwot Smith [place] 03/12/2025 Documentation Only [facility] [address] [place] [address] Hiwot Smith [place] 02/14/2025 Orders Only [facility] [address] [place] [address] Zoe Vásquez, RN History of renal transplant (Primary Dx); History of immunosuppressive therapy; Stage 3b chronic kidney disease (HCC) 02/14/2025 Telephone [facility] [address] [place] [address] Zoe Vásquez, ANABELL 02/09/2025 Telephone [facility] Of [address] [place] [address] Zoe Vásquez RN 02/08/2025 4:15 PM EDT Clinical Support [facility] [address] [place] [address] Shavon Ng FNP-C Essential hypertension (Primary Dx); History of renal transplant; History of immunosuppressive therapy; Stage 3a chronic kidney disease (HCC) 02/01/2025 Orders Only [facility] [address] [place] [address] Hiwot Smith [place] Kidney replaced by transplant [...] Visit [facility] [address] [place] [address] [place] [address] Damian Norris MD 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) 01/23/2025 Documentation Only [facility] Of [address] [place] [address] Hiwot Smith [place] 01/16/2025 Telephone [facility] [address] [place] [address] Antonia Jackson 01/15/2025 10:00 AM EDT Procedure visit [facility] Access [address] [place] [address] Tereso Arrieta MD End stage renal disease (HCC) (Primary Dx); Other mechanical complication of surgically created arteriovenous fistula, initial encounter (HCC) 01/15/2025 Telephone [facility] Access [address] [place] [address] Katharina Butt 01/12/2025 Telephone [facility] Access [address] [place] [address] Antonia Jackson from Last 3 Months Immunizations [...] Support [facility] [place] [address] [place] [address] Shavon Ng, SUPERVISOR [employer]-C [address] [place] [address] Health Maintenance Due Date Last Done Comments [...] AM EDT) Hemoglobin A1C 6.4(H) (4.0-5.6) % [facility] Comment: MONITORING: In known diabetic patients, hemoglobin A1c targets should be discussed with health care provider. DIAGNOSTIC USE: The [place] Diabetes [employer] (ADA) and the World Health [...] Supplement 1 Testing performed or reported by [facility], a Service of [facility], [address] [place] [address] Tate Pham MD, Jumpbasting Collar Baster [facility]# [id number] Blood specimen (specimen) Venous blood / Unknown 11/13/2022 9:47 AM EDT 11/13/2022 9:48 AM EDT us [facility] BLOOD ORDERABLES Final Re sult [facility] from Last 3 Months or Most Recently Relevant to Health Maintenance Insurance [address] [place] [id number] [place] [address] Medicaid Care Teams Sexual Assault Social Worker Relationship Specialty Start Date End Date Jessica Santamaria MD [address] [place] [address] PCP - General 04/04/19
--- OUTSIDE RECORDS SUMMARY | 2025-04-10 13:24 | XMS_ITS | Encounter Summary ---
Author Organization [facility] Address [address] [place] [address] Phone Care Team Providers Care Architectural Sales Consultant Name Role Phone Jessica Santamaria MD Primary Care Provider [phone] Encounter Details Date Type Department Care Team (Late Contact Info) Description 10/05/2023 Documentation Only [facility] [place], [address] [place] [address] [place], [place] [address] [place] [address] Social History Tobacco Use Types [...] Support [facility] [place] [address] [place] [address] Shavon Ng FNP-C [address] [place] [address] documented as of this encounter Visit Diagnoses Not on filedocumented in this encounter Care Teams Architectural Sales Consultant Relationship Specialty Start Date End Date Jessica Santamaria MD [address] [place], [place] PCP - General 04/04/19 documented as of this encounter
--- OUTSIDE RECORDS SUMMARY | 2025-04-10 13:25 | XMS_ITS | Encounter Summary ---
Author Organization [facility] Address [address] [place] [address] Phone Care Team Providers Care Strip Feeder Name Role Phone Jessica Santamaria MD Primary Care Provider [phone] Encounter Details Date Type Department Care Team (Late Contact Info) Description 03/12/2025 Documentation Only [facility] [place], [address] [place] [address] [place], [place] [address] [place] [address] Social History Tobacco Use Types [...] Support [facility] [place] [address] [place] [address] Shavon Ng FNP-C [address] [place] [address] documented as of this encounter Visit Diagnoses Not on filedocumented in this encounter Care Teams Strip Feeder Relationship Specialty Start Date End Date Jessica Santamaria MD [address] [place], [place] PCP - General 04/04/19 documented as of this encounter
== END 2025-04-10 11:14 | disposition home or self-care (01) ==
LOC: HO.LAB 11:13
PROVIDERS: PCP Internal Medicine; Referring Provider Student in an Organized Health Care Education/Training Program; Visit Provider Internal Medicine
DX: S92.355A Nondisplaced fracture of fifth metatarsal bone, left foot, initial encounter for closed fracture (principal)
CPT/HCPCS: 73630

== ENCOUNTER → 2025-04-10 11:23 | Outpatient (BNV) | payer OTHER, SELFPAY | PROVIDERS: PCP Internal Medicine; Referring Provider Student in an Organized Health Care Education/Training Program; Visit Provider Radiology Diagnostic Radiology | DX: S99.922A Unspecified injury of left foot, initial encounter (principal) | CPT/HCPCS: 73630 ==

== ENCOUNTER 2025-04-12 10:06 | Outpatient (AMB) | payer OTHER, SELFPAY ==
[2025-04-12 10:16] VITALS: BP 134/80; PULSE 71; TEMP 36.3; O2SAT 98; BMI 27.3
--- NOTE | 2025-04-12 10:16 | MHC.PC.OV ---
Vital Signs 04/12/25 10:16 Height 5 ft 1 in Weight 144 lb 8 oz BMI 27.3 BP 134/80 Blood Pressure Location Lt brachial Position Sitting Pulse 71 Pulse Source Pulse Oximeter Temp 97.3 F Temp Source Temporal Artery Scan Pulse Oximetry (%) 98 Oxygen Delivery Method Room Air Intake Visit Reasons: pe Counterperson Required: No Accompanied by: Self / Same As Patient Allergies amlodipine Adverse Reaction (Intermediate, Verified 04/12/25 10:16) leg edema morphine Adverse Reaction (Mild, Verified 04/12/25 10:16) Rash Tobacco use date assessed: 04/12/25 Dental Screening Dental Screen Date: 04/12/25 Did you have a dental visit in the last 12 months?: Yes Did you have a dental problem in the last 6 months where you did not have access to dental care?: No Was dental information given to patient?: Patient has dentist HPI HPI Comments History of Present Illness Details The patient is a 59-year-old female presenting for an annual physical exam. She completed a mammogram in August, a colonoscopy in January of this year, and a bone densitometry scan in August, which revealed osteopenia. She has a scheduled eye exam for tomorrow. She has diabetes mellitus type 2 with an A1c within goal being less than 7%. Also has chronic kidney disease follow by Nephrology. Her chronic conditions include kidney disease managed with calcitriol and tacrolimus, hypertension treated with labetalol 200 mg twice daily, and hypothyroidism managed with levothyroxine 25 mcg. She also has diabetes, for which she takes Farxiga and Trajenta 5 mg. She reports constipation as her current primary problem, for which she takes Amitiza. She also has urinary incontinence, treated with Myrbetriq, and is followed by a urologist, Dr. Amie Alfred. The patient has a history of mild depression and does not consume alcohol. She had an ultrasound performed today and recent labs were reported as very good. The patient's health screenings are up to date, including a mammogram, colonoscopy, and bone densitometry. She has an upcoming eye exam. A vaccine will be administered during today's visit. A follow-up visit is recommended in four months. [facility] Medical History Left foot pain Nondisplaced fracture of fifth left metatarsal bone Injury of left foot Nondisplaced fracture of fifth metatarsal bone, left foot, initial encounter for closed fracture Nondisplaced fracture of base of fifth metacarpal bone Hx of sciatica CVA (cerebral vascular accident) Malnutrition Diabetes mellitus Right ankle pain Left ankle pain Fatigue Hair loss Back pain Pancreatic lesion Pneumonia due to COVID-19 virus Essential hypertension Surgical History History of esophagogastroduodenoscopy (EGD) Hx of colonoscopy Kidney transplant recipient AV fistula Kidney transplant status History of tubal ligation History of foot surgery History of lipoma History of benign breast tumor Family History Father CVD (cardiovascular disease) Prostate cancer Mother No problems noted. Social History Household Members: Children Housing: Apartment Alcohol intake: never Patient Tobacco Use Status: Former Tobacco user Tobacco use type: Cigarette e-Cigarette/Vaping Use: Never Used Second Hand Smoke Exposure: No service: No Current occupational status: unemployed Cognitive needs: No Hearing needs: No Vision needs: Yes Questionnaire PHQ-9 Over the last 2 weeks, how often have you been bothered by any of the following problems? 1. Little interest or pleasure in doing things: several days 2. Feeling down, depressed, or hopeless: several days 3. Trouble falling or staying asleep, or sleeping too much: nearly every day 4. Feeling tired or having little energy: nearly every day 5. Poor appetite or overeating: more than half the days 6. Feeling bad about yourself - or that you are a failure or have let yourself or your family down: not at all 7. Trouble concentrating on things, such as reading the newspaper or watching television: more than half the days 8. Moving or speaking so slowly that other people could have noticed. Or the opposite - being so fidgety or restless that you have been moving around a lot more than usual: several days 9. Thoughts that you would be better off or of hurting yourself in some way: not at all Total score: 13 Depression Screening Interpretation: Positive Depression Screening Follow-up: Existing condition, Follow-up Visit Requested and Declines treatment Depression Screening Done: Yes 26767 - PHQ-9 Billing: Yes Source: Developed by Drs. Tereso Jones, Marilyn Cedeno, Homer Huston and colleagues, with an educational catrina from [employer] Thrive Questionnaire Date Thrive assessed: 09/27/24 I am a: Patient What is your living situation today?: I have a steady place to live Within the past 12 months, did the food you bought not last and you didn't have the money to get more?: Sometimes True Within the past 12 months, did you worry whether your food would run out before you got money to buy more?: Often true Do you have trouble paying for medicines?: No Do you have trouble getting transportation to medical appointments?: No Do you have trouble paying your heating and electricity bill?: Yes Do you have trouble taking care of your child, family member or friend?: I choose not to answer this question Do you have trouble with day-to-day activities such as bathing, preparing meals, shopping, managing finances, etc.?: No Are you currently unemployed and looking for a job?: No Are you interested in more education?: No Please select the resources that you would like help with: Food Currently or been in a relationship where the following occur: No concerns reported THRIVE Score: 3 AUDIT C Alcohol Use Questionnaire (AUDIT-C) 1. How often do you have a drink containing alcohol?: Never 3. How often do you have six or more drinks on one occasion?: Never Total Score: 0 Score Reviewed/Action Taken: No JONNIE-7 AMB Questionnaire JONNIE-7 Date JONNIE - 7 assessed: 01/23/25 Feeling nervous, anxious, or on edge: 1 = Several days Not being able to stop or control worryin = Several days Worrying too much about different things: 2 = More than half the days Trouble relaxin = Not at all Being so restless that it is hard to sit still: 1 = Several days Becoming easily annoyed or irritable: 1 = Several days Feeling afraid as if something awful might happen: 1 = Several days Total JONNIE-7 score (0-4 normal; 5-9 mild; 10-14 moderate; 15-21 severe): 7 Source: Developed by Marilyn Lees, Homer Huston and colleagues, with an educational catrina from [employer]. JONNIE-7 Assessment Billing JONNIE-7 Assessment Tool: JONNIE-7 Assessment 19136 Review of Systems Const All systems reviewed & are unremarkable except as noted in HPI and below Card Denies chest pain at rest, Denies chest pain with activity, Denies edema, Denies irregular heart rhythm, Denies claudication, Denies dyspnea, Denies dyspnea on exertion, Denies orthopnea, Denies paroxysmal nocturnal dyspnea and Denies slow heart rate Resp Denies cough, Denies dyspnea and Denies dyspnea on exertion GI Denies abdominal pain, Denies change in bowel habits, Denies excessive flatus, Denies nausea and Denies vomiting Physical exam (Primary Care) Vital Signs: Last Vital Signs Temp 97.3 F 04/12/25 10:16 Pulse 71 04/12/25 10:16 BP 134/80 04/12/25 10:16 Pulse Ox 98 04/12/25 10:16 Oxygen Delivery Method Room Air 04/12/25 10:16 BMI result Body Mass Index 27.3 Tobacco/Smoking Status: Tobacco use Status Tobacco use date assessed 04/12/25 04/12/25 10:22 Patient Tobacco Use Status Former Tobacco user 04/12/25 10:22 Tobacco use type Cigarette 04/12/25 10:22 e-Cigarette/Vaping Use Never Used 04/12/25 10:22 PHQ-9: PHQ-9 Score PHQ-9: Total score 13 04/12/25 10:44 Depression Screening Interpretation: Positive Depression Screening Follow-up: Existing condition, Follow-up Visit Requested and Declines treatment Thrive Assessment: Date of Thrive Assessment Date Thrive assessed 09/27/24 04/12/25 10:22 Currently or been in a relationship where the following occur: No concerns reported HENMT Head: Yes normal to inspection, Yes normocephalic and Yes atraumatic Ears: external ears normal Eyes General: appearance normal, both eyes and all related structures Eyelids: Yes eyelids normal Conjunctivae: conjunctivae normal Neck Neck: Yes normal visual inspection and Yes supple Resp Effort & Inspection: normal respiratory effort Auscultation: clear to auscultation bilaterally Cardio Jugular venous distension: no JVD Rate: regular rate Rhythm: regular rhythm Heart sounds: S1 normal heart sound present and S2 normal heart sound present GI Inspection: Yes normal to inspection Palpation (GI): Soft to palpation and nontender Auscultation: normal bowel sounds Skin General skin exam: no rashes or lesions noted Neuro General: no focal motor deficits Extrem General: Yes full ROM Psych Appearance: grossly normal Office Procedures Flu Questionnaire Does the patient have a severe egg allergy?: No Does the patient have severe life threatening allergies?: No Does the patient have a fever or illness today?: No Has the patient ever had Guillain-Tupman Syndrome?: No Has the patient ever had any past reaction to a flu shot?: No Immunizations Fluarix [id number] (PF) 45 mcg (15 mcg x 3)/0.5 mL IM syringe Performing Provider: Jessica Dietz MD Performing Location[facility] [place] [facility] Administered by: Beverly Patel CMA on 04/12/25 10:44 Dose Route Admin Location Dispensed Lot Number Expiration Date NDC Commercial Credit Analyst 0.5 mL IM Left Deltoid 0.5 mL [id number] 11/27/25 02403-959-92 [employer] VIS Given Date VIS Provided VIS Publication Date 04/12/25 Single Vaccine 24 Eligibility Eligibility Date Funding Source Not [facility] Eligible 04/12/25 Private Coding Level of Care Code Est Pt Prev Care 40-64y(53095) Diagnoses Physical exam Z00.00 Mild recurrent major depression F33.0 Type 2 diabetes mellitus with hyperglycemia, without long-term current use of insulin E11.65 Diabetes mellitus type: type 2 Diabetes mellitus half-way insulin use: without exterminator use Diabetes mellitus complication status: with hyperglycemia Stage 3b chronic kidney disease N18.32 Chronic kidney disease stage 3 subtype: stage 3b (GFR 30-44) Additional Codes JONNIE-7 Assessment Billing - JONNIE-7 Assessment Tool: JONNIE-7 Assessment 76287 ([id number]) PHQ-9 - 56020 - PHQ-9 Billing: Yes ([id number]) Time Spent (min) 30 Assessment & Plan Assessment & Plan (1) Physical exam: Code(s): Z00.00 - Encounter for general adult medical examination without abnormal findings Category: Medical (2) Mild recurrent major depression: Code(s): F33.0 - Major depressive disorder, recurrent, mild Category: Medical (3) Diabetes mellitus: Code(s): E11.9 - Type 2 diabetes mellitus without complications Category: Medical Qualifiers: Diabetes mellitus type: type 2 Diabetes mellitus half-way insulin use: without exterminator use Diabetes mellitus complication status: with hyperglycemia Qualified Code(s): E11.65 - Type 2 diabetes mellitus with hyperglycemia (4) CKD (chronic kidney disease) stage 3, GFR 30-59 ml/min: Code(s): N18.30 - Chronic kidney disease, stage 3 unspecified Category: Medical Qualifiers: Chronic kidney disease stage 3 subtype: stage 3b (GFR 30-44) Qualified Code(s): N18.32 - Chronic kidney disease, stage 3b Plan Repeat in a year. Continue yearly mammogram. DEXA scan to be repeated 2026. Colonoscopy done 2024. Orders: Orders Influenza [id number] Immunization Today Z23 - Encounter for immunization
--- OUTSIDE RECORDS SUMMARY | 2025-04-12 12:09 | XMS_ITS | Encounter Summary ---
Author Organization [facility] Address [address] [place] [address] Phone Care Team Providers Care Electrophonic Engineer Name Role Phone Jessica Santamaria MD Primary Care Provider [phone] Encounter Details Date Type Department Care Team (Late Contact Info) Description 09/28/2023 Documentation Only [facility] [place], [address] [address] [place], [place] [address] [place] [address] Social History Tobacco Use Types [...] Support [facility] [place] [address] [address] Shavon Ng FNP-C [address] [place] [address] documented as of this encounter Visit Diagnoses Not on filedocumented in this encounter Care Teams Electrophonic Engineer Relationship Specialty Start Date End Date Jessica Santamaria MD [address] [place], [place] PCP - General 04/04/19 documented as of this encounter
--- OUTSIDE RECORDS SUMMARY | 2025-04-12 12:09 | XMS_ITS | Encounter Summary ---
Author Organization [facility] [place], Address [address] [address] Phone Care Team Providers Care Beauty Consultant Name Role Phone Jessica Santamaria MD Primary Care Provider [phone] Reason for Visit * Reason Comments Med Refill Encounter Details Date Type Department Care Team (Late st Contact Info) Description 07/13/2022 Refill [facility] [address] [place] [address] Alvaro Stratton MD [address] [place] [address] [place] [address] Social History Tobacco Use Types Packs/Day Years [...] Support [facility] [place] [address] [place] [phone] Shavon Ng HEAVY EQUIPMENT OPERATOR APPRENTICE-C [address] [place] [address] documented as of this encounter Visit Diagnoses Not on filedocumented in this encounter Care Teams Beauty Consultant Relationship Specialty Start Date End Date Jessica Santamaria MD [address] [place], [place] PCP - General 04/04/19 documented as of this encounter
--- OUTSIDE RECORDS SUMMARY | 2025-04-12 12:09 | XMS_ITS | Encounter Summary ---
Author Organization [facility] Address [address] [place] [address] Phone Care Team Providers Care Supervisor Covering And Lining Name Role Phone Jessica Santamaria MD Primary Care Provider [phone] Encounter Details Date Type Department Care Team (Late Contact Info) Description 08/20/2023 Documentation Only [facility] [place], [address] [place] [address] [place], [place] [address] [place] [address] Social History Tobacco Use Types [...] Support [facility] [place] [address] [place] [address] Shavon Ng FNP-C [address] [place] [address] documented as of this encounter Visit Diagnoses Not on filedocumented in this encounter Care Teams Supervisor Covering And Lining Relationship Specialty Start Date End Date Jessica Santamaria MD [address] [place], [place] PCP - General 04/04/19 documented as of this encounter
--- OUTSIDE RECORDS SUMMARY | 2025-04-12 12:09 | XMS_ITS | Encounter Summary ---
Author Organization [facility] [place], Address [address] [place] [address] Phone Care Team Providers Care Sales Special Agent Name Role Phone Jessica Santamaria MD Primary Care Provider [phone] Reason for Visit * Reason Comments Med Refill Encounter Details Date Type Department Care Team (Late st Contact Info) Description 06/23/2021 [facility]ill [facility] [address] [place] [address] Rony Donato PA [address] [place] [address] [place] [address] Social History Tobacco Use Types [...] Clinical Support [facility] [address] [place] [address] Shavon Ng FNP-C [address] [place] [address] documented as of this encounter Visit Diagnoses Not on filedocumented in this encounter Care Teams Sales Special Agent Relationship Specialty Start Date End Date Jessica Santamaria MD [address] [place], [place] PCP - General 04/04/19 documented as of this encounter
--- OUTSIDE RECORDS SUMMARY | 2025-04-12 12:09 | XMS_ITS | Encounter Summary ---
Author Organization [facility] [place], Address [address] [place] [address] Phone Care Team Providers Care Razor Sharpener Name Role Phone Jessica Santamaria MD Primary Care Provider [phone] Reason for Visit * Reason Comments Med Refill Encounter Details Date Type Department Care Team (Late st Contact Info) Description 04/16/2022 Refill [facility] [address] [place] [address] Rony oDnato PA [address] [place] [address] [place] [phone] Social History Tobacco Use Types Packs/Day Years [...] Support [facility] [address] [place] [address] Shavon Ng FNP-C [address] [place] [address] [place] [address] documented as of this encounter Visit Diagnoses Not on filedocumented in this encounter Care Teams Razor Sharpener Relationship Specialty Start Date End Date Jessica Santamaria MD [address] [place], [place] PCP - General 04/04/19 documented as of this encounter
--- OUTSIDE RECORDS SUMMARY | 2025-04-12 12:09 | XMS_ITS | Encounter Summary ---
Author Organization [facility] Address [address] [place] [address] Phone Care Team Providers Care Drama Director Name Role Phone Jessica Santamaria MD Primary Care Provider [phone] Encounter Details Date Type Department Care Team (Late Contact Info) Description 09/18/2024 Documentation Only [facility] [place], [address] [place] [place] [address] [place], [place] [address] [place] [address] Social History Tobacco Use Types [...] Support [facility] [place] [address] [place] [address] Shavon Ng FNP-C [address] [place] [place] [address] documented as of this encounter Visit Diagnoses Not on filedocumented in this encounter Care Teams Drama Director Relationship Specialty Start Date End Date Jessica Santamaria MD [address] [place], [place] PCP - General 04/04/19 documented as of this encounter
--- OUTSIDE RECORDS SUMMARY | 2025-04-12 12:09 | XMS_ITS | Encounter Summary ---
Author Organization [facility] Address [address] [place] [address] Phone Care Team Providers Care Hot Dimpling Machine Operator Name Role Phone Jessica Santamaria MD Primary Care Provider [phone] Encounter Details Date Type Department Care Team (Late st Contact Info) Description 09/20/2023 Documentation Only [facility] [place], [address] [place] [address] [place], [place] [address] [place] [address] Social History Tobacco Use Types [...] Support [facility] [place] [address] [place] [address] Shavon Ng FNP-C [address] [place] [address] documented as of this encounter Visit Diagnoses Not on filedocumented in this encounter Care Teams Hot Dimpling Machine Operator Relationship Specialty Start Date End Date Jessica Santamaria MD [address] [place], [place] PCP - General 04/04/19 documented as of this encounter
--- OUTSIDE RECORDS SUMMARY | 2025-04-12 12:09 | XMS_ITS | Encounter Summary ---
Author Organization [facility] [place], Address [address] [place] [address] Phone Care Team Providers Care Machine Printer Hose Name Role Phone Jessica Santamaria MD Primary Care Provider [phone] Encounter Details Date Type Department Care Team (Late st Contact Info) Description 06/30/2024 Documentation Only [facility] [place], [address] [place] [address] [place], [place] [address] [place] [address] Social History Tobacco Use Types [...] Support [facility] [place] [address] [place] [address] Shavon Ng FNP-C [address] [place] [address] documented as of this encounter Visit Diagnoses Not on filedocumented in this encounter Care Teams Machine Printer Hose Relationship Specialty Start Date End Date Jessica Santamaria MD [address] [place], [place] PCP - General 04/04/19 documented as of this encounter
--- OUTSIDE RECORDS SUMMARY | 2025-04-12 12:09 | XMS_ITS | Encounter Summary ---
Author Organization [facility] Address [address] [place] [address] Phone Care Team Providers Care Cherry Dipper Name Role Phone Jessica Santamaria MD Primary Care Provider [phone] Encounter Details Date Type Department Care Team (Late Contact Info) Description 03/19/2025 Documentation Only [facility] [place], [address] [place] [address] [place], [place] [address] [place] [address] Social History Tobacco Use Types [...] Support [facility] [place] [address] [place] [address] Shavon Ng FNP-C [address] [place] [address] documented as of this encounter Visit Diagnoses Not on filedocumented in this encounter Care Teams Cherry Dipper Relationship Specialty Start Date End Date Jessica Santamaria MD [address] [place], [place] PCP - General 04/04/19 documented as of this encounter
--- OUTSIDE RECORDS SUMMARY | 2025-04-12 12:09 | XMS_ITS | Encounter Summary ---
Author Organization [facility] [place], Address [address] [place] [address] Phone Care Team Providers Care Vinyl Flooring Installer Name Role Phone Jessica Santamaria MD Primary Care Provider [phone] Encounter Details Date Type Department Care Team (Late st Contact Info) Description 06/30/2024 Documentation Only [facility] [place], [address] [place] [address] [place], [place] [address] [place] [address] Social History Tobacco Use Types [...] Support [facility] [place] [address] [place] [address] Shavon Ng FNP-C [address] [address] documented as of this encounter Visit Diagnoses Not on filedocumented in this encounter Care Teams Vinyl Flooring Installer Relationship Specialty Start Date End Date Jessica Santamaria MD [address] [place], [place] PCP - General 04/04/19 documented as of this encounter
--- OUTSIDE RECORDS SUMMARY | 2025-04-12 12:09 | XMS_ITS | Encounter Summary ---
Author Organization [facility] Address [address] [place] [address] Phone Care Team Providers Care Cycling Instructor Name Role Phone Jessica Santamaria MD Primary Care Provider Encounter Details Date Type Department Care Team (Late Contact Info) Description 01/23/2025 Documentation Only [facility] [place], [address] [place] [address] [place], [place] [address] [place] [address] Social History Tobacco Use Types [...] Support [facility] [place] [address] [place] [address] Shavon Ng FNP-C [address] [place] [address] documented as of this encounter Visit Diagnoses Not on filedocumented in this encounter Care Teams Cycling Instructor Relationship Specialty Start Date End Date Jessica Santamaria MD [address] [place], [place] PCP - General 04/04/19 documented as of this encounter
--- OUTSIDE RECORDS SUMMARY | 2025-04-12 12:09 | XMS_ITS | Encounter Summary ---
Author Organization [facility] Address [address] [place] [address] Phone Care Team Providers Care Jira Administrator Name Role Phone Jessica Santamaria MD Primary Care Provider [phone] Encounter Details Date Type Department Care Team (Late Contact Info) Description 09/27/2024 Documentation Only [facility] [place], [address] [place] [address] [place], [place] [address] [place] [address] Social History Tobacco Use Types [...] Support [facility] [place] [address] [place] [address] Shavon Ng FNP-C [address] [place] [address] documented as of this encounter Visit Diagnoses Not on filedocumented in this encounter Care Teams Jira Administrator Relationship Specialty Start Date End Date Jessica Santamaria MD [address] [place], [place] PCP - General 04/04/19 documented as of this encounter
--- OUTSIDE RECORDS SUMMARY | 2025-04-12 12:09 | XMS_ITS | Encounter Summary ---
Author Organization [facility] Address [address] [place] [address] Phone Care Team Providers Care Development Consultant Name Role Phone Jessica Santamaria MD Primary Care Provider [phone] Encounter Details Date Type Department Care Team (Late Contact Info) Description 09/18/2024 Documentation Only [facility] [place], [address] [place] [address] [place], [place] [address] [place] [address] Social History Tobacco Use Types [...] Support [facility] [place] [address] [place] [address] Shavon Ng FNP-C [address] [place] [address] documented as of this encounter Visit Diagnoses Not on filedocumented in this encounter Care Teams Development Consultant Relationship Specialty Start Date End Date Jessica Santamaria MD [address] [place], [place] PCP - General 04/04/19 documented as of this encounter
--- OUTSIDE RECORDS SUMMARY | 2025-04-12 12:09 | XMS_ITS | Encounter Summary ---
Author Organization [facility] [place], Address [address] [place] [address] Phone Care Team Providers Care Grid Caster Name Role Phone Jessica Santamaria MD Primary Care Provider [phone] Reason for Visit * Reason Comments Med Refill Encounter Details Date Type Department Care Team (Late st Contact Info) Description 06/23/2022 Refill [facility] [address] [place] [address] Rony Donato PA [address] [place] [address] [place] [address] Social History Tobacco Use Types [...] Support [facility] [address] [address] Shavon Ng FNP-C [address] [address] documented as of this encounter Visit Diagnoses Not on filedocumented in this encounter Care Teams Grid Caster Relationship Specialty Start Date End Date Jessica Santamaria MD [address] [place], [place] PCP - General 04/04/19 documented as of this encounter
--- OUTSIDE RECORDS SUMMARY | 2025-04-12 12:09 | XMS_ITS | Encounter Summary ---
Author Organization [facility] Address [address] [place] [address] Phone Care Team Providers Care Data Center Engineer Name Role Phone Jessica Santamaria MD Primary Care Provider [phone] Encounter Details Date Type Department Care Team (Late Contact Info) Description 10/05/2023 Documentation Only [facility] [place], [address] [address] [place], [place] [address] [place] [address] Social History [...] [facility] [place] [address] [address] Shavon Ng FNP-C [address] [place] [address] documented as of this encounter Visit Diagnoses Not on filedocumented in this encounter Care Teams Data Center Engineer Relationship Specialty Start Date End Date Jessica Santamaria MD [address] [place], [place] PCP - General 04/04/19 documented as of this encounter
--- OUTSIDE RECORDS SUMMARY | 2025-04-12 12:09 | XMS_ITS | Encounter Summary ---
Author Organization [facility] Address [address] [place] [address] Phone Care Team Providers Care Ic Engineer Name Role Phone Jessica Santamaria MD Primary Care Provider [phone] Encounter Details Date Type Department Care Team (Late Contact Info) Description 11/18/2023 Documentation Only [facility] [place], [address] [place] [address] [place], [place] [address] [place] [address] Social History Tobacco Use Types [...] [facility] [place] [address] [place] [address] Shavon Ng FNP-C [address] [place] [address] documented as of this encounter Visit Diagnoses Not on filedocumented in this encounter Care Teams Ic Engineer Relationship Specialty Start Date End Date Jessica Santamaria MD [address] [place], [place] PCP - General 04/04/19 documented as of this encounter
--- OUTSIDE RECORDS SUMMARY | 2025-04-12 12:09 | XMS_ITS | Encounter Summary ---
Author Organization [facility] Address [address] [place] [address] Phone Care Team Providers Care Sandwich Peddler Name Role Phone Jessica Santamaria MD Primary Care Provider [phone] Encounter Details Date Type Department Care Team (Late st Contact Info) Description 09/20/2023 Documentation Only [facility] [place], [address] [place] [place] [address] [place], [place] [address] [place] [address] Social History Tobacco Use Types [...] Support [facility] [place] [address] [place] [address] Shavon Ng FNP-C [address] [place] [address] documented as of this encounter Visit Diagnoses Not on filedocumented in this encounter Care Teams Sandwich Peddler Relationship Specialty Start Date End Date Jessica Santamaria MD [address] [place], [place] PCP - General 04/04/19 documented as of this encounter
--- OUTSIDE RECORDS SUMMARY | 2025-04-12 12:09 | XMS_ITS | Encounter Summary ---
Author Organization [facility] [place], Address [address] [place] [address] Phone Care Team Providers Care Personnel Counselor Name Role Phone Jessica Santamaria MD Primary Care Provider [phone] Reason for Visit * Reason Comments Med Refill Encounter Details Date Type Department Care Team (Late st Contact Info) Description 08/24/2022 Refill [facility] [address] [place] [address] Rony Donato PA [address] [place] [address] [place] [address] Social History Tobacco Use Types [...] Support [facility] [address] [place] [address] Shavon Ng FNP-C [address] [place] [address] documented as of this encounter Visit Diagnoses Not on filedocumented in this encounter Care Teams Personnel Counselor Relationship Specialty Start Date End Date Jessica Santamaria MD [address] [place], [place] PCP - General 04/04/19 documented as of this encounter
--- OUTSIDE RECORDS SUMMARY | 2025-04-12 12:09 | XMS_ITS | Encounter Summary ---
Author Organization [facility] Address [address] [place] [address] Phone Care Team Providers Care Information Receptionist Name Role Phone Jessica Santamaria MD Primary Care Provider [phone] Encounter Details Date Type Department Care Team (Late Contact Info) Description 02/16/2024 Documentation Only [facility] [place], [address] [place] [address] [place], [place] [address] [place] [address] Social History Tobacco Use Types [...] Support [facility] [place] [address] [place] [address] Shavon Ng FNP-C [address] [place] [address] documented as of this encounter Visit Diagnoses Not on filedocumented in this encounter Care Teams Information Receptionist Relationship Specialty Start Date End Date Jessica Santamaria MD [address] [place], [place] PCP - General 04/04/19 documented as of this encounter
--- OUTSIDE RECORDS SUMMARY | 2025-04-12 12:09 | XMS_ITS | Encounter Summary ---
Author Organization [facility] [place], Address [address] [place] [address] Phone Care Team Providers Care Bridge Club Manager Name Role Phone Jessiac Santamaria MD Primary Care Provider [phone] Reason for Visit * Reason Comments Med Refill Encounter Details Date Type Department Care Team (Late st Contact Info) Description 06/11/2021 Refill [facility] [address] [place] [address] Rony Donato PA [address] [place] [address] [place] [address] Social History Tobacco Use Types [...] Support [facility] [address] [place] [address] Shavon Ng FNP-C [address] [place] [address] documented as of this encounter Visit Diagnoses Not on filedocumented in this encounter Care Teams Bridge Club Manager Relationship Specialty Start Date End Date Jessica Santamaria MD [address] [place], [place] PCP - General 04/04/19 documented as of this encounter
--- OUTSIDE RECORDS SUMMARY | 2025-04-12 12:09 | XMS_ITS | Encounter Summary ---
Author Organization [facility] [place], Address [address] [place] [address] Phone Care Team Providers Care Airport Engineer Name Role Phone Jessica Santamaria MD Primary Care Provider [phone] Reason for Visit * Reason Comments Med Refill Encounter Details Date Type Department Care Team (Late st Contact Info) Description 06/20/2021 Refill [facility] [address] [place] [address] Rony Donato PA [address] [place] [address] [place] [address] Social History Tobacco Use Types [...] [facility] [address] [place] [address] Shavon Ng FNP-C [address] [place] [address] documented as of this encounter Visit Diagnoses Not on filedocumented in this encounter Care Teams Airport Engineer Relationship Specialty Start Date End Date Jessica Santamaria MD [address] [place], [place] PCP - General 04/04/19 documented as of this encounter
--- OUTSIDE RECORDS SUMMARY | 2025-04-12 12:09 | XMS_ITS | Clinical Summary ---
Author Organization [facility] [place], Address [address] [place] [address] [place] [address] Phone Care Team Providers Care Mechanical Inspector Name Role Phone Jessica Santamaria MD Primary Care Provider [phone] Allergies Active Allergy Reactions Criticality Noted Date [...] (one) time each day 5 Active Pancrelipase, Qfz-Dlec-Vndp, (CREON PO) Take by mouth in the [...] Support [facility] [place] [address] [place] [address] Shavon Ng FNP-C Stage 3a chronic kidney disease (HCC) (Primary Dx); History of renal transplant; History of immunosuppressive therapy 03/27/2025 Orders Only [facility] [address] [place] [place] [address] Hiwot Smith [place] Stage 3b chronic kidney [...] Only [facility] [address] [place] [address] Hiwot Smith [place] 03/12/2025 Documentation Only [facility] [address] [place] [place] [address] Hiwot Smith [place] 02/14/2025 Orders Only [facility] Of [address] [place] [address] Zoe Vásquez, RN History of renal transplant (Primary Dx); History of immunosuppressive therapy; Stage 3b chronic kidney disease (HCC) 02/14/2025 Telephone [facility] [address] [place] [address] Zoe Vásquez, ANABELL 02/09/2025 Telephone [facility] Of [address] [place] [address] Zoe Vásquez RN 02/08/2025 4:15 PM EDT Clinical Support [facility] [address] [place] [address] Shavon Ng FNP-C Essential hypertension (Primary Dx); History of renal transplant; History of immunosuppressive therapy; Stage 3a chronic kidney disease (HCC) 02/01/2025 Orders Only [facility] Of [address] [place] [address] Hiwot Smith [place] Kidney replaced by transplant [...] Visit [facility] [address] [place] [address] [place] [address] Damian Norris MD 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) 01/23/2025 Documentation Only [facility] Of [address] [place] [address] Hiwot Smith MA 01/16/2025 Telephone [facility] Of [address] [place] [address] Antonia Jackson 01/15/2025 10:00 AM EDT Procedure visit [facility] [address] [place] [address] Tereso Arrieta MD End stage renal disease (HCC) (Primary Dx); Other mechanical complication of surgically created arteriovenous fistula, initial encounter (HCC) 01/15/2025 Telephone [facility] [address] [place] [address] Katharina Butt 01/12/2025 Telephone [facility] [address] [place] [address] Antonia Jackson from Last 3 Months Immunizations [...] Support [facility] [place] [address] [place] [address] Shavon Ng, CORE CHECKER-C [address] [place] [address] Health Maintenance Due Date Last Done Comments [...] AM EDT) Hemoglobin A1C 6.4(H) (4.0-5.6) % [facility] Comment: MONITORING: In known diabetic patients, hemoglobin A1c targets should be discussed with health care provider. DIAGNOSTIC USE: The [place] Diabetes Association (ADA) and the World Health [...] Supplement 1 Testing performed or reported by [facility], a Service of [facility], [address] [place] [address] Tate Pham MD, Concrete Finisher [facility]# [id number] Blood specimen (specimen) Venous blood / Unknown 11/13/2022 9:47 AM EDT 11/13/2022 9:48 AM EDT us Rony ME[facility] BLOOD ORDERABLES Final Re sult [facility] from Last 3 Months or Most Recently Relevant to Health Maintenance Insurance [address] [place] [id number] [place] [address] Medicaid Care Teams Mechanical Inspector Relationship Specialty Start Date End Date Jessica Santamaria MD [address] [place] [address] PCP - General 04/04/19
--- OUTSIDE RECORDS SUMMARY | 2025-04-12 12:09 | XMS_ITS | Encounter Summary ---
Author Organization [facility] Address [address] [address] Phone Care Team Providers Care Natural Resource Officer Name Role Phone Jessica Santamaria MD Primary Care Provider [phone] Reason for Visit * Reason Comments Med Refill Encounter Details Date Type Department Care Team (Late st Contact Info) Description 04/12/2023 Refill [facility] [place], [address] [place] [address] Alvaro Stratton MD [address] [place] [address] Social History Tobacco Use Types [...] Support [facility] [place] [address] [place] [address] Shavon Ng FNP-C [address] [facility] [address] documented as of this encounter Visit Diagnoses Not on filedocumented in this encounter Care Teams Natural Resource Officer Relationship Specialty Start Date End Date Jessica Santamaria MD [address] [place], [place] PCP - General 04/04/19 documented as of this encounter
--- OUTSIDE RECORDS SUMMARY | 2025-04-12 12:09 | XMS_ITS | Encounter Summary ---
Author Organization [facility] Address [address] [place] [address] Phone Care Team Providers Care Torpedo Shooter Name Role Phone Jessica Santamaria MD Primary Care Provider [phone] Encounter Details Date Type Department Care Team (Late st Contact Info) Description 09/15/2024 Telephone [facility] [address] [place] [address] Karyn Ross Social History Tobacco [...] tender and painful. Please return the call [phone] - thank you documented in this encounter Plan of Treatment Upcoming Encounters Date Type Department Care Team (Late st Contact Info) Description 06/14/2025 1:00 PM EST Clinical Support [facility] [address] [place] [address] Shavon Ng, HAI-C [address] [place] [address] documented as of this encounter Visit Diagnoses Not on filedocumented in this encounter Care Teams Torpedo Shooter Relationship Specialty Start Date End Date Jessica Santamaria MD [address] [place] [address] PCP - General 04/04/19 documented as of this encounter
--- OUTSIDE RECORDS SUMMARY | 2025-04-12 12:09 | XMS_ITS | Encounter Summary ---
Author Organization [facility] Address [address] [place] [address] Phone Care Team Providers Care Supplier Quality Specialist Name Role Phone Jessica Santamaria MD Primary Care Provider [phone] Encounter Details Date Type Department Care Team (Late Contact Info) Description 03/12/2025 Documentation Only [facility] [place], [address] [place] [address] [place], [place] [address] [place] [address] Social History Tobacco Use Types [...] [facility] [place] [address] [place] [address] Shavon Ng FNP-C [address] [place] [address] documented as of this encounter Visit Diagnoses Not on filedocumented in this encounter Care Teams Supplier Quality Specialist Relationship Specialty Start Date End Date Jessica Santamaria MD [address] [place], [place] PCP - General 04/04/19 documented as of this encounter
--- OUTSIDE RECORDS SUMMARY | 2025-04-12 12:09 | XMS_ITS | Encounter Summary ---
Author Organization [facility] [place], Address [address] [place] [address] Phone Care Team Providers Care Assistance Specialist Name Role Phone Jessica Santamaria MD Primary Care Provider [phone] Reason for Visit * Reason Comments Med Refill Encounter Details Date Type Department Care Team (Late st Contact Info) Description 07/20/2023 Refill [facility] [address] [place] [address] Rony Donato PA [address] [place] [address] [place] [address] Social History Tobacco Use Types [...] [facility] [address] [place] [address] Shavon Ng FNP-C [address] [place] [address] documented as of this encounter Visit Diagnoses Not on filedocumented in this encounter Care Teams Assistance Specialist Relationship Specialty Start Date End Date Jessica Santamaria MD [address] [place], [place] PCP - General 04/04/19 documented as of this encounter
--- OUTSIDE RECORDS SUMMARY | 2025-04-12 12:09 | XMS_ITS | Encounter Summary ---
Author Organization [facility] Address [address] [place] [address] Phone Care Team Providers Care Navy Diver Name Role Phone Jessica Santamaria MD Primary Care Provider [phone] Encounter Details Date Type Department Care Team (Late st Contact Info) Description 04/28/2024 Documentation Only [facility] [place], [address] [place] [address] [place], [place] [address] [place] [address] Social History Tobacco Use Types [...] Support [facility] [place] [address] [place] [address] Shavon Ng FNP-Tanesha [address] [place] [address] documented as of this encounter Visit Diagnoses Not on filedocumented in this encounter Care Teams Navy Diver Relationship Specialty Start Date End Date Jessica Santamaria MD [address] [place], [place] PCP - General 04/04/19 documented as of this encounter
== END 2025-04-12 10:46 | disposition home or self-care (01) ==
LOC: HO.HMCH 10:07
PROVIDERS: PCP Internal Medicine; Visit Provider Internal Medicine
DX: Z00.00 Encounter for general adult medical examination without abnormal findings (principal); F33.0 Major depressive disorder, recurrent, mild; E11.65 Type 2 diabetes mellitus with hyperglycemia; N18.32 Chronic kidney disease, stage 3b; Z23 Encounter for immunization

== ENCOUNTER → 2025-04-12 10:06 | Outpatient (BNVA) | payer OTHER, SELFPAY | PROVIDERS: PCP Internal Medicine; Visit Provider Internal Medicine | DX: Z00.00 Encounter for general adult medical examination without abnormal findings (principal); I10 Essential (primary) hypertension; F33.0 Major depressive disorder, recurrent, mild; E11.65 Type 2 diabetes mellitus with hyperglycemia; N18.32 Chronic kidney disease, stage 3b; Z23 Encounter for immunization; Z79.899 Other long term (current) drug therapy | CPT/HCPCS: 90471; 90656; 96127; 99396 ==

== ENCOUNTER 2025-04-16 11:56 | Outpatient (AMB) | payer OTHER, SELFPAY ==
--- NOTE | 2025-04-16 11:58 | MHC.OFFVIS ---
Vital Signs 04/16/25 11:59 Height 5 ft 1 in Weight 144 lb BMI 27.2 BP 98/49 L Blood Pressure Location Lt brachial Position Sitting Pulse 72 Intake Visit Reasons: F/u constipation Intake Note: Patient follow up for constipation. Patient cc: vomiting with abdominal pain/discomfort with burning sensation and chronic constipation wth some bloody stool on and off. Patient needed refill on Amitiza 24 mcg to be sended to pharmacy. 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 manager used RECAP: Had been seeing Kaye Lambert issues: 1/ IBS-C 2/ GERD 3/constipation--tried linaclotide, amitiza, 2/2 to slow transit, opiates, CCB, and enlarged kidneys, possible pelvic flood dysfucntion colonoscopy 2017---diverticulosis, no other lesions 4/ suspected pancreas lesions I had seen her for left sided abdominal pain and ongoing chronic constipation referred to [facility] for ARM consideration given to movantik on days she is taking opiates she has to manually disimpact, can be painful to pass she is on oxycodone for back pain, takes 2-3 times/week the abx I gave her did reduce her bloating and gas US 12/18--polycystic kidneys, hepatic cysts, ovarian cyst 4.3 cm EGD for epigastric pain: 12/2021 gastritis duodenitis esophagitis path: pos H pylori Colonoscopy: 08/2022--- TA, random colo bx neg h pylori breath test was neg on f/u EGD/colonoscopy: 02/22 Endoscopy Findings: lax LES schatzki ring hiatal hernia erosive gastritis duodenitis Colonoscopy Findings: internal hemorrhoids Path: duodenitis and colitis INTERIM: she has bouts of vomiting, giving her poor appetite having regurgitation she had some blood in stool, but constipated and ran out of amitiza there was confusion regarding timing of movantik so I reviewed this with her constipation not that bad, denies abdominal pain seh had one day of n./v improved she is worried about her bowle habits still having blood in stool occasionally EXAM: GENERAL: The patient is well developed and nontoxic. VITAL SIGNS:see workflow HEENT: Nonicteric sclerae, PERRLA, EOMI. Oropharynx clear. Moist mucous membranes. Conjunctivae appear well perfused. No thyroid mass. CHEST: Chest wall is nontender. HEART: Regular rate and rhythm without murmurs. LUNGS: Clear to auscultation bilaterally. ABDOMEN: Soft, positive bowel sounds, mild tender epigastrium and around transplanted kidney, kidney palpable, no organomegaly.no flank tenderness SKIN: No rash, no excessive bruising, petechiae, or purpura. NEUROLOGIC: Cranial nerves II-XII intact without motor/sensory deficit. a/P; 1/ constipation- suspected opioid induced constipation--also maybe SE of her other meds farhana CCB and oxycodone , did well with movantik, insurance issues now 2/ GERD< as above maybe due to meds and hiatal hernia PLAN: 1/ retry movantik--if not apporved then amitiza 24 mcg 2/ add pantoprazole 40 mg daily, if ongoing sx then refer Dr Sandoval for hernia repair, in meantime get Ba swallow [facility] Medical History Left foot pain Nondisplaced fracture of fifth left metatarsal bone Injury of left foot Nondisplaced fracture of fifth metatarsal bone, left foot, initial encounter for closed fracture Nondisplaced fracture of base of fifth metacarpal bone Hx of sciatica CVA (cerebral vascular accident) Malnutrition Diabetes mellitus Right ankle pain Left ankle pain Fatigue Hair loss Back pain Pancreatic lesion Pneumonia due to COVID-19 virus Essential hypertension Surgical History History of esophagogastroduodenoscopy (EGD) Hx of colonoscopy Kidney transplant recipient AV fistula Kidney transplant status History of tubal ligation History of foot surgery History of lipoma History of benign breast tumor Family History Father CVD (cardiovascular disease) Prostate cancer Mother No problems noted. Social History Household Members: Children Housing: Apartment Alcohol intake: never Patient Tobacco Use Status: Former Tobacco user Tobacco use type: Cigarette e-Cigarette/Vaping Use: Never Used Second Hand Smoke Exposure: No service: No Current occupational status: unemployed Cognitive needs: No Hearing needs: No Vision needs: Yes Physical Exam Vital Signs: Last Vital Signs Pulse 72 04/16/25 11:59 BP 98/49 L 04/16/25 11:59 BMI result Body Mass Index 27.2 Assessment & Plan Assessment & Plan (1) GERD (gastroesophageal reflux disease): Code(s): K21.9 - Gastro-esophageal reflux disease without esophagitis Category: Medical Plan: as above Orders: Orders [place] barium swallow Today K21.9 - Gastro-esophageal reflux disease without esophagitis Medications: New lubiprostone (Amitiza) 24 mcg PO DAILY 60 caps 1RF pantoprazole 40 mg PO DAILY 60 tabs 1RF Refilled naloxegol (Movantik) must be taken on empty stomach; no food 1 hr after or 2-3 hrs before dose 25 mg PO QAM 30 tabs 2RF Coding Level of Care Code Est Pt Level 4 (46756) Diagnoses GERD (gastroesophageal reflux disease) K21.9
[2025-04-16 11:59] VITALS: BP 98/49; PULSE 72; BMI 27.2
== END 2025-04-16 13:12 | disposition home or self-care (01) ==
LOC: HO.HGI 11:57
PROVIDERS: PCP Internal Medicine; Visit Provider Internal Medicine Gastroenterology
DX: K21.9 Gastro-esophageal reflux disease without esophagitis (principal)
CPT/HCPCS: 99214

== ENCOUNTER → 2025-04-16 11:56 | Outpatient (BNVA) | payer OTHER, SELFPAY | PROVIDERS: PCP Internal Medicine; Visit Provider Internal Medicine Gastroenterology | DX: K21.9 Gastro-esophageal reflux disease without esophagitis (principal) | CPT/HCPCS: 99212 ==

== ENCOUNTER 2025-04-24 13:48 | Outpatient (REF) | payer OTHER, SELFPAY ==
--- NOTE | ~2025-04-24 | US_ITS ---
EXAMINATION: US THYROID CLINICAL INFORMATION: Nontoxic goiter, unspecified. COMPARISON: None available. TECHNIQUE: Linear transducer grayscale and color Doppler examination with attention to the region of the thyroid. FINDINGS: SIZE: Measurements of the thyroid lobes and nodules are given in sagittal, anteroposterior and transverse dimensions respectively. Right Thyroid Lobe: 4.3 x 1.6 x 1.4 cm, volume 5.0 mL. Parenchyma: The gland echotexture is homogeneous. Thyroid vascularity is normal. Left Thyroid Lobe: 2.6 x 0.9 x 1.1 cm, volume 1.3 mL. Parenchyma: The gland echotexture is homogeneous. Thyroid vascularity is normal. Isthmus: 0.2 cm in maximum AP dimension. There are no thyroid nodules present. NODES: No lymphadenopathy is seen in the tissue surrounding the thyroid gland. US/US thyroid IMPRESSION: Normal thyroid ultrasound. Electronically signed by: Mack Cooper MD 04/24/2025 02:51 PM [facility]
--- OUTSIDE RECORDS SUMMARY | 2025-04-24 17:39 | XMS_ITS | Encounter Summary ---
Author Organization [facility] [place], Address [address] [address] Phone Care Team Providers Care Software Quality Analyst Name Role Phone Jessica Santamaria MD Primary Care Provider [phone] Reason for Visit * Reason Comments Med Refill Encounter Details Date Type Department Care Team (Late st Contact Info) Description 07/13/2022 Refill [facility] [address] [place] [address] Alvaro Stratton MD [address] [place] [address] [place] [address] Social History Tobacco Use Types Packs/Day Years [...] Support [facility] [place] [address] [place] [id number] Shavon Ng HIM MANAGER-C [address] [place] [address] documented as of this encounter Visit Diagnoses Not on filedocumented in this encounter Care Teams Software Quality Analyst Relationship Specialty Start Date End Date Jessica Santamaria MD [address] [place], [place] PCP - General 04/04/19 documented as of this encounter
--- OUTSIDE RECORDS SUMMARY | 2025-04-24 17:39 | XMS_ITS | Encounter Summary ---
Author Organization [facility] Address [address] [place] [address] Phone Care Team Providers Care Adjuster Electrical Contacts Name Role Phone Jessica Santamaria MD Primary Care Provider [phone] Encounter Details Date Type Department Care Team (Late st Contact Info) Description 09/15/2024 Telephone [facility] [address] [address] Karyn Ross Social History Tobacco [...] tender and painful. Please return the call [phone] - thank you documented in this encounter Plan of Treatment Upcoming Encounters Date Type Department Care Team (Late st Contact Info) Description 06/14/2025 1:00 PM EST Clinical Support [facility] [address] [place] [address] Shavon Ng, HAI-C [address] [place] [address] documented as of this encounter Visit Diagnoses Not on filedocumented in this encounter Care Teams Adjuster Electrical Contacts Relationship Specialty Start Date End Date Jessica Santamaria MD [address] [place] [address] PCP - General 04/04/19 documented as of this encounter
--- OUTSIDE RECORDS SUMMARY | 2025-04-24 17:39 | XMS_ITS | Encounter Summary ---
Author Organization [facility] [place], Address [address] [place] [address] Phone Care Team Providers Care Mattress Inspector Name Role Phone Jessica Santamaria MD Primary Care Provider [phone] Reason for Visit * Reason Comments Med Refill Encounter Details Date Type Department Care Team (Late st Contact Info) Description 08/24/2022 Refill [facility] [address] [place] [address] Rony Donato PA [address] [place] [address] [place] [address] Social History Tobacco Use Types [...] Services [facility] [address] [place] [address] Shavon Ng FNP-C [address] [place] [address] documented as of this encounter Visit Diagnoses Not on filedocumented in this encounter Care Teams Mattress Inspector Relationship Specialty Start Date End Date Jessica Santamaria MD [address] [place], [place] PCP - General 04/04/19 documented as of this encounter
--- OUTSIDE RECORDS SUMMARY | 2025-04-24 17:39 | XMS_ITS | Encounter Summary ---
Author Organization [facility] [place], Address [address] [place] [address] Phone Care Team Providers Care Cannery Tender Engineer Name Role Phone Jessica Santamaria MD Primary Care Provider [phone] Reason for Visit * Reason Comments Med Refill Encounter Details Date Type Department Care Team (Late st Contact Info) Description 06/23/2022 Refill [facility] [address] [place] [address] Rony Donato PA [address] [place] [address] [place] [address] Social History Tobacco Use Types [...] Clinical Support [facility] [address] [place] [address] Shavon Ng FNP-C [address] [place] [address] documented as of this encounter Visit Diagnoses Not on filedocumented in this encounter Care Teams Cannery Tender Engineer Relationship Specialty Start Date End Date Jessica Santamaria MD [address] [place], [place] PCP - General 04/04/19 documented as of this encounter
--- OUTSIDE RECORDS SUMMARY | 2025-04-24 17:39 | XMS_ITS | Encounter Summary ---
Author Organization [facility] Address [address] [place] [address] Phone Care Team Providers Care Stamping Die Maker Bench Name Role Phone Jessica Santamaria MD Primary Care Provider [phone] Encounter Details Date Type Department Care Team (Late Contact Info) Description 01/23/2025 Documentation Only [facility] [place], [address] [place] [address] [place], [place] [address] [place] [address] Social History Tobacco Use Types [...] Support [facility] [place] [address] [place] [place] [address] Shavon Ng FNP-C [address] [place] [address] documented as of this encounter Visit Diagnoses Not on filedocumented in this encounter Care Teams Stamping Die Maker Bench Relationship Specialty Start Date End Date Jessica Santamaria MD [address] [place], [place] PCP - General 04/04/19 documented as of this encounter
--- OUTSIDE RECORDS SUMMARY | 2025-04-24 17:39 | XMS_ITS | Encounter Summary ---
Author Organization [facility] Address [address] [place] [address] Phone Care Team Providers Care Clock Smith Name Role Phone Jessica Santamaria MD Primary Care Provider [phone] Encounter Details Date Type Department Care Team (Late Contact Info) Description 08/20/2023 Documentation Only [facility] [place], [address] [place] [address] [place], [place] [address] [place] [address] Social History Tobacco Use Types [...] Support [facility] [place] [address] [place] [address] Shavon Ng FNP-C [address] [place] [address] documented as of this encounter Visit Diagnoses Not on filedocumented in this encounter Care Teams Clock Smith Relationship Specialty Start Date End Date eJssica Santamaria MD [address] [place], [place] PCP - General 04/04/19 documented as of this encounter
--- OUTSIDE RECORDS SUMMARY | 2025-04-24 17:39 | XMS_ITS | Encounter Summary ---
Author Organization [facility] Address [address] [place] [address] Phone Care Team Providers Care Strategy Associate Name Role Phone Jessica Santamaria MD Primary Care Provider [phone] Encounter Details Date Type Department Care Team (Late st Contact Info) Description 04/28/2024 Documentation Only [facility] [place], [address] [place] [address] [place], [place] [address] [place] [address] Social History Tobacco Use [...] Support [facility] [place] [address] [place] [address] Shavon Ng FNP-Tanesha [address] [place] [address] documented as of this encounter Visit Diagnoses Not on filedocumented in this encounter Care Teams Strategy Associate Relationship Specialty Start Date End Date Jessica Santamaria MD [address] [place], [place] PCP - General 04/04/19 documented as of this encounter
--- OUTSIDE RECORDS SUMMARY | 2025-04-24 17:39 | XMS_ITS | Encounter Summary ---
Author Organization [facility] Address [address] [place] [address] Phone Care Team Providers Care Inspector Scales Name Role Phone Jessica Santamaria MD Primary Care Provider [phone] Encounter Details Date Type Department Care Team (Late st Contact Info) Description 09/20/2023 Documentation Only [facility] [place], [address] [place] [address] [place], [place] [address] [place] [address] Social History Tobacco Use Types [...] Support [facility] [place] [address] [place] [address] Shavon Ng FNP-C [address] [place] [address] documented as of this encounter Visit Diagnoses Not on filedocumented in this encounter Care Teams Inspector Scales Relationship Specialty Start Date End Date Jessica Santamaria MD [address] [place], [place] PCP - General 04/04/19 documented as of this encounter
--- OUTSIDE RECORDS SUMMARY | 2025-04-24 17:39 | XMS_ITS | Clinical Summary ---
Author Organization [facility] [place], Address [address] [place] [address] [place] [address] Phone Care Team Providers Care Suture Gauger Name Role Phone Jessica Santamaria MD Primary Care Provider [phone] Allergies Active Allergy Reactions Criticality Noted Date [...] (one) time each day 5 Active Pancrelipase, Xmx-Rfam-Wlrd, (CREON PO) Take by mouth in the [...] Support [facility] [place] [address] [place] [address] Shavon Ng FNP-C Stage 3a chronic kidney disease (HCC) (Primary Dx); History of renal transplant; History of immunosuppressive therapy 03/27/2025 Orders Only [facility] [address] [place] [place] [address] Hiwot Smith [place] Stage 3b chronic kidney [...] [facility] [address] [place] [address] Hiwot Smith [place] 03/12/2025 Documentation Only [facility] [address] [place] [address] Hiwot Smith [place] 02/14/2025 Orders Only [facility] [address] [place] [address] Zoe Vásquez, RN History of renal transplant (Primary Dx); History of immunosuppressive therapy; Stage 3b chronic kidney disease (HCC) 02/14/2025 Telephone [facility] [address] [place] [address] Zoe Vásquez, ANABELL 02/09/2025 Telephone [facility] Of [address] [place] [address] Zoe Vásquez RN 02/08/2025 4:15 PM EDT Clinical Support [facility] [address] [place] [address] Shavon Ng FNP-C Essential hypertension (Primary Dx); History of renal transplant; History of immunosuppressive therapy; Stage 3a chronic kidney disease (HCC) 02/01/2025 Orders Only [facility] [address] [place] [address] Hiwot Smith [place] Kidney replaced by transplant [...] Office Visit [facility] [address] [place] [address] [place] [address] Damian Norris MD 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 DIAGNOSTIC USE: The [place] Diabetes Association (ADA) and the World Health [...] Supplement 1 Testing performed or reported by [facility], a Service of [facility], [address] [place] [address] Tate Pham MD, Work Force Advisor [facility]# [id number] Blood specimen (specimen) Venous blood / Unknown 11/13/2022 9:47 AM EDT 11/13/2022 9:48 AM EDT us Rony [facility] BLOOD ORDERABLES Final Re sult [facility] from Last 3 Months or Most Recently Relevant to Health Maintenance Insurance [facility] Medicaid Care Teams Suture Gauger Relationship Specialty Start Date End Date Jessica Santamaria MD [address] [place], [place] PCP - General 04/04/19
--- OUTSIDE RECORDS SUMMARY | 2025-04-24 17:39 | XMS_ITS | Encounter Summary ---
Author Organization [facility] [place], Address [address] [place] [address] Phone Care Team Providers Care Autoclave Operator Name Role Phone Jessica Santamaria MD Primary Care Provider [phone] Reason for Visit * Reason Comments Med Refill Encounter Details Date Type Department Care Team (Late st Contact Info) Description 07/20/2023 Refill [facility] [address] [place] [address] Rony Donato PA [address] [place] [address] [place] [address] Social History Tobacco Use Types [...] Services [facility] [address] [place] [address] Shavon Ng FNP-C [address] [place] [address] documented as of this encounter Visit Diagnoses Not on filedocumented in this encounter Care Teams Autoclave Operator Relationship Specialty Start Date End Date Jessica Santamaria MD [address], [place] PCP - General 04/04/19 documented as of this encounter
--- OUTSIDE RECORDS SUMMARY | 2025-04-24 17:39 | XMS_ITS | Encounter Summary ---
Author Organization [facility] Address [address] [place] [address] Phone Care Team Providers Care Ceramic Restorer Name Role Phone Jessica Santamaria MD Primary Care Provider [phone] Encounter Details Date Type Department Care Team (Late Contact Info) Description 09/27/2024 Documentation Only [facility] [place], [address] [place] [address] [place], [place] [address] [place] [address] Social History Tobacco Use Types [...] Support [facility] [place] [address] [place] [address] Shavon Ng FNP-C [address] [place] [address] documented as of this encounter Visit Diagnoses Not on filedocumented in this encounter Care Teams Ceramic Restorer Relationship Specialty Start Date End Date Jessica Santamaria MD [address] [place], [place] PCP - General 04/04/19 documented as of this encounter
--- OUTSIDE RECORDS SUMMARY | 2025-04-24 17:39 | XMS_ITS | Encounter Summary ---
Author Organization [facility] Address [address] [place] [address] Phone Care Team Providers Care Transition Specialist Name Role Phone Jessica Santamaria MD Primary Care Provider [phone] Encounter Details Date Type Department Care Team (Late Contact Info) Description 02/16/2024 Documentation Only [facility] [place], [address] [address] [place], [place] [address] [place] [address] Social History Tobacco Use Types [...] Support [facility] [place] [address] [address] Shavon Ng FNP-C [address] [address] documented as of this encounter Visit Diagnoses Not on filedocumented in this encounter Care Teams Transition Specialist Relationship Specialty Start Date End Date Jessica Santamaria MD [address] [place], [place] PCP - General 04/04/19 documented as of this encounter
--- OUTSIDE RECORDS SUMMARY | 2025-04-24 17:39 | XMS_ITS | Encounter Summary ---
Author Organization [facility] [place], Address [address] [place] [address] Phone Care Team Providers Care Welt Edge Rounder Name Role Phone Jessica Santamaria MD Primary Care Provider [phone] Reason for Visit * Reason Comments Med Refill Encounter Details Date Type Department Care Team (Late st Contact Info) Description 06/20/2021 Refill [facility] [address] [place] [address] Rony Donato PA [address] [place] [address] [place] [address] Social History Tobacco Use [...] [facility] [address] [place] [address] Shavon Ng FNP-C [address] [address] documented as of this encounter Visit Diagnoses Not on filedocumented in this encounter Care Teams Welt Edge Rounder Relationship Specialty Start Date End Date Jessica Santamaria MD [address] [place], [place] PCP - General 04/04/19 documented as of this encounter
--- OUTSIDE RECORDS SUMMARY | 2025-04-24 17:39 | XMS_ITS | Encounter Summary ---
Author Organization [facility] Address [address] [place] [address] Phone Care Team Providers Care Batch Blender Name Role Phone Jessica Santamaria MD Primary Care Provider [phone] Encounter Details Date Type Department Care Team (Late Contact Info) Description 03/19/2025 Documentation Only [facility] [place], [address] [place] [address] [place], [place] [address] [place] [address] Social History Tobacco Use Types [...] Support [facility] [place] [address] [place] [address] Shavon Ng FNP-C [address] [place] [address] documented as of this encounter Visit Diagnoses Not on filedocumented in this encounter Care Teams Batch Blender Relationship Specialty Start Date End Date Jessica Santamaria MD [address] [place], [place] PCP - General 04/04/19 documented as of this encounter
--- OUTSIDE RECORDS SUMMARY | 2025-04-24 17:39 | XMS_ITS | Encounter Summary ---
Author Organization [facility] Address [address] [place] [address] Phone Care Team Providers Care Bread Distributor Name Role Phone Jessica Santamaria MD Primary Care Provider [phone] Encounter Details Date Type Department Care Team (Late st Contact Info) Description 09/20/2023 Documentation Only [facility] [place], [address] [place] [address] [place], [place] [address] [place] [address] Social History Tobacco Use Types [...] Support [facility] [place] [address] [place] [address] Shavon Ng FNP-C [address] [place] [address] documented as of this encounter Visit Diagnoses Not on filedocumented in this encounter Care Teams Bread Distributor Relationship Specialty Start Date End Date Jessica Santamaria MD [address] [place], [place] PCP - General 04/04/19 documented as of this encounter
--- OUTSIDE RECORDS SUMMARY | 2025-04-24 17:39 | XMS_ITS | Encounter Summary ---
Author Organization [facility] Address [address] [place] [address] Phone Care Team Providers Care Roller Coaster Designer Name Role Phone Jessica Santamaria MD Primary Care Provider [phone] Encounter Details Date Type Department Care Team (Late Contact Info) Description 10/05/2023 Documentation Only [facility] [place], [address] [address] [place], [place] [address] [place] [address] Social History Tobacco Use [...] Support [facility] [place] [address] [place] [address] Shavon Ng FNP-C [address] [place] [address] documented as of this encounter Visit Diagnoses Not on filedocumented in this encounter Care Teams Roller Coaster Designer Relationship Specialty Start Date End Date Jessica Santamaria MD [address] [place], [place] PCP - General 04/04/19 documented as of this encounter
--- OUTSIDE RECORDS SUMMARY | 2025-04-24 17:39 | XMS_ITS | Encounter Summary ---
Author Organization [facility] Address [address] [place] [address] Phone Care Team Providers Care Client Development Director Name Role Phone Jessica Santamaria MD Primary Care Provider [phone] Encounter Details Date Type Department Care Team (Late Contact Info) Description 11/18/2023 Documentation Only [facility] [place], [address] [place] [address] [place], [place] [address] [place] [address] Social History Tobacco Use [...] Support [facility] [place] [address] [place] [address] Shavon Ng FNP-C [address] [place] [address] documented as of this encounter Visit Diagnoses Not on filedocumented in this encounter Care Teams Client Development Director Relationship Specialty Start Date End Date Jessica Santamaria MD [address] [place], [place] PCP - General 04/04/19 documented as of this encounter
--- OUTSIDE RECORDS SUMMARY | 2025-04-24 17:39 | XMS_ITS | Encounter Summary ---
Author Organization [facility] Address [address] [address] Phone Care Team Providers Care Office Equipment Technician Name Role Phone Jessica Santamaria MD Primary Care Provider [phone] Reason for Visit * Reason Comments Med Refill Encounter Details Date Type Department Care Team (Late st Contact Info) Description 04/12/2023 Refill [facility] [place], [address] [place] [address] Alvaro Stratton MD [address] [place] [address] Social History Tobacco Use Types [...] Support [facility] [place] [address] [address] Shavon Ng FNP-C [address] [place] [address] documented as of this encounter Visit Diagnoses Not on filedocumented in this encounter Care Teams Office Equipment Technician Relationship Specialty Start Date End Date Jessica Santamaria MD [address] [place], [place] PCP - General 04/04/19 documented as of this encounter
--- OUTSIDE RECORDS SUMMARY | 2025-04-24 17:39 | XMS_ITS | Encounter Summary ---
Author Organization [facility] Address [address] [place] [address] Phone Care Team Providers Care Manufacturing Specialist Name Role Phone Jessica Santamaria MD Primary Care Provider [phone] Encounter Details Date Type Department Care Team (Late Contact Info) Description 09/18/2024 Documentation Only [facility] [place], [address] [place] [address] [place], [place] [address] [place] [address] Social [...] [facility] [place] [address] [place] [address] Shavon Ng FNP-C [address] [place] [address] documented as of this encounter Visit Diagnoses Not on filedocumented in this encounter Care Teams Manufacturing Specialist Relationship Specialty Start Date End Date Jessica Santamaria MD [address] [place], [place] PCP - General 04/04/19 documented as of this encounter
--- OUTSIDE RECORDS SUMMARY | 2025-04-24 17:39 | XMS_ITS | Encounter Summary ---
Author Organization [facility] [place], Address [address] [place] [address] Phone Care Team Providers Care Instructor Apparel Manufacture Name Role Phone Jessica Santamaria MD Primary Care Provider [phone] Encounter Details Date Type Department Care Team (Late st Contact Info) Description 06/30/2024 Documentation Only [facility] [place], [address] [place] [address] [place], [place] [address] [place] [address] Social History Tobacco Use Types [...] Support [facility] [place] [address] [place] [address] Shavon Ng FNP-C [address] [place] [address] documented as of this encounter Visit Diagnoses Not on filedocumented in this encounter Care Teams Instructor Apparel Manufacture Relationship Specialty Start Date End Date Jessica Santamaria MD [address] [place], [place] PCP - General 04/04/19 documented as of this encounter
--- OUTSIDE RECORDS SUMMARY | 2025-04-24 17:39 | XMS_ITS | Encounter Summary ---
Author Organization [facility] [place], Address [address] [place] [address] Phone Care Team Providers Care Shotweld Operator Name Role Phone Jessica Santamaria MD Primary Care Provider [phone] Reason for Visit * Reason Comments Med Refill Encounter Details Date Type Department Care Team (Late st Contact Info) Description 06/11/2021 Refill [facility] [address] [place] [address] Rnoy Donato PA [address] [place] [address] [place] [address] Social History Tobacco Use Types [...] & Transplant Services [facility] [address] [place] [address] Shavon Ng FNP-C [address] [place] [address] documented as of this encounter Visit Diagnoses Not on filedocumented in this encounter Care Teams Shotweld Operator Relationship Specialty Start Date End Date Jessica Santamaria MD [address] [place], [place] PCP - General 04/04/19 documented as of this encounter
--- OUTSIDE RECORDS SUMMARY | 2025-04-24 17:39 | XMS_ITS | Encounter Summary ---
Author Organization [facility] Address [address] [place] [address] Phone Care Team Providers Care Education Consultant Name Role Phone Jessica Santamaria MD Primary Care Provider [phone] Encounter Details Date Type Department Care Team (Late Contact Info) Description 09/28/2023 Documentation Only [facility] [place], [address] [place] [address] [place], [place] [address] [place] [address] Social History Tobacco Use Types [...] Support [facility] [place] [address] [place] [address] Shavon Ng FNP-C [address] [place] [address] documented as of this encounter Visit Diagnoses Not on filedocumented in this encounter Care Teams Education Consultant Relationship Specialty Start Date End Date Jessica Santamaria MD [address] [place], [place] PCP - General 04/04/19 documented as of this encounter
--- OUTSIDE RECORDS SUMMARY | 2025-04-24 17:39 | XMS_ITS | Encounter Summary ---
Author Organization [facility] Address [address] [place] [address] Phone Care Team Providers Care Information Technology Professor Name Role Phone Jessica Santamaria MD Primary Care Provider [phone] Encounter Details Date Type Department Care Team (Late Contact Info) Description 03/12/2025 Documentation Only [facility] [place], [address] [place] [address] [place], [place] [address] [place] [address] Social History Tobacco Use Types [...] Support [facility] [place] [address] [place] [address] Shavon Ng FNP-C [address] [place] [address] documented as of this encounter Visit Diagnoses Not on filedocumented in this encounter Care Teams Information Technology Professor Relationship Specialty Start Date End Date Jessica Santamaria MD [address] [place], [place] PCP - General 04/04/19 documented as of this encounter
--- OUTSIDE RECORDS SUMMARY | 2025-04-24 17:39 | XMS_ITS | Encounter Summary ---
Author Organization [facility] [place], Address [address] [place] [address] Phone Care Team Providers Care Staff Research Associate Name Role Phone Jessica Santamaria MD Primary Care Provider [phone] Reason for Visit * Reason Comments Med Refill Encounter Details Date Type Department Care Team (Late st Contact Info) Description 06/23/2021 Refill [facility] [address] [place] [address] Rony Donato PA [address] [place] [address] [place] [address] Social History Tobacco Use Types [...] Support [facility] [address] [address] Shavon Ng FNP-C [address] [address] documented as of this encounter Visit Diagnoses Not on filedocumented in this encounter Care Teams Staff Research Associate Relationship Specialty Start Date End Date Jessica Santamaria MD [address] [place], [place] PCP - General 04/04/19 documented as of this encounter
--- OUTSIDE RECORDS SUMMARY | 2025-04-24 17:39 | XMS_ITS | Encounter Summary ---
Author Organization [facility] Address [address] [place] [address] Phone Care Team Providers Care Paper Latcher Name Role Phone Jessica Santamaria MD Primary Care Provider [phone] Encounter Details Date Type Department Care Team (Late Contact Info) Description 09/18/2024 Documentation Only [facility] [place], [address] [place] [address] [place], [place] [address] [place] [address] Social History Tobacco Use Types [...] Support [facility] [place] [address] [place] [address] Shavon Ng FNP-C [address] [place] [address] documented as of this encounter Visit Diagnoses Not on filedocumented in this encounter Care Teams Paper Latcher Relationship Specialty Start Date End Date Jessica Santamaria MD [address] [place], [place] PCP - General 04/04/19 documented as of this encounter
--- OUTSIDE RECORDS SUMMARY | 2025-04-24 17:39 | XMS_ITS | Encounter Summary ---
Author Organization [facility] [place], Address [address] [place] [address] Phone Care Team Providers Care Strand Buncher Fine Wire Name Role Phone Jessica Santamaria MD Primary Care Provider [phone] Encounter Details Date Type Department Care Team (Late st Contact Info) Description 06/30/2024 Documentation Only [facility] [place], [address] [place] [address] [place], [place] [address] [place] [address] Social History Tobacco Use Types [...] Support [facility] [place] [address] [place] [address] Shavon Ng FNP-C [address] [place] [address] documented as of this encounter Visit Diagnoses Not on filedocumented in this encounter Care Teams Strand Buncher Fine Wire Relationship Specialty Start Date End Date Jessica Santamaria MD [address] [place], [place] PCP - General 04/04/19 documented as of this encounter
--- OUTSIDE RECORDS SUMMARY | 2025-04-24 17:39 | XMS_ITS | Encounter Summary ---
Author Organization [facility] [place], Address [address] [place] [address] Phone Care Team Providers Care Database Management Specialist Name Role Phone Jessica Santamaria MD Primary Care Provider [phone] Reason for Visit * Reason Comments Med Refill Encounter Details Date Type Department Care Team (Late st Contact Info) Description 04/16/2022 Refill [facility] [address] [place] [address] Rony Donato PA [address] [place] [address] [place] [address] Social History Tobacco Use Types Packs/Day Years [...] [facility] [address] [place] [address] Shavon Ng FNP-C [address] [place] [address] [place] [address] documented as of this encounter Visit Diagnoses Not on filedocumented in this encounter Care Teams Database Management Specialist Relationship Specialty Start Date End Date Jessica Santamaria MD [address] [place], [place] PCP - General 04/04/19 documented as of this encounter
== END 2025-04-24 13:49 | disposition home or self-care (01) ==
LOC: HO.US 13:48
PROVIDERS: PCP Internal Medicine; Visit Provider Internal Medicine
DX: E04.9 Nontoxic goiter, unspecified (principal)
CPT/HCPCS: 76536

== ENCOUNTER → 2025-04-24 13:50 | Outpatient (BNV) | payer OTHER, SELFPAY | PROVIDERS: PCP Internal Medicine; Visit Provider Radiology Diagnostic Radiology | DX: E04.9 Nontoxic goiter, unspecified (principal) | CPT/HCPCS: 76536 ==

== ENCOUNTER 2025-05-16 11:34 | Outpatient (AMB) | payer OTHER, SELFPAY ==
[2025-05-16 12:26] VITALS: BMI 27.2
--- NOTE | 2025-05-16 12:26 | A.OFFVIS_ITS ---
Vital Signs 05/16/25 12:26 Height 5 ft 1 in Weight 144 lb BMI 27.2 Intake Visit Reasons: f/u xrays; left 5th met fx Intake Note: Ginette is a 59 year old female who presents today for a follow up on her left foot injury. Patient reports about 4- 5 days ago she has noticed pain in her left foot on the dorsum and lateral aspect of her foot. She also mentions she experiences a tingling and cramping sensation in her foot. Patient uses the cam boot to walk and get around in the house. Statistical Machine Mechanic Required: Yes Statistical Machine Mechanic Services: Statistical Machine Mechanic Present Statistical Machine Mechanic Name: [id number] Allergies amlodipine Adverse Reaction (Intermediate, Verified 05/16/25 12:27) leg edema morphine Adverse Reaction (Mild, Verified 05/16/25 12:27) Rash HPI Comments Details: The patient is a 59 year old female presenting for follow-up of a left 5th met fracture. Patient was to be weight-bearing as tolerated in the cam boot without the use of an assistive device. Patient states she transitioned to weight-beari ng as tolerated in a regular sneaker on her own and states that she noticed pain when being on her feet for long periods of time. The patient also suspects the pain may have been caused by wearing tight boots with thick socks, which created discomfort. She also reports recently slipping on ice and feels she may have strained her ankle while trying to avoid a fall. She has been self-treating by applying a topical treatment for pain relief and massaging the area. She denies any other pedal concerns. [facility] Medical History (Updated 05/26/25 @ 13:34 by Samantha Zepeda DPM) Fracture of fourth metatarsal bone of left foot Left foot pain Nondisplaced fracture of fifth left metatarsal bone Injury of left foot Nondisplaced fracture of fifth metatarsal bone, left foot, initial encounter for closed fracture Nondisplaced fracture of base of fifth metacarpal bone Hx of sciatica CVA (cerebral vascular accident) Malnutrition Diabetes mellitus Right ankle pain Left ankle pain Fatigue Hair loss Back pain Pancreatic lesion Pneumonia due to COVID-19 virus Essential hypertension Surgical History History of esophagogastroduodenoscopy (EGD) Hx of colonoscopy Kidney transplant recipient AV fistula Kidney transplant status History of tubal ligation History of foot surgery History of lipoma History of benign breast tumor Family History Father CVD (cardiovascular disease) Prostate cancer Mother No problems noted. Social History Household Members: Children Housing: Apartment Alcohol intake: never Patient Tobacco Use Status: Former Tobacco user Tobacco use type: Cigarette e-Cigarette/Vaping Use: Never Used Second Hand Smoke Exposure: No service: No Current occupational status: unemployed Cognitive needs: No Hearing needs: No Vision needs: Yes Review of Systems Const Details: - Musculoskeletal: Reports intermittent edema and pain to the left foot. Repo rts intermittent pain to the left ankle due to slipping on ice. All systems reviewed & are unremarkable except as noted in HPI and below Physical Exam Vital Signs: BMI result Body Mass Index 27.2 Extrem Other: LLE Focused Physical Exam: Derm: Mild swelling noted to the dorsolateral aspect of the foot, reduced in comparison to last visit. No open lesions, abrasion or wounds noted. No ecchymois or discoloration noted. No maceration noted. Skin supple and turgor WNL. Vasc: DP/PT pulses palpable. CFT < 3 secs. Temp gradient warm to warm. Pedal hair diminished. No varicosities noted. Neuro: Protective sensations slightly diminished. MSK: Minimal pain on palpation to the lateral aspect of the foot at the base of the 5th metatarsal. No pain on palpation to the lateral aspect of the left ankle. No crepitus noted. ROM of the forefoot WNL except for the 5th toe which is reduced. ROM of the hindfoot and ankle WNL. Mildly Antalgic gait noted without the use of an assistive device. Results Reviewed Results Reviewed: Laboratory Tests 03/19/25 09:00 Fasting Glucose 113 H Estimat Average Glucose 123 Hemoglobin A1c % 5.9 Ordered left foot weightbearing three-view x-rays to be performed prior to next visit. Podiatry read of left foot xray (04/10/25): Bone callus formation and periosteal reaction noted to the neck of the 4th metatarsal. No increase in bone consolidation and bone callus formation to the base of the 5th met noted. Pes planus foot type. No other acute fractures or dislocations noted. Left foot xray (04/10/25): FINDINGS: Callus formation within the fracture distal fourth metatarsal. No callus formation at the base of the fifth metatarsal. Loss of plantar arch. No subcutaneous emphysema. No metallic or radiopaque foreign body. No lytic or blastic lesions. IMPRESSION: Healing fracture, fourth metatarsal. No healing fracture, base of the fifth metatarsal. Pes planus. Podiatry read of left foot xray (03/23/25): Noted healing to the nondisplaced Alfred fracture 5th met base. Increase bone consolidation and bone callus formation noted. No other acute fractures or dislocations noted. Left foot xray (03/23/25): FINDINGS: Again seen is a transverse fracture through the proximal metaphysis of the fifth metatarsal extending into the intermetatarsal joint. No other fractures are identified. No changes are noted. An os trigonum is incidentally noted. Also, there is ossification in the distal Achilles tendon near the calcaneal enthesophytes. IMPRESSION: Stable Alfred fracture. Podiatry read of left foot xray (03/06/25): Non-displaced Alfred fracture to the 5th met noted. Joint spacing WNL. Left foot xray (03/06/25): FINDINGS: Six views of the left foot and ankle are submitted. Osseous mineralization is normal. There is a nondisplaced fracture of the base of the 5th metatarsal which is not intra-articular. No additional fracture is seen. There is no dislocation. The joint spaces are preserved. The soft tissues are unremarkable. IMPRESSION: Nondisplaced fracture of the base of the 5th metatarsal. Podiatry read of left ankle xray (03/06/25): No acute fractures or dislocations noted. Joint spacing of the ankle WNL. Os trigonus noted. Mild calcification of the Achilles tendon at the insertion point noted. Left ankle xray (03/06/25): FINDINGS: Six views of the left foot and ankle are submitted. Osseous mineralization is normal. There is a nondisplaced fracture of the base of the 5th metatarsal which is not intra-articular. No additional fracture is seen. There is no dislocation. The joint spaces are preserved. The soft tissues are unremarkable. IMPRESSION: Nondisplaced fracture of the base of the 5th metatarsal. Assessment & Plan Assessment & Plan (1) Nondisplaced fracture of fifth metatarsal bone, left foot, initial encounter for closed fracture: Code(s): S92.355A - Nondisplaced fracture of fifth metatarsal bone, left foot, initial encounter for closed fracture Category: Medical (2) Fracture of 5th metatarsal: Code(s): S92.353A - Displaced fracture of fifth metatarsal bone, unspecified foot, initial encounter for closed fracture Category: Medical (3) Injury of left foot: Code(s): S99.922A - Unspecified injury of left foot, initial encounter Category: Medical Qualifiers: Encounter type: initial encounter Qualified Code(s): S99.922A - Un specified injury of left foot, initial encounter (4) Nondisplaced fracture of fifth left metatarsal bone: Code(s): S92.355A - Nondisplaced fracture of fifth metatarsal bone, left foot, initial encounter for closed fracture Category: Medical Qualifiers: Encounter type: initial encounter Fracture type: closed Qualified Code(s): S92.355A - Nondisplaced fracture of fifth metatarsal bone, left foot, initial encounter for closed fracture (5) Left foot pain: Code(s): M79.672 - Pain in left foot Category: Medical (6) Left ankle pain: Code(s): M25.572 - Pain in left ankle and joints of left foot Category: Medical Qualifiers: Chronicity: acute Qualified Code(s): M25.572 - Pain in left ankle and joints of left foot (7) Diabetes mellitus: Code(s): E11.9 - Type 2 diabetes mellitus without complications Category: Medical Qualifiers: Diabetes mellitus type: type 2 Diabetes mellitus long term care phlebotomist insulin use: without long term care phlebotomist use Diabetes mellitus complication status: with hyperglycemia Qualified Code(s): E11.65 - Type 2 diabetes mellitus with hyperglycemia (8) Fracture of fourth metatarsal bone of left foot: Code(s): S92.342A - Displaced fracture of fourth metatarsal bone, left foot, initial encounter for closed fracture Category: Medical Qualifiers: Encounter type: initial encounter Fracture type: closed Plan Patient was informed and verbally consented to the use of an ambient scribe for clinic note documentation during this visit. I discussed with the patient her recent recurrence of foot pain after a period of improvement. We reviewed potential causes, including irritation from tight footwear and a possible ankle strain from a recent slip on ice. I reviewed x- ray findings with the patient stating no change to the 5th metatarsal but there is incidental finding of healing to the 4th metatarsal of the left foot. Recommended ordering new x-rays to be performed prior to next visit. I provided recommendations for managing potential swelling with an IVETT bandage, ibuprofen, and ice. We also discussed the importance of wearing supportive sneakers. I will give her a referral for physical therapy for her foot, which she can use concurrently with her scheduled back therapy. We agreed on a follow-up appointment in 3-4 weeks to review the results and her progress. - Ordered new left foot x-rays to be performed prior to next visit. - Advised patient to adhere to rice protocol. - Patient may take ibuprofen PRN for pain. - Patient may be weight-bearing as tolerated in a supportive sneaker and may use an assistive device as needed. - Patient may use cam boot if pain increases. - Advised patient to avoid barefoot walking and to wear supportive shoe gear. - Provided patient with a referral for physical therapy. RTC in 3 weeks. Orders: Orders XR foot LT min 3V 05/18/25 S92.355A - Nondisplaced fracture of fifth metatarsal bone, left foot, initial encounter for closed fracture, S92.353A - Displaced fracture of fifth metatarsal bone, unspecified foot, initial encounter for closed fracture, M79.672 - Pain in left foot, S99.922A - Unspecified injury of left foot, initial encounter PT Evaluation and Treatment 05/16/25 M79.672 - Pain in left foot, S99.922A - Unspecified injury of left foot, initial encounter, S92.355A - Nondisplaced fracture of fifth metatarsal bone, left foot, initial encounter for closed fracture, S92.353A - Displaced fracture of fifth metatarsal bone, unspecified foot, initial encounter for closed fracture Coding Level of Care Code Est Pt Level 4 (82315) Diagnoses Nondisplaced fracture of fifth metatarsal bone, left foot, initial encounter for closed fracture S92.355A Fracture of 5th metatarsal S92.353A Injury of left foot, initial encounter S99.922A Encounter type: initial encounter Closed nondisplaced fracture of fifth metatarsal bone of left foot, initial encounter S92.355A Encounter type: initial encounter Fracture type: closed Left foot pain M79.672 Acute left ankle pain M25.572 Chronicity: acute Type 2 diabetes mellitus with hyperglycemia, without long-term current use of insulin E11.65 Diabetes mellitus type: type 2 Diabetes mellitus long term care phlebotomist insulin use: without long term care phlebotomist use Diabetes mellitus complication status: with hyperglycemia Fracture of fourth metatarsal bone of left foot S92.342A Encounter type: initial encounter Fracture type: closed Time Spent (min) 33
== END 2025-05-16 12:43 | disposition home or self-care (01) ==
LOC: HO.HPODS 11:34
PROVIDERS: PCP Internal Medicine; Visit Provider Student in an Organized Health Care Education/Training Program
DX: S92.355A Nondisplaced fracture of fifth metatarsal bone, left foot, initial encounter for closed fracture (principal); S92.353A Displaced fracture of fifth metatarsal bone, unspecified foot, initial encounter for closed fracture; S99.922A Unspecified injury of left foot, initial encounter; M79.672 Pain in left foot; M25.572 Pain in left ankle and joints of left foot; E11.65 Type 2 diabetes mellitus with hyperglycemia; S92.342A Displaced fracture of fourth metatarsal bone, left foot, initial encounter for closed fracture
CPT/HCPCS: 99214

== ENCOUNTER → 2025-05-16 11:34 | Outpatient (BNVA) | payer OTHER, SELFPAY | PROVIDERS: PCP Internal Medicine; Visit Provider Student in an Organized Health Care Education/Training Program | DX: S92.355A Nondisplaced fracture of fifth metatarsal bone, left foot, initial encounter for closed fracture (principal); M79.672 Pain in left foot; E11.65 Type 2 diabetes mellitus with hyperglycemia; S92.342A Displaced fracture of fourth metatarsal bone, left foot, initial encounter for closed fracture; X58.XXXA Exposure to other specified factors, initial encounter; Y93.9 Activity, unspecified; Y92.9 Unspecified place or not applicable; Y99.9 Unspecified external cause status | CPT/HCPCS: 99212 ==

== ENCOUNTER 2025-05-18 15:36 | Outpatient (REF) | payer OTHER, SELFPAY ==
--- NOTE | ~2025-05-18 | XR_ITS ---
EXAMINATION: XR FOOT 3 OR MORE VIEWS LEFT HISTORY: S92.355A - Nondisplaced fracture of fifth metatarsal bone, left foot, in... COMPARISON: Comparison is made with the prior examination dated 04/10/2025. FINDINGS: Three views of the left foot are submitted. Osseous mineralization is normal. The previously seen fracture of the 4th metatarsal shaft appears healed with thick mature callus formation. Fracture line involving the base of the 5th metatarsal remains visible, but is more indistinct, consistent with healing. The joint spaces are preserved. There is pes planus. The soft tissues are unremarkable. XR/XR foot LT min 3V IMPRESSION: 1. The previously seen 4th metatarsal shaft fracture appears healed. 2. Healing fracture of the base of the 5th metatarsal. Electronically signed by: Tereso Emmanuel MD 05/18/2025 03:56 PM EST
--- OUTSIDE RECORDS SUMMARY | 2025-05-18 16:35 | XMS_ITS | Encounter Summary ---
Author Organization [facility] Address [address] [place] [address] Phone Care Team Providers Care Floor Plan Adjuster Name Role Phone Jessica Santamaria MD Primary Care Provider [phone] Encounter Details Date Type Department Care Team (Late Contact Info) Description 09/27/2024 Documentation Only [facility] [place], [address] [place] [address] [place], [place] [address] [place] [address] Social History Tobacco Use Types [...] Support [facility] [place] [address] [place] [address] Shavon Ng FNP-C [address] [facility] [address] [place] [address] documented as of this encounter Visit Diagnoses Not on filedocumented in this encounter Care Teams Floor Plan Adjuster Relationship Specialty Start Date End Date Jessica Santamaria MD [address] [place], [place] PCP - General 04/04/19 documented as of this encounter
--- OUTSIDE RECORDS SUMMARY | 2025-05-18 16:35 | XMS_ITS | Encounter Summary ---
Author Organization [facility] [place], Address [address] [place] [address] Phone Care Team Providers Care Mobility Engineer Name Role Phone Jessica Santamaria MD Primary Care Provider [phone] Reason for Visit * Reason Comments Med Refill Encounter Details Date Type Department Care Team (Late st Contact Info) Description 06/11/2021 Refill [facility] [address] [place] [address] Rony Donato PA [address] [place] [address] [place] [address] Social History Tobacco Use Types [...] Support [facility] [address] [facility] [address] Shavon Ng FNP-C [address] [address] documented as of this encounter Visit Diagnoses Not on filedocumented in this encounter Care Teams Mobility Engineer Relationship Specialty Start Date End Date Jessica Santamaria MD [address] [place], [place] PCP - General 04/04/19 documented as of this encounter
--- OUTSIDE RECORDS SUMMARY | 2025-05-18 16:35 | XMS_ITS | Encounter Summary ---
Author Organization [facility] [place], Address [address] [place] [address] Phone Care Team Providers Care Invoice Machine Operator Name Role Phone Jessica Santamaria MD Primary Care Provider Encounter Details Date Type Department Care Team (Late Contact Info) Description 06/30/2024 Documentation Only [facility] [place], [address] [place] [address] [place], [place] [address] [place] [address] Social History Tobacco Use Types [...] Support [facility] [place] [address] [address] Shavon Ng FNP-C [address] [place] [address] documented as of this encounter Visit Diagnoses Not on filedocumented in this encounter Care Teams Invoice Machine Operator Relationship Specialty Start Date End Date Jessica Santamaria MD [address] [place], [place] PCP - General 04/04/19 documented as of this encounter
--- OUTSIDE RECORDS SUMMARY | 2025-05-18 16:35 | XMS_ITS | Encounter Summary ---
Author Organization [facility] [place], Address [address] [place] [address] Phone Care Team Providers Care Service Consultant Name Role Phone Jessica Santamaria MD Primary Care Provider [phone] Reason for Visit * Reason Comments Med Refill Encounter Details Date Type Department Care Team (Late st Contact Info) Description 06/23/2021 Refill [facility] [address] [place] [address] Rony Donato PA [address] [place] [address] [place] [address] Social History Tobacco Use Types [...] & Transplant Services [facility] [address] [place] [address] Shavon Ng FNP-C [address] [place] [address] documented as of this encounter Visit Diagnoses Not on filedocumented in this encounter Care Teams Service Consultant Relationship Specialty Start Date End Date Jessica Santamaria MD [address] [place], [place] PCP - General 04/04/19 documented as of this encounter
--- OUTSIDE RECORDS SUMMARY | 2025-05-18 16:35 | XMS_ITS | Encounter Summary ---
Author Organization [facility] Address [address] [place] [address] Phone Care Team Providers Care Ski Guide Name Role Phone Jessica Santamaria MD Primary Care Provider [phone] Encounter Details Date Type Department Care Team (Late st Contact Info) Description 09/15/2024 Telephone [facility] [address] [address] Karyn Ross Social History Tobacco [...] tender and painful. Please return the call [phone] - thank you documented in this encounter Plan of Treatment Upcoming Encounters Date Type Department Care Team (Late st Contact Info) Description 06/14/2025 1:00 PM EST Clinical Support [facility] [address] [place] [address] Shavon Ng, HAI-C [address] [place] [address] documented as of this encounter Visit Diagnoses Not on filedocumented in this encounter Care Teams Ski Guide Relationship Specialty Start Date End Date Jessica Santamaria MD [address] [place] [address] PCP - General 04/04/19 documented as of this encounter
--- OUTSIDE RECORDS SUMMARY | 2025-05-18 16:35 | XMS_ITS | Encounter Summary ---
Author Organization [facility] Address [address] [place] [address] Phone Care Team Providers Care Pig Casting Machine Operator Name Role Phone Jessica Santamaria MD Primary Care Provider [phone] Encounter Details Date Type Department Care Team (Late Contact Info) Description 09/18/2024 Documentation Only [facility] [place], [address] [place] [address] [place], [place] [address] [place] [address] Social History Tobacco Use [...] Support [facility] [place] [address] [place] [address] Shavon Ng FNP-C [address] [place] [address] documented as of this encounter Visit Diagnoses Not on filedocumented in this encounter Care Teams Pig Casting Machine Operator Relationship Specialty Start Date End Date Jessica Santamaria MD [address] [place], [place] PCP - General 04/04/19 documented as of this encounter
--- OUTSIDE RECORDS SUMMARY | 2025-05-18 16:35 | XMS_ITS | Encounter Summary ---
Author Organization [facility] [place], Address [address] [place] [address] Phone Care Team Providers Care Scaffold Erector Name Role Phone Jessica Santamaria MD Primary Care Provider [phone] Reason for Visit * Reason Comments Med Refill Encounter Details Date Type Department Care Team (Late st Contact Info) Description 06/20/2021 Refill [facility] [address] [place] [address] Rony Donato PA [address] [place] [address] [place] [address] Social History Tobacco Use Types [...] Clinical Support [facility] [address] [place] [address] Shavon Ng FNP-C [address] [place] [address] documented as of this encounter Visit Diagnoses Not on filedocumented in this encounter Care Teams Scaffold Erector Relationship Specialty Start Date End Date Jessica Santamaria MD [address] [place], [place] PCP - General 04/04/19 documented as of this encounter
--- OUTSIDE RECORDS SUMMARY | 2025-05-18 16:35 | XMS_ITS | Encounter Summary ---
Author Organization [facility] [place], Address [address] [place] [address] Phone Care Team Providers Care Lead Inspector Name Role Phone Jessica Santamaria MD Primary Care Provider [phone] Encounter Details Date Type Department Care Team (Late Contact Info) Description 06/30/2024 Documentation Only [facility] [place], [address] [place] [address] [place], [place] [address] [place] [address] Social History Tobacco Use Types [...] Support [facility] [place] [address] [place] [address] Shavon Ng FNP-C [address] [address] documented as of this encounter Visit Diagnoses Not on filedocumented in this encounter Care Teams Lead Inspector Relationship Specialty Start Date End Date Jessica Santamaria MD [address] [place], [place] PCP - General 04/04/19 documented as of this encounter
--- OUTSIDE RECORDS SUMMARY | 2025-05-18 16:35 | XMS_ITS | Encounter Summary ---
Author Organization [facility] Address [address] [place] [address] Phone Care Team Providers Care Jalousies Installer Name Role Phone Jessica Santamaria MD Primary Care Provider [phone] Encounter Details Date Type Department Care Team (Late Contact Info) Description 01/23/2025 Documentation Only [facility] [place], [address] [place] [address] [place] [address] [place] [address] Social History Tobacco Use Types [...] Support [facility] [place] [address] [place] [address] Shavon Ng FNP-C [address] [place] [address] documented as of this encounter Visit Diagnoses Not on filedocumented in this encounter Care Teams Jalousies Installer Relationship Specialty Start Date End Date Jessica Santamaria MD [address] [place], [place] PCP - General 04/04/19 documented as of this encounter
--- OUTSIDE RECORDS SUMMARY | 2025-05-18 16:35 | XMS_ITS | Encounter Summary ---
Author Organization [facility] Address [address] [place] [address] Phone Care Team Providers Care Kick Press Operator Name Role Phone Jessica Santamaria MD Primary Care Provider [phone] Encounter Details Date Type Department Care Team (Late Contact Info) Description 03/19/2025 Documentation Only [facility] [place], [address] [place] [address] [place], [place] [address] [place] [address] Social History Tobacco Use Types [...] Support [facility] [place] [address] [place] [address] Shavon Ng FNP-C [address] [place] [address] documented as of this encounter Visit Diagnoses Not on filedocumented in this encounter Care Teams Kick Press Operator Relationship Specialty Start Date End Date Jessica Santamaria MD [address] [place], [place] PCP - General 04/04/19 documented as of this encounter
--- OUTSIDE RECORDS SUMMARY | 2025-05-18 16:36 | XMS_ITS | Encounter Summary ---
Author Organization [facility] Address [address] [place] [address] Phone Care Team Providers Care Traffic Agent Name Role Phone Jessica Santamaria MD Primary Care Provider [phone] Encounter Details Date Type Department Care Team (Late Contact Info) Description 05/17/2025 Orders Only [facility] [place], [address] [place] [address] [place], [place] [address] [place] [address] Social History Tobacco Use [...] Support [facility] [place] [address] [place] [address] Shavon Ng FNP-C [address] [place] [address] documented as of this encounter Visit Diagnoses Not on filedocumented in this encounter Care Teams Traffic Agent Relationship Specialty Start Date End Date Jessica Santamaria MD [address] [place], [place] PCP - General 04/04/19 documented as of this encounter
--- OUTSIDE RECORDS SUMMARY | 2025-05-18 16:36 | XMS_ITS | Encounter Summary ---
Author Organization [facility] Address [address] [place] [address] Phone Care Team Providers Care Contract Consultant Name Role Phone Jessica Santamaria MD Primary Care Provider [phone] Encounter Details Date Type Department Care Team (Late Contact Info) Description 09/20/2023 Documentation Only [facility] [place], [address] [place] [address] [place], [place] [address] [place] [address] Social History Tobacco Use Types [...] Support [facility] [place] [address] [address] Shavon Ng FNP-C [address] [place] [address] documented as of this encounter Visit Diagnoses Not on filedocumented in this encounter Care Teams Contract Consultant Relationship Specialty Start Date End Date Jessica Santamaria MD [address] [place], [place] PCP - General 04/04/19 documented as of this encounter
--- OUTSIDE RECORDS SUMMARY | 2025-05-18 16:36 | XMS_ITS | Encounter Summary ---
Author Organization [facility] [place], Address [address] [place] [address] Phone Care Team Providers Care Servicer Name Role Phone Jessica Santamaria MD Primary Care Provider [phone] Reason for Visit * Reason Comments Med Refill Encounter Details Date Type Department Care Team (Late st Contact Info) Description 04/16/2022 Refill [facility] [address] [place] [address] Rony Donato PA [address] [place] [address] [place] [address] Social History Tobacco Use Types Packs/Day Years [...] [facility] [address] [place] [address] Shavon Ng FNP-C [address] [place] [address] [place] [address] documented as of this encounter Visit Diagnoses Not on filedocumented in this encounter Care Teams Servicer Relationship Specialty Start Date End Date Jessica Santamaria MD [address] [place], [place] PCP - General 04/04/19 documented as of this encounter
--- OUTSIDE RECORDS SUMMARY | 2025-05-18 16:36 | XMS_ITS | Encounter Summary ---
Author Organization [facility] [place], Address [address] [place] [address] Phone Care Team Providers Care Staff Internist Office Based Only Name Role Phone Jessica Santamaria MD Primary Care Provider [phone] Reason for Visit * Reason Comments Med Refill Encounter Details Date Type Department Care Team (Late st Contact Info) Description 07/20/2023 Refill [facility] [address] [place] [address] Rony Donato PA [address] [place] [address] [place] [address] Social History Tobacco Use Types [...] Care & Transplant Services [facility] [address] [place] [address] Shavon Ng FNP-C [address] [place] [address] documented as of this encounter Visit Diagnoses Not on filedocumented in this encounter Care Teams Staff Internist Office Based Only Relationship Specialty Start Date End Date Jessica Santamaria MD [address] [place], [place] PCP - General 04/04/19 documented as of this encounter
--- OUTSIDE RECORDS SUMMARY | 2025-05-18 16:36 | XMS_ITS | Encounter Summary ---
Author Organization [facility] Address [address] [place] [address] Phone Care Team Providers Care Vp Of Customer Experience Strategy Name Role Phone Jessica Santamaria MD Primary Care Provider [phone] Encounter Details Date Type Department Care Team (Late Contact Info) Description 09/18/2024 Documentation Only [facility] [place], [address] [place] [address] [place], [place] [address] [place] [address] Social History Tobacco Use Types [...] Support [facility] [place] [address] [place] [address] Shavon Ng FNP-C [address] [place] [address] documented as of this encounter Visit Diagnoses Not on filedocumented in this encounter Care Teams Vp Of Customer Experience Strategy Relationship Specialty Start Date End Date Jessica Santamaria MD [address] [place], [place] PCP - General 04/04/19 documented as of this encounter
--- OUTSIDE RECORDS SUMMARY | 2025-05-18 16:36 | XMS_ITS | Encounter Summary ---
Author Organization [facility] Address [address] [place] [address] Phone Care Team Providers Care Core Finisher Name Role Phone Jessica Santamaria MD Primary Care Provider [phone] Encounter Details Date Type Department Care Team (Late Contact Info) Description 11/18/2023 Documentation Only [facility] [place], [address] [place] [address] [place], [place] [address] [place] [address] Social History [...] Support [facility] [place] [address] [place] [address] Shavon Ng FNP-C [address] [place] [address] documented as of this encounter Visit Diagnoses Not on filedocumented in this encounter Care Teams Core Finisher Relationship Specialty Start Date End Date Jessica Santamaria MD [address] [place], [place] PCP - General 04/04/19 documented as of this encounter
--- OUTSIDE RECORDS SUMMARY | 2025-05-18 16:36 | XMS_ITS | Encounter Summary ---
Author Organization [facility] [place], Address [address] [place] [address] Phone Care Team Providers Care Electro Winning Operator Name Role Phone Jessica Santamaria MD Primary Care Provider [phone] Reason for Visit * Reason Comments Med Refill Encounter Details Date Type Department Care Team (Late st Contact Info) Description 08/24/2022 Refill [facility] [address] [place] [address] Rony Donato PA [address] [place] [address] [place] [address] Social History Tobacco Use Types [...] & Transplant Services [facility] [address] [address] Shavon Ng FNP-C [address] [place] [address] documented as of this encounter Visit Diagnoses Not on filedocumented in this encounter Care Teams Electro Winning Operator Relationship Specialty Start Date End Date Jessica Santamaria MD [address] [place], [place] PCP - General 04/04/19 documented as of this encounter
--- OUTSIDE RECORDS SUMMARY | 2025-05-18 16:36 | XMS_ITS | Encounter Summary ---
Author Organization [facility] Address [address] [place] [address] Phone Care Team Providers Care Casting Wheel Operator Helper Name Role Phone Jessica Santamaria MD Primary Care Provider [phone] Encounter Details Date Type Department Care Team (Late Contact Info) Description 10/05/2023 Documentation Only [facility] [place], [address] [place] [address] [place], [place] [address] [place] [address] Social History Tobacco Use [...] Support [facility] [place] [address] [place] [address] Shavon Ng FNP-C [address] [place] [address] documented as of this encounter Visit Diagnoses Not on filedocumented in this encounter Care Teams Casting Wheel Operator Helper Relationship Specialty Start Date End Date Jessica Santamaria MD [address] [place], [place] PCP - General 04/04/19 documented as of this encounter
--- OUTSIDE RECORDS SUMMARY | 2025-05-18 16:36 | XMS_ITS | Encounter Summary ---
Author Organization [facility] [place], Address [address] [place] [address] Phone Care Team Providers Care Union Organizer Name Role Phone Jessica Santamaria MD Primary Care Provider [phone] Reason for Visit * Reason Comments Med Refill Encounter Details Date Type Department Care Team (Late st Contact Info) Description 06/23/2022 Refill [facility] [address] [place] [address] Rony Donato PA [address] [place] [address] [place] [address] Social History Tobacco Use Types [...] Transplant Services [facility] [place] [address] [place] [address] Shavon Ng FNP-C [address] [place] [address] documented as of this encounter Visit Diagnoses Not on filedocumented in this encounter Care Teams Union Organizer Relationship Specialty Start Date End Date Jessica Santamaria MD [address] [place], [place] PCP - General 04/04/19 documented as of this encounter
--- OUTSIDE RECORDS SUMMARY | 2025-05-18 16:36 | XMS_ITS | Encounter Summary ---
Author Organization [facility] Address [address] [place] [address] Phone Care Team Providers Care Bar Porter Name Role Phone Jessica Santamaria MD Primary Care Provider Encounter Details Date Type Department Care Team (Late Contact Info) Description 09/28/2023 Documentation Only [facility] [place], [address] [place] [address] [place], [place] [address] [place] [address] Social History Tobacco Use [...] [facility] [place] [address] [place] [address] Shavon Ng FNP-C [address] [place] [address] documented as of this encounter Visit Diagnoses Not on filedocumented in this encounter Care Teams Bar Porter Relationship Specialty Start Date End Date Jessica Santamaria MD [address] [place], [place] PCP - General 04/04/19 documented as of this encounter
--- OUTSIDE RECORDS SUMMARY | 2025-05-18 16:36 | XMS_ITS | Encounter Summary ---
Author Organization [facility] Address [address] [place] [address] Phone Care Team Providers Care Thermo Processor Name Role Phone Jessica Santamaria MD Primary Care Provider [phone] Encounter Details Date Type Department Care Team (Late Contact Info) Description 02/16/2024 Documentation Only [facility] [place], [address] [place] [address] [place], [place] 2[address] [place] [address] Social History Tobacco Use Types [...] Support [facility] [place] [address] [place] [address] Shavon Ng FNP-C [address] [place] [address] documented as of this encounter Visit Diagnoses Not on filedocumented in this encounter Care Teams Thermo Processor Relationship Specialty Start Date End Date Jessica Santamaria MD [address] [place], [place] PCP - General 04/04/19 documented as of this encounter
--- OUTSIDE RECORDS SUMMARY | 2025-05-18 16:36 | XMS_ITS | Encounter Summary ---
Author Organization [facility] Address [address] [place] [address] Phone Care Team Providers Care Trim Machine Adjuster Name Role Phone Jessica Santamaria MD Primary Care Provider [phone] Encounter Details Date Type Department Care Team (Late Contact Info) Description 09/20/2023 Documentation Only [facility] [place], [address] [address] [place], [place] [address] [place] [address] Social History Tobacco Use Types [...] Support [facility] [place] [address] [place] [address] Shavon Ng FNP-C [address] [place] [address] documented as of this encounter Visit Diagnoses Not on filedocumented in this encounter Care Teams Trim Machine Adjuster Relationship Specialty Start Date End Date Jessica Santamaria MD [address] [place], [place] PCP - General 04/04/19 documented as of this encounter
--- OUTSIDE RECORDS SUMMARY | 2025-05-18 16:36 | XMS_ITS | Encounter Summary ---
Author Organization [facility] Address [address] [place] [address] Phone Care Team Providers Care Marketing Communication Manager Name Role Phone Jessica Santamaria MD Primary Care Provider [phone] Encounter Details Date Type Department Care Team (Late Contact Info) Description 03/12/2025 Documentation Only [facility] [place], [address] [place] [address] [place], [place] [address] [place] [address] Social History Tobacco Use Types [...] Support [facility] [place] [address] [place] [address] Shavon Ng FNP-C [address] [place] [place] [address] documented as of this encounter Visit Diagnoses Not on filedocumented in this encounter Care Teams Marketing Communication Manager Relationship Specialty Start Date End Date Jessica Santamaria MD [address] [place], [place] PCP - General 04/04/19 documented as of this encounter
--- OUTSIDE RECORDS SUMMARY | 2025-05-18 16:36 | XMS_ITS | Encounter Summary ---
Author Organization [facility] Address [address] [address] Phone Care Team Providers Care Irrigation Equipment Mechanic Name Role Phone Jessica Santamaria MD Primary Care Provider [phone] Reason for Visit * Reason Comments Med Refill Encounter Details Date Type Department Care Team (Late st Contact Info) Description 04/12/2023 Refill [facility], [address] [place] [address] Alvaro Stratton MD [address] [place] [address] Social History Tobacco Use Types [...] Support [facility] [place] [address] [address] Shavon Ng FNP-C [address] [place] [address] documented as of this encounter Visit Diagnoses Not on filedocumented in this encounter Care Teams Irrigation Equipment Mechanic Relationship Specialty Start Date End Date Jessica Santamaria MD [address] [place], [place] PCP - General 04/04/19 documented as of this encounter
--- OUTSIDE RECORDS SUMMARY | 2025-05-18 16:36 | XMS_ITS | Encounter Summary ---
Author Organization [facility] [place], Address [address] [address] Phone Care Team Providers Care Nut Sheller Name Role Phone Jessica Santamaria MD Primary Care Provider [phone] Reason for Visit * Reason Comments Med Refill Encounter Details Date Type Department Care Team (Late st Contact Info) Description 07/13/2022 Refill [facility] [address] [place] [address] Alvaro Stratton MD [address] [place] [address] [place] [address] Social History Tobacco Use Types [...] Services [facility] [address] [place] [address] Shvaon Ng FNP-C [address] [place] [address] documented as of this encounter Visit Diagnoses Not on filedocumented in this encounter Care Teams Nut Sheller Relationship Specialty Start Date End Date Jessica Santamaria MD [address] [place], [place] PCP - General 04/04/19 documented as of this encounter
--- OUTSIDE RECORDS SUMMARY | 2025-05-18 16:36 | XMS_ITS | Encounter Summary ---
Author Organization [facility] [place], Address [address] [place] [address] Phone Care Team Providers Care Science Technicians Name Role Phone Jessica Santamaria MD Primary Care Provider [phone] Encounter Details Date Type Department Care Team (Late Contact Info) Description 04/28/2024 Documentation Only [facility] [place], [address] [place] [address] [place], [place] [address] [place] [address] Social History Tobacco Use Types [...] Support [facility] [place] [address] [place] [address] Shavon Ng FNP-C [address] [place] [address] documented as of this encounter Visit Diagnoses Not on filedocumented in this encounter Care Teams Science Technicians Relationship Specialty Start Date End Date Jessica Santamaria MD [address] [place], [place] PCP - General 04/04/19 documented as of this encounter
--- OUTSIDE RECORDS SUMMARY | 2025-05-18 16:36 | XMS_ITS | Clinical Summary ---
Author Organization [facility] [place], Address [address] [place] [address] [place] [address] Phone Care Team Providers Care Conversion Developer Name Role Phone Jessica Santamaria MD Primary Care Provider [phone] Allergies Active Allergy Reactions Criticality Noted Date [...] MORNING 90 tablet 3 03/30/20 24 Active mycophenolate (MYFORTIC) 180 MG EC tablet [...] time each day 12/06/19 25 Active Pancrelipase, Zws-Nwsf-Abbz, (CREON PO) Take by mouth in the [...] crush, chew, or split. 30 tablet 11 02/09/20 25 026 Active tacrolimus (PROGRAF) 1 MG capsule Take 6 capsules (6 mg total) by mouth in the morning and 6 capsules (6 mg total) in the evening. 360 capsule 05/17/20 25 026 Active tacrolimus (PROGRAF) 1 MG capsule Take 6 capsules (6 mg total) by mouth in the morning and 6 capsules (6 mg total) in the evening. 360 capsule 05/09/20 24 025 Discontin ued(Reord er (does not appear on AVS)) Active Problems Problem Noted Date Diagnosed Date [...] Encounters Date Type Department Care Team Description 05/17/2025 Orders Only [facility] Of [address] [place] [address] Hiwot Smith MA 04/05/2025 2:00 PM EST Clinical Support [facility] [address] [place] [address] Shavon Ng FNP-C Stage 3a chronic kidney disease (HCC) (Primary Dx); History of renal transplant; History of immunosuppressive therapy 03/27/2025 Orders Only [facility] [address] [place] [address] Hiwot Smith [place] Stage 3b chronic kidney [...] Only [facility] [address] [place] [address] Hiwot Smith MA 03/12/2025 Documentation Only [facility] [address] [place] [address] Hiwot Smith MA from Last 3 Months [...] Care & [facility] [place] [address] [place] [address] Shavon Ng, CERTIFIED NURSES' AIDE-C [address] [place] [address] Health Maintenance Due Date Last Done Comments Breast Cancer Screening 1965 Hepatitis B Vaccine (1 of 3 - 19+ 3-dose series) 1985 10/11/2007, 03/09/2007, 11/19/2006 Pneumococcal Vaccine: 50+ Ye ars (3 of 3 - PCV) 06/14/2016 06/14/2015, 07/27/2014, 12/24/2011 Colonoscopy (Post-Transplant Patient) 01/10/2020 Mammogram (Post-Transplant Patient) 01/10/2020 Pelvic Exam (Post-Transplant Patient) 01/10/2020 Diabetes: Ophthalmology Exam 10/01/2021 Diabetes: Pedal Pulse Checked 10/01/2021 Diabetes: Sensory Foot Exam 10/01/2021 Diabetes: Visual Foot Exam 10/01/2021 Diabetes: Hemoglobin A1C 02/13/2023 023, 09/09/2022, 05/13/2022, Additional history exists Influenza Vaccine (#1) 2025 4, 04/05/2023, 03/19/2022, Additional history exists Pneumococcal Vaccine: Peds ( 0 to 5 Years) and At-Risk Patients (6 to 49 Years) Discontinued 06/14/2015, 07/27/2014, 12/24/2011 Procedures Procedure Name Priority Date/Time Associated Diagnosis [...] EDT) Hemoglobin A1C 6.4(H) (4.0-5.6) % [facility] Comment: MONITORING: In known diabetic patients, hemoglobin A1c targets should be discussed with health care provider. DIAGNOSTIC USE: The [place] [employer] Association (ADA) and the World Health [...] Supplement 1 Testing performed or reported by [facility], a Service of [facility], [address] [place] [address] Tate Pham MD, Changer Fixer [facility]# [id number] Blood specimen (specimen) Venous blood / Unknown 11/13/2022 9:47 AM EDT 11/13/2022 9:48 AM EDT Rony MEHTA [facility] BLOOD ORDERABLES Final Re sult [facility] from Last 3 Months or Most Recently Relevant to Health Maintenance Insurance [facility] Medicaid Care Teams Conversion Developer Relationship Specialty Start Date End Date Jessica Santamaria MD [address] [place], [place] PCP - General 04/04/19
--- OUTSIDE RECORDS SUMMARY | 2025-05-18 16:36 | XMS_ITS | Encounter Summary ---
Author Organization [facility] Address [address] [place] [address] Phone Care Team Providers Care Certified Alcohol And Drug Counselor Name Role Phone Jessica Santamaria MD Primary Care Provider [phone] Encounter Details Date Type Department Care Team (Late Contact Info) Description 08/20/2023 Documentation Only [facility] [place], [address] [place] [address] [place], [place] [address] [place] [address] Social History Tobacco Use Types [...] Support [facility] [place] [address] [place] [address] Shavon Ng FNP-C [address] [place] [address] documented as of this encounter Visit Diagnoses Not on filedocumented in this encounter Care Teams Certified Alcohol And Drug Counselor Relationship Specialty Start Date End Date Jessica Santamaria MD [address] [place], [place] PCP - General 04/04/19 documented as of this encounter
== END 2025-05-18 15:37 | disposition home or self-care (01) ==
LOC: HO.XRAY 15:36
PROVIDERS: PCP Internal Medicine; Visit Provider Student in an Organized Health Care Education/Training Program
DX: S92.355A Nondisplaced fracture of fifth metatarsal bone, left foot, initial encounter for closed fracture (principal); S92.353A Displaced fracture of fifth metatarsal bone, unspecified foot, initial encounter for closed fracture; S99.922A Unspecified injury of left foot, initial encounter
CPT/HCPCS: 73630

== ENCOUNTER → 2025-05-18 15:40 | Outpatient (BNV) | payer OTHER, SELFPAY | PROVIDERS: PCP Internal Medicine; Visit Provider Radiology Diagnostic Radiology | DX: S92.355D Nondisplaced fracture of fifth metatarsal bone, left foot, subsequent encounter for fracture with routine healing (principal) | CPT/HCPCS: 73630 ==